=== PATIENT | female | born 1980 | race American Indian/Alaskan Native ===

== ENCOUNTER 2016-11-16 09:20 | Inpatient (IN) | payer MEDICARE ==
[2016-11-16] MEDS ORDERED: SUBLIMAZE IV ONE ×2 (11:10→12:25)
[2016-11-16] MEDS ORDERED: BENADRYL IV ONE (11:10)
[2016-11-16] MEDS ORDERED: REGLAN IV ONE (11:10)
--- NOTE | 2016-11-16 11:16 | Emergency Department Report ---
HPI - General Chief Complaint: Nausea/Vomiting/Diarrhea Time Seen by Provider: 11/16/16 11:02 - HPI HPI: Room 9 The patient is a 36-year-old female presenting with a chief complaint of abdominal pain. The patient states she has a history of gastroparesis since 05: 00 this morning she has had a "flare up." The patient states the pain feels like her gastroparesis with discomfort in the epigastric region associated with nausea and vomiting. Patient denies fever but does admit to diarrhea. The patient gives her pain a score of 10/10. The patient's mother reports the patient was recently at [facility] for a GI bleed secondary to 3 bleeding ulcers Location: Epigastric region Duration: Consistent since 05:00 Quality: Feels "like gastroparesis" Severity: 10/10 Modifying factors: [see above] Context: [see above] Mode of transportation: [not driving] ED Past Medical Hx - Past Medical History Previous Medical History?: Yes Hx Hypertension: Yes Hx Congestive Heart Failure: Yes Hx Diabetes: Yes Hx Renal Disease: Yes ( Tuesday) Hx Asthma: Yes Hx COPD: Yes Hx HIV: No Additional medical history: gastroporesis - Surgical History Past Surgical History?: Yes Hx Cholecystectomy: Yes Additional Surgical History: c section, tubal ligation. fistula right arm - Family History Family history: no significant - Social History Smoking Status: Never Smoker Substance Use Type: None - Medications Home Medications: Home Medications Medication Instructions Recorded Confirmed Last Taken Type Labetalol [Normodyne TAB] 100 mg PO Q8HR #90 tablet 08/20/16 10/14/16 10/13/16 Rx Losartan [Cozaar] 100 mg PO QDAY #30 tablet 08/20/16 10/14/16 10/13/16 Rx Metoclopramide [Reglan ORAL LIQ] 10 mg PO TID 30 Days 08/21/16 10/14/16 Rx NIFEdipine XL [Procardia Xl] 90 mg PO BID #60 tablet 08/21/16 10/14/16 10/13/16 Rx HYDROcodone/APAP 5-325 [[place] 1 each PO Q8H PRN #10 tablet 09/11/16 10/14/16 Rx 5/325] cloNIDine [Catapres] 0.2 mg PO TID #90 tablet 09/11/16 10/14/16 10/13/16 Rx ED Review of Systems ROS: Stated complaint: NAUSEA/VOMITING Other details as noted in HPI Comment: All other systems reviewed and negative Constitutional: denies: chills, fever Eyes: denies: eye pain, eye discharge, vision change ENT: denies: ear pain, throat pain Respiratory: denies: cough, shortness of breath, wheezing Cardiovascular: denies: chest pain, palpitations Endocrine: no symptoms reported Gastrointestinal: abdominal pain, nausea, vomiting, diarrhea Genitourinary: denies: urgency, dysuria, discharge Musculoskeletal: back pain. denies: joint swelling, arthralgia Skin: denies: rash, lesions Neurological: denies: headache, weakness, paresthesias Psychiatric: denies: anxiety, depression Hematological/Lymphatic: denies: easy bleeding, easy bruising Physical Exam - Physical Exam Vital Signs: Vital Signs 11/16/16 09:57 Temperature 98.6 F Pulse Rate 116 H Respiratory 22 Rate Blood Pressure 194/99 O2 Sat by Pulse 99 Oximetry Physical Exam: GENERAL: The patient is well-developed well-nourished female rocking on stretcher appearing to be in moderate discomfort. [] HEENT: Normocephalic. Atraumatic. NECK: Supple. Trachea midline CHEST/LUNGS: Clear to auscultation. There is no respiratory distress noted. HEART/CARDIOVASCULAR: Regular. There is no tachycardia. There is no gallop rub or murmur. ABDOMEN: Abdomen is soft with epigastric discomfort to palpation. Patient has normal bowel sounds. There is no abdominal distention. SKIN: There is no rash. There is no edema. There is no diaphoresis. NEURO: The patient is awake, alert, and oriented. The patient is cooperative. The patient has normal speech MUSCULOSKELETAL: There is no evidence of acute injury. ED Course Vital Signs 11/16/16 09:57 Temperature 98.6 F Pulse Rate 116 H Respiratory 22 Rate Blood Pressure 194/99 O2 Sat by Pulse 99 Oximetry - Consultations Consultation #1: 11/16/16 11:[address] Pearl drake with transfusion of 2 units of red blood cells. Will follow Consultation #2: 11/16/16 11:59 GI paged 12:11-case discussed with Dr. Hudson 11/16/16 12:11 ED Medical Decision Making - Lab Data Result diagrams: 11/16/16 10:01 11/16/16 10:01 Laboratory Tests 11/16/16 11/16/16 10:01 10:01 WBC 9.4 RBC 1.92 L Hgb 5.3 L* Hct 16.0 L* MCV 83 MCH 28 MCHC 33 RDW 16.0 H Plt Count 363 Seg Neutrophils % Oracle Database Consultant Sodium 135 L Potassium 4.7 Chloride 94.1 L Carbon Dioxide 26 Anion Gap 20 BUN 88 H Creatinine 9.2 H Estimated GFR 6 BUN/Creatinine Ratio 9.56 Glucose 186 H Calcium 8.2 L Total Bilirubin 0.3 AST 8 ALT < 5 L Alkaline Phosphatase 84 Total Protein 6.7 Albumin 3.3 L Albumin/Globulin Ratio 1.0 Lipase 57 - Differential Diagnosis gastroparesis, GERD, malingering, hypertension Critical care attestation.: If time is entered above; I have spent that time in minutes in the direct care of this critically ill patient, excluding procedure time. ED Disposition Clinical Impression: Gastroparesis, ESRD on hemodialysis, Abdominal pain, GI bleed Disposition: OP ADMITTED IP TO THIS HOSP Is pt being admited?: Yes Does the pt Need Aspirin: No Condition: Serious Referrals: PRIMARY CARE, [Primary Care Provider] - 3-5 Days Time of Disposition: 11:45 (hospitalist paged)
[2016-11-16 11:21] LABS: Mean Corpuscular HGB Conc 33 % (30-34); Mean Corpuscular Hemoglobin 28 pg (28-32); Mean Corpuscular Volume 83 fl (79-97); Platelet Count 363 K/mm3 (140-440); Red Blood Count 1.92 M/mm3 (3.65-5.03); White Blood Count 9.4 K/mm3 (4.5-11.0)
[2016-11-16 11:24] LABS: Hemoglobin 5.3 gm/dl (10.1-14.3)
[2016-11-16] MEDS ORDERED: NACL 0.9% 500 ML 500 ML IV ONE (11:25)
[2016-11-16 11:37] LABS: Albumin 3.3 g/dL (3.9-5); Alkaline Phosphatase 84 units/L (35-129); Anion Gap 20 mmol/L; BUN/Creatinine Ratio 9.56; Bilirubin,Total 0.3 mg/dL (0.1-1.2); Blood Urea Nitrogen 88 mg/dL (7-17); Calcium 8.2 mg/dL (8.4-10.2); Carbon Dioxide 26 mmol/L (22-30); Chloride 94.1 mmol/L (98-107); Glucose 186 mg/dL (65-100); Lipase 57 units/L (13-60); Potassium 4.7 mmol/L (3.6-5.0); Sodium 135 mmol/L (137-145); Total Protein 6.7 g/dL (6.3-8.2)
[2016-11-16 11:38] LABS: Alanine Aminotransferase < 5 units/L (7-56)
[2016-11-16] MEDS ORDERED: PROTONIX IV ONE (11:58)
[2016-11-16 12:07] LABS: Anisocytosis 1+; Basophils % (Manual) 0 % (0.0-1.8); Blastocytes % (Manual) 0 %; Eosinophils % (Manual) 0 % (0.0-4.3); Hypochromasia 1+
[2016-11-16 12:08] LABS: Diff Status Complete; Microcytosis 1+; Ovalocytes Few
--- NOTE | 2016-11-16 12:11 | Admit Criteria Form ---
Admission Criteria Documentation: ANEMIA, IRON DEFICIENCY OR UNSPECIFIED Clinical Indications for Inpatient Care (Place 'X' for any and all applicable criteria): Admission is indicated for ANY ONE of the following(1)(2)(3)(4)(5)(6)(7): [X] I. Inpatient admission required rather than observation care (Also use Anemia, Iron Deficiency or Unspecified: Observation Care guideline as appropriate) because of ANY ONE of the following: [] a) Hemodynamic instability that is severe or persistent [] b) Active bleeding that cannot be rapidly controlled [] c) CVS symptoms (i.e., dyspnea, chest pain, heart failure) that are severe or persistent [] d) Neurologic symptoms (i.e., cognitive impairment, recurrent syncope or near syncope) that are severe or persistent [] e) Cardiac arrhythmias of immediate concern [] f) Acute peripheral ischemia (e.g., pulseless, cool, mottled, or cyanotic extremity) [] g) High-risk low platelet count [X] h) Acute renal failure [X] i) Ongoing transfusion for blood loss (greater than 2 units) [] j) IV fluid to replace significant ongoing (eg, >24 hours) losses (> 3 L/m2 per day) [] k) Pulmonary artery catheter monitoring [] l) Supplemental oxygen or respiratory treatments for over 24 hours that are performable only in acute inpatient setting [] m) Immediate inpatient surgery [X] n) Other condition, treatment or monitoring requiring inpatient admission [] II Active massive hemorrhage [] III. Active hemolysis with rapidly progressive anemia [A](6) Extended stay beyond goal length of stay may be needed for (17)(18) []a) Diagnosed cause of anemia requiring longer hospitalization (eg, active GI bleeding, immune hemolysis requiring electrophoresis, complications of malignancy requiring acute care []b) Continued emergent anemia indicators (23) []c) Transfusion reactions []d) Associated leukopenia or thrombocytopenia needing inpatient care []e) Active comorbidities (eg, renal failure, heart failure) The original [facility] content created by [facility] has been revised. The portions of the content which have been revised are identified through the use of italic text or in bold. [facility] Guidelines has neither reviewed nor approved the modified material. All other unmodified content is copyright [facility]. Please see references footnoted in the original [facility] edition 2016 Admission Criteria Met: Yes
[2016-11-16] MEDS ORDERED: ATIVAN IV ONE (12:25)
[2016-11-16] MEDS ORDERED: DILAUDID ONE (12:35)
[2016-11-16] MEDS: DILAUDID IV PRN ×3 (12:45→23:54)
--- NOTE | 2016-11-16 14:02 | Gastroenterology Consultation ---
History of Present Illness - Reason for Consult Consult date: 11/16/16 CGE, anemia - History of Present Illness Ms. Brownlee is a 36 y/o female admitted with reported abdominal pain and CGE. She is currently very lethargic and a poor historian, therefore, information is initially obtained per chart review and nursing. The patient reports "red" in her emesis, however nursing report since she has been in the ED her emesis appears dark. She is noted to have an H/H of 5.3/. She denies NSAID use but reports a hx of gastroparesis. Of note, she was recently seen twice during October at [facility] once for respiratory failure and once for GI bleeding. on she underwent EGD with [facility] for hematemesis and was found to have 3 gastric ulcers, one with visible vessel requiring APC, injection and clip. It was thought to be NSAID induced as, per note, she has underwent several EGDS in the past that were negative with a negative H pylori. She was last discharged from [facility] on 11/12/16 post respiratory failure 2/2 pulmonary edema requiring BIPAP. Past History Past Medical History: anemia, COPD, diabetes, dialysis, ESRD, heart failure, hypertension, renal failure Past Surgical History: Other (graft) Social history: lives with family Family history: no significant family history Medications and Allergies Allergies Allergy/AdvReac Type Severity Reaction Status Date / Time lisinopril Allergy Shortness Verified 09/07/16 11:27 of Breath morphine Allergy Hives Verified 09/17/16 21:15 Penicillins Allergy Hives Verified 09/07/16 11:27 Home Medications Medication Instructions Recorded Confirmed Last Taken Type Labetalol [Normodyne TAB] 100 mg PO Q8HR #90 tablet 08/20/16 10/14/16 10/13/16 Rx Losartan [Cozaar] 100 mg PO QDAY #30 tablet 08/20/16 10/14/16 10/13/16 Rx Metoclopramide [Reglan ORAL LIQ] 10 mg PO TID 30 Days 08/21/16 10/14/16 Rx NIFEdipine XL [Procardia Xl] 90 mg PO BID #60 tablet 08/21/16 10/14/16 10/13/16 Rx HYDROcodone/APAP 5-325 [[place] 1 each PO Q8H PRN #10 tablet 09/11/16 10/14/16 Rx 5/325] cloNIDine [Catapres] 0.2 mg PO TID #90 tablet 09/11/16 10/14/16 10/13/16 Rx Active Meds: Active Medications Hydromorphone HCl (Dilaudid) 1 mg IV Q4H PRN PRN Reason: Pain Last Admin: 11/16/16 12:45 Dose: 1 mg Review of Systems - Review of Systems ROS unobtainable: due to mental status All systems: negative Exam - Constitutional Vital Signs: Temp Pulse Resp BP Pulse Ox 98.6 F 116 H 22 194/99 99 11/16/16 09:57 11/16/16 09:57 11/16/16 12:45 11/16/16 09:57 11/16/16 09:57 General appearance: no acute distress, other (drowsy) - EENT Eyes: EOM intact ENT: hearing intact - Neck Neck: supple - Respiratory Respiratory: bilateral: CTA - Cardiovascular Rhythm: regular Heart Sounds: Present: S1 & S2 - Gastrointestinal General gastrointestinal: Present: soft, tender (TTP throughout), non-distended , normal bowel sounds - Integumentary Integumentary: Present: warm, dry - Neurologic Neurological: other (drowsy) - Psychiatric Psychiatric: cooperative - Labs CBC & Chem 7: 11/16/16 10:01 11/16/16 10:01 Lab Results: Laboratory Results - last 24 hr 11/16/16 11/16/16 10:01 10:01 WBC 9.4 RBC 1.92 L Hgb 5.3 L* Hct 16.0 L* MCV 83 MCH 28 MCHC 33 RDW 16.0 H Plt Count 363 Add Manual Diff Complete Total Counted 100 Seg Neutrophils % Aquatic Instructor Seg Neuts % (Manual) 97.0 H Band Neutrophils % 0 Lymphocytes % (Manual) 2.0 L Reactive Lymphs % (Man) 0 Monocytes % (Manual) 1.0 Eosinophils % (Manual) 0 Basophils % (Manual) 0 Metamyelocytes % 0 Myelocytes % 0 Promyelocytes % 0 Blast Cells % 0 Nucleated RBC % Not Reportable Seg Neutrophils # Man 9.1 H Band Neutrophils # 0.0 Lymphocytes # (Manual) 0.2 L Abs React Lymphs (Man) 0.0 Monocytes # (Manual) 0.1 Eosinophils # (Manual) 0.0 Basophils # (Manual) 0.0 Metamyelocytes # 0.0 Myelocytes # 0.0 Promyelocytes # 0.0 Blast Cells # 0.0 WBC Morphology Not Reportable Hypersegmented Neuts Not Reportable Hyposegmented Neuts Not Reportable Hypogranular Neuts Not Reportable Smudge Cells Not Reportable Toxic Granulation Not Reportable Toxic Vacuolation Not Reportable Dohle Bodies Not Reportable Pelger-Huet Anomaly Not Reportable Sarah Rods Not Reportable Platelet Estimate Appears normal Clumped Platelets Not Reportable Plt Clumps, EDTA Not Reportable Large Platelets Not Reportable Giant Platelets Not Reportable Platelet Satelliting Not Reportable Plt Morphology Comment Not Reportable RBC Morphology Not Reportable Dimorphic RBCs Not Reportable Polychromasia Not Reportable Hypochromasia 1+ Poikilocytosis Not Reportable Anisocytosis 1+ Microcytosis 1+ Macrocytosis Not Reportable Spherocytes Not Reportable Pappenheimer Bodies Not Reportable Sickle Cells Not Reportable Target Cells Not Reportable Tear Drop Cells Not Reportable Ovalocytes Few Helmet Cells Not Reportable [place] Bodies Not Reportable [place] Rings Not Reportable [place] Cells Not Reportable Bite Cells Not Reportable Crenated Cell Not Reportable Elliptocytes Not Reportable Acanthocytes (Spur) Not Reportable Rouleaux Not Reportable Hemoglobin C Crystals Not Reportable Schistocytes Not Reportable Malaria parasites Not Reportable Jerald Bodies Not Reportable Hem Pathologist Commnt No Sodium 135 L Potassium 4.7 Chloride 94.1 L Carbon Dioxide 26 Anion Gap 20 BUN 88 H Creatinine 9.2 H Estimated GFR 6 BUN/Creatinine Ratio 9.56 Glucose 186 H Calcium 8.2 L Total Bilirubin 0.3 AST 8 ALT < 5 L Alkaline Phosphatase 84 Total Protein 6.7 Albumin 3.3 L Albumin/Globulin Ratio 1.0 Lipase 57 Assessment and Plan 1. CGE 2. Severe Anemia -Agree with transfusion -Continue to monitor H/H -Hold all blood thinning meds -PPI gtt -Keep NPO -EGD tomorrow after transfusion 2. ESRD -HD Per Renal.
--- NOTE | 2016-11-16 15:39 | History and Physical Report ---
History of Present Illness Date of examination: 11/16/16 Date of admission: 11/16/16 12:49 Chief complaint: Abdominal pain History of present illness: Patient is a 35-year-old woman with a history of hypertension, end-stage renal disease on hemodialysis, asthma, type 2 diabetes mellitus on insulin and gastroparesis who presented for severe worsening constant diffuse radiating all over abdominal pains started that today without any aggravating or relieving factors associated with nausea vomiting and coffee-ground emesis. She had a whole workup full of coffee ground emesis. Patient is writhing in pain as a IV Dilaudid. She presented initially here 10/14/2016 and left AMA. Then She went to [facility] and was admitted and found to have bleeding ulcers. I have already spoken to the gastroenterology, Dr. José Hudson at [facility] station. Past History Past Medical History: anemia, COPD, diabetes, dialysis, ESRD, heart failure, hypertension, renal failure Past Surgical History: Other (graft) Social history: lives with family Family history: no significant family history Medications and Allergies Allergies Allergy/AdvReac Type Severity Reaction Status Date / Time lisinopril Allergy Shortness Verified 09/07/16 11:27 of Breath morphine Allergy Hives Verified 09/17/16 21:15 Penicillins Allergy Hives Verified 09/07/16 11:27 Home Medications Medication Instructions Recorded Confirmed Last Taken Type Labetalol [Normodyne TAB] 100 mg PO Q8HR #90 tablet 08/20/16 10/14/16 10/13/16 Rx Losartan [Cozaar] 100 mg PO QDAY #30 tablet 08/20/16 10/14/16 10/13/16 Rx Metoclopramide [Reglan ORAL LIQ] 10 mg PO TID 30 Days 08/21/16 10/14/16 Rx NIFEdipine XL [Procardia Xl] 90 mg PO BID #60 tablet 08/21/16 10/14/16 10/13/16 Rx HYDROcodone/APAP 5-325 [[place] 1 each PO Q8H PRN #10 tablet 09/11/16 10/14/16 Rx 5/325] cloNIDine [Catapres] 0.2 mg PO TID #90 tablet 09/11/16 10/14/16 10/13/16 Rx Active Meds: Active Medications Hydromorphone HCl (Dilaudid) 1 mg IV Q4H PRN PRN Reason: Pain Last Admin: 11/16/16 12:45 Dose: 1 mg Pantoprazole Sodium 80 mg/ (Sodium Chloride) 100 mls @ 10 mls/hr IV Q10H GABRIELLA PRN Reason: 8 MG/HR Sodium Chloride (Nacl 0.9% 1000 Ml) 1,000 mls @ 50 mls/hr IV DIRECT GABRIELLA Review of Systems All systems: negative (as HPI and all other ROS reviewed and negative.) Exam - Physical Exam Narrative exam: GEN: Ill-appearing NAD, AWAKE, ALERT, ORIENTATED 3 HEENT: NCAT, PERRL, EOMI, OP DRY NECK: SUPPLE, NO THYROMEGALY, NO JVD, NO LAD CVS: Regular tachycardic NORMAL S1S2 LUNGS/CHEST: CTA B, NORMAL CHEST EXPANSION B, GOOD AIR ENTRY B ABD: SOFT, DIFFUSE TENDERNESS IS EPIGASTRIC REGION GBS, NO REBOUND, SOME GUARDING EXT/SKIN: NO SIGNIFICANT EDEMA OR RASH MSK: FROM X 4 EXTREMITIES NEURO: CN 2-12 GROSSLY INTACT, NO NEW FOCAL DEFICITS PSY: Anxious - Constitutional Vitals: Temp Pulse Resp BP Pulse Ox 98.1 F 116 H 20 184/89 96 11/16/16 15:31 11/16/16 15:31 11/16/16 15:31 11/16/16 15:31 11/16/16 15:15 Results - Labs CBC & Chem 7: 11/16/16 10:01 11/16/16 10:01 Labs: Abnormal lab results 11/16/16 Range/Units 13:45 Crossmatch See Detail Assessment and Plan Patient is a 36-year-old woman with a history of hypertension, end-stage renal disease on hemodialysis, asthma, diabetes mellitus on insulin and gastroparesis who presented for severe worsening constant diffuse radiating all over abdominal pains started that today without any aggravating or relieving factors associated with nausea vomiting and coffee-ground emesis. She had a whole workup full of coffee ground emesis. Patient is writhing in pain as a IV Dilaudid. She presented initially here 10/14/2016 and left AMA. Then She went to [facility] and was admitted and found to have bleeding ulcers. I have already spoken to the gastroenterology, Dr. José Hudson at nurses station. She was found have hemoglobin was 5.3 and tachycardic. I have requested she be admitted to ICU. 1. Acute GI hemorrhage most likely upper GI from peptic ulcer disease: Consulted GI, endoscopy pending, treat with Protonix drip, npo until cleared by GI 2. Anemia requiring blood transfusion: Patient has poor peripheral IV access; therefore, will transfuse blood during hemodialysis 3. Insulin-dependent diabetes mellitus: Add sliding scale 4. DVT prophylaxis: SCDs only due to GI bleed 5. GI prophylaxis: On Protonix drip for now full code dispo: icu
[2016-11-16] MEDS ORDERED: NACL 0.9% 1000 ML 1,000 ML IV SCH (16:00)
[2016-11-16] MEDS: PROTONIX 80 MG in NACL 0.9% 100 ML IV SCH (16:27)
[2016-11-16] MEDS: BENADRYL IV PRN (20:09)
[2016-11-17] MEDS: PROTONIX 80 MG in NACL 0.9% 100 ML IV SCH ×2 (01:25→20:31)
[2016-11-17] MEDS: BENADRYL IV PRN ×3 (02:53→21:07)
[2016-11-17] MEDS: ZOFRAN IV PRN ×3 (02:57→21:08)
[2016-11-17] MEDS: DILAUDID IV PRN ×3 (04:01→20:50)
[2016-11-17] MEDS ORDERED: NACL 0.9% 1000 ML 1,000 ML ONE (07:50)
[2016-11-17] MEDS ORDERED: WATER FOR IRRIG STERILE IR ONE ×2 (07:51→14:09)
[2016-11-17] MEDS ORDERED: HALDOL ONE (09:12)
[2016-11-17] MEDS ORDERED: ATIVAN ONE (12:14)
[2016-11-17] MEDS ORDERED: HALDOL IM ONE (14:00)
[2016-11-17] MEDS ORDERED: ATIVAN IV ONE (14:00)
[2016-11-17] MEDS ORDERED: DIPRIVAN 10 MG/ML IV ONE ×5 (14:18→16:20)
[2016-11-17 14:50] LABS: Mean Corpuscular HGB Conc 34 % (30-34); Mean Corpuscular Hemoglobin 28 pg (28-32); Mean Corpuscular Volume 84 fl (79-97); Platelet Count 302 K/mm3 (140-440); Red Blood Count 1.91 M/mm3 (3.65-5.03); Red Cell Distribution Width 15.3 % (13.2-15.2); White Blood Count 10.2 K/mm3 (4.5-11.0)
[2016-11-17 14:51] LABS: BUN/Creatinine Ratio 10.35; Calcium 7.5 mg/dL (8.4-10.2); Chloride 96.9 mmol/L (98-107); Potassium 4.2 mmol/L (3.6-5.0)
--- NOTE | 2016-11-17 15:01 | Anesthesia Consultation ---
Anesthesia Consult and Med Hx Date of service: 11/17/16 - Airway ROM Head & Neck: Adequate Mental/Hyoid Distance: Adequate Mallampati Class: Class II Intubation Access Assessment: Probably Good - Pulmonary Exam CTA: Yes - Cardiac Exam Cardiac Exam: RRR - Pre-Operative Health Status ASA Pre-Surgery Classification: ASA4 Proposed Anesthetic Plan: MAC - Pre-Anesthesia Comment Pre-Anesthesia Comments: Patient sedated; history obtained from chart; phone consent from mother - Pulmonary Hx Smoking: Yes Hx Asthma: Yes COPD: Yes Hx Pneumonia: No - Cardiovascular System Hx Hypertension: Yes (CHF) Hx Coronary Artery Disease: Yes - Central Nervous System CVA: Yes Hx Psychiatric Problems: No - Gastrointestinal Hx Ulcer: Yes - Endocrine Hx Renal Disease: Yes (HD Tuesday) Hx End Stage Renal Disease: Yes (last dialysis today 11/17/16) - Hematic Hx Anemia: Yes (severe anemia last H/H: 5.4/ received 4 units PRBCs today with dialysis) - Other Systems Hx Alcohol Use: Yes Hx Cancer: No (has 4 lumps in her breast, and ? intestinal cancer)
--- NOTE | 2016-11-17 15:04 | Consultation ---
History of Present Illness - Reason for Consult Consult date: 11/17/16 bleeding AVF and GI bleeding - History of Present Illness 36 year-old female woman with a history of hypertension, end-stage renal disease on hemodialysis M/W/F, asthma, type 2 diabetes mellitus on insulin with neuropathy, retinopathy and nephropathy, and gastroparesis who presented for severe abdominal pain and coffee ground emesis. She was recently seen twice during October at [facility] for respiratory failure and for GI bleeding and on 11/04/16 she underwent EGD with [facility] for hematemesis and was found to have 3 gastric ulcers, one with visible vessel requiring APC, injection and clip suspected to be NSAID related. She presented to [facility] on 10/14 and left AMA. She went to [facility] and has now represented to [facility]. Patient is pending EGD and may subsequently need embolization. In addition, patient is having prolonged bleeding after decannulation from AV access. Past History Past Medical History: anemia, COPD, diabetes, dialysis, ESRD, heart failure, hypertension, renal failure Past Surgical History: Other (graft) Social history: lives with family Family history: no significant family history Medications and Allergies Allergies Allergy/AdvReac Type Severity Reaction Status Date / Time lisinopril Allergy Shortness Verified 09/07/16 11:27 of Breath morphine Allergy Hives Verified 09/17/16 21:15 Penicillins Allergy Hives Verified 09/07/16 11:27 Home Medications Medication Instructions Recorded Confirmed Last Taken Type Labetalol [Normodyne TAB] 100 mg PO Q8HR #90 tablet 08/20/16 10/14/16 11/16/16 07:00 Rx Losartan [Cozaar] 100 mg PO QDAY #30 tablet 08/20/16 10/14/16 11/16/16 07:00 Rx Metoclopramide [Reglan ORAL LIQ] 10 mg PO TID 30 Days 08/21/16 10/14/16 07:00 Rx NIFEdipine XL [Procardia Xl] 90 mg PO BID #60 tablet 08/21/16 10/14/16 11/16/16 07:00 Rx 90mg HYDROcodone/APAP 5-325 [[place] 1 each PO Q8H PRN #10 tablet 09/11/16 10/14/16 07:00 Rx 5/325] cloNIDine [Catapres] 0.2 mg PO TID #90 tablet 09/11/16 11/16/16 11/16/16 07:00 Rx Active Meds: Active Medications Diphenhydramine HCl (Benadryl) 25 mg IV Q6H PRN PRN Reason: Itching Last Admin: 11/17/16 02:53 Dose: 25 mg Hydralazine HCl (Apresoline) 10 mg IV Q4HR PRN PRN Reason: HTN SBP>=180 OR CELENA>=110 Hydromorphone HCl (Dilaudid) 1 mg IV Q4H PRN PRN Reason: Pain Last Admin: 11/17/16 04:01 Dose: 1 mg Sodium Chloride (Nacl 0.9% 1000 Ml) 1,000 mls @ 50 mls/hr IV DIRECT GABRIELLA Pantoprazole Sodium 80 mg/ (Sodium Chloride) 100 mls @ 10 mls/hr IV DIRECT GABRIELLA PRN Reason: 8 MG/HR Last Admin: 11/17/16 01:25 Dose: 10 mls/hr Desmopressin Acetate 20 mcg/ (Sodium Chloride) 55 mls @ 100 mls/hr IV ONCE ONE Stop: 11/17/16 16:00 Labetalol HCl (Normodyne) 10 mg IV Q4H PRN PRN Reason: HTN SBP>=180 Ondansetron HCl (Zofran) 4 mg IV Q4H PRN PRN Reason: Nausea And Vomiting Last Admin: 11/17/16 02:57 Dose: 4 mg Review of Systems All systems: negative (see HPI) Exam - Constitutional Vitals: Temp Pulse Resp BP Pulse Ox 98.8 F 114 H 22 176/94 100 11/17/16 00:00 11/16/16 20:00 11/17/16 02:00 11/16/16 20:00 11/17/16 02:00 General appearance: Present: no acute distress - EENT Eyes: Present: EOM intact ENT: hearing intact - Respiratory Respiratory effort: normal - Cardiovascular Rhythm: other (tachycardic) - Extremities Extremities: normal temperature, normal color, abnormal (RUE AVF with bleeding from one of dialysis access sites ; technologist holding pressure) Peripheral Pulses: within normal limits (palpable DP bilateral, bilateral radial and ulnar) Results - Labs CBC & Chem 7: 11/17/16 06:29 11/17/16 04:00 Labs: Abnormal lab results 11/16/16 11/16/16 11/16/16 Range/Units 13:45 16:30 22:06 POC Glucose 144 H 115 H (70-105) Crossmatch See Detail Assessment and Plan 36-year-old female with end-stage renal disease and multiple episodes of upper GI bleed. Patient is experiencing prolonged bleeding from her 2 year old right upper extremity AV access site. 20 g of DDAVP was administered intravenously and this decreased the bleeding somewhat. Subsequently, Surgicel with 2 x 2's and tape was applied to the fistula site. There is a thrill proximal and distal to the access site. The patient has a right upper extremity port placed 1 year old which is probably resulting in outflow narrowing and subsequent prolonged bleeding. The patient will require a fistulogram with angioplasty. The patient has multiple episodes of upper GI bleeding. Gastroenterology is planning to perform endoscopy. Patient may require embolization to a targeted region based on the endoscopy findings or prior endoscopy findings at [facility]. Her prior endoscopy demonstrated multiple ulcers in the antrum with a 4 cm ulcer with a visible vessel noted. Patient will probably require both empiric gastroduodenal artery and fistulogram and angioplasty. The time course will be determined by GI and upper GI bleeding. NPO after midnight.
--- NOTE | 2016-11-17 15:06 | Anesthesia Day of Surgery ---
Anesthesia Day of Surgery - Day of Surgery Patient Examined: Yes Patient H&P Reviewed: Yes Patient is NPO: Yes Beta Blockers: Yes Cardiac Clearance: No Pulmonary Clearance: No
--- NOTE | 2016-11-17 15:13 | Gastroenterology Progress Note ---
Assessment and Plan 1. UGI bleeding. EGD is planned however, patient just got off dialysis and has had arterial bleeding from her access for the past 45 minutes despite compression after the catheter was removed. Dr. Kamari Rosales, interventional radiologist was consulted stat and DDAVP was ordered by him. Coags have been drawn. Her mother has given consent for the procedure due to a mental health disoder 2. ESRD on HD 3. Hypertension 4. AV shunt bleeding - now addressed as above. Subjective Date of service: 11/17/16 Principal diagnosis: UGI bleeding Interval history: The patient reports vomiting blood last around 5AM Objective - Constitutional Vitals: Temp Pulse Resp BP Pulse Ox 98.8 F 114 H 22 176/94 100 11/17/16 00:00 11/16/16 20:00 11/17/16 02:00 11/16/16 20:00 11/17/16 02:00 General appearance: no acute distress - EENT Eyes: PERRL, EOM intact ENT: hearing intact - Respiratory Respiratory effort: normal Respiratory: bilateral: CTA - Cardiovascular Rhythm: regular - Gastrointestinal General gastrointestinal: Present: soft, non-tender, non-distended, normal bowel sounds Rectal Exam: deferred - Genitourinary Female Genitourinary: deferred - Neurologic Neurological: alert and oriented x3 - Psychiatric Psychiatric: no appropriate mood/affect, no intact judgment & insight - Labs CBC & Chem 7: 11/16/16 10:01 11/16/16 10:01 Labs: Laboratory Results - last 24 hr 11/16/16 11/16/16 11/16/16 13:45 16:30 22:06 Estimated GFR BUN/Creatinine Ratio POC Glucose 144 H 115 H Blood Type B POSITIVE Antibody Screen Positive Antibody Identification Anti-E Crossmatch See Detail 11/17/16 04:00 Estimated GFR 10 BUN/Creatinine Ratio 10.35 POC Glucose Blood Type Antibody Screen Antibody Identification Crossmatch
--- NOTE | 2016-11-17 15:40 | Consultation ---
History of Present Illness - Reason for Consult Consult date: 11/17/16 end stage renal disease, accelerated hypertension Requesting physician: INA WILLOUGHBY - History of Present Illness 36-year-old lady with a history of end-stage renal disease secondary to diabetic /hypertensive nephropathy. Patient dialyzes on a Tuesday schedule at [facility] dialysis. Patient has a history of diabetic gastroparesis and has had numerous hospitalizations on account of exacerbations which are usually associated with accelerated hypertension and volume overload. She now presented with abdominal pain 10/10 in severity in association with N /V. No aggravating or relieving factors. She states that the vomitus is coffee ground in color. She states that her symptoms are similar to her previous presentations. Her Hgb in ED was 5.3. We made arrangements for emergency dialysis and recived 2 units of PRBCs on dialysis last night. Past History Past Medical History: diabetes (2 diabetes mellitus, occasional by retinopathy, neuropathy, gastroparesis), ESRD, GERD, hypertension, hyperlipidemia, renal failure, other (end-stage renal disease, hypertension, hyperlipidemia, diabetes with neuropathy, diabetic retinopathy, anxiety disorder, gastroparesis) Past Surgical History: , Other (cholecystectomy, section, surgery right leg following an accident, bilateral tubal ligation, laser therapy in both retina, right AV fistula, permacath placement) Social history: no significant social history, lives with family (lives with her children ages 16, 14 and 5. Her youngest child is disabled. Patient cares for the child with assistance of her mother who lives close by), other (he used to work as a waiter/waitress). denies: smoking, alcohol abuse, prescription drug abuse , IV drug use Family history: CAD (father of acute myocardial infraction about age 56), cancer (mother had lung cancer.), diabetes (both parents), hypertension (both parents) Medications and Allergies Allergies Allergy/AdvReac Type Severity Reaction Status Date / Time lisinopril Allergy Shortness Verified 09/07/16 11:27 of Breath morphine Allergy Hives Verified 09/17/16 21:15 Penicillins Allergy Hives Verified 09/07/16 11:27 Home Medications Medication Instructions Recorded Confirmed Last Taken Type Labetalol [Normodyne TAB] 100 mg PO Q8HR #90 tablet 08/20/16 10/14/16 11/16/16 07:00 Rx Losartan [Cozaar] 100 mg PO QDAY #30 tablet 08/20/16 10/14/16 11/16/16 07:00 Rx Metoclopramide [Reglan ORAL LIQ] 10 mg PO TID 30 Days 08/21/16 10/14/16 07:00 Rx NIFEdipine XL [Procardia Xl] 90 mg PO BID #60 tablet 08/21/16 10/14/16 11/16/16 07:00 Rx 90mg HYDROcodone/APAP 5-325 [[place] 1 each PO Q8H PRN #10 tablet 09/11/16 10/14/16 07:00 Rx 5/325] cloNIDine [Catapres] 0.2 mg PO TID #90 tablet 09/11/16 11/16/16 11/16/16 07:00 Rx Active Meds: Active Medications Diphenhydramine HCl (Benadryl) 25 mg IV Q6H PRN PRN Reason: Itching Last Admin: 11/17/16 02:53 Dose: 25 mg Hydralazine HCl (Apresoline) 10 mg IV Q4HR PRN PRN Reason: HTN SBP>=180 OR CELENA>=110 Hydromorphone HCl (Dilaudid) 1 mg IV Q4H PRN PRN Reason: Pain Last Admin: 11/17/16 04:01 Dose: 1 mg Sodium Chloride (Nacl 0.9% 1000 Ml) 1,000 mls @ 50 mls/hr IV DIRECT GABRIELLA Pantoprazole Sodium 80 mg/ (Sodium Chloride) 100 mls @ 10 mls/hr IV DIRECT GABRIELLA PRN Reason: 8 MG/HR Last Admin: 11/17/16 01:25 Dose: 10 mls/hr Desmopressin Acetate 20 mcg/ (Sodium Chloride) 55 mls @ 100 mls/hr IV ONCE ONE Stop: 11/17/16 16:00 Labetalol HCl (Normodyne) 10 mg IV Q4H PRN PRN Reason: HTN SBP>=180 Ondansetron HCl (Zofran) 4 mg IV Q4H PRN PRN Reason: Nausea And Vomiting Last Admin: 11/17/16 02:57 Dose: 4 mg Review of Systems All systems: negative Constitutional: fatigue, malaise, poor appetite, no weight loss, no weight gain , no chills Ears, nose, mouth and throat: no tinnitis, no decreased hearing, no nasal congestion Breasts: deferred Cardiovascular: shortness of breath, no chest pain, no orthopnea, no palpitations Respiratory: no cough, no excessive sputum Gastrointestinal: abdominal pain, nausea, vomiting, hematemesis Genitourinary Female: no dyspareunia, no dysmenorrhea, no pelvic pain Rectal: no pain, no incontinence Musculoskeletal: no neck stiffness, no neck pain Integumentary: no rash, no pruritis Neurological: no paralysis, no weakness, no parathesias, no lack of coordination Psychiatric: no anxiety, no memory loss Endocrine: no cold intolerance, no heat intolerance Hematologic/Lymphatic: no easy bruising, no easy bleeding Allergic/Immunologic: no urticaria Exam - Vital Signs Vital signs: Vital Signs Pulse Ox 98 11/16/16 09:48 - Physical Exam Narrative exam: General appearance: well-developed, well-nourished, appears stated age, moderate distress EENT: PERRL, mucous membranes moist, pale conjectiva Neck: Present: neck supple, trachea midline. Absent: JVD/HJR, Masses Respiratory: Decreased Breath Sounds, no wheezing Heart: regular, normal heart rate, S1S2, no murmurs Gastrointestinal: Present: normal. Absent: tenderness, distended, masses, guarding Integumentary: no rash, warm and dry Neurologic: no focal deficit, alert and oriented x3, gait normal, strength 5/5 Musculoskeletal: Absent: deformities, joint swelling Psychiatric: mood/affect appropriate, cooperative Results - Lab Results 11/16/16 10:01 11/17/16 04:00 Most recent lab results Calcium 7.5 mg/dL (8.4-10.2) L 11/17/16 04:00 Assessment and Plan 1. ESRD on HD 2. Malignant Hypertension 3. Pulmonary edema 4. Gastroparesis exacerbation 5. Nausea/vomiting 2/2 #4 6. Abdominal pain 2/2 #4 7. Severe pulmonary HTN on Sildinafile therapy 8. Anemia of ESRD and acute GI blood loss 9. GI bleeding 10. DM II with ESRD 11. Excessive bleeding from AVF ? stenosis Plan: -Start Cardene drip, current BP over 200 and she is unable to take oral antihypertensives 2/2 GI bleeding -She has dialysis last night and today with total net UF of 8 L -Will reevaluate for dialysis in am -Pain control -EGD per GI -Recheck H/H (so far she has received 4 units of PRBCs) -No ESAs with her present BP -Vascular consult R: excessive bleeding from AVF -Check coags -DDAVP to help with bleeding Thank you
--- NOTE | 2016-11-17 15:44 | Consultation ---
History of Present Illness - Reason for Consult Consult date: 11/17/16 GI Bleed Requesting physician: ZITA RDZ - History of Present Illness 36 y/o female with ESRD on HD admitted with GI bleed. apparently was seen at [facility] just a few days to weeks ago with ulcers that were bleeding. Scoped at that time. Not sure what was done. Presents today with low hemoglobin. Also in need of HD. Past History Past Medical History: anemia, COPD, diabetes, dialysis, ESRD, heart failure, hypertension, renal failure Past Surgical History: Other (graft) Social history: lives with family Family history: no significant family history Medications and Allergies Allergies Allergy/AdvReac Type Severity Reaction Status Date / Time lisinopril Allergy Shortness Verified 09/07/16 11:27 of Breath morphine Allergy Hives Verified 09/17/16 21:15 Penicillins Allergy Hives Verified 09/07/16 11:27 Home Medications Medication Instructions Recorded Confirmed Last Taken Type Labetalol [Normodyne TAB] 100 mg PO Q8HR #90 tablet 08/20/16 10/14/16 11/16/16 07:00 Rx Losartan [Cozaar] 100 mg PO QDAY #30 tablet 08/20/16 10/14/16 11/16/16 07:00 Rx Metoclopramide [Reglan ORAL LIQ] 10 mg PO TID 30 Days 08/21/16 10/14/16 07:00 Rx NIFEdipine XL [Procardia Xl] 90 mg PO BID #60 tablet 08/21/16 10/14/16 11/16/16 07:00 Rx 90mg HYDROcodone/APAP 5-325 [[place] 1 each PO Q8H PRN #10 tablet 09/11/16 10/14/16 07:00 Rx 5/325] cloNIDine [Catapres] 0.2 mg PO TID #90 tablet 09/11/16 11/16/16 11/16/16 07:00 Rx Active Meds: Active Medications Diphenhydramine HCl (Benadryl) 25 mg IV Q6H PRN PRN Reason: Itching Last Admin: 11/17/16 02:53 Dose: 25 mg Hydralazine HCl (Apresoline) 10 mg IV Q4HR PRN PRN Reason: HTN SBP>=180 OR CELENA>=110 Hydromorphone HCl (Dilaudid) 1 mg IV Q4H PRN PRN Reason: Pain Last Admin: 11/17/16 04:01 Dose: 1 mg Sodium Chloride (Nacl 0.9% 1000 Ml) 1,000 mls @ 50 mls/hr IV DIRECT GABRIELLA Pantoprazole Sodium 80 mg/ (Sodium Chloride) 100 mls @ 10 mls/hr IV DIRECT GABRIELLA PRN Reason: 8 MG/HR Last Admin: 11/17/16 01:25 Dose: 10 mls/hr Desmopressin Acetate 20 mcg/ (Sodium Chloride) 55 mls @ 100 mls/hr IV ONCE ONE Stop: 11/17/16 16:00 Labetalol HCl (Normodyne) 10 mg IV Q4H PRN PRN Reason: HTN SBP>=180 Ondansetron HCl (Zofran) 4 mg IV Q4H PRN PRN Reason: Nausea And Vomiting Last Admin: 11/17/16 02:57 Dose: 4 mg Exam - Constitutional Vitals: Temp Pulse Resp BP Pulse Ox 98.8 F 114 H 22 176/94 100 11/17/16 00:00 11/16/16 20:00 11/17/16 02:00 11/16/16 20:00 11/17/16 02:00 Results - Labs CBC & Chem 7: 11/16/16 10:01 11/17/16 04:00 Labs: Abnormal lab results 11/16/16 11/16/16 11/16/16 Range/Units 13:45 16:30 22:06 Chloride (98-107) mmol/L BUN (7-17) mg/dL Creatinine (0.7-1.2) mg/dL Glucose (65-100) mg/dL POC Glucose 144 H 115 H (70-105) Calcium (8.4-10.2) mg/dL Crossmatch See Detail 11/17/16 Range/Units 04:00 Chloride 96.9 L (98-107) mmol/L BUN 58 H (7-17) mg/dL Creatinine 5.6 H (0.7-1.2) mg/dL Glucose 191 H (65-100) mg/dL POC Glucose (70-105) Calcium 7.5 L (8.4-10.2) mg/dL Crossmatch Assessment and Plan 36 y/o with ESRD on HD, admitted with acute blood loss anemia, thought secondary to GI bleed, now with bleeding right arm fistula. 1. DDAVP given by vascular 2. Patient may need ballooning for tamponade therapy 3. Still needs to be scoped by GI 4. Control BP 5. Volume removal per HD 6. Transfuse for HgB less than 7. has had 4 units total since admit 7. Overall prognosis is guarded, will need more blood products most likely. CCT 31 minutes
[2016-11-17] MEDS: APRESOLINE IV PRN ×2 (15:45→23:42)
[2016-11-17] MEDS ORDERED: DDAVP 20 MCG in NACL 0.9% 50 ML IV ONE (15:59)
--- NOTE | 2016-11-17 16:06 | Progress Note ---
Assessment and Plan Assessment and plan: 1. Acute GI hemorrhage most likely upper GI from peptic ulcer disease with anemia requiring transfusion- for transfusion; f/u GI for further recommendations- for EGD; refused passage of NGT; cont Protonix drip, npo; monitor H/H 2. Insulin-dependent diabetes mellitus-cotn sliding scale 3. DVT prophylaxis: SCDs only due to GI bleed 5. ESRD on HD- f/u renal for HD; monitor lytes 6. Mental disorder-? MR- psyche consult CCT exclusive of all other billable procedures 34 minutes History Interval history: f/u GIB; severe anemia Recently seen at the bedside, refusing passage of NG tube Hospitalist Physical - Constitutional Vitals: Temp Pulse Resp BP Pulse Ox 98.8 F 114 H 22 176/94 100 11/17/16 00:00 11/16/16 20:00 11/17/16 02:00 11/16/16 20:00 11/17/16 02:00 General appearance: Present: no acute distress, well-nourished - EENT Eyes: Present: PERRL, EOM intact. Absent: scleral icterus, conjunctival injection ENT: hearing intact, no clear oral mucosa (membranes pale), no oropharyngeal erythema, no poor dentition - Neck Neck: Present: supple, normal ROM. Absent: enlarged thyroid, masses or JVD - Respiratory Respiratory effort: normal Respiratory: negative: diminished, rales, rhonchi, wheezing - Cardiovascular Rhythm: regular Heart Sounds: Present: S1 & S2. Absent: gallop - Extremities Extremities: no ischemia, pulses intact, pulses symmetrical, No edema Peripheral Pulses: within normal limits - Abdominal General gastrointestinal: soft, non-tender, non-distended, normal bowel sounds - Integumentary Integumentary: Present: clear - Psychiatric Psychiatric: appropriate mood/affect, intact judgment & insight, cooperative - Neurologic Neurologic: CNII-XII intact, moves all extremities Results - Labs CBC & Chem 7: 11/16/16 10:01 11/17/16 04:00 Labs: Laboratory Last Values WBC 9.4 K/mm3 (4.5-11.0) 11/16/16 10:01 RBC 1.92 M/mm3 (3.65-5.03) L 11/16/16 10:01 Hgb 5.3 gm/dl (10.1-14.3) L* 11/16/16 10:01 Hct 16.0 % (30.3-42.9) L* 11/16/16 10:01 MCV 83 fl (79-97) 11/16/16 10:01 MCH 28 pg (28-32) 11/16/16 10:01 MCHC 33 % (30-34) 11/16/16 10:01 RDW 16.0 % (13.2-15.2) H 11/16/16 10:01 Plt Count 363 K/mm3 (140-440) 11/16/16 10:01 Add Manual Diff Complete 11/16/16 10:01 Total Counted 100 11/16/16 10:01 Seg Neutrophils % Securities Attorney 11/16/16 10:01 Seg Neuts % (Manual) 97.0 % (40.0-70.0) H 11/16/16 10:01 Band Neutrophils % 0 % 11/16/16 10:01 Lymphocytes % (Manual) 2.0 % (13.4-35.0) L 11/16/16 10:01 Reactive Lymphs % (Man) 0 % 11/16/16 10:01 Monocytes % (Manual) 1.0 % (0.0-7.3) 11/16/16 10:01 Eosinophils % (Manual) 0 % (0.0-4.3) 11/16/16 10:01 Basophils % (Manual) 0 % (0.0-1.8) 11/16/16 10:01 Metamyelocytes % 0 % 11/16/16 10:01 Myelocytes % 0 % 11/16/16 10:01 Promyelocytes % 0 % 11/16/16 10:01 Blast Cells % 0 % 11/16/16 10:01 Nucleated RBC % Not Reportable 11/16/16 10:01 Seg Neutrophils # Man 9.1 K/mm3 (1.8-7.7) H 11/16/16 10:01 Band Neutrophils # 0.0 K/mm3 11/16/16 10:01 Lymphocytes # (Manual) 0.2 K/mm3 (1.2-5.4) L 11/16/16 10:01 Abs React Lymphs (Man) 0.0 K/mm3 11/16/16 10:01 Monocytes # (Manual) 0.1 K/mm3 (0.0-0.8) 11/16/16 10:01 Eosinophils # (Manual) 0.0 K/mm3 (0.0-0.4) 11/16/16 10:01 Basophils # (Manual) 0.0 K/mm3 (0.0-0.1) 11/16/16 10:01 Metamyelocytes # 0.0 K/mm3 11/16/16 10:01 Myelocytes # 0.0 K/mm3 11/16/16 10:01 Promyelocytes # 0.0 K/mm3 11/16/16 10:01 Blast Cells # 0.0 K/mm3 11/16/16 10:01 WBC Morphology Not Reportable 11/16/16 10:01 Hypersegmented Neuts Not Reportable 11/16/16 10:01 Hyposegmented Neuts Not Reportable 11/16/16 10:01 Hypogranular Neuts Not Reportable 11/16/16 10:01 Smudge Cells Not Reportable 11/16/16 10:01 Toxic Granulation Not Reportable 11/16/16 10:01 Toxic Vacuolation Not Reportable 11/16/16 10:01 Dohle Bodies Not Reportable 11/16/16 10:01 Pelger-Huet Anomaly Not Reportable 11/16/16 10:01 Sarah Rods Not Reportable 11/16/16 10:01 Platelet Estimate Appears normal 11/16/16 10:01 Clumped Platelets Not Reportable 11/16/16 10:01 Plt Clumps, EDTA Not Reportable 11/16/16 10:01 Large Platelets Not Reportable 11/16/16 10:01 Giant Platelets Not Reportable 11/16/16 10:01 Platelet Satelliting Not Reportable 11/16/16 10:01 Plt Morphology Comment Not Reportable 11/16/16 10:01 RBC Morphology Not Reportable 11/16/16 10:01 Dimorphic RBCs Not Reportable 11/16/16 10:01 Polychromasia Not Reportable 11/16/16 10:01 Hypochromasia 1+ 11/16/16 10:01 Poikilocytosis Not Reportable 11/16/16 10:01 Anisocytosis 1+ 11/16/16 10:01 Microcytosis 1+ 11/16/16 10:01 Macrocytosis Not Reportable 11/16/16 10:01 Spherocytes Not Reportable 11/16/16 10:01 Pappenheimer Bodies Not Reportable 11/16/16 10:01 Sickle Cells Not Reportable 11/16/16 10:01 Target Cells Not Reportable 11/16/16 10:01 Tear Drop Cells Not Reportable 11/16/16 10:01 Ovalocytes Few 11/16/16 10:01 Helmet Cells Not Reportable 11/16/16 10:01 [place] Bodies Not Reportable 11/16/16 10:01 Martha Rings Not Reportable 11/16/16 10:01 [place] Cells Not Reportable 11/16/16 10:01 Bite Cells Not Reportable 11/16/16 10:01 Crenated Cell Not Reportable 11/16/16 10:01 Elliptocytes Not Reportable 11/16/16 10:01 Acanthocytes (Spur) Not Reportable 11/16/16 10:01 Rouleaux Not Reportable 11/16/16 10:01 Hemoglobin C Crystals Not Reportable 11/16/16 10:01 Schistocytes Not Reportable 11/16/16 10:01 Malaria parasites Not Reportable 11/16/16 10:01 Jerald Bodies Not Reportable 11/16/16 10:01 Hem Pathologist Commnt No 11/16/16 10:01 Sodium 139 mmol/L (137-145) 11/17/16 04:00 Potassium 4.2 mmol/L (3.6-5.0) 11/17/16 04:00 Chloride 96.9 mmol/L (98-107) L 11/17/16 04:00 Carbon Dioxide 30 mmol/L (22-30) 11/17/16 04:00 Anion Gap 16 mmol/L 11/17/16 04:00 BUN 58 mg/dL (7-17) H 11/17/16 04:00 Creatinine 5.6 mg/dL (0.7-1.2) H 11/17/16 04:00 Estimated GFR 10 ml/min 11/17/16 04:00 BUN/Creatinine Ratio 10.35 % 11/17/16 04:00 Glucose 191 mg/dL (65-100) H 11/17/16 04:00 POC Glucose 115 (70-105) H 11/16/16 22:06 Calcium 7.5 mg/dL (8.4-10.2) L 11/17/16 04:00 Total Bilirubin 0.3 mg/dL (0.1-1.2) 11/16/16 10:01 AST 8 units/L (5-40) 11/16/16 10:01 ALT < 5 units/L (7-56) L 11/16/16 10:01 Alkaline Phosphatase 84 units/L (35-129) 11/16/16 10:01 Total Protein 6.7 g/dL (6.3-8.2) 11/16/16 10:01 Albumin 3.3 g/dL (3.9-5) L 11/16/16 10:01 Albumin/Globulin Ratio 1.0 % 11/16/16 10:01 Lipase 57 units/L (13-60) 11/16/16 10:01 Blood Type B POSITIVE 11/16/16 13:45 Antibody Screen Positive 11/16/16 13:45 Antibody Identification Anti-E 11/16/16 13:45 Crossmatch See Detail 11/16/16 13:45
[2016-11-17] MEDS: CARDENE DRIP 40 MG/200 ML 40 MG/200 ML BAG IV SCH (16:30)
[2016-11-17 16:36] LABS: Hemoglobin 5.4 gm/dl (10.1-14.3)
[2016-11-17 17:37] LABS: Basophils % (Auto) 0.9 % (0.0-1.8); Eosinophils % (Auto) 0.5 % (0.0-4.3); Hemoglobin 6.9 gm/dl (10.1-14.3); Mean Corpuscular HGB Conc 35 % (30-34); Mean Corpuscular Hemoglobin 30 pg (28-32); Platelet Count 269 K/mm3 (140-440); Red Blood Count 2.27 M/mm3 (3.65-5.03); Red Cell Distribution Width 16.3 % (13.2-15.2); White Blood Count 8.7 K/mm3 (4.5-11.0)
[2016-11-17 17:43] LABS: Hematocrit 19.9 % (30.3-42.9)
[2016-11-17 17:44] LABS: Mean Corpuscular Volume 88 fl (79-97)
[2016-11-17 17:46] LABS: INR 1.12 (0.87-1.13)
[2016-11-17 17:47] LABS: Partial Thromboplastin Time 20.4 Sec. (24.2-36.6)
[2016-11-17] MEDS ORDERED: NACL 0.9% 1000 ML 100 ML IV PRN (18:26)
[2016-11-17] MEDS ORDERED: NACL 0.9% 500 ML 500 ML IV SCH (18:38)
[2016-11-17] MEDS: ATIVAN IV PRN (23:16)
[2016-11-18] MEDS: PROTONIX 80 MG in NACL 0.9% 100 ML IV SCH ×2 (00:27→13:55)
[2016-11-18] MEDS: NORMODYNE IV PRN ×3 (01:37→20:28)
[2016-11-18] MEDS: DILAUDID IV PRN ×5 (02:50→23:25)
[2016-11-18] MEDS: ZOFRAN IV PRN ×4 (02:50→18:15)
[2016-11-18] MEDS: BENADRYL IV PRN ×3 (02:51→20:23)
[2016-11-18] MEDS: APRESOLINE IV PRN ×2 (04:18→18:16)
[2016-11-18] MEDS: CARDENE DRIP 40 MG/200 ML 40 MG/200 ML BAG IV SCH (04:23)
[2016-11-18] MEDS: ATIVAN IV PRN ×4 (04:25→20:23)
[2016-11-18 05:25] LABS: Basophils % (Auto) 0.8 % (0.0-1.8); Eosinophils % (Auto) 0.9 % (0.0-4.3); Hematocrit 21.5 % (30.3-42.9); Hemoglobin 7.4 gm/dl (10.1-14.3); Mean Corpuscular HGB Conc 35 % (30-34); Mean Corpuscular Hemoglobin 30 pg (28-32); Mean Corpuscular Volume 87 fl (79-97); Platelet Count 239 K/mm3 (140-440); Red Blood Count 2.48 M/mm3 (3.65-5.03); Red Cell Distribution Width 15.5 % (13.2-15.2); White Blood Count 7.3 K/mm3 (4.5-11.0)
[2016-11-18 05:52] LABS: BUN/Creatinine Ratio 9.74; Calcium 8.1 mg/dL (8.4-10.2); Chloride 96.1 mmol/L (98-107); Potassium 3.9 mmol/L (3.6-5.0)
[2016-11-18] MEDS ORDERED: XYLOCAINE 1%/ EPI 1:100,000 INFILTRATI ONE (10:32)
[2016-11-18] MEDS ORDERED: HEPARIN/NS 5000 UNIT/500ML(CATH LAB) 1,000 ML IR ONE (10:32)
[2016-11-18] MEDS ORDERED: VERSED ONE (10:32)
[2016-11-18] MEDS ORDERED: VANCOMYCIN/NS 1 GM/250 ML 1 GM/250 ML BAG IV ONE (10:33)
--- NOTE | 2016-11-18 11:03 | Progress Note ---
Assessment and Plan Assessment and plan: 1. Acute GI hemorrhage most likely upper GI from peptic ulcer disease with anemia requiring transfusion-H/H improved after blood transfusion; f/u GI for further recommendations- for EGD today; cont Protonix drip, npo;monitor H/H 2. Insulin-dependent diabetes mellitus-cotn sliding scale 3. DVT prophylaxis: SCDs only due to GI bleed 5. ESRD on HD- f/u renal for HD; monitor lytes 6. AVF bleeding- f/u vascular for further manx 7. Mental disorder-? MR- psyche consult CCT exclusive of all other billable procedures 31 minutes For possible transfer to floor psot EGD depending on the finding History Interval history: f/u GIB; severe anemia Recently seen at the bedside, EGD for today; had HD yesterday with bleeding from the AVF; was transfused additional 1 unit PRBC last night; also started on nicardipine gtt yesterday for hypertensive urgency NO complaints today; no vomitting Hospitalist Physical - Constitutional Vitals: Temp Pulse Resp BP Pulse Ox 97.6 F 100 H 11 L 163/97 100 11/18/16 08:00 11/18/16 06:00 11/18/16 06:00 11/18/16 06:00 11/18/16 06:00 General appearance: Present: no acute distress - EENT Eyes: Present: PERRL, EOM intact. Absent: scleral icterus, conjunctival injection ENT: hearing intact, clear oral mucosa, no oropharyngeal erythema, no poor dentition - Neck Neck: Present: supple, normal ROM. Absent: enlarged thyroid, masses or JVD - Respiratory Respiratory effort: normal Respiratory: bilateral: diminished, negative: rales, rhonchi, wheezing - Cardiovascular Rhythm: regular Heart Sounds: Present: S1 & S2. Absent: gallop - Extremities Extremities: no ischemia, pulses intact, pulses symmetrical Peripheral Pulses: within normal limits - Abdominal General gastrointestinal: soft, non-tender, non-distended, normal bowel sounds - Integumentary Integumentary: Present: clear - Psychiatric Psychiatric: appropriate mood/affect, intact judgment & insight, cooperative - Neurologic Neurologic: CNII-XII intact, moves all extremities Results - Labs CBC & Chem 7: 11/18/16 04:30 11/18/16 04:30 Labs: Laboratory Last Values WBC 7.3 K/mm3 (4.5-11.0) 11/18/16 04:30 RBC 2.48 M/mm3 (3.65-5.03) L 11/18/16 04:30 Hgb 7.4 gm/dl (10.1-14.3) L 11/18/16 04:30 Hct 21.5 % (30.3-42.9) L 11/18/16 04:30 MCV 87 fl (79-97) 11/18/16 04:30 MCH 30 pg (28-32) 11/18/16 04:30 MCHC 35 % (30-34) H 11/18/16 04:30 RDW 15.5 % (13.2-15.2) H 11/18/16 04:30 Plt Count 239 K/mm3 (140-440) 11/18/16 04:30 Lymph % (Auto) 11.2 % (13.4-35.0) L 11/18/16 04:30 [place] % (Auto) 5.8 % (0.0-7.3) 11/18/16 04:30 Eos % (Auto) 0.9 % (0.0-4.3) 11/18/16 04:30 Baso % (Auto) 0.8 % (0.0-1.8) 11/18/16 04:30 Lymph # 0.8 K/mm3 (1.2-5.4) L 11/18/16 04:30 [place] # 0.4 K/mm3 (0.0-0.8) 11/18/16 04:30 Eos # 0.1 K/mm3 (0.0-0.4) 11/18/16 04:30 Baso # 0.1 K/mm3 (0.0-0.1) 11/18/16 04:30 Add Manual Diff Complete 11/16/16 10:01 Total Counted 100 11/16/16 10:01 Seg Neutrophils % 81.3 % (40.0-70.0) H 11/18/16 04:30 Seg Neuts % (Manual) 97.0 % (40.0-70.0) H 11/16/16 10:01 Band Neutrophils % 0 % 11/16/16 10:01 Lymphocytes % (Manual) 2.0 % (13.4-35.0) L 11/16/16 10:01 Reactive Lymphs % (Man) 0 % 11/16/16 10:01 Monocytes % (Manual) 1.0 % (0.0-7.3) 11/16/16 10:01 Eosinophils % (Manual) 0 % (0.0-4.3) 11/16/16 10:01 Basophils % (Manual) 0 % (0.0-1.8) 11/16/16 10:01 Metamyelocytes % 0 % 11/16/16 10:01 Myelocytes % 0 % 11/16/16 10:01 Promyelocytes % 0 % 11/16/16 10:01 Blast Cells % 0 % 11/16/16 10:01 Nucleated RBC % Not Reportable 11/16/16 10:01 Seg Neutrophils # 5.9 K/mm3 (1.8-7.7) 11/18/16 04:30 Seg Neutrophils # Man 9.1 K/mm3 (1.8-7.7) H 11/16/16 10:01 Band Neutrophils # 0.0 K/mm3 11/16/16 10:01 Lymphocytes # (Manual) 0.2 K/mm3 (1.2-5.4) L 11/16/16 10:01 Abs React Lymphs (Man) 0.0 K/mm3 11/16/16 10:01 Monocytes # (Manual) 0.1 K/mm3 (0.0-0.8) 11/16/16 10:01 Eosinophils # (Manual) 0.0 K/mm3 (0.0-0.4) 11/16/16 10:01 Basophils # (Manual) 0.0 K/mm3 (0.0-0.1) 11/16/16 10:01 Metamyelocytes # 0.0 K/mm3 11/16/16 10:01 Myelocytes # 0.0 K/mm3 11/16/16 10:01 Promyelocytes # 0.0 K/mm3 11/16/16 10:01 Blast Cells # 0.0 K/mm3 11/16/16 10:01 WBC Morphology Not Reportable 11/16/16 10:01 Hypersegmented Neuts Not Reportable 11/16/16 10:01 Hyposegmented Neuts Not Reportable 11/16/16 10:01 Hypogranular Neuts Not Reportable 11/16/16 10:01 Smudge Cells Not Reportable 11/16/16 10:01 Toxic Granulation Not Reportable 11/16/16 10:01 Toxic Vacuolation Not Reportable 11/16/16 10:01 Dohle Bodies Not Reportable 11/16/16 10:01 Pelger-Huet Anomaly Not Reportable 11/16/16 10:01 Sarah Rods Not Reportable 11/16/16 10:01 Platelet Estimate Appears normal 11/16/16 10:01 Clumped Platelets Not Reportable 11/16/16 10:01 Plt Clumps, EDTA Not Reportable 11/16/16 10:01 Large Platelets Not Reportable 11/16/16 10:01 Giant Platelets Not Reportable 11/16/16 10:01 Platelet Satelliting Not Reportable 11/16/16 10:01 Plt Morphology Comment Not Reportable 11/16/16 10:01 RBC Morphology Not Reportable 11/16/16 10:01 Dimorphic RBCs Not Reportable 11/16/16 10:01 Polychromasia Not Reportable 11/16/16 10:01 Hypochromasia 1+ 11/16/16 10:01 Poikilocytosis Not Reportable 11/16/16 10:01 Anisocytosis 1+ 11/16/16 10:01 Microcytosis 1+ 11/16/16 10:01 Macrocytosis Not Reportable 11/16/16 10:01 Spherocytes Not Reportable 11/16/16 10:01 Pappenheimer Bodies Not Reportable 11/16/16 10:01 Sickle Cells Not Reportable 11/16/16 10:01 Target Cells Not Reportable 11/16/16 10:01 Tear Drop Cells Not Reportable 11/16/16 10:01 Ovalocytes Few 11/16/16 10:01 Helmet Cells Not Reportable 11/16/16 10:01 Mariscal-Pilger Bodies Not Reportable 11/16/16 10:01 [place] Rings Not Reportable 11/16/16 10:01 [place] Cells Not Reportable 11/16/16 10:01 Bite Cells Not Reportable 11/16/16 10:01 Crenated Cell Not Reportable 11/16/16 10:01 Elliptocytes Not Reportable 11/16/16 10:01 Acanthocytes (Spur) Not Reportable 11/16/16 10:01 Rouleaux Not Reportable 11/16/16 10:01 Hemoglobin C Crystals Not Reportable 11/16/16 10:01 Schistocytes Not Reportable 11/16/16 10:01 Malaria parasites Not Reportable 11/16/16 10:01 Jerald Bodies Not Reportable 11/16/16 10:01 Hem Pathologist Commnt No 11/16/16 10:01 PT 14.3 Sec. (12.2-14.9) 11/17/16 17:30 INR 1.12 (0.87-1.13) 11/17/16 17:30 APTT 20.4 Sec. (24.2-36.6) L 11/17/16 17:30 Sodium 138 mmol/L (137-145) 11/18/16 04:30 Potassium 3.9 mmol/L (3.6-5.0) 11/18/16 04:30 Chloride 96.1 mmol/L (98-107) L 11/18/16 04:30 Carbon Dioxide 29 mmol/L (22-30) 11/18/16 04:30 Anion Gap 17 mmol/L 11/18/16 04:30 BUN 38 mg/dL (7-17) H 11/18/16 04:30 Creatinine 3.9 mg/dL (0.7-1.2) H 11/18/16 04:30 Estimated GFR 16 ml/min 11/18/16 04:30 BUN/Creatinine Ratio 9.74 % 11/18/16 04:30 Glucose 163 mg/dL (65-100) H 11/18/16 04:30 POC Glucose 146 (70-105) H 11/18/16 07:50 Calcium 8.1 mg/dL (8.4-10.2) L 11/18/16 04:30 Total Bilirubin 0.3 mg/dL (0.1-1.2) 11/16/16 10:01 AST 8 units/L (5-40) 11/16/16 10:01 ALT < 5 units/L (7-56) L 11/16/16 10:01 Alkaline Phosphatase 84 units/L (35-129) 11/16/16 10:01 Total Protein 6.7 g/dL (6.3-8.2) 11/16/16 10:01 Albumin 3.3 g/dL (3.9-5) L 11/16/16 10:01 Albumin/Globulin Ratio 1.0 % 11/16/16 10:01 Lipase 57 units/L (13-60) 11/16/16 10:01 Blood Type B POSITIVE 11/16/16 13:45 Antibody Screen Positive 11/16/16 13:45 Antibody Identification Anti-E 11/16/16 13:45 Crossmatch See Detail 11/16/16 13:45
[2016-11-18] MEDS: SUBLIMAZE ONE ×2 (11:10→11:29)
[2016-11-18] MEDS: NORMODYNE IV ONE ×4 (11:21→11:58)
[2016-11-18] MEDS: APRESOLINE ONE ×2 (12:01→12:08)
[2016-11-18] MEDS: DDAVP 20 MCG in NACL 0.9% 50 ML IV ONE ×2 (12:40→13:19)
--- NOTE | 2016-11-18 12:48 | Operative Report ---
Operative Report Operative Report: EXAM: 1. Ultrasound-guided cannulation of the right common femoral artery 2. SMA artery selection and angiogram 3. Celiac artery selection 4. Common hepatic artery selection and angiogram 5. Gastroduodenal artery selection and angiogram 6. Right gastroepiploic artery selection and angiogram 7. Coil embolization of the gastroduodenal artery with a 6 mm x 20 mm coil, 6 mm x 10 mm coil, 6 mm x 10 mm coil, and 5 mm x 15 mm coil 8. Postembolization angiogram from the common hepatic artery 9. Right common femoral artery angiogram 10. Closure of the right common femoral artery arteriotomy with a 6 Fr Angio- Seal device DATE: 11/18/16 TAKE OFF MAN: ALIX RIDER MD INDICATION: Large distal antral gastric ulcer with bleeding vessels seen at outside hospital 2 weeks ago with recurrent hematemesis with request for upper GI bleeding coil embolization given the refractory nature of the bleeding gastric ulcer. MEDICATIONS: Please see nursing report for full details. The patient was monitored with continuous cardiopulmonary monitoring during the procedure and moderate sedation was administered. DEVICES: 5 mm x 15 cm interlock x 1 6 mm x 10 cm interlock x 2 6 mm x 20 cm interlock x 1 PROCEDURE: The risks, benefits, and alternatives were discussed with the patient and her mother. The patient's mother provided consent for the patient and written informed consent was obtained. The patient was transported from the intensive care unit to the angiography suite in stable condition. The patient's groins were prepped and draped in a sterile fashion. Under direct ultrasound guidance, the right common femoral artery was evaluated which was determined to be patent. The area was anesthetized, and a 21-gauge micropuncture needle was inserted into the artery. 0.018 inch wire was advanced through the needle into the aorta and the needle was exchanged for transitional dilator. A Mars wire was advanced through the transitional dilator after the wire and inner dilator were removed. 5 Turkmen sheath was advanced over the Bentson wire. I originally tried to select the left superficial femoral artery with a Bentsen wire and an Omni flush catheter, but could only select the left internal iliac artery. Then the Glidewire advantage wire was used to select the left superficial femoral artery. The catheter was exchanged for a Gray 1 catheter which was formed over the iliac bifurcation. The Gray 1 glide catheter was used to select the superior mesenteric artery and digital subtraction angiography was performed. The superior mesenteric artery demonstrated no evidence of extravasation or pseudoaneurysm with attention specifically directed towards the area overlying the duodenum. Gray 1 catheter was used to select the celiac artery. The catheter was then used to select the common hepatic artery. Digital subtraction angiography was performed demonstrating no evidence of pseudoaneurysm or extravasation visualized. There is relatively normal celiac artery anatomy. The gastroduodenal artery is visualized and the superior pancraticoduodenal and right gastroepiploic artery are noted. No extravasation or pseudoaneurysm. The renegade STC and choice PT floppy wire were used to select the right gastroduodenal artery and digital subtraction angiography was performed which demonstrated no evidence of extravasation or pseudoaneurysm. Then, the right gastroepiploic artery was selected and digital subtraction angiography was performed which demonstrated no evidence of extravasation or pseudoaneurysm. The microcatheter was then retracted into the gastroduodenal artery. Multiple coils listed above were used to occlude the gastroduodenal artery. The microcatheter was then removed. Digital subtraction angiography was performed through the base catheter multiple times confirming position of the coil pack in the gastroduodenal artery. Final angiogram demonstrates preocclusive flow in the gastroduodenal artery. Right common femoral artery angiography was performed demonstrating the puncture was above the bifurcation, and below the inferior epigastric artery. The right external iliac artery, right common femoral artery, and the proximal profunda femoral artery and superficial femoral artery are patent. 6Fr angio- seal device was then deployed over the wire and used to successfully close the right common femoral artery arteriotomy. Mild manual compression was then applied ensuring hemostasis. The patient tolerated the procedure without incident. Patient was transported back to the intensive care unit without issue. FINDINGS: Please see the procedure report above IMPRESSION: 1. No evidence of extravasation or pseudoaneurysm on the multiple angiograms performed. 2. Empiric gastroduodenal artery coil embolization was performed without complication. 2. Successful closure of the right common femoral artery arteriotomy with a 6 Fr Angio-Seal device.
--- NOTE | 2016-11-18 14:03 | Gastroenterology Progress Note ---
Assessment and Plan 1. CGE 2. Severe Anemia 3. Gastric Ulcers -S/P IR with coil embolization of gastroduodenal artery. (Pt failed endoscopic therapy) -H/H stable. -NPO for now. -Continue to monitor H/H, currently stable (post transfusion) -Consider EGD during this hospitalization -Continue PPI through today, then transition to PPI BID IV in AM. Subjective Date of service: 11/18/16 Principal diagnosis: UGI bleeding Interval history: Patient just returned from IR, drowsy. Objective - Constitutional Vitals: Temp Pulse Resp BP Pulse Ox 98.2 F 97 H 16 178/85 100 11/18/16 13:17 11/18/16 10:15 11/18/16 10:15 11/18/16 10:15 11/18/16 10:00 General appearance: no acute distress, other (drowsy) - EENT ENT: hearing intact - Cardiovascular Rhythm: regular Heart Sounds: Present: S1 & S2 - Gastrointestinal General gastrointestinal: Present: soft, non-distended, hypoactive bowel sounds - Integumentary Integumentary: Present: warm, dry - Neurologic Neurological: other (drowsy) - Labs CBC & Chem 7: 11/18/16 04:30 11/18/16 04:30 Labs: Laboratory Results - last 24 hr 11/16/16 11/17/16 11/17/16 13:45 04:00 06:29 WBC 10.2 RBC 1.91 L Hgb 5.4 L* Hct 16.0 L* MCV 84 MCH 28 MCHC 34 RDW 15.3 H Plt Count 302 Lymph % (Auto) [place] % (Auto) Eos % (Auto) Baso % (Auto) Lymph # [place] # Eos # Baso # Seg Neutrophils % Seg Neutrophils # PT INR APTT Sodium 139 Potassium 4.2 Chloride 96.9 L Carbon Dioxide 30 Anion Gap 16 BUN 58 H Creatinine 5.6 H Estimated GFR 10 BUN/Creatinine Ratio 10.35 Glucose 191 H POC Glucose Calcium 7.5 L Blood Type B POSITIVE Antibody Screen Positive Antibody Identification Anti-E Crossmatch See Detail 11/17/16 11/17/16 11/17/16 08:30 11:37 16:42 WBC RBC Hgb Hct MCV MCH MCHC RDW Plt Count Lymph % (Auto) [place] % (Auto) Eos % (Auto) Baso % (Auto) Lymph # [place] # Eos # Baso # Seg Neutrophils % Seg Neutrophils # PT INR APTT Sodium Potassium Chloride Carbon Dioxide Anion Gap BUN Creatinine Estimated GFR BUN/Creatinine Ratio Glucose POC Glucose 151 H 141 H 95 Calcium Blood Type Antibody Screen Antibody Identification Crossmatch 11/17/16 11/17/16 11/17/16 17:30 17:30 23:20 WBC 8.7 RBC 2.27 L Hgb 6.9 L Hct 19.9 L* MCV 88 D MCH 30 MCHC 35 H RDW 16.3 H Plt Count 269 Lymph % (Auto) 14.4 [place] % (Auto) 8.1 H Eos % (Auto) 0.5 Baso % (Auto) 0.9 Lymph # 1.2 [place] # 0.7 Eos # 0.0 Baso # 0.1 Seg Neutrophils % 76.1 H Seg Neutrophils # 6.6 PT 14.3 INR 1.12 APTT 20.4 L Sodium Potassium Chloride Carbon Dioxide Anion Gap BUN Creatinine Estimated GFR BUN/Creatinine Ratio Glucose POC Glucose 156 H Calcium Blood Type Antibody Screen Antibody Identification Crossmatch 11/18/16 11/18/16 11/18/16 04:30 04:30 07:50 WBC 7.3 RBC 2.48 L Hgb 7.4 L Hct 21.5 L MCV 87 MCH 30 MCHC 35 H RDW 15.5 H Plt Count 239 Lymph % (Auto) 11.2 L [place] % (Auto) 5.8 Eos % (Auto) 0.9 Baso % (Auto) 0.8 Lymph # 0.8 L [place] # 0.4 Eos # 0.1 Baso # 0.1 Seg Neutrophils % 81.3 H Seg Neutrophils # 5.9 PT INR APTT Sodium 138 Potassium 3.9 Chloride 96.1 L Carbon Dioxide 29 Anion Gap 17 BUN 38 H Creatinine 3.9 H Estimated GFR 16 BUN/Creatinine Ratio 9.74 Glucose 163 H POC Glucose 146 H Calcium 8.1 L Blood Type Antibody Screen Antibody Identification Crossmatch 11/18/16 13:07 WBC RBC Hgb Hct MCV MCH MCHC RDW Plt Count Lymph % (Auto) [place] % (Auto) Eos % (Auto) Baso % (Auto) Lymph # [place] # Eos # Baso # Seg Neutrophils % Seg Neutrophils # PT INR APTT Sodium Potassium Chloride Carbon Dioxide Anion Gap BUN Creatinine Estimated GFR BUN/Creatinine Ratio Glucose POC Glucose 127 H Calcium Blood Type Antibody Screen Antibody Identification Crossmatch
--- NOTE | 2016-11-18 14:05 | Progress Note ---
Assessment and Plan 1. ESRD on HD 2. Malignant Hypertension 3. Pulmonary edema 4. Gastroparesis exacerbation 5. Nausea/vomiting 2/2 #4 6. Abdominal pain 2/2 #4 7. Severe pulmonary HTN on Sildinafile therapy 8. Anemia of ESRD and acute GI blood loss 9. GI bleeding 2/2 Large distal antral gastric ulcer with bleeding vessels s/ p emolization of bleeding A. 10. DM II with ESRD 11. Prolonged bleeding from AVF likely out flow stenosis Plan: -Next HD on Tuesday Start Cardene drip, current BP over 200 and she is unable to take oral antihypertensives 2/2 GI bleeding -Discussed with Dr Rosales on 11/17 regarding prolonged bleeding from AVF. Pt scheduled for fistulogram -Epogen on dialysis -Will transfuse PRBCs if Hgb <7 -Continue Cardene drip till oral meds can be resumed. Pt remained NPO 2/2 GI bleeding -Pain control Subjective Date of service: 11/18/16 Principal diagnosis: UGI bleeding Interval history: S/p Coil embolization of the gastroduodenal artery Objective - Exam Narrative Exam: General appearance: well-developed, well-nourished, appears stated age, in no distress EENT: PERRL, mucous membranes moist, pale conjectiva Neck: Present: neck supple, trachea midline. Absent: JVD/HJR, Masses Respiratory: Decreased Breath Sounds, no wheezing Heart: regular, normal heart rate, S1S2, no murmurs Gastrointestinal: Present: normal. Absent: tenderness, distended, masses, guarding Integumentary: no rash, warm and dry Neurologic: no focal deficit, alert and oriented x3, gait normal, strength 5/5 Musculoskeletal: Absent: deformities, joint swelling Psychiatric: mood/affect appropriate, cooperative - Vital Signs Vital signs: Vital Signs - 12hr 11/18/16 11/18/16 11/18/16 02:15 02:30 02:45 Temperature Pulse Rate 87 93 H 102 H Pulse Rate [ From Monitor] Respiratory 15 18 14 Rate Respiratory Rate [Upper Anterior Abdomen] Blood Pressure 171/89 171/89 173/92 O2 Sat by Pulse 100 100 99 Oximetry 11/18/16 11/18/16 11/18/16 03:00 03:15 03:31 Temperature Pulse Rate 104 H 106 H 107 H Pulse Rate [ From Monitor] Respiratory 15 23 18 Rate Respiratory Rate [Upper Anterior Abdomen] Blood Pressure 208/104 181/91 192/99 O2 Sat by Pulse 100 100 100 Oximetry 11/18/16 11/18/16 11/18/16 03:45 04:00 04:15 Temperature Pulse Rate 110 H 109 H 118 H Pulse Rate [ From Monitor] Respiratory 18 24 14 Rate Respiratory Rate [Upper Anterior Abdomen] Blood Pressure 192/99 180/98 180/98 O2 Sat by Pulse 99 100 99 Oximetry 11/18/16 11/18/16 11/18/16 04:30 04:45 05:01 Temperature Pulse Rate 113 H 115 H 118 H Pulse Rate [ 113 H From Monitor] Respiratory 20 15 20 Rate Respiratory Rate [Upper Anterior Abdomen] Blood Pressure 183/93 164/91 164/91 O2 Sat by Pulse 100 100 100 Oximetry 11/18/16 11/18/16 11/18/16 05:15 05:31 05:45 Temperature Pulse Rate 119 H 107 H 97 H Pulse Rate [ From Monitor] Respiratory 16 23 20 Rate Respiratory Rate [Upper Anterior Abdomen] Blood Pressure 161/88 149/77 153/87 O2 Sat by Pulse 100 100 100 Oximetry 11/18/16 11/18/16 11/18/16 06:00 06:15 06:30 Temperature 97.6 F Pulse Rate 100 H 103 H 102 H Pulse Rate [ From Monitor] Respiratory 11 L 11 L 18 Rate Respiratory Rate [Upper Anterior Abdomen] Blood Pressure 163/97 163/97 180/92 O2 Sat by Pulse 100 100 100 Oximetry 11/18/16 11/18/16 11/18/16 06:45 07:00 07:15 Temperature Pulse Rate 99 H 100 H 101 H Pulse Rate [ From Monitor] Respiratory 15 17 13 Rate Respiratory Rate [Upper Anterior Abdomen] Blood Pressure 171/84 169/85 180/95 O2 Sat by Pulse 100 100 100 Oximetry 11/18/16 11/18/16 11/18/16 07:30 07:45 08:00 Temperature 97.6 F Pulse Rate 103 H 107 H 104 H Pulse Rate [ From Monitor] Respiratory 16 12 19 Rate Respiratory Rate [Upper Anterior Abdomen] Blood Pressure 180/94 202/107 187/96 O2 Sat by Pulse 100 100 100 Oximetry 11/18/16 11/18/16 11/18/16 08:15 08:30 08:45 Temperature Pulse Rate 99 H 95 H 100 H Pulse Rate [ From Monitor] Respiratory 15 12 16 Rate Respiratory Rate [Upper Anterior Abdomen] Blood Pressure 174/86 178/83 178/83 O2 Sat by Pulse Oximetry 11/18/16 11/18/16 11/18/16 09:00 09:15 09:30 Temperature Pulse Rate 93 H 99 H 95 H Pulse Rate [ From Monitor] Respiratory 15 17 16 Rate Respiratory Rate [Upper Anterior Abdomen] Blood Pressure 168/83 168/83 173/88 O2 Sat by Pulse Oximetry 11/18/16 11/18/16 11/18/16 09:45 10:00 10:15 Temperature Pulse Rate 100 H 96 H 97 H Pulse Rate [ From Monitor] Respiratory 22 19 16 Rate Respiratory 18 Rate [Upper Anterior Abdomen] Blood Pressure 173/88 178/85 178/85 O2 Sat by Pulse 100 Oximetry 11/18/16 13:17 Temperature 98.2 F Pulse Rate Pulse Rate [ From Monitor] Respiratory Rate Respiratory Rate [Upper Anterior Abdomen] Blood Pressure O2 Sat by Pulse Oximetry - Lab 11/18/16 04:30 11/18/16 04:30 Most recent lab results Calcium 8.1 mg/dL (8.4-10.2) L 11/18/16 04:30
--- NOTE | 2016-11-18 15:55 | Event Note ---
Date: 11/18/16 Patient will need fistulogram and fistuloplasty. Will perform tomorrow AM. Will work around GI schedule in case they wish to perform endoscopy.
[2016-11-18] MEDS ORDERED: CATAPRES-TTS PATCH TD SCH (19:00)
[2016-11-19] MEDS: ATIVAN IV PRN ×3 (01:59→20:13)
[2016-11-19] MEDS: DILAUDID IV PRN ×6 (02:04→20:13)
[2016-11-19] MEDS: BENADRYL IV PRN ×3 (02:05→16:16)
[2016-11-19] MEDS: APRESOLINE IV PRN ×3 (02:05→12:51)
[2016-11-19] MEDS: PROTONIX 80 MG in NACL 0.9% 100 ML IV SCH (05:01)
--- NOTE | 2016-11-19 07:41 | Vascular Lab Report ---
MISCELLANEOUS VESSEL IDENTIFICATION: COMMENTS ON THE SCAN: The right common femoral artery was identified and under real-time ultrasound guidance was cannulated. IMPRESSION: Successful ultrasound guided arterial cannulation.
[2016-11-19] MEDS: ZOFRAN IV PRN ×3 (08:35→20:18)
[2016-11-19 08:52] LABS: Hemoglobin 6.8 gm/dl (10.1-14.3); Mean Corpuscular HGB Conc 34 % (30-34); Mean Corpuscular Hemoglobin 30 pg (28-32); Mean Corpuscular Volume 87 fl (79-97); Platelet Count 226 K/mm3 (140-440); Red Blood Count 2.25 M/mm3 (3.65-5.03); White Blood Count 7.7 K/mm3 (4.5-11.0)
[2016-11-19 09:09] LABS: BUN/Creatinine Ratio 8.03; Potassium 4.3 mmol/L (3.6-5.0)
[2016-11-19 09:12] LABS: Hematocrit 19.6 % (30.3-42.9)
[2016-11-19] MEDS ORDERED: HEPARIN 10,000 UNITS/10 ML ONE (10:18)
[2016-11-19] MEDS ORDERED: HEPARIN/NS 5000 UNIT/500ML(CATH LAB) 1,000 ML IR ONE (10:18)
[2016-11-19] MEDS ORDERED: ANCEF/STERILE WATER 2 GM/20 ML 2 GM/20 ML SYRINGE IV ONE (10:19)
[2016-11-19] MEDS ORDERED: NACL 0.9% 500 ML 500 ML IV ONE ×3 (10:22→18:01)
[2016-11-19] MEDS ORDERED: XYLOCAINE 1%/ EPI 1:100,000 INFILTRATI ONE (10:26)
[2016-11-19] MEDS ORDERED: BENADRYL ONE (10:34)
--- NOTE | 2016-11-19 10:35 | Event Note ---
Date: 11/19/16 Patient was off the floor for vascular intervention on graft. No bleeding according to the nursing staff. H&H only slightly down from yesterday without transfusion. May need more blood with dialysis today. Plan for endoscopy next week.
[2016-11-19] MEDS: SUBLIMAZE ONE ×2 (10:39→11:26)
[2016-11-19] MEDS: VERSED ONE ×3 (10:53→11:37)
[2016-11-19] MEDS ORDERED: SUBLIMAZE ONE (11:46)
--- NOTE | 2016-11-19 12:29 | Operative Report ---
Operative Report Operative Report: EXAM: 1. Ultrasound guided access of the left arm AV brachial basilic fistula towards the venous outflow 2. Fistulogram and placement of a 7 Namibian sheath 3. Angioplasty of the peripheral portion of the subclavian vein with a 12 mm angioplasty balloon 4. Angioplasty of the distal and mid basilic vein with a 10 mm angioplasty balloon and a 12 mm angioplasty balloon at focal regions 5. Angioplasty of the proximal portion of the basilic vein with a 10 mm and 12 mm angioplasty balloon DATE: 11/19/16 SHOES HAND SEWER: ALIX RIDER MD INDICATION: End-stage renal disease with prolonged bleeding from right arm AV access MEDICATIONS: Please see nursing report for full details. DEVICES: 10 mm angioplasty balloon 12 mm angioplasty balloon PROCEDURE: The risks, benefits, and alternatives of the procedure were discussed and written informed consent was obtained. The patient was transported in stable condition to the angiography suite. The patient's right arm AV brachial basilic fistula was assessed by ultrasound and was patent. The patient was prepped and draped in a sterile fashion. Under ultrasound guidance, the right arm AV brachio-basilic fistula was accessed with a 21-gauge micropuncture needle. The area was anesthetized prior to access. 0.018 inch wire was advanced through the micropuncture needle into the fistula and then the needle was exchanged for a 5 Namibian transitional dilator. The inner dilator and wire were removed and a 0.035 inch wire was advanced through the venous outflow. The transitional dilator was exchanged for a 7 Namibian short sheath but this would not easily advance requiring predilatation with a 7 Namibian and 9 Namibian dilator before 7 Namibian sheath could be advanced over the wire. Fistulogram was performed of the venous outflow and central veins. Reflux into the arterial anastomosis was performed later with balloon insufflation. Digital subtraction angiography demonstrates that the mid and distal portion of the right brachio-basilic AV fistula had moderate to severe diffuse narrowing. There was a ringlike/weblike narrowing in the peripheral portion of the subclavian vein. The rest of the central veins were patent despite the right chest port. The perianastomotic portion of the AV fistula and the anastomosis were patent. The brachial artery proximal and distal to the anastomosis was patent. There was a moderate relative narrowing in the aneurysmal portion of the right arm AV fistula. Vertebral catheter was negotiated beyond the weblike narrowing at the peripheral portion of the subclavian vein. 0.035 inch Mars wire was passed into the IVC. 12 mm angioplasty balloon was used to perform angioplasty in the subclavian vein. 10 mm angioplasty balloon was used to perform angioplasty throughout the distal and mid basilic vein. Digital subtraction angiography was used to perform reflux angiography demonstrating a relative moderate narrowing in the midportion of the aneurysmal proximal basilic vein. 10 mm angioplasty balloon was used to angioplasty the area of relative narrowing. Digital subtraction angiography was performed demonstrating refractory moderate residual narrowing in the distal basilic vein requiring treatment with a 12 mm angioplasty balloon. Digital subtraction angiography afterwards demonstrated only mild residual narrowing of the distal basilic vein and resolution of the narrowing in the mid basilic vein and the subclavian vein. Reflux angiography was performed demonstrating the relative moderate narrowing in the midportion of the aneurysmal portion of the AV fistula. 12 mm angioplasty balloon was used to perform angioplasty in the midportion of the AV fistula. Reflux angiography demonstrates mild residual relative narrowing in the midportion of the aneurysmal proximal section of the AV fistula. I considered obtaining another access in order to better treat this region, but the patient was complaining of pain related to angioplasty and did not want to proceed further. The wire was removed and the site was closed with a 4-0 Vicryl suture. The sheath was then removed. Hemostasis was achieved with slight manual compression. The patient was transported from the angiography suite to the floor in stable condition. IMPRESSION: Successful fistulogram and venoplasty as descibed above with a 10 and 12 mm angioplasty balloon of the subclavian vein and the basilic vein of the AV fistula. Excellent thrill obtained after treatment.
--- NOTE | 2016-11-19 12:38 | Progress Note ---
Assessment and Plan 36 y/o with ESRD on HD, admitted with acute blood loss anemia, thought secondary to GI bleed, now with bleeding right arm fistula. 1. Transfuse again 2. Keep in ICU 3. Will speak to GI, may need to consider scope anyway given decline in hgb post embolization, unless this is common. 4. HD per renal, can give blood during then 5. Guarded prognosis CCT 31 minutes Subjective Date of service: 11/19/16 Principal diagnosis: UGI bleeding Interval history: Had embolization of gastric artery yesterday. Fistulogram today. Unfortunately HgB did drop to below seven with no overt evidence of bleed. Remainder is negative. Objective - Constitutional Vitals: Vital Signs - 12hr 11/19/16 11/19/16 11/19/16 00:46 01:00 01:16 Temperature Pulse Rate 107 H 107 H 107 H Pulse Rate [ Right Dorsalis Pedis] Respiratory 27 H 29 H 28 H Rate Respiratory Rate [Upper Anterior Abdomen] Blood Pressure 163/83 161/83 161/83 O2 Sat by Pulse 100 98 100 Oximetry 11/19/16 11/19/16 11/19/16 01:30 01:46 02:00 Temperature Pulse Rate 107 H 107 H 110 H Pulse Rate [ Right Dorsalis Pedis] Respiratory 27 H 29 H 11 L Rate Respiratory Rate [Upper Anterior Abdomen] Blood Pressure 165/80 165/80 170/84 O2 Sat by Pulse 98 100 99 Oximetry 11/19/16 11/19/16 11/19/16 02:16 02:30 02:46 Temperature Pulse Rate 107 H 106 H 101 H Pulse Rate [ Right Dorsalis Pedis] Respiratory 18 17 19 Rate Respiratory Rate [Upper Anterior Abdomen] Blood Pressure 172/88 167/86 167/86 O2 Sat by Pulse 100 99 100 Oximetry 11/19/16 11/19/16 11/19/16 03:00 03:15 03:30 Temperature Pulse Rate 102 H 103 H 104 H Pulse Rate [ Right Dorsalis Pedis] Respiratory 21 21 20 Rate Respiratory Rate [Upper Anterior Abdomen] Blood Pressure 167/86 161/88 167/86 O2 Sat by Pulse 100 100 98 Oximetry 11/19/16 11/19/16 11/19/16 03:45 04:00 04:15 Temperature 97.2 F L Pulse Rate 100 H 99 H 106 H Pulse Rate [ Right Dorsalis Pedis] Respiratory 20 19 15 Rate Respiratory Rate [Upper Anterior Abdomen] Blood Pressure 167/86 160/87 160/87 O2 Sat by Pulse 100 99 100 Oximetry 11/19/16 11/19/16 11/19/16 04:30 04:45 05:00 Temperature Pulse Rate 108 H 105 H 107 H Pulse Rate [ Right Dorsalis Pedis] Respiratory 18 16 17 Rate Respiratory Rate [Upper Anterior Abdomen] Blood Pressure 166/85 166/85 143/79 O2 Sat by Pulse 96 98 96 Oximetry 11/19/16 11/19/16 11/19/16 05:15 05:30 05:45 Temperature Pulse Rate 103 H 102 H 102 H Pulse Rate [ Right Dorsalis Pedis] Respiratory 18 17 17 Rate Respiratory Rate [Upper Anterior Abdomen] Blood Pressure 143/79 142/75 142/75 O2 Sat by Pulse 97 96 Oximetry 11/19/16 11/19/16 11/19/16 06:00 06:15 06:30 Temperature Pulse Rate 103 H 104 H 106 H Pulse Rate [ Right Dorsalis Pedis] Respiratory 17 18 17 Rate Respiratory Rate [Upper Anterior Abdomen] Blood Pressure 145/74 145/74 163/78 O2 Sat by Pulse 100 97 96 Oximetry 11/19/16 11/19/16 11/19/16 06:45 07:00 07:15 Temperature Pulse Rate 114 H 111 H 111 H Pulse Rate [ Right Dorsalis Pedis] Respiratory 16 14 30 H Rate Respiratory Rate [Upper Anterior Abdomen] Blood Pressure 163/78 149/79 149/79 O2 Sat by Pulse 100 96 100 Oximetry 11/19/16 11/19/16 11/19/16 07:30 07:45 08:00 Temperature 97.4 F L Pulse Rate 113 H 113 H 114 H Pulse Rate [ 114 H Right Dorsalis Pedis] Respiratory 23 22 21 Rate Respiratory Rate [Upper Anterior Abdomen] Blood Pressure 140/67 140/67 156/80 O2 Sat by Pulse 98 100 100 Oximetry 11/19/16 11/19/16 11/19/16 08:10 08:15 08:30 Temperature Pulse Rate 112 H 113 H Pulse Rate [ Right Dorsalis Pedis] Respiratory 20 28 H Rate Respiratory Rate [Upper Anterior Abdomen] Blood Pressure 156/80 156/78 O2 Sat by Pulse 100 100 98 Oximetry 11/19/16 11/19/16 11/19/16 08:45 09:00 09:15 Temperature Pulse Rate 112 H 110 H 107 H Pulse Rate [ Right Dorsalis Pedis] Respiratory 18 23 8 L Rate Respiratory Rate [Upper Anterior Abdomen] Blood Pressure 156/78 157/82 157/82 O2 Sat by Pulse 99 96 95 Oximetry 11/19/16 11/19/16 09:30 10:00 Temperature Pulse Rate 104 H 114 H Pulse Rate [ Right Dorsalis Pedis] Respiratory 20 Rate Respiratory 15 Rate [Upper Anterior Abdomen] Blood Pressure 144/77 O2 Sat by Pulse 94 Oximetry - Labs CBC & Chem 7: 11/19/16 08:28 11/19/16 08:30 Labs: Abnormal lab results 11/16/16 11/18/16 11/18/16 Range/Units 13:45 13:07 15:49 RBC (3.65-5.03) M/mm3 Hgb (10.1-14.3) gm/dl Hct (30.3-42.9) % RDW (13.2-15.2) % BUN (7-17) mg/dL Creatinine (0.7-1.2) mg/dL Glucose (65-100) mg/dL POC Glucose 127 H 135 H (70-105) Calcium (8.4-10.2) mg/dL Crossmatch See Detail 11/19/16 11/19/16 Range/Units 08:28 08:30 RBC 2.25 L (3.65-5.03) M/mm3 Hgb 6.8 L (10.1-14.3) gm/dl Hct 19.6 L* (30.3-42.9) % RDW 16.0 H (13.2-15.2) % BUN 53 H (7-17) mg/dL Creatinine 6.6 H D (0.7-1.2) mg/dL Glucose 134 H (65-100) mg/dL POC Glucose (70-105) Calcium 8.0 L (8.4-10.2) mg/dL Crossmatch
--- NOTE | 2016-11-19 13:16 | Progress Note ---
Assessment and Plan 1. ESRD on HD 2. Malignant Hypertension 3. Pulmonary edema 4. Gastroparesis exacerbation 5. Nausea/vomiting 2/2 #4 6. Abdominal pain 2/2 #4 7. Severe pulmonary HTN on Sildinafile therapy 8. Anemia of ESRD and acute GI blood loss 9. GI bleeding 2/2 Large distal antral gastric ulcer with bleeding vessels s/ p emolization of bleeding A. 10. DM II with ESRD 11. Prolonged bleeding from AVF 2/2 out flow stenosis Plan: -HD today, will give 2 more units of PRBCs on dialysis -Continue Cardene drip till oral meds can be resumed. -Discussed with Dr Rosales on 11/17 regarding prolonged bleeding from AVF. Fistulogram done today > s/p ballon angioplasty of the subclavian vein and the basilic vein of the AV fistula. -Epogen on dialysis -Continue to monitor H/H -Pain control Subjective Date of service: 11/19/16 Principal diagnosis: UGI bleeding Interval history: S/p fistulogram today Objective - Exam Narrative Exam: General appearance: well-developed, well-nourished, appears stated age, in no distress EENT: PERRL, mucous membranes moist, pale conjectiva Neck: Present: neck supple, trachea midline. Absent: JVD/HJR, Masses Respiratory: Decreased Breath Sounds, no wheezing Heart: regular, normal heart rate, S1S2, no murmurs Gastrointestinal: Present: normal. Absent: tenderness, distended, masses, guarding Integumentary: no rash, warm and dry Neurologic: no focal deficit, alert and oriented x3, gait normal, strength 5/5 Musculoskeletal: Absent: deformities, joint swelling Psychiatric: mood/affect appropriate, cooperative - Vital Signs Vital signs: Vital Signs - 12hr 11/19/16 11/19/16 11/19/16 01:30 01:46 02:00 Temperature Pulse Rate 107 H 107 H 110 H Pulse Rate [ Right Dorsalis Pedis] Respiratory 27 H 29 H 11 L Rate Respiratory Rate [Upper Anterior Abdomen] Blood Pressure 165/80 165/80 170/84 O2 Sat by Pulse 98 100 99 Oximetry 11/19/16 11/19/16 11/19/16 02:16 02:30 02:46 Temperature Pulse Rate 107 H 106 H 101 H Pulse Rate [ Right Dorsalis Pedis] Respiratory 18 17 19 Rate Respiratory Rate [Upper Anterior Abdomen] Blood Pressure 172/88 167/86 167/86 O2 Sat by Pulse 100 99 100 Oximetry 11/19/16 11/19/16 11/19/16 03:00 03:15 03:30 Temperature Pulse Rate 102 H 103 H 104 H Pulse Rate [ Right Dorsalis Pedis] Respiratory 21 21 20 Rate Respiratory Rate [Upper Anterior Abdomen] Blood Pressure 167/86 161/88 167/86 O2 Sat by Pulse 100 100 98 Oximetry 11/19/16 11/19/16 11/19/16 03:45 04:00 04:15 Temperature 97.2 F L Pulse Rate 100 H 99 H 106 H Pulse Rate [ Right Dorsalis Pedis] Respiratory 20 19 15 Rate Respiratory Rate [Upper Anterior Abdomen] Blood Pressure 167/86 160/87 160/87 O2 Sat by Pulse 100 99 100 Oximetry 11/19/16 11/19/16 11/19/16 04:30 04:45 05:00 Temperature Pulse Rate 108 H 105 H 107 H Pulse Rate [ Right Dorsalis Pedis] Respiratory 18 16 17 Rate Respiratory Rate [Upper Anterior Abdomen] Blood Pressure 166/85 166/85 143/79 O2 Sat by Pulse 96 98 96 Oximetry 11/19/16 11/19/16 11/19/16 05:15 05:30 05:45 Temperature Pulse Rate 103 H 102 H 102 H Pulse Rate [ Right Dorsalis Pedis] Respiratory 18 17 17 Rate Respiratory Rate [Upper Anterior Abdomen] Blood Pressure 143/79 142/75 142/75 O2 Sat by Pulse 97 96 Oximetry 11/19/16 11/19/16 11/19/16 06:00 06:15 06:30 Temperature Pulse Rate 103 H 104 H 106 H Pulse Rate [ Right Dorsalis Pedis] Respiratory 17 18 17 Rate Respiratory Rate [Upper Anterior Abdomen] Blood Pressure 145/74 145/74 163/78 O2 Sat by Pulse 100 97 96 Oximetry 11/19/16 11/19/16 11/19/16 06:45 07:00 07:15 Temperature Pulse Rate 114 H 111 H 111 H Pulse Rate [ Right Dorsalis Pedis] Respiratory 16 14 30 H Rate Respiratory Rate [Upper Anterior Abdomen] Blood Pressure 163/78 149/79 149/79 O2 Sat by Pulse 100 96 100 Oximetry 11/19/16 11/19/16 11/19/16 07:30 07:45 08:00 Temperature 97.4 F L Pulse Rate 113 H 113 H 114 H Pulse Rate [ 114 H Right Dorsalis Pedis] Respiratory 23 22 21 Rate Respiratory Rate [Upper Anterior Abdomen] Blood Pressure 140/67 140/67 156/80 O2 Sat by Pulse 98 100 100 Oximetry 11/19/16 11/19/16 11/19/16 08:10 08:15 08:30 Temperature Pulse Rate 112 H 113 H Pulse Rate [ Right Dorsalis Pedis] Respiratory 20 28 H Rate Respiratory Rate [Upper Anterior Abdomen] Blood Pressure 156/80 156/78 O2 Sat by Pulse 100 100 98 Oximetry 11/19/16 11/19/16 11/19/16 08:45 09:00 09:15 Temperature Pulse Rate 112 H 110 H 107 H Pulse Rate [ Right Dorsalis Pedis] Respiratory 18 23 8 L Rate Respiratory Rate [Upper Anterior Abdomen] Blood Pressure 156/78 157/82 157/82 O2 Sat by Pulse 99 96 95 Oximetry 11/19/16 11/19/16 11/19/16 09:30 10:00 12:49 Temperature Pulse Rate 104 H 114 H Pulse Rate [ Right Dorsalis Pedis] Respiratory 20 12 Rate Respiratory 15 Rate [Upper Anterior Abdomen] Blood Pressure 144/77 O2 Sat by Pulse 94 Oximetry - Lab 11/19/16 08:28 11/19/16 08:30 Most recent lab results Calcium 8.0 mg/dL (8.4-10.2) L 11/19/16 08:30
--- NOTE | 2016-11-19 15:31 | Progress Note ---
Assessment and Plan Assessment and plan: 1. Acute GI hemorrhage most likely upper GI from peptic ulcer disease with anemia requiring transfusion-H/H falling again; for transfusion of PRBC; f/u GI for further recommendations; cont Protonix drip, npo;monitor H/H 2. Insulin-dependent diabetes mellitus-cotn sliding scale 3. DVT prophylaxis: SCDs only due to GI bleed 5. ESRD on HD- f/u renal for HD; monitor lytes 6. AVF bleeding- f/u vascular for further manx 7. Mental disorder-? MR- psyche consult; haldol prn with benadryl CCT exclusive of all other billable procedures 32 minutes History Interval history: f/u GIB; severe anemia Recently seen at the bedside, no more vomiting; vascular procedure for AVF Hospitalist Physical - Constitutional Vitals: Temp Pulse Resp BP Pulse Ox 98.4 F 111 H 29 H 188/91 96 11/19/16 15:09 11/19/16 15:09 11/19/16 15:09 11/19/16 15:09 11/19/16 15:09 General appearance: Present: no acute distress - EENT Eyes: Present: PERRL, irregular pupil. Absent: scleral icterus, conjunctival injection ENT: hearing intact, clear oral mucosa, no oropharyngeal erythema, no poor dentition - Neck Neck: Present: supple, normal ROM. Absent: enlarged thyroid, masses or JVD - Respiratory Respiratory effort: normal Respiratory: negative: diminished, rales, rhonchi, wheezing - Cardiovascular Rhythm: regular Heart Sounds: Present: S1 & S2. Absent: gallop - Extremities Extremities: no ischemia, pulses intact, pulses symmetrical, No edema Peripheral Pulses: within normal limits - Abdominal General gastrointestinal: soft, non-tender, non-distended - Integumentary Integumentary: Present: clear - Psychiatric Psychiatric: appropriate mood/affect, intact judgment & insight - Neurologic Neurologic: CNII-XII intact, moves all extremities Results - Labs CBC & Chem 7: 11/19/16 08:28 11/19/16 08:30 Labs: Laboratory Last Values WBC 7.7 K/mm3 (4.5-11.0) 11/19/16 08:28 RBC 2.25 M/mm3 (3.65-5.03) L 11/19/16 08:28 Hgb 6.8 gm/dl (10.1-14.3) L 11/19/16 08:28 Hct 19.6 % (30.3-42.9) L* 11/19/16 08:28 MCV 87 fl (79-97) 11/19/16 08:28 MCH 30 pg (28-32) 11/19/16 08:28 MCHC 34 % (30-34) 11/19/16 08:28 RDW 16.0 % (13.2-15.2) H 11/19/16 08:28 Plt Count 226 K/mm3 (140-440) 11/19/16 08:28 Lymph % (Auto) 11.2 % (13.4-35.0) L 11/18/16 04:30 [place] % (Auto) 5.8 % (0.0-7.3) 11/18/16 04:30 Eos % (Auto) 0.9 % (0.0-4.3) 11/18/16 04:30 Baso % (Auto) 0.8 % (0.0-1.8) 11/18/16 04:30 Lymph # 0.8 K/mm3 (1.2-5.4) L 11/18/16 04:30 [place] # 0.4 K/mm3 (0.0-0.8) 11/18/16 04:30 Eos # 0.1 K/mm3 (0.0-0.4) 11/18/16 04:30 Baso # 0.1 K/mm3 (0.0-0.1) 11/18/16 04:30 Add Manual Diff Complete 11/16/16 10:01 Total Counted 100 11/16/16 10:01 Seg Neutrophils % 81.3 % (40.0-70.0) H 11/18/16 04:30 Seg Neuts % (Manual) 97.0 % (40.0-70.0) H 11/16/16 10:01 Band Neutrophils % 0 % 11/16/16 10:01 Lymphocytes % (Manual) 2.0 % (13.4-35.0) L 11/16/16 10:01 Reactive Lymphs % (Man) 0 % 11/16/16 10:01 Monocytes % (Manual) 1.0 % (0.0-7.3) 11/16/16 10:01 Eosinophils % (Manual) 0 % (0.0-4.3) 11/16/16 10:01 Basophils % (Manual) 0 % (0.0-1.8) 11/16/16 10:01 Metamyelocytes % 0 % 11/16/16 10:01 Myelocytes % 0 % 11/16/16 10:01 Promyelocytes % 0 % 11/16/16 10:01 Blast Cells % 0 % 11/16/16 10:01 Nucleated RBC % Not Reportable 11/16/16 10:01 Seg Neutrophils # 5.9 K/mm3 (1.8-7.7) 11/18/16 04:30 Seg Neutrophils # Man 9.1 K/mm3 (1.8-7.7) H 11/16/16 10:01 Band Neutrophils # 0.0 K/mm3 11/16/16 10:01 Lymphocytes # (Manual) 0.2 K/mm3 (1.2-5.4) L 11/16/16 10:01 Abs React Lymphs (Man) 0.0 K/mm3 11/16/16 10:01 Monocytes # (Manual) 0.1 K/mm3 (0.0-0.8) 11/16/16 10:01 Eosinophils # (Manual) 0.0 K/mm3 (0.0-0.4) 11/16/16 10:01 Basophils # (Manual) 0.0 K/mm3 (0.0-0.1) 11/16/16 10:01 Metamyelocytes # 0.0 K/mm3 11/16/16 10:01 Myelocytes # 0.0 K/mm3 11/16/16 10:01 Promyelocytes # 0.0 K/mm3 11/16/16 10:01 Blast Cells # 0.0 K/mm3 11/16/16 10:01 WBC Morphology Not Reportable 11/16/16 10:01 Hypersegmented Neuts Not Reportable 11/16/16 10:01 Hyposegmented Neuts Not Reportable 11/16/16 10:01 Hypogranular Neuts Not Reportable 11/16/16 10:01 Smudge Cells Not Reportable 11/16/16 10:01 Toxic Granulation Not Reportable 11/16/16 10:01 Toxic Vacuolation Not Reportable 11/16/16 10:01 Dohle Bodies Not Reportable 11/16/16 10:01 Pelger-Huet Anomaly Not Reportable 11/16/16 10:01 Sarah Rods Not Reportable 11/16/16 10:01 Platelet Estimate Appears normal 11/16/16 10:01 Clumped Platelets Not Reportable 11/16/16 10:01 Plt Clumps, EDTA Not Reportable 11/16/16 10:01 Large Platelets Not Reportable 11/16/16 10:01 Giant Platelets Not Reportable 11/16/16 10:01 Platelet Satelliting Not Reportable 11/16/16 10:01 Plt Morphology Comment Not Reportable 11/16/16 10:01 RBC Morphology Not Reportable 11/16/16 10:01 Dimorphic RBCs Not Reportable 11/16/16 10:01 Polychromasia Not Reportable 11/16/16 10:01 Hypochromasia 1+ 11/16/16 10:01 Poikilocytosis Not Reportable 11/16/16 10:01 Anisocytosis 1+ 11/16/16 10:01 Microcytosis 1+ 11/16/16 10:01 Macrocytosis Not Reportable 11/16/16 10:01 Spherocytes Not Reportable 11/16/16 10:01 Pappenheimer Bodies Not Reportable 11/16/16 10:01 Sickle Cells Not Reportable 11/16/16 10:01 Target Cells Not Reportable 11/16/16 10:01 Tear Drop Cells Not Reportable 11/16/16 10:01 Ovalocytes Few 11/16/16 10:01 Helmet Cells Not Reportable 11/16/16 10:01 [place] Bodies Not Reportable 11/16/16 10:01 [place] Rings Not Reportable 11/16/16 10:01 [place] Cells Not Reportable 11/16/16 10:01 Bite Cells Not Reportable 11/16/16 10:01 Crenated Cell Not Reportable 11/16/16 10:01 Elliptocytes Not Reportable 11/16/16 10:01 Acanthocytes (Spur) Not Reportable 11/16/16 10:01 Rouleaux Not Reportable 11/16/16 10:01 Hemoglobin C Crystals Not Reportable 11/16/16 10:01 Schistocytes Not Reportable 11/16/16 10:01 Malaria parasites Not Reportable 11/16/16 10:01 Jerald Bodies Not Reportable 11/16/16 10:01 Hem Pathologist Commnt No 11/16/16 10:01 PT 14.3 Sec. (12.2-14.9) 11/17/16 17:30 INR 1.12 (0.87-1.13) 11/17/16 17:30 APTT 20.4 Sec. (24.2-36.6) L 11/17/16 17:30 Sodium 142 mmol/L (137-145) 11/19/16 08:30 Potassium 4.3 mmol/L (3.6-5.0) 11/19/16 08:30 Chloride 98.0 mmol/L (98-107) 11/19/16 08:30 Carbon Dioxide 25 mmol/L (22-30) 11/19/16 08:30 Anion Gap 23 mmol/L 11/19/16 08:30 BUN 53 mg/dL (7-17) H 11/19/16 08:30 Creatinine 6.6 mg/dL (0.7-1.2) H D 11/19/16 08:30 Estimated GFR 9 ml/min 11/19/16 08:30 BUN/Creatinine Ratio 8.03 % 11/19/16 08:30 Glucose 134 mg/dL (65-100) H 11/19/16 08:30 POC Glucose 135 (70-105) H 11/18/16 15:49 Calcium 8.0 mg/dL (8.4-10.2) L 11/19/16 08:30 Total Bilirubin 0.3 mg/dL (0.1-1.2) 11/16/16 10:01 AST 8 units/L (5-40) 11/16/16 10:01 ALT < 5 units/L (7-56) L 11/16/16 10:01 Alkaline Phosphatase 84 units/L (35-129) 11/16/16 10:01 Total Protein 6.7 g/dL (6.3-8.2) 11/16/16 10:01 Albumin 3.3 g/dL (3.9-5) L 11/16/16 10:01 Albumin/Globulin Ratio 1.0 % 11/16/16 10:01 Lipase 57 units/L (13-60) 11/16/16 10:01 Blood Type B POSITIVE 11/16/16 13:45 Antibody Screen Positive 11/16/16 13:45 Antibody Identification Anti-E 11/16/16 13:45 Crossmatch See Detail 11/16/16 13:45
[2016-11-19] MEDS: PROTONIX IV SCH (22:30)
[2016-11-20] MEDS: BENADRYL IV PRN ×4 (00:12→20:26)
[2016-11-20] MEDS: ATIVAN IV PRN ×4 (00:12→20:26)
[2016-11-20] MEDS: DILAUDID IV PRN ×5 (00:12→20:25)
[2016-11-20] MEDS: ZOFRAN IV PRN ×3 (00:19→08:20)
[2016-11-20 04:09] LABS: Basophils % (Auto) 0.4 % (0.0-1.8); Eosinophils % (Auto) 1.7 % (0.0-4.3); Hematocrit 23.3 % (30.3-42.9); Mean Corpuscular HGB Conc 35 % (30-34); Mean Corpuscular Hemoglobin 30 pg (28-32); Mean Corpuscular Volume 88 fl (79-97); Platelet Count 181 K/mm3 (140-440); Red Blood Count 2.65 M/mm3 (3.65-5.03); White Blood Count 7.4 K/mm3 (4.5-11.0)
[2016-11-20 04:35] LABS: Albumin 3.3 g/dL (3.9-5); Albumin/Globulin Ratio 1.3 %; Alkaline Phosphatase 90 units/L (35-129); BUN/Creatinine Ratio 5.58; Bilirubin,Total 0.3 mg/dL (0.1-1.2); Blood Urea Nitrogen 24 mg/dL (7-17); Calcium 7.8 mg/dL (8.4-10.2); Carbon Dioxide 29 mmol/L (22-30); Chloride 96.1 mmol/L (98-107); Glucose 93 mg/dL (65-100); Potassium 3.8 mmol/L (3.6-5.0); Sodium 139 mmol/L (137-145); Total Protein 5.8 g/dL (6.3-8.2)
[2016-11-20 04:50] LABS: Alanine Aminotransferase < 5 units/L (7-56)
[2016-11-20 04:51] LABS: Anion Gap 18 mmol/L
--- NOTE | 2016-11-20 09:16 | Progress Note ---
Assessment and Plan 36 y/o with ESRD on HD, admitted with acute blood loss anemia, thought secondary to GI bleed, now with bleeding right arm fistula. 1. Follow up HGB, will repeat again in am 2. Attempt to wean off cardene. If patient able to tolerate PO now, should make an attempt to place back on PO meds 3. In the past, had been on reglan for gastroparesis, suggest restarting this to help tolerate PO 4. If able to be weaned off cardene and no drops in HgB, should be stable for transfer out of unit. CCT 31 minutes Subjective Date of service: 11/20/16 Principal diagnosis: UGI bleeding Interval history: Remains on cardene drip at 2.6. BP elevated. Currently on clonidine patch and IV hydralazine and labetalol PRN. Does not appear that she has had any other bleeding episodes. Was transfused 2 units on yesterday and hemoglobin adequately responded. Asleep now, no complaints. Objective - Constitutional Vitals: Vital Signs - 12hr 11/19/16 11/19/16 11/19/16 21:15 21:30 21:45 Temperature Pulse Rate 108 H 103 H 101 H Pulse Rate [ From Monitor] Respiratory 18 18 17 Rate Blood Pressure 166/85 151/79 149/77 O2 Sat by Pulse 96 95 95 Oximetry 11/19/16 11/19/16 11/19/16 21:50 22:00 22:08 Temperature 97.4 F L Pulse Rate 101 H 105 H 102 H Pulse Rate [ From Monitor] Respiratory 16 16 Rate Blood Pressure 149/77 169/81 169/81 O2 Sat by Pulse 95 Oximetry 11/19/16 11/19/16 11/19/16 22:15 22:30 22:45 Temperature Pulse Rate 98 H 97 H 95 H Pulse Rate [ From Monitor] Respiratory 18 18 18 Rate Blood Pressure 146/76 142/74 145/72 O2 Sat by Pulse 97 94 94 Oximetry 11/19/16 11/19/16 11/19/16 23:00 23:07 23:15 Temperature Pulse Rate 95 H 95 H 94 H Pulse Rate [ From Monitor] Respiratory 18 18 17 Rate Blood Pressure 144/74 144/74 145/73 O2 Sat by Pulse 94 98 95 Oximetry 11/19/16 11/19/16 11/20/16 23:30 23:45 00:00 Temperature 98.7 F Pulse Rate 95 H 96 H Pulse Rate [ 102 H From Monitor] Respiratory 18 20 20 Rate Blood Pressure 147/74 151/78 O2 Sat by Pulse 95 95 99 Oximetry 11/20/16 11/20/16 11/20/16 00:01 00:15 00:30 Temperature Pulse Rate 113 H 110 H 109 H Pulse Rate [ From Monitor] Respiratory 20 17 8 L Rate Blood Pressure 175/85 155/84 166/93 O2 Sat by Pulse 94 94 94 Oximetry 11/20/16 11/20/16 11/20/16 00:45 01:00 01:15 Temperature Pulse Rate 107 H 103 H 103 H Pulse Rate [ From Monitor] Respiratory 26 H 22 20 Rate Blood Pressure 165/85 168/83 161/87 O2 Sat by Pulse 90 95 96 Oximetry 11/20/16 11/20/16 11/20/16 01:30 01:45 02:00 Temperature Pulse Rate 100 H 97 H 94 H Pulse Rate [ From Monitor] Respiratory 18 19 22 Rate Blood Pressure 158/80 152/82 150/77 O2 Sat by Pulse 96 95 95 Oximetry 11/20/16 11/20/16 11/20/16 02:15 02:30 02:45 Temperature Pulse Rate 93 H 93 H 91 H Pulse Rate [ From Monitor] Respiratory 20 20 16 Rate Blood Pressure 149/77 148/75 147/75 O2 Sat by Pulse 95 95 96 Oximetry 11/20/16 11/20/16 11/20/16 03:00 03:15 03:30 Temperature Pulse Rate 94 H 93 H 93 H Pulse Rate [ From Monitor] Respiratory 21 19 20 Rate Blood Pressure 152/79 151/78 154/78 O2 Sat by Pulse 96 95 96 Oximetry 11/20/16 11/20/16 11/20/16 03:45 04:00 04:01 Temperature 98.5 F Pulse Rate 96 H 103 H Pulse Rate [ 99 H From Monitor] Respiratory 19 21 13 Rate Blood Pressure 164/81 164/81 O2 Sat by Pulse 96 98 96 Oximetry 11/20/16 11/20/16 11/20/16 04:15 04:30 04:45 Temperature Pulse Rate 102 H 102 H 99 H Pulse Rate [ From Monitor] Respiratory 10 L 21 20 Rate Blood Pressure 164/86 176/87 165/84 O2 Sat by Pulse 94 92 96 Oximetry 02/0411/20/16 11/20/16 05:00 05:15 05:30 Temperature Pulse Rate 99 H 105 H 97 H Pulse Rate [ From Monitor] Respiratory 19 18 20 Rate Blood Pressure 163/86 174/88 154/80 O2 Sat by Pulse 97 95 99 Oximetry 11/20/16 11/20/16 11/20/16 05:45 06:00 06:15 Temperature Pulse Rate 96 H 94 H 93 H Pulse Rate [ From Monitor] Respiratory 17 19 19 Rate Blood Pressure 156/76 147/75 150/72 O2 Sat by Pulse 98 97 97 Oximetry 11/20/16 11/20/16 11/20/16 06:30 06:45 07:00 Temperature Pulse Rate 103 H 101 H 93 H Pulse Rate [ From Monitor] Respiratory 18 13 24 Rate Blood Pressure 166/84 165/84 148/77 O2 Sat by Pulse 98 96 95 Oximetry 11/20/16 11/20/16 11/20/16 07:15 07:30 07:45 Temperature Pulse Rate 94 H 96 H 95 H Pulse Rate [ From Monitor] Respiratory 24 23 23 Rate Blood Pressure 149/76 158/79 155/80 O2 Sat by Pulse 95 95 96 Oximetry 11/20/16 11/20/16 08:00 08:20 Temperature 98.8 F Pulse Rate 99 H Pulse Rate [ From Monitor] Respiratory 23 20 Rate Blood Pressure 169/87 O2 Sat by Pulse 96 Oximetry General appearance: Present: no acute distress, well-nourished, obese - Neck Neck: supple, normal ROM - Respiratory Respiratory effort: normal Respiratory: bilateral: CTA - Cardiovascular Rhythm: regular Heart Sounds: Present: S1 & S2 - Gastrointestinal General gastrointestinal: Present: soft - Labs CBC & Chem 7: 11/20/16 04:00 11/20/16 04:00 Labs: Abnormal lab results 11/16/16 11/19/16 11/19/16 Range/Units 13:45 08:28 08:30 RBC (3.65-5.03) M/mm3 Hgb (10.1-14.3) gm/dl Hct 19.6 L* (30.3-42.9) % MCHC (30-34) % Lymph % (Auto) (13.4-35.0) % [place] % (Auto) (0.0-7.3) % Lymph # (1.2-5.4) K/mm3 Seg Neutrophils % (40.0-70.0) % Chloride (98-107) mmol/L BUN (7-17) mg/dL Creatinine 6.6 H D (0.7-1.2) mg/dL POC Glucose (70-105) Calcium (8.4-10.2) mg/dL ALT (7-56) units/L Total Protein (6.3-8.2) g/dL Albumin (3.9-5) g/dL Crossmatch See Detail 11/19/16 11/19/16 11/20/16 Range/Units 12:49 17:50 04:00 RBC 2.65 L (3.65-5.03) M/mm3 Hgb 8.0 L (10.1-14.3) gm/dl Hct 23.3 L (30.3-42.9) % MCHC 35 H (30-34) % Lymph % (Auto) 12.3 L (13.4-35.0) % [place] % (Auto) 7.8 H (0.0-7.3) % Lymph # 0.9 L (1.2-5.4) K/mm3 Seg Neutrophils % 77.8 H (40.0-70.0) % Chloride (98-107) mmol/L BUN (7-17) mg/dL Creatinine (0.7-1.2) mg/dL POC Glucose 138 H (70-105) Calcium (8.4-10.2) mg/dL ALT (7-56) units/L Total Protein (6.3-8.2) g/dL Albumin (3.9-5) g/dL Crossmatch See Detail 11/20/16 Range/Units 04:00 RBC (3.65-5.03) M/mm3 Hgb (10.1-14.3) gm/dl Hct (30.3-42.9) % MCHC (30-34) % Lymph % (Auto) (13.4-35.0) % [place] % (Auto) (0.0-7.3) % Lymph # (1.2-5.4) K/mm3 Seg Neutrophils % (40.0-70.0) % Chloride 96.1 L (98-107) mmol/L BUN 24 H (7-17) mg/dL Creatinine 4.3 H (0.7-1.2) mg/dL POC Glucose (70-105) Calcium 7.8 L (8.4-10.2) mg/dL ALT < 5 L (7-56) units/L Total Protein 5.8 L (6.3-8.2) g/dL Albumin 3.3 L (3.9-5) g/dL Crossmatch
--- NOTE | 2016-11-20 10:37 | Gastroenterology Progress Note ---
Assessment and Plan GI: no signs bleeding overnight - continue PPI drip and other treatment - clear liquid diet - follow h/h, transfuse as needed - consider EGD based on progress, may do on Tuesday - will follow Subjective Date of service: 11/20/16 Principal diagnosis: UGI bleeding Interval history: - no signs bleeding overnight Objective - Constitutional Vitals: Temp Pulse Resp BP Pulse Ox 98.8 F 99 H 20 169/87 99 11/20/16 08:00 11/20/16 08:00 11/20/16 08:20 11/20/16 08:00 11/20/16 09:47 General appearance: no acute distress - Respiratory Respiratory: bilateral: CTA - Cardiovascular Rhythm: regular Heart Sounds: Present: S1 & S2 - Gastrointestinal General gastrointestinal: Present: soft, non-tender - Labs CBC & Chem 7: 11/20/16 04:00 11/20/16 04:00 Labs: Laboratory Results - last 24 hr 11/16/16 11/19/16 11/19/16 13:45 12:49 17:50 WBC RBC Hgb Hct MCV MCH MCHC RDW Plt Count Lymph % (Auto) [place] % (Auto) Eos % (Auto) Baso % (Auto) Lymph # [place] # Eos # Baso # Seg Neutrophils % Seg Neutrophils # Sodium Potassium Chloride Carbon Dioxide Anion Gap BUN Creatinine Estimated GFR BUN/Creatinine Ratio Glucose POC Glucose 138 H Calcium Total Bilirubin AST ALT Alkaline Phosphatase Total Protein Albumin Albumin/Globulin Ratio Blood Type B POSITIVE B POSITIVE Antibody Screen Positive Positive Antibody Identification Anti-E Anti-E Crossmatch See Detail See Detail 11/20/16 11/20/16 11/20/16 00:20 04:00 04:00 WBC 7.4 RBC 2.65 L Hgb 8.0 L Hct 23.3 L MCV 88 MCH 30 MCHC 35 H RDW 15.0 Plt Count 181 Lymph % (Auto) 12.3 L [place] % (Auto) 7.8 H Eos % (Auto) 1.7 Baso % (Auto) 0.4 Lymph # 0.9 L [place] # 0.6 Eos # 0.1 Baso # 0.0 Seg Neutrophils % 77.8 H Seg Neutrophils # 5.7 Sodium 139 Potassium 3.8 Chloride 96.1 L Carbon Dioxide 29 Anion Gap 18 BUN 24 H Creatinine 4.3 H Estimated GFR 14 BUN/Creatinine Ratio 5.58 Glucose 93 POC Glucose 105 Calcium 7.8 L Total Bilirubin 0.3 AST 11 ALT < 5 L Alkaline Phosphatase 90 Total Protein 5.8 L Albumin 3.3 L Albumin/Globulin Ratio 1.3 Blood Type Antibody Screen Antibody Identification Crossmatch
[2016-11-20] MEDS: PROTONIX IV SCH ×2 (10:39→23:05)
[2016-11-20] MEDS ORDERED: PROCARDIA XL PO ONE (11:01)
--- NOTE | 2016-11-20 11:05 | Progress Note ---
Assessment and Plan Assessment and plan: 1. Acute GI hemorrhage most likely upper GI from peptic ulcer disease with anemia requiring transfusion-H/H better after repeated transfusion; monitor; started on clear fluid by GI; f/u GI for further recommendations regarding EGD; cont Protonix drip, monitor H/H 2. Insulin-dependent diabetes mellitus-cotn sliding scale 3. DVT prophylaxis: SCDs only due to GI bleed 5. ESRD on HD- f/u renal for HD; monitor lytes 6. AVF bleeding- f/u vascular for further manx 7. Mental disorder-? MR- still awaiting psyche consult; haldol prn with benadryl 8. Hypertive urgency- start po BP meds and taper off cardine CCT exclusive of all other billable procedures 31 minutes transfer to floor if BP stable off cardine History Interval history: f/u GIB; severe anemia Recently seen at the bedside, no more vomiting; had vascular procedure for AVF; patient complained of pain at the site Hospitalist Physical - Constitutional Vitals: Temp Pulse Resp BP Pulse Ox 98.8 F 99 H 20 169/87 99 11/20/16 08:00 11/20/16 08:00 11/20/16 08:20 11/20/16 08:00 11/20/16 09:47 General appearance: Present: no acute distress, well-nourished, obese - EENT Eyes: Present: PERRL, EOM intact. Absent: scleral icterus, conjunctival injection ENT: hearing intact, clear oral mucosa, no oropharyngeal erythema, no poor dentition - Neck Neck: Present: supple, normal ROM. Absent: enlarged thyroid, masses or JVD - Respiratory Respiratory effort: normal Respiratory: bilateral: diminished, negative: rales, rhonchi, wheezing - Cardiovascular Rhythm: regular Heart Sounds: Present: S1 & S2. Absent: gallop - Extremities Extremities: no ischemia, pulses intact, pulses symmetrical, No edema Peripheral Pulses: within normal limits - Abdominal General gastrointestinal: soft, non-tender, non-distended - Integumentary Integumentary: Present: clear - Psychiatric Psychiatric: cooperative - Neurologic Neurologic: CNII-XII intact, moves all extremities Results - Labs CBC & Chem 7: 11/20/16 04:00 11/20/16 04:00 Labs: Laboratory Last Values WBC 7.4 K/mm3 (4.5-11.0) 11/20/16 04:00 RBC 2.65 M/mm3 (3.65-5.03) L 11/20/16 04:00 Hgb 8.0 gm/dl (10.1-14.3) L 11/20/16 04:00 Hct 23.3 % (30.3-42.9) L 11/20/16 04:00 MCV 88 fl (79-97) 11/20/16 04:00 MCH 30 pg (28-32) 11/20/16 04:00 MCHC 35 % (30-34) H 11/20/16 04:00 RDW 15.0 % (13.2-15.2) 11/20/16 04:00 Plt Count 181 K/mm3 (140-440) 11/20/16 04:00 Lymph % (Auto) 12.3 % (13.4-35.0) L 11/20/16 04:00 [place] % (Auto) 7.8 % (0.0-7.3) H 11/20/16 04:00 Eos % (Auto) 1.7 % (0.0-4.3) 11/20/16 04:00 Baso % (Auto) 0.4 % (0.0-1.8) 11/20/16 04:00 Lymph # 0.9 K/mm3 (1.2-5.4) L 11/20/16 04:00 [place] # 0.6 K/mm3 (0.0-0.8) 11/20/16 04:00 Eos # 0.1 K/mm3 (0.0-0.4) 11/20/16 04:00 Baso # 0.0 K/mm3 (0.0-0.1) 11/20/16 04:00 Add Manual Diff Complete 11/16/16 10:01 Total Counted 100 11/16/16 10:01 Seg Neutrophils % 77.8 % (40.0-70.0) H 11/20/16 04:00 Seg Neuts % (Manual) 97.0 % (40.0-70.0) H 11/16/16 10:01 Band Neutrophils % 0 % 11/16/16 10:01 Lymphocytes % (Manual) 2.0 % (13.4-35.0) L 11/16/16 10:01 Reactive Lymphs % (Man) 0 % 11/16/16 10:01 Monocytes % (Manual) 1.0 % (0.0-7.3) 11/16/16 10:01 Eosinophils % (Manual) 0 % (0.0-4.3) 11/16/16 10:01 Basophils % (Manual) 0 % (0.0-1.8) 11/16/16 10:01 Metamyelocytes % 0 % 11/16/16 10:01 Myelocytes % 0 % 11/16/16 10:01 Promyelocytes % 0 % 11/16/16 10:01 Blast Cells % 0 % 11/16/16 10:01 Nucleated RBC % Not Reportable 11/16/16 10:01 Seg Neutrophils # 5.7 K/mm3 (1.8-7.7) 11/20/16 04:00 Seg Neutrophils # Man 9.1 K/mm3 (1.8-7.7) H 11/16/16 10:01 Band Neutrophils # 0.0 K/mm3 11/16/16 10:01 Lymphocytes # (Manual) 0.2 K/mm3 (1.2-5.4) L 11/16/16 10:01 Abs React Lymphs (Man) 0.0 K/mm3 11/16/16 10:01 Monocytes # (Manual) 0.1 K/mm3 (0.0-0.8) 11/16/16 10:01 Eosinophils # (Manual) 0.0 K/mm3 (0.0-0.4) 11/16/16 10:01 Basophils # (Manual) 0.0 K/mm3 (0.0-0.1) 11/16/16 10:01 Metamyelocytes # 0.0 K/mm3 11/16/16 10:01 Myelocytes # 0.0 K/mm3 11/16/16 10:01 Promyelocytes # 0.0 K/mm3 11/16/16 10:01 Blast Cells # 0.0 K/mm3 11/16/16 10:01 WBC Morphology Not Reportable 11/16/16 10:01 Hypersegmented Neuts Not Reportable 11/16/16 10:01 Hyposegmented Neuts Not Reportable 11/16/16 10:01 Hypogranular Neuts Not Reportable 11/16/16 10:01 Smudge Cells Not Reportable 11/16/16 10:01 Toxic Granulation Not Reportable 11/16/16 10:01 Toxic Vacuolation Not Reportable 11/16/16 10:01 Dohle Bodies Not Reportable 11/16/16 10:01 Pelger-Huet Anomaly Not Reportable 11/16/16 10:01 Sarah Rods Not Reportable 11/16/16 10:01 Platelet Estimate Appears normal 11/16/16 10:01 Clumped Platelets Not Reportable 11/16/16 10:01 Plt Clumps, EDTA Not Reportable 11/16/16 10:01 Large Platelets Not Reportable 11/16/16 10:01 Giant Platelets Not Reportable 11/16/16 10:01 Platelet Satelliting Not Reportable 11/16/16 10:01 Plt Morphology Comment Not Reportable 11/16/16 10:01 RBC Morphology Not Reportable 11/16/16 10:01 Dimorphic RBCs Not Reportable 11/16/16 10:01 Polychromasia Not Reportable 11/16/16 10:01 Hypochromasia 1+ 11/16/16 10:01 Poikilocytosis Not Reportable 11/16/16 10:01 Anisocytosis 1+ 11/16/16 10:01 Microcytosis 1+ 11/16/16 10:01 Macrocytosis Not Reportable 11/16/16 10:01 Spherocytes Not Reportable 11/16/16 10:01 Pappenheimer Bodies Not Reportable 11/16/16 10:01 Sickle Cells Not Reportable 11/16/16 10:01 Target Cells Not Reportable 11/16/16 10:01 Tear Drop Cells Not Reportable 11/16/16 10:01 Ovalocytes Few 11/16/16 10:01 Helmet Cells Not Reportable 11/16/16 10:01 Mariscal-Winthrop Bodies Not Reportable 11/16/16 10:01 [place] Rings Not Reportable 11/16/16 10:01 [place] Cells Not Reportable 11/16/16 10:01 Bite Cells Not Reportable 11/16/16 10:01 Crenated Cell Not Reportable 11/16/16 10:01 Elliptocytes Not Reportable 11/16/16 10:01 Acanthocytes (Spur) Not Reportable 11/16/16 10:01 Rouleaux Not Reportable 11/16/16 10:01 Hemoglobin C Crystals Not Reportable 11/16/16 10:01 Schistocytes Not Reportable 11/16/16 10:01 Malaria parasites Not Reportable 11/16/16 10:01 Jerald Bodies Not Reportable 11/16/16 10:01 Hem Pathologist Commnt No 11/16/16 10:01 PT 14.3 Sec. (12.2-14.9) 11/17/16 17:30 INR 1.12 (0.87-1.13) 11/17/16 17:30 APTT 20.4 Sec. (24.2-36.6) L 11/17/16 17:30 Sodium 139 mmol/L (137-145) 11/20/16 04:00 Potassium 3.8 mmol/L (3.6-5.0) 11/20/16 04:00 Chloride 96.1 mmol/L (98-107) L 11/20/16 04:00 Carbon Dioxide 29 mmol/L (22-30) 11/20/16 04:00 Anion Gap 18 mmol/L 11/20/16 04:00 BUN 24 mg/dL (7-17) H 11/20/16 04:00 Creatinine 4.3 mg/dL (0.7-1.2) H 11/20/16 04:00 Estimated GFR 14 ml/min 11/20/16 04:00 BUN/Creatinine Ratio 5.58 % 11/20/16 04:00 Glucose 93 mg/dL (65-100) 11/20/16 04:00 POC Glucose 105 (70-105) 11/20/16 00:20 Calcium 7.8 mg/dL (8.4-10.2) L 11/20/16 04:00 Total Bilirubin 0.3 mg/dL (0.1-1.2) 11/20/16 04:00 AST 11 units/L (5-40) 11/20/16 04:00 ALT < 5 units/L (7-56) L 11/20/16 04:00 Alkaline Phosphatase 90 units/L (35-129) 11/20/16 04:00 Total Protein 5.8 g/dL (6.3-8.2) L 11/20/16 04:00 Albumin 3.3 g/dL (3.9-5) L 11/20/16 04:00 Albumin/Globulin Ratio 1.3 % 11/20/16 04:00 Lipase 57 units/L (13-60) 11/16/16 10:01 Blood Type B POSITIVE 11/19/16 17:50 Antibody Screen Positive 11/19/16 17:50 Antibody Identification Anti-E 11/19/16 17:50 Crossmatch See Detail 11/19/16 17:50
[2016-11-20] MEDS: COZAAR PO SCH (12:20)
--- NOTE | 2016-11-20 13:33 | Progress Note ---
Assessment and Plan - Patient Problems (1) Abdominal pain Current Visit: Yes Status: Acute Qualifiers: Abdominal location: A Plan to address problem: History of gastroparesis/GERD. Improving (2) ESRD on hemodialysis Current Visit: Yes Status: Acute Plan to address problem: Volume status and electrolytes are stable. Hemodialysis on Tuesday (3) GI bleed Current Visit: Yes Status: Acute Qualifiers: GI bleed type/associated pathology: G Gastritis type: G Plan to address problem: Acute blood loss anemia. Hemoglobin improving. Follow-up hemoglobin. Gastroenterology input appreciated (4) Anemia in chronic kidney disease Current Visit: No Status: Acute Plan to address problem: Follow-up hemoglobin. Continue erythropoietin on dialysis (5) Diabetes mellitus Current Visit: No Status: Acute Qualifiers: Diabetes mellitus type: D Diabetes mellitus complication status: D Diabetes mellitus complication detail: D Diabetic retinopathy severity: D Proliferative retinopathy type: P Diabetes mellitus macular edema: D Diabetes mellitus care home insulin use: D Laterality: L Chronic kidney disease stage: C Plan to address problem: Blood sugar management by primary attending (6) Hypertension Current Visit: No Status: Acute Qualifiers: Hypertension type: H Plan to address problem: Follow-up blood pressure on current medications Subjective Date of service: 11/20/16 Principal diagnosis: UGI bleeding Interval history: Patient seen lying in bed in intensive care unit. She has no complaints today. She no vomiting or hematemesis. She is feeling better and would like to advance her diet. Objective - Exam Narrative Exam: Young -[place] female lying in bed in no acute distress CVS S1-S2 regular rate rhythm without murmur, rub or gallop Chest clear to auscultation Abdomen soft nondistended mild epigastric tenderness, no organomegaly no bruit bowel sounds present Extremities no edema no cyanosis or clubbing Neuro awake, alert oriented x3 no gross deficit - Vital Signs Vital signs: Vital Signs - 12hr 11/20/16 11/20/16 11/20/16 01:30 01:45 02:00 Temperature Pulse Rate 100 H 97 H 94 H Pulse Rate [ From Monitor] Respiratory 18 19 22 Rate Blood Pressure 158/80 152/82 150/77 O2 Sat by Pulse 96 95 95 Oximetry 11/20/16 11/20/16 11/20/16 02:15 02:30 02:45 Temperature Pulse Rate 93 H 93 H 91 H Pulse Rate [ From Monitor] Respiratory 20 20 16 Rate Blood Pressure 149/77 148/75 147/75 O2 Sat by Pulse 95 95 96 Oximetry 11/20/16 11/20/16 11/20/16 03:00 03:15 03:30 Temperature Pulse Rate 94 H 93 H 93 H Pulse Rate [ From Monitor] Respiratory 21 19 20 Rate Blood Pressure 152/79 151/78 154/78 O2 Sat by Pulse 96 95 96 Oximetry 11/20/16 11/20/16 11/20/16 03:45 04:00 04:01 Temperature 98.5 F Pulse Rate 96 H 103 H Pulse Rate [ 99 H From Monitor] Respiratory 19 21 13 Rate Blood Pressure 164/81 164/81 O2 Sat by Pulse 96 98 96 Oximetry 11/20/16 11/20/16 11/20/16 04:15 04:30 04:45 Temperature Pulse Rate 102 H 102 H 99 H Pulse Rate [ From Monitor] Respiratory 10 L 21 20 Rate Blood Pressure 164/86 176/87 165/84 O2 Sat by Pulse 94 92 96 Oximetry 11/20/16 11/20/16 11/20/16 05:00 05:15 05:30 Temperature Pulse Rate 99 H 105 H 97 H Pulse Rate [ From Monitor] Respiratory 19 18 20 Rate Blood Pressure 163/86 174/88 154/80 O2 Sat by Pulse 97 95 99 Oximetry 11/20/16 11/20/16 11/20/16 05:45 06:00 06:15 Temperature Pulse Rate 96 H 94 H 93 H Pulse Rate [ From Monitor] Respiratory 17 19 19 Rate Blood Pressure 156/76 147/75 150/72 O2 Sat by Pulse 98 97 97 Oximetry 11/20/16 11/20/16 11/20/16 06:30 06:45 07:00 Temperature Pulse Rate 103 H 101 H 93 H Pulse Rate [ From Monitor] Respiratory 18 13 24 Rate Blood Pressure 166/84 165/84 148/77 O2 Sat by Pulse 98 96 95 Oximetry 11/20/16 11/20/16 11/20/16 07:15 07:30 07:45 Temperature Pulse Rate 94 H 96 H 95 H Pulse Rate [ From Monitor] Respiratory 24 23 23 Rate Blood Pressure 149/76 158/79 155/80 O2 Sat by Pulse 95 95 96 Oximetry 11/20/16 11/20/16 11/20/16 08:00 08:20 09:47 Temperature 98.8 F Pulse Rate 99 H Pulse Rate [ From Monitor] Respiratory 23 20 Rate Blood Pressure 169/87 O2 Sat by Pulse 96 99 Oximetry 11/20/16 11/20/16 12:20 13:06 Temperature Pulse Rate 98 H Pulse Rate [ From Monitor] Respiratory 11 L Rate Blood Pressure 169/84 O2 Sat by Pulse Oximetry - Lab 11/20/16 04:00 11/20/16 04:00 Most recent lab results Calcium 7.8 mg/dL (8.4-10.2) L 11/20/16 04:00
[2016-11-20] MEDS: NORMODYNE PO SCH ×2 (14:58→23:05)
[2016-11-20] MEDS: CATAPRES PO SCH ×2 (14:58→20:26)
[2016-11-20 16:41] LABS: Hematocrit 21.7 % (30.3-42.9); Hemoglobin 7.3 gm/dl (10.1-14.3)
[2016-11-20] MEDS: PROCARDIA XL PO SCH (23:05)
[2016-11-21] MEDS: DILAUDID IV PRN ×5 (04:21→22:02)
[2016-11-21] MEDS: ATIVAN IV PRN ×4 (04:21→22:01)
[2016-11-21] MEDS: BENADRYL IV PRN ×3 (04:21→17:40)
[2016-11-21 04:46] LABS: Basophils % (Auto) 0.5 % (0.0-1.8); Eosinophils % (Auto) 3.2 % (0.0-4.3); Hematocrit 21.6 % (30.3-42.9); Hemoglobin 7.5 gm/dl (10.1-14.3); Mean Corpuscular HGB Conc 35 % (30-34); Mean Corpuscular Hemoglobin 31 pg (28-32); Mean Corpuscular Volume 89 fl (79-97); Platelet Count 180 K/mm3 (140-440); Red Blood Count 2.44 M/mm3 (3.65-5.03); Red Cell Distribution Width 15.5 % (13.2-15.2); White Blood Count 6.3 K/mm3 (4.5-11.0)
[2016-11-21 04:58] LABS: BUN/Creatinine Ratio 5.62; Calcium 7.3 mg/dL (8.4-10.2); Chloride 94.6 mmol/L (98-107); Potassium 4.2 mmol/L (3.6-5.0)
[2016-11-21] MEDS: NORMODYNE PO SCH ×3 (05:57→22:00)
[2016-11-21] MEDS: CATAPRES PO SCH ×3 (08:31→21:02)
[2016-11-21] MEDS: COZAAR PO SCH (10:00)
[2016-11-21] MEDS: PROCARDIA XL PO SCH ×2 (11:00→22:00)
[2016-11-21] MEDS: PROTONIX IV SCH ×2 (11:00→22:01)
--- NOTE | 2016-11-21 11:10 | Progress Note ---
Assessment and Plan 36 y/o with ESRD on HD, admitted with acute blood loss anemia, thought secondary to GI bleed, now with bleeding right arm fistula. 1.No acute pulmonary issues at present. Will sign off for now. Has baseline chronic respiratory failure. Subjective Date of service: 11/21/16 Principal diagnosis: UGI bleeding Interval history: No acute events. Successful transition out of the ICU. NO family at bedside. Objective - Constitutional Vitals: Vital Signs - 12hr 11/20/16 11/21/16 11/21/16 23:50 04:21 04:51 Temperature Pulse Rate Pulse Rate [ Apical] Pulse Rate [ Left Radial] Respiratory 20 20 Rate Respiratory 20 Rate [Upper Anterior Abdomen] Blood Pressure Blood Pressure [Left Arm] O2 Sat by Pulse Oximetry 11/21/16 11/21/16 11/21/16 05:54 05:57 08:31 Temperature 98.2 F Pulse Rate 85 80 Pulse Rate [ 85 Apical] Pulse Rate [ Left Radial] Respiratory 20 Rate Respiratory Rate [Upper Anterior Abdomen] Blood Pressure 130/69 130/69 Blood Pressure 130/69 [Left Arm] O2 Sat by Pulse 92 Oximetry 11/21/16 11/21/16 08:37 10:49 Temperature 98.3 F Pulse Rate Pulse Rate [ Apical] Pulse Rate [ 86 Left Radial] Respiratory 16 Rate Respiratory Rate [Upper Anterior Abdomen] Blood Pressure Blood Pressure 133/67 [Left Arm] O2 Sat by Pulse 97 95 Oximetry - Labs CBC & Chem 7: 11/21/16 04:10 11/21/16 04:10 Labs: Abnormal lab results 11/20/16 11/20/16 11/21/16 Range/Units 15:00 22:42 04:10 RBC 2.44 L (3.65-5.03) M/mm3 Hgb 7.3 L 7.5 L (10.1-14.3) gm/dl Hct 21.7 L 21.6 L (30.3-42.9) % MCHC 35 H (30-34) % RDW 15.5 H (13.2-15.2) % Lymph % (Auto) 10.0 L (13.4-35.0) % [place] % (Auto) 9.8 H (0.0-7.3) % Lymph # 0.6 L (1.2-5.4) K/mm3 Seg Neutrophils % 76.5 H (40.0-70.0) % Sodium (137-145) mmol/L Chloride (98-107) mmol/L BUN (7-17) mg/dL Creatinine (0.7-1.2) mg/dL Glucose (65-100) mg/dL POC Glucose 114 H (70-105) Calcium (8.4-10.2) mg/dL 11/21/16 Range/Units 04:10 RBC (3.65-5.03) M/mm3 Hgb (10.1-14.3) gm/dl Hct (30.3-42.9) % MCHC (30-34) % RDW (13.2-15.2) % Lymph % (Auto) (13.4-35.0) % [place] % (Auto) (0.0-7.3) % Lymph # (1.2-5.4) K/mm3 Seg Neutrophils % (40.0-70.0) % Sodium 136 L (137-145) mmol/L Chloride 94.6 L (98-107) mmol/L BUN 36 H (7-17) mg/dL Creatinine 6.4 H (0.7-1.2) mg/dL Glucose 121 H (65-100) mg/dL POC Glucose (70-105) Calcium 7.3 L (8.4-10.2) mg/dL
--- NOTE | 2016-11-21 12:29 | Progress Note ---
Assessment and Plan Assessment and plan: 1. Acute GI hemorrhage most likely upper GI from peptic ulcer disease with anemia requiring transfusion-H/H better after repeated transfusion; monitor; cont GI soft diet; f/u GI for further recommendations regarding EGD; cont Protonix drip, monitor H/H 2. Insulin-dependent diabetes mellitus-cotn sliding scale 3. DVT prophylaxis: SCDs only due to GI bleed 5. ESRD on HD- f/u renal for HD; monitor lytes 6. AVF bleeding- post vascular procedure; no further bleeding 7. Mental disorder-? MR- still awaiting psyche consult; haldol prn with benadryl 8. Hypertive urgency- now BP better controlled; cont po meds History Interval history: f/u GIB; severe anemia Recently seen at the bedside, vomited last night; had vascular procedure for AVF ; Hospitalist Physical - Constitutional Vitals: Temp Pulse Resp BP Pulse Ox 98.3 F 86 16 133/67 95 11/21/16 10:49 11/21/16 10:49 11/21/16 10:49 11/21/16 10:49 11/21/16 10:49 General appearance: Present: no acute distress, well-nourished, obese - EENT Eyes: Present: PERRL, EOM intact. Absent: scleral icterus, conjunctival injection ENT: hearing intact, clear oral mucosa, no oropharyngeal erythema, no poor dentition - Neck Neck: Present: supple, normal ROM. Absent: enlarged thyroid, masses or JVD - Respiratory Respiratory effort: normal Respiratory: negative: diminished, rales, rhonchi, wheezing - Cardiovascular Rhythm: regular Heart Sounds: Present: S1 & S2. Absent: gallop - Extremities Extremities: no ischemia, pulses intact, pulses symmetrical, No edema Peripheral Pulses: within normal limits - Abdominal General gastrointestinal: soft, non-tender, non-distended, normal bowel sounds - Integumentary Integumentary: Present: clear - Psychiatric Psychiatric: appropriate mood/affect, intact judgment & insight, cooperative - Neurologic Neurologic: CNII-XII intact, moves all extremities Results - Labs CBC & Chem 7: 11/21/16 04:10 11/21/16 04:10 Labs: Laboratory Last Values WBC 6.3 K/mm3 (4.5-11.0) 11/21/16 04:10 RBC 2.44 M/mm3 (3.65-5.03) L 11/21/16 04:10 Hgb 7.5 gm/dl (10.1-14.3) L 11/21/16 04:10 Hct 21.6 % (30.3-42.9) L 11/21/16 04:10 MCV 89 fl (79-97) 11/21/16 04:10 MCH 31 pg (28-32) 11/21/16 04:10 MCHC 35 % (30-34) H 11/21/16 04:10 RDW 15.5 % (13.2-15.2) H 11/21/16 04:10 Plt Count 180 K/mm3 (140-440) 11/21/16 04:10 Lymph % (Auto) 10.0 % (13.4-35.0) L 11/21/16 04:10 [place] % (Auto) 9.8 % (0.0-7.3) H 11/21/16 04:10 Eos % (Auto) 3.2 % (0.0-4.3) 11/21/16 04:10 Baso % (Auto) 0.5 % (0.0-1.8) 11/21/16 04:10 Lymph # 0.6 K/mm3 (1.2-5.4) L 11/21/16 04:10 [place] # 0.6 K/mm3 (0.0-0.8) 11/21/16 04:10 Eos # 0.2 K/mm3 (0.0-0.4) 11/21/16 04:10 Baso # 0.0 K/mm3 (0.0-0.1) 11/21/16 04:10 Add Manual Diff Complete 11/16/16 10:01 Total Counted 100 11/16/16 10:01 Seg Neutrophils % 76.5 % (40.0-70.0) H 11/21/16 04:10 Seg Neuts % (Manual) 97.0 % (40.0-70.0) H 11/16/16 10:01 Band Neutrophils % 0 % 11/16/16 10:01 Lymphocytes % (Manual) 2.0 % (13.4-35.0) L 11/16/16 10:01 Reactive Lymphs % (Man) 0 % 11/16/16 10:01 Monocytes % (Manual) 1.0 % (0.0-7.3) 11/16/16 10:01 Eosinophils % (Manual) 0 % (0.0-4.3) 11/16/16 10:01 Basophils % (Manual) 0 % (0.0-1.8) 11/16/16 10:01 Metamyelocytes % 0 % 11/16/16 10:01 Myelocytes % 0 % 11/16/16 10:01 Promyelocytes % 0 % 11/16/16 10:01 Blast Cells % 0 % 11/16/16 10:01 Nucleated RBC % Not Reportable 11/16/16 10:01 Seg Neutrophils # 4.8 K/mm3 (1.8-7.7) 11/21/16 04:10 Seg Neutrophils # Man 9.1 K/mm3 (1.8-7.7) H 11/16/16 10:01 Band Neutrophils # 0.0 K/mm3 11/16/16 10:01 Lymphocytes # (Manual) 0.2 K/mm3 (1.2-5.4) L 11/16/16 10:01 Abs React Lymphs (Man) 0.0 K/mm3 11/16/16 10:01 Monocytes # (Manual) 0.1 K/mm3 (0.0-0.8) 11/16/16 10:01 Eosinophils # (Manual) 0.0 K/mm3 (0.0-0.4) 11/16/16 10:01 Basophils # (Manual) 0.0 K/mm3 (0.0-0.1) 11/16/16 10:01 Metamyelocytes # 0.0 K/mm3 11/16/16 10:01 Myelocytes # 0.0 K/mm3 11/16/16 10:01 Promyelocytes # 0.0 K/mm3 11/16/16 10:01 Blast Cells # 0.0 K/mm3 11/16/16 10:01 WBC Morphology Not Reportable 11/16/16 10:01 Hypersegmented Neuts Not Reportable 11/16/16 10:01 Hyposegmented Neuts Not Reportable 11/16/16 10:01 Hypogranular Neuts Not Reportable 11/16/16 10:01 Smudge Cells Not Reportable 11/16/16 10:01 Toxic Granulation Not Reportable 11/16/16 10:01 Toxic Vacuolation Not Reportable 11/16/16 10:01 Dohle Bodies Not Reportable 11/16/16 10:01 Pelger-Huet Anomaly Not Reportable 11/16/16 10:01 Sarah Rods Not Reportable 11/16/16 10:01 Platelet Estimate Appears normal 11/16/16 10:01 Clumped Platelets Not Reportable 11/16/16 10:01 Plt Clumps, EDTA Not Reportable 11/16/16 10:01 Large Platelets Not Reportable 11/16/16 10:01 Giant Platelets Not Reportable 11/16/16 10:01 Platelet Satelliting Not Reportable 11/16/16 10:01 Plt Morphology Comment Not Reportable 11/16/16 10:01 RBC Morphology Not Reportable 11/16/16 10:01 Dimorphic RBCs Not Reportable 11/16/16 10:01 Polychromasia Not Reportable 11/16/16 10:01 Hypochromasia 1+ 11/16/16 10:01 Poikilocytosis Not Reportable 11/16/16 10:01 Anisocytosis 1+ 11/16/16 10:01 Microcytosis 1+ 11/16/16 10:01 Macrocytosis Not Reportable 11/16/16 10:01 Spherocytes Not Reportable 11/16/16 10:01 Pappenheimer Bodies Not Reportable 11/16/16 10:01 Sickle Cells Not Reportable 11/16/16 10:01 Target Cells Not Reportable 11/16/16 10:01 Tear Drop Cells Not Reportable 11/16/16 10:01 Ovalocytes Few 11/16/16 10:01 Helmet Cells Not Reportable 11/16/16 10:01 [place] Bodies Not Reportable 11/16/16 10:01 [place] Rings Not Reportable 11/16/16 10:01 [place] Cells Not Reportable 11/16/16 10:01 Bite Cells Not Reportable 11/16/16 10:01 Crenated Cell Not Reportable 11/16/16 10:01 Elliptocytes Not Reportable 11/16/16 10:01 Acanthocytes (Spur) Not Reportable 11/16/16 10:01 Rouleaux Not Reportable 11/16/16 10:01 Hemoglobin C Crystals Not Reportable 11/16/16 10:01 Schistocytes Not Reportable 11/16/16 10:01 Malaria parasites Not Reportable 11/16/16 10:01 Jerald Bodies Not Reportable 11/16/16 10:01 Hem Pathologist Commnt No 11/16/16 10:01 PT 14.3 Sec. (12.2-14.9) 11/17/16 17:30 INR 1.12 (0.87-1.13) 11/17/16 17:30 APTT 20.4 Sec. (24.2-36.6) L 11/17/16 17:30 Sodium 136 mmol/L (137-145) L 11/21/16 04:10 Potassium 4.2 mmol/L (3.6-5.0) 11/21/16 04:10 Chloride 94.6 mmol/L (98-107) L 11/21/16 04:10 Carbon Dioxide 27 mmol/L (22-30) 11/21/16 04:10 Anion Gap 19 mmol/L 11/21/16 04:10 BUN 36 mg/dL (7-17) H 11/21/16 04:10 Creatinine 6.4 mg/dL (0.7-1.2) H 11/21/16 04:10 Estimated GFR 9 ml/min 11/21/16 04:10 BUN/Creatinine Ratio 5.62 % 11/21/16 04:10 Glucose 121 mg/dL (65-100) H 11/21/16 04:10 POC Glucose 114 (70-105) H 11/20/16 22:42 Calcium 7.3 mg/dL (8.4-10.2) L 11/21/16 04:10 Total Bilirubin 0.3 mg/dL (0.1-1.2) 11/20/16 04:00 AST 11 units/L (5-40) 11/20/16 04:00 ALT < 5 units/L (7-56) L 11/20/16 04:00 Alkaline Phosphatase 90 units/L (35-129) 11/20/16 04:00 Total Protein 5.8 g/dL (6.3-8.2) L 11/20/16 04:00 Albumin 3.3 g/dL (3.9-5) L 11/20/16 04:00 Albumin/Globulin Ratio 1.3 % 11/20/16 04:00 Lipase 57 units/L (13-60) 11/16/16 10:01 Blood Type B POSITIVE 11/19/16 17:50 Antibody Screen Positive 11/19/16 17:50 Antibody Identification Anti-E 11/19/16 17:50 Crossmatch See Detail 11/19/16 17:50
--- NOTE | 2016-11-21 13:17 | Progress Note ---
Assessment and Plan - Patient Problems (1) Abdominal pain Current Visit: Yes Status: Acute Qualifiers: Abdominal location: A Plan to address problem: History of gastroparesis/GERD. Improving. Question discharge planning (2) ESRD on hemodialysis Current Visit: Yes Status: Acute Plan to address problem: Volume status and electrolytes are stable. Hemodialysis on Tuesday (3) GI bleed Current Visit: Yes Status: Acute Qualifiers: GI bleed type/associated pathology: G Gastritis type: G Plan to address problem: Acute blood loss anemia. Hemoglobin improving. Follow-up hemoglobin. Gastroenterology input appreciated (4) Anemia in chronic kidney disease Current Visit: No Status: Acute Plan to address problem: Follow-up hemoglobin. Continue erythropoietin on dialysis (5) Diabetes mellitus Current Visit: No Status: Acute Qualifiers: Diabetes mellitus type: D Diabetes mellitus complication status: D Diabetes mellitus complication detail: D Diabetic retinopathy severity: D Proliferative retinopathy type: P Diabetes mellitus macular edema: D Diabetes mellitus ferry terminal agent insulin use: D Laterality: L Chronic kidney disease stage: C Plan to address problem: Blood sugar management by primary attending (6) Hypertension Current Visit: No Status: Resolved Qualifiers: Hypertension type: H Plan to address problem: Follow-up blood pressure on current medications Subjective Date of service: 11/21/16 Principal diagnosis: UGI bleeding Interval history: Patient seen lying in bed. She has no complaints today. She has no vomiting or hematemesis. She is feeling better Objective - Exam Narrative Exam: Young -[place] female lying in bed in no acute distress CVS S1-S2 regular rate rhythm without murmur, rub or gallop Chest clear to auscultation Abdomen soft nondistended mild epigastric tenderness, no organomegaly no bruit bowel sounds present Extremities no edema no cyanosis or clubbing Neuro awake, alert oriented x3 no gross deficit - Vital Signs Vital signs: Vital Signs - 12hr 11/21/16 11/21/16 11/21/16 04:21 04:51 05:54 Temperature 98.2 F Pulse Rate Pulse Rate [ 85 Apical] Pulse Rate [ Left Radial] Respiratory 20 20 20 Rate Blood Pressure Blood Pressure 130/69 [Left Arm] O2 Sat by Pulse 92 Oximetry 11/21/16 11/21/16 11/21/16 05:57 08:31 08:37 Temperature Pulse Rate 85 80 Pulse Rate [ Apical] Pulse Rate [ Left Radial] Respiratory Rate Blood Pressure 130/69 130/69 Blood Pressure [Left Arm] O2 Sat by Pulse 97 Oximetry 11/21/16 11/21/16 10:00 10:49 Temperature 98.3 F Pulse Rate 80 Pulse Rate [ Apical] Pulse Rate [ 86 Left Radial] Respiratory 16 Rate Blood Pressure 133/67 Blood Pressure 133/67 [Left Arm] O2 Sat by Pulse 100 95 Oximetry - Lab 11/21/16 04:10 11/21/16 04:10 Most recent lab results Calcium 7.3 mg/dL (8.4-10.2) L 11/21/16 04:10
--- NOTE | 2016-11-21 13:50 | Gastroenterology Progress Note ---
Assessment and Plan GI: continue current meds and diet - plan egd tomorrow - will follow Subjective Date of service: 11/21/16 Principal diagnosis: UGI bleeding Interval history: - no signs bleeding overnight Objective - Constitutional Vitals: Temp Pulse Resp BP Pulse Ox 98.1 F 78 14 128/67 97 11/21/16 13:36 11/21/16 13:36 11/21/16 13:36 11/21/16 13:36 11/21/16 13:36 General appearance: no acute distress - Respiratory Respiratory: bilateral: CTA - Cardiovascular Rhythm: regular Heart Sounds: Present: S1 & S2 - Gastrointestinal General gastrointestinal: Present: soft, non-tender - Labs CBC & Chem 7: 11/21/16 04:10 11/21/16 04:10 Labs: Laboratory Results - last 24 hr 11/20/16 11/20/16 11/21/16 15:00 22:42 04:10 WBC 6.3 RBC 2.44 L Hgb 7.3 L 7.5 L Hct 21.7 L 21.6 L MCV 89 MCH 31 MCHC 35 H RDW 15.5 H Plt Count 180 Lymph % (Auto) 10.0 L [place] % (Auto) 9.8 H Eos % (Auto) 3.2 Baso % (Auto) 0.5 Lymph # 0.6 L [place] # 0.6 Eos # 0.2 Baso # 0.0 Seg Neutrophils % 76.5 H Seg Neutrophils # 4.8 Sodium Potassium Chloride Carbon Dioxide Anion Gap BUN Creatinine Estimated GFR BUN/Creatinine Ratio Glucose POC Glucose 114 H Calcium 11/21/16 04:10 WBC RBC Hgb Hct MCV MCH MCHC RDW Plt Count Lymph % (Auto) [place] % (Auto) Eos % (Auto) Baso % (Auto) Lymph # Sw[place] # Eos # Baso # Seg Neutrophils % Seg Neutrophils # Sodium 136 L Potassium 4.2 Chloride 94.6 L Carbon Dioxide 27 Anion Gap 19 BUN 36 H Creatinine 6.4 H Estimated GFR 9 BUN/Creatinine Ratio 5.62 Glucose 121 H POC Glucose Calcium 7.3 L
[2016-11-22] MEDS: ATIVAN IV PRN ×2 (02:00→05:49)
[2016-11-22] MEDS: DILAUDID IV PRN ×3 (02:00→10:53)
[2016-11-22] MEDS: NORMODYNE PO SCH (05:41)
[2016-11-22] MEDS: BENADRYL IV PRN ×2 (05:49)
[2016-11-22 06:11] LABS: Basophils % (Auto) 0.5 % (0.0-1.8); Eosinophils % (Auto) 4.6 % (0.0-4.3); Hematocrit 22.5 % (30.3-42.9); Hemoglobin 7.7 gm/dl (10.1-14.3); Mean Corpuscular HGB Conc 34 % (30-34); Mean Corpuscular Hemoglobin 30 pg (28-32); Mean Corpuscular Volume 88 fl (79-97); Platelet Count 206 K/mm3 (140-440); Red Blood Count 2.55 M/mm3 (3.65-5.03); White Blood Count 6.6 K/mm3 (4.5-11.0)
[2016-11-22 06:31] LABS: BUN/Creatinine Ratio 5.8; Calcium 7.2 mg/dL (8.4-10.2); Chloride 91.5 mmol/L (98-107); Potassium 4.7 mmol/L (3.6-5.0)
[2016-11-22] MEDS ORDERED: WATER FOR IRRIG STERILE IR ONE (07:46)
[2016-11-22] MEDS ORDERED: NACL 0.9% 1000 ML 1,000 ML IV SCH (08:00)
--- NOTE | 2016-11-22 08:15 | Anesthesia Day of Surgery ---
Anesthesia Day of Surgery - Day of Surgery Patient Examined: Yes Patient H&P Reviewed: Yes Patient is NPO: Yes Beta Blockers: Yes
[2016-11-22] MEDS ORDERED: DIPRIVAN 10 MG/ML IV ONE (08:43)
[2016-11-22] MEDS ORDERED: XYLOCAINE MPF 2% ONE (09:05)
--- NOTE | 2016-11-22 09:17 | Post Operative Note ---
Pre-op diagnosis: gi bleed Post-op diagnosis: same Findings: EGD: medium hiatal hernia - food stomach - cratered white based ulcers w/o bleeding stigmata x 2 - negative other Procedure: EGD Anesthesia: MAC Surgeon: CRISTINA ANDERSON Estimated blood loss: none Pathology: none Condition: stable Disposition: floor
[2016-11-22] MEDS ORDERED: FLUSH HEPARIN IV ONE ×2 (09:50→16:00)
--- NOTE | 2016-11-22 09:57 | Vascular Lab Report ---
MISCELLANEOUS VESSEL IDENTIFICATION: The arteriovenous access was identified in the right arm and under real-time ultrasound guidance was cannulated. IMPRESSION: Successful ultrasound guided cannulation of the arteriovenous access site.
--- NOTE | 2016-11-22 10:41 | Post Anesthesia Evaluation ---
- Post Anesthesia Evaluation Patient Participated: Yes Airway Patent: Yes Stable Respiratory Function: Yes Nausea/Vomiting: No Temp > 96.8F: Yes Pain Manageable: Yes Adequeate Hydration: Yes Anesthesia Complications: No
[2016-11-22] MEDS ORDERED: PROTONIX PO SCH (11:00)
--- NOTE | 2016-11-22 11:47 | Discharge Summary ---
Providers - Providers Date of Admission: 11/16/16 12:49 Date of discharge: 11/22/16 Attending physician: REKHA LANTIGUA 11/16/16 13:10 Consult to Physician [CONS] Routine Consulting Provider: INA PICKETT Reason For Exam: acute active ugib Place consult to:: Piyush SOLO Notified:: yes Phone number called:: overhead page Was contact made?: Yes If yes, spoke with:: Dr. Pickett Time called:: 13:20 11/21/16 12:02 Consult to Wound/ET Nurse [CONS] Routine Reason For Exam: wound eval BLL great toe eschar Primary care physician: FUDGE CANDY MAKER Hospitalization Reason for admission: vomiting blood Condition: Serious Pertinent studies: EGD: medium hiatal hernia - food stomach - cratered white based ulcers w/o bleeding stigmata x 2 - negative other Hospital course: Miss Brownlee presented to the ER with hematemeseis with severe anemia due to ulcers; she was transfused several units of PRBC and seen by the blanket cutting machine operator; she had EGD done; she was also seen by the green meat grader and had routine HD done; she was cleared by blanket cutting machine operator for discharge condition at discharge-stable 31 minutes spent on discharge Disposition: DISCHARGED TO HOME OR SELFCARE - Discharge Diagnoses (1) Anemia requiring transfusions Status: Acute (2) ESRD on hemodialysis Status: Acute (3) GI bleed Status: Acute Qualifiers: GI bleed type/associated pathology: G Gastritis type: G (4) Accelerated hypertension Status: Acute (5) Anemia in chronic kidney disease Status: Acute Core Measure Documentation - Palliative Care Palliative Care/ Comfort Measures: Not Applicable - Core Measures Any of the following diagnoses?: none Exam - Constitutional Vitals: Temp Pulse Resp BP Pulse Ox 98.4 F 82 22 178/98 97 11/22/16 09:16 11/22/16 09:46 11/22/16 09:46 11/22/16 09:46 11/22/16 09:46 General appearance: Present: no acute distress, well-nourished - EENT Eyes: Present: PERRL, EOM intact. Absent: scleral icterus, conjunctival injection ENT: hearing intact, clear oral mucosa, no oropharyngeal erythema, no poor dentition - Neck Neck: Present: supple, normal ROM. Absent: enlarged thyroid, masses or JVD - Respiratory Respiratory effort: normal Respiratory: negative: diminished, rales, rhonchi, wheezing - Cardiovascular Rhythm: regular Heart Sounds: Present: S1 & S2. Absent: gallop - Extremities Extremities: no ischemia, pulses intact, pulses symmetrical Peripheral Pulses: within normal limits - Abdominal General gastrointestinal: Present: soft, non-tender, non-distended, normal bowel sounds Female genitourinary: Present: deferred - Rectal Rectal Exam: deferred - Integumentary Integumentary: Present: clear - Musculoskeletal Musculoskeletal: strength equal bilaterally - Psychiatric Psychiatric: appropriate mood/affect, intact judgment & insight, cooperative - Neurologic Neurologic: CNII-XII intact, moves all extremities Plan Activity: advance as tolerated Diet: renal Follow up with: PRIMARY CAREMD [Primary Care Provider] - 3-5 Days JOSE GARCIA MD [Staff Physician] - 7 Days Prescriptions: Pantoprazole [Protonix TAB] 40 mg PO BID #28 tablet
--- NOTE | 2016-11-22 13:39 | Progress Note ---
Assessment and Plan - Patient Problems (1) Abdominal pain Current Visit: Yes Status: Chronic Qualifiers: Abdominal location: epigastric Qualified Code(s): R10.13 - Epigastric pain Plan to address problem: pt with h/o gastroparesis, currently without acute pain. (2) ESRD on hemodialysis Current Visit: Yes Status: Acute Plan to address problem: continue HD on M/W/F schedule. stable for D/C after HD today. (3) GI bleed Current Visit: Yes Status: Acute Qualifiers: GI bleed type/associated pathology: G Gastritis type: G Plan to address problem: monitor Hb, transfuse if Hb < 7. continue EPO w/ HD for anemia of ESRD (4) Gastroparesis Current Visit: Yes Status: Acute Plan to address problem: continue reglan prn (5) Accelerated hypertension Current Visit: No Status: Acute Plan to address problem: BP improved, will monitor on current meds and adjust UF as indicated (6) Diabetes mellitus Current Visit: No Status: Acute Qualifiers: Diabetes mellitus type: D Diabetes mellitus complication status: D Diabetes mellitus complication detail: D Diabetic retinopathy severity: D Proliferative retinopathy type: P Diabetes mellitus macular edema: D Diabetes mellitus terminal worker insulin use: D Laterality: L Chronic kidney disease stage: C Plan to address problem: glucose control as per primary attending Subjective Date of service: 11/22/16 Principal diagnosis: UGI bleeding Interval history: Patient seen and examined during HD, in no acute distress. Objective - Vital Signs Vital signs: Vital Signs - 12hr 11/22/16 11/22/16 11/22/16 01:39 02:00 02:30 Temperature 98.8 F Pulse Rate Pulse Rate [ 82 Right Radial] Respiratory 20 18 20 Rate Blood Pressure Blood Pressure 117/61 [Left Arm] O2 Sat by Pulse 90 Oximetry 11/22/16 11/22/16 11/22/16 05:41 05:47 08:13 Temperature 98.6 F 98.6 F Pulse Rate 82 82 Pulse Rate [ 82 Right Radial] Respiratory 18 26 H Rate Blood Pressure 147/79 171/90 Blood Pressure 147/79 [Left Arm] O2 Sat by Pulse 97 92 Oximetry 11/22/16 11/22/16 11/22/16 08:24 09:16 09:31 Temperature 98.6 F 98.4 F Pulse Rate 82 81 81 Pulse Rate [ Right Radial] Respiratory 26 H 16 20 Rate Blood Pressure 171/90 171/98 177/97 Blood Pressure [Left Arm] O2 Sat by Pulse 92 96 96 Oximetry 11/22/16 11/22/16 09:46 12:45 Temperature Pulse Rate 82 81 Pulse Rate [ Right Radial] Respiratory 22 Rate Blood Pressure 178/98 Blood Pressure [Left Arm] O2 Sat by Pulse 97 Oximetry - General Appearance General appearance: well-developed, well-nourished, appears stated age EENT: ATNC, PERRL, mucous membranes moist Neck: no JVD Respiratory: Present: Clear to Ascultation Cardiology: regular, S1S2 Gastrointestinal: normal Integumentary: no rash, other (no edema ) Neurologic: no focal deficit, alert and oriented x3, strength 5/5, CN 3-12 intact Psychiatric: mood/affect appropriate, cooperative - Lab 11/22/16 05:54 11/22/16 05:54 Most recent lab results Calcium 7.2 mg/dL (8.4-10.2) L 11/22/16 05:54
--- NOTE | 2016-11-22 15:09 | Progress Note ---
Assessment and Plan Imp: 1. PUD/UGIB 2. Acute blood loss anemia 3. Gastroparesis 2/2 DM 4. Chronic respiratory failure, hypoxia on home O2 5. Pulm HTN 6. ESRD Rec: 1. Has home O2 2. Needs to f/u with her loading machine adjuster Dr. Sotelo re: pulm HTN 3. Can be discharged from our standpoint; will sign off but please call with questions, or if new issues arise Plan of care reviewed w/ patient, she understands/agrees Subjective Date of service: 11/22/16 Principal diagnosis: UGI bleeding Interval history: No events. C/o abdominal pain. No vomiting, bleeding. SOB at baseline. Has home O2. Active Medications Clonidine HCl (Catapres) 0.2 mg PO TID ON LICENSE OF [facility] Last Admin: 11/21/16 21:02 Dose: 0.2 mg Diphenhydramine HCl (Benadryl) 25 mg IV Q6H PRN PRN Reason: Itching Last Admin: 11/22/16 05:49 Dose: 25 mg Hydralazine HCl (Apresoline) 10 mg IV Q4HR PRN PRN Reason: HTN SBP>=180 OR CELENA>=110 Last Admin: 11/19/16 12:51 Dose: 10 mg Hydromorphone HCl (Dilaudid) 1 mg IV Q4H PRN PRN Reason: Pain Last Admin: 11/22/16 10:53 Dose: 1 mg Sodium Chloride (Nacl 0.9% 1000 Ml) 100 mls @ 999 mls/hr IV CELENA PRN PRN Reason: Hypotension Sodium Chloride (Nacl 0.9% 1000 Ml) 1,000 mls @ 50 mls/hr IV DIRECT GABRIELLA Stop: 11/22/16 16:00 Last Admin: 11/22/16 08:42 Dose: 50 mls/hr Labetalol HCl (Normodyne) 10 mg IV Q4H PRN PRN Reason: HTN SBP>=180 Last Admin: 11/18/16 20:28 Dose: 10 mg Labetalol HCl (Normodyne) 100 mg PO Q8HR GABRIELLA Last Admin: 11/22/16 05:41 Dose: 100 mg Lorazepam (Ativan) 1 mg IV Q3H PRN PRN Reason: Agitation Last Admin: 11/22/16 05:49 Dose: 1 mg Losartan Potassium (Cozaar) 100 mg PO QDAY ON LICENSE OF [facility] Last Admin: 11/21/16 10:00 Dose: 100 mg Nifedipine (Procardia Xl) 90 mg PO BID ON LICENSE OF [facility] Last Admin: 11/21/16 22:00 Dose: 90 mg Ondansetron HCl (Zofran) 4 mg IV Q4H PRN PRN Reason: Nausea And Vomiting Last Admin: 11/20/16 08:20 Dose: 4 mg Pantoprazole Sodium (Protonix) 40 mg PO BID ON LICENSE OF [facility] Objective Vital Signs - 12hr 11/22/16 11/22/16 11/22/16 05:41 05:47 08:13 Temperature 98.6 F 98.6 F Pulse Rate 82 82 Pulse Rate [ 82 Right Radial] Respiratory 18 26 H Rate Blood Pressure 147/79 171/90 Blood Pressure 147/79 [Left Arm] O2 Sat by Pulse 97 92 Oximetry 11/22/16 11/22/16 11/22/16 08:24 09:16 09:31 Temperature 98.6 F 98.4 F Pulse Rate 82 81 81 Pulse Rate [ Right Radial] Respiratory 26 H 16 20 Rate Blood Pressure 171/90 171/98 177/97 Blood Pressure [Left Arm] O2 Sat by Pulse 92 96 96 Oximetry 11/22/16 11/22/16 11/22/16 09:46 10:20 10:30 Temperature 98.4 F Pulse Rate 82 81 81 Pulse Rate [ Right Radial] Respiratory 22 20 Rate Blood Pressure 178/98 183/99 183/99 Blood Pressure [Left Arm] O2 Sat by Pulse 97 Oximetry 11/22/16 11/22/16 11/22/16 10:45 11:00 11:15 Temperature Pulse Rate 83 83 82 Pulse Rate [ Right Radial] Respiratory Rate Blood Pressure 178/95 185/93 193/98 Blood Pressure [Left Arm] O2 Sat by Pulse Oximetry 11/22/16 11/22/16 11/22/16 11:30 11:45 12:00 Temperature Pulse Rate 81 81 80 Pulse Rate [ Right Radial] Respiratory Rate Blood Pressure 179/91 174/88 160/82 Blood Pressure [Left Arm] O2 Sat by Pulse Oximetry 11/22/16 11/22/16 11/22/16 12:15 12:30 12:45 Temperature Pulse Rate 80 80 79 Pulse Rate [ Right Radial] Respiratory Rate Blood Pressure 150/78 144/77 153/79 Blood Pressure [Left Arm] O2 Sat by Pulse Oximetry 11/22/16 11/22/16 11/22/16 13:00 13:15 13:30 Temperature Pulse Rate 81 80 81 Pulse Rate [ Right Radial] Respiratory Rate Blood Pressure 136/69 120/68 111/56 Blood Pressure [Left Arm] O2 Sat by Pulse Oximetry Constitutional: no acute distress Eyes: non-icteric ENT: oropharynx moist Neck: supple Effort: normal Ascultation: Bilateral: clear Cardiovascular: regular rate and rhythm (no mrg) Gastrointestinal: normoactive bowel sounds, soft, non-tender, non-distended Integumentary: normal Extremities: no cyanosis, no edema, pink and warm Neurologic: normal mental status, non-focal exam, pupils equal and round Psychiatric: mood appropriate, affect normal CBC and BMP: 11/22/16 05:54 11/22/16 05:54 ABG, PT/INR, D-dimer: PT/INR, D-dimer PT 14.3 Sec. (12.2-14.9) 11/17/16 17:30 INR 1.12 (0.87-1.13) 11/17/16 17:30 Abnormal lab findings: Abnormal Labs 11/16/16 11/16/16 11/16/16 13:45 16:30 22:06 RBC Hgb Hct MCHC RDW Lymph % (Auto) Dillon % (Auto) Eos % (Auto) Lymph # Seg Neutrophils % APTT Sodium Chloride BUN Creatinine Glucose POC Glucose 144 H 115 H Calcium ALT Total Protein Albumin Crossmatch See Detail 11/17/16 11/17/16 11/17/16 04:00 06:29 08:30 RBC 1.91 L Hgb 5.4 L* Hct 16.0 L* MCHC RDW 15.3 H Lymph % (Auto) Dillon % (Auto) Eos % (Auto) Lymph # Seg Neutrophils % APTT Sodium Chloride 96.9 L BUN 58 H Creatinine 5.6 H Glucose 191 H POC Glucose 151 H Calcium 7.5 L ALT Total Protein Albumin Crossmatch 11/17/16 11/17/16 11/17/16 11:37 17:30 17:30 RBC 2.27 L Hgb 6.9 L Hct 19.9 L* MCHC 35 H RDW 16.3 H Lymph % (Auto) Dillon % (Auto) 8.1 H Eos % (Auto) Lymph # Seg Neutrophils % 76.1 H APTT 20.4 L Sodium Chloride BUN Creatinine Glucose POC Glucose 141 H Calcium ALT Total Protein Albumin Crossmatch 11/17/16 11/18/16 11/18/16 23:20 04:30 04:30 RBC 2.48 L Hgb 7.4 L Hct 21.5 L MCHC 35 H RDW 15.5 H Lymph % (Auto) 11.2 L Dillon % (Auto) Eos % (Auto) Lymph # 0.8 L Seg Neutrophils % 81.3 H APTT Sodium Chloride 96.1 L BUN 38 H Creatinine 3.9 H Glucose 163 H POC Glucose 156 H Calcium 8.1 L ALT Total Protein Albumin Crossmatch 11/18/16 11/18/16 11/18/16 07:50 13:07 15:49 RBC Hgb Hct MCHC RDW Lymph % (Auto) Dillon % (Auto) Eos % (Auto) Lymph # Seg Neutrophils % APTT Sodium Chloride BUN Creatinine Glucose POC Glucose 146 H 127 H 135 H Calcium ALT Total Protein Albumin Crossmatch 11/19/16 11/19/16 11/19/16 08:28 08:30 12:49 RBC 2.25 L Hgb 6.8 L Hct 19.6 L* MCHC RDW 16.0 H Lymph % (Auto) Dillon % (Auto) Eos % (Auto) Lymph # Seg Neutrophils % APTT Sodium Chloride BUN 53 H Creatinine 6.6 H D Glucose 134 H POC Glucose 138 H Calcium 8.0 L ALT Total Protein Albumin Crossmatch 11/19/16 11/20/16 11/20/16 17:50 04:00 04:00 RBC 2.65 L Hgb 8.0 L Hct 23.3 L MCHC 35 H RDW Lymph % (Auto) 12.3 L Dillon % (Auto) 7.8 H Eos % (Auto) Lymph # 0.9 L Seg Neutrophils % 77.8 H APTT Sodium Chloride 96.1 L BUN 24 H Creatinine 4.3 H Glucose POC Glucose Calcium 7.8 L ALT < 5 L Total Protein 5.8 L Albumin 3.3 L Crossmatch See Detail 11/20/16 11/20/16 11/21/16 15:00 22:42 04:10 RBC 2.44 L Hgb 7.3 L 7.5 L Hct 21.7 L 21.6 L MCHC 35 H RDW 15.5 H Lymph % (Auto) 10.0 L Dillon % (Auto) 9.8 H Eos % (Auto) Lymph # 0.6 L Seg Neutrophils % 76.5 H APTT Sodium Chloride BUN Creatinine Glucose POC Glucose 114 H Calcium ALT Total Protein Albumin Crossmatch 11/21/16 11/21/16 11/22/16 04:10 22:16 05:54 RBC 2.55 L Hgb 7.7 L Hct 22.5 L MCHC RDW Lymph % (Auto) 11.6 L Dillon % (Auto) 9.1 H Eos % (Auto) 4.6 H Lymph # 0.8 L Seg Neutrophils % 74.2 H APTT Sodium 136 L Chloride 94.6 L BUN 36 H Creatinine 6.4 H Glucose 121 H POC Glucose 127 H Calcium 7.3 L ALT Total Protein Albumin Crossmatch 11/22/16 05:54 RBC Hgb Hct MCHC RDW Lymph % (Auto) Dillon % (Auto) Eos % (Auto) Lymph # Seg Neutrophils % APTT Sodium 134 L Chloride 91.5 L BUN 47 H Creatinine 8.1 H Glucose 131 H POC Glucose Calcium 7.2 L ALT Total Protein Albumin Crossmatch
[2016-11-22 15:36] VITALS: BP 129/58
--- NOTE | 2016-11-22 21:44 | Operative Report ---
PROCEDURE: Esophagogastroduodenoscopy. INDICATION: Upper GI bleed. MEDICATIONS: Propofol per SPECIAL DELIVERY CLERK. COMPLICATIONS: None. DESCRIPTION OF PROCEDURE: The patient brought to procedure suite. The patient had the procedure discussed with her at length. All risks, complications, and benefits discussed after which the patient signed for the procedure to perform. The patient was placed in left lateral decubitus position. Mouth block was placed in the patient's oral cavity. After adequate sedation medication as above, endoscope was introduced into the mouth and brought to the level of the second portion of duodenum. Retroflexion view performed. The patient's vital signs remained stable throughout the procedure. FINDINGS: There was noted to be medium hiatal hernia at GE junction. The esophagus otherwise appeared to be normal. There were two large ulcers about 2 cm to 2.5 cm in size noted in the gastric antrum. Both were wide based and created by Dr. Hernandez. No bleeding stigmata. No clips were noted. There was food material noted throughout the stomach. The duodenum appeared normal. Retroflexion showed no other pathology. The patient tolerated the procedure well. No complications during the procedure. IMPRESSION: 1. Hiatal hernia. 2. Otherwise, normal esophagus. 3. Benign stomach. 4. Large ulcers without bleeding stigmata noted in the gastric antrum, but no intervention necessary. 5. Otherwise benign esophagogastroduodenoscopy. RECOMMENDATIONS: 1. Continue current medication and diet. 2. Okay to discharge from GI standpoint. 3. Follow up as an outpatient. JOB# [id number] [facility]
== END 2016-11-22 15:50 | disposition home or self-care (01) | DRG 252 ==
LOC: ED 09:20 → CC1 12:49 → 4A 11-20 22:37
PROVIDERS: ADMIT Internal Medicine; ATTEND Hospitalist
PROC: 5A1D60Z (ICD-10-PCS; 2016-11-16)
PROC: 30233N1 Transfusion of Nonautologous Red Blood Cells into Peripheral Vein, Percutaneous Approach (ICD-10-PCS; 2016-11-16)
PROC: 04L23DZ Occlusion of Gastric Artery with Intraluminal Device, Percutaneous Approach (ICD-10-PCS; 2016-11-18)
PROC: B4121ZZ Fluoroscopy of Hepatic Artery using Low Osmolar Contrast (ICD-10-PCS; 2016-11-18)
PROC: B41F1ZZ Fluoroscopy of Right Lower Extremity Arteries using Low Osmolar Contrast (ICD-10-PCS; 2016-11-18)
PROC: B41B1ZZ Fluoroscopy of Other Intra-Abdominal Arteries using Low Osmolar Contrast (ICD-10-PCS; 2016-11-18)
PROC: 05753ZZ Dilation of Right Subclavian Vein, Percutaneous Approach (ICD-10-PCS; principal; 2016-11-19)
PROC: 057B3ZZ Dilation of Right Basilic Vein, Percutaneous Approach (ICD-10-PCS; 2016-11-19)
PROC: B5161ZZ Fluoroscopy of Right Subclavian Vein using Low Osmolar Contrast (ICD-10-PCS; 2016-11-19)
PROC: B51M1ZZ Fluoroscopy of Right Upper Extremity Veins using Low Osmolar Contrast (ICD-10-PCS; 2016-11-19)
PROC: B4141ZZ Fluoroscopy of Superior Mesenteric Artery using Low Osmolar Contrast (ICD-10-PCS; 2016-11-19)
PROC: 0DJ08ZZ Inspection of Upper Intestinal Tract, Via Natural or Artificial Opening Endoscopic (ICD-10-PCS; 2016-11-22)
DX: T82.838A Hemorrhage due to vascular prosthetic devices, implants and grafts, initial encounter (principal); N18.6 End stage renal disease; I13.2 Hypertensive heart and chronic kidney disease with heart failure and with stage 5 chronic kidney disease, or end stage renal disease; D62 Acute posthemorrhagic anemia; J81.1 Chronic pulmonary edema; J96.11 Chronic respiratory failure with hypoxia; K31.84 Gastroparesis; E11.22 Type 2 diabetes mellitus with diabetic chronic kidney disease; I50.9 Heart failure, unspecified; J44.9 Chronic obstructive pulmonary disease, unspecified; J45.909 Unspecified asthma, uncomplicated; E11.43 Type 2 diabetes mellitus with diabetic autonomic (poly)neuropathy; F17.200 Nicotine dependence, unspecified, uncomplicated; I25.10 Atherosclerotic heart disease of native coronary artery without angina pectoris; E11.319 Type 2 diabetes mellitus with unspecified diabetic retinopathy without macular edema; F41.9 Anxiety disorder, unspecified; F99 Mental disorder, not otherwise specified; I16.0 Hypertensive urgency; D63.1 Anemia in chronic kidney disease; I27.2 Other secondary pulmonary hypertension; K44.9 Diaphragmatic hernia without obstruction or gangrene; K25.9 Gastric ulcer, unspecified as acute or chronic, without hemorrhage or perforation; Z88.0 Allergy status to penicillin; Z88.6 Allergy status to analgesic agent; Z88.8 Allergy status to other drugs, medicaments and biological substances; Z99.2 Dependence on renal dialysis; Z98.51 Tubal ligation status; Z98.891 History of uterine scar from previous surgery; Z90.49 Acquired absence of other specified parts of digestive tract; Z82.49 Family history of ischemic heart disease and other diseases of the circulatory system; Z85.118 Personal history of other malignant neoplasm of bronchus and lung; Z83.3 Family history of diabetes mellitus; Z79.4 Long term (current) use of insulin
CPT/HCPCS: 36245; 36415; 36902; 37242; 75726; 76937; 80048; 80053; 82962; 83690; 84703; 85007; 85014; 85018; 85025; 85027; 85610; 85730; 86850; 86870; 86900; 86901; 86902; 86922; 94760; 96374; 96375; C1725; C1751; C1760; C1769; C1887; C1894; C9113; J0360; J0690; J1170; J1200; J1630; J1642; J1644; J2060; J2250; J2405; J2597; J2704; J2765; J3010; J3370; J7030; J7040; P9016; Q9967

== ENCOUNTER 2016-11-29 06:34 | Emergency (ER) | payer MEDICARE ==
[2016-11-29] MEDS ORDERED: DILAUDID IV ONE ×3 (11:21→14:46)
[2016-11-29] MEDS ORDERED: ZOFRAN IV ONE (11:21)
[2016-11-29] MEDS ORDERED: BENADRYL IV ONE ×2 (11:43→14:46)
[2016-11-29 11:49] LABS: Basophils % (Auto) 0.7 % (0.0-1.8); Eosinophils % (Auto) 0.5 % (0.0-4.3); Hematocrit 25.5 % (30.3-42.9); Hemoglobin 8.6 gm/dl (10.1-14.3); Mean Corpuscular HGB Conc 34 % (30-34); Mean Corpuscular Hemoglobin 30 pg (28-32); Mean Corpuscular Volume 90 fl (79-97); Platelet Count 302 K/mm3 (140-440); Red Blood Count 2.85 M/mm3 (3.65-5.03); Red Cell Distribution Width 15.3 % (13.2-15.2); White Blood Count 8.9 K/mm3 (4.5-11.0)
--- NOTE | 2016-11-29 12:13 | Emergency Department Report ---
HPI - General Chief Complaint: Abdominal Pain Time Seen by Provider: 11/29/16 10:14 - HPI HPI: This is a 36-year-old -[place]onegas[place] female presents emergency Department with complaint of a 12 hour history of generalized abdominal pain, nausea and vomiting that she believes is an exacerbation of her gastroparesis. The patient was recently here for similar symptoms but got some resolution of her pain. She says she went to [place] to watch a family members am[place] and the pain started again out of nowhere. She has been taking her home pain medication without any relief. She was on her way to dialysis but could not make it there. Her primary care doctor is Eladio ferreira, her sales agent casualty insurance is Dr. Trevino and she has a rf technician but cannot name. She also has a past medical history of asthma, CHF, COPD, diabetes, CHF and she goes to dialysis on Tuesday, Tuesday and Tuesday. She denies any fever, chest pain, shortness of breath. No recent travel or sick contacts at home. ED Past Medical Hx - Past Medical History Hx Hypertension: Yes (CHF) Hx Congestive Heart Failure: Yes Hx Diabetes: Yes Hx Renal Disease: Yes (HD Tuesday) Hx Arthritis: Yes Hx Asthma: Yes Hx COPD: Yes Hx HIV: No Additional medical history: gastroporesis - Surgical History Hx Cholecystectomy: Yes Additional Surgical History: c section, tubal ligation. fistula right arm - Social History Smoking Status: Never Smoker Substance Use Type: None - Medications Home Medications: Home Medications Medication Instructions Recorded Confirmed Last Taken Type Labetalol [Normodyne TAB] 100 mg PO Q8HR #90 tablet 08/20/16 11/21/16 10/13/16 Rx Losartan [Cozaar] 100 mg PO QDAY #30 tablet 08/20/16 11/21/16 10/13/16 Rx Metoclopramide [Reglan ORAL LIQ] 10 mg PO TID 30 Days 08/21/16 11/21/16 Rx NIFEdipine XL [Procardia Xl] 90 mg PO BID #60 tablet 08/21/16 11/21/16 10/13/16 Rx HYDROcodone/APAP 5-325 [Julian 1 each PO Q8H PRN #10 tablet 09/11/16 11/21/16 Rx 5-325 mg TAB] cloNIDine [Catapres] 0.2 mg PO TID #90 tablet 09/11/16 11/16/16 11/16/16 07:00 Rx Pantoprazole [Protonix TAB] 40 mg PO BID #28 tablet 11/22/16 Unknown Rx ED Review of Systems ROS: Stated complaint: ABD PAIN Other details as noted in HPI Comment: All other systems reviewed and negative Constitutional: denies: chills, fever Eyes: denies: eye pain, eye discharge, vision change ENT: denies: ear pain, throat pain Respiratory: denies: cough, shortness of breath, wheezing Cardiovascular: denies: chest pain, palpitations Gastrointestinal: abdominal pain, nausea, vomiting Genitourinary: denies: urgency, dysuria, discharge Musculoskeletal: denies: back pain, joint swelling, arthralgia Skin: denies: rash, lesions Neurological: denies: headache, weakness, paresthesias Physical Exam - Physical Exam Vital Signs: Vital Signs 11/29/16 11/29/16 11/29/16 06:57 10:16 10:20 Temperature 98.7 F Pulse Rate 95 H Respiratory Rate Blood Pressure 204/120 198/101 O2 Sat by Pulse 97 100 100 Oximetry 11/29/16 11/29/16 11/29/16 10:22 10:30 11:42 Temperature Pulse Rate Respiratory 16 16 Rate Blood Pressure 197/102 O2 Sat by Pulse 97 100 Oximetry Physical Exam: GENERAL: The patient is well-developed well-nourished. HEENT: Normocephalic. Atraumatic. Extraocular motions are intact. Patient has moist mucous membranes. Pupils equal reactive to light bilaterally. NECK: Supple. Trachea is midline. CHEST/LUNGS: Clear to auscultation. There is no respiratory distress noted. HEART/CARDIOVASCULAR: Regular. There is no tachycardia. There is no gallop rub or murmur. ABDOMEN: Abdomen is soft. Mild generalized tenderness to palpation of the abdomen. No guarding or rebound tenderness. Obese habitus. Patient has normal bowel sounds. There is no abdominal distention. SKIN: There is no rash. There is no edema. There is no diaphoresis. NEURO: The patient is awake, alert, and oriented. The patient is cooperative. The patient has no focal neurologic deficits. The patient has normal speech. MUSCULOSKELETAL: There is no tenderness or deformity. There is no limitation range of motion. There is no evidence of acute injury. ED Course Vital Signs 11/29/16 11/29/16 11/29/16 06:57 10:16 10:20 Temperature 98.7 F Pulse Rate 95 H Respiratory Rate Blood Pressure 204/120 198/101 O2 Sat by Pulse 97 100 100 Oximetry 11/29/16 11/29/16 11/29/16 10:22 10:30 11:42 Temperature Pulse Rate Respiratory 16 16 Rate Blood Pressure 197/102 O2 Sat by Pulse 97 100 Oximetry - Consultations Consultation #1: Poke with the patient's sales agent casualty insurance, Dr. Trevino, who agrees that the patient appears safe for discharge home at this time but he is going to set her up for dialysis tomorrow, first thing in the morning. He says that the patient needs to call the dialysis center first thing but he will go ahead and set her up for an appointment. 11/29/16 16:08 ED Medical Decision Making - Lab Data Result diagrams: 11/29/16 11:34 11/29/16 11:34 - Radiology Data Radiology results: report reviewed Andrew x-ray does not show any acute process including no signs of bowel obstruction or dilation. - Medical Decision Making 36-year-old female with a history of gastroparesis presents with abdominal pain , nausea and vomiting that she believes is an exacerbation of her gastroparesis. Patient also is end-stage renal disease on dialysis and missed her dialysis today to come in to be seen. Patient's labs are mostly unremarkable except for her chronic kidney disease but there is no hyperkalemia. Belly labs are normal including lipase, LFTs and bilirubin. Abdominal x-ray does not show any signs of obstruction or dilation or any acute process. She was given a few doses of pain medication and nausea medication and upon reevaluation she is greatly improved. I spoke with the sales agent casualty insurance who agrees that the patient appears safe for discharge home. She does have elevated blood pressure but has blood pressure medications to take and will improve with dialysis. The sales agent casualty insurance as getting her set up for dialysis first thing on Tuesday and the patient has been notified that she needs to call first thing in the morning. She will return to the ER with any worsening of her symptoms or any acute distress. - Differential Diagnosis gastroparesis, colitis, diverticulitis, food poisoning, Critical Care Time: No Critical care attestation.: If time is entered above; I have spent that time in minutes in the direct care of this critically ill patient, excluding procedure time. ED Disposition Clinical Impression: Gastroparesis due to DM, Anemia in chronic kidney disease, End-stage renal disease, Hypertensive urgency Abdominal pain Qualifiers: Abdominal location: generalized Qualified Code(s): R10.84 - Generalized abdominal pain Disposition: DISCHARGED TO HOME OR SELFCARE Is pt being admited?: No Condition: Stable Instructions: Chronic Kidney Disease (ED), Abdominal Pain (ED) Additional Instructions: Please follow-up with your rf technician in the next few days. I have spoken with your sales agent casualty insurance, Dr. Trevino, who is sitting you up for a dialysis appointment first thing in the morning, Tuesday. He would like you to call the dialysis center first thing tomorrow morning and make sure that you go to your appointment. Return to the emergency department with any acute distress. Referrals: PRIMARY MD YARITZA [Primary Care Provider] - 3-5 Days GAURAV TREVINO MD [Staff Physician] - 3-5 Days Time of Disposition: 16:10
[2016-11-29 12:40] LABS: Albumin 3.5 g/dL (3.9-5); Albumin/Globulin Ratio 1.1 %; BUN/Creatinine Ratio 5.29; Bilirubin,Total 0.3 mg/dL (0.1-1.2); Calcium 8.4 mg/dL (8.4-10.2); Chloride 95.2 mmol/L (98-107); Total Protein 6.8 g/dL (6.3-8.2)
--- NOTE | 2016-11-29 13:21 | XRay Report ---
Abdomen 2 views: History: Abdominal pain. Findings: No free intraperitoneal air. Stool in colon. No bowel distention or wall thickening. No radiopaque calculus or abnormal calcification. Impression: No bowel distention or obstruction
--- NOTE | 2016-11-29 14:05 | Admit Criteria Form ---
Admission Criteria Documentation: ABDOMINAL PAIN Clinical Indications for Admission to Inpatient Care (Place 'X' for any and all applicable criteria): Admission is indicated for ANY ONE of the following(1)(2)(3)(4)(5): [X ]I. Inpatient admission required rather than observation care (Also use Abdominal Pain: Observation Care, as appropriate) because of ANY ONE of the following: [ ]a) Severe pain requiring acute inpatient management [X ]b) Identification of etiology/finding that requires inpatient care (eg, aortic dissection, free air) [ ]c) Absent bowel sounds with complete ileus(6) [ ]d) Suspected toxic megacolon [ ]e) Severe electrolyte abnormalities requiring inpatient care [ ]f) High fever or infection requiring inpatient admission as indicated by ANY ONE of following(7)(8): [ ] i) Appropriate outpatient or observational care antimicrobial treatment unavailable, not effective, or not feasible [ ] ii) Documented bacteremia [ ] iii) Temperature > 104.9 degrees F (oral) [ ] iv) T >103.1 F (oral) or < 96.8 F(rectal) that does not respond to all emergency treatment measures [ ]g) Signs of intestinal obstruction [B] [ ]h) Hemodynamic instability [ ]i) IV fluid to replace significant ongoing losses (greater than 3 L/m2 per day) (12)(13) [ ]j) Percutaneous or open drainage (eg, abscess, biliary tract ) procedures [ ]k) Parenteral nutrition regimen that must be implemented on inpatient basis [ ]l) Other condition,treatment or monitoring requiring inpatient admission. [ ]II. Peritoneal signs present [ ]III. Surgery needed that cannot be performed on an ambulatory basis. [ ]IV. Evaluation requires patient to not eat or drink for extended period ( eg, more than 24 hours). [ ]V. Contraindications and/or Inappropriate clinical situations for Observational Care in patients with abdominal pain, when ANY ONE of the following is required: [ ]a) Thorough evaluation is required to prevent catastrophic events due to delays in diagnosing (e.g.Mesenteric ischemia) 1,3 [ ]b) Patient with severe pathology or with chronic symptoms unlikely to improve in the ED stay (3) [ ]. General contraindications and/or Inappropriate clinical situations for Observational Care in patients with abdominal pain, when ANY ONE of the following is required: [ ]a) Prediction of prolongation of LOS based on ANY ONE of the following may be considered as a contraindication for observational care 2, 3, 4, 5, 6, 7, 8, 9, 10, 11 [ ]i) Age > 65 yrs. [ ]ii) Patient arriving by ambulance [ ]iii) Patient with high acuity [ ]iv) Patient requiring vital sign monitoring [ ]v) Patient on IV medication [ ]b) Systolic blood pressures 180mmHg 3,12 [ ]c) Patient with altered mental status including delirium and other alteration of consciousness, (3) [ ]d) Patient whose discharge disposition will be to a [facility] home or rehabilitation home should not be managed in Emergency Department Observation Unit. CMS rule requires 3 days hospital stay before such placement.3,13 [ ]e) Patient with failure to thrive due to broad array of etiologies 3,16,17 [ ]f) Inability to ambulate 3,14 Extended stay beyond goal length of stay may be needed for(2)(3): [ ]a) Persistent abdominal pain with suspected intra-abdominal process [ ]b) Diagnosed condition requiring continued stay (e.g., pancreatitis, complicated diverticulitis) [ ]c) Surgery (e.g., colectomy) The original [employer] content created by [employer] has been revised. The portions of the content which have been revised are identified through the use of italic text or in bold, and [email or web address] has neither reviewed nor approved the modified material.All other unmodified content is copyright [employer] Please see references footnoted in the original [employer] edition 2016
[2016-11-29] MEDS ORDERED: APRESOLINE IV ONE (14:46)
[2016-11-29 15:48] VITALS: BP 177/87
[2016-11-29] MEDS ORDERED: FLUSH HEPARIN IV ONE (16:07)
== END 2016-11-29 16:10 | disposition home or self-care (01) ==
LOC: ED 06:34
DX: E11.43 Type 2 diabetes mellitus with diabetic autonomic (poly)neuropathy (principal); K31.84 Gastroparesis; E11.22 Type 2 diabetes mellitus with diabetic chronic kidney disease; I12.0 Hypertensive chronic kidney disease with stage 5 chronic kidney disease or end stage renal disease; N18.6 End stage renal disease; D63.1 Anemia in chronic kidney disease; I50.9 Heart failure, unspecified; M19.90 Unspecified osteoarthritis, unspecified site; J44.9 Chronic obstructive pulmonary disease, unspecified; J45.909 Unspecified asthma, uncomplicated
CPT/HCPCS: 36415; 74020; 80053; 83690; 84703; 85025; 96374; 96375; 96376; 99284; J0360; J1170; J1200; J1642; J2405

== ENCOUNTER 2016-11-29 21:48 | Inpatient (IN) | payer MEDICARE ==
[2016-11-29] MEDS ORDERED: ZOFRAN ODT ONE (22:09)
[2016-11-29] MEDS ORDERED: ZOFRAN PO ONE (22:16)
[2016-11-29] MEDS ORDERED: ZOFRAN ODT PO ONE (23:00)
[2016-11-30] MEDS ORDERED: ZOFRAN IV ONE (08:39)
[2016-11-30 09:15] LABS: Hematocrit 28.7 % (30.3-42.9); Hemoglobin 9.4 gm/dl (10.1-14.3); Mean Corpuscular HGB Conc 33 % (30-34); Mean Corpuscular Hemoglobin 29 pg (28-32); Mean Corpuscular Volume 90 fl (79-97); Platelet Count 327 K/mm3 (140-440); Red Cell Distribution Width 15.1 % (13.2-15.2)
[2016-11-30 09:26] LABS: Albumin 4.2 g/dL (3.9-5); Albumin/Globulin Ratio 1.4 %; BUN/Creatinine Ratio 5.7; Bilirubin,Total 0.4 mg/dL (0.1-1.2); Calcium 9.1 mg/dL (8.4-10.2); Chloride 91.1 mmol/L (98-107); Potassium 5.6 mmol/L (3.6-5.0); Total Protein 7.3 g/dL (6.3-8.2)
--- NOTE | 2016-11-30 09:34 | Admit Criteria Form ---
Admission Criteria Documentation: HYPERTENSION Clinical Indications for Admission to Inpatient Care ( Place "X" for any and all applicable criteria): Admission is indicated for ANY ONE of the following(1)(2)(3)(4): [ ]I. Hypertensive emergency, with evidence of acute and progressing target organ disease as indicated by ANY ONE of the following: [ ]a) Hypertensive encephalopathy (eg, confusion, altered mental status) [ ]b) Cerebral infarction [ ]c) Intracranial hemorrhage [ ]d) Myocardial ischemia or infarction [ ]e) Pulmonary edema [ ]f) Aortic dissection [ ]g) Seizure [ ]h) Acute renal insufficiency [ ]i) Papilledema [ ]j) Microangiopathic hemolytic anemia [ ]II. Adrenergic crisis (eg, severe hypertension due to pheochromocytoma crisis, cocaine or amphetamine intoxication, or clonidine withdrawal) [ X]III. Severe hypertension (SBP greater than 180 mmHg or DBP greater than 110 mmHg or greater than the 95th percentile for age, gender, and height in pediatric patients) that cannot be controlled (eg, to SBP less than 160 mmHg and DBP less than 100 mmHg in adults) by treatment with oral medication in emergency department or observation care Extended stay beyond goal length of stay may be needed for(11)(12)(13): [ ]a) Persistent hypertensive encephalopathy [ ]b) Continuation of pulmonary edema [ ]c) Recurring or persistent severe hypertension [ ]d) Target organ damage (eg, angina, stroke, aortic dissection) [ ]e) Associated renal insufficiency The original [employer] content created by [employer] has been revised. The portions of the content which have been revised are identified through the use of italic text or in bold, and [facility] has neither reviewed nor approved the modified material. All other unmodified content is copyright [facility]. Please see references footnoted in the original [facility] edition 2016 Admission Criteria Met: Yes
[2016-11-30] MEDS ORDERED: BENADRYL IV ONE (09:35)
[2016-11-30] MEDS ORDERED: DILAUDID IV ONE (09:35)
[2016-11-30 09:46] LABS: Anisocytosis 1+; Basophils % (Manual) 0 % (0.0-1.8); Blastocytes % (Manual) 0 %; Eosinophils % (Manual) 0 % (0.0-4.3); Helmet Cells Rare; Microcytosis Few; Ovalocytes 1+; Polychromasia 1+
[2016-11-30 09:47] LABS: Diff Status Complete; Large Platelets Rare
[2016-11-30] MEDS ORDERED: PROVENTIL IH ONE (09:52)
[2016-11-30] MEDS ORDERED: CALCIUM CHLORIDE IV ONE (09:53)
[2016-11-30] MEDS ORDERED: D50W (25GM) IV ONE (09:53)
[2016-11-30] MEDS ORDERED: NACL 0.9% 50 ML ONE (10:14)
--- NOTE | 2016-11-30 10:32 | Emergency Department Report ---
HPI - General Chief Complaint: Abdominal Pain Time Seen by Provider: 11/30/16 08:39 - HPI HPI: This is a 36-year-old Afro-Romanian female who presents to the emergency department for the second day in a row with complaint of nausea, vomiting, abdominal pain. Patient has a history of diabetic gastroparesis and says that she got some improvement prior to discharge yesterday but returned starting this morning. The patient was supposed to go to dialysis first thing this morning as she was set up for this since she missed her dialysis appointment yesterday. She normally is Tuesday, Tuesday, Tuesday and follows with Dr. Trevino. She has a history of asthma, CHF, COPD, diabetes, CHF, gastroparesis, and end-stage renal disease. She denies any chest pain, shortness of breath, fever, and diaphoresis. ED Past Medical Hx - Past Medical History Hx Hypertension: Yes (CHF) Hx Congestive Heart Failure: Yes Hx Diabetes: Yes Hx Renal Disease: Yes (HD Tuesday) Hx Arthritis: Yes Hx Asthma: Yes Hx COPD: Yes Hx HIV: No Additional medical history: gastroporesis - Surgical History Hx Cholecystectomy: Yes Additional Surgical History: c section, tubal ligation. fistula right arm - Social History Smoking Status: Never Smoker Substance Use Type: None - Medications Home Medications: Home Medications Medication Instructions Recorded Confirmed Last Taken Type Labetalol [Normodyne TAB] 100 mg PO Q8HR #90 tablet 08/20/16 11/21/16 10/13/16 Rx Losartan [Cozaar] 100 mg PO QDAY #30 tablet 08/20/16 11/21/16 10/13/16 Rx Metoclopramide [Reglan ORAL LIQ] 10 mg PO TID 30 Days 08/21/16 11/21/16 Rx NIFEdipine XL [Procardia Xl] 90 mg PO BID #60 tablet 08/21/16 11/21/16 10/13/16 Rx HYDROcodone/APAP 5-325 [[place] 1 each PO Q8H PRN #10 tablet 09/11/16 11/21/16 Rx 5-325 mg TAB] cloNIDine [Catapres] 0.2 mg PO TID #90 tablet 09/11/16 11/16/16 11/16/16 07:00 Rx Pantoprazole [Protonix TAB] 40 mg PO BID #28 tablet 11/22/16 Unknown Rx ED Review of Systems ROS: Stated complaint: NAUSEA, VOMITING Other details as noted in HPI Comment: All other systems reviewed and negative Constitutional: denies: chills, fever Eyes: denies: eye pain, eye discharge, vision change ENT: denies: ear pain, throat pain Respiratory: denies: cough, shortness of breath, wheezing Cardiovascular: denies: chest pain, palpitations Gastrointestinal: abdominal pain, nausea, vomiting Genitourinary: denies: urgency, dysuria, discharge Musculoskeletal: denies: back pain, joint swelling, arthralgia Skin: denies: rash, lesions Neurological: denies: headache, weakness, paresthesias Physical Exam - Physical Exam Vital Signs: Vital Signs 11/29/16 11/30/16 22:02 08:51 Temperature 98.9 F 98.7 F Pulse Rate 120 H 121 H Respiratory 20 25 H Rate Blood Pressure 197/114 Blood Pressure 208/125 [Left] O2 Sat by Pulse 100 95 Oximetry Physical Exam: GENERAL: The patient is well-developed well-nourished. HEENT: Normocephalic. Atraumatic. Extraocular motions are intact. Patient has moist mucous membranes. Pupils equal reactive to light bilaterally. NECK: Supple. Trachea is midline. CHEST/LUNGS: Clear to auscultation. There is no respiratory distress noted. HEART/CARDIOVASCULAR: Regular. There is mild to moderate tachycardia. There is no gallop rub or murmur. ABDOMEN: Abdomen is soft. Generalized tenderness to palpation of the abdomen. No guarding or rebound tenderness. Patient has normal bowel sounds. There is no abdominal distention. SKIN: There is no rash. There is no edema. There is no diaphoresis. NEURO: The patient is awake, alert, and oriented. The patient is cooperative. The patient has no focal neurologic deficits. The patient has normal speech. MUSCULOSKELETAL: There is no tenderness or deformity. There is no limitation range of motion. There is no evidence of acute injury. ED Course Vital Signs 11/29/16 11/30/16 22:02 08:51 Temperature 98.9 F 98.7 F Pulse Rate 120 H 121 H Respiratory 20 25 H Rate Blood Pressure 197/114 Blood Pressure 208/125 [Left] O2 Sat by Pulse 100 95 Oximetry ED Medical Decision Making - Lab Data Result diagrams: 11/30/16 08:56 11/30/16 08:56 - Medical Decision Making 36-year-old female presents to the emergency department secondary to go for nausea, vomiting, abdominal pain consistent with her gastroparesis. However by coming in today she has once again missed her dialysis that was set up for her by her staff electronic warfare officer and has not had dialysis at least since last Tuesday. She had a abdominal x-ray yesterday that did not show any signs of obstruction or any acute process so this was not repeated again today. She had a normal potassium level yesterday but today it has increased to 5.6. She was given the hyperkalemia cocktail. I spoke with the staff electronic warfare officer, Dr. Trevino, who will arrange for the patient to get dialysis today. Patient has had hypertensive urgency with a systolic greater than 200. She was given some labetalol by myself and just received some hydralazine from the hospitalist. Patient will be admitted to hospital for her abdominal pain, dialysis and blood pressure control and has been accepted by Dr. Cisneros. - Differential Diagnosis gastroparesis, viral syndrome, food poisoning, volume overload Critical Care Time: No Critical care attestation.: If time is entered above; I have spent that time in minutes in the direct care of this critically ill patient, excluding procedure time. ED Disposition Clinical Impression: Gastroparesis, ESRD on hemodialysis, Hypertensive urgency, Anemia in chronic kidney disease Disposition: OP ADMITTED IP TO THIS HOSP Is pt being admited?: Yes Condition: Fair Time of Disposition: 12:18
[2016-11-30] MEDS ORDERED: NORMODYNE IV ONE (10:40)
[2016-11-30] MEDS ORDERED: ZOFRAN IV PRN (10:50)
[2016-11-30] MEDS ORDERED: DULCOLAX PR PRN (10:50)
[2016-11-30] MEDS ORDERED: TYLENOL PO PRN (10:50)
[2016-11-30] MEDS ORDERED: D50W (25GM) IV PRN (10:50)
[2016-11-30] MEDS ORDERED: APRESOLINE IV PRN (10:54)
[2016-11-30] MEDS ORDERED: MILK OF MAGNESIA PO PRN (12:27)
[2016-11-30] MEDS ORDERED: NACL 0.9% 1000 ML 100 ML IV PRN ×2 (13:39→20:00)
[2016-11-30] MEDS ORDERED: PROCRIT IV PRN (13:44)
[2016-11-30] MEDS: CATAPRES PO SCH ×2 (14:23→22:33)
[2016-11-30] MEDS: NORMODYNE PO SCH ×2 (14:24→23:37)
[2016-11-30] MEDS: NORCO 5/325 PO PRN ×2 (14:24→21:20)
[2016-11-30] MEDS: DUONEB 0.5 MG-3 MG/3 ML SOLN IH SCH ×2 (16:14→22:35)
[2016-11-30] MEDS: REGLAN PO SCH ×2 (16:14→22:37)
--- NOTE | 2016-11-30 16:18 | Gastroenterology Consultation ---
History of Present Illness - Reason for Consult Consult date: 11/30/16 Nausea/vomiting Requesting physician: HARDY NAJERA - History of Present Illness Asked to see this 36yo woman with hx of DM with resultant ESRD on HD, htn, gastroparesis, CHF, for evaluation of abd discomfort, nausea/vomiting. Pt missed HD yesterday, so came to ED with above complaints. Pt was just admitted last week and underwent an EGD by Dr. Hudson on 11/22, which revealed superficial gastric ulcers w/o evidence of bleeding. She was to be maintained on BID PPI. She is somewhat somnolent and does not provide much history at this time. No CP /SOB. Past History Past Medical History: diabetes, dialysis, ESRD, heart failure, hypertension Past Surgical History: , Other (right arm AV fistula) Social history: no significant social history Family history: no significant family history Medications and Allergies Allergies Allergy/AdvReac Type Severity Reaction Status Date / Time lisinopril Allergy Shortness Verified 09/07/16 11:27 of Breath morphine Allergy Hives Verified 09/17/16 21:15 Penicillins Allergy Hives Verified 09/07/16 11:27 Home Medications Medication Instructions Recorded Confirmed Last Taken Type Labetalol [Normodyne TAB] 100 mg PO Q8HR #90 tablet 08/20/16 11/21/16 10/13/16 Rx Losartan [Cozaar] 100 mg PO QDAY #30 tablet 08/20/16 11/21/16 10/13/16 Rx Metoclopramide [Reglan ORAL LIQ] 10 mg PO TID 30 Days 08/21/16 11/21/16 Rx NIFEdipine XL [Procardia Xl] 90 mg PO BID #60 tablet 08/21/16 11/21/16 10/13/16 Rx HYDROcodone/APAP 5-325 [[place] 1 each PO Q8H PRN #10 tablet 09/11/16 11/21/16 Rx 5-325 mg TAB] cloNIDine [Catapres] 0.2 mg PO TID #90 tablet 09/11/16 11/16/16 11/16/16 07:00 Rx Pantoprazole [Protonix TAB] 40 mg PO BID #28 tablet 11/22/16 Unknown Rx Active Meds: Active Medications Acetaminophen (Tylenol) 650 mg PO Q4H PRN PRN Reason: Pain MILD(1-3)/Fever >100.5/CRUZ Acetaminophen/Hydrocodone Bitart ([place] 5/325) 1 each PO Q8H PRN PRN Reason: Pain Last Admin: 11/30/16 14:24 Dose: 1 each Albuterol/Ipratropium (Duoneb 0.5 Mg-3 Mg/3 Ml Soln) 1 ampul IH Q6HRT [facility] Last Admin: 11/30/16 16:14 Dose: Not Given Bisacodyl (Dulcolax) 10 mg CA QDAY PRN PRN Reason: Constipation unrelieved by MOM Clonidine HCl (Catapres) 0.2 mg PO TID [facility] Last Admin: 11/30/16 14:23 Dose: 0.2 mg Dextrose (D50w (25gm)) 50 ml IV PRN PRN PRN Reason: Hypoglycemia Epoetin Armando (Procrit) 10,000 unit IV CELENA PRN PRN Reason: dialysis Hydralazine HCl (Apresoline) 20 mg IV Q6HR PRN PRN Reason: hypertension Last Admin: 11/30/16 12:20 Dose: 20 mg Sodium Chloride (Nacl 0.9% 1000 Ml) 100 mls @ 999 mls/hr IV CELENA PRN PRN Reason: Hypotension Insulin Human Regular (Novolin R) 0 units SUB-Q Q6HR GABRIELLA PRN Reason: Protocol Last Admin: 11/30/16 12:12 Dose: Not Given Labetalol HCl (Normodyne) 100 mg PO Q8HR [facility] Last Admin: 11/30/16 14:24 Dose: 100 mg Losartan Potassium (Cozaar) 100 mg PO QDAY [facility] Magnesium Hydroxide (Milk Of Magnesia) 30 ml PO Q4H PRN PRN Reason: Constipation Metoclopramide HCl (Reglan) 10 mg PO TID [facility] Last Admin: 11/30/16 16:14 Dose: Not Given Nifedipine (Procardia Xl) 90 mg PO BID [facility] Ondansetron HCl (Zofran) 4 mg IV Q8H PRN PRN Reason: N/V unrelieved by Reglan Pantoprazole Sodium (Protonix) 40 mg PO BID [facility] Review of Systems - Review of Systems All systems: negative (abd pain, nausea/vomiting) Exam - Constitutional Vital Signs: Temp Pulse Resp BP Pulse Ox 98.7 F 113 H 22 227/116 99 11/30/16 08:51 11/30/16 14:24 11/30/16 14:24 11/30/16 14:24 11/30/16 13:00 General appearance: no acute distress, other (wants to sleep) - EENT Eyes: PERRL - Neck Neck: supple - Respiratory Respiratory: bilateral: CTA - Cardiovascular Rhythm: regular Heart Sounds: Present: S1 & S2 Extremities: No edema - Gastrointestinal General gastrointestinal: Present: soft, tender (slight tenderness in epigastrium) - Integumentary Integumentary: Present: dry - Labs CBC & Chem 7: 11/30/16 08:56 11/30/16 08:56 Lab Results: Laboratory Results - last 24 hr 11/30/16 11/30/16 12:11 16:06 POC Glucose 114 H 135 H Assessment and Plan 1) Abd pain, nausea/vomiting: Probably related to uremia 2) Has hx of PUD based on EGD on 11/22/16 -HD as per nephrology -Maintain PPI but OK for once daily at this time No further GI w/u planned. Please re-call with questions. Thank you!
[2016-11-30] MEDS ORDERED: CATAPRES PO ONE (16:51)
--- NOTE | 2016-11-30 17:33 | Cat Scan Report ---
FINAL REPORT EXAM: CT HEAD/BRAIN WO CON HISTORY: A.M.S TECHNIQUE: CT examination of the head without IV contrast PRIORS: 09/17/2016 FINDINGS: No acute air-fluid level visualized in the included air-filled sinuses. Bone windows demonstrate no fracture. The brain is without mass, mass effect, hemorrhage, or acute infarct. There is no extra-axial intracranial bleed, brain bleed, or midline shift. The ventricles and sulci are age-appropriate. IMPRESSION: No acute CVA, intracranial bleed, or brain mass
--- NOTE | 2016-11-30 17:51 | History and Physical Report ---
History of Present Illness Date of examination: 11/30/16 Date of admission: 11/30/16 10:50 Chief complaint: Abdominal pain, hyperkalemia, missed dialysis History of present illness: Patient is a 36-year-old female with history of diabetic nephropathy, end-stage renal disease, dialysis days Wednesdays and Fridays. Also with diabetic gastroparesis, GI bleed. We'll presents to the ER with complaint of abdominal pain, nausea, vomiting. Patient had missed dialysis. If not she's had multiple admissions for diabetic gastroparesis. She was essentially in the ER for the same thing. She unfortunately is not answering my questions. She continues thrush around on the bed. I'll also ask the nurse taking care of her and they reported the same thing. Except when she asks for her pain medications. Review of records she reports her pain is 10 over 10 in intensity severe nonradiating. She denies any constipation or diarrhea and denies any hematemesis or melena. She states that the pain is generalized. ROS Obtained from record review Constitutional: No fever, fatigue or weight loss. Skin: No rash. Eyes: No recent vision problems or eye pain. ENT: No congestion, ear pain, or sore throat. Endocrine: No thyroid problems. Cardiovascular: No chest pain. Respiratory: No cough, shortness of breath, congestion, or wheezing. Gastrointestinal: Reports no abdominal pain but nausea, vomited and diarrhea Genitourinary: No dysuria. Musculoskeletal: No joint swelling. Neurologic: No seizures. Hematologic: No unusual bruising or bleeding. Psychiatric: No psychiatric problems, hallucinations or depression. All other systems reviewed and otherwise negative. Past History Past Medical History: diabetes, dialysis, ESRD, heart failure, hypertension Past Surgical History: , Other (right arm AV fistula) Social history: no significant social history Family history: no significant family history Medications and Allergies Allergies Allergy/AdvReac Type Severity Reaction Status Date / Time lisinopril Allergy Shortness Verified 09/07/16 11:27 of Breath morphine Allergy Hives Verified 09/17/16 21:15 Penicillins Allergy Hives Verified 09/07/16 11:27 Home Medications Medication Instructions Recorded Confirmed Last Taken Type Labetalol [Normodyne TAB] 100 mg PO Q8HR #90 tablet 11/04/16 02/05/17 12/28/16 Rx Losartan [Cozaar] 100 mg PO QDAY #30 tablet 08/20/16 11/21/16 10/13/16 Rx Metoclopramide [Reglan ORAL LIQ] 10 mg PO TID 30 Days 08/21/16 11/21/16 Rx NIFEdipine XL [Procardia Xl] 90 mg PO BID #60 tablet 08/21/16 11/21/16 10/13/16 Rx HYDROcodone/APAP 5-325 [[place] 1 each PO Q8H PRN #10 tablet 09/11/16 11/21/16 Rx 5-325 mg TAB] cloNIDine [Catapres] 0.2 mg PO TID #90 tablet 09/11/16 11/16/16 11/16/16 07:00 Rx Pantoprazole [Protonix TAB] 40 mg PO BID #28 tablet 11/22/16 Unknown Rx Active Meds: Active Medications Acetaminophen (Tylenol) 650 mg PO Q4H PRN PRN Reason: Pain MILD(1-3)/Fever >100.5/CRUZ Acetaminophen/Hydrocodone Bitart ([place] 5/325) 1 each PO Q8H PRN PRN Reason: Pain Last Admin: 11/30/16 14:24 Dose: 1 each Albuterol/Ipratropium (Duoneb 0.5 Mg-3 Mg/3 Ml Soln) 1 ampul IH Q6HRT [facility] Last Admin: 11/30/16 16:14 Dose: Not Given Bisacodyl (Dulcolax) 10 mg [place] QDAY PRN PRN Reason: Constipation unrelieved by MOM Clonidine HCl (Catapres) 0.2 mg PO TID [facility] Last Admin: 11/30/16 14:23 Dose: 0.2 mg Dextrose (D50w (25gm)) 50 ml IV PRN PRN PRN Reason: Hypoglycemia Epoetin Armando (Procrit) 10,000 unit IV CELENA PRN PRN Reason: dialysis Hydralazine HCl (Apresoline) 20 mg IV Q6HR PRN PRN Reason: hypertension Last Admin: 11/30/16 12:20 Dose: 20 mg Sodium Chloride (Nacl 0.9% 1000 Ml) 100 mls @ 999 mls/hr IV CELENA PRN PRN Reason: Hypotension Insulin Human Regular (Novolin R) 0 units SUB-Q Q6HR GABRIELLA PRN Reason: Protocol Last Admin: 11/30/16 12:12 Dose: Not Given Labetalol HCl (Normodyne) 100 mg PO Q8HR [facility] Last Admin: 11/30/16 14:24 Dose: 100 mg Losartan Potassium (Cozaar) 100 mg PO QDAY [facility] Magnesium Hydroxide (Milk Of Magnesia) 30 ml PO Q4H PRN PRN Reason: Constipation Metoclopramide HCl (Reglan) 10 mg PO TID [facility] Last Admin: 11/30/16 16:14 Dose: Not Given Nifedipine (Procardia Xl) 90 mg PO BID [facility] Ondansetron HCl (Zofran) 4 mg IV Q8H PRN PRN Reason: N/V unrelieved by Reglan Pantoprazole Sodium (Protonix) 40 mg PO BID [facility] Review of Systems ROS unobtainable: due to mental status (patient refusing to sign a question, - See obtained from record review) Exam - Physical Exam Narrative exam: VITAL SIGNS: Reviewed. GENERAL: The patient appeared well nourished and normally developed. Vital signs as documented. HEAD: No signs of head trauma. EYES: Pupils are equal. Extraocular motions intact. EARS: Hearing grossly intact. MOUTH: Oropharynx is normal. NECK: No adenopathy, no JVD. CHEST: Chest with clear breath sounds bilaterally. No wheezes, rales, or rhonchi. CARDIAC: Regular rate and rhythm. S1 and S2, without murmurs, gallops, or rubs. VASCULAR: No Edema. Peripheral pulses normal and equal in all extremities. ABDOMEN: Soft, without detectable tenderness. No sign of distention. No rebound or guarding, and no masses palpated. Bowel Sounds normal. MUSCULOSKELETAL: Good range of motion of all major joints. Extremities without clubbing, cyanosis or edema. NEUROLOGIC EXAM: Alert and oriented x 3. No focal sensory or strength deficits. Speech normal. Follows commands. PSYCHIATRIC: Mood normal. SKIN: No rash or lesions. - Constitutional Vitals: Temp Pulse Resp BP Pulse Ox 98.7 F 96 H 20 202/115 99 11/30/16 08:51 11/30/16 17:03 11/30/16 15:00 11/30/16 17:03 11/30/16 15:00 Results - Labs CBC & Chem 7: 11/30/16 08:56 11/30/16 08:56 Labs: Laboratory Last Values WBC 12.0 K/mm3 (4.5-11.0) H 11/30/16 08:56 RBC 3.20 M/mm3 (3.65-5.03) L 11/30/16 08:56 Hgb 9.4 gm/dl (10.1-14.3) L 11/30/16 08:56 Hct 28.7 % (30.3-42.9) L 11/30/16 08:56 MCV 90 fl (79-97) 11/30/16 08:56 MCH 29 pg (28-32) 11/30/16 08:56 MCHC 33 % (30-34) 11/30/16 08:56 RDW 15.1 % (13.2-15.2) 11/30/16 08:56 Plt Count 327 K/mm3 (140-440) 11/30/16 08:56 Add Manual Diff Complete 11/30/16 08:56 Total Counted 100 11/30/16 08:56 Seg Neutrophils % Rn Procedure 11/30/16 08:56 Seg Neuts % (Manual) 95.0 % (40.0-70.0) H 11/30/16 08:56 Band Neutrophils % 0 % 11/30/16 08:56 Lymphocytes % (Manual) 4.0 % (13.4-35.0) L 11/30/16 08:56 Reactive Lymphs % (Man) 0 % 11/30/16 08:56 Monocytes % (Manual) 0 % (0.0-7.3) 11/30/16 08:56 Eosinophils % (Manual) 0 % (0.0-4.3) 11/30/16 08:56 Basophils % (Manual) 0 % (0.0-1.8) 11/30/16 08:56 Metamyelocytes % 1.0 % 11/30/16 08:56 Myelocytes % 0 % 11/30/16 08:56 Promyelocytes % 0 % 11/30/16 08:56 Blast Cells % 0 % 11/30/16 08:56 Nucleated RBC % 1.0 % (0.0-0.9) H 11/30/16 08:56 Seg Neutrophils # Man 11.4 K/mm3 (1.8-7.7) H 11/30/16 08:56 Band Neutrophils # 0.0 K/mm3 11/30/16 08:56 Lymphocytes # (Manual) 0.5 K/mm3 (1.2-5.4) L 11/30/16 08:56 Abs React Lymphs (Man) 0.0 K/mm3 11/30/16 08:56 Monocytes # (Manual) 0.0 K/mm3 (0.0-0.8) 11/30/16 08:56 Eosinophils # (Manual) 0.0 K/mm3 (0.0-0.4) 11/30/16 08:56 Basophils # (Manual) 0.0 K/mm3 (0.0-0.1) 11/30/16 08:56 Metamyelocytes # 0.1 K/mm3 11/30/16 08:56 Myelocytes # 0.0 K/mm3 11/30/16 08:56 Promyelocytes # 0.0 K/mm3 11/30/16 08:56 Blast Cells # 0.0 K/mm3 11/30/16 08:56 WBC Morphology Not Reportable 11/30/16 08:56 Hypersegmented Neuts Not Reportable 11/30/16 08:56 Hyposegmented Neuts Not Reportable 11/30/16 08:56 Hypogranular Neuts Not Reportable 11/30/16 08:56 Smudge Cells Not Reportable 11/30/16 08:56 Toxic Granulation Not Reportable 11/30/16 08:56 Toxic Vacuolation Not Reportable 11/30/16 08:56 Dohle Bodies Not Reportable 11/30/16 08:56 Pelger-Huet Anomaly Not Reportable 11/30/16 08:56 Sarah Rods Not Reportable 11/30/16 08:56 Platelet Estimate Appears normal 11/30/16 08:56 Clumped Platelets Not Reportable 11/30/16 08:56 Plt Clumps, EDTA Not Reportable 11/30/16 08:56 Large Platelets Rare 11/30/16 08:56 Giant Platelets Not Reportable 11/30/16 08:56 Platelet Satelliting Not Reportable 11/30/16 08:56 Plt Morphology Comment Not Reportable 11/30/16 08:56 RBC Morphology Not Reportable 11/30/16 08:56 Dimorphic RBCs Not Reportable 11/30/16 08:56 Polychromasia 1+ 11/30/16 08:56 Hypochromasia Not Reportable 11/30/16 08:56 Poikilocytosis Not Reportable 11/30/16 08:56 Anisocytosis 1+ 11/30/16 08:56 Microcytosis Few 11/30/16 08:56 Macrocytosis Not Reportable 11/30/16 08:56 Spherocytes Not Reportable 11/30/16 08:56 Pappenheimer Bodies Not Reportable 11/30/16 08:56 Sickle Cells Not Reportable 11/30/16 08:56 Target Cells Not Reportable 11/30/16 08:56 Tear Drop Cells Not Reportable 11/30/16 08:56 Ovalocytes 1+ 11/30/16 08:56 Helmet Cells Rare 11/30/16 08:56 Mariscal-Emden Bodies Not Reportable 11/30/16 08:56 [place] Rings Not Reportable 11/30/16 08:56 [place] Cells Not Reportable 11/30/16 08:56 Bite Cells Not Reportable 11/30/16 08:56 Crenated Cell Not Reportable 11/30/16 08:56 Elliptocytes Not Reportable 11/30/16 08:56 Acanthocytes (Spur) Not Reportable 11/30/16 08:56 Rouleaux Not Reportable 11/30/16 08:56 Hemoglobin C Crystals Not Reportable 11/30/16 08:56 Schistocytes Not Reportable 11/30/16 08:56 Malaria parasites Not Reportable 11/30/16 08:56 Jerald Bodies Not Reportable 11/30/16 08:56 Hem Pathologist Commnt No 11/30/16 08:56 Sodium 135 mmol/L (137-145) L 11/30/16 08:56 Potassium 5.6 mmol/L (3.6-5.0) H 11/30/16 08:56 Chloride 91.1 mmol/L (98-107) L 11/30/16 08:56 Carbon Dioxide 22 mmol/L (22-30) 11/30/16 08:56 Anion Gap 28 mmol/L 11/30/16 08:56 BUN 65 mg/dL (7-17) H 11/30/16 08:56 Creatinine 11.4 mg/dL (0.7-1.2) H 11/30/16 08:56 Estimated GFR 5 ml/min 11/30/16 08:56 BUN/Creatinine Ratio 5.70 % 11/30/16 08:56 Glucose 176 mg/dL (65-100) H 11/30/16 08:56 POC Glucose 135 (70-105) H 11/30/16 16:06 Calcium 9.1 mg/dL (8.4-10.2) 11/30/16 08:56 Total Bilirubin 0.4 mg/dL (0.1-1.2) 11/30/16 08:56 AST 22 units/L (5-40) 11/30/16 08:56 ALT 8 units/L (7-56) 11/30/16 08:56 Alkaline Phosphatase 163 units/L (35-129) H 11/30/16 08:56 Total Protein 7.3 g/dL (6.3-8.2) 11/30/16 08:56 Albumin 4.2 g/dL (3.9-5) 11/30/16 08:56 Albumin/Globulin Ratio 1.4 % 11/30/16 08:56 Triglycerides 106 mg/dL (2-149) 11/30/16 08:56 Cholesterol 226 mg/dL (50-199) H 11/30/16 08:56 LDL Cholesterol Direct 117 mg/dL (50-130) 11/30/16 08:56 HDL Cholesterol 88 mg/dL (40-59) H 11/30/16 08:56 Cholesterol/HDL Ratio 2.56 % 11/30/16 08:56 - Imaging and Cardiology Abdominal x-ray: image reviewed (no acute pathology noted distention.) Assessment and Plan Assessment and plan: Patient is a 36-year-old female with history of diabetic nephropathy, end-stage renal disease, dialysis days Wednesdays and Fridays. Also with diabetic gastroparesis, GI bleed. We'll presents to the ER with complaint of abdominal pain, nausea, vomiting. Patient had missed dialysis. If not she's had multiple admissions for diabetic gastroparesis. She was essentially in the ER for the same thing. She unfortunately is not answering my questions. She continues thrush around on the bed. I'll also ask the nurse taking care of her and they reported the same thing. Except when she asks for her pain medications. Review of records she reports her pain is 10 over 10 in intensity severe nonradiating. She denies any constipation or diarrhea and denies any hematemesis or melena. She states that the pain is generalized * Abdominal pain likely secondary to gastroparesis * Uncontrolled diabetes mellitus * Hypertensive urgency * Hyperkalemia * End-stage renal disease on hemodialysis * Anemia of chronic disease Plan * Will admit medical floor, urgent dialysis has been arranged for hyperkalemia * We'll resume home medications. We'll add hydralazine 20 mg every 6 hours when necessary * Goal is to gently correct pressure. She may require clonidine to be changed to a patch due to possibly non-absorption. * Review of the KUB done did not show any dietitian. I cannot appreciate any area of tenderness. If pain continues unabated despite dialysis will recommend obtaining further imaging. * We'll obtain GI evaluation * Monitor correct electrolytes * Accu-Cheks before meals and daily at bedtime * DVT and GI prophylaxis * The high probability of a clinically significant, sudden or life threatening deterioration of the [vascular, renal] system(s) required my full and direct attention, intervention and personal management. The aggregate critical care time was [35] minutes. This time is in addition to time spent performing reported procedures but includes the following: [x] Data Review and interpretation [x] Patient assessment and monitoring of vital signs [x] Documentation [x] Medication orders and management Advance Directives: Yes Plan of care discussed with patient/family: Yes
--- NOTE | 2016-11-30 19:56 | Consultation ---
History of Present Illness - Reason for Consult Consult date: 11/30/16 end stage renal disease Requesting physician: MOODY HUI - History of Present Illness 36-year-old lady with a history of end-stage renal disease secondary to diabetic nephropathy. Patient dialyzes on a Tuesday, Tuesday and Tuesday schedule at [facility] dialysis. She has a history of diabetic gastroparesis and has had numerous hospitalizations on account of exacerbations which are usually associated associated with accelerated hypertension and volume overload. Recently patient was admitted twice with gastrointestinal bleeding with hemoglobin dropping as low as 4 g/dL. It was secondary to bleeding peptic ulcers. Patient was recently admitted just last week with similar symptoms. She underwent esophagogastroduodenoscopy which showed a superficial gastric ulcer with no bleeding. Patient presented to the emergency room yesterday with abdominal pain, nausea and vomiting of a couple of days duration. She describes it as an achy pain which is nonradiating but is severe rating it as a 10 over 10. There is no associated constipation or diarrhea. No hematemesis or melena. Patient was seen in the ER and improved with medications and was discharged home. She was meant to go to the outpatient dialysis clinic this morning for her routine dialysis which she missed yesterday. Patient however came back to the emergency room with worsening symptoms. Potassium is also a bit high at 5.6 mmol per liter. She is being admitted for further management. Past History Past Medical History: diabetes (complicated by retinopathy, neuropathy, gastroparesis and nephropathy), dialysis, ESRD, heart failure, hypertension, hyperlipidemia, other (gastroparesis) Past Surgical History: cholecystectomy, , Other (right arm AV fistula, bilateral tubal ligation, Retinal laser photocoagulation therapy, permacath placement) Social history: no significant social history, lives with family (her children. 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 denies: smoking, alcohol abuse, prescription drug abuse, IV drug use Family history: no significant family history, CAD (father of myocardial infarction age 56), cancer (mother had lung cancer), diabetes (both parents), hypertension (both parents) Medications and Allergies Allergies Allergy/AdvReac Type Severity Reaction Status Date / Time lisinopril Allergy Shortness Verified 09/07/16 11:27 of Breath morphine Allergy Hives Verified 09/17/16 21:15 Penicillins Allergy Hives Verified 09/07/16 11:27 Home Medications Medication Instructions Recorded Confirmed Last Taken Type Labetalol [Normodyne TAB] 100 mg PO Q8HR #90 tablet 08/20/16 11/21/16 10/13/16 Rx Losartan [Cozaar] 100 mg PO QDAY #30 tablet 08/20/16 11/21/16 10/13/16 Rx Metoclopramide [Reglan ORAL LIQ] 10 mg PO TID 30 Days 08/21/16 11/21/16 Rx NIFEdipine XL [Procardia Xl] 90 mg PO BID #60 tablet 08/21/16 11/21/16 10/13/16 Rx HYDROcodone/APAP 5-325 [[place] 1 each PO Q8H PRN #10 tablet 09/11/16 11/21/16 Rx 5-325 mg TAB] cloNIDine [Catapres] 0.2 mg PO TID #90 tablet 09/11/16 11/16/16 11/16/16 07:00 Rx Pantoprazole [Protonix TAB] 40 mg PO BID #28 tablet 11/22/16 Unknown Rx Active Meds: Active Medications Acetaminophen (Tylenol) 650 mg PO Q4H PRN PRN Reason: Pain MILD(1-3)/Fever >100.5/CRUZ Acetaminophen/Hydrocodone Bitart ([place] 5/325) 1 each PO Q8H PRN PRN Reason: Pain Last Admin: 11/30/16 14:24 Dose: 1 each Albuterol/Ipratropium (Duoneb 0.5 Mg-3 Mg/3 Ml Soln) 1 ampul IH Q6HRT [facility] Last Admin: 11/30/16 16:14 Dose: Not Given Bisacodyl (Dulcolax) 10 mg SC QDAY PRN PRN Reason: Constipation unrelieved by MOM Clonidine HCl (Catapres) 0.2 mg PO TID [facility] Last Admin: 11/30/16 14:23 Dose: 0.2 mg Dextrose (D50w (25gm)) 50 ml IV PRN PRN PRN Reason: Hypoglycemia Epoetin Armando (Procrit) 10,000 unit IV CELENA PRN PRN Reason: dialysis Hydralazine HCl (Apresoline) 20 mg IV Q6HR PRN PRN Reason: hypertension Last Admin: 11/30/16 12:20 Dose: 20 mg Sodium Chloride (Nacl 0.9% 1000 Ml) 100 mls @ 999 mls/hr IV CELENA PRN PRN Reason: Hypotension Insulin Human Regular (Novolin R) 0 units SUB-Q Q6HR GABRIELLA PRN Reason: Protocol Last Admin: 11/30/16 12:12 Dose: Not Given Labetalol HCl (Normodyne) 100 mg PO Q8HR GABRIELLA Last Admin: 11/30/16 14:24 Dose: 100 mg Losartan Potassium (Cozaar) 100 mg PO QDAY GABRIELLA Magnesium Hydroxide (Milk Of Magnesia) 30 ml PO Q4H PRN PRN Reason: Constipation Metoclopramide HCl (Reglan) 10 mg PO TID GABRIELLA Last Admin: 11/30/16 16:14 Dose: Not Given Nifedipine (Procardia Xl) 90 mg PO BID GABRIELLA Ondansetron HCl (Zofran) 4 mg IV Q8H PRN PRN Reason: N/V unrelieved by Reglan Pantoprazole Sodium (Protonix) 40 mg PO BID [facility] Review of Systems All systems: negative (as noted any history of present illness. Patient not willing or able to answer the questions. She is somewhat somnolent) Exam - Vital Signs Vital signs: Vital Signs Temp Pulse Resp BP Pulse Ox 98.9 F 120 H 20 197/114 100 11/29/16 22:02 11/29/16 22:02 11/29/16 22:02 11/29/16 22:02 11/29/16 22:02 - Physical Exam Narrative exam: [Young -Ivorian female lying in bed on dialysis] in no acute distress HEENT [normocephalic atraumatic, pupils equal reactive to light, pink, clear oropharynx] Neck [supple, no thyromegaly no jugular venous distention] CVS [S1-S2 regular rate rhythm without murmur, rub or gallop] Chest [clear to auscultation but diminished in the lower zones] Abdomen [soft nondistended epigastric tenderness, no organomegaly no bruit bowel sounds present] Extremities [no edema no cyanosis or clubbing, right upper extremity AV fistula] Genitourinary [deferred] Neuro [drowsy, awakens briefly and answers questions but goes back to sleep] Results - Lab Results 11/30/16 08:56 11/30/16 08:56 Most recent lab results Calcium 9.1 mg/dL (8.4-10.2) 11/30/16 08:56 Assessment and Plan - Patient Problems (1) Hyperkalemia Current Visit: No Status: Acute Plan to address problem: Urgent dialysis arranged for hyperkalemia. Would dialyze again in the morning (2) Accelerated hypertension Current Visit: No Status: Acute Plan to address problem: Follow-up blood pressure after fluid removal on dialysis. Resume oral antihypertensives medications (3) Anemia in chronic kidney disease Current Visit: Yes Status: Acute Plan to address problem: Give erythropoietin on dialysis (4) ESRD on hemodialysis Current Visit: Yes Status: Acute Plan to address problem: Hemodialysis today and again in the morning (5) Gastroparesis due to DM Current Visit: Yes Status: Acute Plan to address problem: IV antiemetics. GI consultation (6) Diabetes mellitus Current Visit: No Status: Acute Qualifiers: Diabetes mellitus type: D Diabetes mellitus complication status: D Diabetes mellitus complication detail: D Diabetic retinopathy severity: D Proliferative retinopathy type: P Diabetes mellitus macular edema: D Diabetes mellitus fci insulin use: D Laterality: L Chronic kidney disease stage: C Plan to address problem: Blood sugar management by primary attending
[2016-11-30] MEDS ORDERED: PROVENTIL IH PRN (23:30)
[2016-11-30] MEDS: PROCARDIA XL PO SCH (23:39)
[2016-11-30] MEDS: PROTONIX PO SCH (23:40)
[2016-12-01] MEDS ORDERED: DILAUDID PO ONE ×2 (03:44→05:00)
[2016-12-01] MEDS ORDERED: APRESOLINE IV PRN (06:22)
[2016-12-01] MEDS: CATAPRES PO SCH ×4 (08:06→14:25)
[2016-12-01] MEDS: REGLAN PO SCH ×2 (08:07→14:24)
[2016-12-01] MEDS: NORMODYNE PO SCH ×2 (08:07→14:25)
[2016-12-01 08:50] LABS: Hemoglobin 8.6 gm/dl (10.1-14.3); Mean Corpuscular HGB Conc 33 % (30-34); Mean Corpuscular Hemoglobin 30 pg (28-32); Mean Corpuscular Volume 90 fl (79-97); Platelet Count 271 K/mm3 (140-440); Red Blood Count 2.87 M/mm3 (3.65-5.03); Red Cell Distribution Width 15.7 % (13.2-15.2); White Blood Count 11.4 K/mm3 (4.5-11.0)
[2016-12-01 09:04] LABS: Albumin 3.9 g/dL (3.9-5); Albumin/Globulin Ratio 1.1 %; BUN/Creatinine Ratio 4.55; Bilirubin,Total 0.4 mg/dL (0.1-1.2); Calcium 8.4 mg/dL (8.4-10.2); Chloride 93.9 mmol/L (98-107); Potassium 4.4 mmol/L (3.6-5.0); Total Protein 7.4 g/dL (6.3-8.2)
[2016-12-01 09:52] LABS: Blastocytes % (Manual) 0 %
[2016-12-01 09:53] LABS: Anisocytosis 1+; Diff Status Complete; Poikilocytosis Few; Polychromasia Few
[2016-12-01] MEDS ORDERED: COZAAR PO SCH (10:00)
[2016-12-01] MEDS: PROCARDIA XL PO SCH (10:00)
[2016-12-01] MEDS: PROTONIX PO SCH (10:00)
--- NOTE | 2016-12-01 10:00 | Discharge Summary ---
Providers - Providers Date of Admission: 11/30/16 10:50 Date of discharge: 12/01/16 Attending physician: HEYDI SAVAGE MD 11/30/16 12:58 Consult to Physician [CONS] Routine Consulting Provider: GAURAV TREVINO Reason For Exam: Dialysis Place consult to:: Dr. Trevino Notified:: yes Phone number called:: [phone] Was contact made?: Yes If yes, spoke with:: Dr. Trevino Time called:: 09:51 Primary care physician: RETINA SUBSPECIALIST Hospitalization Reason for admission: abdominal pain Condition: Stable Hospital course: Patient is a 36-year-old female with history of diabetic nephropathy, end-stage renal disease, dialysis days Wednesdays and Fridays. Also with diabetic gastroparesis, GI bleed. We'll presents to the ER with complaint of abdominal pain, nausea, vomiting. Patient had missed dialysis. If not she's had multiple admissions for diabetic gastroparesis. She was essentially in the ER for the same thing. She unfortunately is not answering my questions. She continues thrush around on the bed. I'll also ask the nurse taking care of her and they reported the same thing. Except when she asks for her pain medications. Review of records she reports her pain is 10 over 10 in intensity severe nonradiating. She denies any constipation or diarrhea and denies any hematemesis or melena. She states that the pain is generalized. The patient during hospitalization began speaking to me after we decided no IV pain Medication until we can properly evaluatE this patient. 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 She reports that she has a pain physician, when questioned further she states primary care doctor. She reports she had had other doctor because they give her on medication. She saw sure what the name of the medication is or how the medication was wrong. Her blood pressure is better improved following dialysis despite stating that she's been vomiting multiple days which she again did not tell them on dialysis center which she claims she goes to and she could not tell me the last day she actually went. She is clinically stable on my examination I could not appreciate any demonstrable abdominal pain. I recommended and discussed the compliance with her she verbalized understanding. Discharge diagnosis * Chronic abdominal pain Abdominal pain likely secondary to gastroparesis * Noncompliance * Uncontrolled diabetes mellitus * Hypertensive urgency * Hyperkalemia * End-stage renal disease on hemodialysis * Anemia of chronic disease Disposition: DISCHARGED TO HOME OR SELFCARE Time spent for discharge: 35 MINS Core Measure Documentation - Palliative Care Palliative Care/ Comfort Measures: Not Applicable - Core Measures Any of the following diagnoses?: none - VTE Discharge Requirements Deep Vein Thrombosis/Pulmonary Embolism Present on Admission: No Exam - Physical Exam Narrative exam: VITAL SIGNS: Reviewed. GENERAL: The patient appeared well nourished and normally developed. Vital signs as documented. HEAD: No signs of head trauma. EYES: Pupils are equal. Extraocular motions intact. EARS: Hearing grossly intact. MOUTH: Oropharynx is normal. NECK: No adenopathy, no JVD. CHEST: Chest with clear breath sounds bilaterally. No wheezes, rales, or rhonchi. CARDIAC: Regular rate and rhythm. S1 and S2, without murmurs, gallops, or rubs. VASCULAR: No Edema. Peripheral pulses normal and equal in all extremities. ABDOMEN: Soft, without detectable tenderness. No sign of distention. No rebound or guarding, and no masses palpated. Bowel Sounds normal. MUSCULOSKELETAL: Good range of motion of all major joints. Extremities without clubbing, cyanosis or edema. NEUROLOGIC EXAM: Alert and oriented x 3. No focal sensory or strength deficits. Speech normal. Follows commands. PSYCHIATRIC: Mood normal. SKIN: No rash or lesions. - Constitutional Vitals: Temp Pulse Resp BP Pulse Ox 98.2 F 112 H 20 192/99 96 12/01/16 08:19 12/01/16 08:19 12/01/16 08:19 12/01/16 08:19 12/01/16 09:16 Plan Activity: advance as tolerated, fall precautions Diet: renal Special Instructions: record daily BP diary, record blood sugar diary Follow up with: PRIMARY CAREMD [Primary Care Provider] - 3-5 Days
--- NOTE | 2016-12-01 10:17 | Progress Note ---
Assessment and Plan - Patient Problems (1) Hyperkalemia Current Visit: No Status: Acute Plan to address problem: Resolved with dialysis (2) Accelerated hypertension Current Visit: No Status: Acute Plan to address problem: Blood pressure improved with dialysis. Continue oral antihypertensives medications (3) Anemia in chronic kidney disease Current Visit: Yes Status: Acute Plan to address problem: Give erythropoietin on dialysis (4) ESRD on hemodialysis Current Visit: Yes Status: Acute Plan to address problem: Hemodialysis again this morning. I spoke to Dr. okeh. Mills to discharge from my standpoint after dialysis. Patient to follow-up at the outpatient clinic on Tuesday (5) Gastroparesis due to DM Current Visit: Yes Status: Acute Plan to address problem: IV antiemetics. GI consultation (6) Diabetes mellitus Current Visit: No Status: Acute Qualifiers: Diabetes mellitus type: D Diabetes mellitus complication status: D Diabetes mellitus complication detail: D Diabetic retinopathy severity: D Proliferative retinopathy type: P Diabetes mellitus macular edema: D Diabetes mellitus manager intermediate insulin use: D Laterality: L Chronic kidney disease stage: C Plan to address problem: Blood sugar management by primary attending Subjective Date of service: 12/01/16 Principal diagnosis: end-stage renal disease Interval history: Patient seen lying in bed. She is on dialysis. She has no complaints Q 300/800 UFR 2 L BP now 138/84 Objective - Exam Narrative Exam: [Young -Sudanese female lying in bed on dialysis] in no acute distress CVS [S1-S2 regular rate rhythm without murmur, rub or gallop] Chest [clear to auscultation but diminished in the lower zones] Abdomen [soft nondistended epigastric tenderness, no organomegaly no bruit bowel sounds present] Extremities [no edema no cyanosis or clubbing, right upper extremity AV fistula] Neuro [drowsy, awakens briefly and answers questions but goes back to sleep] - Vital Signs Vital signs: Vital Signs - 12hr 11/30/16 11/30/16 11/30/16 22:33 22:35 22:45 Temperature 98.7 F Pulse Rate 90 Pulse Rate [ 98 H Anterior Bilateral Throughout] Pulse Rate [ 102 H Radial] Pulse Rate [ 98 H Throughout] Respiratory 20 Rate Respiratory 18 Rate [Anterior Bilateral Throughout] Respiratory 18 Rate [ Throughout] Blood Pressure 189/102 Blood Pressure 198/101 [Left Arm] O2 Sat by Pulse 97 96 Oximetry 11/30/16 11/30/16 11/30/16 22:47 23:29 23:37 Temperature Pulse Rate 90 Pulse Rate [ 97 H Anterior Bilateral Throughout] Pulse Rate [ Radial] Pulse Rate [ Throughout] Respiratory Rate Respiratory 18 Rate [Anterior Bilateral Throughout] Respiratory Rate [ Throughout] Blood Pressure 189/102 Blood Pressure [Left Arm] O2 Sat by Pulse 98 Oximetry 12/01/16 12/01/16 12/01/16 08:06 08:19 09:16 Temperature 98.2 F Pulse Rate 112 H Pulse Rate [ Anterior Bilateral Throughout] Pulse Rate [ 112 H Radial] Pulse Rate [ Throughout] Respiratory 20 Rate Respiratory Rate [Anterior Bilateral Throughout] Respiratory Rate [ Throughout] Blood Pressure 192/99 Blood Pressure 192/99 [Left Arm] O2 Sat by Pulse 96 96 Oximetry - Lab 12/01/16 08:30 12/01/16 08:30 Most recent lab results Calcium 8.4 mg/dL (8.4-10.2) 12/01/16 08:30
[2016-12-01 13:30] VITALS: BP 173/93
[2016-12-01] MEDS ORDERED: TRIPLE ANTIBIOTIC TP ONE (13:56)
[2016-12-01] MEDS ORDERED: FLUSH HEPARIN IV ONE (14:15)
[2016-12-01] MEDS: NORCO 5/325 PO PRN (14:23)
== END 2016-12-01 14:50 | disposition home or self-care (01) | DRG 682 ==
LOC: ED 21:48 → 3A 11-30 10:50
PROVIDERS: ADMIT Internal Medicine; ATTEND Internal Medicine
PROC: 5A1D00Z (ICD-10-PCS; principal; 2016-12-01)
DX: I13.11 Hypertensive heart and chronic kidney disease without heart failure, with stage 5 chronic kidney disease, or end stage renal disease (principal); N18.6 End stage renal disease; K31.84 Gastroparesis; E11.43 Type 2 diabetes mellitus with diabetic autonomic (poly)neuropathy; E11.65 Type 2 diabetes mellitus with hyperglycemia; E11.22 Type 2 diabetes mellitus with diabetic chronic kidney disease; D63.1 Anemia in chronic kidney disease; I16.0 Hypertensive urgency; I50.9 Heart failure, unspecified; E87.5 Hyperkalemia; Z88.0 Allergy status to penicillin; Z88.5 Allergy status to narcotic agent; Z99.2 Dependence on renal dialysis; Z79.4 Long term (current) use of insulin; Z79.01 Long term (current) use of anticoagulants; Z90.49 Acquired absence of other specified parts of digestive tract; Z98.51 Tubal ligation status; Z82.49 Family history of ischemic heart disease and other diseases of the circulatory system; Z80.1 Family history of malignant neoplasm of trachea, bronchus and lung; Z83.3 Family history of diabetes mellitus; Z91.15 Patient's noncompliance with renal dialysis
CPT/HCPCS: 36415; 70450; 80053; 80061; 82962; 85007; 85025; 94640; 94760; 96374; 96375; A6250; J0360; J0885; J1170; J1200; J1642; J1815; J2405; J7030; Q0162

== ENCOUNTER 2016-12-26 06:48 | Inpatient (IN) | payer MEDICARE ==
[2016-12-26] MEDS ORDERED: REGLAN IV ONE (09:41)
[2016-12-26] MEDS ORDERED: DILAUDID IV ONE ×4 (09:41→19:20)
[2016-12-26] MEDS ORDERED: BENADRYL IV ONE ×2 (09:41→20:03)
[2016-12-26] MEDS ORDERED: ATIVAN IV ONE ×5 (09:41→19:21)
[2016-12-26] MEDS ORDERED: ZOFRAN IV ONE ×2 (09:41→15:25)
[2016-12-26 09:56] LABS: Basophils % (Auto) 0.7 % (0.0-1.8); Eosinophils % (Auto) 0.7 % (0.0-4.3); Hematocrit 30.1 % (30.3-42.9); Hemoglobin 9.8 gm/dl (10.1-14.3); Mean Corpuscular HGB Conc 33 % (30-34); Mean Corpuscular Hemoglobin 30 pg (28-32); Mean Corpuscular Volume 90 fl (79-97); Platelet Count 292 K/mm3 (140-440); Red Blood Count 3.34 M/mm3 (3.65-5.03); Red Cell Distribution Width 17.4 % (13.2-15.2); White Blood Count 5.8 K/mm3 (4.5-11.0)
[2016-12-26] MEDS ORDERED: CARDENE DRIP 40 MG/200 ML 40 MG/200 ML BAG IV SCH (10:00)
[2016-12-26 10:13] LABS: INR 0.97 (0.87-1.13)
[2016-12-26 10:28] LABS: Creatine Kinase MB 2.5 ng/mL (0.0-4.0)
--- NOTE | 2016-12-26 10:32 | Emergency Department Report ---
ED Abdominal Pain HPI - General Chief Complaint: Chest Pain Stated Complaint: CHEST PAIN, ABDOMINAL PAIN Time Seen by Provider: 12/26/16 09:20 Source: patient, old records reviewed Mode of arrival: Wheelchair Limitations: No Limitations - History of Present Illness Initial Comments: 36-year-old female with a past medical history of narcotic dependence, end- stage renal disease on hemodialysis, gastroparesis, diabetes, hypertension, and CHF presents to the hospital complains of abdominal pain, vomiting, shortness of breath. Patient suffers from frequent bouts of gastroparesis and was admitted earlier this month for the same. She complains of 10/10 epigastric abdominal pain. Unable to characterize pain. Pain is constant. Worse with palpation. No alleviating factors. Patient takes oxycodone 30 mg and Reglan at home for gastroparesis. Upon arrival patient was dry heaving and complaining of shortness of breath with documented tachypnea/hyperventilating. Patient presents hypertensive and has been tolerating her blood pressure medication. She has been compliant with her dialysis Tuesday, Tuesday, and Tuesday. Severity scale (0 -10): 10 - Related Data Previous Rx's Medication Instructions Recorded Last Taken Type HYDROcodone/APAP 5-325 [[place] 1 each PO Q4H PRN #10 tablet 12/21/16 Unknown Rx 5-325 mg TAB] Pantoprazole [Protonix TAB] 40 mg PO DAILY #30 tablet 12/21/16 Unknown Rx amLODIPine [Norvasc] 10 mg PO QDAY #30 tablet 12/21/16 Unknown Rx cloNIDine [Catapres] 0.2 mg PO Q8HR #90 tablet 12/21/16 Unknown Rx hydrALAZINE [Apresoline TAB] 100 mg PO TID #90 tab 12/21/16 Unknown Rx Allergies Allergy/AdvReac Type Severity Reaction Status Date / Time lisinopril Allergy Shortness Verified 09/07/16 11:27 of Breath morphine Allergy Hives Verified 09/17/16 21:15 Penicillins Allergy Hives Verified 09/07/16 11:27 ED Review of Systems ROS: Stated complaint: CHEST PAIN, ABDOMINAL PAIN Other details as noted in HPI Comment: All other systems reviewed and negative Other: Constitutional: No fevers chills Eyes: No eye pain visual changes ENT: No ear pain or throat pain Neck: Denies pain Respiratory: Denies cough wheezing Cardiovascular: Denies chest pain, palpitations, syncope GI: as per hpi : Denies dysuria Musculoskeletal: Denies back pain Skin: Denies rash, lesions, erythema Neurologic: Denies headache, numbness, weakness Psychiatric: Denies suicidal ideation, hallucinations ED Past Medical Hx - Past Medical History Hx Hypertension: Yes Hx Congestive Heart Failure: Yes Hx Diabetes: Yes Hx Renal Disease: Yes (HD Tuesday) Hx Arthritis: Yes Hx Asthma: Yes Hx COPD: Yes Hx HIV: No Additional medical history: gastroporesis - Surgical History Hx Cholecystectomy: Yes Additional Surgical History: c section, tubal ligation. fistula right arm - Social History Smoking Status: Never Smoker Substance Use Type: None - Medications Home Medications: Home Medications Medication Instructions Recorded Confirmed Last Taken Type HYDROcodone/APAP 5-325 [[place] 1 each PO Q4H PRN #10 tablet 12/21/16 Unknown Rx 5-325 mg TAB] Pantoprazole [Protonix TAB] 40 mg PO DAILY #30 tablet 12/21/16 Unknown Rx amLODIPine [Norvasc] 10 mg PO QDAY #30 tablet 12/21/16 Unknown Rx cloNIDine [Catapres] 0.2 mg PO Q8HR #90 tablet 12/21/16 Unknown Rx hydrALAZINE [Apresoline TAB] 100 mg PO TID #90 tab 12/21/16 Unknown Rx ED Physical Exam - General Limitations: No Limitations - Other Other exam information: General: Distress secondary to pain Head exam: Atraumatic, normocephalic Eyes exam: Normal appearance, pupils equal reactive to light, extraocular movements intact ENT: Moist mucous membrane, normal oropharynx Neck exam: Normal inspection, full range of motion Respiratory exam: Clear to auscultation bilateral, no wheezes, rales, crackles Cardiovascular: Tachycardic regular rhythm Abdomen: Soft, nondistended, generalized abdominal tenderness, with normal bowel sounds, no rebound, or guarding Extremity: Full range of motion normal inspection no deformity Back: Normal Inspection, full range of motion, no tenderness Neurologic: Alert, oriented x3, cranial nerves intact, no motor or sensory deficit Psychiatric: Tearful Skin: Warm, dry, intact ED Course Vital Signs 12/26/16 12/26/16 12/26/16 07:38 09:15 09:45 Temperature 98.0 F Pulse Rate 115 H 113 H 109 H Respiratory 32 H 20 20 Rate Blood Pressure 194/143 Blood Pressure 222/111 194/88 [Left] O2 Sat by Pulse 100 100 100 Oximetry 12/26/16 12/26/16 12/26/16 10:45 11:00 11:20 Temperature Pulse Rate 119 H 109 H 103 H Respiratory 20 18 17 Rate Blood Pressure Blood Pressure 207/109 188/99 168/87 [Left] O2 Sat by Pulse 100 99 100 Oximetry 12/26/16 12/26/16 11:35 11:40 Temperature Pulse Rate 101 H 100 H Respiratory 18 18 Rate Blood Pressure Blood Pressure 161/90 159/87 [Left] O2 Sat by Pulse 100 100 Oximetry - Reevaluation(s) Reevaluation #1: 12/26/16 12:27 pt improved with meds in the ED. Currently resting 12/26/16 12:28 - Consultations Consultation #1: 12/26/16 12:26 Dr moncada nephrology consulted. will eval pt during admission and arrange for dialysis tomorrow ED Medical Decision Making - Lab Data Result diagrams: 12/26/16 09:33 12/26/16 09:33 Lab Results 12/26/16 12/26/16 12/26/16 Range/Units 09:33 09:33 09:33 WBC 5.8 (4.5-11.0) K/mm3 RBC 3.34 L (3.65-5.03) M/mm3 Hgb 9.8 L (10.1-14.3) gm/dl Hct 30.1 L (30.3-42.9) % MCV 90 (79-97) fl MCH 30 (28-32) pg MCHC 33 (30-34) % RDW 17.4 H (13.2-15.2) % Plt Count 292 (140-440) K/mm3 Lymph % (Auto) 10.7 L (13.4-35.0) % [place] % (Auto) 10.0 H (0.0-7.3) % Eos % (Auto) 0.7 (0.0-4.3) % Baso % (Auto) 0.7 (0.0-1.8) % Lymph # 0.6 L (1.2-5.4) K/mm3 [place] # 0.6 (0.0-0.8) K/mm3 Eos # 0.0 (0.0-0.4) K/mm3 Baso # 0.0 (0.0-0.1) K/mm3 Seg Neutrophils % 77.9 H (40.0-70.0) % Seg Neutrophils # 4.6 (1.8-7.7) K/mm3 PT 12.8 (12.2-14.9) Sec. INR 0.97 (0.87-1.13) Sodium 137 (137-145) mmol/L Potassium 4.9 (3.6-5.0) mmol/L Chloride 90.9 L (98-107) mmol/L Carbon Dioxide 23 (22-30) mmol/L Anion Gap 28 mmol/L BUN 45 H (7-17) mg/dL Creatinine 7.9 H (0.7-1.2) mg/dL Estimated GFR 7 ml/min BUN/Creatinine Ratio 5.69 % Glucose 188 H (65-100) mg/dL Calcium 8.9 (8.4-10.2) mg/dL Total Bilirubin 0.4 (0.1-1.2) mg/dL AST 69 H (5-40) units/L ALT 463 H (7-56) units/L Alkaline Phosphatase 158 H (35-129) units/L Total Creatine Kinase 144 H (30-135) units/L CK-MB (CK-2) 2.5 (0.0-4.0) ng/mL CK-MB (CK-2) Rel Index 1.7 (0-4) Troponin T 0.581 H* (0.00-0.029) ng/mL Total Protein 7.7 (6.3-8.2) g/dL Albumin 3.9 (3.9-5) g/dL Albumin/Globulin Ratio 1.0 % Triglycerides 89 (2-149) mg/dL Cholesterol 150 (50-199) mg/dL LDL Cholesterol Direct 74 (50-130) mg/dL HDL Cholesterol 59 (40-59) mg/dL Cholesterol/HDL Ratio 2.54 % Lipase 42 (13-60) units/L - Radiology Data Radiology results: report reviewed Abdominal series x-ray, no acute findings. No air-fluid levels Chest x-ray: Mild volume overload - Medical Decision Making Patient admitted to the hospital due to gastroparesis and uncontrolled hypertension. Patient on cardiac drip and received Dilaudid, Zofran, Ativan, and Benadryl in the ED. Patient has elevation in LFTs compared to previous visit. She has had previous cholecystectomy and with a normal lipase. Patient also has elevated troponin but she has chronic troponin elevation likely secondary to underlying renal disease. Chest x-ray reveals mild volume overloaded patient is scheduled for dialysis tomorrow. - Differential Diagnosis gastroparesis, chronic pain, narcotic dependence, pancreatitis, hepatitis Critical Care Time: No Critical care attestation.: If time is entered above; I have spent that time in minutes in the direct care of this critically ill patient, excluding procedure time. ED Disposition Clinical Impression: End stage renal disease on dialysis, Gastroparesis due to DM, Chronic narcotic dependence, Accelerated hypertension, Abdominal pain, Elevated LFTs, Elevated troponin Congestive heart failure Qualifiers: Congestive heart failure chronicity: acute Disposition: OP ADMITTED IP TO THIS HOSP Is pt being admited?: Yes Condition: Stable Time of Disposition: 11:48 (DR Coto/hosp)
--- NOTE | 2016-12-26 10:42 | XRay Report ---
AP CHEST History: Shortness of breath. Findings: Mild increase in cardiomegaly and pulmonary venous congestion is demonstrated since 12/18/16. The lungs are generally clear. No large pleural effusion or infiltrate. Right [id number] is unchanged in position. Impression: Mild volume overload.
[2016-12-26 11:13] LABS: Albumin 3.9 g/dL (3.9-5); BUN/Creatinine Ratio 5.69; Bilirubin,Total 0.4 mg/dL (0.1-1.2); Calcium 8.9 mg/dL (8.4-10.2); Chloride 90.9 mmol/L (98-107); Potassium 4.9 mmol/L (3.6-5.0); Total Protein 7.7 g/dL (6.3-8.2)
--- NOTE | 2016-12-26 11:16 | XRay Report ---
ABDOMEN TWO VIEWS: History: Abdominal pain, vomiting. There is no evidence of free air beneath the diaphragms. The gas pattern within the abdomen is unremarkable. There is no evidence of bowel dilatation, significant air-fluid levels, or masses. Cholecystectomy changes and coiling material in the stef hepatis is noted. Bilateral essure devices in the pelvis. IMPRESSION: No acute abdominal process identified.
[2016-12-26] MEDS ORDERED: ZOFRAN ONE (14:53)
[2016-12-26] MEDS ORDERED: DILAUDID ONE (14:53)
[2016-12-26] MEDS ORDERED: ATIVAN ONE (14:53)
[2016-12-26] MEDS ORDERED: NACL 0.9% 100 ML IV PRN (15:31)
--- NOTE | 2016-12-26 15:37 | Consultation ---
History of Present Illness - Reason for Consult Consult date: 12/26/16 end stage renal disease Requesting physician: WILBER PALACIOS - History of Present Illness 36-year-old lady with a history of diabetes mellitus, hypertension, complicated by end-stage renal disease on hemodialysis. Patient also has diabetic gastroparesis/GERD and has had numerous hospitalizations with exacerbations. More recently over the last couple of months, she had gastro-intenstinal bleeding which was quite severe with hemoglobin dropping as low as 4 g/dL. She actually had bleeding ulcers which were treated. Some exacerbations of her gastroparesis are associated with malignant hypertension due to intolerance of oral medications and sometimes with pulmonary edema. Patient went to her usual dialysis on Tuesday and tolerated her treatment with no problems she states. Tuesday morning she woke up with epigastric pain which was constant and severe radiating to her back improves with lying down worsened on getting up. She was dry heaving with nausea and the pain just kept worsening. Patient was unable to keep her oral antibiotics as medications down and so finally she came to the emergency room for evaluation. She admits to shortness of breath but no chest pain but she has some swelling of her legs. She denies any diarrhea. No hematemesis, melena or hematochezia. Past History Past Medical History: diabetes (complications of by retinopathy, neuropathy, gastroparesis and nephropathy), dialysis, ESRD, heart failure, hypertension, hyperlipidemia, other (gastroparesis) Past Surgical History: cholecystectomy, , Other (bilateral tubal ligation, right upper arm AV fistula, Retinal laser photocoagulation therapy, Permacath Placement) Social history: single, lives with family (lives with her 3 children. Her mother who lives close by helps her out with the children when she is hospitalized. 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 denies: smoking, alcohol abuse, prescription drug abuse, IV drug use Family history: CAD (father of myocardial infarction age 56), cancer ( mother had lung cancer. She is alive), diabetes (both parents had diabetes), hypertension (both parents) Medications and Allergies Allergies Allergy/AdvReac Type Severity Reaction Status Date / Time lisinopril Allergy Shortness Verified 09/07/16 11:27 of Breath morphine Allergy Hives Verified 09/17/16 21:15 Penicillins Allergy Hives Verified 09/07/16 11:27 Home Medications Medication Instructions Recorded Confirmed Last Taken Type HYDROcodone/APAP 5-325 [[place] 1 each PO Q4H PRN #10 tablet 12/21/16 Unknown Rx 5-325 mg TAB] Pantoprazole [Protonix TAB] 40 mg PO DAILY #30 tablet 12/21/16 Unknown Rx amLODIPine [Norvasc] 10 mg PO QDAY #30 tablet 12/21/16 Unknown Rx cloNIDine [Catapres] 0.2 mg PO Q8HR #90 tablet 12/21/16 Unknown Rx hydrALAZINE [Apresoline TAB] 100 mg PO TID #90 tab 12/21/16 Unknown Rx Active Meds: Active Medications Nicardipine/Sodium Chloride (Cardene Drip 40 Mg/200 Ml) 40 mg in 200 mls @ 25 mls/hr IV TITR GABRIELLA; 5 MG/HR PRN Reason: Protocol Last Admin: 12/26/16 10:50 Dose: 5 mg/hr, 25 mls/hr Review of Systems All systems: negative (Constitutional: no fever but admits to chills. No anorexia or weight loss. HEENT: No sore throat or sinus drainage no hearing or vision impairment . Cardiovascular: No chest pain, see history of present illness Respiratory: No cough, sputum, shortness of breath, hemoptysis or wheezing. Gastrointestinal: See history of present illness Genitourinary: No frequency urgency dysuria or hematuria. hematologic: No abnormal bleeding or bruising. Integumentary: Admits to itching but no rash. Neurological: Admits to dizziness. No headache no focal weakness or numbness, no syncope or seizures. Musculoskeletal: Admits to joint pains no stiffness. Psychiatry: Admits to anxiety and depression) Exam - Vital Signs Vital signs: Vital Signs Temp Pulse Resp BP Pulse Ox 98.0 F 115 H 32 H 194/143 100 12/26/16 07:38 12/26/16 07:38 12/26/16 07:38 12/26/16 07:38 12/26/16 07:38 - Physical Exam Narrative exam: Young -Kittitian female lying in bed in mild to moderate distress from pain HEENT normocephalic atraumatic, pupils equal reactive to light, pink, clear oropharynx Neck supple, no thyromegaly no jugular venous distention CVS S1-S2 regular rate rhythm without murmur, rub or gallop Chest clear to auscultation Abdomen soft , obese, tenderness was in the epigastrium no organomegaly no bruit bowel sounds present Extremities mild edema no cyanosis or clubbing Genitourinary deferred Neuro awake, alert oriented x3 no gross deficit Results - Lab Results 12/26/16 09:33 03 09:33 Most recent lab results Calcium 8.9 mg/dL (8.4-10.2) 12/26/16 09:33 Assessment and Plan - Patient Problems (1) Accelerated hypertension Current Visit: Yes Status: Acute Plan to address problem: Due to intolerance of oral anti-hypertensive medications. Blood pressure has improved on Cardene drip and is now 142/60 mmHg. Resume oral antihypertensive medications once patient is able to tolerate orally (2) End stage renal disease on dialysis Current Visit: Yes Status: Acute Plan to address problem: Hemodialysis on Tuesday, Tuesday and Tuesday schedule. Dialysis not absolutely indicated today. Volume status fairly stable and electrolytes acceptable. (3) Gastroparesis due to DM Current Visit: Yes Status: Acute Plan to address problem: Anti-emetic medications. (4) Anemia in chronic kidney disease Current Visit: No Status: Acute Plan to address problem: Erythropoietin on dialysis. (5) Diabetes mellitus Current Visit: No Status: Acute Qualifiers: Diabetes mellitus type: D Diabetes mellitus complication status: D Diabetes mellitus complication detail: D Diabetic retinopathy severity: D Proliferative retinopathy type: P Diabetes mellitus macular edema: D Diabetes mellitus prison insulin use: D Laterality: L Chronic kidney disease stage: C Plan to address problem: Blood sugar control by primary attending (6) Elevated LFTs Current Visit: Yes Status: Acute Plan to address problem: Follow-up LFTs in the morning. GI consult
--- NOTE | 2016-12-26 16:02 | Admit Criteria Form ---
Admission Criteria Documentation: HYPERTENSION Clinical Indications for Admission to Inpatient Care ( Place "X" for any and all applicable criteria): Admission is indicated for ANY ONE of the following(1)(2)(3)(4): [ ]I. Hypertensive emergency, with evidence of acute and progressing target organ disease as indicated by ANY ONE of the following: [ ]a) Hypertensive encephalopathy (eg, confusion, altered mental status) [ ]b) Cerebral infarction [ ]c) Intracranial hemorrhage [ ]d) Myocardial ischemia or infarction [ ]e) Pulmonary edema [ ]f) Aortic dissection [ ]g) Seizure [ ]h) Acute renal insufficiency [ ]i) Papilledema [ ]j) Microangiopathic hemolytic anemia [ ]II. Adrenergic crisis (eg, severe hypertension due to pheochromocytoma crisis, cocaine or amphetamine intoxication, or clonidine withdrawal) [X ]III. Severe hypertension (SBP greater than 180 mmHg or DBP greater than 110 mmHg or greater than the 95th percentile for age, gender, and height in pediatric patients) that cannot be controlled (eg, to SBP less than 160 mmHg and DBP less than 100 mmHg in adults) by treatment with oral medication in emergency department or observation care Extended stay beyond goal length of stay may be needed for(11)(12)(13): [ ]a) Persistent hypertensive encephalopathy [ ]b) Continuation of pulmonary edema [ ]c) Recurring or persistent severe hypertension [ ]d) Target organ damage (eg, angina, stroke, aortic dissection) [ ]e) Associated renal insufficiency The original [employer] content created by [employer] has been revised. The portions of the content which have been revised are identified through the use of italic text or in bold, and [facility] has neither reviewed nor approved the modified material. All other unmodified content is copyright [facility]. Please see references footnoted in the original [facility] edition 2016 Admission Criteria Met: Yes
[2016-12-26] MEDS ORDERED: ZOFRAN IM ONE (19:20)
--- NOTE | 2016-12-26 23:54 | Event Note ---
Date: 12/26/16 See H/p in reports HTN emergency Gastroparesis IDDM PUD Noncompliance Opiate dependence
[2016-12-27] MEDS: CATAPRES PO SCH ×4 (00:12→22:00)
[2016-12-27] MEDS: ZOFRAN IV PRN (01:02)
[2016-12-27] MEDS: NORCO 5/325 PO PRN ×3 (01:02→15:25)
[2016-12-27] MEDS: BENADRYL IV PRN ×3 (06:54→21:38)
[2016-12-27 07:58] LABS: Hematocrit 26.6 % (30.3-42.9); Hemoglobin 8.7 gm/dl (10.1-14.3); Mean Corpuscular HGB Conc 33 % (30-34); Mean Corpuscular Hemoglobin 29 pg (28-32); Mean Corpuscular Volume 90 fl (79-97); Platelet Count 292 K/mm3 (140-440); Red Blood Count 2.95 M/mm3 (3.65-5.03); Red Cell Distribution Width 17.2 % (13.2-15.2); White Blood Count 5.9 K/mm3 (4.5-11.0)
[2016-12-27] MEDS: APRESOLINE PO SCH ×3 (08:16→21:42)
[2016-12-27] MEDS ORDERED: REGLAN IV PRN (09:21)
[2016-12-27] MEDS ORDERED: PROTONIX PO SCH (10:00)
[2016-12-27] MEDS ORDERED: PROTONIX IV SCH (10:00)
--- NOTE | 2016-12-27 10:17 | History and Physical Report ---
CHIEF COMPLAINT: Vomiting for 2 days. HISTORY OF PRESENT ILLNESS: A 36-year-old female with multiple medical problems including gastroparesis, peptic ulcer disease, hypertensive emergencies, gastroparesis, diabetes, CHF, comes in for abdominal pain, vomiting, and shortness of breath. Vomiting about 3 or 4-6 times a day for the last 2 days. The abdominal pain of 10/10. Noncompliant with medications because of vomiting. The patient also dependent on narcotics, especially oxycodone 30 mg p.o. q.i.d. p.r.n. The patient has been dry heaving and complaining of shortness of breath Hyperventilating. No fever, no chills. End-stage renal disease, on hemodialysis. PAST MEDICAL HISTORY: Significant for hypertension, uncontrolled; congestive heart failure; diabetes; end-stage renal disease on hemodialysis Tuesday, Tuesday, Tuesday; asthma, arthritis; COPD; and gastroparesis. PAST SURGICAL HISTORY: , tubal ligation, fistula right arm, and cholecystectomy. SOCIAL HISTORY: Does not smoke. No alcohol, no recreational drugs. CURRENT MEDICATIONS: [place] 5/325 q. 4 hours p.r.n., Protonix 40 mg daily, amlodipine 10 mg daily, clonidine 0.2 q. 8 hours, and hydralazine 100 mg p.o. t.i.d. REVIEW OF SYSTEMS: Significant for persistent vomiting and abdominal pain, 10/10. Some shortness of breath present. No fever, no chills. Otherwise, a 14-point review of systems is negative. PHYSICAL EXAMINATION: GENERAL: Young female, cooperative during examination, dry heaving in front of me. VITAL SIGNS: Blood pressure is 207/109, temperature is 98.0, pulse is 115, and respiratory rate 32. HEENT: Unremarkable. Tongue dry. NECK: Supple, no lymphadenopathy, no thyromegaly. LUNGS: Clear to auscultation and percussion. Good air entry. CARDIOVASCULAR: S1, S2 heard. No gallop, no murmur, no rub. Apical impulse in left fifth intercostal space and midclavicular line. ABDOMEN: Tender in the epigastric region. Bowel sounds are normal. EXTREMITIES: No guarding, no rigidity. CENTRAL NERVOUS SYSTEM: Alert and oriented x 4. Nonfocal exam. SKIN: Normal. LABORATORY DATA: Labs were significant for white count of 5800, H and H is 9.8 and 30.1, platelet count is 292,000. Sodium is 137, potassium is 4.9, BUN and creatinine is 45 and 7.9. Troponin is 0.581. AST 69, ALT is 463, alkaline phosphatase of 158. ASSESSMENT AND PLAN: 1. Hypertensive emergency. The patient on Cardene drip, downgraded to telemetry because of the blood pressures came under control while in the ER. The patient continued on her oral antihypertensives and Catapres patch because the patient is not able to tolerate clonidine. 2. Gastroparesis, IV Reglan 10 mg q.6 hours and Zofran. 3. End-stage renal disease, on hemodialysis. Continue hemodialysis. consulted. 4. Type 2 diabetes, coverage for now. 5. Opiate dependence. The patient to be counseled when she is more stable. 6. Peptic ulcer disease. Continue IV Protonix 40 mg q.12 hours. 7. Deep venous thrombosis prophylaxis, heparin 5000 q.12 hours. EMERGENCY DEPARTMENT COURSE: The patient was downgraded from ICU admission to telemetry because the Cardizem drip was discontinued in the ER after the blood pressures were normal and oral antihypertensive were initiated. JOB# [id number] NEGAR/NTS
--- NOTE | 2016-12-27 11:16 | Progress Note ---
Assessment and Plan - Patient Problems (1) Accelerated hypertension Current Visit: Yes Status: Acute Plan to address problem: Due to intolerance of oral anti-hypertensive medications. Blood pressure has improved now on oral antihypertensive medications (2) End stage renal disease on dialysis Current Visit: Yes Status: Acute Plan to address problem: Hemodialysis on Tuesday, Tuesday and Tuesday schedule. (3) Gastroparesis due to DM Current Visit: Yes Status: Acute Plan to address problem: Anti-emetic medications. (4) Anemia in chronic kidney disease Current Visit: No Status: Acute Plan to address problem: Erythropoietin on dialysis. (5) Diabetes mellitus Current Visit: No Status: Acute Qualifiers: Diabetes mellitus type: D Diabetes mellitus complication status: D Diabetes mellitus complication detail: D Diabetic retinopathy severity: D Proliferative retinopathy type: P Diabetes mellitus macular edema: D Diabetes mellitus terminal carman insulin use: D Laterality: L Chronic kidney disease stage: C Plan to address problem: Blood sugar control by primary attending (6) Elevated LFTs Current Visit: Yes Status: Acute Plan to address problem: Follow-up LFTs in the morning. Subjective Date of service: 12/27/16 Principal diagnosis: ESRD Objective - Exam Narrative Exam: Young -Marshallese female lying in bed in mild to moderate distress from pain HEENT normocephalic atraumatic, pupils equal reactive to light, pink, clear oropharynx Neck supple, no thyromegaly no jugular venous distention CVS S1-S2 regular rate rhythm without murmur, rub or gallop Chest clear to auscultation Abdomen soft , obese, tenderness was in the epigastrium no organomegaly no bruit bowel sounds present Extremities mild edema no cyanosis or clubbing Neuro awake, alert oriented x3 no gross deficit - Vital Signs Vital signs: Vital Signs - 12hr 12/26/16 12/26/16 12/27/16 23:20 23:30 00:00 Temperature 98.3 F Pulse Rate 91 H 94 H Pulse Rate [ 104 H Right] Respiratory 18 16 20 Rate Respiratory Rate [Upper Anterior Abdomen] Blood Pressure 155/86 159/88 Blood Pressure 202/102 [Right Arm] O2 Sat by Pulse 92 96 Oximetry 12/27/16 12/27/16 12/27/16 05:34 06:26 07:00 Temperature 98.3 F 98.5 F Pulse Rate 95 H Pulse Rate [ 95 H 86 Right] Respiratory 20 20 Rate Respiratory Rate [Upper Anterior Abdomen] Blood Pressure 159/79 Blood Pressure 159/79 159/78 [Right Arm] O2 Sat by Pulse 100 93 Oximetry 12/27/16 10:00 Temperature Pulse Rate 84 Pulse Rate [ Right] Respiratory Rate Respiratory 20 Rate [Upper Anterior Abdomen] Blood Pressure Blood Pressure [Right Arm] O2 Sat by Pulse Oximetry - Lab 12/27/16 06:45 12/26/16 09:33 Most recent lab results Calcium 8.9 mg/dL (8.4-10.2) 12/26/16 09:33
[2016-12-27] MEDS: NOVOLOG SUB-Q SCH ×3 (11:19→22:00)
[2016-12-27] MEDS ORDERED: NOVOLOG SUB-Q SCH ×2 (11:30)
[2016-12-27] MEDS ORDERED: NACL 0.9 (PRIMING MACHINE ONLY DIALYSIS) MC ONE (12:08)
[2016-12-27] MEDS: NORVASC PO SCH (15:22)
[2016-12-27] MEDS: HEPARIN SUB-Q SCH ×2 (15:22→22:00)
[2016-12-27] MEDS: PROTONIX IV SCH ×2 (15:23→21:41)
--- NOTE | 2016-12-27 16:33 | Progress Note ---
Assessment and Plan Assessment and plan: HTN emergency severe Gastroparesis N/V due to gastroparesis Insulin dependent DM ESRD on HD h/o PUD Noncompliance Opiate dependence Plan: Resume home meds for BP control prn iv hydralazine cont on reglan, carafate, PPI advance diet as tolerates, insulin coverage cont medication as needed for nausea and pain management HD per nephrology recommendation heparin for DVT Px History Interval history: Patient seen and examined. Medical records and medication list reviewed. c/o abdominal pain and nausea got HD today Hospitalist Physical - Physical exam Narrative exam: GENERAL: well-developed and well-nourished AAF lying on bed appeared to be in no discomfort. HEENT: Normocephalic. Atraumatic. No conjunctival congestion or icterus. Patient has moist mucous membranes. NECK: Supple. Trachea midline. CHEST/LUNGS: Clear to auscultated bilaterally, breathing nonlabored. No wheezes crackles or rhonchi. HEART/CARDIOVASCULAR: Regular in rate and rhythm. S1 and S2 positive. ABDOMEN: Abdomen is soft, epigastric tenderness. Patient has normal bowel sounds. SKIN: There is no rash. Warm and dry. NEURO: No focal motor deficit. Follows command. MUSCULOSKELETAL: No joint effusion or tenderness. EXTRIMITY: No edema, no cyanosis or clubbing. PSYCH: Cooperative. - Constitutional Vitals: Temp Pulse Resp BP Pulse Ox 98.5 F 93 H 18 201/95 93 12/27/16 15:10 12/27/16 15:10 12/27/16 15:25 12/27/16 15:10 12/27/16 07:00 Results - Labs CBC & Chem 7: 12/27/16 06:45 12/26/16 09:33 Labs: Laboratory Last Values WBC 5.9 K/mm3 (4.5-11.0) 12/27/16 06:45 RBC 2.95 M/mm3 (3.65-5.03) L 12/27/16 06:45 Hgb 8.7 gm/dl (10.1-14.3) L 12/27/16 06:45 Hct 26.6 % (30.3-42.9) L 12/27/16 06:45 MCV 90 fl (79-97) 12/27/16 06:45 MCH 29 pg (28-32) 12/27/16 06:45 MCHC 33 % (30-34) 12/27/16 06:45 RDW 17.2 % (13.2-15.2) H 12/27/16 06:45 Plt Count 292 K/mm3 (140-440) 12/27/16 06:45 Lymph % (Auto) 10.7 % (13.4-35.0) L 12/26/16 09:33 [place] % (Auto) 10.0 % (0.0-7.3) H 12/26/16 09:33 Eos % (Auto) 0.7 % (0.0-4.3) 12/26/16 09:33 Baso % (Auto) 0.7 % (0.0-1.8) 12/26/16 09:33 Lymph # 0.6 K/mm3 (1.2-5.4) L 12/26/16 09:33 [place] # 0.6 K/mm3 (0.0-0.8) 12/26/16 09:33 Eos # 0.0 K/mm3 (0.0-0.4) 12/26/16 09:33 Baso # 0.0 K/mm3 (0.0-0.1) 12/26/16 09:33 Seg Neutrophils % 77.9 % (40.0-70.0) H 12/26/16 09:33 Seg Neutrophils # 4.6 K/mm3 (1.8-7.7) 12/26/16 09:33 PT 12.8 Sec. (12.2-14.9) 12/26/16 09:33 INR 0.97 (0.87-1.13) 12/26/16 09:33 Sodium 137 mmol/L (137-145) 12/26/16 09:33 Potassium 4.9 mmol/L (3.6-5.0) 12/26/16 09:33 Chloride 90.9 mmol/L (98-107) L 12/26/16 09:33 Carbon Dioxide 23 mmol/L (22-30) 12/26/16 09:33 Anion Gap 28 mmol/L 12/26/16 09:33 BUN 45 mg/dL (7-17) H 12/26/16 09:33 Creatinine 7.9 mg/dL (0.7-1.2) H 12/26/16 09:33 Estimated GFR 7 ml/min 12/26/16 09:33 BUN/Creatinine Ratio 5.69 % 12/26/16 09:33 Glucose 188 mg/dL (65-100) H 12/26/16 09:33 Calcium 8.9 mg/dL (8.4-10.2) 12/26/16 09:33 Total Bilirubin 0.4 mg/dL (0.1-1.2) 12/26/16 09:33 AST 69 units/L (5-40) H 12/26/16 09:33 ALT 463 units/L (7-56) H 12/26/16 09:33 Alkaline Phosphatase 158 units/L (35-129) H 12/26/16 09:33 Total Creatine Kinase 144 units/L (30-135) H 12/26/16 09:33 CK-MB (CK-2) 2.5 ng/mL (0.0-4.0) 12/26/16 09:33 CK-MB (CK-2) Rel Index 1.7 (0-4) 12/26/16 09:33 Troponin T 0.581 ng/mL (0.00-0.029) H* 12/26/16 09:33 Total Protein 7.7 g/dL (6.3-8.2) 12/26/16 09:33 Albumin 3.9 g/dL (3.9-5) 12/26/16 09:33 Albumin/Globulin Ratio 1.0 % 12/26/16 09:33 Triglycerides 89 mg/dL (2-149) 12/26/16 09:33 Cholesterol 150 mg/dL (50-199) 12/26/16 09:33 LDL Cholesterol Direct 74 mg/dL (50-130) 12/26/16 09:33 HDL Cholesterol 59 mg/dL (40-59) 12/26/16 09:33 Cholesterol/HDL Ratio 2.54 % 12/26/16 09:33 Lipase 42 units/L (13-60) 12/26/16 09:33 HCG, Qual Negative (Negative) 12/26/16 11:35
[2016-12-27] MEDS: DILAUDID IV PRN ×2 (17:36→21:34)
--- NOTE | 2016-12-27 18:44 | Consultation ---
History of Present Illness Consult date: 12/27/16 Requesting physician: BART MCLAUGHLIN History of present illness: PULMONARY CONSULT NOTE (Full dictation # ) Please see dictated notes for full details Past History Past Medical History: diabetes (complications of by retinopathy, neuropathy, gastroparesis and nephropathy), dialysis, ESRD, heart failure, hypertension, hyperlipidemia, other (gastroparesis) Past Surgical History: cholecystectomy, , Other (bilateral tubal ligation, right upper arm AV fistula, Retinal laser photocoagulation therapy, Permacath Placement) Social history: single, lives with family (lives with her 3 children. Her mother who lives close by helps her out with the children when she is hospitalized. 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 denies: smoking, alcohol abuse, prescription drug abuse, IV drug use Family history: CAD (father of myocardial infarction age 56), cancer ( mother had lung cancer. She is alive), diabetes (both parents had diabetes), hypertension (both parents) Medications and Allergies Allergies Allergy/AdvReac Type Severity Reaction Status Date / Time lisinopril Allergy Shortness Verified 09/07/16 11:27 of Breath morphine Allergy Hives Verified 09/17/16 21:15 Penicillins Allergy Hives Verified 09/07/16 11:27 Home Medications Medication Instructions Recorded Confirmed Last Taken Type HYDROcodone/APAP 5-325 [[place] 1 each PO Q4H PRN #10 tablet 12/21/16 Unknown Rx 5-325 mg TAB] Pantoprazole [Protonix TAB] 40 mg PO DAILY #30 tablet 12/21/16 Unknown Rx amLODIPine [Norvasc] 10 mg PO QDAY #30 tablet 12/21/16 Unknown Rx cloNIDine [Catapres] 0.2 mg PO Q8HR #90 tablet 12/21/16 Unknown Rx hydrALAZINE [Apresoline TAB] 100 mg PO TID #90 tab 12/21/16 Unknown Rx Active Meds: Active Medications Acetaminophen/Hydrocodone Bitart ([place] 5/325) 1 each PO Q4H PRN PRN Reason: Pain, Moderate (4-6) Last Admin: 12/27/16 15:25 Dose: 1 each Amlodipine Besylate (Norvasc) 10 mg PO QDAY GABRIELLA Last Admin: 03/13/17 15:22 Dose: 10 mg Clonidine HCl (Catapres) 0.2 mg PO Q8HR [facility] Last Admin: 12/27/16 15:24 Dose: 0.2 mg Diphenhydramine HCl (Benadryl) 25 mg IV Q6H PRN PRN Reason: Itching Last Admin: 12/27/16 15:26 Dose: 25 mg Epoetin Armando (Epogen) 20,000 unit IV CELENA PRN PRN Reason: hemodialysis Heparin Sodium (Porcine) (Heparin) 5,000 unit SUB-Q Q12HR [facility] Last Admin: 12/27/16 15:22 Dose: 5,000 unit Hydralazine HCl (Apresoline) 100 mg PO TID [facility] Last Admin: 12/27/16 15:24 Dose: 100 mg Hydromorphone HCl (Dilaudid) 1 mg IV Q4H PRN PRN Reason: Pain , Severe (7-10) Last Admin: 12/27/16 17:36 Dose: 1 mg Sodium Chloride (Nacl 0.9%) 100 mls @ 999 mls/hr IV CELENA PRN PRN Reason: Hypotension Influenza Virus Vaccine Quadrival (Fluarix Quad [id number](36 Mos+)) 60 mcg IM .ONCE ONE Stop: 12/28/16 12:01 Insulin Aspart (Novolog) 0 units SUB-Q ACHS [facility] PRN Reason: Protocol Last Admin: 12/27/16 17:05 Dose: Not Given Metoclopramide HCl (Reglan) 5 mg IV Q6H PRN PRN Reason: Nausea And Vomiting Ondansetron HCl (Zofran) 4 mg IV Q4H PRN PRN Reason: Nausea And Vomiting Last Admin: 12/27/16 01:02 Dose: 4 mg Pantoprazole Sodium (Protonix) 40 mg IV BID [facility] Last Admin: 12/27/16 15:23 Dose: 40 mg Physical Examination Vital signs: Vital Signs Temp Pulse Resp BP Pulse Ox 98.0 F 115 H 32 H 194/143 100 12/26/16 07:38 12/26/16 07:38 12/26/16 07:38 12/26/16 07:38 12/26/16 07:38 Results - Laboratory Findings CBC and BMP: 12/27/16 06:45 12/26/16 09:33 PT/INR, D-dimer PT 12.8 Sec. (12.2-14.9) 12/26/16 09:33 INR 0.97 (0.87-1.13) 12/26/16 09:33 Abnormal lab findings: Abnormal Labs 12/27/16 06:45 RBC 2.95 L Hgb 8.7 L Hct 26.6 L RDW 17.2 H
[2016-12-27] MEDS ORDERED: APRESOLINE IV PRN (23:47)
[2016-12-28] MEDS: ZOFRAN IV PRN ×5 (00:05→17:43)
[2016-12-28] MEDS: DILAUDID IV PRN ×6 (01:43→22:03)
[2016-12-28 02:19] LABS: BUN/Creatinine Ratio 4.13; Calcium 8.1 mg/dL (8.4-10.2); Chloride 90.6 mmol/L (98-107); Potassium 5.4 mmol/L (3.6-5.0)
[2016-12-28] MEDS: BENADRYL IV PRN ×5 (03:25→23:34)
[2016-12-28] MEDS: CATAPRES PO SCH ×3 (06:13→22:05)
[2016-12-28] MEDS: NOVOLOG SUB-Q SCH ×4 (08:30→22:24)
[2016-12-28] MEDS ORDERED: D50W (25GM) IV ONE (10:00)
[2016-12-28] MEDS: CARAFATE PO SCH ×4 (10:49→22:06)
[2016-12-28] MEDS: NORVASC PO SCH (10:49)
[2016-12-28] MEDS: APRESOLINE PO SCH ×3 (10:50→22:04)
[2016-12-28] MEDS: HEPARIN SUB-Q SCH ×2 (10:50→22:06)
[2016-12-28] MEDS: PROTONIX PO SCH (10:51)
[2016-12-28] MEDS ORDERED: FLUARIX QUAD 2016-2017(36 MOS+) IM ONE (12:00)
--- NOTE | 2016-12-28 17:08 | Progress Note ---
Assessment and Plan (1) Accelerated hypertension Current Visit: Yes Status: Acute Plan to address problem: Due to intolerance of oral anti-hypertensive medications. Blood pressure increasing again, likely due to pain. Pt tolerating oral BP meds (2) End stage renal disease on dialysis Current Visit: Yes Status: Acute Plan to address problem: Hemodialysis on Tuesday, Tuesday and Tuesday schedule. (3) Gastroparesis due to DM Current Visit: Yes Status: Acute Plan to address problem: Anti-emetic medications. Pain management (4) Anemia in chronic kidney disease Current Visit: No Status: Acute Plan to address problem: Erythropoietin on dialysis. (5) Diabetes mellitus Current Visit: No Status: Acute Qualifiers: Diabetes mellitus type: D Diabetes mellitus complication status: D Diabetes mellitus complication detail: D Diabetic retinopathy severity: D Proliferative retinopathy type: P Diabetes mellitus macular edema: D Diabetes mellitus watermaster insulin use: D Laterality: L Chronic kidney disease stage: C Plan to address problem: Blood sugar control by primary attending (6) Elevated LFTs Current Visit: Yes Status: Acute Plan to address problem: Follow-up LFTs in the morning. Subjective Date of service: 12/28/16 Principal diagnosis: ESRD Interval history: Pt seen lying in bed, NAD. reports nausea, states it is worse today than it was yesterday abdominal pain Objective - Exam Narrative Exam: Young -Cypriot female lying in bed in mild distress from pain HEENT normocephalic atraumatic, pupils equal reactive to light, pink, clear oropharynx Neck supple, no thyromegaly no jugular venous distention CVS S1-S2 regular rate rhythm without murmur, rub or gallop Chest clear to auscultation Abdomen soft , obese, tenderness was in the epigastrium no organomegaly no bruit bowel sounds present Extremities mild edema no cyanosis or clubbing Neuro awake, alert oriented x3 no gross deficit - Vital Signs Vital signs: Vital Signs - 12hr 12/28/16 12/28/16 12/28/16 08:50 10:49 12:55 Temperature 98.7 F 98.7 F Pulse Rate 84 Pulse Rate [ 88 88 Left Radial] Respiratory 20 20 Rate Blood Pressure 208/95 208/98 [Left Arm] O2 Sat by Pulse 98 98 Oximetry - Lab 12/27/16 06:45 12/28/16 01:40 Most recent lab results Calcium 8.1 mg/dL (8.4-10.2) L 12/28/16 01:40
--- NOTE | 2016-12-28 18:27 | Event Note ---
Date: 12/28/16 Patient seen and examined. I reviewed above [employer] notes which I agree with. Assessment and Plan discussed earlier. We will resume other oral antihypertensives medications. Add IV labetalol as needed if unable to tolerate orally. Hemodialysis in the morning.
[2016-12-28] MEDS ORDERED: NORMODYNE IV PRN (18:28)
[2016-12-28] MEDS ORDERED: KIONEX PO ONE (19:00)
--- NOTE | 2016-12-28 19:54 | Progress Note ---
Assessment and Plan Patient complaining cough. Coughing up yellow sputum. No complaint of chest pain or shortness of breath.O2 satuaration 95% on room air. - Patient Problems (1) Acute bronchitis Current Visit: Yes Status: Acute Qualifiers: Bronchitis organism: B Plan to address problem: Sputum for gram stain and C&S. Levaquine 250 mg po qd x 5 days. (2) Accelerated hypertension Current Visit: Yes Status: Acute Plan to address problem: Management as per nephrology and primary care. (3) ESRD on hemodialysis Current Visit: No Status: Acute Plan to address problem: Management as per nephrology. 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 (5) Chronic narcotic dependence Current Visit: Yes Status: Acute Plan to address problem: Management as per primary care. Subjective Date of service: 12/28/16 Principal diagnosis: ESRD Interval history: Patient complaining cough. Coughing up yellow sputum. No complaint of chest pain or shortness of breath.O2 satuaration 95% on room air. Objective Vital Signs - 12hr 12/28/16 12/28/16 12/28/16 08:50 10:49 12:55 Temperature 98.7 F 98.7 F Pulse Rate 84 Pulse Rate [ 88 88 Left Radial] Respiratory 20 20 Rate Blood Pressure 208/95 208/98 [Left Arm] O2 Sat by Pulse 98 98 Oximetry 12/28/16 15:45 Temperature 98.8 F Pulse Rate Pulse Rate [ 88 Left Radial] Respiratory 20 Rate Blood Pressure 116/87 [Left Arm] O2 Sat by Pulse 95 Oximetry Constitutional: no acute distress, alert Eyes: non-icteric ENT: oropharynx moist Neck: supple, no lymphadenopathy Ascultation: Bilateral: rhonchi (few ronchi) Cardiovascular: regular rate and rhythm Gastrointestinal: normoactive bowel sounds, soft, non-tender Integumentary: normal Extremities: no cyanosis, no edema Neurologic: normal mental status, non-focal exam, pupils equal and round, CN II- XII normal Psychiatric: mood appropriate CBC and BMP: 12/27/16 06:45 03/14/17 01:40 ABG, PT/INR, D-dimer: PT/INR, D-dimer PT 12.8 Sec. (12.2-14.9) 12/26/16 09:33 INR 0.97 (0.87-1.13) 12/26/16 09:33 Abnormal lab findings: Abnormal Labs 12/27/16 12/27/16 12/28/16 06:45 21:34 01:40 RBC 2.95 L Hgb 8.7 L Hct 26.6 L RDW 17.2 H Sodium 130 L D Potassium 5.4 H Chloride 90.6 L BUN 24 H Creatinine 5.8 H POC Glucose 140 H Calcium 8.1 L Troponin T 12/28/16 12/28/16 12/28/16 01:40 06:32 08:42 RBC Hgb Hct RDW Sodium Potassium Chloride BUN Creatinine POC Glucose 146 H Calcium Troponin T 0.537 H* 0.513 H* 12/28/16 12/28/16 12/28/16 13:04 13:08 15:47 RBC Hgb Hct RDW Sodium Potassium Chloride BUN Creatinine POC Glucose 128 H 126 H Calcium Troponin T 0.513 H* Chest x-ray: report reviewed (Mild cardiomegaly, pulmonary vascular congestion. mild volume Overload.), image reviewed
[2016-12-28] MEDS ORDERED: PROCARDIA XL PO SCH (22:00)
[2016-12-28] MEDS ORDERED: LEVAQUIN PO SCH (22:00)
[2016-12-28] MEDS: NORMODYNE PO SCH (22:04)
[2016-12-28] MEDS: PROCARDIA XL PO SCH (22:05)
[2016-12-28] MEDS: REGLAN IV PRN (22:12)
--- NOTE | 2016-12-29 01:08 | Progress Note ---
Assessment and Plan Assessment and plan: Nausea and vomiting due to gastroparesis ESRD on dialysis HTN urgency History Interval history: still nausea, vomiting Hospitalist Physical - Constitutional Vitals: Temp Pulse Resp BP Pulse Ox 98.2 F 88 18 181/89 92 12/28/16 20:53 12/28/16 20:53 12/28/16 20:53 12/28/16 20:53 12/28/16 20:53 Results - Labs CBC & Chem 7: 12/27/16 06:45 12/29/16 09:00 Labs: Laboratory Last Values WBC 5.9 K/mm3 (4.5-11.0) 12/27/16 06:45 RBC 2.95 M/mm3 (3.65-5.03) L 12/27/16 06:45 Hgb 8.7 gm/dl (10.1-14.3) L 12/27/16 06:45 Hct 26.6 % (30.3-42.9) L 12/27/16 06:45 MCV 90 fl (79-97) 12/27/16 06:45 MCH 29 pg (28-32) 12/27/16 06:45 MCHC 33 % (30-34) 12/27/16 06:45 RDW 17.2 % (13.2-15.2) H 12/27/16 06:45 Plt Count 292 K/mm3 (140-440) 12/27/16 06:45 Lymph % (Auto) 10.7 % (13.4-35.0) L 12/26/16 09:33 Collin % (Auto) 10.0 % (0.0-7.3) H 12/26/16 09:33 Eos % (Auto) 0.7 % (0.0-4.3) 12/26/16 09:33 Baso % (Auto) 0.7 % (0.0-1.8) 12/26/16 09:33 Lymph # 0.6 K/mm3 (1.2-5.4) L 12/26/16 09:33 Collin # 0.6 K/mm3 (0.0-0.8) 12/26/16 09:33 Eos # 0.0 K/mm3 (0.0-0.4) 12/26/16 09:33 Baso # 0.0 K/mm3 (0.0-0.1) 12/26/16 09:33 Seg Neutrophils % 77.9 % (40.0-70.0) H 12/26/16 09:33 Seg Neutrophils # 4.6 K/mm3 (1.8-7.7) 12/26/16 09:33 PT 12.8 Sec. (12.2-14.9) 12/26/16 09:33 INR 0.97 (0.87-1.13) 12/26/16 09:33 Sodium 130 mmol/L (137-145) L D 12/28/16 01:40 Potassium 5.4 mmol/L (3.6-5.0) H 12/28/16 01:40 Chloride 90.6 mmol/L (98-107) L 12/28/16 01:40 Carbon Dioxide 28 mmol/L (22-30) 12/28/16 01:40 Anion Gap 17 mmol/L 12/28/16 01:40 BUN 24 mg/dL (7-17) H 12/28/16 01:40 Creatinine 5.8 mg/dL (0.7-1.2) H 12/28/16 01:40 Estimated GFR 10 ml/min 12/28/16 01:40 BUN/Creatinine Ratio 4.13 % 12/28/16 01:40 Glucose 100 mg/dL (65-100) 12/28/16 01:40 POC Glucose 115 (70-105) H 12/28/16 21:14 Calcium 8.1 mg/dL (8.4-10.2) L 12/28/16 01:40 Total Bilirubin 0.4 mg/dL (0.1-1.2) 12/26/16 09:33 AST 69 units/L (5-40) H 12/26/16 09:33 ALT 463 units/L (7-56) H 12/26/16 09:33 Alkaline Phosphatase 158 units/L (35-129) H 12/26/16 09:33 Total Creatine Kinase 144 units/L (30-135) H 12/26/16 09:33 CK-MB (CK-2) 2.5 ng/mL (0.0-4.0) 12/26/16 09:33 CK-MB (CK-2) Rel Index 1.7 (0-4) 12/26/16 09:33 Troponin T 0.513 ng/mL (0.00-0.029) H* 12/28/16 13:08 Total Protein 7.7 g/dL (6.3-8.2) 12/26/16 09:33 Albumin 3.9 g/dL (3.9-5) 12/26/16 09:33 Albumin/Globulin Ratio 1.0 % 12/26/16 09:33 Triglycerides 89 mg/dL (2-149) 12/26/16 09:33 Cholesterol 150 mg/dL (50-199) 12/26/16 09:33 LDL Cholesterol Direct 74 mg/dL (50-130) 12/26/16 09:33 HDL Cholesterol 59 mg/dL (40-59) 12/26/16 09:33 Cholesterol/HDL Ratio 2.54 % 12/26/16 09:33 Lipase 42 units/L (13-60) 12/26/16 09:33 HCG, Qual Negative (Negative) 12/26/16 11:35
[2016-12-29] MEDS: DILAUDID IV PRN ×2 (01:50→05:42)
[2016-12-29] MEDS: REGLAN IV PRN (05:41)
[2016-12-29] MEDS: BENADRYL IV PRN ×2 (05:41→16:06)
[2016-12-29] MEDS: CATAPRES PO SCH ×3 (05:49→13:43)
[2016-12-29 09:35] LABS: BUN/Creatinine Ratio 3.56; Calcium 8.6 mg/dL (8.4-10.2); Potassium 5.5 mmol/L (3.6-5.0)
[2016-12-29] MEDS ORDERED: LEVAQUIN PO SCH (10:00)
[2016-12-29] MEDS ORDERED: COZAAR PO SCH (10:00)
[2016-12-29] MEDS: CARAFATE PO SCH (10:09)
[2016-12-29] MEDS: APRESOLINE PO SCH ×3 (10:09→15:57)
[2016-12-29] MEDS: NORMODYNE PO SCH ×2 (10:11→12:50)
[2016-12-29] MEDS: HEPARIN SUB-Q SCH (10:11)
[2016-12-29] MEDS: PROCARDIA XL PO SCH (10:12)
[2016-12-29] MEDS: PROTONIX PO SCH (10:12)
[2016-12-29] MEDS: NOVOLOG SUB-Q SCH ×3 (10:16→17:03)
--- NOTE | 2016-12-29 10:48 | Discharge Summary ---
Providers - Providers Date of Admission: 12/26/16 11:49 Date of discharge: 12/29/16 Attending physician: CM HOUSE 12/26/16 12:24 Consult to Physician [CONS] Urgent Consulting Provider: GAURAV DURBIN Reason For Exam: esrd dialysis m,w,f Notified:: y 12/26/16 12:57 Consult to Physician [CONS] Urgent Consulting Provider: EMILY BOOKER Reason For Exam: icu admission Place consult to:: dr guadarrama Notified:: no Primary care physician: FOOD SAFETY FIELD SPECIALIST Hospitalization Condition: Fair Disposition: DISCHARGED TO HOME OR SELFCARE - Discharge Diagnoses (1) Diabetes mellitus type 2 in obese Status: Acute (2) Accelerated hypertension Status: Acute (3) End stage renal disease on dialysis Status: Acute (4) Gastroparesis due to DM Status: Acute Exam - Constitutional Vitals: Temp Pulse Resp BP Pulse Ox 98.4 F 84 20 179/84 91 12/29/16 08:45 12/29/16 08:45 12/29/16 08:45 12/29/16 10:11 12/29/16 08:45 Plan Activity: no restrictions Diet: low fat, low cholesterol, low salt, diabetic, renal Additional Instructions: 1.Follow up with PCP in 1 week. 2.Continue routine hemodialysis as scheduled Follow up with: PRIMARY CARE, [Primary Care Provider] - 7 Days Prescriptions: Levofloxacin [Levaquin TAB] 500 mg PO Q48H #2 tablet Losartan [Cozaar] 100 mg PO QDAY #30 tablet Metoclopramide [Reglan TAB] 10 mg PO ACHS PRN #30 tablet PRN Reason: nausea or vomiting NIFEdipine XL [Procardia Xl] 60 mg PO Q12HR #60 tablet Pantoprazole [Protonix TAB] 40 mg PO DAILY #30 tablet
[2016-12-29] MEDS ORDERED: NACL 0.9% 100 ML IV PRN (11:01)
[2016-12-29] MEDS ORDERED: APRESOLINE ONE (12:24)
[2016-12-29] MEDS ORDERED: NORMODYNE ONE (12:25)
--- NOTE | 2016-12-29 12:44 | Progress Note ---
Assessment and Plan (1) Accelerated hypertension Current Visit: Yes Status: Acute Plan to address problem: Due to intolerance of oral anti-hypertensive medications. Blood pressure increasing again, likely due to pain. Pt tolerating oral BP meds D/c planning (2) End stage renal disease on dialysis Current Visit: Yes Status: Acute Plan to address problem: Hemodialysis on Tuesday, Tuesday and Tuesday schedule. (3) Gastroparesis due to DM Current Visit: Yes Status: Acute Plan to address problem: Anti-emetic medications. Pain management (4) Anemia in chronic kidney disease Current Visit: No Status: Acute Plan to address problem: Erythropoietin on dialysis. 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 reports nausea, and abdominal pain still persistent Objective - Exam Narrative Exam: Young -Gambian female lying in bed NAD HEENT normocephalic atraumatic, pupils equal reactive to light, pink, clear oropharynx Neck supple, no thyromegaly no jugular venous distention CVS S1-S2 regular rate rhythm without murmur, rub or gallop Chest clear to auscultation Abdomen soft , obese, tenderness was in the epigastrium no organomegaly no bruit bowel sounds present Extremities mild edema no cyanosis or clubbing Neuro awake, alert oriented x3 no gross deficit - Vital Signs Vital signs: Vital Signs - 12hr 12/29/16 12/29/16 12/29/16 01:32 06:20 08:45 Temperature 98.5 F 98.2 F 98.4 F Pulse Rate Pulse Rate [ 85 84 Left Radial] Respiratory 20 18 20 Rate Blood Pressure Blood Pressure 185/89 160/79 174/90 [Left Arm] O2 Sat by Pulse 98 95 91 Oximetry 12/29/16 12/29/16 12/29/16 10:10 10:11 10:30 Temperature 98.4 F Pulse Rate 80 Pulse Rate [ Left Radial] Respiratory 16 Rate Blood Pressure 174/90 179/84 175/90 Blood Pressure [Left Arm] O2 Sat by Pulse Oximetry 12/29/16 12/29/16 12/29/16 10:45 11:00 11:15 Temperature Pulse Rate 80 80 80 Pulse Rate [ Left Radial] Respiratory Rate Blood Pressure 175/90 185/99 188/100 Blood Pressure [Left Arm] O2 Sat by Pulse Oximetry 12/29/16 12/29/16 12/29/16 11:30 11:45 12:00 Temperature Pulse Rate 80 79 79 Pulse Rate [ Left Radial] Respiratory Rate Blood Pressure 186/99 191/98 189/96 Blood Pressure [Left Arm] O2 Sat by Pulse Oximetry 12/29/16 12:33 Temperature Pulse Rate 80 Pulse Rate [ Left Radial] Respiratory Rate Blood Pressure 190/96 Blood Pressure [Left Arm] O2 Sat by Pulse Oximetry - Lab 12/27/16 06:45 12/29/16 09:00 Most recent lab results Calcium 8.6 mg/dL (8.4-10.2) 12/29/16 09:00
[2016-12-29] MEDS ORDERED: CATAPRES ONE (13:36)
--- NOTE | 2016-12-29 15:42 | Event Note ---
Patient seen and examined. I reviewed above [employer] notes which I agree with. Assessment and Plan discussed earlier. Patient seen on dialysis. Blood pressure 196/99 mmHg. Heart rate 81/m. Every 4 100/800. Ultrafiltration 4.7 L. Patient did not receive her blood pressure medicines before coming to dialysis. Actually tolerating oral medications. Asked nurse to give patient a clonidine. Follow-up blood pressure on these medications and with fluid removal on dialysis
[2016-12-29] MEDS ORDERED: APRESOLINE IV STA (16:53)
[2016-12-29] MEDS ORDERED: CATAPRES PO STA (17:02)
[2016-12-29 19:25] VITALS: BP 185/90
== END 2016-12-29 18:13 | disposition home or self-care (01) | DRG 291 ==
LOC: ED 06:48 → CC1 11:49 → 4A 22:59
PROVIDERS: ADMIT Internal Medicine; ATTEND Internal Medicine
PROC: 5A1D60Z (ICD-10-PCS; principal; 2016-12-27)
DX: I13.2 Hypertensive heart and chronic kidney disease with heart failure and with stage 5 chronic kidney disease, or end stage renal disease (principal); N18.6 End stage renal disease; I16.1 Hypertensive emergency; F11.20 Opioid dependence, uncomplicated; K27.3 Acute peptic ulcer, site unspecified, without hemorrhage or perforation; E11.43 Type 2 diabetes mellitus with diabetic autonomic (poly)neuropathy; K31.84 Gastroparesis; R79.89 Other specified abnormal findings of blood chemistry; I50.9 Heart failure, unspecified; J45.909 Unspecified asthma, uncomplicated; J44.9 Chronic obstructive pulmonary disease, unspecified; D63.1 Anemia in chronic kidney disease; E11.22 Type 2 diabetes mellitus with diabetic chronic kidney disease; M19.90 Unspecified osteoarthritis, unspecified site; E11.65 Type 2 diabetes mellitus with hyperglycemia; E78.5 Hyperlipidemia, unspecified; J20.9 Acute bronchitis, unspecified; E66.9 Obesity, unspecified; Z68.32 Body mass index [BMI] 32.0-32.9, adult; Z99.2 Dependence on renal dialysis; Z82.49 Family history of ischemic heart disease and other diseases of the circulatory system; Z98.51 Tubal ligation status; Z83.3 Family history of diabetes mellitus; Z91.14 Patient's other noncompliance with medication regimen; Z80.1 Family history of malignant neoplasm of trachea, bronchus and lung; Z90.49 Acquired absence of other specified parts of digestive tract; Z88.0 Allergy status to penicillin; Z88.6 Allergy status to analgesic agent; Z88.8 Allergy status to other drugs, medicaments and biological substances
CPT/HCPCS: 36415; 71010; 74020; 80048; 80053; 80061; 82550; 82553; 82962; 83690; 84484; 84703; 85025; 85027; 85610; 90686; 93005; 93010; 96374; 96375; 96376; C9113; J0360; J1170; J1200; J1644; J2060; J2405; J2765; J7030

== ENCOUNTER 2017-03-02 13:49 | Inpatient (IN) | payer MEDICARE ==
[2017-03-02] MEDS ORDERED: APRESOLINE IV ONE (14:53)
[2017-03-02] MEDS ORDERED: BENADRYL IV ONE (14:57)
[2017-03-02] MEDS ORDERED: DILAUDID IV ONE ×2 (14:58→16:44)
[2017-03-02] MEDS ORDERED: ZOFRAN IV ONE (15:10)
[2017-03-02 15:12] LABS: Basophils % (Auto) 0.4 % (0.0-1.8); Eosinophils % (Auto) 0.1 % (0.0-4.3); Hematocrit 29.9 % (30.3-42.9); Hemoglobin 9.7 gm/dl (10.1-14.3); Mean Corpuscular HGB Conc 33 % (30-34); Mean Corpuscular Hemoglobin 28 pg (28-32); Mean Corpuscular Volume 86 fl (79-97); Platelet Count 359 K/mm3 (140-440); Red Blood Count 3.48 M/mm3 (3.65-5.03); Red Cell Distribution Width 16.5 % (13.2-15.2); White Blood Count 6.5 K/mm3 (4.5-11.0)
[2017-03-02] MEDS ORDERED: NORMODYNE IV ONE (15:24)
[2017-03-02 15:41] LABS: INR 1.15 (0.87-1.13)
[2017-03-02 15:42] LABS: Partial Thromboplastin Time 29.1 Sec. (24.2-36.6)
[2017-03-02 15:53] LABS: Creatine Kinase MB 2.7 ng/mL (0.0-4.0)
[2017-03-02 15:56] LABS: Total Protein 7.8 g/dL (6.3-8.2)
[2017-03-02 15:59] LABS: Alanine Aminotransferase < 5 units/L (7-56); Bilirubin,Direct < 0.2 mg/dL (0-0.2)
[2017-03-02] MEDS ORDERED: CARDENE DRIP 40 MG/200 ML 40 MG/200 ML BAG IV SCH (16:00)
[2017-03-02 16:01] LABS: Alkaline Phosphatase < 5 units/L (35-129)
[2017-03-02 16:05] LABS: BUN/Creatinine Ratio 4.45; Calcium 9.5 mg/dL (8.4-10.2); Potassium 4.4 mmol/L (3.6-5.0)
--- NOTE | 2017-03-02 16:25 | XRay Report ---
Portable chest: Hypertension As in size to positioning. There is mild vascular congestion. No perivascular edema. The lungs are otherwise clear. A port is present entering the right jugular vein. Compared to the prior examination of February 22 there no significant changes. Impression: Mild congestion.
[2017-03-02 16:43] LABS: Albumin 3.9 g/dL (3.9-5)
--- NOTE | 2017-03-02 16:52 | Emergency Department Report ---
ED General Adult HPI - General Chief complaint: Abdominal Pain Stated complaint: ABD PAIN Time Seen by Provider: 03/02/17 15:05 Source: patient, EMS Mode of arrival: Stretcher Limitations: No Limitations - History of Present Illness Initial comments: This is a 36-year-old insulin-dependent diabetic end-stage renal patient with history of gastroparesis who is previously known to this hospital and not infrequent visitor of the emergency department. She states that she was in too much pain to go to dialysis today. Therefore she went to her pain management clinic instead. The pain management doctor refused to see her and told her that she needed to go to the emergency department because she was "too sick". She complains of her chronic and recurrent abdominal pain. She states she's been vomiting and unable to keep her usual medicines down. She denies any recent fever or chills. She denies any indication of GI bleeding. She is not complaining of any respiratory symptoms at this time. -: hour(s) Location: abdomen Radiation: non-radiation Quality: aching Consistency: constant Improves with: none Worsens with: none Associated Symptoms: nausea/vomiting Treatments Prior to Arrival: none - Related Data Previous Rx's Medication Instructions Recorded Last Taken Type hydrALAZINE [Apresoline TAB] 100 mg PO TID #90 tab 12/21/16 1 Day Ago Rx Losartan [Cozaar] 100 mg PO QDAY #30 tablet 12/29/16 Unknown Rx Metoclopramide [Reglan TAB] 10 mg PO ACHS PRN #30 tablet 12/29/16 Unknown Rx Promethazine [Phenergan TAB] 25 mg PO Q6HR PRN #20 tab 02/20/17 Unknown Rx Dicyclomine [Bentyl] 20 mg PO QID PRN #30 tablet 02/22/17 Unknown Rx NIFEdipine XL [Procardia Xl] 90 mg PO QDAY #30 tablet 02/22/17 Unknown Rx Nortriptyline [Pamelor] 25 mg PO BID #60 capsule 02/22/17 Unknown Rx cloNIDine-TTS PATCH [Catapres-Tts 0.3 mg TD QWEEK #7 patch 02/22/17 Unknown Rx Patch] Cefuroxime [Ceftin] 250 mg PO Q24HR@1800 #7 tablet 02/23/17 Unknown Rx Metoprolol [Lopressor TAB] 100 mg PO TID #90 tablet 02/23/17 Unknown Rx Allergies Allergy/AdvReac Type Severity Reaction Status Date / Time acetaminophen [From Percocet] Allergy Itching Verified 02/22/17 07:01 lisinopril Allergy Shortness Verified 09/07/16 11:27 of Breath oxycodone HCl [From Percocet] Allergy Itching Verified 02/22/17 07:01 Penicillins Allergy Hives Verified 09/07/16 11:27 ED Review of Systems ROS: Stated complaint: ABD PAIN Other details as noted in HPI Constitutional: denies: chills, fever Eyes: denies: eye pain, eye discharge, vision change ENT: denies: ear pain, throat pain Respiratory: denies: cough, shortness of breath, wheezing Cardiovascular: chest pain (also states she has some chest pain as she usually does with her gastroparesis). denies: palpitations Endocrine: no symptoms reported Gastrointestinal: abdominal pain, nausea, vomiting. denies: diarrhea Genitourinary: denies: urgency, dysuria, discharge Musculoskeletal: denies: back pain, joint swelling, arthralgia Skin: denies: rash, lesions Neurological: denies: headache, weakness, paresthesias Psychiatric: denies: anxiety, depression Hematological/Lymphatic: denies: easy bleeding, easy bruising ED Past Medical Hx - Past Medical History Hx Hypertension: Yes Hx Congestive Heart Failure: Yes Hx Diabetes: Yes Hx Renal Disease: Yes Hx Arthritis: Yes Hx Seizures: No Hx Asthma: Yes Hx COPD: Yes Hx HIV: No Additional medical history: gastroporesis - Surgical History Hx Cholecystectomy: Yes (18 years ago) Additional Surgical History: c section, tubal ligation. fistula right arm - Social History Smoking Status: Never Smoker Substance Use Type: Prescribed - Medications Home Medications: Home Medications Medication Instructions Recorded Confirmed Last Taken Type hydrALAZINE [Apresoline TAB] 100 mg PO TID #90 tab 12/21/16 03/02/17 1 Day Ago Rx Losartan [Cozaar] 100 mg PO QDAY #30 tablet 12/29/16 03/02/17 Unknown Rx Metoclopramide [Reglan TAB] 10 mg PO ACHS PRN #30 tablet 12/29/16 03/02/17 Unknown Rx Promethazine [Phenergan TAB] 25 mg PO Q6HR PRN #20 tab 02/20/17 03/02/17 Unknown Rx Dicyclomine [Bentyl] 20 mg PO QID PRN #30 tablet 02/22/17 03/02/17 Unknown Rx NIFEdipine XL [Procardia Xl] 90 mg PO QDAY #30 tablet 02/22/17 03/02/17 Unknown Rx Nortriptyline [Pamelor] 25 mg PO BID #60 capsule 02/22/17 03/02/17 Unknown Rx cloNIDine-TTS PATCH [Catapres-Tts 0.3 mg TD QWEEK #7 patch 02/22/17 03/02/17 Unknown Rx Patch] Cefuroxime [Ceftin] 250 mg PO Q24HR@1800 #7 tablet 02/23/17 03/02/17 Unknown Rx Metoprolol [Lopressor TAB] 100 mg PO TID #90 tablet 02/23/17 03/02/17 Unknown Rx ED Physical Exam - General General appearance: alert, other (somewhat agitated) - Head Head exam: Present: atraumatic, normocephalic - Eye Eye exam: Present: normal appearance. Absent: scleral icterus - ENT ENT exam: Present: mucous membranes moist - Neck Neck exam: Present: normal inspection - Respiratory Respiratory exam: Present: normal lung sounds bilaterally. Absent: respiratory distress - Cardiovascular Cardiovascular Exam: Present: regular rate, normal rhythm. Absent: systolic murmur, diastolic murmur, rubs, gallop - GI/Abdominal GI/Abdominal exam: Present: soft, tenderness (somewhat diffusely no peritoneal signs), normal bowel sounds. Absent: rebound, rigid - Extremities Exam Extremities exam: Present: normal inspection - Back Exam Back exam: Present: normal inspection - Neurological Exam Neurological exam: Present: alert, oriented X3, CN II-XII intact. Absent: motor sensory deficit - Psychiatric Psychiatric exam: Present: agitated, anxious - Skin Skin exam: Present: warm, dry, intact, normal color. Absent: rash ED Course Vital Signs 03/02/17 03/02/17 03/02/17 14:09 15:20 15:30 Temperature 98.1 F Pulse Rate 110 H Respiratory 30 H Rate Blood Pressure 230/118 231/128 Blood Pressure [Left] O2 Sat by Pulse 100 100 100 Oximetry 03/02/17 03/02/17 03/02/17 15:40 15:50 16:00 Temperature Pulse Rate Respiratory Rate Blood Pressure 231/128 214/112 225/118 Blood Pressure [Left] O2 Sat by Pulse 100 100 98 Oximetry 03/02/17 03/02/17 03/02/17 16:10 16:19 16:20 Temperature Pulse Rate 115 H Respiratory Rate Blood Pressure 225/118 225/118 210/108 Blood Pressure [Left] O2 Sat by Pulse 100 97 Oximetry 03/02/17 03/02/17 03/02/17 16:30 16:40 16:50 Temperature Pulse Rate Respiratory Rate Blood Pressure 210/112 228/121 228/122 Blood Pressure [Left] O2 Sat by Pulse 98 99 100 Oximetry 03/02/17 03/02/17 03/02/17 17:00 17:10 17:20 Temperature Pulse Rate Respiratory Rate Blood Pressure 209/101 236/119 233/120 Blood Pressure [Left] O2 Sat by Pulse 100 100 100 Oximetry 03/02/17 03/02/17 03/02/17 17:30 17:40 17:50 Temperature Pulse Rate Respiratory Rate Blood Pressure 233/119 221/110 215/108 Blood Pressure [Left] O2 Sat by Pulse 100 100 100 Oximetry 03/02/17 03/02/17 03/02/17 18:00 18:10 18:20 Temperature Pulse Rate 105 H 106 H Respiratory 34 H 18 Rate Blood Pressure 211/109 193/89 189/82 Blood Pressure [Left] O2 Sat by Pulse 100 100 100 Oximetry 03/02/17 03/02/17 18:30 18:39 Temperature Pulse Rate 106 H 100 H Respiratory 14 Rate Blood Pressure 180/87 Blood Pressure 197/104 [Left] O2 Sat by Pulse 100 Oximetry - Reevaluation(s) Reevaluation #1: The patient tells the nursing staff "you'll never my blood pressure down unless you give me enough Dilaudid". She is treated with analgesics and antiemetics, IV hydralazine and labetalol. She required Cardene drip. She will be admitted to the intensive care unit. 03/02/17 19:08 ED Medical Decision Making - Lab Data Result diagrams: 03/02/17 14:43 03/02/17 14:43 Laboratory Results - last 24 hr 03/02/17 03/02/17 03/02/17 14:43 14:43 14:43 WBC 6.5 RBC 3.48 L Hgb 9.7 L Hct 29.9 L MCV 86 MCH 28 MCHC 33 RDW 16.5 H Plt Count 359 Lymph % (Auto) 8.4 L [place] % (Auto) 3.8 Eos % (Auto) 0.1 Baso % (Auto) 0.4 Lymph # 0.5 L [place] # 0.2 Eos # 0.0 Baso # 0.0 Seg Neutrophils % 87.3 H Seg Neutrophils # 5.7 PT INR APTT Sodium 134 L Potassium 4.4 Chloride 89.0 L Carbon Dioxide 27 Anion Gap 22 BUN 33 H Creatinine 7.4 H Estimated GFR 8 BUN/Creatinine Ratio 4.45 Glucose 157 H Calcium 9.5 Phosphorus Magnesium Total Bilirubin 0.20 Direct Bilirubin < 0.2 Indirect Bilirubin 0.0 AST 16 ALT < 5 L Alkaline Phosphatase < 5 L Total Creatine Kinase CK-MB (CK-2) CK-MB (CK-2) Rel Index Troponin T Total Protein 7.8 Albumin 3.9 Albumin/Globulin Ratio 1.0 Triglycerides Cholesterol LDL Cholesterol Direct HDL Cholesterol Cholesterol/HDL Ratio Amylase 79 Lipase 27 HCG, Qual 03/02/17 03/02/17 03/02/17 14:43 14:43 14:43 WBC RBC Hgb Hct MCV MCH MCHC RDW Plt Count Lymph % (Auto) [place] % (Auto) Eos % (Auto) Baso % (Auto) Lymph # [place] # Eos # Baso # Seg Neutrophils % Seg Neutrophils # PT INR APTT Sodium Potassium Chloride Carbon Dioxide Anion Gap BUN Creatinine Estimated GFR BUN/Creatinine Ratio Glucose Calcium Phosphorus 4.20 Magnesium 1.60 L Total Bilirubin Direct Bilirubin Indirect Bilirubin AST ALT Alkaline Phosphatase Total Creatine Kinase 147 H CK-MB (CK-2) 2.7 CK-MB (CK-2) Rel Index 1.8 Troponin T 0.214 H* Total Protein Albumin Albumin/Globulin Ratio Triglycerides 66 Cholesterol 158 LDL Cholesterol Direct 74 HDL Cholesterol 71 H Cholesterol/HDL Ratio 2.22 Amylase Lipase HCG, Qual 03/02/17 03/02/17 15:14 15:14 WBC RBC Hgb Hct MCV MCH MCHC RDW Plt Count Lymph % (Auto) [place] % (Auto) Eos % (Auto) Baso % (Auto) Lymph # [place] # Eos # Baso # Seg Neutrophils % Seg Neutrophils # PT 14.6 INR 1.15 H APTT 29.1 Sodium Potassium Chloride Carbon Dioxide Anion Gap BUN Creatinine Estimated GFR BUN/Creatinine Ratio Glucose Calcium Phosphorus Magnesium Total Bilirubin Direct Bilirubin Indirect Bilirubin AST ALT Alkaline Phosphatase Total Creatine Kinase CK-MB (CK-2) CK-MB (CK-2) Rel Index Troponin T Total Protein Albumin Albumin/Globulin Ratio Triglycerides Cholesterol LDL Cholesterol Direct HDL Cholesterol Cholesterol/HDL Ratio Amylase Lipase HCG, Qual Negative - EKG Data -: EKG Interpreted by Me EKG shows normal: sinus rhythm, intervals, QRS complexes Rate: normal - EKG Data Patient does have prominent T waves in the precordial leads with urination. Somewhat rightward axis. 03/02/17 19:10 - Radiology Data interpreted by me: Chest x-ray shows mild congestive changes. Critical Care Time: Yes Critical care time in (mins) excluding proc time.: 50 Critical care attestation.: If time is entered above; I have spent that time in minutes in the direct care of this critically ill patient, excluding procedure time. ED Disposition Clinical Impression: Anemia in chronic kidney disease, Accelerated hypertension, End stage renal disease on dialysis, Diabetes mellitus type 2 in obese Congestive heart failure Qualifiers: Congestive heart failure type: combined Congestive heart failure chronicity: acute on chronic Qualified Code(s): I50.43 - Acute on chronic combined systolic (congestive) and diastolic (congestive) heart failure Disposition: OP ADMITTED IP TO THIS HOSP Is pt being admited?: Yes Does the pt Need Aspirin: Yes Condition: Stable Instructions: Abdominal Pain (ED), Hypertension (ED), Diabetes Mellitus Type 2 in Adults (ED) Referrals: PRIMARY CARE, [Primary Care Provider] - 3-5 Days
[2017-03-02] MEDS: CARDENE 50 MG in NACL 0.9% 250ML 230 ML IV SCH ×2 (17:43→22:23)
--- NOTE | 2017-03-02 19:03 | Admit Criteria Form ---
Admission Criteria Documentation: ABDOMINAL PAIN Clinical Indications for Admission to Inpatient Care (Place 'X' for any and all applicable criteria): Admission is indicated for ANY ONE of the following(1)(2)(3)(4)(5): [X ]I. Inpatient admission required rather than observation care (Also use Abdominal Pain: Observation Care, as appropriate) because of ANY ONE of the following: [ X]a) Severe pain requiring acute inpatient management [ ]b) Identification of etiology/finding that requires inpatient care (eg, aortic dissection, free air) [ ]c) Absent bowel sounds with complete ileus(6) [ ]d) Suspected toxic megacolon [ ]e) Severe electrolyte abnormalities requiring inpatient care [ ]f) High fever or infection requiring inpatient admission as indicated by ANY ONE of following(7)(8): [ ] i) Appropriate outpatient or observational care antimicrobial treatment unavailable, not effective, or not feasible [ ] ii) Documented bacteremia [ ] iii) Temperature > 104.9 degrees F (oral) [ ] iv) T >103.1 F (oral) or < 96.8 F(rectal) that does not respond to all emergency treatment measures [ ]g) Signs of intestinal obstruction [B] [ ]h) Hemodynamic instability [ ]i) IV fluid to replace significant ongoing losses (greater than 3 L/m2 per day) (12)(13) [ ]j) Percutaneous or open drainage (eg, abscess, biliary tract ) procedures [ ]k) Parenteral nutrition regimen that must be implemented on inpatient basis [X ]l) Other condition,treatment or monitoring requiring inpatient admission. [ ]II. Peritoneal signs present [ ]III. Surgery needed that cannot be performed on an ambulatory basis. [ ]IV. Evaluation requires patient to not eat or drink for extended period ( eg, more than 24 hours). [ ]V. Contraindications and/or Inappropriate clinical situations for Observational Care in patients with abdominal pain, when ANY ONE of the following is required: [ ]a) Thorough evaluation is required to prevent catastrophic events due to delays in diagnosing (e.g.Mesenteric ischemia) 1,3 [ ]b) Patient with severe pathology or with chronic symptoms unlikely to improve in the ED stay (3) [ ]. General contraindications and/or Inappropriate clinical situations for Observational Care in patients with abdominal pain, when ANY ONE of the following is required: [ ]a) Prediction of prolongation of LOS based on ANY ONE of the following may be considered as a contraindication for observational care 2, 3, 4, 5, 6, 7, 8, 9, 10, 11 [ ]i) Age > 65 yrs. [ ]ii) Patient arriving by ambulance [ ]iii) Patient with high acuity [ ]iv) Patient requiring vital sign monitoring [ ]v) Patient on IV medication [ ]b) Systolic blood pressures 180mmHg 3,12 [ ]c) Patient with altered mental status including delirium and other alteration of consciousness, (3) [ ]d) Patient whose discharge disposition will be to a nursing home home or rehabilitation home should not be managed in Emergency Department Observation Unit. CMS rule requires 3 days hospital stay before such placement.3,13 [ ]e) Patient with failure to thrive due to broad array of etiologies 3,16,17 [ ]f) Inability to ambulate 3,14 Extended stay beyond goal length of stay may be needed for(2)(3): [ ]a) Persistent abdominal pain with suspected intra-abdominal process [ ]b) Diagnosed condition requiring continued stay (e.g., pancreatitis, complicated diverticulitis) [ ]c) Surgery (e.g., colectomy) The original [facility] content created by [employer] has been revised. The portions of the content which have been revised are identified through the use of italic text or in bold, and [facility] has neither reviewed nor approved the modified material.All other unmodified content is copyright [facility]. Please see references footnoted in the original [facility] edition 2016 Admission Criteria Met: Yes
[2017-03-02] MEDS ORDERED: BABY ASPIRIN PO ONE (19:14)
[2017-03-02] MEDS: BENADRYL IV PRN (21:37)
[2017-03-02] MEDS ORDERED: BABY ASPIRIN ONE (21:38)
[2017-03-02] MEDS: DILAUDID IV PRN (21:42)
[2017-03-02] MEDS ORDERED: REGLAN PO PRN (22:21)
[2017-03-02] MEDS ORDERED: PHENERGAN PO PRN (22:21)
--- NOTE | 2017-03-02 22:21 | Event Note ---
Date: 03/02/17 See H/p in reports HTN emergency Gastroparesis ESRD on HD Volume overload T2DM Troponin elevated sec to ESRD
[2017-03-02] MEDS ORDERED: CATAPRES-TTS PATCH TD SCH (23:00)
[2017-03-02] MEDS: ZOFRAN IV PRN (23:52)
[2017-03-02] MEDS: ATIVAN IV PRN (23:55)
[2017-03-03] MEDS: CARDENE 50 MG in NACL 0.9% 250ML 230 ML IV SCH (01:30)
[2017-03-03] MEDS: ZOFRAN IV PRN ×5 (04:53→19:50)
[2017-03-03] MEDS: DILAUDID IV PRN ×5 (04:53→19:50)
[2017-03-03] MEDS: BENADRYL IV PRN ×3 (04:54→19:49)
[2017-03-03] MEDS: APRESOLINE PO SCH ×4 (09:28→19:50)
[2017-03-03] MEDS: LOPRESSOR PO SCH ×4 (09:28→19:51)
[2017-03-03] MEDS: COZAAR PO SCH (09:33)
[2017-03-03] MEDS: PAMELOR PO SCH ×2 (09:33→22:37)
[2017-03-03] MEDS: PROCARDIA XL PO SCH (09:35)
[2017-03-03] MEDS: LOVENOX SUB-Q SCH (09:35)
[2017-03-03] MEDS: ATIVAN IV PRN ×2 (09:39→22:40)
--- NOTE | 2017-03-03 10:16 | Consultation ---
History of Present Illness - Reason for Consult Consult date: 03/03/17 end stage renal disease Requesting physician: BART MCLAUGHLIN - History of Present Illness 86-year-old lady who is well known to me with a history of diabetes mellitus, hypertension, complicated by end-stage renal disease on hemodialysis on a Tuesday schedule at [facility] dialysis. She also has a history of diabetic gastroparesis and has had numerous hospitalizations on account of exacerbations which are usually associated with accelerated hypertension and volume overload. Patient recently developed gastro-intestinal bleeding during last couple of hospitalizations and received multiple packed red blood cell transfusions. She was found to have bleeding peptic ulcer disease. She's done well for a few weeks now but she said yesterday she was in too much pain to go to dialysis. She woke up at about 5 AM with severe abdominal pain located in epigastric area describes that as squeezing pain radiating to the back with no known aggravating or relieving factors. Rates the pain as a 10 over 10. It is associated nausea and vomiting and she wasn't able to keep foods or medications down. No fever. No hematemesis, melena or hematochezia. She admits to occasional cough productive of yellow sputum no hemoptysis or wheezing. Patient also admits to chest pain on vomiting but this is usually transient. She admits to lower extremity swelling but no palpitations. I'm consulted to assist in managing the renal failure. Blood pressure was also quite high at 231/1 20 mmHg. Past History Past Medical History: diabetes, heart failure, hypertension, hyperlipidemia, renal failure Past Surgical History: cholecystectomy, , Other (right arm AV fistula, bilateral tubal ligation, retinal laser photocoagulation therapy, permacath placement) Social history: lives with family (3 children. 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 denies: smoking, alcohol abuse, prescription drug abuse, IV drug use Family history: CAD (Father of myocardial infarction age 56), cancer ( mother had lung cancer but is still alive.), diabetes (both parents), hypertension (Both parents) Medications and Allergies Allergies Allergy/AdvReac Type Severity Reaction Status Date / Time acetaminophen [From Percocet] Allergy Itching Verified 02/22/17 07:01 lisinopril Allergy Shortness Verified 09/07/16 11:27 of Breath oxycodone HCl [From Percocet] Allergy Itching Verified 02/22/17 07:01 Penicillins Allergy Hives Verified 09/07/16 11:27 Home Medications Medication Instructions Recorded Confirmed Last Taken Type hydrALAZINE [Apresoline TAB] 100 mg PO TID #90 tab 12/21/16 03/02/17 1 Day Ago Rx Losartan [Cozaar] 100 mg PO QDAY #30 tablet 12/29/16 03/02/17 Unknown Rx Metoclopramide [Reglan TAB] 10 mg PO ACHS PRN #30 tablet 12/29/16 03/02/17 Unknown Rx Promethazine [Phenergan TAB] 25 mg PO Q6HR PRN #20 tab 02/20/17 03/02/17 Unknown Rx Dicyclomine [Bentyl] 20 mg PO QID PRN #30 tablet 02/22/17 03/02/17 Unknown Rx NIFEdipine XL [Procardia Xl] 90 mg PO QDAY #30 tablet 02/22/17 03/02/17 Unknown Rx Nortriptyline [Pamelor] 25 mg PO BID #60 capsule 02/22/17 03/02/17 Unknown Rx cloNIDine-TTS PATCH [Catapres-Tts 0.3 mg TD QWEEK #7 patch 02/22/17 03/02/17 Unknown Rx Patch] Cefuroxime [Ceftin] 250 mg PO Q24HR@1800 #7 tablet 02/23/17 03/02/17 Unknown Rx Metoprolol [Lopressor TAB] 100 mg PO TID #90 tablet 02/23/17 03/02/17 Unknown Rx Active Meds: Active Medications Clonidine HCl (Catapres-Tts Patch) 0.3 mg TD We [facility] Last Admin: 03/02/17 23:44 Dose: 0.3 mg Dicyclomine HCl (Bentyl) 20 mg PO QID PRN PRN Reason: ABDOMINAL PAIN Diphenhydramine HCl (Benadryl) 50 mg IV Q6H PRN PRN Reason: Itching Last Admin: 03/03/17 04:54 Dose: 50 mg Enoxaparin Sodium (Lovenox) 30 mg SUB-Q QDAY GABRIELLA Last Admin: 05/18/17 09:35 Dose: 30 mg Epoetin Armando (Epogen) 20,000 unit IV CELENA PRN PRN Reason: hemodialysis Hydralazine HCl (Apresoline) 100 mg PO TID [facility] Last Admin: 03/03/17 09:28 Dose: Not Given Hydromorphone HCl (Dilaudid) 2 mg IV Q3H PRN PRN Reason: Pain , Severe (7-10) Last Admin: 03/03/17 07:45 Dose: 2 mg Nicardipine HCl 50 mg/ Sodium (Chloride) 250 mls @ 25 mls/hr IV TITR GABRIELLA; 5 MG/ HR PRN Reason: Protocol Last Titration: 03/03/17 09:25 Dose: 0 mg/hr, 0 mls/hr Sodium Chloride (Nacl 0.9%) 100 mls @ 999 mls/hr IV CELENA PRN PRN Reason: Hypotension Lorazepam (Ativan) 1 mg IV Q4H PRN PRN Reason: Agitation Last Admin: 03/03/17 09:39 Dose: 1 mg Losartan Potassium (Cozaar) 100 mg PO QDAY [facility] Last Admin: 03/03/17 09:33 Dose: 100 mg Metoclopramide HCl (Reglan) 5 mg PO ACHS PRN PRN Reason: nausea or vomiting Metoprolol Tartrate (Lopressor) 100 mg PO TID [facility] Last Admin: 03/03/17 09:28 Dose: Not Given Nifedipine (Procardia Xl) 90 mg PO QDAY [facility] Last Admin: 03/03/17 09:35 Dose: 90 mg Nortriptyline HCl (Pamelor) 25 mg PO BID [facility] Last Admin: 03/03/17 09:33 Dose: 25 mg Ondansetron HCl (Zofran) 4 mg IV Q3H PRN PRN Reason: Nausea And Vomiting Last Admin: 03/03/17 07:45 Dose: 4 mg Promethazine HCl (Phenergan) 25 mg PO Q6HR PRN PRN Reason: Nausea Review of Systems All systems: negative (Constitutional: no fever has chills. No anorexia or weight loss. HEENT: No sore throat or sinus drainage no hearing or vision impairment . Cardiovascular: See history of present illness Respiratory: See history of present illness. No, hemoptysis or wheezing. Gastrointestinal: See history of present illness. No hematemesis or melena. Genitourinary: No frequency urgency dysuria or hematuria. hematologic: No abnormal bleeding or bruising. Integumentary: Admits to pruritus no rash. Neurological: Admits to headache feels right-side is a bit weaker. No numbness, no syncope or seizures. Musculoskeletal: No joint pains no stiffness. Psychiatry: Admits to both anxiety and depression) Exam - Vital Signs Vital signs: Vital Signs Temp Pulse Resp BP Pulse Ox 98.1 F 110 H 30 H 230/118 100 03/02/17 14:09 03/02/17 14:09 03/02/17 14:09 03/02/17 14:09 03/02/17 14:09 - Physical Exam Narrative exam: Young -Iraqi female lying in bed in no acute distress HEENT normocephalic atraumatic, pupils equal reactive to light, pink, clear oropharynx Neck supple, no thyromegaly no jugular venous distention CVS S1-S2 regular rate rhythm without murmur, rub or gallop Chest clear to auscultation Abdomen soft nondistended nontender no organomegaly no bruit bowel sounds present Extremities trace edema, no cyanosis or clubbing Genitourinary deferred Neuro awake, alert oriented x3 no gross deficit Results - Lab Results 03/02/17 14:43 03/02/17 14:43 Most recent lab results Calcium 9.5 mg/dL (8.4-10.2) 03/02/17 14:43 Phosphorus 4.20 mg/dL (2.5-4.5) 03/02/17 14:43 Magnesium 1.60 mg/dL (1.7-2.3) L 03/02/17 14:43 Assessment and Plan - Patient Problems (1) End stage renal disease on dialysis Current Visit: Yes Status: Chronic Plan to address problem: Dialysis stat this morning. We'll dialysis again tomorrow (2) Accelerated hypertension Current Visit: No Status: Acute Plan to address problem: Accelerated hypertension secondary to intolerance of oral medications fluid overload. Chest x-ray shows pulmonary edema.. Continue Cardene drip. Oral medications started. Follow up blood pressure after fluid removal on dialysis Wean off Cardene as blood pressure improves (3) Anemia in chronic kidney disease Current Visit: Yes Status: Acute Plan to address problem: Give erythropoietin on dialysis once blood pressure improves (4) Gastroparesis due to DM Current Visit: No Status: Acute Plan to address problem: Antiemetics. Continue management by primary attending (5) Hyponatremia Current Visit: Yes Status: Acute Plan to address problem: Hypervolemic. We will follow-up sodium following fluid removal with dialysis.
--- NOTE | 2017-03-03 11:08 | History and Physical Report ---
CHIEF COMPLAINT: Abdominal pain and vomiting. HISTORY OF PRESENT ILLNESS: A 36-year-old with insulin-dependent diabetes, gastroparesis, who comes to the ER frequently, comes in for severe abdominal pain and vomiting. She did not go to her dialysis today. The pain management doctor refuses to see her. She complains of chronic and recurrent abdominal pain and she has been vomiting about 3-4 times since the morning. No hematemesis. No blood per rectum. PAST MEDICAL HISTORY: Significant for hypertension, gastroparesis, end-stage renal disease on dialysis, diabetes and COPD. PAST SURGICAL HISTORY: , tubal ligation, right arm fistula. SOCIAL HISTORY: Does not smoke. No alcohol, no recreational drugs. FAMILY HISTORY: Significant for hypertension. CURRENT MEDICATIONS: Hydralazine 100 mg 3 times a day, losartan 100 mg once a day, Reglan 10 mg a.c. and at bedtime, promethazine 25 mg q. 6 p.r.n., Bentyl 20 mg p.o. q.i.d., nifedipine XL 90 mg p.o. daily, nortriptyline, Pamelor 25 mg p.o. b.i.d., clonidine TTS patch 3 q. weekly, metoprolol 100 mg 3 times a day. REVIEW OF SYSTEMS: CONSTITUTIONAL: No weight loss, no weight gain, no fever, no chills. HEENT: No sore throat, no postnasal drip. CVS AND RESPIRATORY SYSTEM: No shortness of breath. No chest pain. No cough, no wheezing. GASTROINTESTINAL: Severe abdominal pain 10 on 10 present. Also, has a history of vomiting and nausea. GENITOURINARY: No dysuria, no flank pain. EXTREMITIES: No joint pains. No muscle pains. CENTRAL NERVOUS SYSTEM: No syncope, no seizures. SKIN: No rash. HEMATOLOGY/LYMPHATIC SYSTEM: No easy bruising. PSYCHIATRIC: No depression. No anxiety. PHYSICAL EXAMINATION: GENERAL: Young female in pain. VITAL SIGNS: Temperature 98.1, pulse is 110, respiratory rate is 30, blood pressure is 230/118. HEENT: Unremarkable. Pupils equal and reactive. NECK: Supple, no lymphadenopathy, no thyromegaly. LUNGS: Clear to auscultation and percussion. Good air entry. CARDIOVASCULAR: S1, S2 heard. No gallop, no murmur, no rub. Apical impulse in left fifth intercostal space and midclavicular line. ABDOMEN: Soft, tender in the epigastric region. Bowel sounds are normal. EXTREMITIES: Good pedal pulses. Right arm fistula present. CENTRAL NERVOUS SYSTEM: Alert and oriented x 4. Nonfocal exam. SKIN: Normal. LABORATORY DATA: Significant for white count of 6500, H and H is 9.7 and 29.9, platelet count is 359,000. Sodium is 134, potassium is 4.4, chloride is 89, BUN and creatinine 33 and 7.4, troponin 0.214. BNP 35,000. ASSESSMENT AND PLAN: 1. Hypertensive emergency. The patient on Cardene drip, continue the Cardizem drip. In the meantime, I resume her blood pressure medications including the Catapres-TTS 3 patch. 2. End-stage renal disease. Continue dialysis. 3. Gastroparesis: IV Zofran, Reglan and Dilaudid. The patient may have some pain-seeking behavior. The patient may be inducing her symptoms for the sake of pain medications. 4. Depression. Continue Pamelor. 5. Congestive heart failure. The patient has volume overload. The patient needs ultrafiltration and removal of fluid. BNP is 35,000. 6. Type 2 diabetes. The patient is not on any medications. We will do coverage. We will initiate long-acting insulin if necessary. 6. Deep venous thrombosis prophylaxis, heparin 5000 q.12. JOB# [id number] NEGAR/NTS
--- NOTE | 2017-03-03 11:28 | Consultation ---
History of Present Illness Consult date: 03/03/17 Requesting physician: BUBBA PAEZ Reason for consult: other (Hypertensive Crises; ESRD on dialysis) History of present illness: PULMONARY/CCM CONSULT NOTE (Full dictation # [id number]) Please see dictated notes for full details Past History Past Medical History: diabetes, heart failure, hypertension, hyperlipidemia, renal failure Past Surgical History: cholecystectomy, , Other (right arm AV fistula, bilateral tubal ligation, retinal laser photocoagulation therapy, permacath placement) Social history: lives with family (3 children. 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 denies: smoking, alcohol abuse, prescription drug abuse, IV drug use Family history: CAD (Father of myocardial infarction age 56), cancer ( mother had lung cancer but is still alive.), diabetes (both parents), hypertension (Both parents) Medications and Allergies Allergies Allergy/AdvReac Type Severity Reaction Status Date / Time acetaminophen [From Percocet] Allergy Itching Verified 02/22/17 07:01 lisinopril Allergy Shortness Verified 09/07/16 11:27 of Breath oxycodone HCl [From Percocet] Allergy Itching Verified 02/22/17 07:01 Penicillins Allergy Hives Verified 09/07/16 11:27 Home Medications Medication Instructions Recorded Confirmed Last Taken Type hydrALAZINE [Apresoline TAB] 100 mg PO TID #90 tab 12/21/16 03/02/17 1 Day Ago Rx Losartan [Cozaar] 100 mg PO QDAY #30 tablet 12/29/16 03/02/17 Unknown Rx Metoclopramide [Reglan TAB] 10 mg PO ACHS PRN #30 tablet 12/29/16 03/02/17 Unknown Rx Promethazine [Phenergan TAB] 25 mg PO Q6HR PRN #20 tab 02/20/17 03/02/17 Unknown Rx Dicyclomine [Bentyl] 20 mg PO QID PRN #30 tablet 02/22/17 03/02/17 Unknown Rx NIFEdipine XL [Procardia Xl] 90 mg PO QDAY #30 tablet 02/22/17 03/02/17 Unknown Rx Nortriptyline [Pamelor] 25 mg PO BID #60 capsule 02/22/17 03/02/17 Unknown Rx cloNIDine-TTS PATCH [Catapres-Tts 0.3 mg TD QWEEK #7 patch 02/22/17 03/02/17 Unknown Rx Patch] Cefuroxime [Ceftin] 250 mg PO Q24HR@1800 #7 tablet 02/23/17 03/02/17 Unknown Rx Metoprolol [Lopressor TAB] 100 mg PO TID #90 tablet 02/23/17 03/02/17 Unknown Rx Active Meds: Active Medications Clonidine HCl (Catapres-Tts Patch) 0.3 mg TD [facility] Last Admin: 03/02/17 23:44 Dose: 0.3 mg Dicyclomine HCl (Bentyl) 20 mg PO QID PRN PRN Reason: ABDOMINAL PAIN Diphenhydramine HCl (Benadryl) 50 mg IV Q6H PRN PRN Reason: Itching Last Admin: 03/03/17 04:54 Dose: 50 mg Enoxaparin Sodium (Lovenox) 30 mg SUB-Q QDAY [facility] Last Admin: 03/03/17 09:35 Dose: 30 mg Epoetin Armando (Epogen) 20,000 unit IV CELENA PRN PRN Reason: hemodialysis Hydralazine HCl (Apresoline) 100 mg PO TID [facility] Last Admin: 03/03/17 09:28 Dose: Not Given Hydromorphone HCl (Dilaudid) 2 mg IV Q3H PRN PRN Reason: Pain , Severe (7-10) Last Admin: 03/03/17 07:45 Dose: 2 mg Nicardipine HCl 50 mg/ Sodium (Chloride) 250 mls @ 25 mls/hr IV TITR GABRIELLA; 5 MG/ HR PRN Reason: Protocol Last Titration: 03/03/17 09:25 Dose: 0 mg/hr, 0 mls/hr Sodium Chloride (Nacl 0.9%) 100 mls @ 999 mls/hr IV CELENA PRN PRN Reason: Hypotension Lorazepam (Ativan) 1 mg IV Q4H PRN PRN Reason: Agitation Last Admin: 03/03/17 09:39 Dose: 1 mg Losartan Potassium (Cozaar) 100 mg PO QDAY [facility] Last Admin: 03/03/17 09:33 Dose: 100 mg Metoclopramide HCl (Reglan) 5 mg PO ACHS PRN PRN Reason: nausea or vomiting Metoprolol Tartrate (Lopressor) 100 mg PO TID [facility] Last Admin: 03/03/17 09:28 Dose: Not Given Nifedipine (Procardia Xl) 90 mg PO QDAY [facility] Last Admin: 03/03/17 09:35 Dose: 90 mg Nortriptyline HCl (Pamelor) 25 mg PO BID [facility] Last Admin: 03/03/17 09:33 Dose: 25 mg Ondansetron HCl (Zofran) 4 mg IV Q3H PRN PRN Reason: Nausea And Vomiting Last Admin: 03/03/17 07:45 Dose: 4 mg Promethazine HCl (Phenergan) 25 mg PO Q6HR PRN PRN Reason: Nausea Physical Examination Vital signs: Vital Signs Temp Pulse Resp BP Pulse Ox 98.1 F 110 H 30 H 230/118 100 03/02/17 14:09 03/02/17 14:09 03/02/17 14:09 03/02/17 14:09 03/02/17 14:09 Results - Laboratory Findings CBC and BMP: 03/02/17 14:43 03/02/17 14:43 PT/INR, D-dimer PT 14.6 Sec. (12.2-14.9) 03/02/17 15:14 INR 1.15 (0.87-1.13) H 03/02/17 15:14
--- NOTE | 2017-03-03 11:59 | Progress Note ---
Assessment and Plan Assessment and plan: Accelerated hypertension. When Cardizem drip and resume home antihypertensive medications labetalol, hydralazine, nifedipine and clonidine. Diabetic gastroparesis. Continue antiemetics and Reglan. IV fluid hydration. Supportive care. Diabetes mellitus type 2. Continue Accu-Cheks and sliding scale as. ESRD. Continue scheduled hemodialysis per nephrology. Hyperlipidemia. Chronic diastolic heart failure. Echocardiogram August 2016 reveals severe concentric left ventricle hypertrophy with left ventricle systolic function that is normal at 50-60%. Moderate pulmonary hypertension. History Interval history: No new issues overnight. Hospitalist Physical - Constitutional Vitals: Temp Pulse Resp BP Pulse Ox 97.6 F 94 H 16 174/96 93 03/03/17 09:55 03/03/17 11:30 03/03/17 09:55 03/03/17 11:30 03/03/17 09:55 General appearance: Present: no acute distress, well-nourished - EENT Eyes: Present: PERRL, EOM intact ENT: hearing intact, clear oral mucosa, dentition normal - Neck Neck: Present: supple, normal ROM - Respiratory Respiratory effort: normal Respiratory: bilateral: CTA - Cardiovascular Rhythm: regular Heart Sounds: Present: S1 & S2. Absent: gallop, rub - Extremities Extremities: no ischemia, No edema, Full ROM - Abdominal General gastrointestinal: soft, non-tender, non-distended, normal bowel sounds - Integumentary Integumentary: Present: clear, warm, dry - Neurologic Neurologic: CNII-XII intact, moves all extremities Results - Labs CBC & Chem 7: 03/02/17 14:43 03/02/17 14:43 Labs: Laboratory Last Values WBC 6.5 K/mm3 (4.5-11.0) 03/02/17 14:43 RBC 3.48 M/mm3 (3.65-5.03) L 03/02/17 14:43 Hgb 9.7 gm/dl (10.1-14.3) L 03/02/17 14:43 Hct 29.9 % (30.3-42.9) L 03/02/17 14:43 MCV 86 fl (79-97) 03/02/17 14:43 MCH 28 pg (28-32) 03/02/17 14:43 MCHC 33 % (30-34) 03/02/17 14:43 RDW 16.5 % (13.2-15.2) H 03/02/17 14:43 Plt Count 359 K/mm3 (140-440) 03/02/17 14:43 Lymph % (Auto) 8.4 % (13.4-35.0) L 03/02/17 14:43 [place] % (Auto) 3.8 % (0.0-7.3) 03/02/17 14:43 Eos % (Auto) 0.1 % (0.0-4.3) 03/02/17 14:43 Baso % (Auto) 0.4 % (0.0-1.8) 03/02/17 14:43 Lymph # 0.5 K/mm3 (1.2-5.4) L 03/02/17 14:43 [place] # 0.2 K/mm3 (0.0-0.8) 03/02/17 14:43 Eos # 0.0 K/mm3 (0.0-0.4) 03/02/17 14:43 Baso # 0.0 K/mm3 (0.0-0.1) 03/02/17 14:43 Seg Neutrophils % 87.3 % (40.0-70.0) H 03/02/17 14:43 Seg Neutrophils # 5.7 K/mm3 (1.8-7.7) 03/02/17 14:43 PT 14.6 Sec. (12.2-14.9) 03/02/17 15:14 INR 1.15 (0.87-1.13) H 03/02/17 15:14 APTT 29.1 Sec. (24.2-36.6) 03/02/17 15:14 Sodium 134 mmol/L (137-145) L 03/02/17 14:43 Potassium 4.4 mmol/L (3.6-5.0) 03/02/17 14:43 Chloride 89.0 mmol/L (98-107) L 03/02/17 14:43 Carbon Dioxide 27 mmol/L (22-30) 03/02/17 14:43 Anion Gap 22 mmol/L 03/02/17 14:43 BUN 33 mg/dL (7-17) H 03/02/17 14:43 Creatinine 7.4 mg/dL (0.7-1.2) H 03/02/17 14:43 Estimated GFR 8 ml/min 03/02/17 14:43 BUN/Creatinine Ratio 4.45 % 03/02/17 14:43 Glucose 157 mg/dL (65-100) H 03/02/17 14:43 Calcium 9.5 mg/dL (8.4-10.2) 03/02/17 14:43 Phosphorus 4.20 mg/dL (2.5-4.5) 03/02/17 14:43 Magnesium 1.60 mg/dL (1.7-2.3) L 03/02/17 14:43 Total Bilirubin 0.20 mg/dL (0.1-1.2) 03/02/17 14:43 Direct Bilirubin < 0.2 mg/dL (0-0.2) 03/02/17 14:43 Indirect Bilirubin 0.0 mg/dL 03/02/17 14:43 AST 16 units/L (5-40) 03/02/17 14:43 ALT < 5 units/L (7-56) L 03/02/17 14:43 Alkaline Phosphatase < 5 units/L (35-129) L 03/02/17 14:43 Total Creatine Kinase 147 units/L (30-135) H 03/02/17 14:43 CK-MB (CK-2) 2.7 ng/mL (0.0-4.0) 03/02/17 14:43 CK-MB (CK-2) Rel Index 1.8 (0-4) 03/02/17 14:43 Troponin T 0.214 ng/mL (0.00-0.029) H* 03/02/17 14:43 NT-Pro-B Natriuret Pep > 27801 pg/mL (0-450) H 03/02/17 14:43 Total Protein 7.8 g/dL (6.3-8.2) 03/02/17 14:43 Albumin 3.9 g/dL (3.9-5) 03/02/17 14:43 Albumin/Globulin Ratio 1.0 % 03/02/17 14:43 Triglycerides 66 mg/dL (2-149) 03/02/17 14:43 Cholesterol 158 mg/dL (50-199) 03/02/17 14:43 LDL Cholesterol Direct 74 mg/dL (50-130) 03/02/17 14:43 HDL Cholesterol 71 mg/dL (40-59) H 03/02/17 14:43 Cholesterol/HDL Ratio 2.22 % 03/02/17 14:43 Amylase 79 units/L (27-131) 03/02/17 14:43 Lipase 27 units/L (13-60) 03/02/17 14:43 HCG, Qual Negative (Negative) 03/02/17 15:14
[2017-03-03] MEDS ORDERED: NACL 0.9% 100 ML IV PRN (12:00)
[2017-03-04] MEDS: BENADRYL IV PRN ×2 (02:44→10:30)
[2017-03-04] MEDS: DILAUDID IV PRN ×5 (02:45→20:31)
[2017-03-04] MEDS: ZOFRAN IV PRN ×3 (02:46→10:30)
[2017-03-04] MEDS: ATIVAN IV PRN (04:15)
--- NOTE | 2017-03-04 05:31 | Consultation ---
PULMONARY CRITICAL CARE EVALUATION CONSULTING PHYSICIAN: . REASON FOR CONSULTATION: Hypertensive crisis. CHIEF COMPLAINT AND HISTORY OF PRESENT ILLNESS: The patient is a 36-year-old -Citizen Of [place] female with past medical history significant in this context both for a diagnosis of insulin-dependent diabetes, but also end-stage renal disease, on dialysis, came into the Emergency Room complaining of abdominal pain, stated that she was in too much pain to go to the dialysis on the day of presentation. She denied any nausea, vomiting, or overt aspiration. Denied any bright red blood per rectum. Denied any trauma. She went to a pain management clinic for the pain treatment; however, she was told to going into the Emergency Room. She then started vomiting and had been unable to keep her usual medicines down. Upon evaluation, she was found to have a significantly elevated high blood pressure. She required a Cardene drip, hence the requirement of ICU admission. When I stopped by to see her, dialysis was ongoing. She was feeling a little bit better. She was itching a whole lot, but had refused to receive Benadryl at that time. She denied fevers, chills, other constitutional symptoms. With regards to her tobacco use/abuse history, she describes herself as a never smoker. That really is as much of the history of presentation as I have. PAST MEDICAL HISTORY: Again, hypertension, congestive heart failure, diabetes, end-stage renal disease, on dialysis; history of arthritis, a history of COPD, history of gastroparesis as well as being obese and history of nonrestorative sleep. PAST SURGICAL HISTORY: She has had a cholecystectomy. She has had a . She has had tubal ligations and she has an AV fistula to the right upper extremity. MEDICATIONS: She was on at the time I stopped by to see her, according to the medication administration record included the following: Clonidine patch 0.3 mg transdermal q. Tuesday, Bentyl 20 mg p.o. q.i.d. p.r.n. abdominal pain, Benadryl 50 mg IV q. 6 h. p.r.n. itching, Lovenox 30 mg subQ daily, Epogen p.r.n. with dialysis, hydralazine 100 mg p.o. t.i.d., Dilaudid 2 mg IV q.3 hours p.r.n. severe pain. Ativan 1 mg IV 4 hours p.r.n. agitation. Losartan 100 mg p.o. daily, Reglan 5 mg p.o. q.a.c. and at bedtime, p.r.n. nausea and vomiting, Lopressor 100 mg p.o. t.i.d., nicardipine drip had been going at 2.5 mg per hour. Nifedipine 90 mg p.o. daily, nortriptyline 25 mg p.o. b.i.d., Zofran 4 mg IV q. 3 hours p.r.n. nausea and vomiting well as p.r.n. Phenergan. ALLERGIES: TYLENOL, LISINOPRIL, PENICILLINS. Nature of this allergy is unknown. DIET: Obese lady. She denies acute weight loss or gain preceding few weeks to months. FAMILY AND SOCIAL HISTORY: Lives in the community, I believe with her mother. Denies alcohol or illicit drug use or abuse or tobacco. Family history otherwise noncontributory. REVIEW OF SYSTEMS: No loss of consciousness. No new onset seizures. No new onset focal weakness. No gross hematochezia or melena. No gross hematuria or dysuria. No hematemesis. She did have some emesis. She admits to nonrestorative sleep. She admits to snoring. She has not been told of witnessed apneas. Complete review of systems obtained. Pertinent positives and/or negatives as in body of history above, otherwise noncontributory. PHYSICAL EXAMINATION: VITAL SIGNS: At presentation, she was afebrile, temperature 98.1, pulse 110, respiratory rate 30, blood pressure 230/118. Oxygen sats were 100%, inspired oxygen concentration was not recorded. HEAD, EYES, EARS, NOSE AND THROAT: Pupils are equal, round, about 4 mm, reactive to light. Extraocular muscle movements are intact. Oropharynx is a Mallampati #3 oropharynx with mild oropharyngeal pallor, grossly no palpable lymph nodes in the supraclavicular or submandibular lymph node chains. She has a right upper anterior chest wall Port-A-Cath for IV access. LUNGS: Auscultation of both lung mcintosh, bibasilar inspiratory crackles, no wheezing. HEART: Heart sounds 1 and 2 are heard. They were regular in rate and rhythm at time of my evaluation. ABDOMEN: Soft. Bowel sounds are positive, mildly tender in the epigastric region. EXTREMITIES: Without overt digital clubbing, cyanosis, or pedal edema. She has chronic healed excoriations to her skin mostly from itching. NEUROLOGIC: The exam was grossly nonfocal. LABORATORY DATA: From my review are as follows: White cell count 6500, hemoglobin 9.7, hematocrit 29.9 and platelets 359. INR 1.15. Serum sodium 134, potassium 4.4, chloride 89, bicarbonate 27, BUN 33, creatinine 7.4 and glucose of 157. Magnesium was 1.6. Troponin was 0.214. CK, CK-MB within normal limits. Liver function test within normal limits. Lipase and amylase within normal limits. Urine test was negative. No microbiology studies. Radiographic studies have been reviewed. I have also reviewed the radiologist's interpretation. Chest x-ray was done. It shows slight increased interstitial markings as well as gross cardiomegaly consistent with mild interstitial edema and a Port-A-Cath catheter tip is in the right atrium. No gross pneumothorax, no gross bony fracture. ASSESSMENT AND PLAN: We have a young lady really in with hypertensive emergency and doing relatively better. Respiratory ulna, she is fine. She is on 2 liters nasal cannula. We will wean oxygen to keep her sats greater than 92%. I have advised her to get a sleep study done. BiPAP will be offered on a p.r.n. basis. Bronchodilators will be on a p.r.n. basis. Aspiration precautions will be maintained. From a cardiovascular standpoint, she is now being weaned off the Cardene drip with the institution of p.o. meds. She is now able to keep them down. We will hopefully get her off the Cardene drip as soon as possible. I note the slightly elevated troponin that may well be a stress release related to the hypertensive emergency. Cardiology evaluation will be at the behest of the attending physician. EKG was unremarkable. From a GI and nutritional standpoint, oral nutrition will be the feeding modality of choice. She will be placed on GI prophylaxis and aspiration precautions will be maintained. From an infectious disease standpoint, no signs or symptoms of overwhelming sepsis. No acute indication for anti-infective therapy. We will follow clinically. From a renal standpoint, she is on dialysis right now. Visitor Use Assistant has seen her. She was feeling better. I will defer to them. Electrolytes will be followed and corrected as necessary. From a RADAR OPERATOR standpoint, the exam is grossly nonfocal. No acute indication for neuro imaging. We will follow her clinically. From a hematologic standpoint, she is on DVT prophylaxis. Anemia is probably related to chronic disease. We will follow her clinically. From a general and hospital healthcare maintenance standpoint, she will be started on GI prophylaxis. She is on DVT prophylaxis. Flu and pneumonia vaccination will be per protocol. Thank you very much for the consult, Dr. Coto, and . will follow along and make further recommendations as picture progresses/becomes as becomes clearer. She is critically ill on life sustaining interventions including vasopressor medications at risk for further deterioration. I have spent about 30-35 minutes of critical care time without overlap and excluding any procedural time that may be necessary. JOB# [id number] ZANE/CHIN
[2017-03-04] MEDS: PROCARDIA XL PO SCH (10:31)
[2017-03-04] MEDS: COZAAR PO SCH (10:31)
[2017-03-04] MEDS: PEPCID PO SCH (10:31)
[2017-03-04] MEDS: LOVENOX SUB-Q SCH (10:33)
[2017-03-04] MEDS: PAMELOR PO SCH ×2 (10:36→22:02)
[2017-03-04] MEDS: LOPRESSOR PO SCH ×3 (10:40→20:30)
[2017-03-04] MEDS: APRESOLINE PO SCH ×3 (10:40→20:30)
[2017-03-04] MEDS ORDERED: DILAUDID PO PRN (12:53)
--- NOTE | 2017-03-04 13:03 | Progress Note ---
Subjective Date of service: 03/04/17 Interval history: Assessment and plan: Accelerated hypertension. Fairly well controlled. Continue antihypertensive medications including labetalol, hydralazine, nifedipine and clonidine. Monitor blood pressure Diabetic gastroparesis. Continue antiemetics and Reglan. Supportive care. Diabetes mellitus type 2. Continue Accu-Cheks and sliding scale coverage ESRD. Continue scheduled hemodialysis per nephrology. Hyperlipidemia.: Continue statin Chronic diastolic heart failure. Echocardiogram August 2016 reveals severe concentric left ventricle hypertrophy with left ventricle systolic function that is normal at 50-60%. Moderate pulmonary hypertension. Chronic pain syndrome: At a long discussion with the patient. She says she takes the oxycodone 30 mg 4 times a day for several years and apparently sees M.D. at the pain clinic. She says she hurts all over. Decreased the Dilaudid 1 mg and increases the frequency to every 4 hours. Add oxycodone 10 mg 3 times daily. Anemia of chronic renal: The new Epogen during dialysis per nephrology recommendations Objective - Constitutional Vitals: Vital Signs - 12hr 03/04/17 03/04/17 03/04/17 02:45 07:00 07:32 Temperature 98.6 F Pulse Rate [ 85 Right Radial] Respiratory 20 20 24 Rate Blood Pressure Blood Pressure 169/81 [Left Arm] O2 Sat by Pulse 71 L Oximetry 03/04/17 10:31 Temperature Pulse Rate [ Right Radial] Respiratory Rate Blood Pressure 169/81 Blood Pressure [Left Arm] O2 Sat by Pulse Oximetry General appearance: Present: no acute distress - EENT Eyes: PERRL, EOM intact ENT: hearing intact, clear oral mucosa - Neck Neck: supple, normal ROM, no masses or JVD - Respiratory Respiratory effort: normal Respiratory: bilateral: CTA - Breasts Breasts: deferred - Cardiovascular Rhythm: regular Heart Sounds: Present: S1 & S2 Extremities: No edema - Gastrointestinal General gastrointestinal: Present: soft, non-tender. Absent: hepatomegaly, splenomegaly Rectal Exam: deferred - Integumentary Integumentary: clear - Musculoskeletal Musculoskeletal: strength equal bilaterally - Neurologic Neurologic: CNII-XII intact, moves all extremities - Psychiatric Psychiatric: appropriate mood/affect - Labs CBC & Chem 7: 03/02/17 14:43 03/02/17 14:43 Labs: Abnormal lab results 05/18/17 05/19/17 Range/Units 23:21 12:21 POC Glucose 147 H 129 H (70-105)
--- NOTE | 2017-03-04 13:31 | Progress Note ---
Assessment and Plan - Patient Problems (1) ESRD on hemodialysis Current Visit: Yes Status: Chronic Plan to address problem: cont HD on // schedule (2) Accelerated hypertension Current Visit: Yes Status: Acute Plan to address problem: pt still not able to tolerate po BP meds. cont clonidine patch. will target UF of 3kg today with HD (3) Diabetes mellitus type 2 in obese Current Visit: Yes Status: Acute Plan to address problem: glucose control as per primary attending (4) Gastroparesis due to DM Current Visit: Yes Status: Acute Plan to address problem: Antiemetics. Continue management by primary attending Subjective Date of service: 03/04/17 Interval history: pt still c/o epigastric pain, nausea. Objective - Vital Signs Vital signs: Vital Signs - 12hr 03/04/17 03/04/17 03/04/17 02:45 07:00 07:32 Temperature 98.6 F Pulse Rate [ 85 Right Radial] Respiratory 20 20 24 Rate Blood Pressure Blood Pressure 169/81 [Left Arm] O2 Sat by Pulse 71 L Oximetry 03/04/17 10:31 Temperature Pulse Rate [ Right Radial] Respiratory Rate Blood Pressure 169/81 Blood Pressure [Left Arm] O2 Sat by Pulse Oximetry - General Appearance General appearance: obese, chronically ill, fatigue EENT: ATNC, PERRL, mucous membranes moist Neck: no JVD Respiratory: Present: Clear to Ascultation Cardiology: regular, S1S2 Gastrointestinal: tenderness Integumentary: no rash, other (no edema ) Neurologic: no focal deficit, alert and oriented x3, strength 5/5, CN 3-12 intact Psychiatric: depressed - Lab 03/02/17 14:43 03/02/17 14:43 Most recent lab results Calcium 9.5 mg/dL (8.4-10.2) 03/02/17 14:43 Phosphorus 4.20 mg/dL (2.5-4.5) 03/02/17 14:43 Magnesium 1.60 mg/dL (1.7-2.3) L 03/02/17 14:43
[2017-03-04] MEDS: ROXICODONE PO SCH ×2 (13:36→22:02)
[2017-03-04] MEDS: BENADRYL PO SCH ×2 (13:36→20:30)
[2017-03-04] MEDS: REGLAN PO PRN (13:37)
--- NOTE | 2017-03-04 16:27 | Progress Note ---
Assessment and Plan - Patient Problems (1) Accelerated hypertension Current Visit: Yes Status: Acute Plan to address problem: - resolved - continue p.o. 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 (4) Acute hypoxemic respiratory failure Current Visit: No Status: Acute Plan to address problem: - wean of oxygen for sats > 92% - HD/UF for volume control - prn bronchodilators and pulmonary toilet Subjective Date of service: 03/04/17 Principal diagnosis: Hypertensive Crises Interval history: Seen and examined at bedside; 24 hour events reviewed; nursing and respiratory care staff consulted; no adverse overnight events reported to me; resting peacefully in bed; denies acute chest pains or increased SOB; itching is better Objective Vital Signs - 12hr 03/04/17 03/04/17 03/04/17 07:00 07:32 10:31 Temperature 98.6 F Pulse Rate [ 85 Right Radial] Respiratory 20 24 Rate Blood Pressure 169/81 Blood Pressure 169/81 [Left Arm] O2 Sat by Pulse 71 L Oximetry Constitutional: no acute distress, other (somnolent) Eyes: non-icteric ENT: oropharynx moist Neck: supple, no lymphadenopathy Effort: mildly labored Ascultation: Bilateral: rales (bases) Cardiovascular: regular rate and rhythm Gastrointestinal: normoactive bowel sounds, soft, non-tender, non-distended Integumentary: rash Extremities: no cyanosis, no edema, pulses normal, no ischemia or petechiae Neurologic: normal mental status, non-focal exam, pupils equal and round, motor strength normal and Psychiatric: mood appropriate, affect normal CBC and BMP: 03/02/17 14:43 03/02/17 14:43 ABG, PT/INR, D-dimer: PT/INR, D-dimer PT 14.6 Sec. (12.2-14.9) 03/02/17 15:14 INR 1.15 (0.87-1.13) H 03/02/17 15:14 Abnormal lab findings: Abnormal Labs 03/03/17 03/04/17 23:21 12:21 POC Glucose 147 H 129 H
[2017-03-05] MEDS: DILAUDID IV PRN ×6 (00:13→22:21)
[2017-03-05] MEDS: ATIVAN IV PRN ×3 (01:43→22:23)
[2017-03-05] MEDS: APRESOLINE IV PRN ×2 (06:10→12:05)
[2017-03-05] MEDS: ROXICODONE PO SCH ×3 (06:11→21:33)
[2017-03-05] MEDS: BENADRYL PO SCH ×3 (06:11→21:34)
[2017-03-05] MEDS: APRESOLINE PO SCH ×4 (06:56→20:55)
[2017-03-05] MEDS: LOPRESSOR PO SCH ×4 (06:56→20:55)
[2017-03-05] MEDS: PAMELOR PO SCH ×2 (09:25→22:21)
[2017-03-05] MEDS: PROCARDIA XL PO SCH ×2 (09:25→22:21)
[2017-03-05] MEDS: COZAAR PO SCH (09:25)
--- NOTE | 2017-03-05 09:25 | Progress Note ---
Assessment and Plan (1) Accelerated hypertension Current Visit: Yes Status: Acute Plan to address problem: - resolved - continue p.o. 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 (4) Acute hypoxemic respiratory failure Current Visit: No Status: Acute Plan to address problem: - wean of oxygen for sats > 92% - HD/UF for volume control - prn bronchodilators and pulmonary toilet Subjective Date of service: 03/05/17 Principal diagnosis: Hypertensive Crises Interval history: Seen and examined at bedside; 24 hour events reviewed; nursing and respiratory care staff consulted; no adverse overnight events reported to me; no new issues respiratory luna; denies acute chest pains or increased SOB Objective Vital Signs - 12hr 03/04/17 03/04/17 03/05/17 22:00 23:49 06:10 Temperature 98.9 F Pulse Rate 80 Pulse Rate [ 80 Left Radial] Pulse Rate [ 80 Right Radial] Respiratory 16 Rate Blood Pressure 202/107 Blood Pressure 139/72 149/71 [Left Arm] O2 Sat by Pulse 98 Oximetry 03/05/17 03/05/17 06:35 06:56 Temperature 98.2 F Pulse Rate 82 Pulse Rate [ Left Radial] Pulse Rate [ 80 Right Radial] Respiratory 16 Rate Blood Pressure 188/96 Blood Pressure 204/107 [Left Arm] O2 Sat by Pulse Oximetry Constitutional: no acute distress, alert Eyes: non-icteric ENT: oropharynx moist Neck: supple, no lymphadenopathy Effort: normal Ascultation: Bilateral: clear, diminished breath sounds Cardiovascular: regular rate and rhythm Gastrointestinal: normoactive bowel sounds, soft, non-tender, non-distended Integumentary: rash Extremities: no cyanosis, no edema, pulses normal, no ischemia or petechiae Neurologic: normal mental status, non-focal exam, pupils equal and round, motor strength normal and Psychiatric: depressed CBC and BMP: 03/02/17 14:43 03/02/17 14:43 ABG, PT/INR, D-dimer: PT/INR, D-dimer PT 14.6 Sec. (12.2-14.9) 03/02/17 15:14 INR 1.15 (0.87-1.13) H 03/02/17 15:14 Abnormal lab findings: Abnormal Labs 03/03/17 03/04/17 03/05/17 23:21 12:21 06:00 POC Glucose 147 H 129 H 107 H
[2017-03-05] MEDS: PEPCID PO SCH (09:26)
[2017-03-05] MEDS: LOVENOX SUB-Q SCH (09:27)
--- NOTE | 2017-03-05 12:37 | Progress Note ---
Assessment and Plan Assessment and plan: Accelerated hypertension. Continue antihypertensive medications labetalol, hydralazine, nifedipine and clonidine. Increased nifedipine to BID. Diabetic gastroparesis. Continue antiemetics and Reglan. IV fluid hydration. Supportive care. Advance diet as tolerated. Diabetes mellitus type 2. Continue Accu-Cheks and sliding scale as. ESRD. Continue scheduled hemodialysis per nephrology. Hyperlipidemia. Chronic diastolic heart failure. Echocardiogram August 2016 reveals severe concentric left ventricle hypertrophy with left ventricle systolic function that is normal at 50-60%. Moderate pulmonary hypertension. History Interval history: No new issues overnight. Hospitalist Physical - Constitutional Vitals: Temp Pulse Resp BP Pulse Ox 99 F 85 18 180/90 100 03/05/17 07:10 03/05/17 07:10 03/05/17 07:10 03/05/17 12:05 03/05/17 07:10 General appearance: Present: no acute distress - EENT Eyes: Present: PERRL, EOM intact ENT: hearing intact, clear oral mucosa, dentition normal - Neck Neck: Present: supple, normal ROM - Respiratory Respiratory effort: normal Respiratory: bilateral: CTA - Cardiovascular Rhythm: regular Heart Sounds: Present: S1 & S2. Absent: gallop, rub - Extremities Extremities: no ischemia, No edema, Full ROM - Abdominal General gastrointestinal: soft, non-tender, non-distended, normal bowel sounds - Integumentary Integumentary: Present: clear, warm, dry - Neurologic Neurologic: CNII-XII intact, moves all extremities Results - Labs CBC & Chem 7: 03/02/17 14:43 03/02/17 14:43 Labs: Laboratory Last Values WBC 6.5 K/mm3 (4.5-11.0) 03/02/17 14:43 RBC 3.48 M/mm3 (3.65-5.03) L 03/02/17 14:43 Hgb 9.7 gm/dl (10.1-14.3) L 03/02/17 14:43 Hct 29.9 % (30.3-42.9) L 03/02/17 14:43 MCV 86 fl (79-97) 03/02/17 14:43 MCH 28 pg (28-32) 03/02/17 14:43 MCHC 33 % (30-34) 03/02/17 14:43 RDW 16.5 % (13.2-15.2) H 03/02/17 14:43 Plt Count 359 K/mm3 (140-440) 03/02/17 14:43 Lymph % (Auto) 8.4 % (13.4-35.0) L 03/02/17 14:43 [place] % (Auto) 3.8 % (0.0-7.3) 03/02/17 14:43 Eos % (Auto) 0.1 % (0.0-4.3) 03/02/17 14:43 Baso % (Auto) 0.4 % (0.0-1.8) 03/02/17 14:43 Lymph # 0.5 K/mm3 (1.2-5.4) L 03/02/17 14:43 [place] # 0.2 K/mm3 (0.0-0.8) 03/02/17 14:43 Eos # 0.0 K/mm3 (0.0-0.4) 03/02/17 14:43 Baso # 0.0 K/mm3 (0.0-0.1) 03/02/17 14:43 Seg Neutrophils % 87.3 % (40.0-70.0) H 03/02/17 14:43 Seg Neutrophils # 5.7 K/mm3 (1.8-7.7) 03/02/17 14:43 PT 14.6 Sec. (12.2-14.9) 03/02/17 15:14 INR 1.15 (0.87-1.13) H 03/02/17 15:14 APTT 29.1 Sec. (24.2-36.6) 03/02/17 15:14 Sodium 134 mmol/L (137-145) L 03/02/17 14:43 Potassium 4.4 mmol/L (3.6-5.0) 03/02/17 14:43 Chloride 89.0 mmol/L (98-107) L 03/02/17 14:43 Carbon Dioxide 27 mmol/L (22-30) 03/02/17 14:43 Anion Gap 22 mmol/L 03/02/17 14:43 BUN 33 mg/dL (7-17) H 03/02/17 14:43 Creatinine 7.4 mg/dL (0.7-1.2) H 03/02/17 14:43 Estimated GFR 8 ml/min 03/02/17 14:43 BUN/Creatinine Ratio 4.45 % 03/02/17 14:43 Glucose 157 mg/dL (65-100) H 03/02/17 14:43 POC Glucose 107 (70-105) H 03/05/17 06:00 Calcium 9.5 mg/dL (8.4-10.2) 03/02/17 14:43 Phosphorus 4.20 mg/dL (2.5-4.5) 03/02/17 14:43 Magnesium 1.60 mg/dL (1.7-2.3) L 03/02/17 14:43 Total Bilirubin 0.20 mg/dL (0.1-1.2) 03/02/17 14:43 Direct Bilirubin < 0.2 mg/dL (0-0.2) 03/02/17 14:43 Indirect Bilirubin 0.0 mg/dL 03/02/17 14:43 AST 16 units/L (5-40) 03/02/17 14:43 ALT < 5 units/L (7-56) L 03/02/17 14:43 Alkaline Phosphatase < 5 units/L (35-129) L 03/02/17 14:43 Total Creatine Kinase 147 units/L (30-135) H 03/02/17 14:43 CK-MB (CK-2) 2.7 ng/mL (0.0-4.0) 03/02/17 14:43 CK-MB (CK-2) Rel Index 1.8 (0-4) 03/02/17 14:43 Troponin T 0.214 ng/mL (0.00-0.029) H* 03/02/17 14:43 NT-Pro-B Natriuret Pep > 27410 pg/mL (0-450) H 03/02/17 14:43 Total Protein 7.8 g/dL (6.3-8.2) 03/02/17 14:43 Albumin 3.9 g/dL (3.9-5) 03/02/17 14:43 Albumin/Globulin Ratio 1.0 % 03/02/17 14:43 Triglycerides 66 mg/dL (2-149) 03/02/17 14:43 Cholesterol 158 mg/dL (50-199) 03/02/17 14:43 LDL Cholesterol Direct 74 mg/dL (50-130) 03/02/17 14:43 HDL Cholesterol 71 mg/dL (40-59) H 03/02/17 14:43 Cholesterol/HDL Ratio 2.22 % 03/02/17 14:43 Amylase 79 units/L (27-131) 03/02/17 14:43 Lipase 27 units/L (13-60) 03/02/17 14:43 HCG, Qual Negative (Negative) 03/02/17 15:14
--- NOTE | 2017-03-05 12:52 | Progress Note ---
Assessment and Plan - Patient Problems (1) ESRD on hemodialysis Current Visit: Yes Status: Chronic Plan to address problem: cont HD on // schedule (2) Accelerated hypertension Current Visit: Yes Status: Acute Plan to address problem: resume po BP meds as tolerate. cont clonidine patch. will increase UF with HD as tolerated. (3) Diabetes mellitus type 2 in obese Current Visit: Yes Status: Acute Plan to address problem: glucose control as per primary attending (4) Gastroparesis due to DM Current Visit: Yes Status: Acute Plan to address problem: Antiemetics. Continue management by primary attending Subjective Date of service: 03/05/17 Principal diagnosis: Hypertensive Crises Interval history: pt still c/o epigastric pain, nausea, not able to tolerate po BP meds. BP remains uncontrolled Objective - Vital Signs Vital signs: Vital Signs - 12hr 03/05/17 03/05/17 03/05/17 06:10 06:35 06:56 Temperature 98.2 F Pulse Rate 80 82 Pulse Rate [ Left Radial] Pulse Rate [ 80 Right Radial] Respiratory 16 Rate Blood Pressure 202/107 188/96 Blood Pressure 204/107 [Left Arm] O2 Sat by Pulse Oximetry 03/05/17 03/05/17 03/05/17 07:10 09:25 12:05 Temperature 99 F Pulse Rate Pulse Rate [ 85 Left Radial] Pulse Rate [ Right Radial] Respiratory 18 Rate Blood Pressure 206/95 180/90 Blood Pressure 216/95 [Left Arm] O2 Sat by Pulse 100 Oximetry - General Appearance General appearance: appears stated age, chronically ill EENT: ATNC, PERRL, mucous membranes moist Neck: no JVD Respiratory: Present: Clear to Ascultation Cardiology: regular, S1S2 Gastrointestinal: tenderness, obese Integumentary: no rash, other (no edema ) Neurologic: no focal deficit, alert and oriented x3, strength 5/5, CN 3-12 intact Psychiatric: depressed, cooperative - Lab 03/02/17 14:43 03/02/17 14:43 Most recent lab results Calcium 9.5 mg/dL (8.4-10.2) 03/02/17 14:43 Phosphorus 4.20 mg/dL (2.5-4.5) 03/02/17 14:43 Magnesium 1.60 mg/dL (1.7-2.3) L 03/02/17 14:43
[2017-03-05] MEDS: ZOFRAN IV PRN (14:16)
[2017-03-05] MEDS: REGLAN PO PRN (15:07)
[2017-03-06] MEDS: ATIVAN IV PRN ×6 (03:04→22:06)
[2017-03-06] MEDS: DILAUDID IV PRN ×5 (03:05→22:06)
[2017-03-06] MEDS: ZOFRAN IV PRN ×4 (03:32→23:24)
[2017-03-06] MEDS: ROXICODONE PO SCH ×3 (05:00→21:23)
--- NOTE | 2017-03-06 08:00 | Discharge Summary ---
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 She has a history of diabetic gastroparesis and has had numerous hospitalizations on account of exacerbations which are usually associated with accelerated hypertension and volume overload. Patient again presents with a similar episode of intractable nausea and vomiting associated with her gastroparesis. She awakened at 5 AM prior to admission with severe abdominal pain located in epigastric area described as squeezing pain radiating to the back with no known aggravating or relieving factors. She Rated the pain as a 10 over 10. It was associated nausea and vomiting and she wasn't able to keep foods or medications down. As a result, patient was noted to have accelerated hypertension with a blood pressure of 230/ 118 on admission. Patient was admitted to the ICU and started on a Cardene drip. Patient was later transitioned to her home medications and her blood pressure eventually done hospital stay stabilized. Patient was transferred to the floor. Patient received her schedule hemodialysis on Tuesday and was seen by nephrology consultation. The nausea and vomiting resolved with antiemetics. Patient was able to tolerate a regular diet. Therefore, patient is felt to have received maximal hospital benefit. Patient will be discharged home. Dedicated discharge time 32 minutes. Disposition: DISCHARGED TO HOME OR SELFCARE Time spent for discharge: 32 - Discharge Diagnoses (1) Accelerated hypertension Status: Acute (2) Anemia in chronic kidney disease Status: Acute (3) Diabetes mellitus type 2 in obese Status: Acute (4) Gastroparesis due to DM Status: Acute (5) ESRD on hemodialysis Status: Chronic (6) End stage renal disease on dialysis Status: Chronic (7) Accelerated hypertension Status: Acute Core Measure Documentation - Palliative Care Palliative Care/ Comfort Measures: Not Applicable - Core Measures Any of the following diagnoses?: none Exam - Constitutional Vitals: Temp Pulse Resp BP Pulse Ox 98.9 F 82 18 161/82 96 03/06/17 00:00 03/06/17 00:00 03/06/17 00:00 03/06/17 00:00 03/06/17 00:00 General appearance: Present: no acute distress, well-nourished - EENT Eyes: Present: PERRL ENT: hearing intact, clear oral mucosa - Neck Neck: Present: supple, normal ROM - Respiratory Respiratory effort: normal Respiratory: bilateral: CTA - Cardiovascular Heart Sounds: Present: S1 & S2. Absent: rub, click - Extremities Extremities: pulses symmetrical, No edema Peripheral Pulses: within normal limits - Abdominal General gastrointestinal: Present: soft, non-tender, non-distended, normal bowel sounds Female genitourinary: Present: normal - Integumentary Integumentary: Present: clear, warm, dry - Musculoskeletal Musculoskeletal: gait normal, strength equal bilaterally - Psychiatric Psychiatric: appropriate mood/affect, intact judgment & insight - Neurologic Neurologic: CNII-XII intact, moves all extremities Plan Activity: no restrictions Weight Bearing Status: Full Weight Bearing Diet: diabetic, renal Follow up with: PRIMARY CAREMD [Primary Care Provider] - 3-5 Days TERRI MORAN MD [Staff Physician] - 7 Days Prescriptions: cloNIDine-TTS PATCH [Catapres-Tts Patch] 0.3 mg TD QWEEK #7 patch Dicyclomine [Bentyl] 20 mg PO QID PRN #30 tablet PRN Reason: ABDOMINAL PAIN Famotidine [Pepcid] 20 mg PO QDAY #30 tablet hydrALAZINE [Apresoline TAB] 100 mg PO TID #90 tab Losartan [Cozaar] 100 mg PO QDAY #30 tablet Metoclopramide [Reglan TAB] 10 mg PO ACHS PRN #30 tablet PRN Reason: nausea or vomiting Metoprolol [Lopressor TAB] 100 mg PO TID #90 tablet NIFEdipine XL [Procardia Xl] 90 mg PO Q12HR #60 tablet Nortriptyline [Pamelor] 25 mg PO BID #60 capsule oxyCODONE [Roxicodone TAB] 10 mg PO Q8H #12 tablet
[2017-03-06] MEDS: BENADRYL PO SCH ×3 (08:17→21:22)
[2017-03-06] MEDS: LOPRESSOR PO SCH ×3 (08:18→21:24)
[2017-03-06] MEDS: APRESOLINE PO SCH ×3 (08:18→21:22)
[2017-03-06] MEDS: LOVENOX SUB-Q SCH (09:53)
[2017-03-06] MEDS: COZAAR PO SCH (10:09)
[2017-03-06] MEDS: PAMELOR PO SCH ×2 (10:10→21:24)
[2017-03-06] MEDS: PROCARDIA XL PO SCH ×2 (10:10→21:25)
[2017-03-06] MEDS: PEPCID PO SCH (10:10)
[2017-03-06] MEDS ORDERED: FLUSH HEPARIN IV ONE (12:00)
--- NOTE | 2017-03-06 12:05 | Progress Note ---
Assessment and Plan - Patient Problems (1) ESRD on hemodialysis Current Visit: Yes Status: Chronic Plan to address problem: cont HD on // schedule. stable for discharge from renal stand point. (2) Accelerated hypertension Current Visit: Yes Status: Acute Plan to address problem: resume po BP meds as tolerated. cont clonidine patch. will increase UF with HD as tolerated. (3) Diabetes mellitus type 2 in obese Current Visit: Yes Status: Acute Plan to address problem: glucose control as per primary attending (4) Gastroparesis due to DM Current Visit: Yes Status: Acute Plan to address problem: Antiemetics. Continue management by primary attending Subjective Date of service: 03/06/17 Principal diagnosis: Hypertensive Crises Interval history: pt with improved BP, improved epigastric pain. Objective - Vital Signs Vital signs: Vital Signs - 12hr 03/06/17 03/06/17 03/06/17 07:05 08:18 10:09 Temperature 97.7 F Pulse Rate 87 Pulse Rate [ 85 Left Radial] Respiratory 16 Rate Blood Pressure 130/80 169/81 Blood Pressure 132/63 [Left Arm] - General Appearance General appearance: appears stated age, chronically ill, fatigue EENT: ATNC, PERRL, mucous membranes moist Neck: no JVD Respiratory: Present: Clear to Ascultation Cardiology: regular, S1S2 Gastrointestinal: normal, obese Integumentary: no rash, other (no edema ) Neurologic: no focal deficit, alert and oriented x3, CN 3-12 intact Psychiatric: depressed - Lab 03/02/17 14:43 03/02/17 14:43 Most recent lab results Calcium 9.5 mg/dL (8.4-10.2) 03/02/17 14:43 Phosphorus 4.20 mg/dL (2.5-4.5) 03/02/17 14:43 Magnesium 1.60 mg/dL (1.7-2.3) L 03/02/17 14:43
[2017-03-06] MEDS: BENTYL PO PRN (12:59)
--- NOTE | 2017-03-06 13:42 | Progress Note ---
Assessment and Plan (1) Accelerated hypertension Current Visit: Yes Status: Acute Plan to address problem: - resolved - continue p.o. 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 (4) Acute hypoxemic respiratory failure Current Visit: No Status: Acute Plan to address problem: - wean of oxygen for sats > 92% - continue HD/UF for volume control - prn bronchodilators and pulmonary toilet Subjective Date of service: 03/06/17 Principal diagnosis: Hypertensive Crises Interval history: Seen and examined at bedside; 24 hour events reviewed; nursing and respiratory care staff consulted; no adverse overnight events reported to me; resting peacefully in bed; denies acute chest pains or increased SOB Objective Vital Signs - 12hr 03/06/17 03/06/17 03/06/17 07:05 08:18 10:09 Temperature 97.7 F Pulse Rate 87 Pulse Rate [ 85 Left Radial] Respiratory 16 Rate Blood Pressure 130/80 169/81 Blood Pressure 132/63 [Left Arm] Constitutional: no acute distress, other (somnolent) Eyes: non-icteric ENT: oropharynx moist Neck: supple, no lymphadenopathy Effort: normal Ascultation: Bilateral: diminished breath sounds, rales Cardiovascular: regular rate and rhythm Gastrointestinal: normoactive bowel sounds, soft, non-tender, non-distended Integumentary: rash Extremities: no cyanosis, no edema, pulses normal, no ischemia or petechiae Neurologic: normal mental status, non-focal exam, pupils equal and round, motor strength normal and Psychiatric: mood appropriate, affect normal CBC and BMP: 03/02/17 14:43 03/02/17 14:43 ABG, PT/INR, D-dimer: PT/INR, D-dimer PT 14.6 Sec. (12.2-14.9) 03/02/17 15:14 INR 1.15 (0.87-1.13) H 03/02/17 15:14 Abnormal lab findings: Abnormal Labs 03/03/17 03/04/17 03/05/17 23:21 12:21 06:00 POC Glucose 147 H 129 H 107 H 03/05/17 03/05/17 03/05/17 11:56 17:00 21:26 POC Glucose 142 H 164 H 160 H 03/06/17 03/06/17 05:53 12:16 POC Glucose 138 H 162 H
[2017-03-07] MEDS: DILAUDID IV PRN ×2 (02:59→07:58)
[2017-03-07] MEDS: ROXICODONE PO SCH (05:00)
[2017-03-07] MEDS: ATIVAN IV PRN ×2 (05:38→09:19)
[2017-03-07] MEDS: BENADRYL PO SCH ×3 (05:47→21:31)
--- NOTE | 2017-03-07 07:30 | XRay Report ---
ABDOMEN RADIOGRAPH INDICATION: Abdominal pain. COMPARISON: 12/26/2016 FINDINGS: Portable, single, frontal abdominal radiograph again demonstrates nonobstructive bowel gas pattern with mild increased ascending colon stool. No focal suspicious calcifications, pneumatosis or pneumoperitoneum, though lung bases incompletely imaged. Hepatic tip approaches the iliac crest. Stable cholecystectomy clips, adjacent stef hepatis embolization coil-like material, bilateral ESSURE devices and right hip hardware. Intact bones. CONCLUSION: No acute abdominal radiographic abnormality with mild increased colonic stool with various stable iatrogenic changes and hepatomegaly, as described. Please correlate. Thank you for the opportunity to participate in this patient's care.
--- NOTE | 2017-03-07 08:57 | Progress Note ---
Assessment and Plan Accelerated hypertension. Continue antihypertensive medications labetalol, hydralazine, nifedipine and clonidine. Increased nifedipine to BID. Diabetic gastroparesis. Continue antiemetics and Reglan. IV fluid hydration. Supportive care. Advance diet as tolerated. Diabetes mellitus type 2. Continue Accu-Cheks and sliding scale as. ESRD. Continue scheduled hemodialysis per nephrology. Hyperlipidemia. Chronic diastolic heart failure. Echocardiogram August 2016 reveals severe concentric left ventricle hypertrophy with left ventricle systolic function that is normal at 50-60%. Moderate pulmonary hypertension. - Patient Problems (1) Accelerated hypertension Current Visit: Yes Status: Acute (2) Anemia in chronic kidney disease Current Visit: Yes Status: Acute (3) Diabetes mellitus type 2 in obese Current Visit: Yes Status: Acute (4) Gastroparesis due to DM Current Visit: Yes Status: Acute (5) ESRD on hemodialysis Current Visit: Yes Status: Chronic (6) End stage renal disease on dialysis Current Visit: Yes Status: Chronic (7) Accelerated hypertension Current Visit: No Status: Acute Subjective Date of service: 03/06/17 Principal diagnosis: Hypertensive Crises Interval history: No new issues overnight. Patient still complains of nausea and vomiting. Patient states that she is unable to keep her breakfast and lunch down. Objective - Constitutional Vitals: Vital Signs - 12hr 03/06/17 03/07/17 03/07/17 21:24 00:00 06:03 Temperature 99.5 F Pulse Rate 80 Pulse Rate [ 81 81 Right Radial] Respiratory 18 20 Rate Blood Pressure 160/80 Blood Pressure 136/75 [Left Arm] O2 Sat by Pulse 96 Oximetry General appearance: Present: no acute distress, well-nourished - EENT Eyes: PERRL, EOM intact ENT: hearing intact, clear oral mucosa Ears: bilateral: normal - Neck Neck: supple, normal ROM - Respiratory Respiratory effort: normal Respiratory: bilateral: CTA - Breasts Breasts: normal - Cardiovascular Rhythm: regular Heart Sounds: Present: S1 & S2. Absent: gallop, rub Extremities: pulses intact, No edema, normal color, Full ROM - Gastrointestinal General gastrointestinal: Present: soft, non-tender, non-distended, normal bowel sounds - Genitourinary Female genitourinary: normal - Integumentary Integumentary: clear, warm, dry - Musculoskeletal Musculoskeletal: 1, strength equal bilaterally - Neurologic Neurologic: moves all extremities - Psychiatric Psychiatric: memory intact, appropriate mood/affect, intact judgment & insight - Labs CBC & Chem 7: 03/02/17 14:43 03/02/17 14:43 Labs: Abnormal lab results 03/06/17 03/06/17 03/06/17 Range/Units 12:16 16:42 22:28 POC Glucose 162 H 114 H 216 H (70-105) 03/07/17 Range/Units 07:52 POC Glucose 137 H (70-105)
[2017-03-07] MEDS: PEPCID PO SCH (09:19)
[2017-03-07] MEDS: PAMELOR PO SCH ×2 (09:19→21:29)
[2017-03-07] MEDS: ZOFRAN IV PRN (09:25)
[2017-03-07] MEDS: TRIPLE ANTIBIOTIC TP SCH ×4 (09:37→21:29)
[2017-03-07] MEDS: APRESOLINE PO SCH ×3 (09:38→21:28)
[2017-03-07] MEDS: LOPRESSOR PO SCH ×3 (09:38→21:28)
[2017-03-07] MEDS: COZAAR PO SCH (09:38)
[2017-03-07] MEDS: LOVENOX SUB-Q SCH (09:39)
[2017-03-07] MEDS: PROCARDIA XL PO SCH ×2 (09:39→21:29)
--- NOTE | 2017-03-07 20:01 | XRay Report ---
FINAL REPORT EXAM: XR ABDOMEN 1V AP HISTORY: abd. pain TECHNIQUE: Supine views of the abdomen PRIORS: Abdomen x-ray 10/14/2016 FINDINGS: The bowel gas pattern is nonspecific. No free air is identified. Moderate stool is present throughout the colon. Soft tissues have no evidence for calcifications. There is a Charity's lobe of the right lobe of the liver again noted. Calcifications in the right upper quadrant are likely from a prior cholecystectomy, stable. However, in the interim, there is and anastomotic suture line now seen to the right of L2. Bilateral fallopian tube coils are present in the pelvis, unchanged. The bony structures demonstrate multiple orthopedic screws in the proximal right femur, unchanged. IMPRESSION: Nonspecific, nonobstructive bowel gas pattern with no acute process noted.
[2017-03-08] MEDS: REGLAN PO PRN (02:20)
--- NOTE | 2017-03-08 03:15 | XRay Report ---
FINAL REPORT PROCEDURE: XR ABDOMEN 2V TECHNIQUE: Abdominal series, including supine and upright AP views. HISTORY: possible proferation COMPARISON: 03/07/2017 FINDINGS: Bowel gas pattern:Nonobstructive . Masses or calcifications:Prior cholecystectomy. Bony structures:There has been orthopedic stabilization of the proximal right femur. Hardware has not changed.. Pneumoperitoneum:None . Other:No significant findings . IMPRESSION: No acute abnormality.
[2017-03-08] MEDS: BENADRYL PO SCH (07:23)
[2017-03-08] MEDS: ZOFRAN IV PRN (08:08)
[2017-03-08] MEDS: BENTYL PO PRN (08:13)
[2017-03-08] MEDS: APRESOLINE PO SCH (08:52)
[2017-03-08] MEDS: LOPRESSOR PO SCH (08:52)
[2017-03-08] MEDS: APRESOLINE IV PRN (08:52)
--- NOTE | 2017-03-08 10:16 | Event Note ---
Date: 03/08/17 Patient seen and examined. Patient complains of abdominal pain but appears to be comfortable. Patient with no acute abdomen. No rebound or guarding. Patient very disruptive yelling at nurses for pain medication. Patient appears to be exhibiting drug-seeking behavior. Patient states that she only wants pain medication and has no desire for eating or any kind of discharge planning. KUB was obtained yesterday which was found to be negative for any obstruction. Patient refused to attempt to tolerate diet. Patient will be discharged and is to follow-up with her pain clinic.
[2017-03-08] MEDS: COZAAR PO SCH (10:46)
[2017-03-08] MEDS: PAMELOR PO SCH (10:46)
[2017-03-08] MEDS: PROCARDIA XL PO SCH (10:46)
[2017-03-08] MEDS: PEPCID PO SCH (10:46)
[2017-03-08 10:47] VITALS: BP 197/97
[2017-03-08] MEDS: LOVENOX SUB-Q SCH (10:47)
[2017-03-08] MEDS: TRIPLE ANTIBIOTIC TP SCH (10:47)
[2017-03-08] MEDS ORDERED: FLUSH HEPARIN IV ONE (11:41)
== END 2017-03-08 12:00 | disposition home or self-care (01) | DRG 291 ==
LOC: ED 13:49 → CC1 16:40 → 3A 03-03 16:49
PROVIDERS: ADMIT Internal Medicine; ATTEND Hospitalist
PROC: 5A1D60Z (ICD-10-PCS; principal; 2017-03-03)
DX: I13.2 Hypertensive heart and chronic kidney disease with heart failure and with stage 5 chronic kidney disease, or end stage renal disease (principal); N18.6 End stage renal disease; J96.01 Acute respiratory failure with hypoxia; I16.1 Hypertensive emergency; I50.32 Chronic diastolic (congestive) heart failure; E87.1 Hypo-osmolality and hyponatremia; E11.43 Type 2 diabetes mellitus with diabetic autonomic (poly)neuropathy; K31.84 Gastroparesis; E11.65 Type 2 diabetes mellitus with hyperglycemia; E11.22 Type 2 diabetes mellitus with diabetic chronic kidney disease; J44.9 Chronic obstructive pulmonary disease, unspecified; M19.90 Unspecified osteoarthritis, unspecified site; D63.1 Anemia in chronic kidney disease; I27.2 Other secondary pulmonary hypertension; G89.4 Chronic pain syndrome; E66.9 Obesity, unspecified; F32.9 Major depressive disorder, single episode, unspecified; E78.5 Hyperlipidemia, unspecified; Z90.49 Acquired absence of other specified parts of digestive tract; Z82.49 Family history of ischemic heart disease and other diseases of the circulatory system; Z83.3 Family history of diabetes mellitus; Z99.2 Dependence on renal dialysis; Z88.8 Allergy status to other drugs, medicaments and biological substances; Z88.0 Allergy status to penicillin; Z98.51 Tubal ligation status; Z68.31 Body mass index [BMI] 31.0-31.9, adult; Z80.1 Family history of malignant neoplasm of trachea, bronchus and lung
CPT/HCPCS: 36415; 71010; 74000; 74020; 80048; 80061; 80074; 82150; 82550; 82553; 82962; 83690; 83735; 83880; 84100; 84484; 84703; 85025; 85610; 85730; 93005; 93010; 96374; 96375; 96376; 99291; A6250; J0360; J0885; J1170; J1200; J1642; J1650; J2060; J2405; J7050

== ENCOUNTER 2017-03-23 11:57 | Emergency (ER) | payer MEDICARE ==
[2017-03-23] MEDS ORDERED: MORPHINE IV ONE (12:55)
[2017-03-23] MEDS ORDERED: APRESOLINE IV ONE ×2 (12:55→16:46)
--- NOTE | 2017-03-23 13:00 | Emergency Department Report ---
HPI - General Time Seen by Provider: 03/23/17 12:48 - HPI HPI: This is a 36 year-old female presents to the emergency department by EMS from dialysis with complaint of abdominal pain, nausea and vomiting that she believes is exacerbation of her gastroparesis. The patient says that she got some dialysis but did not get it completed because of her symptoms. She has a past medical history of asthma, COPD, CHF, diabetes, gastroparesis and end-stage renal disease on dialysis Tuesday/Tuesday/Tuesday. Her primary care doctor is a Dr. Hernandez", and her group cio is Dr. Trevino. No recent travel or sick contacts at home. She did not take anything and was not given anything for her symptoms prior to presentation. She has a right arm AV graft and a left-sided chest port. ED Past Medical Hx - Past Medical History Hx Hypertension: Yes Hx Congestive Heart Failure: Yes Hx Diabetes: Yes Hx Renal Disease: Yes Hx Arthritis: Yes Hx Seizures: No Hx Asthma: Yes Hx COPD: Yes (3.5L/NC at home) Hx HIV: No Additional medical history: gastroporesis - Surgical History Hx Cholecystectomy: Yes (18 years ago) Additional Surgical History: c section, tubal ligation. fistula right arm - Social History Smoking Status: Never Smoker - Medications Home Medications: Home Medications Medication Instructions Recorded Confirmed Last Taken Type Dicyclomine [Bentyl] 20 mg PO QID PRN #30 tablet 03/06/17 Unknown Rx Famotidine [Pepcid] 20 mg PO QDAY #30 tablet 03/06/17 Unknown Rx Losartan [Cozaar] 100 mg PO QDAY #30 tablet 03/06/17 Unknown Rx Metoclopramide [Reglan TAB] 10 mg PO ACHS PRN #30 tablet 03/06/17 Unknown Rx Metoprolol [Lopressor TAB] 100 mg PO TID #90 tablet 03/06/17 Unknown Rx NIFEdipine XL [Procardia Xl] 90 mg PO Q12HR #60 tablet 03/06/17 Unknown Rx Nortriptyline [Pamelor] 25 mg PO BID #60 capsule 03/06/17 Unknown Rx cloNIDine-TTS PATCH [Catapres-Tts 0.3 mg TD QWEEK #7 patch 03/06/17 Unknown Rx Patch] hydrALAZINE [Apresoline TAB] 100 mg PO TID #90 tab 03/06/17 Unknown Rx oxyCODONE [Roxicodone TAB] 10 mg PO Q8H #12 tablet 03/06/17 Unknown Rx Promethazine [Phenergan TAB] 25 mg PO Q8H PRN #10 tab 03/23/17 Unknown Rx ED Review of Systems ROS: Stated complaint: TOBIAS/ABD PAIN Other details as noted in HPI Comment: All other systems reviewed and negative Constitutional: denies: chills, fever Eyes: denies: eye pain, eye discharge, vision change ENT: denies: ear pain, throat pain Respiratory: denies: cough, shortness of breath, wheezing Cardiovascular: denies: chest pain, palpitations Gastrointestinal: abdominal pain, nausea, vomiting Genitourinary: denies: urgency, dysuria, discharge Musculoskeletal: denies: back pain, joint swelling, arthralgia Skin: denies: rash, lesions Neurological: denies: headache, weakness, paresthesias Physical Exam - Physical Exam Physical Exam: GENERAL: The patient is well-developed well-nourished. HEENT: Normocephalic. Atraumatic. Extraocular motions are intact. Patient has moist mucous membranes. Pupils equal reactive to light bilaterally. NECK: Supple. Trachea is midline. CHEST/LUNGS: Clear to auscultation. There is no respiratory distress noted. HEART/CARDIOVASCULAR: Regular. There is no tachycardia. There is no gallop rub or murmur. ABDOMEN: Abdomen is soft. There is some generalized tenderness to palpation of the abdomen. No guarding or rebound tenderness. No peritoneal signs. Patient has normal bowel sounds. There is no abdominal distention. Obese habitus. SKIN: There is no rash. There is no edema. There is no diaphoresis. NEURO: The patient is awake, alert, and oriented. The patient is cooperative. The patient has no focal neurologic deficits. The patient has normal speech. MUSCULOSKELETAL: There is no tenderness or deformity. There is no limitation range of motion. There is no evidence of acute injury. Patient has dialysis needles and tubing in the right upper arm. ED Medical Decision Making - Lab Data Result diagrams: 03/23/17 14:16 03/23/17 14:16 - Radiology Data Radiology results: image reviewed interpreted by me: Bowel x-ray does not show any acute process. There is a moderate amount of stool seen in the intestines. - Medical Decision Making 36-year-old female presents to the emergency department with a complaint of abdominal pain, nausea, vomiting she presents with elevated blood pressures well. She has a history of diabetic gastroparesis and is well-known to this department. Patient was given a dose of pain medication and hydralazine and her blood pressure came down to a reasonable level. Labs are mostly unremarkable. There is no signs of DKA or HHNK. She does have renal insufficiency but she is end-stage renal disease. The potassium is at the high level of normal at 5. An abdominal x-ray was done that shows some stool throughout the intestines but otherwise no acute process. The patient has had multiple CT scans of the abdomen and pelvis over the past few months and years and has well-known gastroparesis. The patient presented with the dialysis needles and tubing still in her right upper extremity. We pulled the out and placed a pressure dressing. After a few doses of pain medication the patient is feeling improved. She did require 1 more dose of 10 mg of hydralazine for blood pressure control. I spoke with her group cio, Dr. Cote, who says that the patient appears safe for discharge home from the nephrology standpoint and that she should call the dialysis center to make an appointment for tomorrow. Patient was given some nausea medication for home, the instructions to call for dialysis, and encouragement to return with any worsening of her symptoms or any acute distress. - Differential Diagnosis gastroparesis, colitis, diverticulitis Critical Care Time: No Critical care attestation.: If time is entered above; I have spent that time in minutes in the direct care of this critically ill patient, excluding procedure time. ED Disposition Clinical Impression: Gastroparesis due to DM, End-stage renal disease Hypertension Qualifiers: Hypertension type: renovascular hypertension Qualified Code(s): I15.0 - Renovascular hypertension Nausea & vomiting Qualifiers: Vomiting type: unspecified Vomiting Intractability: non-intractable Qualified Code(s): R11.2 - Nausea with vomiting, unspecified Disposition: DC-01 TO HOME OR SELFCARE Is pt being admited?: No Condition: Stable Instructions: Chronic Kidney Disease (ED), Abdominal Pain (ED), Hypertension ( ED) Additional Instructions: Please follow-up with your primary care doctor in the next few days. You need to call the dialysis center today and make an appointment to see if he get dialysis done tomorrow. I have given you a referral for [place] [facility] in case you would like to follow up regarding her recurrent abdominal pains gastroparesis. Return to the emergency Department with any worsening of her symptoms or any acute distress. Prescriptions: Promethazine [Phenergan TAB] 25 mg PO Q8H PRN #10 tab PRN Reason: Nausea Referrals: ANNIE PRATT MD [Staff Physician] - 3-5 Days MAURI JOSHI DO [Staff Physician] - [facility] GAURAV TREVINO MD [Staff Physician] - [facility]
[2017-03-23] MEDS ORDERED: DILAUDID IV ONE ×3 (13:32→16:08)
--- NOTE | 2017-03-23 13:58 | Admit Criteria Form ---
Admission Criteria Documentation: SICKLE CELL DISEASE Clinical Indications for Admission to Inpatient Care (Place 'X' for any and all applicable criteria): Admission is indicated for ANY ONE of the following(1)(2)(3)(4)(5): [ ]I. Inpatient admission required rather than observation care because of ANY ONE of the following: [ ]a) Altered mental status [ ]b) High fever or infection requiring inpatient admission as indicated by ANY ONE of the following: [ ]A. Appropriate outpatient observation care antimicrobial treatment unavailable, not effective, or not appropriate for infection [ ]B. Documented bacteremia [ ]C. Temp >104.9F (40.5C) (oral) [ ]D. Temp >103.1F (oral) or <96.8F(rectal) that does not respond to all emergency treatment measures [ ]c) Supplemental O2 or respiratory therapy for over 24 h that are performable only in acute inpatient setting [ ]d) Continuous parenteral narcoticsother major pain intervention for >24 h performable only in acute inpatient setting. [ ]e) Exchange transfusion [ ]f) Other condition, treatment or monitoring requiring inpatient admission [ ]II. Acute chest syndrome indicated by ALL of the following (10): [ ]a) New alveolar infiltrate involving at least one lung segment [ ]b) Associated pulmonary symptoms or findings as indicated by ANY ONE of the following: [ ]i) Chest pain [ ]ii) Hypoxemia [ ]iii) Tachypnea/dyspnea [ ]iv) Wheezing [ ]v) Cough [ ]vi) Sputum production [ ]III. Significant hypoxemia or acidosis (more severe than baseline) [ ]IV. Emergent surgery needed (eg, acute cholecystitis) [ ]V. -related complication(11) [ ]. Splenic or hepatic sequestration(12) [ ]VII. Aplastic crisis [ ]VIII. Priapism or other vascular complication(13) [ ]IX. Traumatic hyphema [A](14) [ ]X. Underlying condition requiring hospitalization (eg, osteomyelitis) [ ]XI. Signs or symptoms of central nervous system injury indicated by ANY ONE of the following: [ ]a) Stroke(9) [ ]b) Seizure [ ]c) Other significant central nervous system symptom or event [ ]XII. Acute renal failure Extended stay beyond goal length of stay may be needed for: [ ]a) Inadequate pain control [ ]b) Acute chest syndrome [ ]c) Sequestration or aplastic crisis (12) [ ]d) Pneumonia and asthma exacerbation [ ]e) Neurologic or vascular complications (25) [ ]f) Infection (eg, osteomyelitis) that requires ongoing treatment) The original [facility] [employer] content created by [facility] has been revised. The portions of the content which have been revised are identified through the use of italic text or in bold, and [facility] has neither reviewed nor approved the modified material. All other unmodified content is copyright [facility]. Please see references footnoted in the original [facility] [employer] edition 2016
[2017-03-23] MEDS ORDERED: BENADRYL ONE (14:14)
[2017-03-23 14:20] LABS: Basophils % (Auto) 0.6 % (0.0-1.8); Eosinophils % (Auto) 0.4 % (0.0-4.3); Hematocrit 29.6 % (30.3-42.9); Hemoglobin 9.6 gm/dl (10.1-14.3); Mean Corpuscular HGB Conc 33 % (30-34); Mean Corpuscular Hemoglobin 28 pg (28-32); Mean Corpuscular Volume 85 fl (79-97); Platelet Count 240 K/mm3 (140-440); Red Blood Count 3.49 M/mm3 (3.65-5.03); Red Cell Distribution Width 17.5 % (13.2-15.2)
[2017-03-23 14:33] LABS: BUN/Creatinine Ratio 3.6; Calcium 9.5 mg/dL (8.4-10.2); Chloride 91.2 mmol/L (98-107)
[2017-03-23 14:47] LABS: Alanine Aminotransferase 6 units/L (7-56); Alkaline Phosphatase 114 units/L (35-129); Total Protein 7.9 g/dL (6.3-8.2)
[2017-03-23 14:55] LABS: Bilirubin,Direct < 0.2 mg/dL (0-0.2); Bilirubin,Indirect 0.1 mg/dL
[2017-03-23] MEDS ORDERED: BENADRYL IV ONE (15:27)
[2017-03-23 17:28] VITALS: BP 160/85
[2017-03-23] MEDS ORDERED: FLUSH HEPARIN IV ONE (17:42)
[2017-03-23] MEDS ORDERED: HEPARIN ONE (17:44)
--- NOTE | 2017-03-24 07:23 | XRay Report ---
ABDOMEN, 2 views: History: Abdominal pain. There is no evidence of free air beneath the diaphragms. The gas pattern within the abdomen is unremarkable. There is no evidence of bowel dilatation, significant air-fluid levels, or pathologic calcifications. Organ shadows are unremarkable. Cholecystectomy changes are noted. There is also coiling material in the epigastric region suggesting previous arterial embolization. Please correlate with the patient's history. IMPRESSION: Unremarkable abdomen.
== END 2017-03-23 18:00 | disposition home or self-care (01) ==
LOC: ED 11:57
DX: E11.43 Type 2 diabetes mellitus with diabetic autonomic (poly)neuropathy (principal); K31.84 Gastroparesis; I12.0 Hypertensive chronic kidney disease with stage 5 chronic kidney disease or end stage renal disease; N18.6 End stage renal disease; R11.2 Nausea with vomiting, unspecified; I15.0 Renovascular hypertension; M19.90 Unspecified osteoarthritis, unspecified site; J44.9 Chronic obstructive pulmonary disease, unspecified; I50.9 Heart failure, unspecified; Z88.6 Allergy status to analgesic agent; Z88.2 Allergy status to sulfonamides; Z88.5 Allergy status to narcotic agent
CPT/HCPCS: 36415; 74020; 80048; 80074; 83690; 84702; 84703; 85025; 96374; 96375; 96376; 99284; J0360; J1170; J1200; J1642; J1644; J2270

== ENCOUNTER 2017-04-01 13:28 | Observation (INO) | payer MEDICARE ==
[2017-04-01] MEDS ORDERED: REGLAN IV ONE (14:47)
[2017-04-01] MEDS ORDERED: HALDOL IV ONE (14:47)
[2017-04-01] MEDS ORDERED: BENADRYL IV ONE (15:18)
[2017-04-01] MEDS ORDERED: DILAUDID IV ONE (15:18)
[2017-04-01] MEDS ORDERED: ZOFRAN IV ONE (15:18)
[2017-04-01] MEDS ORDERED: ATIVAN IV ONE (15:18)
[2017-04-01 15:35] LABS: Basophils % (Auto) 0.4 % (0.0-1.8); Hemoglobin 8.2 gm/dl (10.1-14.3); Mean Corpuscular HGB Conc 33 % (30-34); Mean Corpuscular Hemoglobin 28 pg (28-32); Mean Corpuscular Volume 85 fl (79-97); Platelet Count 248 K/mm3 (140-440); Red Blood Count 2.95 M/mm3 (3.65-5.03); White Blood Count 5.7 K/mm3 (4.5-11.0)
--- NOTE | 2017-04-01 15:37 | XRay Report ---
AP CHEST :04/01/17 15:22 CLINICAL: Difficulty breathing. Endstage renal disease on hemodialysis. COMPARISON:03/02/17 FINDINGS: Stable cardiomegaly and central vascular congestion. No pulmonary consolidation or pleural effusion. A right [id number]-o-Yyxw tip is in the right atrium. The bones and soft tissues are normal. IMPRESSION: Cardiomegaly and pulmonary venous hypertension. No pulmonary edema.
[2017-04-01 15:53] LABS: Albumin 4.1 g/dL (3.9-5); Albumin/Globulin Ratio 1.1 %; BUN/Creatinine Ratio 4.26; Bilirubin,Total 0.4 mg/dL (0.1-1.2); Calcium 9.3 mg/dL (8.4-10.2); Chloride 89.2 mmol/L (98-107); Total Protein 7.7 g/dL (6.3-8.2)
[2017-04-01] MEDS ORDERED: NACL 0.9% 100 ML IV PRN (16:22)
--- NOTE | 2017-04-01 16:24 | Emergency Department Report ---
ED Abdominal Pain HPI - General Chief Complaint: Abdominal Pain Stated Complaint: MISSED DIALYSIS Time Seen by Provider: 04/01/17 15:13 Source: patient, EMS Mode of arrival: Stretcher Limitations: No Limitations - History of Present Illness Initial Comments: 36-year-old female presents to the emergency department complaining of abdominal pain, nausea, and vomiting. Patient reports sharp upper abdominal pain for the past 2 days. Pain does not radiate. Patient states that she went to [facility] this morning for this. She states that they told her she had gastritis and discharged her home. Patient missed her regularly scheduled dialysis. She continues to complain of upper abdominal pain and also states that her legs are swollen. There are no other complaints. MD Complaint: abdominal pain -: Gradual, days(s) (2) Location: epigastric Radiation: none Migration to: no migration Severity: severe Severity scale (0 -10): 10 Quality: sharp Consistency: constant Improves With: nothing Worsens With: nothing Associated Symptoms: nausea, vomiting - Related Data Previous Rx's Medication Instructions Recorded Last Taken Type Dicyclomine [Bentyl] 20 mg PO QID PRN #30 tablet 03/06/17 Unknown Rx Famotidine [Pepcid] 20 mg PO QDAY #30 tablet 03/06/17 Unknown Rx Losartan [Cozaar] 100 mg PO QDAY #30 tablet 03/06/17 Unknown Rx Metoclopramide [Reglan TAB] 10 mg PO ACHS PRN #30 tablet 03/06/17 Unknown Rx Metoprolol [Lopressor TAB] 100 mg PO TID #90 tablet 03/06/17 Unknown Rx NIFEdipine XL [Procardia Xl] 90 mg PO Q12HR #60 tablet 03/06/17 Unknown Rx Nortriptyline [Pamelor] 25 mg PO BID #60 capsule 03/06/17 Unknown Rx cloNIDine-TTS PATCH [Catapres-Tts 0.3 mg TD QWEEK #7 patch 03/06/17 Unknown Rx Patch] hydrALAZINE [Apresoline TAB] 100 mg PO TID #90 tab 03/06/17 Unknown Rx oxyCODONE [Roxicodone TAB] 10 mg PO Q8H #12 tablet 03/06/17 Unknown Rx Promethazine [Phenergan TAB] 25 mg PO Q8H PRN #10 tab 03/23/17 Unknown Rx Allergies Allergy/AdvReac Type Severity Reaction Status Date / Time acetaminophen [From Percocet] Allergy Itching Verified 04/01/17 14:43 lisinopril Allergy Shortness Verified 04/01/17 14:43 of Breath oxycodone HCl [From Percocet] Allergy Itching Verified 04/01/17 14:43 Penicillins Allergy Hives Verified 04/01/17 14:43 morphine AdvReac Anaphylaxis Verified 04/01/17 14:43 ED Review of Systems ROS: Stated complaint: MISSED DIALYSIS Other details as noted in HPI Comment: All other systems reviewed and negative Cardiovascular: edema Gastrointestinal: abdominal pain, nausea, vomiting ED Past Medical Hx - Past Medical History Previous Medical History?: Yes Hx Hypertension: Yes Hx Heart Attack/AMI: No Hx Congestive Heart Failure: Yes Hx Diabetes: Yes Hx Pulmonary Embolism: No Hx Liver Disease: No Hx Renal Disease: Yes Hx Arthritis: Yes Hx Headaches / Migraines: No Hx Seizures: No Hx Kidney Stones: No Hx Psychiatric Treatment: No Hx Asthma: Yes Hx COPD: Yes (3.5L/NC at home) Hx HIV: No Additional medical history: gastroparesis - Surgical History Past Surgical History?: Yes Hx Cholecystectomy: Yes (18 years ago) Additional Surgical History: c section, tubal ligation. fistula right arm - Family History Family history: no significant - Social History Smoking Status: Never Smoker Substance Use Type: None - Medications Home Medications: Home Medications Medication Instructions Recorded Confirmed Last Taken Type Dicyclomine [Bentyl] 20 mg PO QID PRN #30 tablet 03/06/17 Unknown Rx Famotidine [Pepcid] 20 mg PO QDAY #30 tablet 03/06/17 Unknown Rx Losartan [Cozaar] 100 mg PO QDAY #30 tablet 03/06/17 Unknown Rx Metoclopramide [Reglan TAB] 10 mg PO ACHS PRN #30 tablet 03/06/17 Unknown Rx Metoprolol [Lopressor TAB] 100 mg PO TID #90 tablet 03/06/17 Unknown Rx NIFEdipine XL [Procardia Xl] 90 mg PO Q12HR #60 tablet 03/06/17 Unknown Rx Nortriptyline [Pamelor] 25 mg PO BID #60 capsule 03/06/17 Unknown Rx cloNIDine-TTS PATCH [Catapres-Tts 0.3 mg TD QWEEK #7 patch 03/06/17 Unknown Rx Patch] hydrALAZINE [Apresoline TAB] 100 mg PO TID #90 tab 03/06/17 Unknown Rx oxyCODONE [Roxicodone TAB] 10 mg PO Q8H #12 tablet 03/06/17 Unknown Rx Promethazine [Phenergan TAB] 25 mg PO Q8H PRN #10 tab 03/23/17 Unknown Rx ED Physical Exam - General Limitations: No Limitations General appearance: alert, in distress (moderate distress secondary to pain) - Head Head exam: Present: atraumatic, normocephalic - Eye Eye exam: Present: normal appearance, PERRL, EOMI - ENT ENT exam: Present: normal exam, normal orophraynx, mucous membranes moist - Neck Neck exam: Present: normal inspection, full ROM. Absent: tenderness - Respiratory Respiratory exam: Present: normal lung sounds bilaterally. Absent: respiratory distress - Cardiovascular Cardiovascular Exam: Present: normal rhythm, tachycardia, normal heart sounds - GI/Abdominal GI/Abdominal exam: Present: soft, tenderness (moderate epigastric tenderness to palpation), normal bowel sounds. Absent: distended, guarding, rebound - Extremities Exam Extremities exam: Present: normal inspection, full ROM. Absent: tenderness - Back Exam Back exam: Present: normal inspection, full ROM. Absent: tenderness - Neurological Exam Neurological exam: Present: alert, oriented X3. Absent: motor sensory deficit - Skin Skin exam: Present: warm, dry, intact ED Course Vital Signs 04/01/17 04/01/17 04/01/17 14:36 15:14 15:38 Temperature 98.1 F 98.2 F Pulse Rate 102 H 105 H 94 H Respiratory 16 16 16 Rate Blood Pressure 188/95 Blood Pressure 176/95 164/82 [Left] O2 Sat by Pulse 100 100 100 Oximetry ED Medical Decision Making - Lab Data Result diagrams: 04/01/17 14:48 04/01/17 14:48 - Radiology Data Radiology results: report reviewed, image reviewed Chest x-ray shows no acute cardiopulmonary abnormality. - Medical Decision Making Lab and imaging results reviewed and discussed with the patient. I spoke with Dr. Dubon, nephrology. He is arranging for the patient to receive dialysis. Patient is to be admitted by the hospitalist. - Differential Diagnosis gastroparesis, volume overload, hyperkalemia, ESRD Critical care attestation.: If time is entered above; I have spent that time in minutes in the direct care of this critically ill patient, excluding procedure time. ED Disposition Clinical Impression: Gastroparesis due to DM, ESRD on hemodialysis Disposition: -09 OP ADMIT IP TO THIS HOSP Is pt being admited?: Yes Condition: Stable Instructions: Diabetes Mellitus Type 2 in Adults (ED), Abdominal Pain (ED) Referrals: PRIMARY CARE, [Primary Care Provider] - 3-5 Days Time of Disposition: 16:24
--- NOTE | 2017-04-01 16:30 | Admit Criteria Form ---
Admission Criteria Documentation: GASTROENTEROLOGY GRG Clinical Indications for Admission to Inpatient Care (Place 'X' for any and all applicable criteria): Hospital admission is needed for appropriate care of the patient because of ANY ONE of the following: [ ]I. Hemoperitoneum(7) [ ]II. Ascites requiring acute treatment indicated by ANY ONE of the following( 8)(9): [ ]a) Hemodynamic instability remaining after emergency or observation level care (as appropriate) [ ]b) Peritoneal signs present (eg, abdominal rigidity, rebound tenderness, absent bowel sounds) [ ]c) Tachypnea, Hypoxemia, or other respiratory symptoms remain after emergency or observation level care (as appropriate) [ ]d) Suspected infected ascites as indicated by ANY ONE of the following: [ ]i) Temperature greater than 100 degrees F (37.8 degrees C) [ ]ii) Abdominal pain or tenderness not relieved by paracentesis [ ]iii) Systemic signs of infection (eg, elevated WBC count, fever) [ ]iv) Ascitic fluid analysis consistent with infection ( eg, elevated WBC count): [ ]v) Vital sign abnormality [ ]III. Suspected acute intra-abdominal process indicated by ANY ONE of the following(1)(2)(3)(4)(5): [ ]a) Hemodynamic instability [ ]b) Peritoneal signs present (eg, abdominal rigidity, rebound tenderness, absent bowel sounds) [ ]c) Bowel obstruction suspected (eg, severe vomiting, abdominal distension) [ ]d) Suspected mesenteric ischemia or ischemic colitis(6) [ ]e) Other signs or symptoms of acute abdominal disease (eg, severe pain, free air): [ ]IV. Severe liver disease indicated by ANY ONE of the following(8)(9)(10)(11)( 12)(13)(14): [ ]a) Acute hepatitis (eg, transaminase level greater than 1000 IU/L) [ ]b) Acute elevation of prothrombin time to more than 50% above normal or INR greater than 1.5 [ ]c) Bilirubin greater than 20 mg/dL (342 micromoles/L) (15) [ ]d) New-onset or worsening hepatic encephalopathy [ ]e) Acute liver necrosis [ ]f) Vomiting or dehydration that is severe of persistent [ ]g) Hemodynamic instability due to liver disease [ ]h) Acute renal failure [ ]i) Hepatic abscess [ ]j) Dehydration that is severe or persistent [ ]k) Hepatic hydrothorax(21) [ ]l) Other indications of severe liver disease (eg, persistent fever , ingestion of hepatotoxin) [ ]V. Severe diarrhea indicated by ANY ONE of the following(17)(18)(19)(20)(21)( 22)(23): [ ]a) High fever or other high-risk infection situation [ ]b) Intractable bloody diarrhea (eg, more than 6 bloody stools per day) [ ]c) Suspected Clostridium difficile-associated diarrhea(24) [ ]d) Change in mental status that persists after emergency or observation level care (as appropriate) [ ]e) Severe dehydration (eg, greater than 9% loss of body weight in children) [ ]f) Inability to maintain hydration [ ]g) Peritoneal signs present (eg, abdominal rigidity, rebound tenderness, absent bowel sounds) [ ]h) Abdominal ischemia suspected(6) [ ]i) Hemodynamic instability that persists after emergency or observation level care (as appropriate) [ ]j) Severe electrolyte abnormalities requiring inpatient care [ ]k) Acute renal failure [ ]. Suspected toxic megacolon(5)(6) [ ]VII.Severe dysphagia indicated by ANY ONE of the following(25)(26): [ ]a) Suspected esophageal perforation or fistula(27) [ ]b) Suspected cause that requires inpatient care (eg, caustic ingestion, severe esophagitis) (28) [ ]c) Severe dehydration (eg, greater than 9% loss of body weight in children) [ ]d) Inability to manage secretions or maintain hydration [ ]e) Hemodynamic instability that persists after emergency or observation level care (as appropriate) [ ]f) Severe electrolyte abnormalities requiring inpatient care [ ]g) Acute renal failure [ ]VIII.Vomiting and ANY ONE of the following (29)(30)(31)(32): [ ]a) High fever or other high-risk infection situation [ ]b) Change in mental status that persists after emergency or observation level care (as appropriate) [ ]c) Severe dehydration (e.g., greater than 9% loss of body weight in children) [ ]d) Peritoneal signs present (e.g., abdominal rigidity, rebound tenderness, absent bowel sounds) [ ]e) Hemodynamic instability that persists after emergency or observation level care (as appropriate) [ ]f) Severe electrolyte abnormalities requiring inpatient care [ ]g) Acute renal failure [ ]h) Bowel obstruction suspected (e.g., severe vomiting, abdominal distension) [ ]i) Vomiting that is severe or persistent after medical treatment [ ]IX. Significant dehydration indicated by ANY ONE of the following(23)(24)(25) [ ]a) Clinical findings of severe dehydration indicated by ANY ONE of the following: [ ]i) Acute loss of weight from baseline (5% of body weight in adults, 9% in pediatric patients) [ ]ii) Hemodynamic instability [ ]iii) Acute renal failure [ ]iv) Serum sodium greater than 150 mEq/L (mmol/L) [ ]b) Dehydration that is persistent indicated by ALL of the following: [ ]i) Oral rehydration therapy not tolerated or insufficient to adequately correct dehydration [ ]ii) Appropriate intravenous treatment (eg, fluids) does not readily correct dehydration hours of (ie, after 12 to 24 of treatment) [ X]X. Gastroparesis and ANY ONE of the following(37)(38)(39): [ ]a) Dehydration that is severe or persistent [ ]b) Severe electrolyte abnormalities requiring inpatient care [X]c) Acute renal failure [ ]d) Vomiting that is severe or persistent [ ]XI. Complications of transplanted liver indicated by ANY ONE of the following (40)(41): [ ]a) Acute graft rejection requiring inpatient management (eg, intravenous immunosuppression)(42) [ ]b) Failure of transplanted liver as indicated by ANY ONE of the following: [ ]i) Acute hepatitis (eg, transaminase level greater than 1000 International Units per liter (IU/L)) [ ]ii) Acute elevation of prothrombin time to more than 50% above baseline or INR greater than 1.5 [ ]iii) Bilirubin greater than 20 mg/dL (342 micromoles/L) [ ]iv) New-onset or worsening hepatic encephalopathy [ ]v) Acute elevation of serum ammonia level (eg, greater than 210 mcg/dL (150 micromoles/L)) [ ]vi) Acute liver necrosis [ ]c) Infection requiring inpatient management (eg, Hemodynamic instability, need for intravenous antimicrobial treatment)(43)(44)(45)(46)(47)(48)(49)(50) [ ]d) Other complication of transplanted liver (eg, thrombosis, autoimmune hepatitis, variceal bleeding) requiring inpatient management(51)(52) [ ]XII Complications of transplanted pancreas indicated by ANY ONE of the following(53): [ ]a) Acute graft rejection requiring inpatient management (eg, intravenous immunosuppression)(42)(54) [ ]b) Failure of transplanted pancreas as indicated by ANY ONE of the following: [ ]i) Serum amylase greater than 3 times the upper limit of normal or baseline [ ]ii) Serum lipase greater than 3 times the upper limit of normal or baseline [ ]iii) Imaging findings consistent with pancreatic inflammation or necrosis [ ]c) Infection requiring inpatient management (eg, Hemodynamic instability, need for intravenous antimicrobial treatment)(43)(44)(45)(46)(47)(48)(49)(50) [ ]d) Other complication of transplanted liver (eg, thrombosis, autoimmune hepatitis, variceal bleeding) requiring inpatient management(51)(52) [ ]X. Gastroenterology condition and ALL of the following: [ ]a) Symptom or finding for which emergency and observation care have failed or are not considered appropriate (Also use General Criteria: Observation Care as appropriate) [ ]b) Presence of ANY ONE of the following: [ ]i) A General Admission Criteria [ ]ii) A Pediatric General Admission Criteria. The original [facility] [employer] content created by [facility] [employer] has been revised. The portions of the content which have been revised are identified through the use of italic text or in bold,and [facility] has neither reviewed nor approved the modified material. All other unmodified content is copyright [facility] [employer]. Please see references footnoted in the original [facility] edition 2016 Admission Criteria Met: Yes
[2017-04-01] MEDS ORDERED: DULCOLAX PR PRN (21:27)
[2017-04-01] MEDS ORDERED: MILK OF MAGNESIA PO PRN (21:27)
[2017-04-01] MEDS ORDERED: DILAUDID IV PRN (21:27)
[2017-04-01] MEDS ORDERED: REGLAN IV PRN (21:27)
[2017-04-01] MEDS ORDERED: TYLENOL PO PRN (21:27)
--- NOTE | 2017-04-01 21:30 | History and Physical Report ---
History of Present Illness Date of examination: 04/01/17 Date of admission: 04/01/17 16:24 Chief complaint: Abd pain for 2 days assoc with N?V x 3 Missed HD today History of present illness: COOKIE: 36-year-old female presents to the emergency department complaining of abdominal pain, nausea, and vomiting. Patient reports sharp upper abdominal pain for the past 2 days. Pain does not radiate. Patient states that she went to [facility] this morning for this. She states that they told her she had gastritis and discharged her home. Patient missed her regularly scheduled dialysis. She continues to complain of upper abdominal pain and also states that her legs are swollen. There are no other complaints. MD Complaint: abdominal pain -: Gradual, days(s) (2) Location: epigastric Radiation: none Migration to: no migration Severity: severe Severity scale (0 -10): 10 Quality: sharp Consistency: constant Improves With: nothing Worsens With: nothing Associated Symptoms: nausea, vomiting - Related Data Previous Rx's Medication Instructions Recorded Last Taken Type Dicyclomine [Bentyl] 20 mg PO QID PRN #30 tablet 03/06/17 Unknown Rx Famotidine [Pepcid] 20 mg PO QDAY #30 tablet 03/06/17 Unknown Rx Losartan [Cozaar] 100 mg PO QDAY #30 tablet 03/06/17 Unknown Rx Metoclopramide [Reglan TAB] 10 mg PO ACHS PRN #30 tablet 03/06/17 Unknown Rx Metoprolol [Lopressor TAB] 100 mg PO TID #90 tablet 03/06/17 Unknown Rx NIFEdipine XL [Procardia Xl] 90 mg PO Q12HR #60 tablet 03/06/17 Unknown Rx Nortriptyline [Pamelor] 25 mg PO BID #60 capsule 03/06/17 Unknown Rx cloNIDine-TTS PATCH [Catapres-Tts 0.3 mg TD QWEEK #7 patch 03/06/17 Unknown Rx Patch] hydrALAZINE [Apresoline TAB] 100 mg PO TID #90 tab 03/06/17 Unknown Rx oxyCODONE [Roxicodone TAB] 10 mg PO Q8H #12 tablet 03/06/17 Unknown Rx Promethazine [Phenergan TAB] 25 mg PO Q8H PRN #10 tab 03/23/17 Unknown Rx Allergies Allergy/AdvReac Type Severity Reaction Status Date / Time acetaminophen [From Percocet] Allergy Itching Verified 04/01/17 14:43 lisinopril Allergy Shortness Verified 04/01/17 14:43 of Breath oxycodone HCl [From Percocet] Allergy Itching Verified 04/01/17 14:43 Penicillins Allergy Hives Verified 04/01/17 14:43 morphine AdvReac Anaphylaxis Verified 04/01/17 14:43 ED Review of Systems ROS: Stated complaint: MISSED DIALYSIS Other details as noted in HPI Comment: All other systems reviewed and negative Cardiovascular: edema Gastrointestinal: abdominal pain, nausea, vomiting ED Past Medical Hx - Past Medical History Previous Medical History?: Yes Hx Hypertension: Yes Hx Heart Attack/AMI: No Hx Congestive Heart Failure: Yes Hx Diabetes: Yes Hx Pulmonary Embolism: No Hx Liver Disease: No Hx Renal Disease: Yes Hx Arthritis: Yes Hx Headaches / Migraines: No Hx Seizures: No Hx Kidney Stones: No Hx Psychiatric Treatment: No Hx Asthma: Yes Hx COPD: Yes (3.5L/NC at home) Hx HIV: No Additional medical history: gastroparesis - Surgical History Past Surgical History?: Yes Hx Cholecystectomy: Yes (18 years ago) Additional Surgical History: c section, tubal ligation. fistula right arm - Family History Family history: no significant - Social History Smoking Status: Never Smoker Substance Use Type: None - Medications Home Medications: Home Medications Medication Instructions Recorded Confirmed Last Taken Type Dicyclomine [Bentyl] 20 mg PO QID PRN #30 tablet 03/06/17 Unknown Rx Famotidine [Pepcid] 20 mg PO QDAY #30 tablet 03/06/17 Unknown Rx Losartan [Cozaar] 100 mg PO QDAY #30 tablet 03/06/17 Unknown Rx Metoclopramide [Reglan TAB] 10 mg PO ACHS PRN #30 tablet 03/06/17 Unknown Rx Metoprolol [Lopressor TAB] 100 mg PO TID #90 tablet 03/06/17 Unknown Rx NIFEdipine XL [Procardia Xl] 90 mg PO Q12HR #60 tablet 03/06/17 Unknown Rx Nortriptyline [Pamelor] 25 mg PO BID #60 capsule 03/06/17 Unknown Rx cloNIDine-TTS PATCH [Catapres-Tts 0.3 mg TD QWEEK #7 patch 03/06/17 Unknown Rx Patch] hydrALAZINE [Apresoline TAB] 100 mg PO TID #90 tab 03/06/17 Unknown Rx oxyCODONE [Roxicodone TAB] 10 mg PO Q8H #12 tablet 03/06/17 Unknown Rx Promethazine [Phenergan TAB] 25 mg PO Q8H PRN #10 tab 03/23/17 Unknown Rx Past History Past Medical History: ESRD, hypertension, other (Gastroparesis) Medications and Allergies Allergies Allergy/AdvReac Type Severity Reaction Status Date / Time acetaminophen [From Percocet] Allergy Itching Verified 04/01/17 14:43 lisinopril Allergy Shortness Verified 04/01/17 14:43 of Breath oxycodone HCl [From Percocet] Allergy Itching Verified 04/01/17 14:43 Penicillins Allergy Hives Verified 04/01/17 14:43 morphine AdvReac Anaphylaxis Verified 04/01/17 14:43 Home Medications Medication Instructions Recorded Confirmed Last Taken Type Dicyclomine [Bentyl] 20 mg PO QID PRN #30 tablet 03/06/17 Unknown Rx Famotidine [Pepcid] 20 mg PO QDAY #30 tablet 03/06/17 Unknown Rx Losartan [Cozaar] 100 mg PO QDAY #30 tablet 03/06/17 Unknown Rx Metoclopramide [Reglan TAB] 10 mg PO ACHS PRN #30 tablet 03/06/17 Unknown Rx Metoprolol [Lopressor TAB] 100 mg PO TID #90 tablet 03/06/17 Unknown Rx NIFEdipine XL [Procardia Xl] 90 mg PO Q12HR #60 tablet 03/06/17 Unknown Rx Nortriptyline [Pamelor] 25 mg PO BID #60 capsule 03/06/17 Unknown Rx cloNIDine-TTS PATCH [Catapres-Tts 0.3 mg TD QWEEK #7 patch 03/06/17 Unknown Rx Patch] hydrALAZINE [Apresoline TAB] 100 mg PO TID #90 tab 03/06/17 Unknown Rx oxyCODONE [Roxicodone TAB] 10 mg PO Q8H #12 tablet 03/06/17 Unknown Rx Promethazine [Phenergan TAB] 25 mg PO Q8H PRN #10 tab 03/23/17 Unknown Rx Active Meds: Active Medications Acetaminophen (Tylenol) 650 mg PO Q4H PRN PRN Reason: Pain MILD(1-3)/Fever >100.5/CRUZ Bisacodyl (Dulcolax) 10 mg DC QDAY PRN PRN Reason: Constipation unrelieved by MOM Hydromorphone HCl (Dilaudid) 0.5 mg IV Q3H PRN PRN Reason: Pain , Severe (7-10) Sodium Chloride (Nacl 0.9%) 100 mls @ 999 mls/hr IV CELENA PRN PRN Reason: Hypotension Magnesium Hydroxide (Milk Of Magnesia) 30 ml PO Q4H PRN PRN Reason: Constipation Metoclopramide HCl (Reglan) 10 mg IV Q6H PRN PRN Reason: Nausea And Vomiting Ondansetron HCl (Zofran) 4 mg IV Q3H PRN PRN Reason: N/V unrelieved by Reglan Oxycodone/Acetaminophen (Percocet 5/325) 1 tab PO Q6H PRN PRN Reason: Pain, Moderate (4-6) Review of Systems All systems: negative Constitutional: no weight loss, no weight gain, no fever, no chills, no sweats, no night sweats Ears, nose, mouth and throat: no nasal congestion, no nasal discharge, no sinus pressure, no sinus pain, no dysphagia, no hoarseness, no sore throat Breasts: deferred Cardiovascular: no chest pain, no orthopnea, no palpitations, no rapid/ irregular heart beat, no edema, no syncope, no lightheadedness, no shortness of breath Respiratory: no cough, no cough with sputum, no excessive sputum, no shortness of breath, no dyspnea on exertion Gastrointestinal: abdominal pain, nausea, vomiting, no diarrhea, no constipation , no change in bowel habits, no hematemesis, no coffee ground emesis Genitourinary Female: no dysuria, no urinary frequency, no urgency Menstruation: currently menstrual Rectal: pain Musculoskeletal: no neck stiffness, no neck pain, no shooting arm pain, no arm numbness/tingling, no low back pain Integumentary: no rash, no pruritis, no redness, no sores, no wounds, no jaundice Neurological: no head injury, no transient paralysis, no seizures, no syncope, no aphasia, no change in speech, no change in mentation Psychiatric: no anxiety, no memory loss, no change in sleep habits, no sleep disturbances Endocrine: no cold intolerance, no heat intolerance, no polyphagia, no excessive thirst, no polydipsia, no polyuria, no nocturia, no excessive sweating , no flushing, no weight change Hematologic/Lymphatic: no easy bruising, no easy bleeding Allergic/Immunologic: no urticaria, no allergic rhinitis, no wheezing Exam - Physical Exam Narrative exam: In slight distress sec to pain in abdomen - Constitutional Vitals: Temp Pulse Resp BP Pulse Ox 98.2 F 87 16 157/79 100 04/01/17 18:27 04/01/17 18:27 04/01/17 18:27 04/01/17 18:27 04/01/17 18:27 General appearance: Present: no acute distress, well-nourished - EENT Eyes: Present: PERRL ENT: hearing intact, clear oral mucosa - Neck Neck: Present: supple, normal ROM - Respiratory Respiratory effort: normal Respiratory: bilateral: CTA - Cardiovascular Heart rate: 76 Rhythm: regular Heart Sounds: Present: S1 & S2. Absent: rub, click - Extremities Extremities: pulses symmetrical, No edema Peripheral Pulses: within normal limits - Abdominal General gastrointestinal: Present: soft, non-tender, non-distended, normal bowel sounds Female genitourinary: Present: normal - Integumentary Integumentary: Present: clear, warm, dry - Musculoskeletal Musculoskeletal: gait normal, strength equal bilaterally - Psychiatric Psychiatric: appropriate mood/affect, intact judgment & insight - Neurologic Neurologic: CNII-XII intact, moves all extremities, gait normal - Allied Health Allied health notes reviewed: nursing Results - Labs CBC & Chem 7: 04/01/17 14:48 04/01/17 14:48 Labs: Laboratory Last Values WBC 5.7 K/mm3 (4.5-11.0) 04/01/17 14:48 RBC 2.95 M/mm3 (3.65-5.03) L 04/01/17 14:48 Hgb 8.2 gm/dl (10.1-14.3) L 04/01/17 14:48 Hct 25.0 % (30.3-42.9) L 04/01/17 14:48 MCV 85 fl (79-97) 04/01/17 14:48 MCH 28 pg (28-32) 04/01/17 14:48 MCHC 33 % (30-34) 04/01/17 14:48 RDW 18.0 % (13.2-15.2) H 04/01/17 14:48 Plt Count 248 K/mm3 (140-440) 04/01/17 14:48 Lymph % (Auto) 11.8 % (13.4-35.0) L 04/01/17 14:48 Lander % (Auto) 9.5 % (0.0-7.3) H 04/01/17 14:48 Eos % (Auto) 0.0 % (0.0-4.3) 04/01/17 14:48 Baso % (Auto) 0.4 % (0.0-1.8) 04/01/17 14:48 Lymph # 0.7 K/mm3 (1.2-5.4) L 04/01/17 14:48 Lander # 0.5 K/mm3 (0.0-0.8) 04/01/17 14:48 Eos # 0.0 K/mm3 (0.0-0.4) 04/01/17 14:48 Baso # 0.0 K/mm3 (0.0-0.1) 04/01/17 14:48 Seg Neutrophils % 78.3 % (40.0-70.0) H 04/01/17 14:48 Seg Neutrophils # 4.4 K/mm3 (1.8-7.7) 04/01/17 14:48 Sodium 133 mmol/L (137-145) L 04/01/17 14:48 Potassium 4.0 mmol/L (3.6-5.0) 04/01/17 14:48 Chloride 89.2 mmol/L (98-107) L 04/01/17 14:48 Carbon Dioxide 27 mmol/L (22-30) 04/01/17 14:48 Anion Gap 21 mmol/L 04/01/17 14:48 BUN 32 mg/dL (7-17) H 04/01/17 14:48 Creatinine 7.5 mg/dL (0.7-1.2) H 04/01/17 14:48 Estimated GFR 7 ml/min 04/01/17 14:48 BUN/Creatinine Ratio 4.26 % 04/01/17 14:48 Glucose 144 mg/dL (65-100) H 04/01/17 14:48 Calcium 9.3 mg/dL (8.4-10.2) 04/01/17 14:48 Total Bilirubin 0.40 mg/dL (0.1-1.2) 04/01/17 14:48 AST 17 units/L (5-40) 04/01/17 14:48 ALT 9 units/L (7-56) 04/01/17 14:48 Alkaline Phosphatase 114 units/L (35-129) 04/01/17 14:48 Total Protein 7.7 g/dL (6.3-8.2) 04/01/17 14:48 Albumin 4.1 g/dL (3.9-5) 04/01/17 14:48 Albumin/Globulin Ratio 1.1 % 04/01/17 14:48 Lipase 110 units/L (13-60) H 04/01/17 14:48 Short CBC 04/01/17 Range/Units 14:48 WBC 5.7 (4.5-11.0) K/mm3 Hgb 8.2 L (10.1-14.3) gm/dl Hct 25.0 L (30.3-42.9) % Plt Count 248 (140-440) K/mm3 BMP 04/01/17 14:48 Sodium 133 L Potassium 4.0 Chloride 89.2 L Carbon Dioxide 27 BUN 32 H Creatinine 7.5 H Glucose 144 H Calcium 9.3 Liver Function 04/01/17 Range/Units 14:48 Total Bilirubin 0.40 (0.1-1.2) mg/dL AST 17 (5-40) units/L ALT 9 (7-56) units/L Alkaline Phosphatase 114 (35-129) units/L Albumin 4.1 (3.9-5) g/dL Assessment and Plan Advance Directives: Yes (Full code) VTE prophylaxis?: Chemical Plan of care discussed with patient/family: Yes - Patient Problems (1) Gastroparesis Current Visit: Yes Status: Acute Plan to address problem: Patient initiated on Reglan and Zofran Gastric emptying study not ordered. Cont HD Cont PPI's (2) Accelerated hypertension Current Visit: No Status: Acute Plan to address problem: Cont Losartan Metoprolol Nifedipine clonidine and Hydralazine.Hydrazine 10 mg IVP q3 prn if DBP more than 100 mm Hg. (3) ESRD on hemodialysis Current Visit: Yes Status: Chronic Plan to address problem: Comt HD on reg basis. Nephrology consulted (4) Acute abdominal pain Current Visit: No Status: Acute Plan to address problem: Symptomatic Treatment (5) Anemia Current Visit: Yes Status: Chronic Qualifiers: Anemia type: A Iron deficiency anemia type: I Vitamin B12 deficiency anemia type: V Folate deficiency anemia type: F Bone marrow failure anemia type: B Hemolytic anemia type: H Chronic kidney disease stage: on chronic dialysis Qualified Code(s): N18.6 - End stage renal disease; D63.1 - Anemia in chronic kidney disease; Z99.2 - Dependence on renal dialysis Plan to address problem: Transfuse if below 7.5 Hb Cont Epogen (6) DVT prophylaxis Current Visit: No Status: Acute Plan to address problem: on sq Heparin (7) T2DM (type 2 diabetes mellitus) Current Visit: Yes Status: Acute Qualifiers: Diabetes mellitus complication status: D Diabetes mellitus complication detail: D Diabetic retinopathy severity: D Proliferative retinopathy type: P Diabetes mellitus macular edema: D Diabetes mellitus penitentiary insulin use : D Laterality: L Chronic kidney disease stage: C (8) T2DM (type 2 diabetes mellitus) Current Visit: Yes Status: Chronic Qualifiers: Diabetes mellitus complication status: without complication Diabetes mellitus complication detail: D Diabetic retinopathy severity: D Proliferative retinopathy type: P Diabetes mellitus macular edema: D Diabetes mellitus keno terminal operator insulin use: without keno terminal operator use Laterality: L Chronic kidney disease stage: C Qualified Code(s): E11.9 - Type 2 diabetes mellitus without complications Plan to address problem: Not on any medicines. Initiate insulin/oral hypoglycemics depending on her BG readings. Will defer to Team 1.
[2017-04-01] MEDS ORDERED: NACL 0.9 (PRIMING MACHINE ONLY DIALYSIS) MC ONE (22:27)
[2017-04-01] MEDS: ZOFRAN IV PRN (23:00)
[2017-04-02] MEDS ORDERED: ATIVAN IV ONE (00:36)
[2017-04-02] MEDS ORDERED: BENADRYL PO PRN (00:37)
[2017-04-02] MEDS ORDERED: BENTYL PO PRN (06:36)
[2017-04-02] MEDS ORDERED: PHENERGAN PO PRN (06:36)
[2017-04-02] MEDS ORDERED: REGLAN PO PRN (06:36)
[2017-04-02] MEDS: LOPRESSOR PO SCH ×2 (07:00→20:41)
[2017-04-02] MEDS: ROXICODONE PO SCH ×2 (07:00→16:36)
[2017-04-02] MEDS: PROCARDIA XL PO SCH (07:00)
[2017-04-02 07:26] LABS: Albumin/Globulin Ratio 1.2 %; BUN/Creatinine Ratio 3.21; Bilirubin,Total 0.3 mg/dL (0.1-1.2); Calcium 8.9 mg/dL (8.4-10.2); Chloride 94.8 mmol/L (98-107); Total Protein 7.4 g/dL (6.3-8.2)
[2017-04-02 07:34] LABS: Basophils % (Auto) 0.7 % (0.0-1.8); Eosinophils % (Auto) 0.6 % (0.0-4.3); Hematocrit 30.3 % (30.3-42.9); Hemoglobin 9.8 gm/dl (10.1-14.3); Mean Corpuscular HGB Conc 32 % (30-34); Mean Corpuscular Hemoglobin 28 pg (28-32); Mean Corpuscular Volume 86 fl (79-97); Platelet Count 232 K/mm3 (140-440); Red Blood Count 3.53 M/mm3 (3.65-5.03); Red Cell Distribution Width 17.8 % (13.2-15.2); White Blood Count 5.3 K/mm3 (4.5-11.0)
[2017-04-02] MEDS ORDERED: LOPRESSOR PO SCH (08:00)
[2017-04-02] MEDS: NOVOLOG SUB-Q SCH ×4 (08:30→22:05)
--- NOTE | 2017-04-02 09:12 | Progress Note ---
Assessment and Plan Assessment and plan: 36-year-old female presents to the emergency department complaining of abdominal pain, nausea, and vomiting. Patient reports sharp upper abdominal pain for the past 2 days. Pain does not radiate. Patient states that she went to [facility] this morning for this. She states that they told her she had gastritis and discharged her home. Patient missed her regularly scheduled dialysis. She continues to complain of upper abdominal pain and also states that her legs are swollen. There are no other complaints. - Patient Problems (1) Gastroparesis Current Visit: Yes Status: Acute Plan to address problem: Patient initiated on Reglan and Zofran Gastric emptying study not ordered. Cont HD Cont PPI's (2) Accelerated hypertension Current Visit: No Status: Acute Plan to address problem: Cont Losartan Metoprolol Nifedipine clonidine and Hydralazine.Hydrazine 10 mg IVP q3 prn if DBP more than 100 mm Hg. (3) ESRD on hemodialysis Current Visit: Yes Status: Chronic Plan to address problem: Comt HD on reg basis. Nephrology consulted (4) Acute abdominal pain Current Visit: No Status: Acute Plan to address problem: Symptomatic Treatment Recurrent and chronic. Multiple admission for the same. Discontinue opioids. Repeat lipase-normal obtain xray abdomen r/O pancreatitis (5) Anemia Current Visit: Yes Status: Chronic Qualifiers: Anemia type: A Iron deficiency anemia type: I Vitamin B12 deficiency anemia type: V Folate deficiency anemia type: F Bone marrow failure anemia type: B Hemolytic anemia type: H Chronic kidney disease stage: on chronic dialysis Qualified Code(s): N18.6 - End stage renal disease; D63.1 - Anemia in chronic kidney disease; Z99.2 - Dependence on renal dialysis Plan to address problem: Transfuse if below 7.5 Hb Cont Epogen (6) DVT prophylaxis Current Visit: No Status: Acute Plan to address problem: on sq Heparin (7) T2DM (type 2 diabetes mellitus) Current Visit: Yes Status: Chronic Qualifiers: Diabetes mellitus complication status: without complication Diabetes mellitus complication detail: D Diabetic retinopathy severity: D Proliferative retinopathy type: P Diabetes mellitus macular edema: D Diabetes mellitus retirement insulin use: without retirement use Laterality: L Chronic kidney disease stage: C Qualified Code(s): E11.9 - Type 2 diabetes mellitus without complications Plan to address problem: Not on any medicines. Initiate insulin/oral hypoglycemics depending on her BG readings. LAST NOTED A1C 6.0- Pre-diabetic. Considering recurrent abdominal pain and non compliance, will not initiate any metoformin or glipized at this time. recommend close follow up with PCP. Anticipate discharge in am. Patient needs to follow with outpatient pain managment and should consider Pain pump if no other management is attainable. History Interval history: Patient seen and examined this morning continues to complain of abdominal pain and recurrent not changed from previous admissions. She reports periods of relief. She is demanded her pain medications with Ativan and Benadryl. No other adverse event reported. Hospitalist Physical - Physical exam Narrative exam: VITAL SIGNS: Reviewed. GENERAL: The patient appeared well nourished and normally developed. Vital signs as documented. HEAD: No signs of head trauma. EYES: Pupils are equal. Extraocular motions intact. EARS: Hearing grossly intact. MOUTH: Oropharynx is normal. NECK: No adenopathy, no JVD. CHEST: Chest with clear breath sounds bilaterally. No wheezes, rales, or rhonchi. CARDIAC: Regular rate and rhythm. S1 and S2, without murmurs, gallops, or rubs. VASCULAR: No Edema. Peripheral pulses normal and equal in all extremities. ABDOMEN: Soft, tender. No sign of distention. No rebound or guarding, and no masses palpated. Bowel Sounds normal. MUSCULOSKELETAL: Good range of motion of all major joints. Extremities without clubbing, cyanosis or edema. NEUROLOGIC EXAM: Alert and oriented x 3. No focal sensory or strength deficits. Speech normal. Follows commands. PSYCHIATRIC: Mood emotional and anxious SKIN: No rash or lesions. - Constitutional Vitals: Temp Pulse Resp BP Pulse Ox 98.7 F 76 20 191/91 95 04/02/17 08:00 04/02/17 08:00 04/02/17 08:00 04/02/17 08:00 04/01/17 23:00 General appearance: Present: no acute distress, well-nourished Results - Labs CBC & Chem 7: 04/02/17 06:54 04/02/17 06:54 Labs: Laboratory Last Values WBC 5.3 K/mm3 (4.5-11.0) 04/02/17 06:54 RBC 3.53 M/mm3 (3.65-5.03) L 04/02/17 06:54 Hgb 9.8 gm/dl (10.1-14.3) L 04/02/17 06:54 Hct 30.3 % (30.3-42.9) 04/02/17 06:54 MCV 86 fl (79-97) 04/02/17 06:54 MCH 28 pg (28-32) 04/02/17 06:54 MCHC 32 % (30-34) 04/02/17 06:54 RDW 17.8 % (13.2-15.2) H 04/02/17 06:54 Plt Count 232 K/mm3 (140-440) 04/02/17 06:54 Lymph % (Auto) 14.4 % (13.4-35.0) 04/02/17 06:54 [place] % (Auto) 9.3 % (0.0-7.3) H 04/02/17 06:54 Eos % (Auto) 0.6 % (0.0-4.3) 04/02/17 06:54 Baso % (Auto) 0.7 % (0.0-1.8) 04/02/17 06:54 Lymph # 0.8 K/mm3 (1.2-5.4) L 04/02/17 06:54 [place] # 0.5 K/mm3 (0.0-0.8) 04/02/17 06:54 Eos # 0.0 K/mm3 (0.0-0.4) 04/02/17 06:54 Baso # 0.0 K/mm3 (0.0-0.1) 04/02/17 06:54 Seg Neutrophils % 75.0 % (40.0-70.0) H 04/02/17 06:54 Seg Neutrophils # 4.0 K/mm3 (1.8-7.7) 04/02/17 06:54 Sodium 136 mmol/L (137-145) L 04/02/17 06:54 Potassium 4.0 mmol/L (3.6-5.0) 04/02/17 06:54 Chloride 94.8 mmol/L (98-107) L 04/02/17 06:54 Carbon Dioxide 28 mmol/L (22-30) 04/02/17 06:54 Anion Gap 17 mmol/L 04/02/17 06:54 BUN 18 mg/dL (7-17) H 04/02/17 06:54 Creatinine 5.6 mg/dL (0.7-1.2) H 04/02/17 06:54 Estimated GFR 10 ml/min 04/02/17 06:54 BUN/Creatinine Ratio 3.21 % 04/02/17 06:54 Glucose 118 mg/dL (65-100) H 04/02/17 06:54 Calcium 8.9 mg/dL (8.4-10.2) 04/02/17 06:54 Total Bilirubin 0.30 mg/dL (0.1-1.2) 04/02/17 06:54 AST 12 units/L (5-40) 04/02/17 06:54 ALT 9 units/L (7-56) 04/02/17 06:54 Alkaline Phosphatase 108 units/L (35-129) 04/02/17 06:54 Total Protein 7.4 g/dL (6.3-8.2) 04/02/17 06:54 Albumin 4.0 g/dL (3.9-5) 04/02/17 06:54 Albumin/Globulin Ratio 1.2 % 04/02/17 06:54 Lipase 110 units/L (13-60) H 04/01/17 14:48 - Imaging and Cardiology Abdominal x-ray: pending
[2017-04-02] MEDS ORDERED: PROCARDIA XL PO SCH (10:00)
--- NOTE | 2017-04-02 10:03 | XRay Report ---
KUB: 04/02/17 09:10:00 CLINICAL: Abdominal pain. Chronic pancreatitis. COMPARISON: 03/23/17 FINDINGS: Normal bowel gas pattern with moderate time of stool throughout the colon. Haziness of the abdomen suggests possible ascites. Surgical clips and sutures in the right upper quadrant. Status post bilateral tubal blood ration. Right pelvic phlebolith. No mass or suspicious calcifications. No pancreatic calcifications are identified. Right hip nails. IMPRESSION: Possible ascites. No signs of chronic calcific pancreatitis.
[2017-04-02] MEDS: APRESOLINE PO SCH ×3 (11:20→20:42)
[2017-04-02] MEDS: COZAAR PO SCH (11:20)
[2017-04-02] MEDS: PERCOCET 5/325 PO PRN (11:21)
[2017-04-02] MEDS: PAMELOR PO SCH ×2 (11:21→21:49)
[2017-04-02] MEDS: PEPCID PO SCH (11:21)
[2017-04-02] MEDS: CATAPRES-TTS PATCH TD SCH ×2 (11:23→16:37)
[2017-04-02] MEDS ORDERED: NACL 0.9 (PRIMING MACHINE ONLY DIALYSIS) MC ONE (11:49)
--- NOTE | 2017-04-02 12:04 | Consultation ---
History of Present Illness - Reason for Consult Consult date: 04/02/17 end stage renal disease, accelerated hypertension Requesting physician: HEYDI SAVAGE - History of Present Illness 86-year-old lady who is well known to me with a history of diabetes mellitus, hypertension, complicated by end-stage renal disease on hemodialysis on a Tuesday schedule at [facility] dialysis. She also has a history of diabetic gastroparesis and has had numerous hospitalizations on account of exacerbations which are usually associated with accelerated hypertension and volume overload. She was just d/charli from [facility] 2-3 days back. She now presents with generalized abdominal pain with no known aggravating factors and relieved by pain medications. Pain is 10 over 10 and is associated with nausea and vomiting. We are consulted to assist in managing her ESRD and hypertension. She has AVF for dialysis. Pt received dialysis overnight in the hospital. Past History Past Medical History: diabetes, heart failure, hypertension, hyperlipidemia, renal failure Past Surgical History: cholecystectomy, , Other (right arm AV fistula, bilateral tubal ligation, retinal laser photocoagulation therapy, permacath placement) Social history: lives with family (3 children. 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 denies: smoking, alcohol abuse, prescription drug abuse, IV drug use Family history: CAD (Father of myocardial infarction age 56), cancer ( mother had lung cancer but is still alive.), diabetes (both parents), hypertension (Both parents) Medications and Allergies Allergies Allergy/AdvReac Type Severity Reaction Status Date / Time acetaminophen [From Percocet] Allergy Itching Verified 04/01/17 14:43 lisinopril Allergy Shortness Verified 04/01/17 14:43 of Breath oxycodone HCl [From Percocet] Allergy Itching Verified 04/01/17 14:43 Penicillins Allergy Hives Verified 04/01/17 14:43 morphine AdvReac Anaphylaxis Verified 04/01/17 14:43 Home Medications Medication Instructions Recorded Confirmed Last Taken Type Dicyclomine [Bentyl] 20 mg PO QID PRN #30 tablet 03/06/17 Unknown Rx Famotidine [Pepcid] 20 mg PO QDAY #30 tablet 03/06/17 Unknown Rx Losartan [Cozaar] 100 mg PO QDAY #30 tablet 03/06/17 Unknown Rx Metoclopramide [Reglan TAB] 10 mg PO ACHS PRN #30 tablet 03/06/17 Unknown Rx Metoprolol [Lopressor TAB] 100 mg PO TID #90 tablet 03/06/17 Unknown Rx NIFEdipine XL [Procardia Xl] 90 mg PO Q12HR #60 tablet 03/06/17 Unknown Rx Nortriptyline [Pamelor] 25 mg PO BID #60 capsule 03/06/17 Unknown Rx cloNIDine-TTS PATCH [Catapres-Tts 0.3 mg TD QWEEK #7 patch 03/06/17 Unknown Rx Patch] hydrALAZINE [Apresoline TAB] 100 mg PO TID #90 tab 03/06/17 Unknown Rx oxyCODONE [Roxicodone TAB] 10 mg PO Q8H #12 tablet 03/06/17 Unknown Rx Promethazine [Phenergan TAB] 25 mg PO Q8H PRN #10 tab 03/23/17 Unknown Rx Active Meds: Active Medications Acetaminophen (Tylenol) 650 mg PO Q4H PRN PRN Reason: Pain MILD(1-3)/Fever >100.5/CRUZ Last Admin: 04/02/17 00:01 Dose: 650 mg Bisacodyl (Dulcolax) 10 mg WA QDAY PRN PRN Reason: Constipation unrelieved by MOM Clonidine HCl (Catapres-Tts Patch) 0.3 mg TD Sa [facility] Dicyclomine HCl (Bentyl) 20 mg PO QID PRN PRN Reason: ABDOMINAL PAIN Diphenhydramine HCl (Benadryl) 25 mg PO QHS PRN PRN Reason: Sleep Last Admin: 04/02/17 00:25 Dose: 25 mg Diphenhydramine HCl (Benadryl) 25 mg IV Q6H PRN PRN Reason: Itching Famotidine (Pepcid) 20 mg PO QDAY [facility] Last Admin: 04/02/17 11:21 Dose: 20 mg Hydralazine HCl (Apresoline) 100 mg PO TID [facility] Last Admin: 04/02/17 11:20 Dose: 100 mg Hydralazine HCl (Apresoline) 20 mg IV Q4H PRN PRN Reason: Hypertension,sbp >160 Hydromorphone HCl (Dilaudid) 0.25 mg IV Q4H PRN PRN Reason: Pain, Moderate (4-6) Sodium Chloride (Nacl 0.9%) 100 mls @ 999 mls/hr IV CELENA PRN PRN Reason: Hypotension Insulin Aspart (Novolog) 0 units SUB-Q ACHS GABRIELLA PRN Reason: Protocol Last Admin: 04/02/17 08:30 Dose: Not Given Losartan Potassium (Cozaar) 100 mg PO QDAY [facility] Last Admin: 04/02/17 11:20 Dose: 100 mg Magnesium Hydroxide (Milk Of Magnesia) 30 ml PO Q4H PRN PRN Reason: Constipation Metoclopramide HCl (Reglan) 5 mg IV Q6H PRN PRN Reason: Nausea And Vomiting Metoclopramide HCl (Reglan) 2.5 mg PO ACHS PRN PRN Reason: nausea or vomiting Metoprolol Tartrate (Lopressor) 100 mg PO Q12H [facility] Last Admin: 04/02/17 07:00 Dose: 100 mg Nifedipine (Procardia Xl) 90 mg PO Q24H [facility] Last Admin: 04/02/17 07:00 Dose: 90 mg Nortriptyline HCl (Pamelor) 25 mg PO BID [facility] Last Admin: 04/02/17 11:21 Dose: 25 mg Ondansetron HCl (Zofran) 4 mg IV Q3H PRN PRN Reason: N/V unrelieved by Reglan Last Admin: 04/01/17 23:00 Dose: 4 mg Oxycodone HCl (Roxicodone) 10 mg PO Q8H [facility] Last Admin: 04/02/17 07:00 Dose: 10 mg Oxycodone/Acetaminophen (Percocet 5/325) 1 tab PO Q6H PRN PRN Reason: Pain, Moderate (4-6) Last Admin: 04/02/17 11:21 Dose: 1 tab Promethazine HCl (Phenergan) 25 mg PO Q8H PRN PRN Reason: Nausea Review of Systems All systems: negative Constitutional: anorexia, fatigue Ears, nose, mouth and throat: no decreased hearing, no nose pain, no nasal congestion Cardiovascular: no chest pain, no orthopnea, no palpitations Respiratory: no hemoptysis, no shortness of breath Gastrointestinal: abdominal pain, nausea, vomiting Genitourinary Female: no dysmenorrhea, no flank pain Musculoskeletal: no neck pain, no low back pain Integumentary: no rash, no pruritis Neurological: no paralysis, no weakness, no parathesias, no seizures Psychiatric: no anxiety, no memory loss Endocrine: no cold intolerance, no heat intolerance Hematologic/Lymphatic: no easy bruising, no easy bleeding Exam - Vital Signs Vital signs: Vital Signs Temp Pulse Resp BP Pulse Ox 98.1 F 102 H 16 188/95 100 04/01/17 14:36 04/01/17 14:36 04/01/17 14:36 04/01/17 14:36 04/01/17 14:36 - Physical Exam Narrative exam: Young -Serbian female lying in bed in no acute distress HEENT normocephalic atraumatic, pupils equal reactive to light, pink, clear oropharynx Neck supple, no thyromegaly no jugular venous distention CVS: S1-S2 regular rate rhythm without murmur, rub or gallop Chest: Clear to auscultation, no wheezing Abdomen: Soft nondistended, diffuse tenderness, no organomegaly no bruit bowel sounds present Extremities trace edema, no cyanosis or clubbing, AVF LUE with +thrill Genitourinary deferred Neuro awake, alert oriented x3 no gross deficit Results - Lab Results 04/02/17 06:54 04/02/17 06:54 Most recent lab results Calcium 8.9 mg/dL (8.4-10.2) 04/02/17 06:54 Assessment and Plan (1) End stage renal disease on dialysis Current Visit: Yes Status: Chronic Plan to address problem: HD on MWF schedule (2) Accelerated hypertension Current Visit: No Status: Acute Plan to address problem: Accelerated hypertension secondary to intolerance of oral medications fluid overload. Resumed her oral antihypertensive, clonidine path. May use hydralazine PRN for SBP>160 (3) Anemia in chronic kidney disease Current Visit: Yes Status: Acute Plan to address problem: Give erythropoietin on dialysis (4) Gastroparesis due to DM Current Visit: No Status: Acute Plan to address problem: Antiemetics. Continue management by primary attending
[2017-04-02] MEDS: DILAUDID IV PRN ×2 (13:02→21:49)
[2017-04-02] MEDS: BENADRYL IV PRN ×2 (13:06→20:40)
[2017-04-02] MEDS: ATIVAN IV PRN (23:47)
[2017-04-02] MEDS: ZOFRAN IV PRN (23:47)
[2017-04-03] MEDS: APRESOLINE IV PRN ×2 (01:41→05:06)
[2017-04-03] MEDS: DILAUDID IV PRN ×2 (01:41→06:44)
[2017-04-03] MEDS ORDERED: APRESOLINE IV ONE (02:36)
[2017-04-03] MEDS ORDERED: NITRO-BID 2% TP ONE (02:37)
[2017-04-03] MEDS: ZOFRAN IV PRN ×3 (02:44→13:30)
[2017-04-03] MEDS: ROXICODONE PO SCH ×2 (03:43→08:01)
[2017-04-03] MEDS: BENADRYL IV PRN (06:44)
--- NOTE | 2017-04-03 06:46 | Discharge Summary ---
Providers - Providers Date of Admission: 04/01/17 16:24 Date of discharge: 04/03/17 Attending physician: HEYDI SAVAGE MD Primary care physician: FISHER SCALLOP Hospitalization Reason for admission: ABDOMINAL PAIN Condition: Stable Hospital course: 36-year-old female presents to the emergency department complaining of abdominal pain, nausea, and vomiting. Patient reports sharp upper abdominal pain for the past 2 days. Pain does not radiate. Patient states that she went to [facility] this morning for this. She states that they told her she had gastritis and discharged her home. Patient missed her regularly scheduled dialysis. She continues to complain of upper abdominal pain and also states that her legs are swollen. There are no other complaints. Unfortunately patient has had multiple admissions due to the same reason. As evidenced by her noncompliance of medication even the hospital she refused the clonidine patch for no apparent reason. This resulted in her blood pressure being very agitated. She is very focused on IV pain medication asking for 1 mg of Dilaudid instead of the 0.50 0.05 she's been getting. She states that she has discussed with her pain specialist who states that she will be getting a pain pump. Again she has not followed up with all the plans that we've discussed during the past admission. On applying the clonidine patch for blood pressure was better controlled. She is clinically stable for discharge again strongly recommended a follow-up with her primary care doctor her primary GI doctor and also evaluation at a tertiary institution. She refused her clonidin patch, leading to rebound hypertension. she tolerates PO. she understands that she may also have absorption problem hence the patch. I have advised on multiple occasion for this patient to follow with pain specialist and also obtain a pain pump if needed. I have also advised further evalation at the [facility] and have given recommendations but she has not followed and states she is unsure as to why. Refilled Pain med during this admission. Patient must follow with pain specialist. she states she has one, for further eval and pain control, Discharge diagnosis (1) Gastroparesis (2) Hypertensive urgency (3) ESRD on hemodialysis (4) Acute abdominal pain (5) Anemia of chronic disease due to renal disease (6) chronic opioid dependence syndrome (7) T2DM (type 2 diabetes mellitus) Disposition: DC-01 TO HOME OR SELFCARE Time spent for discharge: 35 MINS Core Measure Documentation - Palliative Care Palliative Care/ Comfort Measures: Not Applicable - Core Measures Any of the following diagnoses?: none - VTE Discharge Requirements Deep Vein Thrombosis/Pulmonary Embolism Present on Admission: No Exam - Physical Exam Narrative exam: VITAL SIGNS: Reviewed. GENERAL: The patient appeared well nourished and normally developed. Vital signs as documented. HEAD: No signs of head trauma. EYES: Pupils are equal. Extraocular motions intact. EARS: Hearing grossly intact. MOUTH: Oropharynx is normal. NECK: No adenopathy, no JVD. CHEST: Chest with clear breath sounds bilaterally. No wheezes, rales, or rhonchi. CARDIAC: Regular rate and rhythm. S1 and S2, without murmurs, gallops, or rubs. VASCULAR: No Edema. Peripheral pulses normal and equal in all extremities. ABDOMEN: Soft, tender. No sign of distention. No rebound or guarding, and no masses palpated. Bowel Sounds normal. MUSCULOSKELETAL: Good range of motion of all major joints. Extremities without clubbing, cyanosis or edema. NEUROLOGIC EXAM: Alert and oriented x 3. No focal sensory or strength deficits. Speech normal. Follows commands. PSYCHIATRIC: Mood normal SKIN: No rash or lesions. - Constitutional Vitals: Temp Pulse Resp BP Pulse Ox 97.6 F 80 20 187/85 100 04/02/17 22:00 04/03/17 05:02 04/02/17 22:00 04/03/17 05:02 04/02/17 22:00 Plan Activity: advance as tolerated, fall precautions Diet: diabetic, renal Special Instructions: record daily weights, record daily BP diary, record blood sugar diary Additional Instructions: must follow with your pain specialist. Highly recommend you follow at the [facility] for further evaluation to this gastroparesis and recurrent abdominal pain. Follow up with: PRIMARY MD YARITZA [Primary Care Provider] - 3-5 Days RACHAEL HARRISON MD [Staff Physician] - 7 Days Prescriptions: Nortriptyline [Pamelor] 25 mg PO BID #60 capsule oxyCODONE [Roxicodone TAB] 10 mg PO Q8H #12 tablet
[2017-04-03] MEDS: CATAPRES-TTS PATCH TD SCH (07:19)
[2017-04-03] MEDS: LOPRESSOR PO SCH (07:25)
[2017-04-03] MEDS: PROCARDIA XL PO SCH (07:25)
[2017-04-03] MEDS: NOVOLOG SUB-Q SCH ×3 (07:49→17:35)
[2017-04-03] MEDS: APRESOLINE PO SCH ×2 (08:01→13:30)
[2017-04-03] MEDS: ATIVAN IV PRN (08:02)
[2017-04-03] MEDS ORDERED: DILAUDID IV ONE (08:23)
[2017-04-03] MEDS: COZAAR PO SCH (09:09)
[2017-04-03] MEDS: PAMELOR PO SCH (09:09)
[2017-04-03] MEDS: PEPCID PO SCH (09:10)
[2017-04-03 10:08] LABS: BUN/Creatinine Ratio 3.54; Calcium 8.6 mg/dL (8.4-10.2); Chloride 95.6 mmol/L (98-107); Potassium 4.5 mmol/L (3.6-5.0)
[2017-04-03 10:13] LABS: Hematocrit 28.4 % (30.3-42.9); Hemoglobin 9.3 gm/dl (10.1-14.3); Mean Corpuscular HGB Conc 33 % (30-34); Mean Corpuscular Hemoglobin 28 pg (28-32); Mean Corpuscular Volume 86 fl (79-97); Platelet Count 225 K/mm3 (140-440); Red Cell Distribution Width 18.5 % (13.2-15.2); White Blood Count 7.6 K/mm3 (4.5-11.0)
[2017-04-03 12:26] VITALS: BP 179/86
--- NOTE | 2017-04-03 12:48 | Progress Note ---
Assessment and Plan (1) End stage renal disease on dialysis Current Visit: Yes Status: Chronic Plan to address problem: HD on MWF schedule (2) Accelerated hypertension Current Visit: No Status: Acute Plan to address problem: Accelerated hypertension secondary to intolerance of oral medications fluid overload. BP fluctuates. She was able to keep her BP meds down today. Will continue to monitor. (3) Anemia in chronic kidney disease Current Visit: Yes Status: Acute Plan to address problem: Give erythropoietin on dialysis (4) Gastroparesis due to DM Current Visit: No Status: Acute Plan to address problem: Antiemetics. Continue management by primary attending Subjective Date of service: 04/03/17 Interval history: C/o abdominal pain. Per RN pt has received pain meds recently. Sleepy Objective - Exam Narrative Exam: Young -Irish female lying in bed in no acute distress HEENT normocephalic atraumatic, pupils equal reactive to light, pink, clear oropharynx Neck supple, no thyromegaly no jugular venous distention CVS: S1-S2 regular rate rhythm without murmur, rub or gallop Chest: Clear to auscultation, no wheezing Abdomen: Soft nondistended, diffuse tenderness, no organomegaly no bruit bowel sounds present Extremities trace edema, no cyanosis or clubbing, AVF LUE with +thrill Genitourinary deferred Neuro awake, alert oriented x3 no gross deficit - Vital Signs Vital signs: Vital Signs - 12hr 04/03/17 04/03/17 04/03/17 01:39 02:38 04:05 Temperature Pulse Rate [ 85 87 88 Radial] Respiratory Rate Blood Pressure 208/98 208/104 214/98 [Left Arm] O2 Sat by Pulse Oximetry 04/03/17 04/03/17 04/03/17 05:02 06:00 08:26 Temperature 99.0 F Pulse Rate [ 80 85 88 Radial] Respiratory 20 Rate Blood Pressure 187/85 174/76 206/98 [Left Arm] O2 Sat by Pulse 98 Oximetry 04/03/17 12:25 Temperature 98.7 F Pulse Rate [ 82 Radial] Respiratory 20 Rate Blood Pressure 179/86 [Left Arm] O2 Sat by Pulse Oximetry - Lab 04/03/17 04:00 04/03/17 04:00 Most recent lab results Calcium 8.6 mg/dL (8.4-10.2) 04/03/17 04:00
[2017-04-03] MEDS: PERCOCET 5/325 PO PRN (13:30)
[2017-04-03] MEDS ORDERED: FLUSH HEPARIN IV ONE (13:48)
== END 2017-04-03 17:42 | disposition home or self-care (01) ==
LOC: ED 13:28 → 3A 16:24
PROVIDERS: ADMIT Internal Medicine; ATTEND Internal Medicine
DX: E11.43 Type 2 diabetes mellitus with diabetic autonomic (poly)neuropathy (principal); K31.84 Gastroparesis; E11.22 Type 2 diabetes mellitus with diabetic chronic kidney disease; I13.2 Hypertensive heart and chronic kidney disease with heart failure and with stage 5 chronic kidney disease, or end stage renal disease; I50.9 Heart failure, unspecified; N18.6 End stage renal disease; Z99.2 Dependence on renal dialysis; D63.1 Anemia in chronic kidney disease; J44.9 Chronic obstructive pulmonary disease, unspecified; Z87.19 Personal history of other diseases of the digestive system
CPT/HCPCS: 36415; 71010; 74000; 80048; 80053; 82962; 83036; 83690; 85025; 85027; 96374; 96375; 96376; 99285; G0378; J0360; J1170; J1200; J1630; J1642; J2060; J2405; J2765; J7030

== ENCOUNTER 2017-04-04 02:39 | Emergency (ER) | payer MEDICARE ==
[2017-04-04] MEDS ORDERED: CATAPRES PO ONE (03:58)
[2017-04-04] MEDS ORDERED: DILAUDID IV ONE (04:04)
[2017-04-04] MEDS ORDERED: ZOFRAN IV ONE (04:04)
[2017-04-04] MEDS ORDERED: APRESOLINE IV ONE (04:04)
[2017-04-04] MEDS ORDERED: HALDOL IM ONE (04:04)
--- NOTE | 2017-04-04 04:05 | Emergency Department Report ---
ED General Adult HPI - General Chief complaint: Abdominal Pain Stated complaint: ABDOMINAL PAIN Time Seen by Provider: 04/04/17 03:54 Source: patient, family, RN notes reviewed, old records reviewed Mode of arrival: Stretcher Limitations: No Limitations - History of Present Illness Initial comments: This is a 36-year-old female. The patient has a medical history of hypertension , chronic opioid dependence syndrome, end-stage renal disease on dialysis, chronic abdominal pain, gastroparesis, hypertension. Patient recently admitted to the hospital for hypertension and abdominal pain. As per review of her old discharge summary, patient has refused a clonidine patch, she is noted to be tolerating oral feeds, the patient had been advised on multiple occasions that she would need to follow up with a pain specialist and obtain a possible pain pump. In addition, the patient was advised to follow -up at the [facility]. Her recent discharge summary indicates that she does not follow-up. Recent discharge summary also indicates that the patient is quite interested in getting hydromorphone. The patient presents to the ER today complaining of abdominal pain. The abdominal pain is supraumbilical and epigastric. It is constant and sharp. It increases with palpation and range of motion. It decreases with hydromorphone, Ativan, Benadryl, as per the patient's recollection. The patient admits to nausea and vomiting, however she has not vomited since she's been here in the ER. The patient denies fevers and chills. The patient reports that she makes very scant urine, and that she is not having any irritative or obstructive urinary symptoms. Patient just discharged from the hospital for similar symptoms, had a negative x-ray, and has presented to this hospital multiple times for similar symptoms. -: Gradual Location: abdomen Consistency: constant Improves with: medication Associated Symptoms: loss of appetite, nausea/vomiting - Related Data Previous Rx's Medication Instructions Recorded Last Taken Type Dicyclomine [Bentyl] 20 mg PO QID PRN #30 tablet 03/06/17 Unknown Rx Famotidine [Pepcid] 20 mg PO QDAY #30 tablet 03/06/17 Unknown Rx Losartan [Cozaar] 100 mg PO QDAY #30 tablet 03/06/17 Unknown Rx Metoclopramide [Reglan TAB] 10 mg PO ACHS PRN #30 tablet 03/06/17 Unknown Rx Metoprolol [Lopressor TAB] 100 mg PO TID #90 tablet 03/06/17 Unknown Rx NIFEdipine XL [Procardia Xl] 90 mg PO Q12HR #60 tablet 03/06/17 Unknown Rx cloNIDine-TTS PATCH [Catapres-Tts 0.3 mg TD QWEEK #7 patch 03/06/17 Unknown Rx Patch] hydrALAZINE [Apresoline TAB] 100 mg PO TID #90 tab 03/06/17 Unknown Rx Promethazine [Phenergan TAB] 25 mg PO Q8H PRN #10 tab 03/23/17 Unknown Rx Nortriptyline [Pamelor] 25 mg PO BID #60 capsule 04/03/17 Unknown Rx oxyCODONE [Roxicodone TAB] 10 mg PO Q8H #12 tablet 04/03/17 Unknown Rx Dicyclomine [Bentyl] 10 mg PO QID PRN #20 capsule 04/04/17 Unknown Rx Famotidine [Pepcid] 20 mg PO QDAY #30 tablet 04/04/17 Unknown Rx Ondansetron [Zofran Odt] 4 mg PO QID PRN #20 tab.rapdis 04/04/17 Unknown Rx Promethazine [Phenergan SUPPOS] 50 mg NE Q6H PRN #20 supp.rect 04/04/17 Unknown Rx Allergies Allergy/AdvReac Type Severity Reaction Status Date / Time acetaminophen [From Percocet] Allergy Itching Verified 04/04/17 03:32 lisinopril Allergy Shortness Verified 04/04/17 03:32 of Breath oxycodone HCl [From Percocet] Allergy Itching Verified 04/04/17 03:32 Penicillins Allergy Hives Verified 04/04/17 03:32 morphine AdvReac Anaphylaxis Verified 04/04/17 03:32 ED Review of Systems ROS: Stated complaint: ABDOMINAL PAIN Other details as noted in HPI Constitutional: denies: fever Eyes: denies: vision change ENT: denies: epistaxis Respiratory: denies: cough Cardiovascular: denies: chest pain Gastrointestinal: abdominal pain, nausea, vomiting Genitourinary: denies: urgency, dysuria Musculoskeletal: back pain Skin: denies: lesions Neurological: weakness Psychiatric: anxiety ED Past Medical Hx - Past Medical History Previous Medical History?: Yes Hx Hypertension: Yes Hx Heart Attack/AMI: No Hx Congestive Heart Failure: Yes Hx Diabetes: Yes Hx Pulmonary Embolism: No Hx Liver Disease: No Hx Renal Disease: Yes Hx Arthritis: Yes Hx Headaches / Migraines: No Hx Seizures: No Hx Kidney Stones: No Hx Psychiatric Treatment: No Hx Asthma: Yes Hx COPD: Yes (3.5L/NC at home) Hx HIV: No Additional medical history: gastroparesis - Surgical History Past Surgical History?: Yes Hx Cholecystectomy: Yes (18 years ago) Additional Surgical History: c section, tubal ligation. fistula right arm - Social History Smoking Status: Never Smoker Substance Use Type: None - Medications Home Medications: Home Medications Medication Instructions Recorded Confirmed Last Taken Type Dicyclomine [Bentyl] 20 mg PO QID PRN #30 tablet 03/06/17 04/03/17 Unknown Rx Famotidine [Pepcid] 20 mg PO QDAY #30 tablet 03/06/17 04/03/17 Unknown Rx Losartan [Cozaar] 100 mg PO QDAY #30 tablet 03/06/17 04/03/17 Unknown Rx Metoclopramide [Reglan TAB] 10 mg PO ACHS PRN #30 tablet 03/06/17 04/03/17 Unknown Rx Metoprolol [Lopressor TAB] 100 mg PO TID #90 tablet 03/06/17 04/03/17 Unknown Rx NIFEdipine XL [Procardia Xl] 90 mg PO Q12HR #60 tablet 03/06/17 04/03/17 Unknown Rx cloNIDine-TTS PATCH [Catapres-Tts 0.3 mg TD QWEEK #7 patch 03/06/17 04/03/17 Unknown Rx Patch] hydrALAZINE [Apresoline TAB] 100 mg PO TID #90 tab 03/06/17 04/03/17 Unknown Rx Promethazine [Phenergan TAB] 25 mg PO Q8H PRN #10 tab 03/23/17 04/03/17 Unknown Rx Nortriptyline [Pamelor] 25 mg PO BID #60 capsule 04/03/17 Unknown Rx oxyCODONE [Roxicodone TAB] 10 mg PO Q8H #12 tablet 04/03/17 Unknown Rx Dicyclomine [Bentyl] 10 mg PO QID PRN #20 capsule 04/04/17 Unknown Rx Famotidine [Pepcid] 20 mg PO QDAY #30 tablet 04/04/17 Unknown Rx Ondansetron [Zofran Odt] 4 mg PO QID PRN #20 tab.rapdis 04/04/17 Unknown Rx Promethazine [Phenergan SUPPOS] 50 mg NE Q6H PRN #20 supp.rect 04/04/17 Unknown Rx ED Physical Exam - General Limitations: No Limitations General appearance: alert, in distress, obese - Head Head exam: Present: atraumatic, normocephalic - Eye Eye exam: Present: normal appearance, EOMI. Absent: nystagmus - ENT ENT exam: Present: normal exam, normal orophraynx, mucous membranes moist, normal external ear exam - Neck Neck exam: Present: normal inspection, full ROM. Absent: tenderness, meningismus - Respiratory Respiratory exam: Present: normal lung sounds bilaterally. Absent: respiratory distress, wheezes, rales, rhonchi, stridor, chest wall tenderness, accessory muscle use - Cardiovascular Cardiovascular Exam: Present: regular rate, normal rhythm, normal heart sounds. Absent: bradycardia, tachycardia, irregular rhythm, systolic murmur, diastolic murmur, rubs, gallop - GI/Abdominal GI/Abdominal exam: Present: soft, tenderness, normal bowel sounds, other (there is minimal epigastric tenderness. There is no rebound, guarding or peritoneal signs). Absent: distended, guarding, rebound, rigid, pulsatile mass - Extremities Exam Extremities exam: Present: normal inspection, full ROM, normal capillary refill , other (there is a right upper extremity AV fistula with an appropriate thrill) . Absent: pedal edema, joint swelling, calf tenderness - Back Exam Back exam: Present: normal inspection - Neurological Exam Neurological exam: Present: alert, oriented X3, other (Extraocular movements intact. Tongue midline. No facial droop. Facial sensation intact to light touch in the V1, V2, V3 distribution bilaterally. 5 and 5 strength in 4 extremities.. Sensation is intact to light touch in 4 extremities.). Absent: motor sensory deficit - Psychiatric Psychiatric exam: Present: anxious - Skin Skin exam: Present: warm, dry, intact, normal color. Absent: rash ED Course Vital Signs 04/04/17 04/04/17 04/04/17 03:32 04:24 04:47 Temperature 99.0 F Pulse Rate 86 100 H Respiratory 22 18 18 Rate Blood Pressure 215/152 202/111 Blood Pressure [Left] O2 Sat by Pulse 93 97 Oximetry 04/04/17 04:57 Temperature Pulse Rate 102 H Respiratory 19 Rate Blood Pressure Blood Pressure 197/104 [Left] O2 Sat by Pulse 100 Oximetry - Reevaluation(s) Reevaluation #1: 04/04/17 04:41 Differential diagnosis: Gastroparesis, narcotic bowel syndrome, hypertension secondary to medication noncompliance, drug-seeking tendencies, cyclic vomiting syndrome, Electrolyte derangement Assessment and plan: 36-year-old female who presents with her typical constellation of hypertension and abdominal pain and reported nausea and vomiting. I have not seen her vomit. The patient may have a component of drug- seeking behavior, but she certainly is somewhat tender, and appears to be in some distress, and may have a component of narcotic bowel syndrome, cyclic vomiting syndrome, or gastroparesis. She will be treated empirically with hydralazine, hydromorphone, and Haldol for presumed gastroparesis. I appreciate the patient's hypertension/elevated blood pressure, this is chronic, she has been counseled multiple times about this. We will check basic laboratory studies, EKG, and reassess. Reevaluation #2: 04/04/17 05:00 blood pressure improved. Patient able to tolerate liquid feeds. Laboratory studies reviewed. Potassium within normal limits. Patient will be discharged. Reevaluation #3: 04/04/17 05:05 patient feeling improved. No active vomiting. Able to tolerate liquid feeds. ED Medical Decision Making - Lab Data Result diagrams: 04/04/17 04:20 04/04/17 04:20 Vital Signs 04/04/17 04/04/17 03:32 04:24 Temperature 99.0 F Pulse Rate 86 100 H Respiratory 22 18 Rate Blood Pressure 215/152 202/111 O2 Sat by Pulse 93 Oximetry - EKG Data -: EKG Interpreted by Nm EKG shows normal: sinus rhythm Rate: normal - EKG Data 04/04/17 04:52 normal sinus, 100 bpm, normal intervals, right axis, hyperacute T waves noted in the anteroseptal leads, appears unchanged compared to prior from 03/02/2017, this is not morphologically consistent with STEMI, there is a rightward axis. Critical care attestation.: If time is entered above; I have spent that time in minutes in the direct care of this critically ill patient, excluding procedure time. ED Disposition Clinical Impression: End stage renal disease on dialysis, Hypertension, Abdominal pain Disposition: DC- TO HOME OR SELFCARE Is pt being admited?: No Does the pt Need Aspirin: No Condition: Stable Instructions: Abdominal Pain (ED), Hypertension (ED) Additional Instructions: Take the pain medication, nausea medication as directed. For intractable nausea and vomiting, use the Phenergan suppository. Follow up at the primary pain clinic/gastroenterology clinic as you were just instructed to. 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 Long-term complications of hypertension/elevated blood pressure includes stroke, heart attack, disability, , paralysis, loss of quality of life. Return to the ER right away with new pain, worsening pain, migration of pain, fevers, chills, confusion, intractable nausea or vomiting, inability to tolerate liquid feeds. Prescriptions: Dicyclomine [Bentyl] 10 mg PO QID PRN #20 capsule PRN Reason: Pain Famotidine [Pepcid] 20 mg PO QDAY #30 tablet Ondansetron [Zofran Odt] 4 mg PO QID PRN #20 tab.rapdis PRN Reason: Nausea Promethazine [Phenergan SUPPOS] 50 mg NE Q6H PRN #20 supp.rect PRN Reason: Nausea Referrals: PRIMARY CARE, [Primary Care Provider] - 3-5 Days RACHAEL HARRISON MD [Staff Physician] - 3-5 Days SHERYL ROB MD [Staff Physician] - 3-5 Days ANNIE PRATT MD [Staff Physician] - 3-5 Days
[2017-04-04 04:50] LABS: Hematocrit 29.9 % (30.3-42.9); Hemoglobin 9.6 gm/dl (10.1-14.3); Mean Corpuscular HGB Conc 32 % (30-34); Mean Corpuscular Hemoglobin 28 pg (28-32); Mean Corpuscular Volume 86 fl (79-97); Platelet Count 218 K/mm3 (140-440); Red Blood Count 3.47 M/mm3 (3.65-5.03); Red Cell Distribution Width 18.5 % (13.2-15.2); White Blood Count 7.1 K/mm3 (4.5-11.0)
[2017-04-04] MEDS ORDERED: BENADRYL PO ONE (04:50)
[2017-04-04 04:52] LABS: Albumin 4.1 g/dL (3.9-5); Albumin/Globulin Ratio 1.2 %; BUN/Creatinine Ratio 3.7; Bilirubin,Total 0.5 mg/dL (0.1-1.2); Calcium 9.4 mg/dL (8.4-10.2); Total Protein 7.6 g/dL (6.3-8.2)
[2017-04-04 04:53] LABS: Chloride 91.6 mmol/L (98-107); Potassium 4.5 mmol/L (3.6-5.0)
[2017-04-04] MEDS ORDERED: FLUSH HEPARIN IV ONE ×2 (08:36→08:40)
[2017-04-04 08:48] VITALS: BP 180/98
== END 2017-04-04 08:56 | disposition home or self-care (01) ==
LOC: ED 02:39
DX: E11.22 Type 2 diabetes mellitus with diabetic chronic kidney disease (principal); I12.0 Hypertensive chronic kidney disease with stage 5 chronic kidney disease or end stage renal disease; N18.6 End stage renal disease; Z99.2 Dependence on renal dialysis; R10.13 Epigastric pain; I50.9 Heart failure, unspecified; M19.90 Unspecified osteoarthritis, unspecified site; J44.9 Chronic obstructive pulmonary disease, unspecified; K31.84 Gastroparesis; J45.909 Unspecified asthma, uncomplicated; Z90.49 Acquired absence of other specified parts of digestive tract; Z88.0 Allergy status to penicillin; Z88.6 Allergy status to analgesic agent; Z88.8 Allergy status to other drugs, medicaments and biological substances
CPT/HCPCS: 36415; 80053; 83690; 84702; 85027; 93005; 93010; 96372; 96374; 96375; 99284; J0360; J1170; J1630; J1642; J2405

== ENCOUNTER 2017-05-24 14:31 | Inpatient (IN) | payer MEDICARE ==
[2017-05-24] MEDS ORDERED: ZOFRAN IV ONE ×2 (16:19→17:38)
[2017-05-24] MEDS ORDERED: TORADOL IV ONE (16:19)
[2017-05-24] MEDS ORDERED: ZOFRAN ONE (16:24)
[2017-05-24] MEDS ORDERED: TORADOL ONE (16:24)
[2017-05-24 16:27] LABS: Basophils % (Auto) 0.2 % (0.0-1.8); Eosinophils % (Auto) 0.1 % (0.0-4.3); Hematocrit 27.5 % (30.3-42.9); Hemoglobin 9.1 gm/dl (10.1-14.3); Mean Corpuscular HGB Conc 33 % (30-34); Mean Corpuscular Hemoglobin 28 pg (28-32); Mean Corpuscular Volume 86 fl (79-97); Platelet Count 289 K/mm3 (140-440); Red Blood Count 3.19 M/mm3 (3.65-5.03); Red Cell Distribution Width 17.4 % (13.2-15.2); White Blood Count 8.5 K/mm3 (4.5-11.0)
[2017-05-24 16:41] LABS: BUN/Creatinine Ratio 4.38; Chloride 89.6 mmol/L (98-107); Potassium 3.6 mmol/L (3.6-5.0)
[2017-05-24 17:12] LABS: Calcium 8.5 mg/dL (8.4-10.2)
[2017-05-24] MEDS ORDERED: DILAUDID IV ONE (17:38)
--- NOTE | 2017-05-24 17:54 | Emergency Department Report ---
HPI - General Chief Complaint: Chest Pain Time Seen by Provider: 05/24/17 16:55 - HPI HPI: Mid chest pain, with severe nausea vomiting. Patient with history of end-stage renal disease on dialysis has been compliant with dialysis schedules. She describes the pain as 10 out of 10 mid chest with radiation to bilateral arms. Patient also complaint of redness around dialysis access in the right arm. No fever no chills no night sweat. Patient states she vomited at least 10 times today, has taken medicine by mouth, which did not help her vomiting. Patient also taking pain medicine at home by mouth which didn't help also. ED Past Medical Hx - Past Medical History Previous Medical History?: Yes Hx Hypertension: Yes Hx Heart Attack/AMI: No Hx Congestive Heart Failure: Yes Hx Diabetes: Yes Hx Pulmonary Embolism: No Hx Liver Disease: No Hx Renal Disease: Yes (Dialysis MWF) Hx Arthritis: Yes Hx Headaches / Migraines: No Hx Seizures: Yes Hx Kidney Stones: No Hx Psychiatric Treatment: No Hx Asthma: Yes Hx COPD: Yes Hx HIV: No Additional medical history: gastroparesis - Surgical History Past Surgical History?: Yes Hx Cholecystectomy: Yes (18 years ago) Additional Surgical History: c section, tubal ligation. fistula right arm - Social History Smoking Status: Never Smoker Substance Use Type: None - Medications Home Medications: Home Medications Medication Instructions Recorded Confirmed Last Taken Type Metoprolol [Lopressor TAB] 100 mg PO TID #90 tablet 03/06/17 05/24/17 05/24/17 Rx hydrALAZINE [Apresoline TAB] 100 mg PO TID #90 tab 03/06/17 05/24/17 05/24/17 Rx Pantoprazole [Protonix TAB] 40 mg PO BID #20 tablet 04/12/17 05/24/17 05/05/17 07:00 Rx Cefuroxime [Ceftin] 250 mg PO QPM 05/24/17 05/24/17 Unknown History Cyclobenzaprine HCl [Flexeril 5 MG 10 mg PO BID PRN 05/24/17 05/24/17 Unknown History TAB] Dicyclomine [Bentyl] 20 mg PO QID PRN 05/24/17 05/24/17 Unknown History Gabapentin [Neurontin] 100 mg PO TID 05/24/17 05/24/17 05/24/17 History Labetalol HCl [Labetalol HCl] 300 mg PO TID 05/24/17 05/24/17 05/24/17 History Losartan [Cozaar] 100 mg PO BID 05/24/17 05/24/17 05/24/17 History Metoclopramide [Reglan TAB] 10 mg PO TID 05/24/17 05/24/17 05/24/17 History NIFEdipine XL [Procardia Xl] 90 mg PO QDAY 05/24/17 05/24/17 Unknown History Oxycodone HCl [Roxicodone TAB] 30 mg PO QID 05/24/17 05/24/17 Unknown History Promethazine [Phenergan TAB] 25 mg PO Q6H PRN 05/24/17 05/24/17 Unknown History Sucralfate [Carafate] 1 gm PO TID 05/24/17 05/24/17 05/24/17 History ED Review of Systems ROS: Stated complaint: N/V Other details as noted in HPI Comment: All other systems reviewed and negative Constitutional: no symptoms reported Cardiovascular: chest pain Endocrine: no symptoms reported, increased hunger Gastrointestinal: vomiting Physical Exam - Physical Exam Vital Signs: Vital Signs 05/24/17 05/24/17 05/24/17 14:38 14:45 14:56 Temperature 98.5 F Pulse Rate 113 H 113 H 112 H Respiratory 14 11 L 22 Rate Blood Pressure 197/106 180/91 O2 Sat by Pulse 100 100 99 Oximetry 05/24/17 05/24/17 05/24/17 15:00 15:15 15:27 Temperature Pulse Rate 110 H 110 H Respiratory 22 9 L 24 Rate Blood Pressure 197/103 199/110 O2 Sat by Pulse 100 100 100 Oximetry 05/24/17 05/24/17 05/24/17 15:30 15:45 16:00 Temperature Pulse Rate 113 H Respiratory 11 L Rate Blood Pressure 191/105 193/106 199/106 O2 Sat by Pulse 99 100 99 Oximetry 05/24/17 05/24/17 05/24/17 16:15 16:30 16:45 Temperature Pulse Rate 115 H 107 H 99 H Respiratory 12 20 10 L Rate Blood Pressure 182/95 193/98 158/82 O2 Sat by Pulse 100 100 100 Oximetry Physical Exam: Gen. alert and oriented 3 in no distress Head atraumatic normocephalic Eyes PERR LA EOMI Chest regular rate and rhythm normal S1-S2 lungs clear bilaterally Abdomen soft nondistended Back no point tenderness paravertebral tenderness Neuro no focal deficit. Psych normal mood. Extremities: Right arm, fistula area or redness. ED Course Vital Signs 05/24/17 05/24/17 05/24/17 14:38 14:45 14:56 Temperature 98.5 F Pulse Rate 113 H 113 H 112 H Respiratory 14 11 L 22 Rate Blood Pressure 197/106 180/91 O2 Sat by Pulse 100 100 99 Oximetry 05/24/17 05/24/17 05/24/17 15:00 15:15 15:27 Temperature Pulse Rate 110 H 110 H Respiratory 22 9 L 24 Rate Blood Pressure 197/103 199/110 O2 Sat by Pulse 100 100 100 Oximetry 05/24/17 05/24/17 05/24/17 15:30 15:45 16:00 Temperature Pulse Rate 113 H Respiratory 11 L Rate Blood Pressure 191/105 193/106 199/106 O2 Sat by Pulse 99 100 99 Oximetry 05/24/17 05/24/17 05/24/17 16:15 16:30 16:45 Temperature Pulse Rate 115 H 107 H 99 H Respiratory 12 20 10 L Rate Blood Pressure 182/95 193/98 158/82 O2 Sat by Pulse 100 100 100 Oximetry ED Medical Decision Making - Lab Data Result diagrams: 05/24/17 16:00 05/24/17 16:00 Critical care attestation.: If time is entered above; I have spent that time in minutes in the direct care of this critically ill patient, excluding procedure time. ED Disposition Clinical Impression: Chest pain, End stage renal disease, Right arm cellulitis Disposition: OP ADMIT IP TO THIS HOSP Is pt being admited?: Yes Does the pt Need Aspirin: No Condition: Stable Instructions: Chest Pain (ED) Referrals: PRIMARY CARE, [Primary Care Provider] - 3-5 Days
[2017-05-24] MEDS ORDERED: BENADRYL IV ONE (17:59)
[2017-05-24] MEDS ORDERED: BENADRYL ONE (17:59)
--- NOTE | 2017-05-24 18:07 | Admit Criteria Form ---
Admission Criteria Documentation: CHEST PAIN Clinical Indications for Admission to Inpatient Care (Place 'X' for any and all applicable criteria): Admission is indicated for chest pain and ANY ONE of the following(1)(2)(3)(4)(5 ): [ ]I. Angina with acute coronary syndrome (Also use Myocardial Infarction or Angina guideline) [ ]II. Hemodynamic instability [ X]III. Angina needing acute intervention as indicated by ALL of the following (11)(12): [X ]a) Unstable angina is present as indicated by angina that is ANY ONE of the following: [ ]i) New onset [ ]ii) Nocturnal [X ]iii) Prolonged at rest [ ]iv) Progressive [ X]b) Angina warrants acute intervention as indicated by ANY ONE of the following: [ ]i) Recurrent angina (e.g, not responding as previously to treatment) [ ]ii) Angina at rest or with low-level activities despite initial medical therapy [ ]iii) New or presumably new ST-segment depression on ECG [ ]iv) Signs or symptoms of heart failure (eg, dyspnea, pulmonary edema) [ ]v) New or worsening mitral regurgitation [ ]vi) Hemodynamic instability [ ]vii) Dangerous arrhythmia (eg, sustained ventricular tachycardia) [ ]viii) History of percutaneous coronary intervention within 6 months [ ]ix) History of coronary artery bypass graft surgery [ ]x) JANET risk score of 2 or greater[A] [X ]xi) History of Diabetes(14) [ ]xii) High-risk cardiac ischemia findings on noninvasive testing (e.g, echocardiogram, treadmill testing, nuclear scan) [ ]xiii) Chronic renal insufficiency (ie, estimated GFR less than 60 mL/min/1.732m) [ ]xiv) Left ventricular ejection fraction less than 40% [ ]IV. Evidence of IA (eg, cardiac biomarkers positive, ST-segment elevation on ECG) also use Myocardial Infarction Criteria Form. [ ]V. Pulmonary edema [ ]. Respiratory distress [ ]VII. Chest pain indicative of serious diagnosis other than coronary artery disease (eg, aortic dissection) [ ]VIII. Contraindications and/or Inappropriate clinical situations for Observational Care in patients with Chest Pain, when ANY ONE of the following is required: [ ]a) Patient with risk factor for pulmonary embolism, acute coronary syndrome and myocardial infarction (18) [ ]b) Patient with Pulmonary embolism require an average LOS of 4.3 days, therefore emergency department observation management is inappropriate 18,23 [ ]c) Painful condition/s in the elderly, have the highest rate of recidivism after emergency department observation management (10.8%) 20,21,22 [ ]d) Elevated cardiac biomarker requires intensive and exhaustive care (19) [X ]IX. General contraindications and/or Inappropriate clinical situations for Observational Care in patients with Chest Pain, when ANY ONE of the following is required: [X ]a) Prediction of prolongation of LOS based on ANY ONE of the following may be considered as a contraindication for observational care 2, 3, 4, 5, 6, 7, 8, 9, 10, 11 [ ]i) Age > 65 yrs. [ X]ii) Patient arriving by ambulance [ ]iii) Patient with high acuity [ ]iv) Patient requiring vital sign monitoring [ ]v) Patient on IV medication [ ]b) Systolic blood pressures 180mmHg 3,12 [ ]c) Patient with altered mental status including delirium and other alteration of consciousness, (3) [ ]d) Patient whose discharge disposition will be to a penitentiary home or rehabilitation home should not be managed in Emergency Department Observation Unit. CMS rule requires 3 days hospital stay before such placement. 3,13 [ ]e) Patient with failure to thrive due to broad array of etiologies 3,16,17 [ ]f) Inability to ambulate 3,14 Extended stay beyond goal length of stay may be needed for (1)(28): [ ]a) Specific condition diagnosed after evaluation (eg, pulmonary embolism, aortic dissection) [ ]b) Unstable angina [ ]c) Continued suspicion of acute coronary syndrome with inability to complete needed cardiac evaluation (eg, patient clinically unable to undergo stress testing) [ ]d) Myocardial infarction (Contents from ANGINA and CHEST PAIN clinical indications for admission to inpatient care have been integrated in this form) The original [employer] content created by [employer] has been revised. The portions of the content which have been revised are identified through the use of italic text or in bold, and [facility] [employer] has neither reviewed nor approved the modified material. All other unmodified content is copyright [facility]. Please see references footnoted in the original [facility] edition 2016 Admission Criteria Met: Yes
[2017-05-24] MEDS ORDERED: PHENERGAN PO PRN (18:23)
[2017-05-24] MEDS ORDERED: CYCLOBENZAPRINE HCL 10 MG PO PRN (18:23)
[2017-05-24] MEDS ORDERED: BENTYL PO PRN ×2 (18:23→18:45)
--- NOTE | 2017-05-24 18:23 | History and Physical Report ---
History of Present Illness Date of examination: 05/24/17 Date of admission: 05/817 Chief complaint: N/V for one day Redness at AV fistula site History of present illness: HPI Mid chest pain, with severe nausea vomiting. Patient with history of end-stage renal disease on dialysis has been compliant with dialysis schedules. She describes the pain as 10 out of 10 mid chest with radiation to bilateral arms. Patient also complaint of redness around dialysis access in the right arm. No fever no chills no night sweat. Patient states she vomited at least 10 times today, has taken medicine by mouth, which did not help her vomiting. Patient also taking pain medicine at home by mouth which didn't help also. - Past Medical History Previous Medical History?: Yes Hx Hypertension: Yes Hx Heart Attack/AMI: No Hx Congestive Heart Failure: Yes Hx Diabetes: Yes Hx Pulmonary Embolism: No Hx Liver Disease: No Hx Renal Disease: Yes (Dialysis MWF) Hx Arthritis: Yes Hx Headaches / Migraines: No Hx Seizures: Yes Hx Kidney Stones: No Hx Psychiatric Treatment: No Hx Asthma: Yes Hx COPD: Yes Hx HIV: No Additional medical history: gastroparesis - Surgical History Past Surgical History?: Yes Hx Cholecystectomy: Yes (18 years ago) Additional Surgical History: c section, tubal ligation. fistula right arm - Social History Smoking Status: Never Smoker Substance Use Type: None - Medications Home Medications: Home Medications Medication Instructions Recorded Confirmed Last Taken Type Metoprolol [Lopressor TAB] 100 mg PO TID #90 tablet 03/06/17 05/24/17 05/24/17 Rx hydrALAZINE [Apresoline TAB] 100 mg PO TID #90 tab 03/06/17 05/24/17 05/24/17 Rx Pantoprazole [Protonix TAB] 40 mg PO BID #20 tablet 04/12/17 05/24/17 05/05/17 07:00 Rx Cefuroxime [Ceftin] 250 mg PO QPM 05/24/17 05/24/17 Unknown History Cyclobenzaprine HCl [Flexeril 5 MG 10 mg PO BID PRN 05/24/17 05/24/17 Unknown History TAB] Dicyclomine [Bentyl] 20 mg PO QID PRN 05/24/17 05/24/17 Unknown History Gabapentin [Neurontin] 100 mg PO TID 05/24/17 05/24/1717 History Labetalol HCl [Labetalol HCl] 300 mg PO TID 05/24/17 05/24/17 05/24/17 History Losartan [Cozaar] 100 mg PO BID 05/24/17 05/24/17 05/24/17 History Metoclopramide [Reglan TAB] 10 mg PO TID 05/24/17 05/24/17 05/24/17 History NIFEdipine XL [Procardia Xl] 90 mg PO QDAY 05/24/17 05/24/17 Unknown History Oxycodone HCl [Roxicodone TAB] 30 mg PO QID 05/24/17 05/24/17 Unknown History Promethazine [Phenergan TAB] 25 mg PO Q6H PRN 05/24/17 05/24/17 Unknown History Sucralfate [Carafate] 1 gm PO TID 05/24/17 05/24/17 05/24/17 History ROS: Stated complaint: N/V Other details as noted in HPI Comment: All other systems reviewed and negative Constitutional: no symptoms reported Cardiovascular: chest pain Endocrine: no symptoms reported, increased hunger Gastrointestinal: vomiting Medications and Allergies Allergies Allergy/AdvReac Type Severity Reaction Status Date / Time acetaminophen [From Percocet] Allergy Itching Verified 04/04/17 03:32 lisinopril Allergy Shortness Verified 04/04/17 03:32 of Breath oxycodone HCl [From Percocet] Allergy Itching Verified 04/04/17 03:32 Penicillins Allergy Hives Verified 04/04/17 03:32 morphine AdvReac Anaphylaxis Verified 04/04/17 03:32 Home Medications Medication Instructions Recorded Confirmed Last Taken Type Metoprolol [Lopressor TAB] 100 mg PO TID #90 tablet 03/06/17 05/24/17 05/24/17 Rx hydrALAZINE [Apresoline TAB] 100 mg PO TID #90 tab 03/06/17 05/24/17 05/24/17 Rx Pantoprazole [Protonix TAB] 40 mg PO BID #20 tablet 04/12/17 05/24/17 05/05/17 07:00 Rx Cefuroxime [Ceftin] 250 mg PO QPM 05/24/17 05/24/17 Unknown History Cyclobenzaprine HCl [Flexeril 5 MG 10 mg PO BID PRN 05/24/17 05/24/17 Unknown History TAB] Dicyclomine [Bentyl] 20 mg PO QID PRN 05/24/17 05/24/17 Unknown History Gabapentin [Neurontin] 100 mg PO TID 05/24/17 05/24/17 05/24/17 History Labetalol HCl [Labetalol HCl] 300 mg PO TID 05/24/17 05/24/17 05/24/17 History Losartan [Cozaar] 100 mg PO BID 05/24/17 05/24/17 05/24/17 History Metoclopramide [Reglan TAB] 10 mg PO TID 05/24/17 05/24/17 05/24/17 History NIFEdipine XL [Procardia Xl] 90 mg PO QDAY 05/24/17 05/24/17 Unknown History Oxycodone HCl [Roxicodone TAB] 30 mg PO QID 05/24/17 05/24/17 Unknown History Promethazine [Phenergan TAB] 25 mg PO Q6H PRN 05/24/17 05/24/17 Unknown History Sucralfate [Carafate] 1 gm PO TID 05/24/17 05/24/17 05/24/17 History Exam - Constitutional Vitals: Temp Pulse Resp BP Pulse Ox 98.5 F 101 H 15 156/84 100 05/24/17 14:56 05/24/17 17:45 05/24/17 17:45 05/24/17 17:45 05/24/17 17:45 General appearance: Present: no acute distress, well-nourished - EENT Eyes: Present: PERRL ENT: hearing intact, clear oral mucosa - Neck Neck: Present: supple, normal ROM - Respiratory Respiratory effort: normal Respiratory: bilateral: CTA - Cardiovascular Heart rate: 80 Rhythm: regular Heart Sounds: Present: S1 & S2. Absent: rub, click - Extremities Extremities: pulses symmetrical, No edema Extremity abnormal: tenderness (at Av fistula site and redness) Peripheral Pulses: within normal limits - Abdominal General gastrointestinal: Present: soft, non-tender, non-distended, normal bowel sounds Female genitourinary: Present: normal - Integumentary Integumentary: Present: clear, warm, dry - Musculoskeletal Musculoskeletal: gait normal, strength equal bilaterally - Psychiatric Psychiatric: appropriate mood/affect, intact judgment & insight - Neurologic Neurologic: CNII-XII intact, moves all extremities Results - Labs CBC & Chem 7: 05/25/17 05:43 05/25/17 05:43 Labs: Laboratory Last Values WBC 8.5 K/mm3 (4.5-11.0) 05/24/17 16:00 RBC 3.19 M/mm3 (3.65-5.03) L 05/24/17 16:00 Hgb 9.1 gm/dl (10.1-14.3) L 05/24/17 16:00 Hct 27.5 % (30.3-42.9) L 05/24/17 16:00 MCV 86 fl (79-97) 05/24/17 16:00 MCH 28 pg (28-32) 05/24/17 16:00 MCHC 33 % (30-34) 05/24/17 16:00 RDW 17.4 % (13.2-15.2) H 05/24/17 16:00 Plt Count 289 K/mm3 (140-440) 05/24/17 16:00 Lymph % (Auto) 7.7 % (13.4-35.0) L 05/24/17 16:00 Bent % (Auto) 11.9 % (0.0-7.3) H 05/24/17 16:00 Eos % (Auto) 0.1 % (0.0-4.3) 05/24/17 16:00 Baso % (Auto) 0.2 % (0.0-1.8) 05/24/17 16:00 Lymph # 0.7 K/mm3 (1.2-5.4) L 05/24/17 16:00 Bent # 1.0 K/mm3 (0.0-0.8) H 05/24/17 16:00 Eos # 0.0 K/mm3 (0.0-0.4) 05/24/17 16:00 Baso # 0.0 K/mm3 (0.0-0.1) 05/24/17 16:00 Seg Neutrophils % 80.1 % (40.0-70.0) H 05/24/17 16:00 Seg Neutrophils # 6.8 K/mm3 (1.8-7.7) 05/24/17 16:00 Sodium 135 mmol/L (137-145) L 05/24/17 16:00 Potassium 3.6 mmol/L (3.6-5.0) 05/24/17 16:00 Chloride 89.6 mmol/L (98-107) L 05/24/17 16:00 Carbon Dioxide 30 mmol/L (22-30) 05/24/17 16:00 Anion Gap 19 mmol/L 05/24/17 16:00 BUN 25 mg/dL (7-17) H 05/24/17 16:00 Creatinine 5.7 mg/dL (0.7-1.2) H 05/24/17 16:00 Estimated GFR 10 ml/min 05/24/17 16:00 BUN/Creatinine Ratio 4.38 % 05/24/17 16:00 Glucose 127 mg/dL (65-100) H 05/24/17 16:00 Calcium 8.5 mg/dL (8.4-10.2) 05/24/17 16:00 Troponin T 0.429 ng/mL (0.00-0.029) H* 05/24/17 16:00 Triglycerides 102 mg/dL (2-149) 05/24/17 16:00 Cholesterol 143 mg/dL (50-199) 05/24/17 16:00 LDL Cholesterol Direct 74 mg/dL (50-130) 05/24/17 16:00 HDL Cholesterol 49 mg/dL (40-59) 05/24/17 16:00 Cholesterol/HDL Ratio 2.91 % 05/24/17 16:00 Lipase 27 units/L (13-60) 05/24/17 16:00 Short CBC 05/24/17 05/25/17 Range/Units 16:00 05:43 WBC 8.5 7.1 (4.5-11.0) K/mm3 Hgb 9.1 L 8.5 L (10.1-14.3) gm/dl Hct 27.5 L 25.3 L (30.3-42.9) % Plt Count 289 275 (140-440) K/mm3 BMP 05/24/17 05/25/17 16:00 05:43 Sodium 135 L 136 L Potassium 3.6 3.8 Chloride 89.6 L 90.9 L Carbon Dioxide 30 30 BUN 25 H 30 H Creatinine 5.7 H 6.1 H Glucose 127 H 119 H Calcium 8.5 8.4 Cardiac Enzymes 05/24/17 05/24/17 Range/Units 16:00 23:00 Troponin T 0.429 H* 0.410 H* (0.00-0.029) ng/mL Liver Function 05/25/17 Range/Units 05:43 Total Bilirubin 0.20 (0.1-1.2) mg/dL AST 11 (5-40) units/L ALT 10 (7-56) units/L Alkaline Phosphatase 92 (35-129) units/L Albumin 3.0 L (3.9-5) g/dL Assessment and Plan Advance Directives: Yes (Full code) - Patient Problems (1) Cellulitis of right upper extremity Current Visit: Yes Status: Acute Plan to address problem: Iv Unasyn and vancomycin initiated (2) Intractable nausea and vomiting Current Visit: No Status: Acute Qualifiers: Vomiting type: cyclical vomiting Qualified Code(s): G43.A1 - Cyclical vomiting, intractable Plan to address problem: Iv zofran and iv dilaudid Severe Gastroparesis (3) End stage renal disease Current Visit: Yes Status: Chronic Plan to address problem: Cont HD Nephrology consulted (4) Diabetes mellitus type 2 in obese Current Visit: No Status: Acute (5) Accelerated hypertension Current Visit: No Status: Acute Plan to address problem: Resume Antihypertensives and IV Hydralazine prn (6) DVT prophylaxis Current Visit: No Status: Acute Plan to address problem: Heparin SQ (7) Discharge planning issues Current Visit: No Status: Acute Plan to address problem: Recurrent admissions to Hospital.Pain med seeking behavior.???Needs counselling consult
[2017-05-24] MEDS ORDERED: MILK OF MAGNESIA PO PRN (18:25)
[2017-05-24] MEDS ORDERED: DULCOLAX PR PRN (18:25)
[2017-05-24] MEDS ORDERED: TYLENOL PO PRN (18:25)
[2017-05-24] MEDS ORDERED: OXYCODONE HCL 30 MG PO SCH (18:30)
[2017-05-24] MEDS ORDERED: FLEXERIL PO PRN (18:45)
[2017-05-24] MEDS: CARAFATE PO SCH (19:37)
[2017-05-24] MEDS: PROCARDIA XL PO SCH (19:37)
[2017-05-24] MEDS: LOPRESSOR PO SCH (19:37)
[2017-05-24] MEDS ORDERED: UNASYN/NS 3 GM/100 ML 3 GM/100 ML BAG IV ONE (19:40)
[2017-05-24] MEDS ORDERED: REGLAN ONE (19:40)
[2017-05-24] MEDS ORDERED: NEURONTIN ONE (19:41)
[2017-05-24] MEDS: REGLAN PO SCH (19:43)
[2017-05-24] MEDS: UNASYN/NS 3 GM/100 ML 3 GM/100 ML BAG IV SCH (19:43)
[2017-05-24] MEDS: NEURONTIN PO SCH (19:43)
[2017-05-24] MEDS: NORMODYNE PO SCH (19:51)
[2017-05-24] MEDS ORDERED: NON-FORMULARY (Labetalol Hcl [Labetalol Hcl] 300 MG) PO SCH (20:00)
[2017-05-24] MEDS ORDERED: ROXICODONE ONE (20:02)
[2017-05-24] MEDS: ROXICODONE PO SCH (20:04)
[2017-05-24] MEDS ORDERED: APRESOLINE ONE (20:30)
[2017-05-24] MEDS: APRESOLINE PO SCH (20:32)
[2017-05-24] MEDS ORDERED: NACL 0.9% 100 ML IV PRN (22:06)
[2017-05-25] MEDS: HEPARIN SUB-Q SCH ×4 (01:16→21:51)
[2017-05-25] MEDS: COZAAR PO SCH ×3 (01:17→21:42)
[2017-05-25] MEDS: PROTONIX PO SCH ×3 (01:19→21:44)
[2017-05-25] MEDS: DILAUDID IV PRN ×6 (01:24→22:03)
[2017-05-25] MEDS: UNASYN/NS 3 GM/100 ML 3 GM/100 ML BAG IV SCH ×3 (01:59→15:08)
[2017-05-25] MEDS: ZOFRAN IV PRN ×2 (02:22→15:25)
[2017-05-25] MEDS: BENADRYL IV PRN ×4 (02:23→21:44)
[2017-05-25] MEDS: ROXICODONE PO SCH ×3 (03:04→18:13)
[2017-05-25 06:35] LABS: Basophils % (Auto) 0.6 % (0.0-1.8); Eosinophils % (Auto) 0.8 % (0.0-4.3); Hematocrit 25.3 % (30.3-42.9); Hemoglobin 8.5 gm/dl (10.1-14.3); Mean Corpuscular HGB Conc 34 % (30-34); Mean Corpuscular Hemoglobin 29 pg (28-32); Mean Corpuscular Volume 86 fl (79-97); Platelet Count 275 K/mm3 (140-440); Red Blood Count 2.94 M/mm3 (3.65-5.03); Red Cell Distribution Width 17.7 % (13.2-15.2); White Blood Count 7.1 K/mm3 (4.5-11.0)
[2017-05-25 06:54] LABS: Albumin/Globulin Ratio 0.8 %; BUN/Creatinine Ratio 4.91; Bilirubin,Total 0.2 mg/dL (0.1-1.2); Calcium 8.4 mg/dL (8.4-10.2); Chloride 90.9 mmol/L (98-107); Potassium 3.8 mmol/L (3.6-5.0); Total Protein 6.9 g/dL (6.3-8.2)
--- NOTE | 2017-05-25 07:24 | XRay Report ---
AP CHEST: HISTORY: chest pain Borderline to mild cardiomegaly and central pulmonary venous congestion have resolved since 05/06/17. The lungs are clear. No evidence for pneumonia, CHF or pneumothorax. Right [id number] is unchanged terminating in the right atrium. The bony structures are unremarkable. IMPRESSION: Unremarkable AP chest.
[2017-05-25] MEDS: REGLAN PO SCH ×3 (09:00→21:43)
[2017-05-25] MEDS: NEURONTIN PO SCH ×3 (09:00→21:44)
[2017-05-25] MEDS: CARAFATE PO SCH ×3 (09:00→21:45)
[2017-05-25] MEDS: NORMODYNE PO SCH ×4 (09:02→22:07)
[2017-05-25] MEDS: LOPRESSOR PO SCH ×2 (09:02→15:05)
[2017-05-25] MEDS: PROCARDIA XL PO SCH (09:02)
[2017-05-25] MEDS: APRESOLINE PO SCH ×3 (09:02→22:06)
[2017-05-25] MEDS ORDERED: NACL 0.9% 100 ML IV PRN (13:08)
[2017-05-25] MEDS ORDERED: NACL 0.9 (PRIMING MACHINE ONLY DIALYSIS) MC ONE (13:31)
--- NOTE | 2017-05-25 15:14 | Consultation ---
History of Present Illness - Reason for Consult Consult date: 05/25/17 end stage renal disease, accelerated hypertension - History of Present Illness 37 yo AAF with multiple medical history listed below, multiple hospitalization with gastroparesis exacerbation, She complains of epigastic pain, 10/10 in severity and in association with persistent N/V. No relieving factors. Renal consult requested for management of ESRD/HD. Past History Past Medical History: HTN, CHF, ESRD on HD MWF schedule, chronic abdominal pain secondary to gastroparesis, COPD oxygen dependent at home @ 2LNC, pulmonary HTN Past Surgical History: foot surgery, AVF, permcaths Social history: lives with her kids and mother, no smoking, alcohol or illicit drug use Family history: No kidney disease Medications and Allergies Allergies Allergy/AdvReac Type Severity Reaction Status Date / Time acetaminophen [From Percocet] Allergy Itching Verified 04/04/17 03:32 lisinopril Allergy Shortness Verified 04/04/17 03:32 of Breath oxycodone HCl [From Percocet] Allergy Itching Verified 04/04/17 03:32 Penicillins Allergy Hives Verified 04/04/17 03:32 morphine AdvReac Anaphylaxis Verified 04/04/17 03:32 Home Medications Medication Instructions Recorded Confirmed Last Taken Type Metoprolol [Lopressor TAB] 100 mg PO TID #90 tablet 03/06/17 05/24/17 05/24/17 Rx hydrALAZINE [Apresoline TAB] 100 mg PO TID #90 tab 03/06/17 05/24/17 05/24/17 Rx Pantoprazole [Protonix TAB] 40 mg PO BID #20 tablet 04/12/17 05/24/17 05/05/17 07:00 Rx Cefuroxime [Ceftin] 250 mg PO QPM 05/24/17 05/24/17 Unknown History Cyclobenzaprine HCl [Flexeril 5 MG 10 mg PO BID PRN 05/24/17 05/24/17 Unknown History TAB] Dicyclomine [Bentyl] 20 mg PO QID PRN 05/24/17 05/24/17 Unknown History Gabapentin [Neurontin] 100 mg PO TID 05/24/17 05/24/17 05/24/17 History Labetalol HCl [Labetalol HCl] 300 mg PO TID 05/24/17 05/24/17 05/24/17 History Losartan [Cozaar] 100 mg PO BID 05/24/17 05/24/17 05/24/17 History Metoclopramide [Reglan TAB] 10 mg PO TID 05/24/17 05/24/17 05/24/17 History NIFEdipine XL [Procardia Xl] 90 mg PO QDAY 05/24/17 05/24/17 Unknown History Oxycodone HCl [Roxicodone TAB] 30 mg PO QID 05/24/17 05/24/17 Unknown History Promethazine [Phenergan TAB] 25 mg PO Q6H PRN 05/24/17 05/24/17 Unknown History Sucralfate [Carafate] 1 gm PO TID 05/24/17 05/24/17 05/24/17 History Active Meds: Active Medications Acetaminophen (Tylenol) 650 mg PO Q4H PRN PRN Reason: Pain MILD(1-3)/Fever >100.5/CRUZ Bisacodyl (Dulcolax) [address] QDAY PRN PRN Reason: Constipation unrelieved by MOM Cyclobenzaprine HCl (Flexeril) 10 mg PO BID PRN PRN Reason: Muscle Spasm Dicyclomine HCl (Bentyl) 20 mg PO QID PRN PRN Reason: Pain Diphenhydramine HCl (Benadryl) 25 mg IV Q6H PRN PRN Reason: Itching Last Admin: 05/25/17 08:49 Dose: 25 mg Epoetin Armando (Epogen) 20,000 unit IV CELENA PRN PRN Reason: hemodialysis Gabapentin (Neurontin) 100 mg PO TID [facility] Last Admin: 05/25/17 15:05 Dose: Not Given Heparin Sodium (Porcine) (Heparin) 5,000 unit SUB-Q Q12HR [facility] Last Admin: 05/25/17 09:02 Dose: Not Given Hydralazine HCl (Apresoline) 100 mg PO TID [facility] Last Admin: 05/25/17 15:05 Dose: Not Given Hydromorphone HCl (Dilaudid) 1 mg IV Q3H PRN PRN Reason: Pain , Severe (7-10) Last Admin: 05/25/17 08:50 Dose: 1 mg Sodium Chloride (Nacl 0.9%) 100 mls @ 999 mls/hr IV CELENA PRN PRN Reason: Hypotension Sodium Chloride (Nacl 0.9%) 100 mls @ 999 mls/hr IV CELENA PRN PRN Reason: Hypotension Ampicillin Sodium/Sulbactam Sodium (Unasyn/Ns 3 Gm/100 Ml) 3 gm in 100 mls @ 100 mls/hr IV Q24HR [facility] PRN Reason: Protocol Labetalol HCl (Normodyne) 300 mg PO TID [facility] Last Admin: 05/25/17 15:06 Dose: Not Given Losartan Potassium (Cozaar) 100 mg PO BID [facility] Last Admin: 05/25/17 09:02 Dose: Not Given Magnesium Hydroxide (Milk Of Magnesia) 30 ml PO Q4H PRN PRN Reason: Constipation Metoclopramide HCl (Reglan) 10 mg PO TID [facility] Last Admin: 05/25/17 15:06 Dose: Not Given Metoprolol Tartrate (Lopressor) 100 mg PO TID [facility] Last Admin: 05/25/17 15:05 Dose: Not Given Nifedipine (Procardia Xl) 90 mg PO QDAY [facility] Last Admin: 05/25/17 09:02 Dose: Not Given Ondansetron HCl (Zofran) 4 mg IV Q8H PRN PRN Reason: N/V unrelieved by Reglan Last Admin: 05/25/17 02:22 Dose: 4 mg Oxycodone HCl (Roxicodone) 30 mg PO Q8H [facility] Last Admin: 05/25/17 11:27 Dose: Not Given Pantoprazole Sodium (Protonix) 40 mg PO BID [facility] Last Admin: 05/25/17 09:00 Dose: 40 mg Promethazine HCl (Phenergan) 25 mg PO Q6H PRN PRN Reason: Nausea Sucralfate (Carafate) 1 gm PO TID [facility] Last Admin: 05/25/17 15:05 Dose: Not Given Review of Systems Constitutional: weight loss, fatigue, weakness, malaise Ears, nose, mouth and throat: no decreased hearing, no nose pain Breasts: deferred Cardiovascular: no chest pain, no orthopnea, no palpitations Respiratory: no cough, no hemoptysis Gastrointestinal: abdominal pain, nausea, vomiting, no diarrhea Genitourinary Female: no pelvic pain, no flank pain, no urinary frequency, no urgency Rectal: no pain, no incontinence Musculoskeletal: no neck stiffness, no neck pain, no low back pain Integumentary: no rash, no pruritis Neurological: no head injury, no paralysis Psychiatric: no anxiety, no memory loss Endocrine: no cold intolerance, no heat intolerance Hematologic/Lymphatic: no easy bruising, no easy bleeding Exam - Vital Signs Vital signs: Vital Signs Pulse Resp Pulse Ox 113 H 14 100 05/24/17 14:38 05/24/17 14:38 05/24/17 14:38 - General Appearance General appearance: well-developed, well-nourished, appears stated age EENT: PERRL, mucous membranes moist Neck: Present: neck supple, trachea midline. Absent: JVD/HJR, Masses Respiratory: Decreased Breath Sounds, Other (no wheezing ) Heart: regular, normal heart rate, S1S2, no murmurs Gastrointestinal: Present: normoactive bowel sounds, other (no tenderness ). Absent: tenderness, distended, masses, guarding Integumentary: no rash, warm and dry, other (erythema RUE Slight ) Neurologic: no focal deficit, alert and oriented x3, gait normal, strength 5/5 Musculoskeletal: Present: other. Absent: deformities, joint swelling Psychiatric: mood/affect appropriate, cooperative Results - Lab Results 05/25/17 05:43 05/25/17 05:43 Most recent lab results Calcium 8.4 mg/dL (8.4-10.2) 05/25/17 05:43 Assessment and Plan (1) ESRD on hemodialysis Current Visit: Yes Status: Chronic Plan to address problem: Cont MWF schedule, will adjust UF as tolerated (2)Accelerated hypertension Current Visit: Yes Status: Acute Plan to address problem: Resume her oral antihypertensives IV hydrazine for SBP> 160 (3) Gastroparesis due to DM with exacerbation Current Visit: Yes Status: Acute Plan to address problem: Continues to have abdominal pain N and V Reglan prn Consider GI consult for further eval and management (4) Anemia in chronic kidney disease Current Visit: No Status: Acute Qualifiers: Chronic kidney disease stage: C Plan to address problem: Epogen on dialysis (5) 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
--- NOTE | 2017-05-25 17:03 | Progress Note ---
Assessment and Plan Assessment and plan: -- right upper extremity cellulitis IV antibiotics, follow cultures, elevate the limb --End Stage renal disease on hemodialysis As per schedule, nephrology following --Malignant hypertension, Continue current antihypertensives and when necessary medication --Type 2 diabetes mellitus Accu-Chek sliding scale coverage ADA diet and insulin --Anemia of chronic kidney disease Closely monitor H&H, Epogen during dialysis, transfuse as needed --Gastroparesis secondary to diabetes mellitus Supportive care --[id number] protein calorie malnutrition/hypoalbuminemia Supportive care nutritional supplements --DVT prophylaxis; heparin and renal dose Hospitalist Physical - Constitutional Vitals: Temp Pulse Resp BP Pulse Ox 99.5 F 100 H 20 198/98 97 05/25/17 14:19 05/25/17 14:19 05/25/17 14:19 05/25/17 14:19 05/25/17 10:00 General appearance: Present: no acute distress, well-nourished Results - Labs CBC & Chem 7: 05/25/17 05:43 05/25/17 05:43 Labs: Laboratory Last Values WBC 7.1 K/mm3 (4.5-11.0) 05/25/17 05:43 RBC 2.94 M/mm3 (3.65-5.03) L 05/25/17 05:43 Hgb 8.5 gm/dl (10.1-14.3) L 05/25/17 05:43 Hct 25.3 % (30.3-42.9) L 05/25/17 05:43 MCV 86 fl (79-97) 05/25/17 05:43 MCH 29 pg (28-32) 05/25/17 05:43 MCHC 34 % (30-34) 05/25/17 05:43 RDW 17.7 % (13.2-15.2) H 05/25/17 05:43 Plt Count 275 K/mm3 (140-440) 05/25/17 05:43 Lymph % (Auto) 9.1 % (13.4-35.0) L 05/25/17 05:43 [place] % (Auto) 10.5 % (0.0-7.3) H 05/25/17 05:43 Eos % (Auto) 0.8 % (0.0-4.3) 05/25/17 05:43 Baso % (Auto) 0.6 % (0.0-1.8) 05/25/17 05:43 Lymph # 0.6 K/mm3 (1.2-5.4) L 05/25/17 05:43 [place] # 0.7 K/mm3 (0.0-0.8) 05/25/17 05:43 Eos # 0.1 K/mm3 (0.0-0.4) 05/25/17 05:43 Baso # 0.0 K/mm3 (0.0-0.1) 05/25/17 05:43 Seg Neutrophils % 79.0 % (40.0-70.0) H 05/25/17 05:43 Seg Neutrophils # 5.6 K/mm3 (1.8-7.7) 05/25/17 05:43 Sodium 136 mmol/L (137-145) L 05/25/17 05:43 Potassium 3.8 mmol/L (3.6-5.0) 05/25/17 05:43 Chloride 90.9 mmol/L (98-107) L 05/25/17 05:43 Carbon Dioxide 30 mmol/L (22-30) 05/25/17 05:43 Anion Gap 19 mmol/L 05/25/17 05:43 BUN 30 mg/dL (7-17) H 05/25/17 05:43 Creatinine 6.1 mg/dL (0.7-1.2) H 05/25/17 05:43 Estimated GFR 9 ml/min 05/25/17 05:43 BUN/Creatinine Ratio 4.91 % 05/25/17 05:43 Glucose 119 mg/dL (65-100) H 05/25/17 05:43 Calcium 8.4 mg/dL (8.4-10.2) 05/25/17 05:43 Total Bilirubin 0.20 mg/dL (0.1-1.2) 05/25/17 05:43 AST 11 units/L (5-40) 05/25/17 05:43 ALT 10 units/L (7-56) 05/25/17 05:43 Alkaline Phosphatase 92 units/L (35-129) 05/25/17 05:43 Troponin T 0.410 ng/mL (0.00-0.029) H* 05/24/17 23:00 Total Protein 6.9 g/dL (6.3-8.2) 05/25/17 05:43 Albumin 3.0 g/dL (3.9-5) L 05/25/17 05:43 Albumin/Globulin Ratio 0.8 % 05/25/17 05:43 Triglycerides 102 mg/dL (2-149) 05/24/17 16:00 Cholesterol 143 mg/dL (50-199) 05/24/17 16:00 LDL Cholesterol Direct 74 mg/dL (50-130) 05/24/17 16:00 HDL Cholesterol 49 mg/dL (40-59) 05/24/17 16:00 Cholesterol/HDL Ratio 2.91 % 05/24/17 16:00 Lipase 27 units/L (13-60) 05/24/17 16:00
[2017-05-25] MEDS: CATAPRES PO SCH (17:09)
--- NOTE | 2017-05-25 17:53 | Progress Note ---
Assessment and Plan Assessment and plan: -- Right upper extremity cellulitis IV antibiotics, vancomycin , Unasyn ,follow cultures, elevate the limb --End Stage renal disease on hemodialysis As per schedule, nephrology following --Malignant hypertension, Continue current antihypertensives and when necessary medication --Type 2 diabetes mellitus Accu-Chek sliding scale coverage ADA diet and insulin --Anemia of chronic kidney disease Closely monitor H&H, Epogen during dialysis, transfuse as needed --Gastroparesis secondary to diabetes mellitus Supportive care --Mwgn-ia-quvxinvd protein calorie malnutrition/hypoalbuminemia Supportive care nutritional supplements --DVT prophylaxis; heparin and renal dose History Interval history: Patient seen and evaluated medical records reviewed No new events reported by the nursing staff Febrile, MAXIMUM TEMPERATURE 102 degrees AAO x 3 not in acute distress Hospitalist Physical - Constitutional Vitals: Temp Pulse Resp BP Pulse Ox 102.2 F H 115 H 20 186/99 97 05/25/17 17:15 05/25/17 17:15 05/25/17 17:15 05/25/17 17:15 05/25/17 10:00 General appearance: Present: no acute distress, well-nourished - EENT Eyes: Present: PERRL, EOM intact - Neck Neck: Present: supple, normal ROM - Respiratory Respiratory effort: normal Respiratory: bilateral: diminished, rales, negative: rhonchi, wheezing - Cardiovascular Rhythm: regular Heart Sounds: Present: S1 & S2 (tachycardia) - Extremities Extremities: no ischemia, abnormal (right upper extremity cellulitis) - Abdominal General gastrointestinal: soft, non-tender, non-distended, normal bowel sounds - Integumentary Integumentary: Present: clear, warm - Psychiatric Psychiatric: appropriate mood/affect, cooperative - Neurologic Neurologic: CNII-XII intact, moves all extremities Results - Labs CBC & Chem 7: 05/25/17 05:43 05/25/17 05:43 Labs: Laboratory Last Values WBC 7.1 K/mm3 (4.5-11.0) 05/25/17 05:43 RBC 2.94 M/mm3 (3.65-5.03) L 05/25/17 05:43 Hgb 8.5 gm/dl (10.1-14.3) L 05/25/17 05:43 Hct 25.3 % (30.3-42.9) L 05/25/17 05:43 MCV 86 fl (79-97) 05/25/17 05:43 MCH 29 pg (28-32) 05/25/17 05:43 MCHC 34 % (30-34) 05/25/17 05:43 RDW 17.7 % (13.2-15.2) H 05/25/17 05:43 Plt Count 275 K/mm3 (140-440) 05/25/17 05:43 Lymph % (Auto) 9.1 % (13.4-35.0) L 05/25/17 05:43 [place] % (Auto) 10.5 % (0.0-7.3) H 05/25/17 05:43 Eos % (Auto) 0.8 % (0.0-4.3) 05/25/17 05:43 Baso % (Auto) 0.6 % (0.0-1.8) 05/25/17 05:43 Lymph # 0.6 K/mm3 (1.2-5.4) L 05/25/17 05:43 [place] # 0.7 K/mm3 (0.0-0.8) 05/25/17 05:43 Eos # 0.1 K/mm3 (0.0-0.4) 05/25/17 05:43 Baso # 0.0 K/mm3 (0.0-0.1) 05/25/17 05:43 Seg Neutrophils % 79.0 % (40.0-70.0) H 05/25/17 05:43 Seg Neutrophils # 5.6 K/mm3 (1.8-7.7) 05/25/17 05:43 Sodium 136 mmol/L (137-145) L 05/25/17 05:43 Potassium 3.8 mmol/L (3.6-5.0) 05/25/17 05:43 Chloride 90.9 mmol/L (98-107) L 05/25/17 05:43 Carbon Dioxide 30 mmol/L (22-30) 05/25/17 05:43 Anion Gap 19 mmol/L 05/25/17 05:43 BUN 30 mg/dL (7-17) H 05/25/17 05:43 Creatinine 6.1 mg/dL (0.7-1.2) H 05/25/17 05:43 Estimated GFR 9 ml/min 05/25/17 05:43 BUN/Creatinine Ratio 4.91 % 05/25/17 05:43 Glucose 119 mg/dL (65-100) H 05/25/17 05:43 Calcium 8.4 mg/dL (8.4-10.2) 05/25/17 05:43 Total Bilirubin 0.20 mg/dL (0.1-1.2) 05/25/17 05:43 AST 11 units/L (5-40) 05/25/17 05:43 ALT 10 units/L (7-56) 05/25/17 05:43 Alkaline Phosphatase 92 units/L (35-129) 05/25/17 05:43 Troponin T 0.410 ng/mL (0.00-0.029) H* 05/24/17 23:00 Total Protein 6.9 g/dL (6.3-8.2) 05/25/17 05:43 Albumin 3.0 g/dL (3.9-5) L 05/25/17 05:43 Albumin/Globulin Ratio 0.8 % 05/25/17 05:43 Triglycerides 102 mg/dL (2-149) 05/24/17 16:00 Cholesterol 143 mg/dL (50-199) 05/24/17 16:00 LDL Cholesterol Direct 74 mg/dL (50-130) 05/24/17 16:00 HDL Cholesterol 49 mg/dL (40-59) 05/24/17 16:00 Cholesterol/HDL Ratio 2.91 % 05/24/17 16:00 Lipase 27 units/L (13-60) 05/24/17 16:00
[2017-05-25] MEDS ORDERED: VANCOMYCIN 2,000 MG in NACL 0.9% 500 ML 500 ML IV ONE (18:00)
[2017-05-25] MEDS ORDERED: VANCOMYCIN/NS 1 GM/250 ML 1 GM/250 ML BAG IV SCH (18:00)
[2017-05-25] MEDS ORDERED: VANCOMYCIN PHARMACY TO DOSE IV SCH (18:00)
[2017-05-26] MEDS: APRESOLINE PO SCH ×4 (00:08→22:54)
[2017-05-26] MEDS: DILAUDID IV PRN ×6 (01:08→22:47)
[2017-05-26] MEDS: ZOFRAN IV PRN ×2 (01:08→12:26)
[2017-05-26] MEDS: ROXICODONE PO SCH ×3 (03:45→22:40)
[2017-05-26] MEDS: CATAPRES PO SCH ×4 (04:03→22:44)
[2017-05-26] MEDS: BENADRYL IV PRN ×3 (04:04→19:51)
[2017-05-26 05:17] LABS: Basophils % (Auto) 0.5 % (0.0-1.8); Eosinophils % (Auto) 1.4 % (0.0-4.3); Hemoglobin 7.5 gm/dl (10.1-14.3); Mean Corpuscular HGB Conc 33 % (30-34); Mean Corpuscular Hemoglobin 29 pg (28-32); Mean Corpuscular Volume 88 fl (79-97); Platelet Count 256 K/mm3 (140-440); Red Blood Count 2.63 M/mm3 (3.65-5.03); Red Cell Distribution Width 17.4 % (13.2-15.2)
[2017-05-26 05:40] LABS: BUN/Creatinine Ratio 4.09; Calcium 7.8 mg/dL (8.4-10.2); Chloride 91.5 mmol/L (98-107); Potassium 3.7 mmol/L (3.6-5.0)
--- NOTE | 2017-05-26 10:43 | Progress Note ---
Assessment and Plan Assessment and plan: -- Right upper extremity cellulitis IV antibiotics, vancomycin , Unasyn ,follow cultures, elevate the limb, ID evaluation --End Stage renal disease on hemodialysis, As per schedule, nephrology following --Malignant hypertension,, Continue current antihypertensives and when necessary medication --Type 2 diabetes mellitus, Accu-Chek sliding scale coverage ADA diet and insulin --Anemia of chronic kidney disease, Closely monitor H&H, Epogen during dialysis , transfuse as needed --Gastroparesis secondary to diabetes mellitus, Supportive care --[id number] protein calorie malnutrition/hypoalbuminemia, Supportive care nutritional supplements --DVT prophylaxis; heparin and renal dose Consults noted appreciated History Interval history: Patient seen and evaluated medical records reviewed No new events reported, patient feels better now complains Hospitalist Physical - Constitutional Vitals: Temp Pulse Resp BP Pulse Ox 98.9 F 92 H 20 180/84 95 05/26/17 07:55 05/26/17 07:55 05/26/17 07:55 05/26/17 07:55 05/26/17 00:00 General appearance: Present: no acute distress, well-nourished - EENT Eyes: Present: PERRL, EOM intact - Neck Neck: Present: supple, normal ROM - Respiratory Respiratory effort: normal Respiratory: negative: rales, rhonchi, wheezing - Cardiovascular Rhythm: regular Heart Sounds: Present: S1 & S2 - Extremities Extremities: abnormal (Cellulitis right upper extremity) - Abdominal General gastrointestinal: soft, non-tender, non-distended, normal bowel sounds - Integumentary Integumentary: Present: clear, warm - Psychiatric Psychiatric: appropriate mood/affect, cooperative - Neurologic Neurologic: CNII-XII intact, moves all extremities Results - Labs CBC & Chem 7: 05/26/17 04:00 05/26/17 04:00 Labs: Laboratory Last Values WBC 7.0 K/mm3 (4.5-11.0) 05/26/17 04:00 RBC 2.63 M/mm3 (3.65-5.03) L 05/26/17 04:00 Hgb 7.5 gm/dl (10.1-14.3) L 05/26/17 04:00 Hct 23.0 % (30.3-42.9) L 05/26/17 04:00 MCV 88 fl (79-97) 05/26/17 04:00 MCH 29 pg (28-32) 05/26/17 04:00 MCHC 33 % (30-34) 05/26/17 04:00 RDW 17.4 % (13.2-15.2) H 05/26/17 04:00 Plt Count 256 K/mm3 (140-440) 05/26/17 04:00 Lymph % (Auto) 9.2 % (13.4-35.0) L 05/26/17 04:00 [place] % (Auto) 8.0 % (0.0-7.3) H 05/26/17 04:00 Eos % (Auto) 1.4 % (0.0-4.3) 05/26/17 04:00 Baso % (Auto) 0.5 % (0.0-1.8) 05/26/17 04:00 Lymph # 0.7 K/mm3 (1.2-5.4) L 05/26/17 04:00 [place] # 0.6 K/mm3 (0.0-0.8) 05/26/17 04:00 Eos # 0.1 K/mm3 (0.0-0.4) 05/26/17 04:00 Baso # 0.0 K/mm3 (0.0-0.1) 05/26/17 04:00 Seg Neutrophils % 80.9 % (40.0-70.0) H 05/26/17 04:00 Seg Neutrophils # 5.7 K/mm3 (1.8-7.7) 05/26/17 04:00 Sodium 132 mmol/L (137-145) L 05/26/17 04:00 Potassium 3.7 mmol/L (3.6-5.0) 05/26/17 04:00 Chloride 91.5 mmol/L (98-107) L 05/26/17 04:00 Carbon Dioxide 26 mmol/L (22-30) 05/26/17 04:00 Anion Gap 18 mmol/L 05/26/17 04:00 BUN 18 mg/dL (7-17) H 05/26/17 04:00 Creatinine 4.4 mg/dL (0.7-1.2) H 05/26/17 04:00 Estimated GFR 14 ml/min 05/26/17 04:00 BUN/Creatinine Ratio 4.09 % 05/26/17 04:00 Glucose 99 mg/dL (65-100) 05/26/17 04:00 POC Glucose 131 (70-105) H 05/26/17 08:38 Calcium 7.8 mg/dL (8.4-10.2) L 05/26/17 04:00 Total Bilirubin 0.20 mg/dL (0.1-1.2) 05/25/17 05:43 AST 11 units/L (5-40) 05/25/17 05:43 ALT 10 units/L (7-56) 05/25/17 05:43 Alkaline Phosphatase 92 units/L (35-129) 05/25/17 05:43 Troponin T 0.410 ng/mL (0.00-0.029) H* 05/24/17 23:00 Total Protein 6.9 g/dL (6.3-8.2) 05/25/17 05:43 Albumin 3.0 g/dL (3.9-5) L 05/25/17 05:43 Albumin/Globulin Ratio 0.8 % 05/25/17 05:43 Triglycerides 102 mg/dL (2-149) 05/24/17 16:00 Cholesterol 143 mg/dL (50-199) 05/24/17 16:00 LDL Cholesterol Direct 74 mg/dL (50-130) 05/24/17 16:00 HDL Cholesterol 49 mg/dL (40-59) 05/24/17 16:00 Cholesterol/HDL Ratio 2.91 % 05/24/17 16:00 Lipase 27 units/L (13-60) 05/24/17 16:00
[2017-05-26] MEDS: UNASYN/NS 3 GM/100 ML 3 GM/100 ML BAG IV SCH (10:57)
[2017-05-26] MEDS: PROTONIX PO SCH ×2 (10:59→22:47)
[2017-05-26] MEDS: NORMODYNE PO SCH ×3 (10:59→22:54)
[2017-05-26] MEDS: NEURONTIN PO SCH ×3 (11:00→22:45)
[2017-05-26] MEDS: PROCARDIA XL PO SCH (11:00)
[2017-05-26] MEDS: CARAFATE PO SCH ×3 (11:00→22:53)
[2017-05-26] MEDS: REGLAN PO SCH ×3 (11:00→22:53)
[2017-05-26] MEDS: COZAAR PO SCH ×2 (11:00→22:45)
[2017-05-26] MEDS: HEPARIN SUB-Q SCH ×2 (11:01→22:40)
--- NOTE | 2017-05-26 11:59 | Query-Infection ---
Sherlyn Rey____Brandon Date:__05/26/17 Flooring Machine Feeder/CDS:____Stuartsara Rey Phone#:___[phone] Exercise your independent professional judgment when responding to this query. Questions asked do not imply a particular answer is desired or expected. We greatly appreciate your clarification on this issue. Clinical Documentation States: 37 year old female was admitted on 05/24/17. The Progress note (05/25/17) states " Assessment and plan: -- Right upper extremity cellulitis IV antibiotics, vancomycin , Unasyn ,follow cultures, elevate the limb " Temperature: 102.2 (05/25/17) Pulse: 106 (05/25/17) Respiratory rate: 22 (05/25/17) Clinical findings show: (please check applicable parameters) Infection, known /suspected, with some of the following indicators; Specify the infection: 3 General parameters [x] Fever (core temp >38.30C or 100.40F) [ ] Hypothermia (core temp <36C) [x] Heart rate >90 bpm [x] Tachypnea: >20 bpm or pCO2 < 32 mmHg [ ] Altered mental status [ ] Significant edema / +ve fluid balance (>20 ml/kg 24 h) [ ] Hyperglycemia (Bl. glucose >110 mg/dl) w/o diabetes Inflammatory parameters [ ] Leukocytosis (white blood cell count >12,000/l) [ ] Leukopenia (white blood cell count <4,000/l) [ ] Bandemia (immature WBC > 10%) [ ] Leucocyte Left Shift [ ] Plasma procalcitonin>2 SD above the normal value Hemodynamic and tissue perfusion parameters [ ] Arterial hypotension(SBP <90 mmHg, MAP <70 mmHg,or a SBP drop >40 mmHg in adults) [ ] Hyperlactatemia (>3 mmol/l) [ ] Anion Gap (> 11mEG/l) [ ] Decreased capillary refill or mottling Organ dysfunction parameters [ ] Arterial hypoxemia (PaO2/FIO2 <300) [ ] Creatinine increase =0.5 mg/dl [ ] Acute oliguria (urine output <0.5 ml | kg |h or 45 mM/l for at least 2 hrs) [ ] Coagulation abnormalities (INR >1.5 or activated partial thromboplastin time >60 s) [ ] Ileus (absent hansa wel sounds) [ ] Thrombocytopenia (platelet count <100,000/l) [ ] Hyperbilirubinemia (plasma total bilirubin >4 mg/dl) According to the clinical indications above, can Bacteremia be further specified? If so, please indicate below and in your Progress Notes and/ or Discharge Summary. Indicate if the condition was present on admission. PHYSICIAN RESPONSE: [ x] Sepsis [ ] Severe Sepsis [ ] Septic Shock [ ] Septicemia [ ] Sepsis now resolved [ ] SIRS due to non-infectious cause with organ dysfunction [ ] SIRS due to non-infectious cause without organ dysfunction [ ] Other: [ ] Comment/Explanation: Present on Admission: [x ] Yes (Y) [ ] Clinically undeterminable (W) [ ] No (N) [ ] Ruled Out Please also document response in your Progress Notes and/or Discharge Summary and indicate if the condition was present on admission Notes: SIRS/ SIRS WITH ORGAN DYSFUNCTION Systemic inflammatory response syndrome (SIRS) generally refers to the systemic response to trauma/bey or other insult such as Acute Myocardial Infarction, Acute Pancreatitis, and Major Surgery with symptoms including fever, tachycardia , tachypnea, and leukocytosis (1). BACTEREMIA Presence of viable bacteria in the circulating blood (2). This term is reserved for patients that do not manifest above SIRS response. SEPTICEMIA Generally refers to a systemic disease associated with the presence of pathological microorganisms or toxins in the blood, which can include bacteria, viruses, fungi or other organisms (1). SEPSIS Generally refers to SIRS due infection (1). SEVERE SEPSIS Generally refers to sepsis associated with acute organ dysfunction (1). SEPTIC SHOCK Generally refers to circulatory failure associated with severe sepsis (2), and defined as hypotension or hypoperfusion despite adequate fluid resuscitation (1 hour) (3). REFERENCES: 1. [employer]/Society of Critical Care Medicine Consensus Conference. Definitions for sepsis and organ failure and guidelines for the use of innovative therapies in sepsis. Critical Care Med 1992;20:864 - 74. 2. Byron gutierrez MM, Beltran MP, Anibal RAJAT, Nato Hoffman, Miguel A D, Saad D, John J, Hatch SM , Rock JL, Sanjiv G; International Sepsis Definitions Conference. 2001 SCCM/ESICM/ACCP/ATS/SIS International Sepsis Definitions Conference. Intensive Care Med. 2002;29(4):530-8. Epub 2002Jan 11. Review. PubMed PMID:[id number] 3. ICD-9-CM Official Guidelines for Coding and Reporting 4. Medscape Drugs, Diseases and Procedures references 5. [employer] Textbook of Internal Medicine. 18th Edition MTDD
--- NOTE | 2017-05-26 13:47 | Progress Note ---
Assessment and Plan (1) ESRD on hemodialysis Current Visit: Yes Status: Chronic Plan to address problem: Next HD on Tuesday (2)Accelerated hypertension Current Visit: Yes Status: Acute Plan to address problem: Resumed her oral antihypertensives, increased her clonidine to 0.2 TID IV hydrazine for SBP> 160 (3) Gastroparesis due to DM with exacerbation Current Visit: Yes Status: Acute Plan to address problem: Continues to have abdominal pain N and V Reglan prn Consider GI consult for further eval and management (4) Anemia in chronic kidney disease Current Visit: No Status: Acute Qualifiers: Chronic kidney disease stage: C Plan to address problem: Epogen on dialysis (5) 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 Objective - Vital Signs Vital signs: Vital Signs - 12hr 05/26/17 05/26/17 05/26/17 03:45 04:01 04:03 Temperature 99.3 F Pulse Rate 95 H 95 H Respiratory 20 19 19 Rate Blood Pressure 177/93 177/93 O2 Sat by Pulse Oximetry 05/26/17 05/26/17 05/26/17 04:33 07:55 11:11 Temperature 98.9 F Pulse Rate 92 H Respiratory 20 20 Rate Blood Pressure 180/84 O2 Sat by Pulse 99 Oximetry 05/26/17 11:15 Temperature 99.4 F Pulse Rate 101 H Respiratory 18 Rate Blood Pressure 186/88 O2 Sat by Pulse Oximetry - General Appearance General appearance: well-developed, well-nourished, appears stated age EENT: PERRL, mucous membranes moist Neck: no JVD, no thyromegaly, no carotid bruit, supple Respiratory: Present: Clear to Ascultation. Absent: Normal Exam Cardiology: regular, normal heart rate, S1S2, no murmurs Gastrointestinal: normoactive bowel sounds, no tenderness Integumentary: no rash, warm and dry Neurologic: no focal deficit, alert and oriented x3, reflexes 2+ and symmetric, gait normal, strength 5/5 Musculoskeletal: no deformities, no erythema, no cyanosis, no clubbing Psychiatric: mood/affect appropriate, cooperative - Lab 05/26/17 04:00 05/26/17 04:00 Most recent lab results Calcium 7.8 mg/dL (8.4-10.2) L 05/26/17 04:00
[2017-05-27] MEDS: BENADRYL IV PRN ×3 (02:12→21:11)
[2017-05-27] MEDS: DILAUDID IV PRN ×6 (02:12→21:11)
[2017-05-27] MEDS: ROXICODONE PO SCH ×3 (05:24→20:47)
[2017-05-27] MEDS: CATAPRES PO SCH ×2 (07:10→17:52)
[2017-05-27] MEDS: NORMODYNE PO SCH ×3 (09:08→20:48)
[2017-05-27] MEDS: REGLAN PO SCH ×3 (09:08→20:48)
[2017-05-27] MEDS: CARAFATE PO SCH ×3 (09:09→20:48)
[2017-05-27] MEDS: NEURONTIN PO SCH ×3 (09:09→20:48)
[2017-05-27] MEDS: APRESOLINE PO SCH ×3 (09:09→20:48)
[2017-05-27] MEDS ORDERED: NACL 0.9% 100 ML IV PRN (09:13)
--- NOTE | 2017-05-27 09:13 | Progress Note ---
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 She feels better. No fever, chills. She c/o pain at the distal end of her AVF Objective - Vital Signs Vital signs: Vital Signs - 12hr 05/26/17 05/26/17 05/26/17 22:00 22:40 22:47 Temperature Pulse Rate Pulse Rate [ 80 Left Radial] Respiratory 18 18 18 Rate Respiratory 18 Rate [ epigastric] Blood Pressure O2 Sat by Pulse Oximetry 05/26/17 05/26/17 05/27/17 22:54 23:17 00:00 Temperature 99.2 F Pulse Rate 82 89 Pulse Rate [ Left Radial] Respiratory 18 20 Rate Respiratory Rate [ epigastric] Blood Pressure 139/79 145/91 O2 Sat by Pulse 98 Oximetry 05/27/17 05/27/17 05/27/17 02:12 02:42 05:01 Temperature 99.5 F Pulse Rate 69 Pulse Rate [ Left Radial] Respiratory 18 18 20 Rate Respiratory Rate [ epigastric] Blood Pressure 143/76 O2 Sat by Pulse 95 Oximetry 05/27/17 05/27/17 05/27/17 05:24 05:54 07:10 Temperature Pulse Rate 69 Pulse Rate [ Left Radial] Respiratory 18 18 Rate Respiratory Rate [ epigastric] Blood Pressure 143/76 O2 Sat by Pulse Oximetry 05/27/17 08:00 Temperature 98.2 F Pulse Rate 81 Pulse Rate [ Left Radial] Respiratory 20 Rate Respiratory Rate [ epigastric] Blood Pressure 150/84 O2 Sat by Pulse 98 Oximetry - General Appearance General appearance: well-developed, well-nourished, appears stated age EENT: PERRL, mucous membranes moist Neck: no JVD, no thyromegaly, no carotid bruit, supple Respiratory: Present: Clear to Ascultation, Other (no wheezing ) Cardiology: regular, normal heart rate, S1S2, no murmurs Gastrointestinal: normoactive bowel sounds, no tenderness Integumentary: no rash, warm and dry Neurologic: no focal deficit, alert and oriented x3, reflexes 2+ and symmetric, gait normal, strength 5/5 Musculoskeletal: no deformities, no erythema, no cyanosis, no clubbing Psychiatric: mood/affect appropriate, cooperative - Lab 05/26/17 04:00 05/26/17 04:00 Most recent lab results Calcium 7.8 mg/dL (8.4-10.2) L 05/26/17 04:00
--- NOTE | 2017-05-27 11:00 | Consultation ---
History of Present Illness - Reason for Consult Consult date: 05/27/17 Cellulitis/ Infected Vascath Requesting physician: FORD CHAVEZ - History of Present Illness Ms. Brownlee is a 37-year-old woman with ESRD on HD via a right arm AV fistula. She also has a right subclavian port. She is noted to have pain and edema around the AV fistula site. She was febrile to > 102 deg F earlier during this admission. There have been no issues accessing or using the fistula. She is prescribed Vancomycin and Unasyn empirically. ID consultation is requested for treatment recommendations. Past History Past Medical History: ESRD, hypertension Past Surgical History: Other (port; AV fistula) Family history: hypertension Medications and Allergies Allergies Allergy/AdvReac Type Severity Reaction Status Date / Time acetaminophen [From Percocet] Allergy Itching Verified 04/04/17 03:32 lisinopril Allergy Shortness Verified 04/04/17 03:32 of Breath oxycodone HCl [From Percocet] Allergy Itching Verified 04/04/17 03:32 Penicillins Allergy Hives Verified 04/04/17 03:32 morphine AdvReac Anaphylaxis Verified 04/04/17 03:32 Home Medications Medication Instructions Recorded Confirmed Last Taken Type Metoprolol [Lopressor TAB] 100 mg PO TID #90 tablet 03/06/17 05/24/17 05/24/17 Rx hydrALAZINE [Apresoline TAB] 100 mg PO TID #90 tab 03/06/17 05/24/17 05/24/17 Rx Pantoprazole [Protonix TAB] 40 mg PO BID #20 tablet 04/12/17 05/24/17 05/05/17 07:00 Rx Cefuroxime [Ceftin] 250 mg PO QPM 05/24/17 05/24/17 Unknown History Cyclobenzaprine HCl [Flexeril 5 MG 10 mg PO BID PRN 05/24/17 05/24/17 Unknown History TAB] Dicyclomine [Bentyl] 20 mg PO QID PRN 05/24/17 05/24/17 Unknown History Gabapentin [Neurontin] 100 mg PO TID 05/24/17 05/24/17 05/24/17 History Labetalol HCl [Labetalol HCl] 300 mg PO TID 05/24/17 05/24/17 05/24/17 History Losartan [Cozaar] 100 mg PO BID 05/24/17 05/24/17 05/24/17 History Metoclopramide [Reglan TAB] 10 mg PO TID 05/24/17 05/24/17 05/24/17 History NIFEdipine XL [Procardia Xl] 90 mg PO QDAY 05/24/17 05/24/17 Unknown History Oxycodone HCl [Roxicodone TAB] 30 mg PO QID 05/24/17 05/24/17 Unknown History Promethazine [Phenergan TAB] 25 mg PO Q6H PRN 05/24/17 05/24/17 Unknown History Sucralfate [Carafate] 1 gm PO TID 05/24/17 05/24/17 05/24/17 History SUMAtriptan SUCCINATE [Imitrex] 50 mg PO PRN PRN 05/26/17 05/26/17 Unknown History Active Meds: Active Medications Acetaminophen (Tylenol) 650 mg PO Q4H PRN PRN Reason: Pain MILD(1-3)/Fever >100.5/CRUZ Last Admin: 05/25/17 17:08 Dose: 650 mg Bisacodyl (Dulcolax) 10 mg MT QDAY PRN PRN Reason: Constipation unrelieved by MOM Clonidine HCl (Catapres) 0.2 mg PO Q8H [facility] Last Admin: 05/27/17 07:10 Dose: 0.2 mg Cyclobenzaprine HCl (Flexeril) 10 mg PO BID PRN PRN Reason: Muscle Spasm Dicyclomine HCl (Bentyl) 20 mg PO QID PRN PRN Reason: Pain Diphenhydramine HCl (Benadryl) 25 mg IV Q6H PRN PRN Reason: Itching Last Admin: 05/27/17 09:08 Dose: 25 mg Epoetin Armando (Epogen) 20,000 unit IV CELENA PRN PRN Reason: hemodialysis Last Admin: 05/25/17 15:31 Dose: 20,000 unit Gabapentin (Neurontin) 100 mg PO TID [facility] Last Admin: 05/27/17 09:09 Dose: 100 mg Heparin Sodium (Porcine) (Heparin) 5,000 unit SUB-Q Q12HR [facility] Last Admin: 05/26/17 22:40 Dose: Not Given Hydralazine HCl (Apresoline) 100 mg PO TID [facility] Last Admin: 05/27/17 09:09 Dose: 100 mg Hydromorphone HCl (Dilaudid) 1 mg IV Q3H PRN PRN Reason: Pain , Severe (7-10) Last Admin: 05/27/17 09:09 Dose: 1 mg Sodium Chloride (Nacl 0.9%) 100 mls @ 999 mls/hr IV CELENA PRN PRN Reason: Hypotension Sodium Chloride (Nacl 0.9%) 100 mls @ 999 mls/hr IV CELENA PRN PRN Reason: Hypotension Ampicillin Sodium/Sulbactam Sodium (Unasyn/Ns 3 Gm/100 Ml) 3 gm in 100 mls @ 100 mls/hr IV Q24HR GABRIELLA PRN Reason: Protocol Last Admin: 05/26/17 10:57 Dose: 100 mls/hr Sodium Chloride (Nacl 0.9%) 100 mls @ 999 mls/hr IV CELENA PRN PRN Reason: Hypotension Labetalol HCl (Normodyne) 300 mg PO TID [facility] Last Admin: 05/27/17 09:08 Dose: 300 mg Losartan Potassium (Cozaar) 100 mg PO BID [facility] Last Admin: 05/26/17 22:45 Dose: Not Given Magnesium Hydroxide (Milk Of Magnesia) 30 ml PO Q4H PRN PRN Reason: Constipation Metoclopramide HCl (Reglan) 10 mg PO TID [facility] Last Admin: 05/27/17 09:08 Dose: 10 mg Nifedipine (Procardia Xl) 90 mg PO QDAY [facility] Last Admin: 05/26/17 11:00 Dose: 90 mg Ondansetron HCl (Zofran) 4 mg IV Q8H PRN PRN Reason: N/V unrelieved by Reglan Last Admin: 05/26/17 12:26 Dose: 4 mg Oxycodone HCl (Roxicodone) 30 mg PO Q8H [facility] Last Admin: 05/27/17 05:24 Dose: Not Given Pantoprazole Sodium (Protonix) 40 mg PO BID [facility] Last Admin: 05/26/17 22:47 Dose: 40 mg Promethazine HCl (Phenergan) 25 mg PO Q6H PRN PRN Reason: Nausea Sucralfate (Carafate) 1 gm PO TID [facility] Last Admin: 05/27/17 09:09 Dose: 1 gm Vancomycin HCl (Vancomycin Pharmacy To Dose) 1 each IV PKCONSULT GABRIELLA PRN Reason: Protocol Review of Systems All systems: negative Constitutional: fever, no chills, no sweats, no weakness Cardiovascular: no chest pain, no shortness of breath Respiratory: no cough, no shortness of breath Gastrointestinal: no abdominal pain, no nausea, no vomiting, no diarrhea Musculoskeletal: other (right arm pain/ swelling) Integumentary: no rash, no pruritis Physical Examination - Constitutional Vitals: Vital Signs Temp Pulse Resp BP Pulse Ox 98.8 F 77 20 160/85 98 05/27/17 09:45 05/27/17 10:30 05/27/17 09:45 05/27/17 10:30 05/27/17 08:00 Temperature -Last 24 Hours Temperature 98.8 F Temperature 98.2 F Temperature 99.5 F Temperature 99.2 F Temperature 98.3 F Temperature 99.4 F Temperature 99.4 F General appearance: Present: no acute distress, other (non-toxic appearance) - Neck Neck: Present: supple - Respiratory Respiratory: bilateral: CTA, negative: rales - Cardiovascular Rhythm: regular Heart Sounds: Present: S1 & S2 - Extremities Extremities: No edema (there is an area of fullness distal to the AV fistula, otherwise there is no significant edema of the right arm, the AV fistula is presently in use) - Abdominal General gastrointestinal: Present: soft, non-distended - Integumentary Integumentary: Present: clear. Absent: rash - Additional findings Additional findings: port at right subclavian area without signs of infection Results - Labs CBC & Chem 7: 05/26/17 04:00 05/26/17 04:00 Labs: Abnormal lab results 05/26/17 05/26/17 05/26/17 Range/Units 11:58 17:09 21:23 POC Glucose 133 H 129 H 115 H (70-105) 05/27/17 Range/Units 08:37 POC Glucose 162 H (70-105) Microbiology 05/25/17 18:43 Peripheral/Venous Blood Culture - Preliminary NO GROWTH AFTER 24 HOURS 05/25/17 18:15 Peripheral/Venous Blood Culture - Preliminary NO GROWTH AFTER 24 HOURS - Imaging and Cardiology Chest x-ray: report reviewed (unremarkable AP chest) Assessment and Plan - Patient Problems (1) Cellulitis of right upper extremity Current Visit: Yes Status: Acute Plan to address problem: 1. No clinical evidence of an infectious process at the AV fistula or port. 2. Given patient's history of AV thrombus, will obtain a CT right arm to determine if an abscess or clot is present. 3. Blood culture remains negative.
[2017-05-27] MEDS ORDERED: NACL 0.9 (PRIMING MACHINE ONLY DIALYSIS) MC ONE (12:04)
--- NOTE | 2017-05-27 17:01 | Consultation ---
History of Present Illness - Reason for Consult Consult date: 05/27/17 - History of Present Illness This is a 37-year-old female with end-stage renal disease, she is seen in consult for pain in the region of her AV fistula. She had a right brachial basilic AV fistula created approximately 2-1/[address] Charlton[address] She has had one intervention upon the fistula in the last year, at which time balloon angioplasty was performed for several regions of stenosis. More recently, she has been experiencing continuous tenderness along the distal aspect of the fistula, regardless of whether it is cannulated or not. She also reports a fever of up to 102 2 days ago. She is dialyzed Tuesday, her last dialysis session was today, which was successful. Past History Past Medical History: ESRD, hypertension Past Surgical History: Other (port; AV fistula) Family history: hypertension Medications and Allergies Allergies Allergy/AdvReac Type Severity Reaction Status Date / Time acetaminophen [From Percocet] Allergy Itching Verified 04/04/17 03:32 lisinopril Allergy Shortness Verified 04/04/17 03:32 of Breath oxycodone HCl [From Percocet] Allergy Itching Verified 04/04/17 03:32 Penicillins Allergy Hives Verified 04/04/17 03:32 morphine AdvReac Anaphylaxis Verified 04/04/17 03:32 Home Medications Medication Instructions Recorded Confirmed Last Taken Type Metoprolol [Lopressor TAB] 100 mg PO TID #90 tablet 03/06/17 05/24/17 05/24/17 Rx hydrALAZINE [Apresoline TAB] 100 mg PO TID #90 tab 03/06/17 05/24/17 05/24/17 Rx Pantoprazole [Protonix TAB] 40 mg PO BID #20 tablet 04/12/17 05/24/17 05/05/17 07:00 Rx Cefuroxime [Ceftin] 250 mg PO QPM 05/24/17 05/24/17 Unknown History Cyclobenzaprine HCl [Flexeril 5 MG 10 mg PO BID PRN 05/24/17 05/24/17 Unknown History TAB] Dicyclomine [Bentyl] 20 mg PO QID PRN 05/24/17 05/24/17 Unknown History Gabapentin [Neurontin] 100 mg PO TID 05/24/17 05/24/17 05/24/17 History Labetalol HCl [Labetalol HCl] 300 mg PO TID 05/24/17 05/24/17 05/24/17 History Losartan [Cozaar] 100 mg PO BID 05/24/17 05/24/17 05/24/17 History Metoclopramide [Reglan TAB] 10 mg PO TID 05/24/17 05/24/17 05/24/17 History NIFEdipine XL [Procardia Xl] 90 mg PO QDAY 05/24/17 05/24/17 Unknown History Oxycodone HCl [Roxicodone TAB] 30 mg PO QID 05/24/17 05/24/17 Unknown History Promethazine [Phenergan TAB] 25 mg PO Q6H PRN 05/24/17 05/24/17 Unknown History Sucralfate [Carafate] 1 gm PO TID 05/24/17 05/24/17 05/24/17 History SUMAtriptan SUCCINATE [Imitrex] 50 mg PO PRN PRN 05/26/17 05/26/17 Unknown History Active Meds: Active Medications Acetaminophen (Tylenol) 650 mg PO Q4H PRN PRN Reason: Pain MILD(1-3)/Fever >100.5/CRUZ Last Admin: 05/25/17 17:08 Dose: 650 mg Bisacodyl (Dulcolax) 10 mg [place] QDAY PRN PRN Reason: Constipation unrelieved by MOM Clonidine HCl (Catapres) 0.2 mg PO Q8H [facility] Last Admin: 05/27/17 07:10 Dose: 0.2 mg Cyclobenzaprine HCl (Flexeril) 10 mg PO BID PRN PRN Reason: Muscle Spasm Dicyclomine HCl (Bentyl) 20 mg PO QID PRN PRN Reason: Pain Diphenhydramine HCl (Benadryl) 25 mg IV Q6H PRN PRN Reason: Itching Last Admin: 05/27/17 09:08 Dose: 25 mg Epoetin Armando (Epogen) 20,000 unit IV CELENA PRN PRN Reason: hemodialysis Last Admin: 05/27/17 12:12 Dose: 20,000 unit Gabapentin (Neurontin) 100 mg PO TID [facility] Last Admin: 05/27/17 14:40 Dose: 100 mg Heparin Sodium (Porcine) (Heparin) 5,000 unit SUB-Q Q12HR [facility] Last Admin: 05/26/17 22:40 Dose: Not Given Hydralazine HCl (Apresoline) 100 mg PO TID [facility] Last Admin: 05/27/17 14:40 Dose: 100 mg Hydromorphone HCl (Dilaudid) 1 mg IV Q3H PRN PRN Reason: Pain , Severe (7-10) Last Admin: 05/27/17 14:39 Dose: 1 mg Sodium Chloride (Nacl 0.9%) 100 mls @ 999 mls/hr IV CELENA PRN PRN Reason: Hypotension Sodium Chloride (Nacl 0.9%) 100 mls @ 999 mls/hr IV CELENA PRN PRN Reason: Hypotension Ampicillin Sodium/Sulbactam Sodium (Unasyn/Ns 3 Gm/100 Ml) 3 gm in 100 mls @ 100 mls/hr IV Q24HR GABRIELLA PRN Reason: Protocol Last Admin: 05/26/17 10:57 Dose: 100 mls/hr Sodium Chloride (Nacl 0.9%) 100 mls @ 999 mls/hr IV CELENA PRN PRN Reason: Hypotension Labetalol HCl (Normodyne) 300 mg PO TID [facility] Last Admin: 05/27/17 14:40 Dose: 300 mg Losartan Potassium (Cozaar) 100 mg PO BID [facility] Last Admin: 05/26/17 22:45 Dose: Not Given Magnesium Hydroxide (Milk Of Magnesia) 30 ml PO Q4H PRN PRN Reason: Constipation Metoclopramide HCl (Reglan) 10 mg PO TID [facility] Last Admin: 05/27/17 14:41 Dose: 10 mg Nifedipine (Procardia Xl) 90 mg PO QDAY [facility] Last Admin: 05/26/17 11:00 Dose: 90 mg Ondansetron HCl (Zofran) 4 mg IV Q8H PRN PRN Reason: N/V unrelieved by Reglan Last Admin: 05/26/17 12:26 Dose: 4 mg Oxycodone HCl (Roxicodone) 30 mg PO Q8H [facility] Last Admin: 05/27/17 05:24 Dose: Not Given Pantoprazole Sodium (Protonix) 40 mg PO BID [facility] Last Admin: 05/26/17 22:47 Dose: 40 mg Promethazine HCl (Phenergan) 25 mg PO Q6H PRN PRN Reason: Nausea Sucralfate (Carafate) 1 gm PO TID [facility] Last Admin: 05/27/17 14:40 Dose: 1 gm Vancomycin HCl (Vancomycin Pharmacy To Dose) 1 each IV PKCONSULT [facility] PRN Reason: Protocol Exam - Constitutional Vitals: Temp Pulse Resp BP Pulse Ox 99.0 F 83 20 180/87 96 05/27/17 13:41 05/27/17 13:41 05/27/17 13:41 05/27/17 13:41 05/27/17 10:00 General appearance: Present: no acute distress, well-nourished - EENT Eyes: Present: PERRL ENT: hearing intact, clear oral mucosa - Respiratory Respiratory effort: normal - Extremities Extremity abnormal: other (there is a brisk thrill along the entire fistula. The peripheral aspect of the fistula is somewhat dilated and tender to palpation. There is no evidence of erythema or induration in this area. There is a palpable right radial pulse.) Results - Labs CBC & Chem 7: 05/26/17 04:00 05/26/17 04:00 Labs: Abnormal lab results 05/26/17 05/26/17 05/27/17 Range/Units 17:09 21:23 08:37 POC Glucose 129 H 115 H 162 H (70-105) Assessment and Plan Based on her exam, and the fact that she had successful dialysis today, no acute intervention is required at this time. She has likely developed recurrent stenosis in the central veins or in the more central aspect of the basilic vein. We will set her up for a fistulogram on Tuesday in order to evaluate flow and perform possible angioplasty.
[2017-05-27] MEDS: COZAAR PO SCH ×2 (17:11→23:50)
[2017-05-27] MEDS: PROCARDIA XL PO SCH (17:12)
[2017-05-27] MEDS: UNASYN/NS 3 GM/100 ML 3 GM/100 ML BAG IV SCH (17:12)
[2017-05-27] MEDS: PROTONIX PO SCH ×2 (17:12→23:49)
[2017-05-27] MEDS: HEPARIN SUB-Q SCH ×2 (17:12→23:49)
--- NOTE | 2017-05-27 18:24 | Progress Note ---
Assessment and Plan Assessment and plan: --Cellulitis right upper extremity; Able to tolerate hemodialysis through the AV fistula Continue current antibiotics, CT right arm to evaluate for abscess versus thrombus ID, vascular, nephrology following, follow cultures --Sepsis; secondary to cellulitis right upper extremity, continue IV antibiotics follow cultures --End Stage renal disease on hemodialysis, As per schedule, nephrology following --Malignant hypertension,, Continue current antihypertensives and when necessary medication --Type 2 diabetes mellitus, Accu-Chek sliding scale coverage ADA diet and insulin --Anemia of chronic kidney disease, Closely monitor H&H, Epogen during dialysis , transfuse as needed --Gastroparesis secondary to diabetes mellitus, Supportive care --[id number] protein calorie malnutrition/hypoalbuminemia, Supportive care nutritional supplements --DVT prophylaxis; heparin and renal dose Consults noted appreciated Plan of care discussed with the patient and her nurse History Interval history: Patient seen and evaluated medical records reviewed No new events reported by the nursing staff No new complaints Hospitalist Physical - Constitutional Vitals: Temp Pulse Resp BP Pulse Ox 98.4 F 87 20 142/81 90 05/27/17 16:30 05/27/17 16:30 05/27/17 16:30 05/27/17 16:30 05/27/17 16:30 General appearance: Present: no acute distress, well-nourished - EENT Eyes: Present: PERRL, EOM intact - Neck Neck: Present: supple, normal ROM - Respiratory Respiratory effort: normal Respiratory: negative: rales, rhonchi, wheezing - Cardiovascular Rhythm: regular Heart Sounds: Present: S1 & S2 - Extremities Extremities: no ischemia, No edema, abnormal (cellulitis right upper extremity) Peripheral Pulses: within normal limits - Abdominal General gastrointestinal: soft, non-tender, non-distended, normal bowel sounds - Integumentary Integumentary: Present: clear, warm - Psychiatric Psychiatric: appropriate mood/affect, cooperative - Neurologic Neurologic: CNII-XII intact, moves all extremities Results - Labs CBC & Chem 7: 05/26/17 04:00 05/26/17 04:00 Labs: Laboratory Last Values WBC 7.0 K/mm3 (4.5-11.0) 05/26/17 04:00 RBC 2.63 M/mm3 (3.65-5.03) L 05/26/17 04:00 Hgb 7.5 gm/dl (10.1-14.3) L 05/26/17 04:00 Hct 23.0 % (30.3-42.9) L 05/26/17 04:00 MCV 88 fl (79-97) 05/26/17 04:00 MCH 29 pg (28-32) 05/26/17 04:00 MCHC 33 % (30-34) 05/26/17 04:00 RDW 17.4 % (13.2-15.2) H 05/26/17 04:00 Plt Count 256 K/mm3 (140-440) 05/26/17 04:00 Lymph % (Auto) 9.2 % (13.4-35.0) L 05/26/17 04:00 [place] % (Auto) 8.0 % (0.0-7.3) H 05/26/17 04:00 Eos % (Auto) 1.4 % (0.0-4.3) 05/26/17 04:00 Baso % (Auto) 0.5 % (0.0-1.8) 05/26/17 04:00 Lymph # 0.7 K/mm3 (1.2-5.4) L 05/26/17 04:00 [place] # 0.6 K/mm3 (0.0-0.8) 05/26/17 04:00 Eos # 0.1 K/mm3 (0.0-0.4) 05/26/17 04:00 Baso # 0.0 K/mm3 (0.0-0.1) 05/26/17 04:00 Seg Neutrophils % 80.9 % (40.0-70.0) H 05/26/17 04:00 Seg Neutrophils # 5.7 K/mm3 (1.8-7.7) 05/26/17 04:00 Sodium 132 mmol/L (137-145) L 05/26/17 04:00 Potassium 3.7 mmol/L (3.6-5.0) 05/26/17 04:00 Chloride 91.5 mmol/L (98-107) L 05/26/17 04:00 Carbon Dioxide 26 mmol/L (22-30) 05/26/17 04:00 Anion Gap 18 mmol/L 05/26/17 04:00 BUN 18 mg/dL (7-17) H 05/26/17 04:00 Creatinine 4.4 mg/dL (0.7-1.2) H 05/26/17 04:00 Estimated GFR 14 ml/min 05/26/17 04:00 BUN/Creatinine Ratio 4.09 % 05/26/17 04:00 Glucose 99 mg/dL (65-100) 05/26/17 04:00 POC Glucose 162 (70-105) H 05/27/17 08:37 Calcium 7.8 mg/dL (8.4-10.2) L 05/26/17 04:00 Total Bilirubin 0.20 mg/dL (0.1-1.2) 05/25/17 05:43 AST 11 units/L (5-40) 05/25/17 05:43 ALT 10 units/L (7-56) 05/25/17 05:43 Alkaline Phosphatase 92 units/L (35-129) 05/25/17 05:43 Troponin T 0.410 ng/mL (0.00-0.029) H* 05/24/17 23:00 Total Protein 6.9 g/dL (6.3-8.2) 05/25/17 05:43 Albumin 3.0 g/dL (3.9-5) L 05/25/17 05:43 Albumin/Globulin Ratio 0.8 % 05/25/17 05:43 Triglycerides 102 mg/dL (2-149) 05/24/17 16:00 Cholesterol 143 mg/dL (50-199) 05/24/17 16:00 LDL Cholesterol Direct 74 mg/dL (50-130) 05/24/17 16:00 HDL Cholesterol 49 mg/dL (40-59) 05/24/17 16:00 Cholesterol/HDL Ratio 2.91 % 05/24/17 16:00 Lipase 27 units/L (13-60) 05/24/17 16:00 Random Vancomycin 24.0 ug/mL (0-40.0) 05/27/17 05:00
[2017-05-28] MEDS: DILAUDID IV PRN ×8 (00:17→23:49)
[2017-05-28] MEDS: ZOFRAN IV PRN ×2 (00:25→09:36)
[2017-05-28] MEDS: CATAPRES PO SCH ×3 (02:16→14:42)
[2017-05-28] MEDS: ROXICODONE PO SCH ×3 (03:00→19:37)
[2017-05-28] MEDS: BENADRYL IV PRN ×4 (04:50→23:49)
[2017-05-28] MEDS: REGLAN PO SCH ×3 (09:21→20:44)
[2017-05-28] MEDS: COZAAR PO SCH ×2 (09:22→23:50)
[2017-05-28] MEDS: PROTONIX PO SCH ×2 (09:23→23:51)
[2017-05-28] MEDS: NEURONTIN PO SCH ×3 (09:23→20:45)
[2017-05-28] MEDS: CARAFATE PO SCH ×3 (09:23→20:44)
[2017-05-28] MEDS: NORMODYNE PO SCH ×3 (09:23→20:44)
[2017-05-28] MEDS: APRESOLINE PO SCH ×3 (09:24→20:44)
[2017-05-28] MEDS: PROCARDIA XL PO SCH (09:24)
[2017-05-28] MEDS: HEPARIN SUB-Q SCH ×2 (09:47→23:00)
[2017-05-28] MEDS: UNASYN/NS 3 GM/100 ML 3 GM/100 ML BAG IV SCH (09:47)
--- NOTE | 2017-05-28 10:05 | Cat Scan Report ---
FINAL REPORT EXAM: CT UPPER EXTREM RT W CON HISTORY: Right Arm Swelling; Fever TECHNIQUE: CT of the right upper extremity performed. PRIORS: None. FINDINGS: There is an AV fistula in the right upper extremity subcutaneously. Its caliber is large measuring up to 2.5cm diameter at the level of mid upper arm. Its wall is thickened and somewhat irregular. There is some stranding in the surrounding fat. There is no focal vascular thrombus seen. There is, however, a focal area of relative narrowing in the region just below its largest diameter. Specifically, lumen focally decreases to 7 mm and this is area. Anastomosis above the elbow is patent. Central anastomosis also patent. IMPRESSION: Large caliber AV fistula graft demonstrating irregular wall thickening. There is some mild stranding in the fat surrounding the fistula at the level of the mid to distal upper arm. This suggest inflammation. Suspect focal area of stenosis in the mid to distal upper arm. Diameter of the lumen in this location measures about 7 mm as compared to largest diameter of 2.5 cm.
--- NOTE | 2017-05-28 10:50 | Ultrasound Report ---
Sonogram right upper extremity: History: AV fistula right upper extremity, possible abscess. Findings: There is subcutaneous AV fistula noted. There is edema noted around fistula however no abscess formation is seen. No vascular thrombus identified. Impression: Findings as detailed above
--- NOTE | 2017-05-28 13:31 | Progress Note ---
Assessment and Plan - Patient Problems (1) End stage renal disease Current Visit: Yes Status: Chronic Plan to address problem: cont HD on MWF schedule (2) Accelerated hypertension Current Visit: No Status: Acute Plan to address problem: Transitioned to oral antihypertensives, BP improved after clonidine increased to 0.2 TID (3) Gastroparesis due to DM Current Visit: No Status: Chronic Plan to address problem: Reglan prn (4) Anemia in chronic kidney disease Current Visit: No Status: Chronic Qualifiers: Chronic kidney disease stage: C Plan to address problem: Epogen on dialysis (5) T2DM (type 2 diabetes mellitus) Current Visit: No Status: Chronic Qualifiers: Diabetes mellitus complication status: with kidney complications Diabetes mellitus complication detail: D Diabetic retinopathy severity: D Proliferative retinopathy type: P Diabetes mellitus macular edema: D 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 Pt likely developed recurrent stenosis in the central veins or in the more central aspect of the basilic vein. Awaiting fistulogram on Tuesday Subjective Date of service: 05/28/17 Principal diagnosis: ESRD Interval history: Pt awake, alert, in NAD Objective - Vital Signs Vital signs: Vital Signs - 12hr 05/28/17 05/28/17 05/28/17 02:16 03:00 03:38 Temperature Pulse Rate 82 82 Respiratory 18 Rate Respiratory Rate [ epigastric] Blood Pressure 140/78 O2 Sat by Pulse Oximetry 05/28/17 05/28/17 05/28/17 04:50 04:51 05:21 Temperature 97.6 F Pulse Rate 84 Respiratory 18 20 1 L Rate Respiratory Rate [ epigastric] Blood Pressure 138/77 O2 Sat by Pulse 94 Oximetry 05/28/17 05/28/17 05/28/17 06:43 07:30 09:22 Temperature 98.4 F Pulse Rate 81 78 78 Respiratory 20 Rate Respiratory Rate [ epigastric] Blood Pressure 175/89 168/84 168/84 O2 Sat by Pulse 90 Oximetry 05/28/17 05/28/17 10:00 12:00 Temperature 98.0 F Pulse Rate 79 Respiratory 20 Rate Respiratory 18 Rate [ epigastric] Blood Pressure 161/85 O2 Sat by Pulse 94 98 Oximetry - General Appearance General appearance: well-developed, well-nourished, appears stated age EENT: ATNC, PERRL, mucous membranes moist Neck: no JVD Respiratory: Present: Clear to Ascultation Cardiology: regular, S1S2 Gastrointestinal: normoactive bowel sounds Integumentary: no rash, other (no edema ) Neurologic: no focal deficit, alert and oriented x3, strength 5/5, CN 3-12 intact Psychiatric: mood/affect appropriate, cooperative - Lab 05/26/17 04:00 05/26/17 04:00 Most recent lab results Calcium 7.8 mg/dL (8.4-10.2) L 05/26/17 04:00
--- NOTE | 2017-05-28 17:15 | Progress Note ---
Assessment and Plan Assessment and plan: --Sepsis; secondary to cellulitis right upper extremity, continue IV antibiotics follow cultures --Cellulitis right upper extremity; Able to tolerate hemodialysis through the AV fistula Continue current antibiotics, CT right arm to evaluate for abscess versus thrombus ID, vascular, nephrology following, follow cultures --End Stage renal disease on hemodialysis, As per schedule, nephrology following --Malignant hypertension,, Continue current antihypertensives and when necessary medication --Type 2 diabetes mellitus, Accu-Chek sliding scale coverage ADA diet and insulin --Anemia of chronic kidney disease, Closely monitor H&H, Epogen during dialysis , transfuse as needed --Gastroparesis secondary to diabetes mellitus, Supportive care --[id number] protein calorie malnutrition/hypoalbuminemia, Supportive care nutritional supplements --DVT prophylaxis; heparin and renal dose Consults noted appreciated Plan of care discussed with the patient and her nurse History Interval history: Patient seen and evaluated in medical records reviewed Patient feels slightly better no new complaints Vital signs stable Hospitalist Physical - Constitutional Vitals: Temp Pulse Resp BP Pulse Ox 98.0 F 79 20 161/85 98 05/28/17 12:00 05/28/17 12:00 05/28/17 12:07 05/28/17 12:00 05/28/17 12:00 General appearance: Present: no acute distress, well-nourished - EENT Eyes: Present: PERRL, EOM intact - Neck Neck: Present: supple, normal ROM - Respiratory Respiratory effort: normal Respiratory: negative: rales, rhonchi, wheezing - Cardiovascular Rhythm: regular Heart Sounds: Present: S1 & S2 - Extremities Extremities: no ischemia, No edema - Abdominal General gastrointestinal: soft, non-tender, non-distended, normal bowel sounds - Integumentary Integumentary: Present: clear, warm - Psychiatric Psychiatric: appropriate mood/affect, cooperative - Neurologic Neurologic: CNII-XII intact, moves all extremities Results - Labs CBC & Chem 7: 05/26/17 04:00 05/26/17 04:00 Labs: Laboratory Last Values WBC 7.0 K/mm3 (4.5-11.0) 05/26/17 04:00 RBC 2.63 M/mm3 (3.65-5.03) L 05/26/17 04:00 Hgb 7.5 gm/dl (10.1-14.3) L 05/26/17 04:00 Hct 23.0 % (30.3-42.9) L 05/26/17 04:00 MCV 88 fl (79-97) 05/26/17 04:00 MCH 29 pg (28-32) 05/26/17 04:00 MCHC 33 % (30-34) 05/26/17 04:00 RDW 17.4 % (13.2-15.2) H 05/26/17 04:00 Plt Count 256 K/mm3 (140-440) 05/26/17 04:00 Lymph % (Auto) 9.2 % (13.4-35.0) L 05/26/17 04:00 [place] % (Auto) 8.0 % (0.0-7.3) H 05/26/17 04:00 Eos % (Auto) 1.4 % (0.0-4.3) 05/26/17 04:00 Baso % (Auto) 0.5 % (0.0-1.8) 05/26/17 04:00 Lymph # 0.7 K/mm3 (1.2-5.4) L 05/26/17 04:00 [place] # 0.6 K/mm3 (0.0-0.8) 05/26/17 04:00 Eos # 0.1 K/mm3 (0.0-0.4) 05/26/17 04:00 Baso # 0.0 K/mm3 (0.0-0.1) 05/26/17 04:00 Seg Neutrophils % 80.9 % (40.0-70.0) H 05/26/17 04:00 Seg Neutrophils # 5.7 K/mm3 (1.8-7.7) 05/26/17 04:00 Sodium 132 mmol/L (137-145) L 05/26/17 04:00 Potassium 3.7 mmol/L (3.6-5.0) 05/26/17 04:00 Chloride 91.5 mmol/L (98-107) L 05/26/17 04:00 Carbon Dioxide 26 mmol/L (22-30) 05/26/17 04:00 Anion Gap 18 mmol/L 05/26/17 04:00 BUN 18 mg/dL (7-17) H 05/26/17 04:00 Creatinine 4.4 mg/dL (0.7-1.2) H 05/26/17 04:00 Estimated GFR 14 ml/min 05/26/17 04:00 BUN/Creatinine Ratio 4.09 % 05/26/17 04:00 Glucose 99 mg/dL (65-100) 05/26/17 04:00 POC Glucose 140 (70-105) H 05/28/17 08:16 Calcium 7.8 mg/dL (8.4-10.2) L 05/26/17 04:00 Total Bilirubin 0.20 mg/dL (0.1-1.2) 05/25/17 05:43 AST 11 units/L (5-40) 05/25/17 05:43 ALT 10 units/L (7-56) 05/25/17 05:43 Alkaline Phosphatase 92 units/L (35-129) 05/25/17 05:43 Troponin T 0.410 ng/mL (0.00-0.029) H* 05/24/17 23:00 Total Protein 6.9 g/dL (6.3-8.2) 05/25/17 05:43 Albumin 3.0 g/dL (3.9-5) L 05/25/17 05:43 Albumin/Globulin Ratio 0.8 % 05/25/17 05:43 Triglycerides 102 mg/dL (2-149) 05/24/17 16:00 Cholesterol 143 mg/dL (50-199) 05/24/17 16:00 LDL Cholesterol Direct 74 mg/dL (50-130) 05/24/17 16:00 HDL Cholesterol 49 mg/dL (40-59) 05/24/17 16:00 Cholesterol/HDL Ratio 2.91 % 05/24/17 16:00 Lipase 27 units/L (13-60) 05/24/17 16:00 Random Vancomycin 24.0 ug/mL (0-40.0) 05/27/17 05:00
--- NOTE | 2017-05-28 17:59 | Progress Note ---
Assessment and Plan - Patient Problems (1) Cellulitis of right upper extremity Current Visit: Yes Status: Acute Plan to address problem: 1. No apparent cellulitis of right arm and no intra-vascular thrombus is seen on imaging. 2. Patient has already received 2 days of Vancomycin and Unasyn empirically. 3. There is no evidence of right arm infection, however, okay to continue Vancomycin with HD and oral Clindamycin to complete 7-10 days of therapy. 4. Vascular assessment is recommended for right foot. 5. Continue to monitor clinically at site of AV fistula and port. Subjective Date of service: 05/28/17 Principal diagnosis: ESRD Interval history: Patient remains afebrile. CT right arm completed yesterday. Patient has questions regarding treatment of toe infection. She says she has had malodorour drainage from the toe. Objective - Constitutional Vitals: Vital Signs Temp Pulse Resp BP Pulse Ox 98.0 F 79 20 161/85 98 05/28/17 12:00 05/28/17 12:00 05/28/17 12:07 05/28/17 12:00 05/28/17 12:00 Temperature -Last 24 Hours Temperature 98.0 F Temperature 98.4 F Temperature 97.6 F Temperature 99.3 F Temperature 99.7 F General appearance: Present: no acute distress, well-nourished - EENT ENT: edentulous - Respiratory Respiratory: bilateral: CTA - Cardiovascular Rhythm: regular Heart Sounds: Present: S1 & S2 Extremity abnormal: ulceration (at base of right 1st toe, packed with ischemic changes on lateral aspect of toe, no increased warmth, nontender) - Gastrointestinal General gastrointestinal: Present: soft, non-distended - Integumentary Integumentary: clear, no rash - Neurologic Neurologic: no focal deficits - Additional findings Additional findings: AV fistula at right arm is without overlying erythema or increased warmth; port at right chest is also without surrounding inflammation - Labs CBC & Chem 7: 05/26/17 04:00 05/26/17 04:00 Labs: Abnormal lab results 05/27/17 05/27/17 05/28/17 Range/Units 16:57 21:34 08:16 POC Glucose 182 H 112 H 140 H (70-105) Microbiology 05/25/17 18:43 Peripheral/Venous Blood Culture - Preliminary NO GROWTH AFTER 48 HOURS 05/25/17 18:15 Peripheral/Venous Blood Culture - Preliminary NO GROWTH AFTER 48 HOURS - Imaging and cardiology Other: report reviewed (CT right arm with contrast - no thrombus is seen; focal area of stenosis to 7mm present)
[2017-05-28] MEDS: CLEOCIN PO SCH (22:00)
[2017-05-29] MEDS: ZOFRAN IV PRN (00:22)
[2017-05-29] MEDS: CATAPRES PO SCH ×4 (00:28→23:54)
[2017-05-29] MEDS: ROXICODONE PO SCH ×3 (03:07→18:04)
[2017-05-29] MEDS: DILAUDID IV PRN ×7 (03:28→23:52)
[2017-05-29] MEDS: BENADRYL IV PRN ×3 (07:08→20:14)
[2017-05-29] MEDS: CLEOCIN PO SCH ×3 (08:41→20:13)
[2017-05-29] MEDS: APRESOLINE PO SCH ×3 (08:42→20:14)
[2017-05-29] MEDS: CARAFATE PO SCH ×3 (08:42→20:14)
[2017-05-29] MEDS: REGLAN PO SCH ×3 (08:42→20:14)
[2017-05-29] MEDS: NEURONTIN PO SCH ×3 (08:42→20:14)
[2017-05-29] MEDS: NORMODYNE PO SCH ×3 (08:48→20:14)
--- NOTE | 2017-05-29 10:12 | XRay Report ---
Left hip 2 views: History: Fall, pain left hip. Findings: No definite bony or articular abnormality. No fracture or dislocation. Impression: No evidence of acute fracture.
--- NOTE | 2017-05-29 10:15 | XRay Report ---
Right foot 3 views: History: Fall, pain. Findings: No bony or articular abnormality. No fracture dislocation or soft tissue calcification. Impression: Essentially negative right shoulder.
--- NOTE | 2017-05-29 10:16 | Progress Note ---
Assessment and Plan - Patient Problems (1) End stage renal disease Current Visit: Yes Status: Chronic Plan to address problem: cont HD on MWF schedule (2) Accelerated hypertension Current Visit: No Status: Acute Plan to address problem: Transitioned to oral antihypertensives, BP improved. (3) Gastroparesis due to DM Current Visit: No Status: Chronic Plan to address problem: Reglan prn (4) Anemia in chronic kidney disease Current Visit: No Status: Chronic Qualifiers: Chronic kidney disease stage: C Plan to address problem: Epogen on dialysis (5) T2DM (type 2 diabetes mellitus) Current Visit: No Status: Chronic Qualifiers: Diabetes mellitus complication status: with kidney complications Diabetes mellitus complication detail: D Diabetic retinopathy severity: D Proliferative retinopathy type: P Diabetes mellitus macular edema: D Diabetes mellitus press tender long goods insulin use: D Laterality: L Chronic kidney disease stage: on chronic dialysis Plan to address problem: glucose control as per primary attending (6) Cellulitis of right upper extremity Current Visit: Yes Status: Acute Plan to address problem: Cont Antibiotics (7) Pain from arteriovenous fistula Current Visit: Yes Status: Acute Plan to address problem: appreciated vascular surgery consult. Pt likely developed recurrent stenosis in the central veins or in the more central aspect of the basilic vein. Awaiting fistulogram on Tuesday Subjective Date of service: 05/29/17 Principal diagnosis: ESRD Interval history: Pt awake, alert, in NAD Objective - Vital Signs Vital signs: Vital Signs - 12hr 05/29/17 05/29/17 05/29/17 00:18 04:46 07:30 Temperature 98.0 F 98.2 F 98.0 F Pulse Rate 81 80 83 Respiratory 16 18 20 Rate Blood Pressure 136/78 124/67 130/71 O2 Sat by Pulse 98 92 90 Oximetry 05/29/17 08:48 Temperature Pulse Rate 83 Respiratory Rate Blood Pressure 130/71 O2 Sat by Pulse Oximetry - General Appearance General appearance: well-developed, well-nourished, appears stated age EENT: ATNC, PERRL, mucous membranes moist Neck: no JVD Respiratory: Present: Clear to Ascultation Cardiology: regular, S1S2 Gastrointestinal: normal, normoactive bowel sounds Integumentary: no rash, other (no edema ) Neurologic: no focal deficit, alert and oriented x3, strength 5/5, CN 3-12 intact Psychiatric: mood/affect appropriate, cooperative - Lab 05/26/17 04:00 05/26/17 04:00 Most recent lab results Calcium 7.8 mg/dL (8.4-10.2) L 05/26/17 04:00
[2017-05-29] MEDS: PROCARDIA XL PO SCH (10:39)
[2017-05-29] MEDS: PROTONIX PO SCH ×2 (10:39→23:54)
[2017-05-29] MEDS: HEPARIN SUB-Q SCH ×2 (10:39→23:00)
[2017-05-29] MEDS: COZAAR PO SCH ×2 (10:39→23:54)
--- NOTE | 2017-05-29 11:10 | Progress Note ---
Assessment and Plan Assessment and plan: --Status post fall this morning; reports she suddenly became weak in the knees No external injuries noted Right shoulder x-ray no acute abnormality noted Left hip x-ray no abnormality noted --Sepsis; secondary to cellulitis right upper extremity, continue IV antibiotics follow cultures --Cellulitis right upper extremity; Able to tolerate hemodialysis through the AV fistula Continue current antibiotics, CT right arm to evaluate for abscess versus thrombus ID, vascular, nephrology following, follow cultures --End Stage renal disease on hemodialysis, As per schedule, nephrology following --Malignant hypertension,, Continue current antihypertensives and when necessary medication --Type 2 diabetes mellitus, Accu-Chek sliding scale coverage ADA diet and insulin --Anemia of chronic kidney disease, Closely monitor H&H, Epogen during dialysis , transfuse as needed --Gastroparesis secondary to diabetes mellitus, Supportive care --Bdbe-la-wvdxhmil protein calorie malnutrition/hypoalbuminemia, Supportive care nutritional supplements --DVT prophylaxis; heparin and renal dose Consults noted appreciated, plan of care discussed with the patient History Interval history: Since seen and evaluated medical records reviewed Patient became weak in the knees and she got up from the bed and fell on the floor No obvious injuries, complaints of right shoulder and left hip pain X-rays negative Hospitalist Physical - Constitutional Vitals: Temp Pulse Resp BP Pulse Ox 98.0 F 83 20 130/71 90 05/29/17 07:30 05/29/17 10:39 05/29/17 07:30 05/29/17 10:39 05/29/17 07:30 General appearance: Present: no acute distress, well-nourished - EENT Eyes: Present: PERRL, EOM intact - Neck Neck: Present: supple, normal ROM - Respiratory Respiratory effort: normal Respiratory: bilateral: diminished, negative: rales, rhonchi, wheezing - Cardiovascular Rhythm: regular Heart Sounds: Present: S1 & S2 - Extremities Extremities: no ischemia, No edema - Abdominal General gastrointestinal: soft, non-tender, non-distended, normal bowel sounds - Integumentary Integumentary: Present: clear, warm - Psychiatric Psychiatric: appropriate mood/affect, cooperative - Neurologic Neurologic: CNII-XII intact, moves all extremities Results - Labs CBC & Chem 7: 05/26/17 04:00 05/26/17 04:00 Labs: Laboratory Last Values WBC 7.0 K/mm3 (4.5-11.0) 05/26/17 04:00 RBC 2.63 M/mm3 (3.65-5.03) L 05/26/17 04:00 Hgb 7.5 gm/dl (10.1-14.3) L 05/26/17 04:00 Hct 23.0 % (30.3-42.9) L 05/26/17 04:00 MCV 88 fl (79-97) 05/26/17 04:00 MCH 29 pg (28-32) 05/26/17 04:00 MCHC 33 % (30-34) 05/26/17 04:00 RDW 17.4 % (13.2-15.2) H 05/26/17 04:00 Plt Count 256 K/mm3 (140-440) 05/26/17 04:00 Lymph % (Auto) 9.2 % (13.4-35.0) L 05/26/17 04:00 [place] % (Auto) 8.0 % (0.0-7.3) H 05/26/17 04:00 Eos % (Auto) 1.4 % (0.0-4.3) 05/26/17 04:00 Baso % (Auto) 0.5 % (0.0-1.8) 05/26/17 04:00 Lymph # 0.7 K/mm3 (1.2-5.4) L 05/26/17 04:00 [place] # 0.6 K/mm3 (0.0-0.8) 05/26/17 04:00 Eos # 0.1 K/mm3 (0.0-0.4) 05/26/17 04:00 Baso # 0.0 K/mm3 (0.0-0.1) 05/26/17 04:00 Seg Neutrophils % 80.9 % (40.0-70.0) H 05/26/17 04:00 Seg Neutrophils # 5.7 K/mm3 (1.8-7.7) 05/26/17 04:00 Sodium 132 mmol/L (137-145) L 05/26/17 04:00 Potassium 3.7 mmol/L (3.6-5.0) 05/26/17 04:00 Chloride 91.5 mmol/L (98-107) L 05/26/17 04:00 Carbon Dioxide 26 mmol/L (22-30) 05/26/17 04:00 Anion Gap 18 mmol/L 05/26/17 04:00 BUN 18 mg/dL (7-17) H 05/26/17 04:00 Creatinine 4.4 mg/dL (0.7-1.2) H 05/26/17 04:00 Estimated GFR 14 ml/min 05/26/17 04:00 BUN/Creatinine Ratio 4.09 % 05/26/17 04:00 Glucose 99 mg/dL (65-100) 05/26/17 04:00 POC Glucose 116 (70-105) H 05/29/17 08:30 Calcium 7.8 mg/dL (8.4-10.2) L 05/26/17 04:00 Total Bilirubin 0.20 mg/dL (0.1-1.2) 05/25/17 05:43 AST 11 units/L (5-40) 05/25/17 05:43 ALT 10 units/L (7-56) 05/25/17 05:43 Alkaline Phosphatase 92 units/L (35-129) 05/25/17 05:43 Troponin T 0.410 ng/mL (0.00-0.029) H* 05/24/17 23:00 Total Protein 6.9 g/dL (6.3-8.2) 05/25/17 05:43 Albumin 3.0 g/dL (3.9-5) L 05/25/17 05:43 Albumin/Globulin Ratio 0.8 % 05/25/17 05:43 Triglycerides 102 mg/dL (2-149) 05/24/17 16:00 Cholesterol 143 mg/dL (50-199) 05/24/17 16:00 LDL Cholesterol Direct 74 mg/dL (50-130) 05/24/17 16:00 HDL Cholesterol 49 mg/dL (40-59) 05/24/17 16:00 Cholesterol/HDL Ratio 2.91 % 05/24/17 16:00 Lipase 27 units/L (13-60) 05/24/17 16:00 Random Vancomycin 24.0 ug/mL (0-40.0) 05/27/17 05:00
[2017-05-30] MEDS: DILAUDID IV PRN ×4 (03:34→15:35)
[2017-05-30] MEDS: BENADRYL IV PRN ×3 (03:34→15:35)
[2017-05-30] MEDS: ROXICODONE PO SCH ×2 (03:35→16:00)
[2017-05-30] MEDS: CATAPRES PO SCH ×2 (06:18→15:59)
--- NOTE | 2017-05-30 10:02 | Progress Note ---
Assessment and Plan - Patient Problems (1) Cellulitis of right upper extremity Current Visit: Yes Status: Acute Plan to address problem: Continue antibiotics. Discharge planning by primary attending. I spoke to patient's mother Liliana and expressed my concern about patient's condition I called her on the phone at [phone]. She had discussed with Dr. Cote during last hospitalization and and had told him that she would live with the patient to be able to provide her some support and monitor her medications and diet. Patient still lives alone with her children. I spoke to the mother and she said her home is too small to put patient and her 3 children in so she has to look for a bigger house. I expressed the importance of giving her support now. I'm concerned that she could have a stroke or other cardiovascular catastrophe which could be disabling or potentially life-threatening. She expressed surprise at this. She promised to do what she could as soon as possible to expedite the move. (2) End stage renal disease Current Visit: Yes Status: Chronic Plan to address problem: Continue dialysis on a Tuesday, Tuesday and Tuesday schedule. (3) Accelerated hypertension Current Visit: No Status: Acute Plan to address problem: Blood pressure has improved. (4) Anemia in chronic kidney disease Current Visit: No Status: Acute Qualifiers: Chronic kidney disease stage: unspecified stage Qualified Code(s): N18.9 - Chronic kidney disease, unspecified; D63.1 - Anemia in chronic kidney disease (5) Gastroparesis due to DM Current Visit: No Status: Acute Plan to address problem: Continue medications (6) T2DM (type 2 diabetes mellitus) Current Visit: No Status: Chronic Qualifiers: Diabetes mellitus complication status: without complication Diabetes mellitus complication detail: D Diabetic retinopathy severity: D Proliferative retinopathy type: P Diabetes mellitus macular edema: D Diabetes mellitus terminal clerk insulin use: without terminal clerk use Laterality: L Chronic kidney disease stage: C Qualified Code(s): E11.9 - Type 2 diabetes mellitus without complications Plan to address problem: Blood sugar management by primary attending Subjective Date of service: 05/30/17 Principal diagnosis: ESRD Interval history: Patient seen lying in bed. She has no complaints today. No nausea or vomiting. She feels better Objective - Exam Narrative Exam: [Young -[place] female lying in bed] in no acute distress HEENT [normocephalic atraumatic, pupils equal reactive to light, pink, clear oropharynx] Neck [supple, no thyromegaly no jugular venous distention] CVS [S1-S2 regular rate rhythm without murmur, rub or gallop] Chest [clear to auscultation] Abdomen [soft nondistended nontender no organomegaly no bruit bowel sounds present] Extremities [no edema no cyanosis or clubbing] Neuro [awake, alert oriented x3 no gross deficit] - Vital Signs Vital signs: Vital Signs - 12hr 05/30/17 05/30/17 05/30/17 03:07 08:13 09:48 Temperature 98.6 F 98.0 F 98.5 F Pulse Rate 86 82 78 Respiratory 18 20 18 Rate Blood Pressure 154/76 142/75 138/75 O2 Sat by Pulse 97 95 94 Oximetry - Lab 05/26/17 04:00 05/26/17 04:00 Most recent lab results Calcium 7.8 mg/dL (8.4-10.2) L 05/26/17 04:00
[2017-05-30] MEDS: APRESOLINE PO SCH ×2 (10:03→15:43)
[2017-05-30] MEDS: CARAFATE PO SCH ×2 (10:04→15:44)
[2017-05-30] MEDS: CLEOCIN PO SCH ×2 (10:04→15:46)
[2017-05-30] MEDS: NEURONTIN PO SCH ×2 (10:05→15:43)
[2017-05-30] MEDS: NORMODYNE PO SCH ×2 (10:05→15:42)
[2017-05-30] MEDS: COZAAR PO SCH ×2 (10:06→15:44)
[2017-05-30] MEDS: REGLAN PO SCH ×2 (10:06→15:42)
[2017-05-30] MEDS: PROCARDIA XL PO SCH (10:07)
[2017-05-30] MEDS: PROTONIX PO SCH (10:07)
[2017-05-30] MEDS: HEPARIN SUB-Q SCH (10:07)
--- NOTE | 2017-05-30 10:12 | Progress Note ---
Assessment and Plan Patient will need a fistulogram the patient with evaluation of her central veins. Additionally, the smaller areas of stenosis within the body of the fistula can be treated at this time. The patient states that she has new onset seizures for which she has an outpatient appointment with a neurologist tomorrow. Her fistulogram may be scheduled as an outpatient if she is to be discharged today. If she remains in the hospital, we will plan on a fistulogram tomorrow. Subjective Date of service: 05/30/17 Principal diagnosis: ESRD Interval history: Patient with a history of right upper arm AV fistula who complains of pain. She is noted to have cellulitis. Her pain is primarily at the inferior aspect of the fistula. Additionally, she describes fistula swelling. A CT of her arm was performed which demonstrated a minimal amount of inflammation around the fistula. The veins are per dominantly dilated and the visualized field. The central veins are not evaluated. Additionally, the patient has a right chest wall port. A small area of stenosis was noted however, it is 7 mm in diameter. Objective - Constitutional Vitals: Vital Signs - 12hr 05/30/17 05/30/17 05/30/17 03:07 08:13 09:48 Temperature 98.6 F 98.0 F 98.5 F Pulse Rate 86 82 78 Respiratory 18 20 18 Rate Blood Pressure 154/76 142/75 138/75 O2 Sat by Pulse 97 95 94 Oximetry 05/30/17 05/30/17 10:05 10:06 Temperature Pulse Rate Respiratory Rate Blood Pressure 142/68 142/68 O2 Sat by Pulse Oximetry General appearance: Present: no acute distress - EENT Eyes: PERRL, EOM intact ENT: hearing intact - Neck Neck: supple, normal ROM - Respiratory Respiratory effort: normal - Breasts Breasts: deferred Extremities: no ischemia Extremity abnormal: edema - Gastrointestinal General gastrointestinal: Present: deferred Rectal Exam: deferred - Genitourinary Female genitourinary: deferred - Integumentary Integumentary: clear, warm - Neurologic Neurologic: CNII-XII intact, no focal deficits - Psychiatric Psychiatric: appropriate mood/affect, cooperative - Labs CBC & Chem 7: 05/26/17 04:00 05/26/17 04:00 Labs: Abnormal lab results 05/29/17 05/29/17 05/29/17 Range/Units 12:04 16:46 22:38 POC Glucose 127 H 133 H 132 H (70-105) - Imaging and cardiology CT scan - pelvis: image reviewed (CT arm)
--- NOTE | 2017-05-30 11:44 | Progress Note ---
Assessment and Plan - Patient Problems (1) Cellulitis of right upper extremity Current Visit: Yes Status: Acute Plan to address problem: Continue to monitor area clinically. There are no present signs of infection. (2) Foot ulcer, left Current Visit: Yes Status: Acute Qualifiers: Non-pressure ulcer stage: N Plan to address problem: Continue empiric Vancomycin with HD and oral Clindamycin to complete a 7-10- day course. Continue vascular assessment. I will sign off. Please call again if there are additional questions or concerns. Subjective Date of service: 05/30/17 Principal diagnosis: ESRD Interval history: No new complaints. Undergoing vascular assessment of left lower extremity. Objective - Constitutional Vitals: Vital Signs Temp Pulse Resp BP Pulse Ox 98.1 F 79 18 146/84 94 05/30/17 11:28 05/30/17 11:28 05/30/17 11:28 05/30/17 11:28 05/30/17 09:48 Temperature -Last 24 Hours Temperature 98.1 F Temperature 98.5 F Temperature 98.0 F Temperature 98.6 F Temperature 98.9 F Temperature 98.5 F General appearance: Present: no acute distress, other (undergoing HD) - Respiratory Respiratory effort: normal Respiratory: bilateral: CTA - Cardiovascular Rhythm: regular Heart Sounds: Present: S1 & S2 Extremity abnormal: other (left 1st toe wrapped) - Gastrointestinal General gastrointestinal: Present: soft, non-distended - Integumentary Integumentary: clear, no rash - Additional findings Additional findings: AV fistula right arm without signs of infection; right subclavian port with surrounding inflammation - Labs CBC & Chem 7: 05/26/17 04:00 05/26/17 04:00 Labs: Abnormal lab results 05/29/17 05/29/17 05/29/17 Range/Units 12:04 16:46 22:38 POC Glucose 127 H 133 H 132 H (70-105) Microbiology 05/25/17 18:43 Peripheral/Venous Blood Culture - Preliminary NO GROWTH AFTER 4 DAYS 05/25/17 18:15 Peripheral/Venous Blood Culture - Preliminary NO GROWTH AFTER 4 DAYS
[2017-05-30] MEDS ORDERED: NACL 0.9 (PRIMING MACHINE ONLY DIALYSIS) MC ONE (11:58)
--- NOTE | 2017-05-30 16:19 | Discharge Summary ---
Providers - Providers Date of Admission: 05/24/17 18:50 Date of discharge: 05/30/17 Attending physician: FORD CHAVEZ 05/26/17 10:41 Consult to Physician [CONS] Routine Consulting Provider: SHAYLEE PECK Reason For Exam: cellulitis/inf vas cath Place consult to:: education and development manager Notified:: PUT ON LIST 05/27/17 08:00 Consult to Wound/ET Nurse [CONS] Routine Reason For Exam: wound eval 05/27/17 14:03 Consult to Physician [CONS] Routine Consulting Provider: ACSSIUS MURPHY Reason For Exam: pain on her AVF Place consult to:: VASCULAR Notified:: YES Was contact made?: Yes Time called:: 06:00 Primary care physician: MEAT CURER Hospitalization Reason for admission: Nausea/vomiting/cellulitis Rt upper extremity Condition: Stable Pertinent studies: Xray Shoulder rt Xray Hip lt CT rt upper extremity US rt upper extremity CXR Procedures: HD per schedule Hospital course: 37 ye old female patient is admitted with chest pain, Rt upper extremity cellulitis and ESRD on HD.admitted to the hospital,evaluated by nephrology, received HD per schedule,seen by ID managed with IV antibiotics and evaluated by vascular. ID recommended Vanco during HD and oral clindamycin for 10 days upon discharge. Patients symptoms improved and is stable at discharge. Diagnosis and management: --Status post fall this morning; Right shoulder x-ray no acute abnormality noted Left hip x-ray no abnormality noted --Sepsis; secondary to cellulitis right upper extremity, continue IV antibiotics --Cellulitis right upper extremity; continue antibiotics per ID,vancomycin and clindamycin --End Stage renal disease on hemodialysis, As per schedule, --Malignant hypertension,, Continue current antihypertensives and when necessary medication --Type 2 diabetes mellitus, Accu-Chek sliding scale coverage ADA diet and insulin --Anemia of chronic kidney disease, Closely monitor H&H, Epogen during dialysis , transfuse as needed --Gastroparesis secondary to diabetes mellitus, Supportive care --[id number] protein calorie malnutrition/hypoalbuminemia, Supportive care nutritional supplements Patient will f/u PMD,Renal.ID and vascular upon discharge. Disposition: TO HOME OR SELFCARE Time spent for discharge: 32 min Core Measure Documentation - Palliative Care Palliative Care/ Comfort Measures: Not Applicable - Core Measures Any of the following diagnoses?: none Exam - Constitutional Vitals: Temp Pulse Resp BP Pulse Ox 97.2 F L 87 18 192/88 94 05/30/17 14:09 05/30/17 14:09 05/30/17 14:09 05/30/17 15:59 05/30/17 09:48 General appearance: Present: no acute distress, well-nourished - EENT Eyes: Present: PERRL, EOM intact - Neck Neck: Present: supple, normal ROM - Respiratory Respiratory effort: normal Respiratory: negative: rales, rhonchi, wheezing - Cardiovascular Rhythm: regular Heart Sounds: Present: S1 & S2 - Extremities Extremities: no ischemia, No edema Peripheral Pulses: within normal limits - Abdominal General gastrointestinal: Present: soft, non-tender, non-distended, normal bowel sounds - Integumentary Integumentary: Present: clear, warm - Musculoskeletal Musculoskeletal: strength equal bilaterally - Psychiatric Psychiatric: appropriate mood/affect, cooperative - Neurologic Neurologic: CNII-XII intact, moves all extremities Plan Activity: advance as tolerated Diet: renal Additional Instructions: Follow HD and renal per schedule. Advised vancomycin during hemodialysis Follow up with: PRIMARY CAREMD [Primary Care Provider] - 3-5 Days GAURAV DURBIN MD [Staff Physician] - 7 Days SHAYLEE PECK MD [Staff Physician] - 7 Days ALIX ESTEVEZ MD [Staff Physician] - 7 Days Prescriptions: Clindamycin [Clindamycin CAP] 150 mg PO TID #21 capsule cloNIDine [Catapres] 0.2 mg PO Q8H #30 tablet Vancomycin HCl in Dextrose 5 % [Vancomycin 1.5 Gram/250 ml-D5w] 1.5 gm IV 3XW # 5 plast..bag
[2017-05-30] MEDS ORDERED: FLUSH HEPARIN IV ONE (17:17)
[2017-05-30 18:27] VITALS: BP 173/88
[2017-05-30] MEDS ORDERED: VANCOMYCIN/NS 1 GM/250 ML 1 GM/250 ML BAG IV ONE (20:00)
== END 2017-05-30 19:35 | disposition home or self-care (01) | DRG 314 ==
LOC: ED 14:31 → 4A 18:50
PROVIDERS: ADMIT Internal Medicine; ATTEND Internal Medicine
PROC: 5A1D60Z (ICD-10-PCS; principal; 2017-05-24)
DX: T82.848A Pain due to vascular prosthetic devices, implants and grafts, initial encounter (principal); A41.9 Sepsis, unspecified organism; N18.6 End stage renal disease; L03.113 Cellulitis of right upper limb; I13.2 Hypertensive heart and chronic kidney disease with heart failure and with stage 5 chronic kidney disease, or end stage renal disease; E44.0 Moderate protein-calorie malnutrition; I50.9 Heart failure, unspecified; E11.22 Type 2 diabetes mellitus with diabetic chronic kidney disease; M19.90 Unspecified osteoarthritis, unspecified site; J44.9 Chronic obstructive pulmonary disease, unspecified; G43.909 Migraine, unspecified, not intractable, without status migrainosus; G43.A1 Cyclical vomiting, in migraine, intractable; I27.2 Other secondary pulmonary hypertension; E11.43 Type 2 diabetes mellitus with diabetic autonomic (poly)neuropathy; K31.84 Gastroparesis; D63.1 Anemia in chronic kidney disease; E11.621 Type 2 diabetes mellitus with foot ulcer; Z88.6 Allergy status to analgesic agent; Z88.8 Allergy status to other drugs, medicaments and biological substances; Z90.49 Acquired absence of other specified parts of digestive tract; Z98.891 History of uterine scar from previous surgery; Z98.51 Tubal ligation status; Z99.2 Dependence on renal dialysis; Z68.31 Body mass index [BMI] 31.0-31.9, adult; Z82.49 Family history of ischemic heart disease and other diseases of the circulatory system; L97.529 Non-pressure chronic ulcer of other part of left foot with unspecified severity; W19.XXXA Unspecified fall, initial encounter; Y93.9 Activity, unspecified; Y92.239 Unspecified place in hospital as the place of occurrence of the external cause; Y83.2 Surgical operation with anastomosis, bypass or graft as the cause of abnormal reaction of the patient, or of later complication, without mention of misadventure at the time of the procedure
CPT/HCPCS: 36415; 71010; 80048; 80053; 80061; 80202; 82962; 83690; 84484; 85025; 87040; 93005; 93010; 94760; 96374; 96375; 99285; J0295; J0885; J1170; J1200; J1642; J1644; J1885; J2405; J3370; J7030; J7040; Q0169; Q9967

== ENCOUNTER 2017-06-04 04:07 | Inpatient (IN) | payer MEDICARE ==
[2017-06-04] MEDS ORDERED: MORPHINE IV ONE (05:08)
[2017-06-04] MEDS ORDERED: ZOFRAN IV ONE ×2 (05:09→06:44)
[2017-06-04] MEDS ORDERED: ULTRAM PO ONE (05:34)
[2017-06-04] MEDS ORDERED: SUBLIMAZE IV ONE (06:44)
[2017-06-04] MEDS ORDERED: XOPENEX IH ONE (06:48)
--- NOTE | 2017-06-04 06:49 | Emergency Department Report ---
HPI - General Chief Complaint: Pain General Time Seen by Provider: 06/04/17 06:32 - HPI HPI: Room 7 The patient is a 37-year-old female presenting with a chief complaint of body aches, lower extremity swelling abdominal pain and shortness of breath. The patient has a history of end-stage renal disease usually received dialysis every Tuesday was Tuesday. The patient states she missed dialysis Tuesday () but didn't receive dialysis yesterday. The patient states yesterday while at dialysis she continued to have shortness of breath and body aches: Bilateral lower extremities and abdominal pain. The patient states she informed staff and they asked her if she wanted to go to the hospital. The patient states she declined and just wanted to receive dialysis. The patient states after dialysis she felt slightly better however throughout the night her symptoms returned. Location: All over, lungs Duration: [see above] Quality: Soreness, shortness of breath Severity: Moderate Modifying factors: [see above] Context: [see above] Mode of transportation: [not driving] ED Past Medical Hx - Past Medical History Previous Medical History?: Yes Hx Hypertension: Yes Hx Congestive Heart Failure: Yes Hx Diabetes: Yes Hx Renal Disease: Yes (Dialysis MWF) Hx Arthritis: Yes Hx Seizures: Yes Hx Asthma: Yes (PATIENT IS ASTHMATIC) Hx COPD: Yes Additional medical history: gastroparesis - Surgical History Hx Cholecystectomy: Yes (18 years ago) Additional Surgical History: c section, tubal ligation. fistula right arm - Family History Family history: no significant - Social History Smoking Status: Never Smoker Substance Use Type: None - Medications Home Medications: Home Medications Medication Instructions Recorded Confirmed Last Taken Type hydrALAZINE [Apresoline TAB] 100 mg PO TID #90 tab 03/06/17 05/24/17 05/24/17 Rx Pantoprazole [Protonix TAB] 40 mg PO BID #20 tablet 04/12/17 05/24/17 05/05/17 07:00 Rx Cyclobenzaprine HCl [Flexeril 5 MG 10 mg PO BID PRN 05/24/17 05/24/17 Unknown History TAB] Dicyclomine [Bentyl] 20 mg PO QID PRN 05/24/17 05/24/17 Unknown History Gabapentin [Neurontin] 100 mg PO TID 05/24/17 05/24/17 05/24/17 History Labetalol HCl 300 mg PO TID 05/24/17 05/24/17 05/24/17 History Losartan [Cozaar] 100 mg PO BID 05/24/17 05/24/17 05/24/17 History NIFEdipine XL [Procardia Xl] 90 mg PO QDAY 05/24/17 05/24/17 Unknown History Oxycodone HCl [Roxicodone TAB] 30 mg PO QID 05/24/17 05/24/17 Unknown History Promethazine [Phenergan TAB] 25 mg PO Q6H PRN 05/24/17 05/24/17 Unknown History Sucralfate [Carafate] 1 gm PO TID 05/24/17 05/24/17 05/24/17 History SUMAtriptan SUCCINATE [Imitrex] 50 mg PO PRN PRN 05/26/17 05/26/17 Unknown History Clindamycin [Clindamycin CAP] 150 mg PO TID #21 capsule 05/30/17 Unknown Rx Vancomycin HCl in Dextrose 5 % 1.5 gm IV 3XW #5 plast..bag 05/30/17 Unknown Rx [Vancomycin 1.5 Gram/250 ml-D5w] cloNIDine [Catapres] 0.2 mg PO Q8H #30 tablet 05/30/17 Unknown Rx ED Review of Systems ROS: Stated complaint: TOBIAS Other details as noted in HPI Comment: All other systems reviewed and negative Constitutional: denies: chills, fever Eyes: denies: eye pain, eye discharge, vision change ENT: denies: ear pain, throat pain Respiratory: shortness of breath Cardiovascular: denies: chest pain, palpitations Endocrine: no symptoms reported Gastrointestinal: abdominal pain, nausea, vomiting Genitourinary: denies: urgency, dysuria, discharge Musculoskeletal: myalgia Skin: denies: rash, lesions Neurological: denies: headache, weakness, paresthesias Psychiatric: denies: anxiety, depression Hematological/Lymphatic: denies: easy bleeding, easy bruising Physical Exam - Physical Exam Vital Signs: Vital Signs 06/04/17 06/04/17 04:40 04:58 Temperature 100.2 F H Pulse Rate 94 H Respiratory 18 Rate Blood Pressure 153/87 O2 Sat by Pulse 99 Oximetry Physical Exam: GENERAL: The patient is well-developed well-nourished female lying on stretcher receiving nebulizer. [] HEENT: Normocephalic. Atraumatic. Extraocular motions are intact. Patient has moist mucous membranes. NECK: Supple. Trachea midline CHEST/LUNGS: Rhonchi throughout. There is no respiratory distress noted. HEART/CARDIOVASCULAR: Regular. There is no tachycardia. There is no gallop rub or murmur. ABDOMEN: Abdomen is soft, nontender. Patient has normal bowel sounds. There is no abdominal distention. SKIN: There is no rash. There is trace to 1+ bilateral lower extremity pitting edema. There is no diaphoresis. NEURO: The patient is awake, alert, and oriented. The patient is cooperative. The patient has normal speech MUSCULOSKELETAL: There is no evidence of acute injury. ED Course Vital Signs 06/04/17 06/04/17 04:40 04:58 Temperature 100.2 F H Pulse Rate 94 H Respiratory 18 Rate Blood Pressure 153/87 O2 Sat by Pulse 99 Oximetry ED Medical Decision Making - Lab Data Result diagrams: 06/04/17 07:00 06/04/17 07:00 Laboratory Tests 06/04/17 06/04/17 07:00 07:00 WBC 7.4 RBC 2.63 L Hgb 7.5 L Hct 23.5 L MCV 90 MCH 29 MCHC 32 RDW 19.5 H Plt Count 256 Sodium 138 Potassium 4.3 Chloride 93.6 L Carbon Dioxide 29 Anion Gap 20 BUN 21 H Creatinine 5.1 H Estimated GFR 12 BUN/Creatinine Ratio 4.11 Glucose 117 H Calcium 8.7 - EKG Data -: EKG Interpreted by Me EKG shows normal: sinus rhythm Rate: normal - EKG Data When compared to previous EKG there are: no significant change Interpretation: unchanged when compared t (05/24/2017) - Radiology Data Radiology results: image reviewed (chest x-ray) Chest [id number] edema/volume overload. - Differential Diagnosis end-stage renal disease, pneumonia, CHF Critical care attestation.: If time is entered above; I have spent that time in minutes in the direct care of this critically ill patient, excluding procedure time. ED Disposition Clinical Impression: End stage renal disease on dialysis, Shortness of breath, Pulmonary edema Disposition: OP ADMIT IP TO THIS HOSP Is pt being admited?: Yes Does the pt Need Aspirin: Yes Condition: Fair Instructions: Pulmonary Edema (ED) Referrals: PRIMARY CARE, [Primary Care Provider] - 3-5 Days Time of Disposition: 07:30 (hospitalist and Dr. Trevino paged)
[2017-06-04 07:16] LABS: Hematocrit 23.5 % (30.3-42.9); Hemoglobin 7.5 gm/dl (10.1-14.3); Mean Corpuscular HGB Conc 32 % (30-34); Mean Corpuscular Hemoglobin 29 pg (28-32); Mean Corpuscular Volume 90 fl (79-97); Platelet Count 256 K/mm3 (140-440); Red Blood Count 2.63 M/mm3 (3.65-5.03); Red Cell Distribution Width 19.5 % (13.2-15.2); White Blood Count 7.4 K/mm3 (4.5-11.0)
[2017-06-04 07:26] LABS: BUN/Creatinine Ratio 4.11; Calcium 8.7 mg/dL (8.4-10.2); Chloride 93.6 mmol/L (98-107); Potassium 4.3 mmol/L (3.6-5.0)
[2017-06-04] MEDS ORDERED: ASPIRIN PO ONE (07:30)
[2017-06-04] MEDS ORDERED: CYCLOBENZAPRINE HCL 10 MG PO PRN (07:50)
[2017-06-04] MEDS ORDERED: BENTYL PO PRN (07:50)
[2017-06-04] MEDS ORDERED: IMITREX PO PRN (07:50)
[2017-06-04] MEDS: APRESOLINE PO SCH ×3 (08:00→21:56)
[2017-06-04] MEDS ORDERED: NON-FORMULARY (Labetalol Hcl [Labetalol Hcl] 300 MG) PO SCH (08:00)
[2017-06-04] MEDS: NORMODYNE PO SCH ×3 (08:00→21:55)
[2017-06-04] MEDS: CATAPRES PO SCH ×2 (08:00→18:38)
[2017-06-04] MEDS ORDERED: DILAUDID IV ONE (08:22)
[2017-06-04] MEDS ORDERED: BENADRYL IV ONE ×2 (08:22→19:00)
[2017-06-04] MEDS ORDERED: FLEXERIL PO PRN (08:23)
--- NOTE | 2017-06-04 09:21 | XRay Report ---
AP CHEST :06/04/17 04:07:00 CLINICAL: Shortness of breath and leg swelling. COMPARISON:05/24/17 FINDINGS: Mild cardiomegaly with cardiac enlargement and new central vascular congestion.The pulmonary vessels are indistinct. New bibasal lung opacities, greater on the right than the left. A right Eqrlvy-w-[id number] tip remains in the right atrium. The bones and soft tissues are normal. IMPRESSION: Normal development of CHF with mild pulmonary edema.
[2017-06-04] MEDS: COZAAR PO SCH ×2 (10:00→21:56)
[2017-06-04] MEDS ORDERED: OXYCODONE HCL 30 MG PO SCH (10:00)
--- NOTE | 2017-06-04 10:33 | History and Physical Report ---
History of Present Illness Date of examination: 06/04/17 Date of admission: 06/04/17 09:43 Chief complaint: Abdominal pain, leg swelling History of present illness: 37-year-old -[place]i female with past medical history significant for hypertension, diabetes mellitus, CHF, asthma, end-stage renal disease on hemodialysis, gastroparesis, COPD on home oxygen presented to the emergency department complaining of shortness of breath, abdominal pain, bilateral leg swelling. The patient missed dialysis on Tuesday due to transportation issue but had dialysis yesterday and the plan was to repeat hemodialysis today. The patient has shortness of breath, cough since Tuesday. While she was in dialysis yesterday the dialysis staff advised her to go to the hospital but patient preferred to go home. Patient presented today complaining of abdominal pain, shortness of breath and leg swelling getting worse. Abdominal pain, mid abdomen, sharp pain, 10 out of 10 in intensity, with no radiation, associated with nausea and vomiting, aggravated with eating, relieved with Dilaudid. She said the pain is no different from the usual pain from gastroparesis. Patient denied fever, chills, chest pain, palpitation. Patient was admitted to the hospital for sepsis, cellulitis and was discharged on 05/24/17 with IV vancomycin and clindamycin, she finished her medications. She has also on the right foot and scheduled to see Dr. Weston as an outpatient. REVIEW OF SYSTEMS: GENERAL: no weight change, no fatigue, no fever HEAD: no head ache EYES: no blurry vision, no acute visual loss EARS: no hearing loss, no discharge, no earache NOSE: no stuffiness, no sneezing, no discharge MOUTH, THROAT AND NECK: no bleeding gums, no sore throat, no swollen neck CARDIAC: no palpitations, + dyspnea on exertion, no orthopnea, no PND, + edema, no chest pain RESPIRATORY: + shortness of breath, no wheeze, + cough, no sputum, no hemoptysis , + asthma GI: no decreased appetite, + nausea, + vomiting, no dysphagia, no diarrhea, no constipation, + abdominal pain URINARY: patient is on HD. MUSCULOSKELETAL: bilateral lower extremity selling and pain. NEUROLOGIC: no loss of sensation/numbness, no tingling, no tremors, no weakness/ paralysis HEMATOLOGIC: + anemia, no easy bruising SKIN: no rashes ENDOCRINE: no heat/cold intolerance, no polyuria, no polydipsia, no thyroid problems, + diabetes PSYCHIATRIC: no anxiety, no depression, no suicidal ideations Past History Past Medical History: diabetes, ESRD, hypertension, other (gastroparesis) Past Surgical History: Other (port cath, AV fistula) Social history: single, Lives alone, full code. denies: smoking, alcohol abuse , prescription drug abuse, IV drug use Family history: CAD, diabetes, hypertension Medications and Allergies Allergies Allergy/AdvReac Type Severity Reaction Status Date / Time lisinopril Allergy Shortness Verified 06/04/17 07:41 of Breath oxycodone HCl [From Percocet] Allergy Itching Verified 06/04/17 07:41 morphine AdvReac Anaphylaxis Verified 06/04/17 07:41 Home Medications Medication Instructions Recorded Confirmed Last Taken Type hydrALAZINE [Apresoline TAB] 100 mg PO TID #90 tab 03/06/17 06/04/17 06/03/17 Rx Pantoprazole [Protonix TAB] 40 mg PO BID #20 tablet 04/12/17 06/04/17 06/03/17 Rx Cyclobenzaprine HCl [Flexeril 5 MG 10 mg PO BID PRN 05/24/17 06/04/17 06/03/17 History TAB] Dicyclomine [Bentyl] 20 mg PO QID PRN 05/24/17 06/04/17 06/03/17 History Gabapentin [Neurontin] 100 mg PO TID 05/24/17 06/04/17 06/03/17 History Labetalol HCl 300 mg PO TID 05/24/17 06/04/17 06/03/17 History Losartan [Cozaar] 100 mg PO BID 05/24/17 06/04/17 06/03/17 History NIFEdipine XL [Procardia Xl] 90 mg PO QDAY 05/24/17 06/04/17 06/03/17 History Oxycodone HCl [Roxicodone TAB] 30 mg PO QID 05/24/17 06/04/17 06/03/17 History Promethazine [Phenergan TAB] 25 mg PO Q6H PRN 05/24/17 06/04/17 06/03/17 History Sucralfate [Carafate] 1 gm PO TID 08/06/0206/04/17 06/03/17 History SUMAtriptan SUCCINATE [Imitrex] 50 mg PO PRN PRN 05/26/17 06/04/17 06/03/17 History Clindamycin [Clindamycin CAP] 150 mg PO TID #21 capsule 05/30/17 06/04/17 Rx Vancomycin HCl in Dextrose 5 % 1.5 gm IV 3XW #5 plast..bag 05/30/17 06/04/17 Rx [Vancomycin 1.5 Gram/250 ml-D5w] cloNIDine [Catapres] 0.2 mg PO Q8H #30 tablet 05/30/17 06/04/17 06/03/17 Rx Active Meds: Active Medications Clonidine HCl (Catapres) 0.2 mg PO Q8H [facility] Cyclobenzaprine HCl (Flexeril) 10 mg PO BID PRN PRN Reason: Muscle Spasm Dicyclomine HCl (Bentyl) 20 mg PO QID PRN PRN Reason: Pain Gabapentin (Neurontin) 100 mg PO TID [facility] Heparin Sodium (Porcine) (Heparin) 5,000 unit SUB-Q Q8HR [facility] Hydralazine HCl (Apresoline) 100 mg PO TID [facility] Labetalol HCl (Normodyne) 300 mg PO TID [facility] Losartan Potassium (Cozaar) 100 mg PO BID [facility] Nifedipine (Procardia Xl) 90 mg PO QDAY [facility] Oxycodone HCl (Roxicodone) 30 mg PO QID [facility] Pantoprazole Sodium (Protonix) 40 mg PO BID [facility] Promethazine HCl (Phenergan) 25 mg PO Q6H PRN PRN Reason: Nausea Sucralfate (Carafate) 1 gm PO TID [facility] Sumatriptan Succinate (Imitrex) 50 mg PO PRN PRN PRN Reason: Migraine Headache Exam - Physical Exam Narrative exam: Not in cardiopulmonary distress. The patient appeared well nourished and normally developed. Vital signs as documented. Head exam is unremarkable. No scleral icterus . Neck is without jugular venous distension, thyromegaly, or carotid bruits. Lungs are clear to auscultation. Cardiac exam reveals regular rate and Rhythm. First and second heart sounds normal. No murmurs, rubs or gallops. Abdominal exam reveals normal bowel sounds, no masses, no organomegaly and no aortic enlargement. Extremities +2 pedal and pretibial edema, clean dressing on the right foot. [employer]: Alert and oriented 3. No focal weakness. - Constitutional Vitals: Temp Pulse Resp BP Pulse Ox 99 F 88 16 167/88 94 06/04/17 07:03 06/04/17 10:10 06/04/17 10:10 06/04/17 10:10 06/04/17 10:10 Results - Labs CBC & Chem 7: 06/04/17 07:00 06/04/17 07:00 Labs: Laboratory Last Values WBC 7.4 K/mm3 (4.5-11.0) 06/04/17 07:00 RBC 2.63 M/mm3 (3.65-5.03) L 06/04/17 07:00 Hgb 7.5 gm/dl (10.1-14.3) L 06/04/17 07:00 Hct 23.5 % (30.3-42.9) L 06/04/17 07:00 MCV 90 fl (79-97) 06/04/17 07:00 MCH 29 pg (28-32) 06/04/17 07:00 MCHC 32 % (30-34) 06/04/17 07:00 RDW 19.5 % (13.2-15.2) H 06/04/17 07:00 Plt Count 256 K/mm3 (140-440) 06/04/17 07:00 Sodium 138 mmol/L (137-145) 06/04/17 07:00 Potassium 4.3 mmol/L (3.6-5.0) 06/04/17 07:00 Chloride 93.6 mmol/L (98-107) L 06/04/17 07:00 Carbon Dioxide 29 mmol/L (22-30) 06/04/17 07:00 Anion Gap 20 mmol/L 06/04/17 07:00 BUN 21 mg/dL (7-17) H 06/04/17 07:00 Creatinine 5.1 mg/dL (0.7-1.2) H 06/04/17 07:00 Estimated GFR 12 ml/min 06/04/17 07:00 BUN/Creatinine Ratio 4.11 % 06/04/17 07:00 Glucose 117 mg/dL (65-100) H 06/04/17 07:00 Calcium 8.7 mg/dL (8.4-10.2) 06/04/17 07:00 - Imaging and Cardiology Chest x-ray: image reviewed (mild vascular congestion, no infiltrates) Assessment and Plan Assessment and plan: Fluid overload secondary to missed dialysis Gastroparesis Hypertension End-stage renal disease on hemodialysis Foot ulcer COPD -Nephrology is consulted for hemodialysis -Pain control for gastroparesis -Continue appropriate home medications -Wound care consult DVT prophylaxis -Heparin Disposition -Admit to telemetry. Advance Directives: Yes VTE prophylaxis?: Chemical Plan of care discussed with patient/family: Yes
[2017-06-04] MEDS: CARAFATE PO SCH ×3 (11:29→21:56)
[2017-06-04] MEDS: ROXICODONE PO SCH ×4 (11:29→22:04)
[2017-06-04] MEDS: PHENERGAN PO PRN ×2 (11:29→18:07)
[2017-06-04] MEDS: NEURONTIN PO SCH ×3 (11:29→21:56)
[2017-06-04] MEDS: PROTONIX PO SCH ×2 (11:30→21:56)
[2017-06-04] MEDS ORDERED: NACL 0.9% 100 ML IV PRN (11:36)
[2017-06-04] MEDS ORDERED: BENADRYL IV STA (12:46)
[2017-06-04] MEDS: HEPARIN SUB-Q SCH ×2 (14:00→21:55)
[2017-06-04] MEDS ORDERED: NACL 0.9 (PRIMING MACHINE ONLY DIALYSIS) MC ONE (14:16)
--- NOTE | 2017-06-04 15:13 | Consultation ---
History of Present Illness - Reason for Consult Consult date: 06/04/17 end stage renal disease Requesting physician: BRYON MOSCOSO - History of Present Illness 37-year-old lady with a history of type 2 Diabetes mellitus, hypertension complicated by end-stage renal disease on hemodialysis on a Tuesday, Tuesday and Tuesday schedule at [facility] dialysis. Patient was recently discharged from this hospital on June 03 after treatment with vancomycin and clindamycin for lower extremity cellulitis. She missed dialysis on June 01. Patient went to dialysis yesterday and noted shortness of breath and lower extremity swelling. Also complained of abdominal pain and body aches. Her symptoms improved with hemodialysis but worsened overnight and so she came to the hospital for further evaluation. Was called by the ER physician earlier about her worsening respiratory status and gave orders for dialysis. I saw the patient on dialysis. Patient however is drowsy and not able to give a history and so the history is obtained from review of the records. She received pain medications and Benadryl earlier. Past History Past Medical History: diabetes, ESRD, hypertension, renal failure, other ( gastroparesis) Past Surgical History: cholecystectomy, Other (port cath, AV left upper extremity AV fistula, right upper extremity AV graft, permacath placements, bilateral tubal ligation, laser photocoagulation of the retina) Social history: single, lives with family (with her 3 children. 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 denies: smoking, alcohol abuse, prescription drug abuse, IV drug use Family history: CAD (father of myocardial infarction at age 56), cancer ( Mother had lung cancer but is alive), diabetes (parents have diabetes mellitus) , hypertension (both parents have hypertension) Medications and Allergies Allergies Allergy/AdvReac Type Severity Reaction Status Date / Time lisinopril Allergy Shortness Verified 06/04/17 07:41 of Breath oxycodone HCl [From Percocet] Allergy Itching Verified 06/04/17 07:41 morphine AdvReac Anaphylaxis Verified 06/04/17 07:41 Home Medications Medication Instructions Recorded Confirmed Last Taken Type hydrALAZINE [Apresoline TAB] 100 mg PO TID #90 tab 03/06/17 06/04/17 06/03/17 Rx Pantoprazole [Protonix TAB] 40 mg PO BID #20 tablet 04/12/17 06/04/17 06/03/17 Rx Cyclobenzaprine HCl [Flexeril 5 MG 10 mg PO BID PRN 05/24/17 06/04/17 06/03/17 History TAB] Dicyclomine [Bentyl] 20 mg PO QID PRN 05/24/17 06/04/17 06/03/17 History Gabapentin [Neurontin] 100 mg PO TID 05/24/17 06/04/17 06/03/17 History Labetalol HCl 300 mg PO TID 05/24/17 06/04/17 06/03/17 History Losartan [Cozaar] 100 mg PO BID 05/24/17 06/04/17 06/03/17 History NIFEdipine XL [Procardia Xl] 90 mg PO QDAY 05/24/17 06/04/17 06/03/17 History Oxycodone HCl [Roxicodone TAB] 30 mg PO QID 05/24/17 06/04/17 06/03/17 History Promethazine [Phenergan TAB] 25 mg PO Q6H PRN 05/24/17 06/04/17 06/03/17 History Sucralfate [Carafate] 1 gm PO TID 05/24/17 06/04/17 06/03/17 History SUMAtriptan SUCCINATE [Imitrex] 50 mg PO PRN PRN 05/26/17 06/04/17 06/03/17 History Clindamycin [Clindamycin CAP] 150 mg PO TID #21 capsule 05/30/17 06/04/17 Rx Vancomycin HCl in Dextrose 5 % 1.5 gm IV 3XW #5 plast..bag 05/30/17 06/04/17 Rx [Vancomycin 1.5 Gram/250 ml-D5w] cloNIDine [Catapres] 0.2 mg PO Q8H #30 tablet 05/30/17 06/04/17 06/03/17 Rx Active Meds: Active Medications Clonidine HCl (Catapres) 0.2 mg PO Q8H [facility] Cyclobenzaprine HCl (Flexeril) 10 mg PO BID PRN PRN Reason: Muscle Spasm Dicyclomine HCl (Bentyl) 20 mg PO QID PRN PRN Reason: Pain Gabapentin (Neurontin) 100 mg PO TID [facility] Last Admin: 06/04/17 11:29 Dose: 100 mg Heparin Sodium (Porcine) (Heparin) 5,000 unit SUB-Q Q8HR [facility] Hydralazine HCl (Apresoline) 100 mg PO TID [facility] Sodium Chloride (Nacl 0.9%) 100 mls @ 999 mls/hr IV CELENA PRN PRN Reason: Hypotension Labetalol HCl (Normodyne) 300 mg PO TID [facility] Losartan Potassium (Cozaar) 100 mg PO BID [facility] Nifedipine (Procardia Xl) 90 mg PO QDAY [facility] Oxycodone HCl (Roxicodone) 30 mg PO QID [facility] Last Admin: 06/04/17 11:29 Dose: 30 mg Pantoprazole Sodium (Protonix) 40 mg PO BID [facility] Last Admin: 06/04/17 11:30 Dose: 40 mg Promethazine HCl (Phenergan) 25 mg PO Q6H PRN PRN Reason: Nausea Last Admin: 06/04/17 11:29 Dose: 25 mg Sucralfate (Carafate) 1 gm PO TID [facility] Last Admin: 06/04/17 11:29 Dose: 1 gm Sumatriptan Succinate (Imitrex) 50 mg PO PRN PRN PRN Reason: Migraine Headache Review of Systems ROS unobtainable: due to mental status Exam - Vital Signs Vital signs: Vital Signs Temp Pulse BP Pulse Ox 100.2 F H 94 H 153/87 99 06/04/17 04:40 06/04/17 04:40 06/04/17 04:40 06/04/17 04:40 - Physical Exam Narrative exam: Blood pressure 185/104 pulse 83 ultrafiltration goal 4.5 L Qb 400 Qd 800 Young -[place] female lying in bed in no acute distress HEENT normocephalic atraumatic, pupils equal reactive to light, pink, clear oropharynx Neck supple, no thyromegaly no jugular venous distention CVS S1-S2 regular rate rhythm without murmur, rub or gallop Chest Diminished breath sounds in lower zones Abdomen soft nondistended nontender no organomegaly no bruit bowel sounds present Extremities no edema no cyanosis or clubbing Genitourinary deferred Neuro awake, alert oriented x3 no gross deficit Results - Lab Results 06/04/17 07:00 06/04/17 07:00 Most recent lab results Calcium 8.7 mg/dL (8.4-10.2) 06/04/17 07:00 Assessment and Plan - Patient Problems (1) Acute pulmonary edema Current Visit: Yes Status: Acute Plan to address problem: Acute respiratory failure secondary to pulmonary edema secondary to fluid overload. Urgent hemodialysis ongoing. Reevaluate respiratory status after dialysis (2) Uncontrolled type 2 diabetes mellitus with gastroparesis Current Visit: Yes Status: Acute Plan to address problem: Antiemetics. Consider GI consultation if not improving (3) Fluid overload Current Visit: Yes Status: Acute Qualifiers: Hypervolemia type: H Plan to address problem: Fluid removal with dialysis (4) Hypertensive chronic kidney disease with stage 5 chronic kidney disease or end stage renal disease Current Visit: Yes Status: Acute Plan to address problem: Resume antihypertensives medications. Follow-up blood pressure after fluid removal on dialysis (5) Diabetic foot ulcer associated with type 2 diabetes mellitus Current Visit: Yes Status: Acute Qualifiers: Diabetic foot ulcer location: D Laterality: L Non-pressure ulcer stage: N Plan to address problem: Wound care consult
[2017-06-04] MEDS ORDERED: BENADRYL ONE (16:35)
[2017-06-04] MEDS: PROCARDIA XL PO SCH (18:39)
--- NOTE | 2017-06-05 01:01 | Cat Scan Report ---
FINAL REPORT PROCEDURE: CT ABDOMEN PELVIS WO CON TECHNIQUE: Computerized axial tomography of the abdomen and pelvis was performed without intravenous contrast. This study is performed without intravascular contrast material and its sensitivity for abdominal and pelvic pathology, including neoplasms, inflammation, abscess, free fluid, thrombosis, arterial dissection and infarction, is reduced compared with a contrast enhanced study. HISTORY: abdominal pain 07/26 COMPARISON: 04/04/2017 FINDINGS: Visualized lower thorax: There is moderate atelectasis, vascular congestion and effusions lower lungs. The heart size is enlarged.. Liver: The liver is enlarged.. Spleen: Spleen has a normal size attenuation.. Gallbladder and biliary system: Gallbladder is absent. No dilatation of the biliary ductal system. Pancreas: Normal. Adrenals: Normal. Kidneys: Both kidneys have a normal size. No hydronephrosis. No renal stones or masses. GI tract: The stomach is normal. A small hiatal hernia is identified. Small bowel has a normal caliber. No obstruction, ileus or enteritis. There is significant fecal debris throughout the colon. Findings consistent with constipation. The appendix is not visualized on this study.. Lymph nodes and mesentery: Normal. Vasculature: Normal. Bladder: Normal. Reproductive organs: Normal. Peritoneum: There is minimal fluid identified in the lower pelvis.. Musculoskeletal structures: There is mild degenerative changes in the spine. There is been previous pinning of the femoral neck on the right, the hardware causes some artifact in the pelvis.. Other: There is diffuse soft tissue anasarca.. IMPRESSION: There is no evidence of intestinal or urinary tract obstruction. No ileus or enteritis. Significant fecal debris throughout the colon consistent with constipation. Hepatomegaly is again identified and unchanged. Vascular congestion with bilateral lower lung atelectasis and moderate effusions. The heart size is enlarged but stable. Diffuse soft tissue anasarca. Minimal fluid identified in the lower pelvis. No pelvic masses..
[2017-06-05] MEDS: CATAPRES PO SCH ×3 (01:02→16:25)
[2017-06-05] MEDS: BENADRYL IV PRN ×3 (01:15→16:21)
[2017-06-05] MEDS: HEPARIN SUB-Q SCH ×3 (05:17→21:22)
[2017-06-05 06:19] LABS: Basophils % (Auto) 0.5 % (0.0-1.8); Eosinophils % (Auto) 1.7 % (0.0-4.3); Hematocrit 20.7 % (30.3-42.9); Hemoglobin 6.8 gm/dl (10.1-14.3); Mean Corpuscular HGB Conc 33 % (30-34); Mean Corpuscular Hemoglobin 29 pg (28-32); Mean Corpuscular Volume 90 fl (79-97); Platelet Count 220 K/mm3 (140-440); Red Blood Count 2.31 M/mm3 (3.65-5.03); Red Cell Distribution Width 18.6 % (13.2-15.2); White Blood Count 6.3 K/mm3 (4.5-11.0)
[2017-06-05 06:30] LABS: BUN/Creatinine Ratio 3.24; Calcium 8.3 mg/dL (8.4-10.2); Chloride 94.8 mmol/L (98-107); Potassium 4.4 mmol/L (3.6-5.0)
[2017-06-05] MEDS ORDERED: NACL 0.9% 500 ML 500 ML IV ONE ×2 (07:49→15:46)
[2017-06-05] MEDS: CARAFATE PO SCH ×3 (08:59→21:22)
[2017-06-05] MEDS: NORMODYNE PO SCH ×3 (09:01→21:22)
[2017-06-05] MEDS: NEURONTIN PO SCH ×3 (09:01→21:22)
[2017-06-05] MEDS: APRESOLINE PO SCH ×3 (09:02→21:22)
[2017-06-05] MEDS: PROTONIX PO SCH ×2 (09:14→21:21)
[2017-06-05] MEDS: PROCARDIA XL PO SCH (09:14)
[2017-06-05] MEDS: COZAAR PO SCH ×2 (09:15→21:21)
[2017-06-05] MEDS: ROXICODONE PO SCH ×4 (10:16→21:21)
--- NOTE | 2017-06-05 11:59 | Progress Note ---
Assessment and Plan Assessment and plan: Fluid overload secondary to missed dialysis Gastroparesis Hypertension End-stage renal disease on hemodialysis Foot ulcer COPD Severe anemia - patient has 2 episodes of fever - Will put her on emperic antibiotics - Will consult ID -Transfuse1 unit of blood -Nephrology consult appreciated -Patient finished recently IV vancomycin and clindamycin recently -Pain control for gastroparesis -Continue appropriate home medications -Wound care consult, has an appointment with Dr Lopez as an outpatient DVT prophylaxis -Heparin Disposition -Continue inpatient care History Interval history: Patient was seen and evaluated this morning, patient is not in pain or distress Hospitalist Physical - Physical exam Narrative exam: Not in cardiopulmonary distress. The patient appeared well nourished and normally developed. Vital signs as documented. Head exam is unremarkable. No scleral icterus . Neck is without jugular venous distension, thyromegaly, or carotid bruits. Lungs are clear to auscultation. Cardiac exam reveals regular rate and Rhythm. First and second heart sounds normal. No murmurs, rubs or gallops. Abdominal exam reveals normal bowel sounds, no masses, no organomegaly and no aortic enlargement. Extremities +2 pedal and pretibial edema, clean dressing on the right foot. 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 No focal weakness. - Constitutional Vitals: Temp Pulse Resp BP Pulse Ox 100.8 F H 83 18 136/67 100 06/05/17 11:09 06/05/17 11:09 06/05/17 11:09 06/05/17 11:09 06/05/17 11:09 Results - Labs CBC & Chem 7: 06/05/17 04:00 06/05/17 04:00 Labs: Laboratory Last Values WBC 6.3 K/mm3 (4.5-11.0) 06/05/17 04:00 RBC 2.31 M/mm3 (3.65-5.03) L 06/05/17 04:00 Hgb 6.8 gm/dl (10.1-14.3) L 06/05/17 04:00 Hct 20.7 % (30.3-42.9) L 06/05/17 04:00 MCV 90 fl (79-97) 06/05/17 04:00 MCH 29 pg (28-32) 06/05/17 04:00 MCHC 33 % (30-34) 06/05/17 04:00 RDW 18.6 % (13.2-15.2) H 06/05/17 04:00 Plt Count 220 K/mm3 (140-440) 06/05/17 04:00 Lymph % (Auto) 11.2 % (13.4-35.0) L 06/05/17 04:00 Gaston % (Auto) 6.8 % (0.0-7.3) 06/05/17 04:00 Eos % (Auto) 1.7 % (0.0-4.3) 06/05/17 04:00 Baso % (Auto) 0.5 % (0.0-1.8) 06/05/17 04:00 Lymph # 0.7 K/mm3 (1.2-5.4) L 06/05/17 04:00 Gaston # 0.4 K/mm3 (0.0-0.8) 06/05/17 04:00 Eos # 0.1 K/mm3 (0.0-0.4) 06/05/17 04:00 Baso # 0.0 K/mm3 (0.0-0.1) 06/05/17 04:00 Seg Neutrophils % 79.8 % (40.0-70.0) H 06/05/17 04:00 Seg Neutrophils # 5.0 K/mm3 (1.8-7.7) 06/05/17 04:00 Sodium 137 mmol/L (137-145) 06/05/17 04:00 Potassium 4.4 mmol/L (3.6-5.0) 06/05/17 04:00 Chloride 94.8 mmol/L (98-107) L 06/05/17 04:00 Carbon Dioxide 29 mmol/L (22-30) 06/05/17 04:00 Anion Gap 18 mmol/L 06/05/17 04:00 BUN 12 mg/dL (7-17) 06/05/17 04:00 Creatinine 3.7 mg/dL (0.7-1.2) H 06/05/17 04:00 Estimated GFR 17 ml/min 06/05/17 04:00 BUN/Creatinine Ratio 3.24 % 06/05/17 04:00 Glucose 103 mg/dL (65-100) H 06/05/17 04:00 POC Glucose 137 (70-105) H 06/04/17 21:14 Calcium 8.3 mg/dL (8.4-10.2) L 06/05/17 04:00 Blood Type B POSITIVE 06/05/17 08:45 Antibody Screen Positive 06/05/17 08:45 Antibody Identification Anti-E 06/05/17 08:45 Direct Antiglob Test Negative 06/05/17 08:45 SUSANNAH, Poly Interpret Negative 06/05/17 08:45 Crossmatch See Detail 06/05/17 08:45
[2017-06-05] MEDS: ZOSYN/NS 2.25 GM/50ML 2.25 GM/50 ML BAG IV SCH ×2 (12:57→22:00)
[2017-06-05] MEDS ORDERED: VANCOMYCIN PHARMACY TO DOSE IV SCH (13:00)
[2017-06-05] MEDS ORDERED: NACL 0.9% 500 ML 500 ML ONE (13:55)
[2017-06-05] MEDS ORDERED: VANCOMYCIN VIAL 750 MG in NACL 0.9% 250ML 250 ML IV SCH (14:00)
--- NOTE | 2017-06-05 16:11 | Progress Note ---
Assessment and Plan - Patient Problems (1) Acute pulmonary edema Current Visit: Yes Status: Acute Plan to address problem: Acute respiratory failure secondary to pulmonary edema secondary to fluid overload. Improved with dialysis (2) Uncontrolled type 2 diabetes mellitus with gastroparesis Current Visit: Yes Status: Acute Plan to address problem: Antiemetics. (3) Fluid overload Current Visit: Yes Status: Acute Qualifiers: Hypervolemia type: H Plan to address problem: Improved with Fluid removal on dialysis (4) Hypertensive chronic kidney disease with stage 5 chronic kidney disease or end stage renal disease Current Visit: Yes Status: Acute Plan to address problem: Resume antihypertensives medications. Follow-up blood pressure after fluid removal on dialysis (5) Diabetic foot ulcer associated with type 2 diabetes mellitus Current Visit: Yes Status: Acute Qualifiers: Diabetic foot ulcer location: D Laterality: L Non-pressure ulcer stage: N Plan to address problem: Wound care consult patient had episodes of fever and so cultures have been obtained and empiric antibiotics started. Infectious diseases also consulted by primary attending. Follow-up (6) End stage renal disease on dialysis Current Visit: Yes Status: Chronic Plan to address problem: Hemodialysis on a Tuesday, Tuesday and Tuesday schedule. Next dialysis in the morning Subjective Date of service: 06/05/17 Principal diagnosis: end-stage renal disease Interval history: Patient seen lying in bed. Complains of abdominal pain. No nausea or vomiting now Objective - Exam Narrative Exam: Young -[place] female lying in bed in no acute distress HEENT normocephalic atraumatic, pupils equal reactive to light, pink, clear oropharynx Neck supple, no thyromegaly no jugular venous distention CVS S1-S2 regular rate rhythm without murmur, rub or gallop Chest Diminished breath sounds in lower zones Abdomen soft nondistended nontender no organomegaly no bruit bowel sounds present Extremities no edema no cyanosis or clubbing Neuro awake, alert oriented x3 no gross deficit - Vital Signs Vital signs: Vital Signs - 12hr 06/05/17 06/05/17 06/05/17 04:51 09:00 09:01 Temperature 99.4 F Pulse Rate 88 94 H 94 H Respiratory 18 Rate Blood Pressure 142/75 132/69 132/69 O2 Sat by Pulse 94 Oximetry 06/05/17 06/05/17 06/05/17 09:15 10:00 11:09 Temperature 100.8 F H Pulse Rate 94 H 83 Respiratory 18 Rate Blood Pressure 132/69 136/67 O2 Sat by Pulse 97 100 Oximetry 06/05/17 06/05/17 13:29 16:00 Temperature 98.7 F Pulse Rate 82 79 Respiratory 18 Rate Blood Pressure 138/77 160/74 O2 Sat by Pulse 95 Oximetry - Lab 06/05/17 04:00 06/05/17 04:00 Most recent lab results Calcium 8.3 mg/dL (8.4-10.2) L 06/05/17 04:00
[2017-06-05] MEDS ORDERED: NACL 0.9% 100 ML IV PRN (16:12)
[2017-06-05] MEDS: PHENERGAN PO PRN (16:28)
[2017-06-05] MEDS ORDERED: ZOSYN/NS 4.5GM/100ML 4.5 GM/100 ML VIAL IV SCH (18:00)
--- NOTE | 2017-06-05 19:44 | Consultation ---
History of Present Illness - Reason for Consult Consult date: 06/05/17 right great toe diabetic ulcer Requesting physician: MARQUEZ BARFIELD - History of Present Illness This is a 37 year-old female with history of diabetes, gastroparesis, COPD, astham, CHF, and ESRD on HD via AVF, admitted on 06/04/2017 due to 2-day history of nausea, vomiting, abdominal pain, SOB and legs edema. Patient reports she was having on/off abdominal pain which became 10/10, diffuse. She missed her HD due to transportation issues. She reports she developed a right great toe ulcer draining foul-smelling secretion for 4 weeks. Of note, she was recently admitted 05/24-05/30/17 due to RUE cellulitis at the AVF site. She had an arm US and AVF had inflammation but no abscess or thrombus seen. She received vancomycin and unasyn IV and was discharged home on PO clindamycin for 7 days. She was referred to see outpatient wound care. She also was evaluated by IR and was recommeded to have a fistulogram as outpatient. In the ED, temperature was 100.2, HR 94, WBC 7.4, CXR + mild pulmonary edema. Microbiology: Blood cultures: 06/04 ngtd Urine cultures: Respiratory cultures: Wound cultures: Stool cultures: Current Antimicrobials: Zosyn 06/05 Vancomycin 06/05 Past History Past Medical History: diabetes, ESRD, hypertension, renal failure, other ( gastroparesis) Past Surgical History: cholecystectomy, Other (port cath, AV left upper extremity AV fistula, right upper extremity AV graft, permacath placements, bilateral tubal ligation, laser photocoagulation of the retina) Social history: single, lives with family (with her 3 children. 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 denies: smoking, alcohol abuse, prescription drug abuse, IV drug use Family history: CAD (father of myocardial infarction at age 56), cancer ( Mother had lung cancer but is alive), diabetes (parents have diabetes mellitus) , hypertension (both parents have hypertension) Medications and Allergies Allergies Allergy/AdvReac Type Severity Reaction Status Date / Time lisinopril Allergy Shortness Verified 06/04/17 07:41 of Breath oxycodone HCl [From Percocet] Allergy Itching Verified 06/04/17 07:41 morphine AdvReac Anaphylaxis Verified 06/04/17 07:41 Home Medications Medication Instructions Recorded Confirmed Last Taken Type hydrALAZINE [Apresoline TAB] 100 mg PO TID #90 tab 03/06/17 06/04/17 06/03/17 Rx Pantoprazole [Protonix TAB] 40 mg PO BID #20 tablet 04/12/17 06/04/17 06/03/17 Rx Cyclobenzaprine HCl [Flexeril 5 MG 10 mg PO BID PRN 05/24/17 06/04/17 06/03/17 History TAB] Dicyclomine [Bentyl] 20 mg PO QID PRN 05/24/17 06/04/17 06/03/17 History Gabapentin [Neurontin] 100 mg PO TID 05/24/17 06/04/17 06/03/17 History Labetalol HCl 300 mg PO TID 05/24/17 06/04/17 06/03/17 History Losartan [Cozaar] 100 mg PO BID 05/24/17 06/04/17 06/03/17 History NIFEdipine XL [Procardia Xl] 90 mg PO QDAY 05/24/17 06/04/17 06/03/17 History Oxycodone HCl [Roxicodone TAB] 30 mg PO QID 05/24/17 06/04/17 06/03/17 History Promethazine [Phenergan TAB] 25 mg PO Q6H PRN 05/24/17 06/04/17 06/03/17 History Sucralfate [Carafate] 1 gm PO TID 05/24/17 06/04/17 06/03/17 History SUMAtriptan SUCCINATE [Imitrex] 50 mg PO PRN PRN 05/26/17 06/04/17 06/03/17 History Clindamycin [Clindamycin CAP] 150 mg PO TID #21 capsule 05/30/17 06/04/17 Rx Vancomycin HCl in Dextrose 5 % 1.5 gm IV 3XW #5 plast..bag 05/30/17 06/04/17 Rx [Vancomycin 1.5 Gram/250 ml-D5w] cloNIDine [Catapres] 0.2 mg PO Q8H #30 tablet 05/30/17 06/04/17 06/03/17 Rx Active Meds: Active Medications Clonidine HCl (Catapres) 0.2 mg PO Q8H [facility] Last Admin: 06/05/17 16:25 Dose: 0.2 mg Cyclobenzaprine HCl (Flexeril) 10 mg PO BID PRN PRN Reason: Muscle Spasm Dicyclomine HCl (Bentyl) 20 mg PO QID PRN PRN Reason: Pain Diphenhydramine HCl (Benadryl) 25 mg IV Q8H PRN PRN Reason: Itching Last Admin: 06/05/17 16:21 Dose: 25 mg Epoetin Armando (Epogen) 20,000 unit IV CELENA PRN PRN Reason: hemodialysis Gabapentin (Neurontin) 100 mg PO TID [facility] Last Admin: 06/05/17 13:28 Dose: 100 mg Heparin Sodium (Porcine) (Heparin) 5,000 unit SUB-Q Q8HR [facility] Last Admin: 06/05/17 14:00 Dose: Not Given Hydralazine HCl (Apresoline) 100 mg PO TID [facility] Last Admin: 06/05/17 13:29 Dose: 100 mg Piperacillin Sod/Tazobactam Sod (Zosyn/Ns 2.25 Gm/50ml) 2.25 gm in 50 mls @ 100 mls/hr IV Q8HR [facility] Last Admin: 06/05/17 12:57 Dose: 100 mls/hr Vancomycin HCl 750 mg/ Sodium (Chloride) 250 mls @ 166.667 mls/hr IV Q24H [facility] Last Admin: 06/05/17 13:23 Dose: 166.667 mls/hr Sodium Chloride (Nacl 0.9% 500 Ml) 500 mls @ 50 mls/hr IV ONCE ONE Stop: 06/06/17 01:45 Sodium Chloride (Nacl 0.9%) 100 mls @ 999 mls/hr IV CELENA PRN PRN Reason: Hypotension Labetalol HCl (Normodyne) 300 mg PO TID [facility] Last Admin: 06/05/17 13:29 Dose: 300 mg Losartan Potassium (Cozaar) 100 mg PO BID [facility] Last Admin: 06/05/17 09:15 Dose: 100 mg Nifedipine (Procardia Xl) 90 mg PO QDAY [facility] Last Admin: 06/05/17 09:14 Dose: 90 mg Oxycodone HCl (Roxicodone) 30 mg PO QID [facility] Last Admin: 06/05/17 18:02 Dose: 30 mg Pantoprazole Sodium (Protonix) 40 mg PO BID [facility] Last Admin: 06/05/17 09:14 Dose: 40 mg Promethazine HCl (Phenergan) 25 mg PO Q6H PRN PRN Reason: Nausea Last Admin: 06/05/17 16:28 Dose: 25 mg Sucralfate (Carafate) 1 gm PO TID [facility] Last Admin: 06/05/17 13:28 Dose: 1 gm Sumatriptan Succinate (Imitrex) 50 mg PO PRN PRN PRN Reason: Migraine Headache Vancomycin HCl (Vancomycin Pharmacy To Dose) 1 each IV PKCONSULT [facility] PRN Reason: Protocol Review of Systems Constitutional: chills Ears, nose, mouth and throat: no nasal congestion, no nasal discharge, no sinus pressure Cardiovascular: edema, shortness of breath, no chest pain, no orthopnea Respiratory: cough, no hemoptysis Gastrointestinal: abdominal pain, nausea, vomiting Genitourinary Female: no pelvic pain, no dysuria, no urinary frequency Menstruation: no currently menstrual Rectal: no pain Musculoskeletal: no low back pain Integumentary: wounds Neurological: no head injury, no seizures Psychiatric: no anxiety Physical Examination - Physical Exam Narrative exam: General appearance: Alert in NAD, conversant Eyes: PERRLA non icteric conjunctivae HENT: Atraumatic; oropharynx clear with moist mucous membranes and no mucosal ulcerations/no oral thrush; normal hard and soft palate. Normal external ears. Neck: Trachea midline; supple, no thyromegaly or lymphadenopathy Lungs: CTA, with normal respiratory effort and no intercostal retractions CV: RRR, no murmur Abdomen: Soft, non-tender; no masses or hepatosplenomegaly Extremities: + peripheral edema + right AVF looks ok. +right great toe ulcer surrounding by callus, non drainage Skin: Normal temperature, turgor and texture; no rash, ulcers or subcutaneous nodules Psych: Appropriate affect, alert and oriented to person, place and time. Neuro: alert and oriented x 3. Moving all extermities Lines: No CVL / PICC - Constitutional Vitals: Vital Signs Temp Pulse Resp BP Pulse Ox 98.5 F 75 20 125/68 96 08/20/17 17:55 06/05/17 19:17 06/05/17 17:55 06/05/17 17:55 06/05/17 17:55 Temperature -Last 24 Hours Temperature 98.5 F Temperature 98.1 F Temperature 98.8 F Temperature 98.2 F Temperature 98.7 F Temperature 98.4 F Temperature 100.8 F Temperature 99.4 F Temperature 100.8 F Temperature 99.8 F Results - Labs CBC & Chem 7: 06/05/17 04:00 06/05/17 04:00 Labs: Abnormal lab results 06/04/17 06/05/17 06/05/17 Range/Units 21:14 04:00 04:00 RBC 2.31 L (3.65-5.03) M/mm3 Hgb 6.8 L (10.1-14.3) gm/dl Hct 20.7 L (30.3-42.9) % RDW 18.6 H (13.2-15.2) % Lymph % (Auto) 11.2 L (13.4-35.0) % Lymph # 0.7 L (1.2-5.4) K/mm3 Seg Neutrophils % 79.8 H (40.0-70.0) % Chloride 94.8 L (98-107) mmol/L Creatinine 3.7 H (0.7-1.2) mg/dL Glucose 103 H (65-100) mg/dL POC Glucose 137 H (70-105) Calcium 8.3 L (8.4-10.2) mg/dL Crossmatch 06/05/17 06/05/17 06/05/17 Range/Units 07:28 08:45 11:05 RBC (3.65-5.03) M/mm3 Hgb (10.1-14.3) gm/dl Hct (30.3-42.9) % RDW (13.2-15.2) % Lymph % (Auto) (13.4-35.0) % Lymph # (1.2-5.4) K/mm3 Seg Neutrophils % (40.0-70.0) % Chloride (98-107) mmol/L Creatinine (0.7-1.2) mg/dL Glucose (65-100) mg/dL POC Glucose 120 H 168 H (70-105) Calcium (8.4-10.2) mg/dL Crossmatch See Detail 06/05/17 Range/Units 15:43 RBC (3.65-5.03) M/mm3 Hgb (10.1-14.3) gm/dl Hct (30.3-42.9) % RDW (13.2-15.2) % Lymph % (Auto) (13.4-35.0) % Lymph # (1.2-5.4) K/mm3 Seg Neutrophils % (40.0-70.0) % Chloride (98-107) mmol/L Creatinine (0.7-1.2) mg/dL Glucose (65-100) mg/dL POC Glucose 151 H (70-105) Calcium (8.4-10.2) mg/dL Crossmatch - Imaging and Cardiology Chest x-ray: report reviewed (mild pulmonary edema ) Assessment and Plan Assessment: 1) SIRS: Present on admission, manifested by fever and tachycardia. Unclear etiology ? infected right great toe diabetic ulcer +/- occult source. 2) Right foot diabetic ulcer at great toe ? r/o osteomyelitis 3) Recent right arm AVF cellulitis - US negative for abscess / thrombus 4) Diabetes 5) Gastroparesis 6) ESRD on HD via AVF Plan: -follow-up blood cultures -check UA and urine culture -obtain C-reactive protein (CRP) -obtain MRI right foot w/o gadolinium -continue vancomycin and zosyn renally dosed Thank you Dr Rodríguez for your consultation, will follow up with you. Cat Marin MD Infectious Diseases Specialist [facility] M [phone] O [phone]
[2017-06-06] MEDS: BENADRYL IV PRN ×3 (00:24→18:34)
[2017-06-06] MEDS: CATAPRES PO SCH ×3 (00:27→18:18)
[2017-06-06] MEDS: ZOSYN/NS 2.25 GM/50ML 2.25 GM/50 ML BAG IV SCH ×3 (05:58→22:23)
[2017-06-06] MEDS: HEPARIN SUB-Q SCH ×4 (05:59→22:22)
--- NOTE | 2017-06-06 06:27 | Admit Criteria Form ---
Admission Criteria Documentation: RENAL FAILURE, CHRONIC Clinical Indications for Admission to Inpatient Care (Place 'X' for any and all applicable criteria): Admission is indicated for 1 or more of the following(1)(2)(3)(4)(5)(6)(7)(8) [X ]I. Inpatient admission required[B] rather than observation care (see Renal Failure, Chronic: Observation Care) because of 1 or more of the following: [ ]a. Hemodynamic instability [ ]b) Uremic symptoms (eg, pericarditis, pleural effusion, nausea, vomiting) too severe for, or not responsive (eg, for over 24 hours) to, emergency department or observation care dialysis or treatment regimen [ ]c) Significant respiratory findings (eg, pulmonary edema) that are severe (eg, Hypoxemia) or persist despite observation care treatment (eg, Tachypnea) [ ]d) Clinically significant metabolic abnormality (eg, acidosis) that is severe or persists despite observation care treatment [ ]e) Clinically significant electrolyte abnormality that requires inpatient care (eg, hyperkalemia with severe ECG findings)[C](14)(15) [ ]f) Hypertension requiring inpatient care (eg, SBP > 220 mm Hg or DBP > 120 mm Hg despite observation care treatment) [ ]g) Urgent treatment of renal failure (eg, dialysis) necessary on inpatient basis (eg, not feasible or appropriate in outpatient or observational care setting) as indicated by 1 or more of the followin) Vascular access not previously established or not useable (eg, treatment-resistant blockage) such that new temporary access is needed that is not appropriate for other than short-term inpatient usage (eg, femoral access until other access established or repaired) 2) Patient new to dialysis and timing of subsequent dialysis (eg, beyond that provided in observation care) unclear such that inpatient monitoring is necessary as patient may need repeat dialysis sooner than is routine [ ]h) Continuous intravenous infusion of anticoagulation, platelet inhibitor, vasoactive, or antiarrhythmic medication [ ] i) Pulmonary artery catheter monitoring [ ]j) Temporary pacemaker placement [ ]k) Emergent pericardiocentesis [ X]l) Other condition, treatment, or monitoring requiring inpatient admission [ ]II. Unexplained syncope [A] [ ]III. Recurrent seizures [ ]IV. Severe infections not treatable in outpatient setting (eg, peritonitis)(9 ) [ ]V. Cardiac arrhythmias of immediate concern [ ]. Encephalopathy (eg. altered mental status that is severe or persistent) [ ]VII.Bleeding abnormalities (eg, platelet dysfunction) with active (eg, gastrointestinal) bleeding Extended stay beyond goal length of stay may be needed for (3)(4)(35)(36): [ ]a) Continuing uremic complications [ ]b) Comorbidities or complications The original [facility] [place] content created by [email or web address] has been revised. The portions of the content which have been revised are identified through the use of italic text or in bold, and [facility] [employer] has neither reviewed nor approved the modified material. All other unmodified content is copyright [facility]. Please see references footnoted in the original [facility] [employer] edition 2017 Admission Criteria Met: Yes
[2017-06-06] MEDS: NORMODYNE PO SCH ×3 (08:37→20:35)
[2017-06-06] MEDS: CARAFATE PO SCH ×3 (08:37→20:37)
[2017-06-06] MEDS: NEURONTIN PO SCH ×3 (08:37→20:37)
[2017-06-06] MEDS: APRESOLINE PO SCH ×3 (08:37→20:37)
--- NOTE | 2017-06-06 10:05 | Progress Note ---
Assessment and Plan Assessment: 1) SIRS: fever and tachycardia resolved. Unclear etiology ? infected right great toe diabetic ulcer +/- AVF site infection. 2) Right foot diabetic ulcer at great toe ? r/o osteomyelitis. CRP 7. 3) Recent right arm AVF cellulitis - US negative for abscess / thrombus - still c/o tenderness and edema 4) Diabetes 5) Gastroparesis 6) ESRD on HD via AVF 7) Port in place Plan: -IR eval AVF site -follow-up blood culture -obtain MRI right foot w/o gadolinium -continue vancomycin and zosyn renally dosed -Discussed with patient, Dr Rodríguez and Dr Luna IR Thank you Dr Rodríguez for your consultation, will follow up with you. Cat Marin MD Infectious Diseases Specialist [facility] M [phone] O [phone] Subjective Date of service: 06/06/17 Principal diagnosis: end-stage renal disease Interval history: Patient feels better, afebrile, no new spikes last 24h. She is complaining of edema and tenderness at the right arm at AVF site. Microbiology: Blood cultures: 06/04 ngtd Urine cultures: Respiratory cultures: Wound cultures: Stool cultures: Current Antimicrobials: Zosyn 06/05 Vancomycin 06/05 Objective - Exam Narrative Exam: General appearance: Alert in NAD, conversant Eyes: PERRLA non icteric conjunctivae HENT: Atraumatic; oropharynx clear with moist mucous membranes and no mucosal ulcerations/no oral thrush; normal hard and soft palate. Normal external ears. Neck: Trachea midline; supple, no thyromegaly or lymphadenopathy Lungs: CTA, with normal respiratory effort and no intercostal retractions CV: RRR, no murmur Abdomen: Soft, non-tender; no masses or hepatosplenomegaly Extremities: + peripheral edema +right great toe ulcer surrounding by callus, non drainage Skin: + right arm AVF site with tenderness and edema no erythema Psych: Appropriate affect, alert and oriented to person, place and time. Neuro: alert and oriented x 3. Moving all extermities Lines: No CVL / PICC - Constitutional Vitals: Vital Signs Temp Pulse Resp BP Pulse Ox 98.2 F 73 20 161/78 98 06/06/17 08:10 06/06/17 08:37 06/06/17 08:10 06/06/17 08:37 06/06/17 08:10 Temperature -Last 24 Hours Temperature 98.2 F Temperature 98.6 F Temperature 98.7 F Temperature 98.3 F Temperature 98.5 F Temperature 98.1 F Temperature 98.8 F Temperature 98.2 F Temperature 98.7 F Temperature 98.4 F Temperature 100.8 F - Labs CBC & Chem 7: 06/05/17 04:00 06/05/17 04:00 Labs: Abnormal lab results 06/05/17 06/05/17 06/05/17 Range/Units 07:28 08:45 11:05 POC Glucose 120 H 168 H (70-105) C-Reactive Protein (0.00-1.30) mg/dL Crossmatch See Detail 06/05/17 06/05/17 06/05/17 Range/Units 15:43 21:40 21:54 POC Glucose 151 H 156 H (70-105) C-Reactive Protein 7.00 H (0.00-1.30) mg/dL Crossmatch 06/06/17 Range/Units 08:12 POC Glucose 123 H (70-105) C-Reactive Protein (0.00-1.30) mg/dL Crossmatch
[2017-06-06] MEDS ORDERED: DILAUDID IV NR (10:13)
[2017-06-06] MEDS: PROTONIX PO SCH ×2 (10:40→22:21)
--- NOTE | 2017-06-06 11:27 | Consultation ---
History of Present Illness - Reason for Consult Consult date: 06/06/17 [place] fistula - History of Present Illness Patient with history of end-stage renal disease on hemodialysis and gastroparesis who presented on morning with abdominal pain. The patient had previously been hospitalized and during that hospitalization was noted to have cellulitis and stenosis involving her right upper extremity fistula. She was scheduled to have this treated however, she will return to the hospital before this could be performed. Additionally, the patient has a right chest wall Port-A-Cath. The patient has dialyzed a twice since her admission without significant difficulty however, she still has pain at the inferior aspect of her fistula. Past History Past Medical History: diabetes, ESRD, hypertension, renal failure, other ( gastroparesis) Past Surgical History: cholecystectomy, Other (port cath, AV left upper extremity AV fistula, right upper extremity AV graft, permacath placements, bilateral tubal ligation, laser photocoagulation of the retina) Social history: single, lives with family (with her 3 children. 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 denies: smoking, alcohol abuse, prescription drug abuse, IV drug use Family history: CAD (father of myocardial infarction at age 56), cancer ( Mother had lung cancer but is alive), diabetes (parents have diabetes mellitus) , hypertension (both parents have hypertension) Medications and Allergies Allergies Allergy/AdvReac Type Severity Reaction Status Date / Time lisinopril Allergy Shortness Verified 06/04/17 07:41 of Breath oxycodone HCl [From Percocet] Allergy Itching Verified 06/04/17 07:41 morphine AdvReac Anaphylaxis Verified 06/04/17 07:41 Home Medications Medication Instructions Recorded Confirmed Last Taken Type hydrALAZINE [Apresoline TAB] 100 mg PO TID #90 tab 03/06/17 06/04/17 06/03/17 Rx Pantoprazole [Protonix TAB] 40 mg PO BID #20 tablet 04/12/17 06/04/17 06/03/17 Rx Cyclobenzaprine HCl [Flexeril 5 MG 10 mg PO BID PRN 05/24/17 06/04/17 06/03/17 History TAB] Dicyclomine [Bentyl] 20 mg PO QID PRN 05/24/17 06/04/17 06/03/17 History Gabapentin [Neurontin] 100 mg PO TID 05/24/17 06/04/17 06/03/17 History Labetalol HCl 300 mg PO TID 05/24/17 06/04/17 06/03/17 History Losartan [Cozaar] 100 mg PO BID 05/24/17 06/04/17 06/03/17 History NIFEdipine XL [Procardia Xl] 90 mg PO QDAY 05/24/17 06/04/17 06/03/17 History Oxycodone HCl [Roxicodone TAB] 30 mg PO QID 05/24/17 06/04/17 06/03/17 History Promethazine [Phenergan TAB] 25 mg PO Q6H PRN 05/24/17 06/04/17 06/03/17 History Sucralfate [Carafate] 1 gm PO TID 05/24/17 06/04/17 06/03/17 History SUMAtriptan SUCCINATE [Imitrex] 50 mg PO PRN PRN 05/26/17 06/04/17 06/03/17 History Clindamycin [Clindamycin CAP] 150 mg PO TID #21 capsule 05/30/17 06/04/17 Rx Vancomycin HCl in Dextrose 5 % 1.5 gm IV 3XW #5 plast..bag 05/30/17 06/04/17 Rx [Vancomycin 1.5 Gram/250 ml-D5w] cloNIDine [Catapres] 0.2 mg PO Q8H #30 tablet 05/30/17 06/04/17 06/03/17 Rx Active Meds: Active Medications Clonidine HCl (Catapres) 0.2 mg PO Q8H [facility] Last Admin: 06/06/17 08:37 Dose: 0.2 mg Cyclobenzaprine HCl (Flexeril) 10 mg PO BID PRN PRN Reason: Muscle Spasm Dicyclomine HCl (Bentyl) 20 mg PO QID PRN PRN Reason: Pain Diphenhydramine HCl (Benadryl) 25 mg IV Q8H PRN PRN Reason: Itching Last Admin: 06/06/17 08:50 Dose: 25 mg Epoetin Armando (Epogen) 20,000 unit IV CELENA PRN PRN Reason: hemodialysis Gabapentin (Neurontin) 100 mg PO TID [facility] Last Admin: 06/06/17 08:37 Dose: 100 mg Heparin Sodium (Porcine) (Heparin) 5,000 unit SUB-Q Q8HR [facility] Last Admin: 06/06/17 05:59 Dose: Not Given Hydralazine HCl (Apresoline) 100 mg PO TID [facility] Last Admin: 06/06/17 08:37 Dose: 100 mg Piperacillin Sod/Tazobactam Sod (Zosyn/Ns 2.25 Gm/50ml) 2.25 gm in 50 mls @ 100 mls/hr IV Q8HR [facility] Last Admin: 06/06/17 05:58 Dose: 100 mls/hr Vancomycin HCl 750 mg/ Sodium (Chloride) 250 mls @ 166.667 mls/hr IV Q24H [facility] Last Admin: 06/05/17 13:23 Dose: 166.667 mls/hr Sodium Chloride (Nacl 0.9%) 100 mls @ 999 mls/hr IV CELENA PRN PRN Reason: Hypotension Labetalol HCl (Normodyne) 300 mg PO TID [facility] Last Admin: 06/06/17 08:37 Dose: 300 mg Losartan Potassium (Cozaar) 100 mg PO BID [facility] Last Admin: 06/05/17 21:21 Dose: 100 mg Nifedipine (Procardia Xl) 90 mg PO QDAY [facility] Last Admin: 06/05/17 09:14 Dose: 90 mg Oxycodone HCl (Roxicodone) 30 mg PO QID [facility] Last Admin: 06/05/17 21:21 Dose: 30 mg Pantoprazole Sodium (Protonix) 40 mg PO BID [facility] Last Admin: 06/06/17 10:40 Dose: 40 mg Promethazine HCl (Phenergan) 25 mg PO Q6H PRN PRN Reason: Nausea Last Admin: 06/05/17 16:28 Dose: 25 mg Sucralfate (Carafate) 1 gm PO TID [facility] Last Admin: 06/06/17 08:37 Dose: 1 gm Sumatriptan Succinate (Imitrex) 50 mg PO PRN PRN PRN Reason: Migraine Headache Vancomycin HCl (Vancomycin Pharmacy To Dose) 1 each IV PKCONSULT [facility] PRN Reason: Protocol Review of Systems All systems: negative Exam - Constitutional Vitals: Temp Pulse Resp BP Pulse Ox 98.2 F 73 20 161/78 99 06/06/17 08:10 06/06/17 08:37 06/06/17 08:10 06/06/17 08:37 06/06/17 09:59 General appearance: Present: no acute distress - EENT Eyes: Present: PERRL, EOM intact ENT: hearing intact - Neck Neck: Present: supple, normal ROM - Respiratory Respiratory effort: normal - Extremities Extremities: no ischemia - Abdominal General gastrointestinal: Present: deferred Female genitourinary: Present: deferred - Rectal Rectal Exam: deferred - Psychiatric Psychiatric: appropriate mood/affect, cooperative Results - Labs CBC & Chem 7: 06/05/17 04:00 06/05/17 04:00 Labs: Abnormal lab results 06/05/17 06/05/17 06/05/17 Range/Units 07:28 08:45 11:05 POC Glucose 120 H 168 H (70-105) C-Reactive Protein (0.00-1.30) mg/dL Crossmatch See Detail 06/05/17 06/05/17 06/05/17 Range/Units 15:43 21:40 21:54 POC Glucose 151 H 156 H (70-105) C-Reactive Protein 7.00 H (0.00-1.30) mg/dL Crossmatch 06/06/17 Range/Units 08:12 POC Glucose 123 H (70-105) C-Reactive Protein (0.00-1.30) mg/dL Crossmatch - Imaging and Cardiology CT scan - abdomen: report reviewed, image reviewed Assessment and Plan The patient needs a fistulogram of her right upper extremity fistula. She was noted to have some stenosis within the body of the fistula and given the presence of poor tubing, the patient likely has some central venous stenosis as well. This will be scheduled for tomorrow.
[2017-06-06] MEDS ORDERED: NACL 0.9% 1000 ML 1,000 ML ONE (12:04)
[2017-06-06] MEDS ORDERED: BENADRYL IV ONE (12:30)
--- NOTE | 2017-06-06 12:56 | Progress Note ---
Assessment and Plan Assessment: 1. ESRD on HD 2. Uncontrolled type 2DM 3. Hypertension 4. Fluid overload 5. Gastroparesis 6. Diabetic foot ulcer Plan: - cont. HD on MWF schedule - improved fluid status on HD - Resume antihypertensives medications. Follow-up blood pressure after fluid removal on dialysis - Wound care consult, ABXs as per ID Subjective Date of service: 06/06/17 Principal diagnosis: end-stage renal disease Interval history: Pt awake, alert, in NAD Objective - Vital Signs Vital signs: Vital Signs - 12hr 06/06/17 06/06/17 06/06/17 04:00 08:10 08:37 Temperature 98.6 F 98.2 F Pulse Rate 73 78 73 Respiratory 20 20 Rate Blood Pressure 161/78 131/66 161/78 O2 Sat by Pulse 100 98 Oximetry 06/06/17 09:59 Temperature Pulse Rate Respiratory Rate Blood Pressure O2 Sat by Pulse 99 Oximetry - General Appearance General appearance: well-developed, well-nourished, appears stated age EENT: ATNC, PERRL, mucous membranes moist Neck: no JVD Respiratory: Present: Clear to Ascultation Cardiology: regular, S1S2 Gastrointestinal: normal, normoactive bowel sounds Integumentary: no rash, other (no edema ) Neurologic: no focal deficit, alert and oriented x3, strength 5/5, CN 3-12 intact Psychiatric: mood/affect appropriate, cooperative - Lab 06/05/17 04:00 06/05/17 04:00 Most recent lab results Calcium 8.3 mg/dL (8.4-10.2) L 06/05/17 04:00
--- NOTE | 2017-06-06 13:25 | Progress Note ---
Assessment and Plan Assessment and plan: Sepsis Pain from the AV fistula site Fluid overload secondary to missed dialysis Gastroparesis Hypertension End-stage renal disease on hemodialysis Foot ulcer COPD Severe anemia - patient has episodes of fever -ID consult appreciated -Transfused 1 unit of blood -Nephrology consult appreciated -Patient is on IV vanc and Zosyn -Pain control for gastroparesis -Continue appropriate home medications -Wound care consult, has an appointment with Dr Lopez as an outpatient DVT prophylaxis -Heparin Disposition -Continue inpatient care History Interval history: Patient was seen and evaluated this morning, patient is complaining abdominal pain Hospitalist Physical - Physical exam Narrative exam: Not in cardiopulmonary distress. The patient appeared well nourished and normally developed. Vital signs as documented. Head exam is unremarkable. No scleral icterus . Neck is without jugular venous distension, thyromegaly, or carotid bruits. Lungs are clear to auscultation. Cardiac exam reveals regular rate and Rhythm. First and second heart sounds normal. No murmurs, rubs or gallops. Abdominal exam reveals normal bowel sounds, no masses, no organomegaly and no aortic enlargement. Extremities +2 pedal and pretibial edema, clean dressing on the right foot. 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 No focal weakness. - Constitutional Vitals: Temp Pulse Resp BP Pulse Ox 98.2 F 73 20 161/78 99 06/06/17 08:10 06/06/17 08:37 06/06/17 08:10 06/06/17 08:37 06/06/17 09:59 General appearance: Present: no acute distress Results - Labs CBC & Chem 7: 06/05/17 04:00 06/05/17 04:00 Labs: Laboratory Last Values WBC 6.3 K/mm3 (4.5-11.0) 06/05/17 04:00 RBC 2.31 M/mm3 (3.65-5.03) L 06/05/17 04:00 Hgb 6.8 gm/dl (10.1-14.3) L 06/05/17 04:00 Hct 20.7 % (30.3-42.9) L 06/05/17 04:00 MCV 90 fl (79-97) 06/05/17 04:00 MCH 29 pg (28-32) 06/05/17 04:00 MCHC 33 % (30-34) 06/05/17 04:00 RDW 18.6 % (13.2-15.2) H 06/05/17 04:00 Plt Count 220 K/mm3 (140-440) 06/05/17 04:00 Lymph % (Auto) 11.2 % (13.4-35.0) L 06/05/17 04:00 [place] % (Auto) 6.8 % (0.0-7.3) 06/05/17 04:00 Eos % (Auto) 1.7 % (0.0-4.3) 06/05/17 04:00 Baso % (Auto) 0.5 % (0.0-1.8) 06/05/17 04:00 Lymph # 0.7 K/mm3 (1.2-5.4) L 06/05/17 04:00 [place] # 0.4 K/mm3 (0.0-0.8) 06/05/17 04:00 Eos # 0.1 K/mm3 (0.0-0.4) 06/05/17 04:00 Baso # 0.0 K/mm3 (0.0-0.1) 06/05/17 04:00 Seg Neutrophils % 79.8 % (40.0-70.0) H 06/05/17 04:00 Seg Neutrophils # 5.0 K/mm3 (1.8-7.7) 06/05/17 04:00 Sodium 137 mmol/L (137-145) 06/05/17 04:00 Potassium 4.4 mmol/L (3.6-5.0) 06/05/17 04:00 Chloride 94.8 mmol/L (98-107) L 06/05/17 04:00 Carbon Dioxide 29 mmol/L (22-30) 06/05/17 04:00 Anion Gap 18 mmol/L 06/05/17 04:00 BUN 12 mg/dL (7-17) 06/05/17 04:00 Creatinine 3.7 mg/dL (0.7-1.2) H 06/05/17 04:00 Estimated GFR 17 ml/min 06/05/17 04:00 BUN/Creatinine Ratio 3.24 % 06/05/17 04:00 Glucose 103 mg/dL (65-100) H 06/05/17 04:00 POC Glucose 123 (70-105) H 06/06/17 08:12 Calcium 8.3 mg/dL (8.4-10.2) L 06/05/17 04:00 C-Reactive Protein 7.00 mg/dL (0.00-1.30) H 06/05/17 21:40 Blood Type B POSITIVE 06/05/17 08:45 Antibody Screen Positive 06/05/17 08:45 Antibody Identification Anti-E 06/05/17 08:45 Direct Antiglob Test Negative 06/05/17 08:45 SUSANNAH, Poly Interpret Negative 06/05/17 08:45 Crossmatch See Detail 06/05/17 08:45
[2017-06-06] MEDS: PROCARDIA XL PO SCH (18:17)
[2017-06-06] MEDS: COZAAR PO SCH ×2 (18:18→22:18)
[2017-06-06] MEDS: ROXICODONE PO SCH ×3 (18:19→22:20)
[2017-06-06] MEDS ORDERED: VANCOMYCIN/NS 1 GM/250 ML 1 GM/250 ML BAG IV ONE (20:00)
[2017-06-07] MEDS: CATAPRES PO SCH ×3 (00:20→15:37)
[2017-06-07] MEDS: BENADRYL IV PRN ×4 (01:19→23:20)
[2017-06-07] MEDS: ZOSYN/NS 2.25 GM/50ML 2.25 GM/50 ML BAG IV SCH ×3 (05:24→22:01)
--- NOTE | 2017-06-07 07:57 | Magnetic Resonance Report ---
FINAL REPORT PROCEDURE: MR LE NONJOINT RT WO CON TECHNIQUE: Magnetic resonance imaging of the RIGHT foot joint was performed using standard pulse sequences. CPT 07872-VP HISTORY: rihgt foot ulcer COMPARISON: No prior studies are available for comparison. FINDINGS: The tibia and fibula are intact. The talus and calcaneus are intact. The tarsal bones, metatarsal bones and phalanges are intact. There are no fractures. There is no dislocation. There is no bone marrow edema. There is edema in the plantar soft tissues suggesting cellulitis and possibly myositis and fasciitis. However, there is no mass or loculated fluid collection to suggest abscess. The Achilles tendon is intact. The anterior and posterior tibial tendons and the peroneus longus and brevis tendons are intact. IMPRESSION: There is edema in the plantar soft tissues suggesting cellulitis and possibly myositis and fasciitis. However, there is no mass or loculated fluid collection to suggest abscess. There is no acute bony abnormality.
[2017-06-07] MEDS: NEURONTIN PO SCH ×3 (08:58→22:02)
[2017-06-07] MEDS: NORMODYNE PO SCH ×3 (08:59→23:17)
[2017-06-07] MEDS: APRESOLINE PO SCH ×3 (08:59→21:52)
[2017-06-07] MEDS: CARAFATE PO SCH ×3 (08:59→21:52)
[2017-06-07] MEDS: HEPARIN SUB-Q SCH ×3 (09:00→22:02)
[2017-06-07] MEDS: COZAAR PO SCH ×2 (09:00→23:18)
[2017-06-07] MEDS: PROCARDIA XL PO SCH (09:01)
[2017-06-07] MEDS: ROXICODONE PO SCH ×4 (09:03→21:50)
[2017-06-07] MEDS: PROTONIX PO SCH ×2 (09:10→21:51)
[2017-06-07] MEDS: PHENERGAN PO PRN (09:17)
[2017-06-07 12:33] LABS: Hemoglobin 7.5 gm/dl (10.1-14.3)
[2017-06-07] MEDS ORDERED: VANCOMYCIN/NS 1 GM/250 ML 1 GM/250 ML BAG IV ONE (12:50)
[2017-06-07] MEDS ORDERED: NACL 0.9% 250ML 0 ML ONE (12:50)
[2017-06-07] MEDS ORDERED: HEPARIN/NS 5000 UNIT/500ML(CATH LAB) 500 ML IR ONE ×2 (12:51→13:27)
--- NOTE | 2017-06-07 13:21 | Progress Note ---
Assessment and Plan Assessment: 1) SIRS: improving. Unclear etiology ? infected right great toe diabetic ulcer + /- AVF site infection. 2) Right foot diabetic ulcer at great toe: -CRP 7 -MRI showed edema of plantar area c/o cellulitis and presumed myositis/ fascitis. No evidence of osteomyelitis. 3) Recent right arm AVF cellulitis - US negative for abscess / thrombus - still c/o tenderness and edema ? fistula stenosis 4) Diabetes 5) Gastroparesis 6) ESRD on HD via AVF 7) Port in place Plan: -fistulogram today -appreciate Dr Lopez's eval. Patient is going for wound debridement. Please send deep tissue for cultures and Gram stain -continue vancomycin and zosyn renally dosed -Discussed with patient Thank you Dr Cisneros for your consultation, will follow up with you. Cat Marin MD Infectious Diseases Specialist [facility], [place], [facility] ([facility]) M [phone] O [phone] Subjective Date of service: 06/07/17 Principal diagnosis: end-stage renal disease Interval history: Patient sick c/o severe diffuse abdominal pain and nausea, afebrile, tmax 99. Microbiology: Blood cultures: 06/04 neg Urine cultures: Respiratory cultures: Wound cultures: Stool cultures: Current Antimicrobials: Zosyn 06/05 Vancomycin 06/05 Objective - Exam Narrative Exam: General appearance: Alert in NAD, conversant Eyes: PERRLA non icteric conjunctivae HENT: Atraumatic; oropharynx clear with moist mucous membranes and no mucosal ulcerations/no oral thrush; normal hard and soft palate. Normal external ears. Neck: Trachea midline; supple, no thyromegaly or lymphadenopathy Lungs: CTA, with normal respiratory effort and no intercostal retractions CV: RRR, no murmur Abdomen: Soft, non-tender; no masses or hepatosplenomegaly Extremities: + peripheral edema +right great toe ulcer surrounding by callus, non drainage Skin: + right arm AVF site with tenderness and edema no erythema Psych: Appropriate affect, alert and oriented to person, place and time. Neuro: alert and oriented x 3. Moving all extermities Lines: No CVL / PICC - Constitutional Vitals: Vital Signs Temp Pulse Resp BP Pulse Ox 97.4 F L 84 20 156/75 99 06/07/17 11:35 06/07/17 11:35 06/07/17 11:35 06/07/17 11:35 06/07/17 11:35 Temperature -Last 24 Hours Temperature 97.4 F Temperature 99.6 F Temperature 99.4 F Temperature 99.8 F Temperature 99.0 F Temperature 98.2 F Temperature 98.6 F - Labs CBC & Chem 7: 06/07/17 12:11 06/05/17 04:00 Labs: Abnormal lab results 06/06/17 06/06/17 06/07/17 Range/Units 17:18 21:46 08:20 Hgb (10.1-14.3) gm/dl Hct (30.3-42.9) % POC Glucose 111 H 156 H 142 H (70-105) 06/07/17 06/07/17 Range/Units 11:42 12:11 Hgb 7.5 L (10.1-14.3) gm/dl Hct 23.0 L (30.3-42.9) % POC Glucose 136 H (70-105)
[2017-06-07] MEDS ORDERED: XYLOCAINE 2% INFILTRATI ONE (13:28)
[2017-06-07] MEDS ORDERED: HEPARIN 10,000 UNITS/10 ML ONE (13:28)
[2017-06-07] MEDS ORDERED: BENADRYL ONE (13:39)
[2017-06-07] MEDS: SUBLIMAZE ONE ×3 (13:40→13:53)
[2017-06-07] MEDS: VERSED ONE ×3 (13:40→13:54)
[2017-06-07] MEDS ORDERED: VERSED ONE (13:50)
[2017-06-07] MEDS ORDERED: SUBLIMAZE ONE (13:50)
--- NOTE | 2017-06-07 14:04 | Consultation ---
History of Present Illness Consult date: 06/07/17 Reason for consult: wound care Chief complaint: Right great toe ulcer - History of present illness History of present illness: Pt with a recent h/o an ulcer of her right great toe. She denies any h/o trauma. She is diabetic. Past History Past Medical History: diabetes, ESRD, hypertension, renal failure, other ( gastroparesis) Past Surgical History: cholecystectomy, Other (port cath, AV left upper extremity AV fistula, right upper extremity AV graft, permacath placements, bilateral tubal ligation, laser photocoagulation of the retina) Social history: single, lives with family (with her 3 children. 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 denies: smoking, alcohol abuse, prescription drug abuse, IV drug use Family history: CAD (father of myocardial infarction at age 56), cancer ( Mother had lung cancer but is alive), diabetes (parents have diabetes mellitus) , hypertension (both parents have hypertension) Medications and Allergies Allergies Allergy/AdvReac Type Severity Reaction Status Date / Time lisinopril Allergy Shortness Verified 06/04/17 07:41 of Breath oxycodone HCl [From Percocet] Allergy Itching Verified 06/04/17 07:41 morphine AdvReac Anaphylaxis Verified 06/04/17 07:41 Home Medications Medication Instructions Recorded Confirmed Last Taken Type hydrALAZINE [Apresoline TAB] 100 mg PO TID #90 tab 03/06/17 06/04/17 06/03/17 Rx Pantoprazole [Protonix TAB] 40 mg PO BID #20 tablet 04/12/17 06/04/17 06/03/17 Rx Cyclobenzaprine HCl [Flexeril 5 MG 10 mg PO BID PRN 05/24/17 06/04/17 06/03/17 History TAB] Dicyclomine [Bentyl] 20 mg PO QID PRN 05/24/17 06/04/17 06/03/17 History Gabapentin [Neurontin] 100 mg PO TID 05/24/17 06/04/17 06/03/17 History Labetalol HCl 300 mg PO TID 05/24/17 06/04/17 06/03/17 History Losartan [Cozaar] 100 mg PO BID 05/24/17 06/04/17 06/03/17 History NIFEdipine XL [Procardia Xl] 90 mg PO QDAY 05/24/17 06/04/17 06/03/17 History Oxycodone HCl [Roxicodone TAB] 30 mg PO QID 05/24/17 06/04/17 06/03/17 History Promethazine [Phenergan TAB] 25 mg PO Q6H PRN 05/24/17 06/04/17 06/03/17 History Sucralfate [Carafate] 1 gm PO TID 05/24/17 06/04/17 06/03/17 History SUMAtriptan SUCCINATE [Imitrex] 50 mg PO PRN PRN 05/26/17 06/04/17 06/03/17 History Clindamycin [Clindamycin CAP] 150 mg PO TID #21 capsule 05/30/17 06/04/17 Rx Vancomycin HCl in Dextrose 5 % 1.5 gm IV 3XW #5 plast..bag 05/30/17 06/04/17 Rx [Vancomycin 1.5 Gram/250 ml-D5w] cloNIDine [Catapres] 0.2 mg PO Q8H #30 tablet 05/30/17 06/04/17 06/03/17 Rx Active Meds: Active Medications Clonidine HCl (Catapres) 0.2 mg PO Q8H [facility] Last Admin: 06/07/17 09:10 Dose: 0.2 mg Cyclobenzaprine HCl (Flexeril) 10 mg PO BID PRN PRN Reason: Muscle Spasm Dicyclomine HCl (Bentyl) 20 mg PO QID PRN PRN Reason: Pain Diphenhydramine HCl (Benadryl) 25 mg IV Q8H PRN PRN Reason: Itching Last Admin: 06/07/17 09:20 Dose: 25 mg Epoetin Armando (Epogen) 20,000 unit IV CELENA PRN PRN Reason: hemodialysis Last Admin: 06/06/17 13:52 Dose: 20,000 unit Gabapentin (Neurontin) 100 mg PO TID [facility] Last Admin: 06/07/17 08:58 Dose: 100 mg Heparin Sodium (Porcine) (Heparin) 5,000 unit SUB-Q Q8HR [facility] Last Admin: 06/07/17 09:00 Dose: Not Given Hydralazine HCl (Apresoline) 100 mg PO TID [facility] Last Admin: 06/07/17 08:59 Dose: 100 mg Piperacillin Sod/Tazobactam Sod (Zosyn/Ns 2.25 Gm/50ml) 2.25 gm in 50 mls @ 100 mls/hr IV Q8HR [facility] Last Admin: 06/07/17 05:24 Dose: 100 mls/hr Sodium Chloride (Nacl 0.9%) 100 mls @ 999 mls/hr IV CELENA PRN PRN Reason: Hypotension Labetalol HCl (Normodyne) 300 mg PO TID [facility] Last Admin: 06/07/17 08:59 Dose: 300 mg Losartan Potassium (Cozaar) 100 mg PO BID [facility] Last Admin: 06/07/17 09:00 Dose: 100 mg Nifedipine (Procardia Xl) 90 mg PO QDAY [facility] Last Admin: 06/07/17 09:01 Dose: 90 mg Oxycodone HCl (Roxicodone) 30 mg PO QID [facility] Last Admin: 06/07/17 09:03 Dose: 30 mg Pantoprazole Sodium (Protonix) 40 mg PO BID [facility] Last Admin: 06/07/17 09:10 Dose: 40 mg Promethazine HCl (Phenergan) 25 mg PO Q6H PRN PRN Reason: Nausea Last Admin: 06/07/17 09:17 Dose: 25 mg Sucralfate (Carafate) 1 gm PO TID [facility] Last Admin: 06/07/17 08:59 Dose: 1 gm Sumatriptan Succinate (Imitrex) 50 mg PO PRN PRN PRN Reason: Migraine Headache Vancomycin HCl (Vancomycin Pharmacy To Dose) 1 each IV PKCONSULT [facility] PRN Reason: Protocol Review of Systems All systems: negative Exam Vital Signs Temp Pulse BP Pulse Ox 100.2 F H 94 H 153/87 99 06/04/17 04:40 06/04/17 04:40 06/04/17 04:40 06/04/17 04:40 - General physical appearance Positive: well developed, well nourished, no distress - Eyes Positive: PERRL, normal occular movement - ENT Positive: normal pinna, normal nares, normal mucosa, no hearing loss, no congestion - Neck Positive: no masses, no bruits, trachea midline, no venous distension - Respiratory Positive: normal expansion, normal respiratory effort, clear to auscultation - Cardiovascular Rhythm: regular Heart Sounds: Present: S1 & S2. Absent: rub, click - Extremities Extremities: no ischemia, pulses symmetrical, No edema - Peripheral pulses dorsalis pedis Pulse Strength: 2+ posterial tibial Pulse Strength: 2+ - Breasts Breasts: deferred - Abdomen Abdomen: Present: soft, bowel sounds normal. Absent: tender, distended Hernia: none - Genitourinary Female Genitourinary: deferred - Integumentary other (There is a ulcer along the plantar aspect of her right great toe. This is surrounded by hyperkeratotic tissue. There are no signs of associated infection.) - Neurologic Neurologic: alert and oriented to time, place and person, motor strength and sensation are grossly intact - Musculoskeletal normal gait, normal posture - Psychiatric Psychiatric: appropriate mood/affect, intact judgment & insight Results - Labs 06/07/17 12:11 06/05/17 04:00 Abnormal lab results 06/06/17 06/06/17 06/07/17 Range/Units 17:18 21:46 08:20 Hgb (10.1-14.3) gm/dl Hct (30.3-42.9) % POC Glucose 111 H 156 H 142 H (70-105) 06/07/17 06/07/17 Range/Units 11:42 12:11 Hgb 7.5 L (10.1-14.3) gm/dl Hct 23.0 L (30.3-42.9) % POC Glucose 136 H (70-105) - Imaging Additional studies: MRI of her right foot yesterday revealed no abscess or evidence of osteomyelitis. Assessment and Plan 1) Arterial dopplers 2) Will debride the hyperkeratotic tissue about her right great toe ulcer tomorrow. 3) Strict DM control - Patient Problems (1) Diabetic foot ulcer associated with type 2 diabetes mellitus Current Visit: Yes Status: Acute Qualifiers: Diabetic foot ulcer location: toe Laterality: right Non-pressure ulcer stage: unspecified non-pressure ulcer stage Qualified Code(s): E11.621 - Type 2 diabetes mellitus with foot ulcer; L97.519 - Non-pressure chronic ulcer of other part of right foot with unspecified severity
--- NOTE | 2017-06-07 15:23 | Progress Note ---
Assessment and Plan Assessment and plan: 37-year-old -[place] female with past medical history significant for hypertension, diabetes mellitus, CHF, asthma, end-stage renal disease on hemodialysis, gastroparesis, COPD on home oxygen presented to the emergency department complaining of shortness of breath, abdominal pain, bilateral leg swelling. The patient missed dialysis on Tuesday due to transportation issue but had dialysis yesterday and the plan was to repeat hemodialysis today. The patient has shortness of breath, cough since Tuesday. While she was in dialysis yesterday the dialysis staff advised her to go to the hospital but patient preferred to go home. Patient presented today complaining of abdominal pain, shortness of breath and leg swelling getting worse. Abdominal pain, mid abdomen, sharp pain, 10 out of 10 in intensity, with no radiation, associated with nausea and vomiting, aggravated with eating, relieved with Dilaudid. She said the pain is no different from the usual pain from gastroparesis. Patient denied fever, chills, chest pain, palpitation. Patient was admitted to the hospital for sepsis, cellulitis and was discharged on 05/24/17 with IV vancomycin and clindamycin, she finished her medications. She has also on the right foot and scheduled to see Dr. Weston as an outpatient. Chronic Recurrent abdominal pain Opioid dependent sydnrom Cellulitis of the Right great toe ulcer-Diabetic ulcer Sepsis Unknown etiology AV fistula pain with swelling Gastroparesis Hypertension Acute respiratory failure improving COPD Severe Anemia Plan: * supportive care, continue abx per ID * MRI Reviewed no evidence of osteomyelitis, patient with recent AVF celluliits , also plantar area concerning for cellulitis with possible presumed myositis/ fascitis * s/p 1 PRBC, recheck h.h * Continue vancomycin and Zosyn renally dosed * Vascular, surgical, ID consult noted * Continue with care * Planned for fistulogram * called pharmacy and patient last filled Nov 2015 for ativan 1mg * Planned for atrial Dopplers and also debridement of hyperkeratotic tissue on the right great toe * Continue pain control per home dose. * Patient for fistulogram History Interval history: Patient seen and examined today complaints of recurrent abdominal pain. Rates it a 10 over 10 in intensity. States that this is the current state that he has been for 8 years. She reports following up with pain specialist but has not followed at [facility] as I had previously recommended to her. He nausea or vomiting at this time. She denies any fever. She states that this is the reason she came to the hospital and not her legs. She reports noncompliance with weightbearing shoes she has at home in relation to her legs. She would like nursing staff to give her IV Dilaudid in addition to IV Benadryl and also to start her Ativan which she takes at home by mouth. Hospitalist Physical - Physical exam Narrative exam: VITAL SIGNS: Reviewed. GENERAL: The patient appeared well nourished and normally developed. Vital signs as documented. HEAD: No signs of head trauma. EYES: Pupils are equal. Extraocular motions intact. EARS: Hearing grossly intact. MOUTH: Oropharynx is normal. NECK: No adenopathy, no JVD. CHEST: Chest with clear breath sounds bilaterally. No wheezes, rales, or rhonchi. CARDIAC: Regular rate and rhythm. S1 and S2, without murmurs, gallops, or rubs. VASCULAR: Right upper extremity AV fistula, No Edema. Peripheral pulses normal and equal in all extremities. ABDOMEN: Soft, without detectable tenderness. No sign of distention. No rebound or guarding, and no masses palpated. Bowel Sounds normal. MUSCULOSKELETAL: Good range of motion of all major joints. Extremities without clubbing, cyanosis or edema. NEUROLOGIC EXAM: Alert and oriented x 3. No focal sensory or strength deficits. Speech normal. Follows commands. PSYCHIATRIC: Mood normal. SKIN: Crusted ulcer base of the right foot and also a scar because of left foot - Constitutional Vitals: Temp Pulse Resp BP Pulse Ox 97.4 F L 84 20 156/75 99 06/07/17 11:35 06/07/17 11:35 06/07/17 11:35 06/07/17 11:35 06/07/17 11:35 General appearance: Present: no acute distress Results - Labs CBC & Chem 7: 06/07/17 12:11 06/05/17 04:00 Labs: Laboratory Last Values WBC 6.3 K/mm3 (4.5-11.0) 06/05/17 04:00 RBC 2.31 M/mm3 (3.65-5.03) L 06/05/17 04:00 Hgb 7.5 gm/dl (10.1-14.3) L 06/07/17 12:11 Hct 23.0 % (30.3-42.9) L 06/07/17 12:11 MCV 90 fl (79-97) 06/05/17 04:00 MCH 29 pg (28-32) 06/05/17 04:00 MCHC 33 % (30-34) 06/05/17 04:00 RDW 18.6 % (13.2-15.2) H 06/05/17 04:00 Plt Count 220 K/mm3 (140-440) 06/05/17 04:00 Lymph % (Auto) 11.2 % (13.4-35.0) L 06/05/17 04:00 Hernando % (Auto) 6.8 % (0.0-7.3) 06/05/17 04:00 Eos % (Auto) 1.7 % (0.0-4.3) 06/05/17 04:00 Baso % (Auto) 0.5 % (0.0-1.8) 06/05/17 04:00 Lymph # 0.7 K/mm3 (1.2-5.4) L 06/05/17 04:00 Hernando # 0.4 K/mm3 (0.0-0.8) 06/05/17 04:00 Eos # 0.1 K/mm3 (0.0-0.4) 06/05/17 04:00 Baso # 0.0 K/mm3 (0.0-0.1) 06/05/17 04:00 Seg Neutrophils % 79.8 % (40.0-70.0) H 06/05/17 04:00 Seg Neutrophils # 5.0 K/mm3 (1.8-7.7) 06/05/17 04:00 Sodium 137 mmol/L (137-145) 06/05/17 04:00 Potassium 4.4 mmol/L (3.6-5.0) 06/05/17 04:00 Chloride 94.8 mmol/L (98-107) L 06/05/17 04:00 Carbon Dioxide 29 mmol/L (22-30) 06/05/17 04:00 Anion Gap 18 mmol/L 06/05/17 04:00 BUN 12 mg/dL (7-17) 06/05/17 04:00 Creatinine 3.7 mg/dL (0.7-1.2) H 06/05/17 04:00 Estimated GFR 17 ml/min 06/05/17 04:00 BUN/Creatinine Ratio 3.24 % 06/05/17 04:00 Glucose 103 mg/dL (65-100) H 06/05/17 04:00 POC Glucose 136 (70-105) H 06/07/17 11:42 Calcium 8.3 mg/dL (8.4-10.2) L 06/05/17 04:00 C-Reactive Protein 7.00 mg/dL (0.00-1.30) H 06/05/17 21:40 Blood Type B POSITIVE 06/05/17 08:45 Antibody Screen Positive 06/05/17 08:45 Antibody Identification Anti-E 06/05/17 08:45 Direct Antiglob Test Negative 06/05/17 08:45 SUSANNAH, Poly Interpret Negative 06/05/17 08:45 Crossmatch See Detail 06/05/17 08:45
--- NOTE | 2017-06-07 17:23 | Progress Note ---
Assessment and Plan Assessment: 1. ESRD on HD 2. Uncontrolled type 2DM 3. Hypertension 4. Fluid overload 5. Gastroparesis 6. Diabetic foot ulcer Plan: - cont. HD on MWF schedule - improved fluid status on HD - monitor BP on current medications - Wound care consult, ABXs as per ID Subjective Date of service: 06/07/17 Principal diagnosis: end-stage renal disease Interval history: Pt awake, alert, in NAD Objective - Vital Signs Vital signs: Vital Signs - 12hr 06/07/17 06/07/17 06/07/17 08:10 08:59 09:00 Temperature 99.6 F Pulse Rate 90 86 86 Pulse Rate [ Right Radial] Respiratory 20 Rate Blood Pressure 126/59 126/59 126/59 O2 Sat by Pulse 95 Oximetry 06/07/17 06/07/17 06/07/17 09:10 09:25 10:30 Temperature Pulse Rate 86 Pulse Rate [ 86 Right Radial] Respiratory Rate Blood Pressure 126/59 O2 Sat by Pulse 96 Oximetry 06/07/17 06/07/17 06/07/17 11:12 11:35 15:24 Temperature 97.4 F L Pulse Rate 84 82 Pulse Rate [ Right Radial] Respiratory 20 Rate Blood Pressure 156/75 140/79 O2 Sat by Pulse 96 99 Oximetry 06/07/17 06/07/17 15:37 15:53 Temperature Pulse Rate 86 87 Pulse Rate [ Right Radial] Respiratory Rate Blood Pressure 140/79 O2 Sat by Pulse Oximetry - General Appearance General appearance: well-developed, well-nourished, appears stated age EENT: ATNC, PERRL, mucous membranes moist Neck: no JVD Respiratory: Present: Clear to Ascultation Cardiology: regular, S1S2 Gastrointestinal: normal, normoactive bowel sounds Integumentary: no rash, other (no edema ) Neurologic: no focal deficit, alert and oriented x3, strength 5/5, CN 3-12 intact Psychiatric: mood/affect appropriate, cooperative - Lab 06/07/17 12:11 06/05/17 04:00 Most recent lab results Calcium 8.3 mg/dL (8.4-10.2) L 06/05/17 04:00
[2017-06-07] MEDS: ATIVAN PO SCH (21:51)
[2017-06-08] MEDS: PHENERGAN PO PRN ×2 (02:18→23:07)
[2017-06-08] MEDS: BENADRYL IV PRN ×2 (07:17→17:56)
[2017-06-08] MEDS: ZOSYN/NS 2.25 GM/50ML 2.25 GM/50 ML BAG IV SCH ×3 (07:20→23:07)
[2017-06-08] MEDS: HEPARIN SUB-Q SCH ×3 (07:21→23:08)
--- NOTE | 2017-06-08 07:46 | Vascular Lab Report ---
LOWER EXTREMITY ARTERIAL DUPLEX: REASON FOR EXAM: Right toe ulcer. COMMENTS ON THE RIGHT: Triphasic waveforms are seen proximally. Triphasic waveforms are seen distally. No significant velocity gradients are identified. No focal significant plaque is identified. Findings are consistent with normal perfusion. Findings are consistent with the ability to heal distal wounds. COMMENTS ON THE LEFT: Triphasic waveforms are seen proximally. Triphasic waveforms are seen distally. No significant velocity gradients are identified. No focal significant plaque is identified. Findings are consistent with normal perfusion. Findings are consistent with the ability to heal distal wounds. IMPRESSION: RIGHT: Essentially normal arterial flow. LEFT:Essentially normal arterial flow.
--- NOTE | 2017-06-08 07:47 | Vascular Lab Report ---
LOWER EXTREMITY ARTERIAL PHYSIOLOGIC STUDY: REASON FOR EXAM: Peripheral arterial disease. COMMENTS ON THE RIGHT: Ankle brachial index is 1.28. This value is normal. Toe brachial index is 1.61. This value is elevated. Wound healing is likely. Pulse volume recording at the level of the ankle is normal. Exercise testing was not done. COMMENTS ON THE LEFT: Ankle brachial index is 1.33. This value is normal. Toe brachial index is 1.61. This value is elevated. Wound healing is likely. Pulse volume recording at the level of the ankle is normal. Exercise testing was not done. IMPRESSION: RIGHT: No hemodynamically significant arterial disease. LEFT:No hemodynamically significant arterial disease.
[2017-06-08] MEDS: NEURONTIN PO SCH ×3 (08:23→21:08)
[2017-06-08] MEDS: CARAFATE PO SCH ×3 (08:23→21:06)
[2017-06-08] MEDS: NORMODYNE PO SCH ×3 (08:26→21:05)
[2017-06-08] MEDS: CATAPRES PO SCH ×3 (08:27→16:04)
[2017-06-08] MEDS: APRESOLINE PO SCH ×3 (08:27→21:07)
[2017-06-08] MEDS: ROXICODONE PO SCH ×5 (09:40→23:02)
[2017-06-08] MEDS: PROTONIX PO SCH ×2 (10:06→23:06)
[2017-06-08] MEDS: COZAAR PO SCH ×2 (10:06→23:01)
[2017-06-08] MEDS: PROCARDIA XL PO SCH (10:06)
--- NOTE | 2017-06-08 10:41 | Progress Note ---
Assessment and Plan Assessment: 1. ESRD on HD 2. Uncontrolled type 2DM 3. Hypertension 4. Fluid overload 5. Gastroparesis 6. Diabetic foot ulcer Plan: - cont. HD on MWF schedule - improved BP/fluid status on HD - monitor BP on current medications - s/p angiopasty on 06/07 - Wound care consult, ABXs as per ID Subjective Date of service: 06/08/17 Principal diagnosis: end-stage renal disease Interval history: Pt awake, alert, in NAD, seen during HD BP 151/81 P 86, UF 4.5L. Pt s/p angioplasty on 06/07, denies pain at the site of AVF Objective - Vital Signs Vital signs: Vital Signs - 12hr 06/07/17 06/07/17 06/07/17 23:17 23:18 23:33 Temperature Pulse Rate 80 80 78 Respiratory 17 Rate Blood Pressure 134/79 134/79 O2 Sat by Pulse 98 Oximetry 06/07/17 06/08/17 06/08/17 23:51 04:26 08:26 Temperature 98.3 F 98.4 F Pulse Rate 78 73 87 Respiratory 18 18 Rate Blood Pressure 134/79 130/70 174/83 O2 Sat by Pulse 96 95 Oximetry 06/08/17 06/08/17 06/08/17 08:35 08:49 10:06 Temperature 99.1 F Pulse Rate 88 87 Respiratory 20 Rate Blood Pressure 175/85 174/83 O2 Sat by Pulse 87 94 Oximetry - General Appearance General appearance: well-developed, well-nourished, appears stated age EENT: ATNC, PERRL, mucous membranes moist Neck: no JVD Respiratory: Present: Clear to Ascultation Cardiology: regular, S1S2 Gastrointestinal: normal, normoactive bowel sounds Integumentary: no rash, other (no edema ) Neurologic: no focal deficit, alert and oriented x3, strength 5/5, CN 3-12 intact Psychiatric: mood/affect appropriate, cooperative - Lab 06/07/17 12:11 06/05/17 04:00 Most recent lab results Calcium 8.3 mg/dL (8.4-10.2) L 06/05/17 04:00
[2017-06-08] MEDS ORDERED: BENADRYL IV STA (11:07)
[2017-06-08] MEDS ORDERED: NACL 0.9 (PRIMING MACHINE ONLY DIALYSIS) MC ONE (11:11)
--- NOTE | 2017-06-08 12:36 | Progress Note ---
Assessment and Plan Assessment: 1) SIRS: improving. Unclear etiology ? infected right great toe diabetic ulcer + /- AVF site infection. 2) Right foot diabetic ulcer at great toe with cellulitis and myositis -CRP 7 -MRI showed edema of plantar area c/o cellulitis and presumed myositis/ fascitis. No evidence of osteomyelitis. -Arterial US leg neg -HUGO normal 3) Recent right arm AVF cellulitis - US negative for abscess / thrombus - still c/o tenderness and edema ? fistula stenosis -S/P fistulogram yesterday-report pending 4) Diabetes 5) Gastroparesis - still symptomatic 6) ESRD on HD via AVF 7) Port in place Plan: -fistulogram report pending -Patient is going for wound debridement. Please send deep tissue for cultures and Gram stain -continue vancomycin and zosyn renally dosed- day 4 of 14 -Discussed with patient -upon discharge will do levaquin 750 mg PO q 48 hour and clindamycin 300 mg po q 8 hours total 14 days from 06/05 to 06/18. [address] Cisneros for your consultation, will follow up with you. Cat Marin MD Infectious Diseases Specialist [facility] M [phone] O [phone] Subjective Date of service: 06/08/17 Principal diagnosis: end-stage renal disease Interval history: Patient remains sick c/o severe diffuse abdominal pain and nausea, afebrile. Had fistulogram done yesterday and now c/o AVF site edema and tenderness. Microbiology: Blood cultures: 06/04 neg Urine cultures: Respiratory cultures: Wound cultures: Stool cultures: Current Antimicrobials: Zosyn 06/05 Vancomycin 06/05 Objective - Exam Narrative Exam: General appearance: Alert in NAD, conversant Eyes: PERRLA non icteric conjunctivae HENT: Atraumatic; oropharynx clear with moist mucous membranes and no mucosal ulcerations/no oral thrush; normal hard and soft palate. Normal external ears. Neck: Trachea midline; supple, no thyromegaly or lymphadenopathy Lungs: CTA, with normal respiratory effort and no intercostal retractions CV: RRR, no murmur Abdomen: Soft, non-tender; no masses or hepatosplenomegaly Extremities: + peripheral edema +right great toe ulcer surrounding by callus, non drainage Skin: + right arm AVF site with tenderness and edema no erythema Psych: Appropriate affect, alert and oriented to person, place and time. Neuro: alert and oriented x 3. Moving all extermities Lines: No CVL / PICC - Constitutional Vitals: Vital Signs Temp Pulse Resp BP Pulse Ox 99.1 F 87 20 174/83 94 06/08/17 08:35 06/08/17 10:06 06/08/17 08:35 06/08/17 10:06 06/08/17 08:49 Temperature -Last 24 Hours Temperature 99.1 F Temperature 98.4 F Temperature 98.3 F Temperature 98.3 F Temperature 98.5 F - Labs CBC & Chem 7: 06/07/17 12:11 06/05/17 04:00 Labs: Abnormal lab results 06/07/17 06/07/17 06/07/17 Range/Units 11:42 12:11 16:59 Hgb 7.5 L (10.1-14.3) gm/dl Hct 23.0 L (30.3-42.9) % POC Glucose 136 H 106 H (70-105) 06/08/17 Range/Units 08:37 Hgb (10.1-14.3) gm/dl Hct (30.3-42.9) % POC Glucose 128 H (70-105)
--- NOTE | 2017-06-08 13:36 | Operative Report ---
Operative Report Operative Report: Date of procedure: 06/07/2017 Pre-operative diagnosis: Complications of Dialysis Access Post-operative diagnosis: Same Procedure(s): 1. Access Right AV Fistula with 6 [place] Sheath Venous 2. Fistulagram with Central Venogram 3. Angioplasty of Right AVF with 8 x 80 Balloon 4. Radiologic Supervision with Interpretation Surgeon: Mike Murry MD Clerk Funeral Detail: None Anesthesia: Local & IV Sedation EBL: Minimal Findings: 50% narrowing in the AV fistula towards the venous outflow reduced to less than 10% after angioplasty. Specimen: None Counts: Correct Complications: None Condition: Stable Indication: The patient is a 37-year-old female with a history of end-stage renal disease on hemodialysis to a right arm AV fistula. She's been having pain at the site of access with prolonged bleeding and is in need of a fistulogram with possible intervention. She was given the risks, benefits, and alternative procedures and consented to procedure. Description of Procedure: The patient was brought to the Central Office Repairer related supine position. After she was adequately sedated her right arm was prepped and draped in normal sterile fashion. After anesthetizing the skin micropuncture technique was used to access the fistula towards the venous outflow. A 6 [place] sheath was placed by Seldinger technique. A fistulogram was performed included the central venous system which demonstrated 50% narrowing over a long segment of the proximal portion of the fistula near the venous outflow. The remainder of the fistula including the arterial inflow and the central venous system widely patent. A 0.035 J-wire was advanced through the area of stenosis and angioplasty was performed with an 8 x 80 balloon. The follow-up result was less than 10% residual stenosis. At this point all bubbles and wires were removed and a 4-0 chromic in pursestring fashion was used to close entry site. The wound was dressed with Dermabond. The patient tolerated the procedure well. All sponge, needle, and instrument counts were correct. The patient was taken to the recovery area in stable condition.
--- NOTE | 2017-06-08 17:05 | Progress Note ---
Assessment and Plan 1) Continue wound care per the Wound Care nurse protocol. 2) Strict DM control 3) F/u in the Wound Care Clinic after discharge. 4) I will round on the pt weekly while she is in house. - Patient Problems (1) Diabetic foot ulcer associated with type 2 diabetes mellitus Current Visit: Yes Status: Acute Qualifiers: Diabetic foot ulcer location: toe Laterality: right Non-pressure ulcer stage: unspecified non-pressure ulcer stage Qualified Code(s): E11.621 - Type 2 diabetes mellitus with foot ulcer; L97.519 - Non-pressure chronic ulcer of other part of right foot with unspecified severity Subjective Date of service: 06/08/17 Patient Reports: Positive: no new complaints Objective Vital Signs - 12hr 06/08/17 06/08/17 06/08/17 08:26 08:35 08:49 Temperature 99.1 F Pulse Rate 87 88 Pulse Rate [ Apical] Pulse Rate [ Left Dorsalis Pedis] Pulse Rate [ Left Radial] Pulse Rate [ Right Dorsalis Pedis] Pulse Rate [ Right Radial] Respiratory 20 Rate Blood Pressure 174/83 175/85 O2 Sat by Pulse 87 94 Oximetry 06/08/17 06/08/17 06/08/17 10:06 10:35 10:45 Temperature 99.2 F Pulse Rate 87 86 87 Pulse Rate [ Apical] Pulse Rate [ Left Dorsalis Pedis] Pulse Rate [ Left Radial] Pulse Rate [ Right Dorsalis Pedis] Pulse Rate [ Right Radial] Respiratory 18 Rate Blood Pressure 174/83 151/81 141/74 O2 Sat by Pulse Oximetry 06/08/17 06/08/17 06/08/17 11:00 11:15 11:30 Temperature Pulse Rate 87 87 84 Pulse Rate [ Apical] Pulse Rate [ Left Dorsalis Pedis] Pulse Rate [ Left Radial] Pulse Rate [ Right Dorsalis Pedis] Pulse Rate [ Right Radial] Respiratory Rate Blood Pressure 163/86 170/87 162/89 O2 Sat by Pulse Oximetry 06/08/17 06/08/17 06/08/17 11:45 12:00 12:15 Temperature Pulse Rate 82 82 81 Pulse Rate [ Apical] Pulse Rate [ Left Dorsalis Pedis] Pulse Rate [ Left Radial] Pulse Rate [ Right Dorsalis Pedis] Pulse Rate [ Right Radial] Respiratory Rate Blood Pressure 171/90 161/80 159/71 O2 Sat by Pulse Oximetry 06/08/17 06/08/17 06/08/17 12:30 12:45 13:00 Temperature Pulse Rate 81 80 79 Pulse Rate [ Apical] Pulse Rate [ Left Dorsalis Pedis] Pulse Rate [ Left Radial] Pulse Rate [ Right Dorsalis Pedis] Pulse Rate [ Right Radial] Respiratory Rate Blood Pressure 162/87 154/77 165/81 O2 Sat by Pulse Oximetry 06/08/17 06/08/17 06/08/17 13:15 13:30 13:45 Temperature Pulse Rate 79 79 78 Pulse Rate [ Apical] Pulse Rate [ Left Dorsalis Pedis] Pulse Rate [ Left Radial] Pulse Rate [ Right Dorsalis Pedis] Pulse Rate [ Right Radial] Respiratory Rate Blood Pressure 158/81 166/82 167/80 O2 Sat by Pulse Oximetry 06/08/17 06/08/17 06/08/17 14:00 14:15 14:26 Temperature Pulse Rate 78 78 Pulse Rate [ 76 Apical] Pulse Rate [ 84 Left Dorsalis Pedis] Pulse Rate [ 72 Left Radial] Pulse Rate [ 84 Right Dorsalis Pedis] Pulse Rate [ 84 Right Radial] Respiratory Rate Blood Pressure 162/83 169/83 O2 Sat by Pulse Oximetry 06/08/17 06/08/17 06/08/17 14:35 14:50 15:29 Temperature 98.8 F Pulse Rate 78 90 79 Pulse Rate [ Apical] Pulse Rate [ Left Dorsalis Pedis] Pulse Rate [ Left Radial] Pulse Rate [ Right Dorsalis Pedis] Pulse Rate [ Right Radial] Respiratory 18 Rate Blood Pressure 171/85 176/86 166/83 O2 Sat by Pulse Oximetry 06/08/17 15:32 Temperature 98.6 F Pulse Rate 79 Pulse Rate [ Apical] Pulse Rate [ Left Dorsalis Pedis] Pulse Rate [ Left Radial] Pulse Rate [ Right Dorsalis Pedis] Pulse Rate [ Right Radial] Respiratory 18 Rate Blood Pressure 166/83 O2 Sat by Pulse Oximetry - Integumentary other (Right great toe plantar ulcer was sharply debrided down to its base. Cultures of the base were obtained.) - Labs 06/07/17 12:11 06/05/17 04:00 - Imaging Additional Studies: Arterial dopplers of the LE's were unremarkable.
--- NOTE | 2017-06-08 17:28 | Progress Note ---
Assessment and Plan Assessment and plan: 37-year-old -Citizen Of [place] female with past medical history significant for hypertension, diabetes mellitus, CHF, asthma, end-stage renal disease on hemodialysis, gastroparesis, COPD on home oxygen presented to the emergency department complaining of shortness of breath, abdominal pain, bilateral leg swelling. The patient missed dialysis on Tuesday due to transportation issue but had dialysis yesterday and the plan was to repeat hemodialysis today. The patient has shortness of breath, cough since Tuesday. While she was in dialysis yesterday the dialysis staff advised her to go to the hospital but patient preferred to go home. Patient presented today complaining of abdominal pain, shortness of breath and leg swelling getting worse. Abdominal pain, mid abdomen, sharp pain, 10 out of 10 in intensity, with no radiation, associated with nausea and vomiting, aggravated with eating, relieved with Dilaudid. She said the pain is no different from the usual pain from gastroparesis. Patient denied fever, chills, chest pain, palpitation. Patient was admitted to the hospital for sepsis, cellulitis and was discharged on 05/24/17 with IV vancomycin and clindamycin, she finished her medications. She has also on the right foot and scheduled to see Dr. Weston as an outpatient. Chronic Recurrent abdominal pain Opioid dependent sydnrom Cellulitis of the Right great toe ulcer-Diabetic ulcer Sepsis Unknown etiology AV fistula pain with swelling Gastroparesis Hypertension Acute respiratory failure improving COPD Severe Anemia Plan: * supportive care, continue abx per ID * S/P Callus debridement. * MRI Reviewed no evidence of osteomyelitis, patient with recent AVF cellulits, also plantar area concerning for cellulitis with possible presumed myositis/ fascitis * s/p 1 PRBC, recheck h.h * Continue vancomycin and Zosyn renally dosed * Vascular, surgical, ID consult noted. Recommendation on discharge Levaquin 750 MG PO q48 HR Clindamycin 300mg PO q8hr for total of 14 06/05 TO 06/18 * Continue with care * Planned for fistulogram today * called pharmacy and patient last filled Nov 2015 for ativan 1mg * Planned for atrial Dopplers normal * Continue pain control per home dose. * DVT/GI prophy * Plan of care discussed with Surgery and Patient * Anticipate discharge History Interval history: Patient seen and examined today complaints of recurrent abdominal pain. she had a successful I/D today. No fever reported Hospitalist Physical - Physical exam Narrative exam: VITAL SIGNS: Reviewed. GENERAL: The patient appeared well nourished and normally developed. Vital signs as documented. HEAD: No signs of head trauma. EYES: Pupils are equal. Extraocular motions intact. EARS: Hearing grossly intact. MOUTH: Oropharynx is normal. NECK: No adenopathy, no JVD. CHEST: Chest with clear breath sounds bilaterally. No wheezes, rales, or rhonchi. CARDIAC: Regular rate and rhythm. S1 and S2, without murmurs, gallops, or rubs. VASCULAR: Right upper extremity AV fistula, No Edema. Peripheral pulses normal and equal in all extremities. ABDOMEN: Soft, without detectable tenderness. No sign of distention. No rebound or guarding, and no masses palpated. Bowel Sounds normal. MUSCULOSKELETAL: Good range of motion of all major joints. Extremities without clubbing, cyanosis or edema. NEUROLOGIC EXAM: Alert and oriented x 3. No focal sensory or strength deficits. Speech normal. Follows commands. PSYCHIATRIC: Mood normal. SKIN: dressing in place at the planter surface of right foot and also a scar because of left foot - Constitutional Vitals: Temp Pulse Resp BP Pulse Ox 98.6 F 79 18 166/83 94 06/08/17 15:32 06/08/17 15:32 06/08/17 15:32 06/08/17 15:32 06/08/17 08:49 General appearance: Present: no acute distress Results - Labs CBC & Chem 7: 06/07/17 12:11 06/05/17 04:00 Labs: Laboratory Last Values WBC 6.3 K/mm3 (4.5-11.0) 06/05/17 04:00 RBC 2.31 M/mm3 (3.65-5.03) L 06/05/17 04:00 Hgb 7.5 gm/dl (10.1-14.3) L 06/07/17 12:11 Hct 23.0 % (30.3-42.9) L 06/07/17 12:11 MCV 90 fl (79-97) 06/05/17 04:00 MCH 29 pg (28-32) 06/05/17 04:00 MCHC 33 % (30-34) 06/05/17 04:00 RDW 18.6 % (13.2-15.2) H 06/05/17 04:00 Plt Count 220 K/mm3 (140-440) 06/05/17 04:00 Lymph % (Auto) 11.2 % (13.4-35.0) L 06/05/17 04:00 King % (Auto) 6.8 % (0.0-7.3) 06/05/17 04:00 Eos % (Auto) 1.7 % (0.0-4.3) 06/05/17 04:00 Baso % (Auto) 0.5 % (0.0-1.8) 06/05/17 04:00 Lymph # 0.7 K/mm3 (1.2-5.4) L 06/05/17 04:00 King # 0.4 K/mm3 (0.0-0.8) 06/05/17 04:00 Eos # 0.1 K/mm3 (0.0-0.4) 06/05/17 04:00 Baso # 0.0 K/mm3 (0.0-0.1) 06/05/17 04:00 Seg Neutrophils % 79.8 % (40.0-70.0) H 06/05/17 04:00 Seg Neutrophils # 5.0 K/mm3 (1.8-7.7) 06/05/17 04:00 Sodium 137 mmol/L (137-145) 06/05/17 04:00 Potassium 4.4 mmol/L (3.6-5.0) 06/05/17 04:00 Chloride 94.8 mmol/L (98-107) L 06/05/17 04:00 Carbon Dioxide 29 mmol/L (22-30) 06/05/17 04:00 Anion Gap 18 mmol/L 06/05/17 04:00 BUN 12 mg/dL (7-17) 06/05/17 04:00 Creatinine 3.7 mg/dL (0.7-1.2) H 06/05/17 04:00 Estimated GFR 17 ml/min 06/05/17 04:00 BUN/Creatinine Ratio 3.24 % 06/05/17 04:00 Glucose 103 mg/dL (65-100) H 06/05/17 04:00 POC Glucose 129 (70-105) H 06/08/17 17:10 Calcium 8.3 mg/dL (8.4-10.2) L 06/05/17 04:00 C-Reactive Protein 7.00 mg/dL (0.00-1.30) H 06/05/17 21:40 Blood Type B POSITIVE 06/05/17 08:45 Antibody Screen Positive 06/05/17 08:45 Antibody Identification Anti-E 06/05/17 08:45 Direct Antiglob Test Negative 06/05/17 08:45 SUSANNAH, Poly Interpret Negative 06/05/17 08:45 Crossmatch See Detail 06/05/17 08:45
[2017-06-08 22:59] LABS: ISTAT DEVICE 0
[2017-06-08] MEDS: ATIVAN PO SCH (23:06)
[2017-06-09] MEDS: BENADRYL IV PRN ×2 (02:36→11:29)
[2017-06-09] MEDS: ZOSYN/NS 2.25 GM/50ML 2.25 GM/50 ML BAG IV SCH ×2 (06:14→13:35)
[2017-06-09] MEDS: HEPARIN SUB-Q SCH ×2 (06:15→13:34)
[2017-06-09] MEDS: CARAFATE PO SCH ×2 (08:30→13:35)
[2017-06-09] MEDS: NEURONTIN PO SCH ×2 (08:30→13:34)
[2017-06-09] MEDS: APRESOLINE PO SCH ×2 (08:30→13:35)
[2017-06-09] MEDS: NORMODYNE PO SCH ×2 (08:30→13:34)
[2017-06-09] MEDS: CATAPRES PO SCH ×2 (08:30→16:07)
[2017-06-09 09:14] VITALS: BP 165/87
[2017-06-09 09:59] LABS: ISTAT Base Excess TNR
[2017-06-09 10:00] LABS: ISTAT HCO3 TNR; ISTAT PCO2 TNR (35-45); ISTAT PH TNR (7.35-7.45)
[2017-06-09 10:01] LABS: ISTAT PO2 TNR (80-105); ISTAT SO2 TNR; ISTAT TCO2 TNR
[2017-06-09] MEDS: ROXICODONE PO SCH ×2 (10:07→13:36)
[2017-06-09] MEDS: PROCARDIA XL PO SCH (10:07)
[2017-06-09] MEDS: COZAAR PO SCH (10:07)
[2017-06-09] MEDS: PROTONIX PO SCH (10:07)
--- NOTE | 2017-06-09 10:20 | Discharge Summary ---
Providers - Providers Date of Admission: 06/04/17 09:43 Date of discharge: 06/09/17 Attending physician: HEYDI SAVAGE MD 06/04/17 10:40 Consult to Wound/ET Nurse [CONS] Routine Reason For Exam: wound eval 06/05/17 12:05 Consult to Physician [CONS] Routine Consulting Provider: SURESH RUIZ Reason For Exam: fever, right foot ulcer Place consult to:: ID Notified:: YES Was contact made?: Yes If yes, spoke with:: DR SMITH Time called:: 12:54 06/06/17 18:31 Consult to Physician [CONS] Routine Consulting Provider: AZAEL LOPEZ Reason For Exam: Right foot ulcer Place consult to:: Dr. Lopez Notified:: Michael ACKERMAN Phone number called:: Was contact made?: Yes If yes, spoke with:: Radha-Office Time called:: 09:07 Comment:: Patient has O/P appointment Primary care physician: CHEMICAL OPERATOR Hospitalization Reason for admission: GASTROPARESIS Condition: Stable Hospital course: 37-year-old -[place] female with past medical history significant for hypertension, diabetes mellitus, CHF, asthma, end-stage renal disease on hemodialysis, gastroparesis, COPD on home oxygen presented to the emergency department complaining of shortness of breath, abdominal pain, bilateral leg swelling. The patient missed dialysis on Tuesday due to transportation issue but had dialysis yesterday and the plan was to repeat hemodialysis today. The patient has shortness of breath, cough since Tuesday. While she was in dialysis yesterday the dialysis staff advised her to go to the hospital but patient preferred to go home. Patient presented today complaining of abdominal pain, shortness of breath and leg swelling getting worse. Abdominal pain, mid abdomen, sharp pain, 10 out of 10 in intensity, with no radiation, associated with nausea and vomiting, aggravated with eating, relieved with Dilaudid. She said the pain is no different from the usual pain from gastroparesis. Patient denied fever, chills, chest pain, palpitation. Patient was admitted to the hospital for sepsis, cellulitis and was discharged on 05/24/17 with IV vancomycin and clindamycin, she finished her medications. She has also on the right foot and scheduled to see Dr. Weston as an outpatient. She during this hospitalization had excision of caluous in the right foot by surgery and will follow with Podiatry outaptient. she states that she has appointment with them. she continued on dialysis and was also seen by vascular for fistulogram and angioplasty. she was seen by ID for SIRS and considering imgaing finding of cellulitis and presumed myosistis and fascitis, she was treated with abx. we did recommend due to symptomatic gastroparessis an evaluation at the [facility] for possible evaluation for Pacemaker. the patient verbalized understanding. she was hypoxic on ambulation and at night and although has oxygen as needed at home, she is now requiring it with ambulation. I have also recommended a noctornal o2 study. Symptomatic Gastroparesis Chronic Recurrent abdominal pain Opioid dependent syndrome Hypoxia Cellulitis of the Right great toe ulcer-Diabetic foot ulcer Sepsis Unknown etiology AV fistula pain with swelling- S/P Fistulogram AND ANGIOPLASTY Myostitis/Fascitis right hallux Hypertension Acute respiratory failure improving COPD Severe Anemia Disposition: TO HOME OR SELFCARE Time spent for discharge: 35 MINS Core Measure Documentation - Palliative Care Palliative Care/ Comfort Measures: Not Applicable - Core Measures Any of the following diagnoses?: none - VTE Discharge Requirements Deep Vein Thrombosis/Pulmonary Embolism Present on Admission: No Exam - Physical Exam Narrative exam: VITAL SIGNS: Reviewed. GENERAL: The patient appeared well nourished and normally developed. Vital signs as documented. HEAD: No signs of head trauma. EYES: Pupils are equal. Extraocular motions intact. EARS: Hearing grossly intact. MOUTH: Oropharynx is normal. NECK: No adenopathy, no JVD. CHEST: Chest with clear breath sounds bilaterally. No wheezes, rales, or rhonchi. CARDIAC: Regular rate and rhythm. S1 and S2, without murmurs, gallops, or rubs. VASCULAR: Right upper extremity AV fistula, No Edema. Peripheral pulses normal and equal in all extremities. ABDOMEN: Soft, without detectable tenderness. No sign of distention. No rebound or guarding, and no masses palpated. Bowel Sounds normal. MUSCULOSKELETAL: Good range of motion of all major joints. Extremities without clubbing, cyanosis or edema. NEUROLOGIC EXAM: Alert and oriented x 3. No focal sensory or strength deficits. Speech normal. Follows commands. PSYCHIATRIC: Mood normal. SKIN: dressing in place at the planter surface of right foot and also a scar because of left foot - Constitutional Vitals: Temp Pulse Resp BP Pulse Ox 98.4 F 80 20 165/87 97 06/09/17 07:00 06/09/17 08:30 06/09/17 07:00 06/09/17 08:30 06/09/17 09:33 Plan Activity: advance as tolerated, fall precautions Diet: diabetic, renal Special Instructions: record daily BP diary, record blood sugar diary, other ( FOLLOW UP WITH WOUND CARE.) Durable Medical Equipment Needed Upon Discharge: other (o2 2lpm at night) Additional Instructions: MUST FOLLOW WITH PULMONARY FOR NOCTURNAL O2 SLEEP STUDY. MUST FOLLOW WITH PODIATRY IN 1-2 WEEKS Follow up with: PRIMARY MD YARITZA [Primary Care Provider] - 3-5 Days EMIL BOWENS MD [Staff Physician] - 7 Days TERRI MORAN MD [Staff Physician] - 7 Days Prescriptions: Clindamycin [Clindamycin CAP] 300 mg PO Q8H 10 Days Levofloxacin [Levaquin] 750 mg PO Q48H 10 Days
[2017-06-09] MEDS: PHENERGAN PO PRN (11:29)
--- NOTE | 2017-06-09 11:37 | Progress Note ---
Assessment and Plan Assessment: 1. ESRD on HD 2. Uncontrolled type 2DM 3. Hypertension 4. Fluid overload 5. Gastroparesis 6. Diabetic foot ulcer Plan: - cont. HD on MWF schedule - improved BP/fluid status on HD - monitor BP on current medications - s/p angiopasty on 06/07 - Wound care consult, ABXs as per ID Subjective Date of service: 06/09/17 Principal diagnosis: end-stage renal disease Interval history: Pt awake, alert, in NAD, reports that she had pain at the site of AVF towards the end of HD Objective - Vital Signs Vital signs: Vital Signs - 12hr 06/08/17 06/09/17 06/09/17 23:40 00:02 00:50 Temperature 99.6 F Pulse Rate 80 Respiratory 17 20 Rate Respiratory 20 Rate [Left Chest] Blood Pressure 173/84 O2 Sat by Pulse 95 Oximetry 06/09/17 06/09/17 06/09/17 07:00 08:30 09:33 Temperature 98.4 F Pulse Rate 81 80 Respiratory 20 Rate Respiratory Rate [Left Chest] Blood Pressure 151/75 165/87 O2 Sat by Pulse 99 97 Oximetry 06/09/17 10:00 Temperature Pulse Rate Respiratory Rate Respiratory 20 Rate [Left Chest] Blood Pressure O2 Sat by Pulse Oximetry - General Appearance General appearance: well-developed, well-nourished, appears stated age EENT: ATNC, PERRL, mucous membranes moist Neck: no JVD Respiratory: Present: Clear to Ascultation Cardiology: regular, S1S2 Gastrointestinal: normal, normoactive bowel sounds Integumentary: no rash, other (no edema ) Neurologic: no focal deficit, alert and oriented x3, strength 5/5, CN 3-12 intact Psychiatric: mood/affect appropriate, cooperative - Lab 06/07/17 12:11 06/05/17 04:00 Most recent lab results Calcium 8.3 mg/dL (8.4-10.2) L 06/05/17 04:00
[2017-06-09] MEDS ORDERED: FLUSH HEPARIN IV ONE (15:45)
--- NOTE | 2017-06-09 15:53 | Progress Note ---
Assessment and Plan Assessment: 1) SIRS: resolved. Unclear etiology ? infected right great toe diabetic ulcer +/ - AVF site infection. 2) Right foot diabetic ulcer at great toe with cellulitis and myositis -CRP 7 -MRI showed edema of plantar area c/o cellulitis and presumed myositis/ fascitis. No evidence of osteomyelitis. -Arterial US leg neg -HUGO normal -S/P bedside debridement on 06/08 - cultures pending 3) Recent right arm AVF cellulitis - US negative for abscess / thrombus - still c/o tenderness and edema ? fistula stenosis -S/P fistulogram yesterday-s/p angioplasty 4) Diabetes 5) Gastroparesis - better 6) ESRD on HD via AVF 7) Port in place Plan: -Patient is going for wound debridement. Please send deep tissue for cultures and Gram stain -continue vancomycin and zosyn renally dosed- day 5 of 14 -Discussed with patient -upon discharge will do levaquin 750 mg PO q 48 hour and clindamycin 300 mg po q 8 hours total 14 days from 06/05 to 06/18. -f/u wound care I will sign off Thank you Dr Cisneros for your consultation, will follow up with you. Cat Marin MD Infectious Diseases Specialist [facility] M [phone] O [phone] Subjective Date of service: 06/09/17 Principal diagnosis: end-stage renal disease Interval history: Patient feels better abdominal pain and nausea - better, afebrile. Microbiology: Blood cultures: 06/04 neg Urine cultures: Respiratory cultures: Wound cultures: 06/08 great toe pending Stool cultures: Current Antimicrobials: Zosyn 06/05 Vancomycin 06/05 Objective - Exam Narrative Exam: General appearance: Alert in NAD, conversant Eyes: PERRLA non icteric conjunctivae HENT: Atraumatic; oropharynx clear with moist mucous membranes and no mucosal ulcerations/no oral thrush; normal hard and soft palate. Normal external ears. Neck: Trachea midline; supple, no thyromegaly or lymphadenopathy Lungs: CTA, with normal respiratory effort and no intercostal retractions CV: RRR, no murmur Abdomen: Soft, non-tender; no masses or hepatosplenomegaly Extremities: + peripheral edema +right great toe ulcer surrounding by callus, non drainage Skin: + right arm AVF site with tenderness and edema no erythema Psych: Appropriate affect, alert and oriented to person, place and time. Neuro: alert and oriented x 3. Moving all extermities Lines: No CVL / PICC - Constitutional Vitals: Vital Signs Temp Pulse Resp BP Pulse Ox 98.4 F 80 20 165/87 97 06/09/17 07:00 06/09/17 08:30 06/09/17 10:00 06/09/17 08:30 06/09/17 09:33 Temperature -Last 24 Hours Temperature 98.4 F Temperature 99.6 F - Labs CBC & Chem 7: 06/07/17 12:11 06/05/17 04:00 Labs: Abnormal lab results 06/08/17 06/08/17 06/09/17 Range/Units 17:10 21:07 11:49 POC Glucose 129 H 111 H 110 H (70-105)
== END 2017-06-09 17:25 | disposition home or self-care (01) | DRG 853 ==
LOC: ED 04:07 → 4A 09:43 → 3A 06-08 16:47
PROVIDERS: ADMIT Internal Medicine; ATTEND Internal Medicine
PROC: 30233N1 Transfusion of Nonautologous Red Blood Cells into Peripheral Vein, Percutaneous Approach (ICD-10-PCS; 2017-06-04)
PROC: 5A09457 Assistance with Respiratory Ventilation, 24-96 Consecutive Hours, Continuous Positive Airway Pressure (ICD-10-PCS; 2017-06-04)
PROC: 5A1D60Z (ICD-10-PCS; 2017-06-04)
PROC: 0JDQ0ZZ Extraction of Right Foot Subcutaneous Tissue and Fascia, Open Approach (ICD-10-PCS; 2017-06-04)
PROC: 4A033R1 Measurement of Arterial Saturation, Peripheral, Percutaneous Approach (ICD-10-PCS; 2017-06-04)
PROC: 057Y3ZZ Dilation of Upper Vein, Percutaneous Approach (ICD-10-PCS; principal; 2017-06-07)
PROC: B51W1ZZ Fluoroscopy of Dialysis Shunt/Fistula using Low Osmolar Contrast (ICD-10-PCS; 2017-06-07)
DX: A41.9 Sepsis, unspecified organism (principal); N18.6 End stage renal disease; J96.01 Acute respiratory failure with hypoxia; T82.898A Other specified complication of vascular prosthetic devices, implants and grafts, initial encounter; L03.113 Cellulitis of right upper limb; I13.2 Hypertensive heart and chronic kidney disease with heart failure and with stage 5 chronic kidney disease, or end stage renal disease; F11.20 Opioid dependence, uncomplicated; E11.43 Type 2 diabetes mellitus with diabetic autonomic (poly)neuropathy; E87.70 Fluid overload, unspecified; K31.84 Gastroparesis; L97.519 Non-pressure chronic ulcer of other part of right foot with unspecified severity; Z60.2 Problems related to living alone; E11.621 Type 2 diabetes mellitus with foot ulcer; M60.9 Myositis, unspecified; J44.9 Chronic obstructive pulmonary disease, unspecified; I50.9 Heart failure, unspecified; E11.22 Type 2 diabetes mellitus with diabetic chronic kidney disease; M19.90 Unspecified osteoarthritis, unspecified site; Z90.49 Acquired absence of other specified parts of digestive tract; Z98.51 Tubal ligation status; Z83.3 Family history of diabetes mellitus; Z82.49 Family history of ischemic heart disease and other diseases of the circulatory system; Z88.6 Allergy status to analgesic agent; Z99.2 Dependence on renal dialysis; Z88.8 Allergy status to other drugs, medicaments and biological substances; Z80.1 Family history of malignant neoplasm of trachea, bronchus and lung
CPT/HCPCS: 36415; 36430; 36902; 71010; 74176; 80048; 82803; 82962; 85014; 85018; 85025; 85027; 86140; 86850; 86870; 86880; 86900; 86901; 86902; 86922; 87040; 87076; 87116; 87186; 93005; 93010; 93922; 94660; 94760; C1725; C1769; C1894; J0885; J1170; J1200; J1642; J1644; J2250; J2270; J2405; J2543; J3010; J3370; J7030; J7040; J7050; P9016; Q0169; Q9967

== ENCOUNTER 2017-06-21 10:22 | Emergency (ER) | payer MEDICARE ==
[2017-06-21] MEDS ORDERED: NACL 0.9% 500 ML 500 ML IV ONE (10:44)
[2017-06-21] MEDS ORDERED: NACL 0.9% 1000 ML 1,000 ML IV ONE (11:04)
[2017-06-21] MEDS ORDERED: ZOFRAN IV ONE (11:04)
[2017-06-21] MEDS ORDERED: MORPHINE IV ONE ×2 (11:04→12:35)
[2017-06-21] MEDS ORDERED: BENADRYL IV ONE (11:04)
--- NOTE | 2017-06-21 11:11 | Emergency Department Report ---
ED Abdominal Pain HPI - General Chief Complaint: Abdominal Pain Stated Complaint: DIFFICULTY BREATHING/ABDOMINAL PAIN Time Seen by Provider: 06/21/17 11:01 Source: patient Mode of arrival: Stretcher Limitations: No Limitations - History of Present Illness Initial Comments: 37-year-old female well-known to me with end-stage renal disease here with complaint of abdominal pain nausea vomiting. Patient also complains of arm pain around her dialysis access. Patient states she received dialysis on Tuesday and consider traditional Tuesday due to increased edema last week. No chest pain shortness of breath. MD Complaint: abdominal pain -: Sudden Location: diffuse Radiation: none Consistency: constant Worsens With: nothing Associated Symptoms: nausea, vomiting. denies: chills, constipation - Related Data Home Medications Medication Instructions Recorded Confirmed Last Taken Cyclobenzaprine HCl [Flexeril 5 MG 10 mg PO BID PRN 05/24/17 06/04/17 06/03/17 TAB] Dicyclomine [Bentyl] 20 mg PO QID PRN 05/24/17 06/04/17 06/03/17 Gabapentin [Neurontin] 100 mg PO TID 05/24/17 06/04/17 06/03/17 Labetalol HCl 300 mg PO TID 05/24/17 06/04/17 06/03/17 Losartan [Cozaar] 100 mg PO BID 05/24/17 06/04/17 06/03/17 NIFEdipine XL [Procardia Xl] 90 mg PO QDAY 05/24/17 06/04/17 06/03/17 Oxycodone HCl [Roxicodone TAB] 30 mg PO QID 05/24/17 06/04/17 06/03/17 Promethazine [Phenergan TAB] 25 mg PO Q6H PRN 05/24/17 06/04/17 06/03/17 Sucralfate [Carafate] 1 gm PO TID 05/24/17 06/04/17 06/03/17 SUMAtriptan SUCCINATE [Imitrex] 50 mg PO PRN PRN 05/26/17 06/04/17 06/03/17 Previous Rx's Medication Instructions Recorded Last Taken Type hydrALAZINE [Apresoline TAB] 100 mg PO TID #90 tab 03/06/17 06/03/17 Rx Pantoprazole [Protonix TAB] 40 mg PO BID #20 tablet 04/12/17 06/03/17 Rx cloNIDine [Catapres] 0.2 mg PO Q8H #30 tablet 05/30/17 06/03/17 Rx Clindamycin [Clindamycin CAP] 300 mg PO Q8H 10 Days 06/09/17 Unknown Rx Levofloxacin [Levaquin] 750 mg PO Q48H 10 Days 06/09/17 Unknown Rx Allergies Allergy/AdvReac Type Severity Reaction Status Date / Time lisinopril Allergy Shortness Verified 06/04/17 07:41 of Breath oxycodone HCl [From Percocet] Allergy Itching Verified 06/04/17 07:41 morphine AdvReac Anaphylaxis Verified 06/04/17 07:41 ED Review of Systems ROS: Stated complaint: DIFFICULTY BREATHING/ABDOMINAL PAIN Other details as noted in HPI Constitutional: weakness Eyes: denies: eye pain, eye discharge, vision change ENT: denies: ear pain, throat pain Respiratory: denies: cough, shortness of breath, wheezing Cardiovascular: denies: chest pain, palpitations Endocrine: no symptoms reported Gastrointestinal: abdominal pain, nausea, vomiting. denies: diarrhea Genitourinary: as per HPI. denies: urgency, dysuria, discharge Musculoskeletal: denies: back pain, joint swelling, arthralgia Skin: denies: rash, lesions Neurological: denies: headache, weakness, paresthesias Psychiatric: denies: anxiety, depression Hematological/Lymphatic: denies: easy bleeding, easy bruising ED Past Medical Hx - Past Medical History Hx Hypertension: Yes Hx Heart Attack/AMI: No Hx Congestive Heart Failure: Yes Hx Diabetes: Yes Hx Pulmonary Embolism: No Hx Liver Disease: No Hx Renal Disease: Yes (Dialysis MWF) Hx Arthritis: Yes Hx Headaches / Migraines: No Hx Seizures: Yes Hx Kidney Stones: No Hx Psychiatric Treatment: No Hx Asthma: Yes (PATIENT IS ASTHMATIC) Hx COPD: Yes Hx HIV: No Additional medical history: gastroparesis. Recent infection to right great toe , hospitalized at [facility]. - Surgical History Past Surgical History?: Yes Hx Cholecystectomy: Yes (18 years ago) Additional Surgical History: c section, tubal ligation. fistula right arm - Family History Family history: diabetes - Social History Smoking Status: Never Smoker Substance Use Type: None - Medications Home Medications: Home Medications Medication Instructions Recorded Confirmed Last Taken Type hydrALAZINE [Apresoline TAB] 100 mg PO TID #90 tab 03/06/17 06/04/17 06/03/17 Rx Pantoprazole [Protonix TAB] 40 mg PO BID #20 tablet 04/12/17 06/04/17 06/03/17 Rx Cyclobenzaprine HCl [Flexeril 5 MG 10 mg PO BID PRN 05/24/17 06/04/17 06/03/17 History TAB] Dicyclomine [Bentyl] 20 mg PO QID PRN 05/24/17 06/04/17 06/03/17 History Gabapentin [Neurontin] 100 mg PO TID 05/24/17 06/04/17 06/03/17 History Labetalol HCl 300 mg PO TID 05/24/17 06/04/17 06/03/17 History Losartan [Cozaar] 100 mg PO BID 05/24/17 06/04/17 06/03/17 History NIFEdipine XL [Procardia Xl] 90 mg PO QDAY 05/24/17 06/04/17 06/03/17 History Oxycodone HCl [Roxicodone TAB] 30 mg PO QID 05/24/17 06/04/17 06/03/17 History Promethazine [Phenergan TAB] 25 mg PO Q6H PRN 05/24/17 06/04/17 06/03/17 History Sucralfate [Carafate] 1 gm PO TID 05/24/17 06/04/17 06/03/17 History SUMAtriptan SUCCINATE [Imitrex] 50 mg PO PRN PRN 05/26/17 06/04/17 06/03/17 History cloNIDine [Catapres] 0.2 mg PO Q8H #30 tablet 05/30/17 06/04/17 06/03/17 Rx Clindamycin [Clindamycin CAP] 300 mg PO Q8H 10 Days 06/09/17 Unknown Rx Levofloxacin [Levaquin] 750 mg PO Q48H 10 Days 06/09/17 Unknown Rx ED Physical Exam - General Limitations: No Limitations General appearance: alert, in no apparent distress - Head Head exam: Present: atraumatic, normocephalic - Eye Eye exam: Present: normal appearance. Absent: scleral icterus, conjunctival injection - ENT ENT exam: Present: mucous membranes moist - Neck Neck exam: Present: normal inspection - Respiratory Respiratory exam: Present: normal lung sounds bilaterally. Absent: respiratory distress, wheezes, rales - Cardiovascular Cardiovascular Exam: Present: normal rhythm, tachycardia, normal heart sounds. Absent: systolic murmur, diastolic murmur, rubs, gallop - GI/Abdominal GI/Abdominal exam: Present: soft, tenderness (mild diffuse), normal bowel sounds. Absent: distended - Extremities Exam Extremities exam: Present: normal inspection, other (fistula right upper arm, ulcer without drainage to the plantar surface of the right great toe) - Back Exam Back exam: Present: normal inspection - Neurological Exam Neurological exam: Present: alert, oriented X3 - Psychiatric Psychiatric exam: Present: normal affect, normal mood - Skin Skin exam: Present: warm, dry, intact, normal color. Absent: rash ED Course Vital Signs 06/21/17 06/21/17 06/21/17 10:38 12:44 13:59 Temperature 98.6 F Pulse Rate 104 H 99 H 97 H Respiratory 18 18 Rate Blood Pressure 204/104 Blood Pressure 198/94 165/81 [Left] O2 Sat by Pulse 94 94 94 Oximetry 06/21/17 06/21/17 06/21/17 14:54 14:56 15:20 Temperature Pulse Rate 98 H 97 H 103 H Respiratory 18 18 16 Rate Blood Pressure Blood Pressure 198/87 170/85 206/106 [Left] O2 Sat by Pulse 98 96 90 Oximetry ED Medical Decision Making - Lab Data Result diagrams: 06/21/17 11:30 06/21/17 11:30 Laboratory Results - last 24 hr 06/21/17 06/21/17 06/21/17 11:30 11:30 11:30 WBC 9.2 RBC 2.98 L Hgb 8.3 L Hct 26.0 L MCV 87 MCH 28 MCHC 32 RDW 17.5 H Plt Count 261 Lymph % (Auto) 4.7 L [place] % (Auto) 7.9 H Eos % (Auto) 0.0 Baso % (Auto) 0.4 Lymph # 0.4 L [place] # 0.7 Eos # 0.0 Baso # 0.0 Seg Neutrophils % 87.0 H Seg Neutrophils # 8.0 H PT 15.6 H INR 1.18 H VBG pH Sodium 140 Potassium 4.3 Chloride 93.8 L Carbon Dioxide 26 Anion Gap 25 BUN 45 H Creatinine 7.2 H Estimated GFR 8 BUN/Creatinine Ratio 6.25 Glucose 141 H Lactic Acid Calcium 9.0 Total Bilirubin 0.50 AST 16 ALT 19 Alkaline Phosphatase 116 Total Protein 8.2 Albumin 3.9 Albumin/Globulin Ratio 0.9 06/21/17 06/21/17 11:40 11:40 WBC RBC Hgb Hct MCV MCH MCHC RDW Plt Count Lymph % (Auto) [place] % (Auto) Eos % (Auto) Baso % (Auto) Lymph # [place] # Eos # Baso # Seg Neutrophils % Seg Neutrophils # PT INR VBG pH 7.418 Sodium Potassium Chloride Carbon Dioxide Anion Gap BUN Creatinine Estimated GFR BUN/Creatinine Ratio Glucose Lactic Acid 0.90 Calcium Total Bilirubin AST ALT Alkaline Phosphatase Total Protein Albumin Albumin/Globulin Ratio - Medical Decision Making 37-year-old female well-known to me with end-stage renal disease and multiple other medical problems here with complaint of abdominal pain nausea vomiting. Patient also complains of arm pain and right foot pain. Plan treat with IV fluids we'll check labs. Clinically I do not suspect that she needs emergent dialysis. Clinically she has some mild volume overload on chest x-ray. Discussed case with Dr. Coto and initial plan was to potentially admit patient. Dr. Coto evaluated patient and feels comfortable discharging the patient home. Portions of this chart were dictated with dictation software. There may be dictation errors contained within this note. Critical care attestation.: If time is entered above; I have spent that time in minutes in the direct care of this critically ill patient, excluding procedure time. ED Disposition Clinical Impression: Shortness of breath, Vomiting Disposition: - TO HOME OR SELFCARE Is pt being admited?: No Condition: Stable Instructions: Abdominal Pain (ED) Referrals: PRIMARY CARE, [Primary Care Provider] - 3-5 Days
--- NOTE | 2017-06-21 11:37 | XRay Report ---
AP chest x-ray. History: Dyspnea sepsis. Findings: The heart is enlarged with prominent central pulmonary vessels. Mild hazy opacity in the right lower lobe is present. The findings are not changed substantially since June 04, 2017. A right central line is unchanged in position. Impression: Persistent CHF.
[2017-06-21 11:51] LABS: Basophils % (Auto) 0.4 % (0.0-1.8); Hemoglobin 8.3 gm/dl (10.1-14.3); Mean Corpuscular HGB Conc 32 % (30-34); Mean Corpuscular Hemoglobin 28 pg (28-32); Mean Corpuscular Volume 87 fl (79-97); Platelet Count 261 K/mm3 (140-440); Red Blood Count 2.98 M/mm3 (3.65-5.03); Red Cell Distribution Width 17.5 % (13.2-15.2); White Blood Count 9.2 K/mm3 (4.5-11.0)
[2017-06-21 11:59] LABS: INR 1.18 (0.87-1.13)
[2017-06-21 12:09] LABS: Albumin 3.9 g/dL (3.9-5); Albumin/Globulin Ratio 0.9 %; BUN/Creatinine Ratio 6.25; Bilirubin,Total 0.5 mg/dL (0.1-1.2); Chloride 93.8 mmol/L (98-107); Potassium 4.3 mmol/L (3.6-5.0); Total Protein 8.2 g/dL (6.3-8.2)
[2017-06-21] MEDS ORDERED: MORPHINE ONE (12:33)
[2017-06-21] MEDS ORDERED: DILAUDID IV ONE (15:02)
--- NOTE | 2017-06-21 15:27 | Event Note ---
Date: 06/21/17 Patient evaluated in Er Frequent visits to ER for same complaint of Abdominal pain and vomiting. Patient lying comfortably. A/p Volume overload- minimal.Should be fine with her regular HD tomorrow and volume removal/Ultrafiltration. Gastroparesis-Advised small meals frequently. {Percocet 7.5/325 po tid prn Reglan 10 mg po qid prn
[2017-06-21] MEDS ORDERED: FLUSH HEPARIN IV ONE ×2 (16:06→16:17)
[2017-06-21 16:53] VITALS: BP 186/92
== END 2017-06-21 16:54 | disposition home or self-care (01) ==
LOC: ED 10:22
DX: I13.2 Hypertensive heart and chronic kidney disease with heart failure and with stage 5 chronic kidney disease, or end stage renal disease (principal); E11.22 Type 2 diabetes mellitus with diabetic chronic kidney disease; N18.6 End stage renal disease; I50.9 Heart failure, unspecified; M19.90 Unspecified osteoarthritis, unspecified site; J44.9 Chronic obstructive pulmonary disease, unspecified; Z99.2 Dependence on renal dialysis; Z88.6 Allergy status to analgesic agent; Z88.8 Allergy status to other drugs, medicaments and biological substances
CPT/HCPCS: 36415; 71010; 80053; 82140; 82805; 85025; 85610; 87040; 96374; 96375; 96376; 99285; J1170; J1200; J1642; J2270; J2405; J7030

== ENCOUNTER 2017-07-14 10:39 | Inpatient (IN) | payer MEDICARE ==
[2017-07-14] MEDS ORDERED: NITROSTAT SL ONE ×2 (11:01→14:24)
[2017-07-14] MEDS ORDERED: SUBLIMAZE IV ONE ×2 (11:34→14:29)
[2017-07-14] MEDS ORDERED: REGLAN IV ONE (11:34)
[2017-07-14] MEDS ORDERED: PEPCID IV ONE (11:35)
[2017-07-14] MEDS ORDERED: PHENERGAN PO ONE (11:36)
[2017-07-14] MEDS ORDERED: SUBLIMAZE ONE (11:37)
--- NOTE | 2017-07-14 11:37 | Emergency Department Report ---
ED General Adult HPI - General Chief complaint: Chest Pain Stated complaint: ABDOMINAL PAIN, CHEST PAIN Time Seen by Provider: 07/14/17 11:33 Source: patient Mode of arrival: Stretcher Limitations: No Limitations - History of Present Illness Initial comments: Pt is a 37-year-old female past medical history of dialysis Tuesday once a Tuesday , hypertension who presents with chest pain that has been going on since this morning. Patient states that chest pain is severe it as a 10 out of 10 as located in the epigastric area radiates to her chest. She says nothing makes it better or worse. She states that she also has a metallic taste in her mouth. Patient is nauseated. Patient states the pain is burning and achy type of pain. Patient denies any vomiting or having any diarrhea. - Related Data Home Medications Medication Instructions Recorded Confirmed Last Taken Promethazine [Phenergan TAB] 25 mg PO Q6H PRN 05/24/17 06/25/17 06/03/17 Sucralfate [Carafate] 1 gm PO TID 05/24/17 06/25/17 06/03/17 SUMAtriptan SUCCINATE [Imitrex] 50 mg PO PRN PRN 05/26/17 06/25/17 06/03/17 Previous Rx's Medication Instructions Recorded Last Taken Type Levofloxacin [Levaquin TAB] 750 mg PO Q48H 10 Days 06/09/17 Unknown Rx Metoclopramide [Reglan TAB] 10 mg PO ACHS #40 tablet 06/21/17 Unknown Rx Oxycodone HCl/Acetaminophen 1 each PO Q6HR PRN #20 tablet 06/21/17 Unknown Rx [Percocet 7.5/325 mg] Cyclobenzaprine HCl [Flexeril 5 MG 10 mg PO BID PRN #20 tablet 06/27/17 Unknown Rx TAB] Dicyclomine [Bentyl] 20 mg PO QID PRN #60 capsule 06/27/17 Unknown Rx Gabapentin [Neurontin] 100 mg PO TID #90 capsule 06/27/17 Unknown Rx Labetalol HCl 300 mg PO TID #90 tablet 06/27/17 Unknown Rx Losartan [Cozaar] 100 mg PO BID #60 tablet 06/27/17 Unknown Rx NIFEdipine XL [Procardia Xl] 90 mg PO QDAY #30 tablet 06/27/17 Unknown Rx Oxycodone HCl [Roxicodone TAB] 30 mg PO QID #20 tablet 06/27/17 Unknown Rx Pantoprazole [Protonix TAB] 40 mg PO BID #20 tablet 06/27/17 Unknown Rx cloNIDine [Catapres] 0.2 mg PO Q8H #30 tablet 06/27/17 Unknown Rx hydrALAZINE [Apresoline TAB] 100 mg PO TID #90 tab 06/27/17 Unknown Rx Allergies Allergy/AdvReac Type Severity Reaction Status Date / Time lisinopril Allergy Shortness Verified 06/04/17 07:41 of Breath oxycodone HCl [From Percocet] Allergy Itching Verified 06/04/17 07:41 morphine AdvReac Anaphylaxis Verified 06/04/17 07:41 ED Review of Systems ROS: Stated complaint: ABDOMINAL PAIN, CHEST PAIN Other details as noted in HPI Constitutional: denies: chills, fever Eyes: denies: eye pain, eye discharge, vision change ENT: denies: ear pain, throat pain Respiratory: denies: cough, shortness of breath, wheezing Cardiovascular: chest pain. denies: palpitations Endocrine: no symptoms reported Gastrointestinal: nausea. denies: abdominal pain, diarrhea Genitourinary: denies: urgency, dysuria, discharge Musculoskeletal: denies: back pain, joint swelling, arthralgia Skin: denies: rash, lesions Neurological: denies: headache, weakness, paresthesias Psychiatric: denies: anxiety, depression Hematological/Lymphatic: denies: easy bleeding, easy bruising ED Past Medical Hx - Past Medical History Previous Medical History?: Yes Hx Hypertension: Yes Hx Heart Attack/AMI: No Hx Congestive Heart Failure: Yes Hx Diabetes: Yes Hx Pulmonary Embolism: No Hx Liver Disease: No Hx Renal Disease: Yes (Dialysis MWF) Hx Arthritis: Yes Hx Headaches / Migraines: No Hx Seizures: Yes Hx Kidney Stones: No Hx Psychiatric Treatment: No Hx Asthma: Yes (PATIENT IS ASTHMATIC) Hx COPD: Yes Hx HIV: No Additional medical history: gastroparesis. Recent infection to right great toe , hospitalized at [facility]. - Surgical History Past Surgical History?: Yes Hx Cholecystectomy: Yes (18 years ago) Additional Surgical History: c section, tubal ligation. fistula right arm - Social History Smoking Status: Never Smoker Substance Use Type: None - Medications Home Medications: Home Medications Medication Instructions Recorded Confirmed Last Taken Type Promethazine [Phenergan TAB] 25 mg PO Q6H PRN 05/24/17 06/25/17 06/03/17 History Sucralfate [Carafate] 1 gm PO TID 05/24/17 06/25/17 06/03/17 History SUMAtriptan SUCCINATE [Imitrex] 50 mg PO PRN PRN 05/26/17 06/25/17 06/03/17 History Levofloxacin [Levaquin TAB] 750 mg PO Q48H 10 Days 06/09/17 Unknown Rx Metoclopramide [Reglan TAB] 10 mg PO ACHS #40 tablet 06/21/17 06/25/17 Unknown Rx Oxycodone HCl/Acetaminophen 1 each PO Q6HR PRN #20 tablet 06/21/17 06/25/17 Unknown Rx [Percocet 7.5/325 mg] Cyclobenzaprine HCl [Flexeril 5 MG 10 mg PO BID PRN #20 tablet 06/27/17 Unknown Rx TAB] Dicyclomine [Bentyl] 20 mg PO QID PRN #60 capsule 06/27/17 Unknown Rx Gabapentin [Neurontin] 100 mg PO TID #90 capsule 06/27/17 Unknown Rx Labetalol HCl 300 mg PO TID #90 tablet 06/27/17 Unknown Rx Losartan [Cozaar] 100 mg PO BID #60 tablet 06/27/17 Unknown Rx NIFEdipine XL [Procardia Xl] 90 mg PO QDAY #30 tablet 06/27/17 Unknown Rx Oxycodone HCl [Roxicodone TAB] 30 mg PO QID #20 tablet 06/27/17 Unknown Rx Pantoprazole [Protonix TAB] 40 mg PO BID #20 tablet 06/27/17 Unknown Rx cloNIDine [Catapres] 0.2 mg PO Q8H #30 tablet 06/27/17 Unknown Rx hydrALAZINE [Apresoline TAB] 100 mg PO TID #90 tab 06/27/17 Unknown Rx ED Physical Exam - General Limitations: No Limitations General appearance: alert, in no apparent distress - Head Head exam: Present: atraumatic, normocephalic, other - Eye Eye exam: Present: other (blind in one eye ) - ENT ENT exam: Present: mucous membranes moist - Neck Neck exam: Present: normal inspection - Respiratory Respiratory exam: Present: normal lung sounds bilaterally. Absent: respiratory distress - Cardiovascular Cardiovascular Exam: Present: regular rate, normal rhythm. Absent: systolic murmur, diastolic murmur, rubs, gallop - GI/Abdominal GI/Abdominal exam: Present: soft, normal bowel sounds - Extremities Exam Extremities exam: Present: other (Right AV fistula with thrill ) - Back Exam Back exam: Present: normal inspection - Neurological Exam Neurological exam: Present: alert, oriented X3 - Psychiatric Psychiatric exam: Present: normal affect, normal mood - Skin Skin exam: Present: warm, dry, intact, normal color. Absent: rash ED Course Vital Signs 07/14/17 07/14/17 07/14/17 10:45 11:56 11:58 Temperature 98.1 F 98.4 F Pulse Rate 90 90 Respiratory 24 18 20 Rate Blood Pressure 216/99 Blood Pressure 216/99 [Right] O2 Sat by Pulse 84 99 100 Oximetry 07/14/17 07/14/17 11:59 12:29 Temperature Pulse Rate Respiratory 20 20 Rate Blood Pressure 216/99 Blood Pressure [Right] O2 Sat by Pulse Oximetry ED Medical Decision Making - Lab Data Result diagrams: 07/14/17 11:30 07/14/17 11:30 Lab Results 07/14/17 07/14/17 07/14/17 Range/Units 10:56 11:30 11:30 WBC 6.5 (4.5-11.0) K/mm3 RBC 2.91 L (3.65-5.03) M/mm3 Hgb 8.1 L (10.1-14.3) gm/dl Hct 25.3 L (30.3-42.9) % MCV 87 (79-97) fl MCH 28 (28-32) pg MCHC 32 (30-34) % RDW 17.8 H (13.2-15.2) % Plt Count 245 (140-440) K/mm3 Lymph % (Auto) 7.1 L (13.4-35.0) % [place] % (Auto) 5.9 (0.0-7.3) % Eos % (Auto) 0.3 (0.0-4.3) % Baso % (Auto) 0.6 (0.0-1.8) % Lymph # 0.5 L (1.2-5.4) K/mm3 [place] # 0.4 (0.0-0.8) K/mm3 Eos # 0.0 (0.0-0.4) K/mm3 Baso # 0.0 (0.0-0.1) K/mm3 Seg Neutrophils % 86.1 H (40.0-70.0) % Seg Neutrophils # 5.6 (1.8-7.7) K/mm3 Sodium 137 (137-145) mmol/L Potassium 4.0 (3.6-5.0) mmol/L Chloride 95.4 L (98-107) mmol/L Carbon Dioxide 30 (22-30) mmol/L Anion Gap 16 mmol/L BUN 17 (7-17) mg/dL Creatinine 4.4 H (0.7-1.2) mg/dL Estimated GFR 14 ml/min BUN/Creatinine Ratio 3.86 % Glucose 150 H (65-100) mg/dL POC Glucose 155 H (70-105) Calcium 9.1 (8.4-10.2) mg/dL Total Bilirubin (0.1-1.2) mg/dL Direct Bilirubin (0-0.2) mg/dL AST (5-40) units/L ALT (7-56) units/L Alkaline Phosphatase (35-129) units/L Troponin T 0.285 H* (0.00-0.029) ng/mL Total Protein (6.3-8.2) g/dL Albumin (3.9-5) g/dL Albumin/Globulin Ratio % Triglycerides 95 (2-149) mg/dL Cholesterol 137 (50-199) mg/dL LDL Cholesterol Direct 57 (50-130) mg/dL HDL Cholesterol 61 H (40-59) mg/dL Cholesterol/HDL Ratio 2.24 % 07/14/17 Range/Units 11:33 WBC (4.5-11.0) K/mm3 RBC (3.65-5.03) M/mm3 Hgb (10.1-14.3) gm/dl Hct (30.3-42.9) % MCV (79-97) fl MCH (28-32) pg MCHC (30-34) % RDW (13.2-15.2) % Plt Count (140-440) K/mm3 Lymph % (Auto) (13.4-35.0) % [place] % (Auto) (0.0-7.3) % Eos % (Auto) (0.0-4.3) % Baso % (Auto) (0.0-1.8) % Lymph # (1.2-5.4) K/mm3 [place] # (0.0-0.8) K/mm3 Eos # (0.0-0.4) K/mm3 Baso # (0.0-0.1) K/mm3 Seg Neutrophils % (40.0-70.0) % Seg Neutrophils # (1.8-7.7) K/mm3 Sodium (137-145) mmol/L Potassium (3.6-5.0) mmol/L Chloride (98-107) mmol/L Carbon Dioxide (22-30) mmol/L Anion Gap mmol/L BUN (7-17) mg/dL Creatinine (0.7-1.2) mg/dL Estimated GFR ml/min BUN/Creatinine Ratio % Glucose (65-100) mg/dL POC Glucose (70-105) Calcium (8.4-10.2) mg/dL Total Bilirubin 0.50 (0.1-1.2) mg/dL Direct Bilirubin < 0.2 (0-0.2) mg/dL AST 18 (5-40) units/L ALT 12 (7-56) units/L Alkaline Phosphatase 120 (35-129) units/L Troponin T (0.00-0.029) ng/mL Total Protein 7.8 (6.3-8.2) g/dL Albumin 3.8 L (3.9-5) g/dL Albumin/Globulin Ratio 1.0 % Triglycerides (2-149) mg/dL Cholesterol (50-199) mg/dL LDL Cholesterol Direct (50-130) mg/dL HDL Cholesterol (40-59) mg/dL Cholesterol/HDL Ratio % - EKG Data -: EKG Interpreted by Id - EKG Data 07/14/17 14:47 EKG shows sinus rhythm left atrial enlargement LVH and nonspecific T-wave abnormalities in V5 and V6. No ST segment elevation. - Medical Decision Making Medical diagnosis: Non-STEMI Differential diagnosis: Gastroparesis, GERD, pancreatitis, electrolyte abnormality, pneumonia CHEST x-ray, EKG, troponin, CBC, CMP, IV pain medication, IV antibiotics Patient has an elevated troponin and has end-stage renal disease due to patient having risk factors: The patient to the hospital. Discussed with patient and she agrees with plan. Critical care attestation.: If time is entered above; I have spent that time in minutes in the direct care of this critically ill patient, excluding procedure time. ED Disposition Clinical Impression: ESRD (end stage renal disease), ACS (acute coronary syndrome), Gastroparesis due to DM, Nausea, Hypertensive emergency Chest pain Qualifiers: Chest pain type: unspecified Qualified Code(s): R07.9 - Chest pain, unspecified Disposition: OP ADMIT IP TO THIS HOSP Is pt being admited?: Yes Does the pt Need Aspirin: No Condition: Stable Instructions: Diabetes Mellitus Type 2 in Adults (ED), Chest Pain (ED), Hypertension (ED) Referrals: PRIMARY CARE,MD [Primary Care Provider] - 3-5 Days
[2017-07-14] MEDS ORDERED: REGLAN ONE (11:38)
[2017-07-14 12:04] LABS: Basophils % (Auto) 0.6 % (0.0-1.8); Eosinophils % (Auto) 0.3 % (0.0-4.3); Hematocrit 25.3 % (30.3-42.9); Hemoglobin 8.1 gm/dl (10.1-14.3); Mean Corpuscular HGB Conc 32 % (30-34); Mean Corpuscular Hemoglobin 28 pg (28-32); Mean Corpuscular Volume 87 fl (79-97); Platelet Count 245 K/mm3 (140-440); Red Blood Count 2.91 M/mm3 (3.65-5.03); Red Cell Distribution Width 17.8 % (13.2-15.2); White Blood Count 6.5 K/mm3 (4.5-11.0)
[2017-07-14 12:06] LABS: BUN/Creatinine Ratio 3.86; Calcium 9.1 mg/dL (8.4-10.2); Chloride 95.4 mmol/L (98-107)
[2017-07-14 12:20] LABS: Alanine Aminotransferase 12 units/L (7-56); Albumin 3.8 g/dL (3.9-5); Alkaline Phosphatase 120 units/L (35-129); Total Protein 7.8 g/dL (6.3-8.2)
[2017-07-14 12:32] LABS: Bilirubin,Direct < 0.2 mg/dL (0-0.2)
[2017-07-14] MEDS ORDERED: BENADRYL PO ONE ×2 (12:58→14:24)
[2017-07-14] MEDS ORDERED: BABY ASPIRIN PO ONE (14:56)
[2017-07-14] MEDS ORDERED: VERSED IV NR (15:00)
--- NOTE | 2017-07-14 15:09 | History and Physical Report ---
History of Present Illness Chief complaint: My chest hurts History of present illness: 37 YO Female with ESRD on HD(M,W,F), COPD, Seizure DO, OA, DM, CHF, HTN presents to ED for evaluation. Pt states that she has experienced pain in her chest that began this morning. Pain is 10/10, constant, awoke her from sleep, substernal, nonradiating, not worsened with exertion, or relieved with rest. Pt denies fever, chills, palpitations, NVD, productive cough, unintentional weight loss, night sweats, noncompliance with dialysis. Pt pain symptoms out of proportion to exam findings and interview. Pt requests dilaudid and benadryl. Past History Past Medical History: arthritis, COPD, diabetes, ESRD, heart failure, hypertension, seizures Past Surgical History: cholecystectomy, Other (c section, tubal ligation. fistula right arm) Social history: single. denies: smoking, alcohol abuse, prescription drug abuse Family history: diabetes, hypertension Medications and Allergies Allergies Allergy/AdvReac Type Severity Reaction Status Date / Time lisinopril Allergy Shortness Verified 06/04/17 07:41 of Breath oxycodone HCl [From Percocet] Allergy Itching Verified 06/04/17 07:41 morphine AdvReac Anaphylaxis Verified 06/04/17 07:41 Home Medications Medication Instructions Recorded Confirmed Last Taken Type Promethazine [Phenergan TAB] 25 mg PO Q6H PRN 05/24/17 07/14/17 06/03/17 History SUMAtriptan SUCCINATE [Imitrex] 50 mg PO PRN PRN 05/26/17 07/14/17 06/03/17 History Metoclopramide [Reglan TAB] 10 mg PO ACHS #40 tablet 06/21/17 07/14/17 Unknown Rx Oxycodone HCl/Acetaminophen 1 each PO Q6HR PRN #20 tablet 06/21/17 07/14/17 Unknown Rx [Percocet 7.5/325 mg] Cyclobenzaprine HCl [Flexeril 5 MG 10 mg PO BID PRN #20 tablet 06/27/17 Unknown Rx TAB] Dicyclomine [Bentyl] 20 mg PO QID PRN #60 capsule 06/27/17 07/14/17 Unknown Rx Gabapentin [Neurontin] 100 mg PO TID #90 capsule 06/27/17 07/14/17 Unknown Rx Labetalol HCl 300 mg PO TID #90 tablet 06/27/17 07/14/17 Unknown Rx Losartan [Cozaar] 100 mg PO BID #60 tablet 06/27/17 07/14/17 Unknown Rx NIFEdipine XL [Procardia Xl] 90 mg PO QDAY #30 tablet 06/27/17 07/14/17 Unknown Rx Oxycodone HCl [Roxicodone TAB] 30 mg PO QID #20 tablet 06/27/17 07/14/17 Unknown Rx Pantoprazole [Protonix TAB] 40 mg PO BID #20 tablet 06/27/17 07/14/17 Unknown Rx cloNIDine [Catapres] 0.2 mg PO Q8H #30 tablet 06/27/17 07/14/17 Unknown Rx hydrALAZINE [Apresoline TAB] 100 mg PO TID #90 tab 06/27/17 07/14/17 Unknown Rx Active Meds: Active Medications Midazolam HCl (Versed) 1 mg IV ONCE NR Stop: 07/14/17 23:59 Review of Systems Constitutional: no weight loss, no weight gain, no fever, no chills, no sweats, no night sweats Ears, nose, mouth and throat: no ear pain, no ear discharge, no tinnitis, no decreased hearing, no nose pain, no nasal congestion, no nasal discharge Breasts: no change in shape, no swelling, no mass Cardiovascular: chest pain, edema, no orthopnea, no palpitations, no rapid/ irregular heart beat, no shortness of breath, no dyspnea on exertion, no paroxysmal nocturnal dyspnea Respiratory: no cough, no cough with sputum, no excessive sputum, no hemoptysis Gastrointestinal: no nausea, no vomiting, no diarrhea Genitourinary Female: no pelvic pain, no flank pain, no menorrhagia, no dysuria Rectal: no pain, no incontinence, no bleeding Musculoskeletal: no neck stiffness, no neck pain, no shooting arm pain, no arm numbness/tingling, no low back pain, no shooting leg pain Integumentary: no rash, no pruritis, no redness, no sores, no wounds, no jaundice Neurological: no transient paralysis, no paralysis, no weakness, no parathesias , no numbness, no tingling Psychiatric: no anxiety, no memory loss, no change in sleep habits, no sleep disturbances, no insomnia, no hypersomnia, no change in appetite Endocrine: no cold intolerance, no heat intolerance, no polyphagia, no excessive thirst, no polydipsia, no polyuria, no nocturia Hematologic/Lymphatic: no easy bruising, no easy bleeding Allergic/Immunologic: no urticaria, no allergic rhinitis, no wheezing Exam - Constitutional Vitals: Temp Pulse Resp BP Pulse Ox 98.4 F 90 20 132/86 100 07/14/17 11:58 07/14/17 14:58 07/14/17 14:59 07/14/17 14:58 07/14/17 11:58 General appearance: Present: mild distress, obese - EENT Eyes: Present: PERRL ENT: hearing intact, clear oral mucosa - Neck Neck: Present: supple, normal ROM - Respiratory Respiratory effort: normal Respiratory: bilateral: CTA - Cardiovascular Heart Sounds: Present: S1 & S2. Absent: rub, click - Extremities Extremities: pulses symmetrical, No edema Extremity abnormal: edema Peripheral Pulses: within normal limits - Abdominal General gastrointestinal: Present: soft, non-tender, non-distended, normal bowel sounds Female genitourinary: Present: normal - Integumentary Integumentary: Present: clear, warm, dry - Musculoskeletal Musculoskeletal: gait normal, strength equal bilaterally - Psychiatric Psychiatric: appropriate mood/affect, intact judgment & insight - Neurologic Neurologic: CNII-XII intact, moves all extremities Results - Labs CBC & Chem 7: 07/14/17 11:30 07/14/17 11:30 Labs: Abnormal lab results 07/14/17 07/14/17 07/14/17 Range/Units 10:56 11:30 11:30 RBC 2.91 L (3.65-5.03) M/mm3 Hgb 8.1 L (10.1-14.3) gm/dl Hct 25.3 L (30.3-42.9) % RDW 17.8 H (13.2-15.2) % Lymph % (Auto) 7.1 L (13.4-35.0) % Lymph # 0.5 L (1.2-5.4) K/mm3 Seg Neutrophils % 86.1 H (40.0-70.0) % Chloride 95.4 L (98-107) mmol/L Creatinine 4.4 H (0.7-1.2) mg/dL Glucose 150 H (65-100) mg/dL POC Glucose 155 H (70-105) Troponin T 0.285 H* (0.00-0.029) ng/mL Albumin (3.9-5) g/dL HDL Cholesterol 61 H (40-59) mg/dL 07/14/17 Range/Units 11:33 RBC (3.65-5.03) M/mm3 Hgb (10.1-14.3) gm/dl Hct (30.3-42.9) % RDW (13.2-15.2) % Lymph % (Auto) (13.4-35.0) % Lymph # (1.2-5.4) K/mm3 Seg Neutrophils % (40.0-70.0) % Chloride (98-107) mmol/L Creatinine (0.7-1.2) mg/dL Glucose (65-100) mg/dL POC Glucose (70-105) Troponin T (0.00-0.029) ng/mL Albumin 3.8 L (3.9-5) g/dL HDL Cholesterol (40-59) mg/dL Assessment and Plan - Patient Problems (1) Congestive heart failure Current Visit: No Status: Acute Qualifiers: Congestive heart failure type: combined Congestive heart failure chronicity : acute on chronic Qualified Code(s): I50.43 - Acute on chronic combined systolic (congestive) and diastolic (congestive) heart failure Plan to address problem: Acute on Chronic Systolic: fluid restriction, afterload reduction, remote telemetry, monitor uop q shift, dialysis as per renal service, continue medical management. (2) Accelerated hypertension Current Visit: No Status: Acute Plan to address problem: monitor bp q shift, resume current therapy, dialysis as per renal team (3) ESRD (end stage renal disease) Current Visit: Yes Status: Acute Plan to address problem: Nephrology consulted, dialysis as per renal team. (4) Atypical chest pain Current Visit: Yes Status: Acute Plan to address problem: CT chest, abdomen, serial physical exam. (5) DVT prophylaxis Current Visit: No Status: Acute
--- NOTE | 2017-07-14 15:53 | XRay Report ---
AP CHEST: HISTORY: chest pain Mild cardiomegaly and pulmonary venous congestion appear stable since 06/21/17. The lungs are clear. No evidence for pneumonia, CHF or pneumothorax. Left [id number] is in good position. IMPRESSION: Stable cardiomegaly and pulmonary venous congestion.
[2017-07-14] MEDS ORDERED: MILK OF MAGNESIA PO PRN (16:50)
[2017-07-14] MEDS ORDERED: ZOFRAN IV PRN (16:50)
[2017-07-14] MEDS ORDERED: DULCOLAX PR PRN (16:50)
[2017-07-14] MEDS ORDERED: TYLENOL PO PRN (16:50)
[2017-07-14] MEDS ORDERED: PROVENTIL IH PRN (16:50)
[2017-07-14] MEDS ORDERED: NACL ONE (17:52)
[2017-07-14] MEDS ORDERED: NON-FORMULARY (Oxycodone Hcl/Acetaminophen [Percocet 7.5/325 Mg] 1 EACH) PO PRN (18:33)
[2017-07-14] MEDS ORDERED: IMITREX PO PRN (18:33)
[2017-07-14] MEDS ORDERED: CYCLOBENZAPRINE HCL 10 MG PO PRN (18:33)
[2017-07-14] MEDS ORDERED: PHENERGAN PO PRN (18:33)
[2017-07-14] MEDS: CATAPRES PO SCH (18:48)
[2017-07-14] MEDS ORDERED: PERCOCET 5/325 PO PRN (18:49)
[2017-07-14] MEDS: PERCOCET 5/325 PO PRN (19:49)
[2017-07-14] MEDS: NORMODYNE PO SCH (19:50)
[2017-07-14] MEDS: NEURONTIN PO SCH (19:51)
[2017-07-14] MEDS: APRESOLINE PO SCH (19:51)
[2017-07-14] MEDS ORDERED: NON-FORMULARY (Labetalol Hcl [Labetalol Hcl] 300 MG) PO SCH (20:00)
[2017-07-14] MEDS: PROTONIX PO SCH (21:44)
[2017-07-14] MEDS: REGLAN PO SCH (21:44)
[2017-07-14] MEDS: COZAAR PO SCH (21:44)
[2017-07-14] MEDS: FLEXERIL PO PRN (23:59)
[2017-07-14] MEDS: BENTYL PO PRN (23:59)
[2017-07-15] MEDS: PERCOCET 5/325 PO PRN ×2 (05:17→20:41)
[2017-07-15] MEDS: CATAPRES PO SCH ×2 (05:19→15:10)
[2017-07-15] MEDS: PROCARDIA XL PO SCH ×2 (08:09→10:00)
[2017-07-15] MEDS: REGLAN PO SCH ×4 (08:09→21:46)
[2017-07-15] MEDS: COZAAR PO SCH ×3 (08:10→21:46)
[2017-07-15] MEDS: NORMODYNE PO SCH ×3 (08:10→20:40)
[2017-07-15] MEDS: APRESOLINE PO SCH ×3 (08:12→20:41)
[2017-07-15] MEDS: PROTONIX PO SCH ×3 (08:13→21:46)
[2017-07-15] MEDS: NEURONTIN PO SCH ×3 (08:13→20:41)
--- NOTE | 2017-07-15 10:37 | Cat Scan Report ---
CT scan of abdomen and pelvis without IV contrast: Compared to 06/25/17. Findings: Minimal bilateral pleural thickening/pleural effusion. Small pericardial effusion. Basilar atelectasis bilaterally. Enlarged liver measures 23 cm craniocaudad. Patient status post cholecystectomy. Normal pancreas and spleen. Normal adrenals. Bilateral small kidneys. Right kidney measures 8.2 cm and the left kidney measures 8.3 cm vertically. This timing 1 mm nonobstructing calculus noted right and left kidney. Normal bladder. No free intraperitoneal fluid or air or adenopathy. Normal bladder. Gaseous colon with moderate volume stool in colon. No bowel distention or obstruction. Impression: Enlarged liver. Tiny nonobstructing calculus right and left kidney. Small kidneys.
--- NOTE | 2017-07-15 10:49 | Cat Scan Report ---
CT scan of chest without IV contrast: History: Abdominal pain. Findings: No endobronchial or mediastinal mass. No mediastinal, hilar or axillary adenopathy. Pericardial effusion with thickness of the effusion at 1.03 cm. Bilateral pleural effusions/pleural thickening. Faint scattered groundglass alveolar densities bilaterally. Predominantly right lung. Right basilar atelectasis/pneumonitis. Left basilar atelectasis. Impression: Pericardial effusion. Groundglass lung bilaterally probably from early interstitial fibrosis are pneumonitis among other causes. Right basilar atelectasis or pneumonitis.
[2017-07-15] MEDS ORDERED: NACL 0.9% 100 ML IV PRN (11:02)
--- NOTE | 2017-07-15 11:20 | Consultation ---
History of Present Illness - Reason for Consult Consult date: 07/15/17 end stage renal disease, accelerated hypertension Requesting physician: ANDREY ANDUJAR - History of Present Illness 37 years old female with ESRD on HD(M,W,F) at [facility] [place], Seizure disorder, DM I, HTN, pulmonary hypertension, gastroparesis with frequent hospitalization with gastroparesis exacerbation presents to ED for evaluation with a compliant of chest pain x 1 day duration. Pain is 10/10, constant, not worsened with exertion, or relieved with rest. Her last dialysis was on Tuesday. Has AVF for dialysis. Past History Past Medical History: arthritis, COPD, diabetes, ESRD, heart failure, hypertension, seizures Past Surgical History: cholecystectomy, Other (c section, tubal ligation. fistula right arm) Social history: single. denies: smoking, alcohol abuse, prescription drug abuse Family history: diabetes, hypertension Medications and Allergies Allergies Allergy/AdvReac Type Severity Reaction Status Date / Time lisinopril Allergy Shortness Verified 06/04/17 07:41 of Breath oxycodone HCl [From Percocet] Allergy Itching Verified 06/04/17 07:41 morphine AdvReac Anaphylaxis Verified 06/04/17 07:41 Home Medications Medication Instructions Recorded Confirmed Last Taken Type Promethazine [Phenergan TAB] 25 mg PO Q6H PRN 05/24/17 07/14/17 06/03/17 History SUMAtriptan SUCCINATE [Imitrex] 50 mg PO PRN PRN 05/26/17 07/14/17 06/03/17 History Metoclopramide [Reglan TAB] 10 mg PO ACHS #40 tablet 06/21/17 07/14/17 Unknown Rx Oxycodone HCl/Acetaminophen 1 each PO Q6HR PRN #20 tablet 06/21/17 07/14/17 Unknown Rx [Percocet 7.5/325 mg] Cyclobenzaprine HCl [Flexeril 5 MG 10 mg PO BID PRN #20 tablet 06/27/17 Unknown Rx TAB] Dicyclomine [Bentyl] 20 mg PO QID PRN #60 capsule 06/27/17 07/14/17 Unknown Rx Gabapentin [Neurontin] 100 mg PO TID #90 capsule 06/27/17 07/14/17 Unknown Rx Labetalol HCl 300 mg PO TID #90 tablet 06/27/17 07/14/17 Unknown Rx Losartan [Cozaar] 100 mg PO BID #60 tablet 06/27/17 07/14/17 Unknown Rx NIFEdipine XL [Procardia Xl] 90 mg PO QDAY #30 tablet 06/27/17 07/14/17 Unknown Rx Oxycodone HCl [Roxicodone TAB] 30 mg PO QID #20 tablet 06/27/17 07/14/17 Unknown Rx Pantoprazole [Protonix TAB] 40 mg PO BID #20 tablet 06/27/17 07/14/17 Unknown Rx cloNIDine [Catapres] 0.2 mg PO Q8H #30 tablet 06/27/17 07/14/17 Unknown Rx hydrALAZINE [Apresoline TAB] 100 mg PO TID #90 tab 06/27/17 07/14/17 Unknown Rx Active Meds: Active Medications Acetaminophen (Tylenol) 650 mg PO Q4H PRN PRN Reason: Pain MILD(1-3)/Fever >100.5/CRUZ Albuterol (Proventil) 2.5 mg IH Q4HRT PRN PRN Reason: Shortness Of Breath Bisacodyl (Dulcolax) 10 mg AK QDAY PRN PRN Reason: Constipation unrelieved by MOM Clonidine HCl (Catapres) 0.2 mg PO Q8HR [facility] Last Admin: 07/15/17 05:19 Dose: 0.2 mg Cyclobenzaprine HCl (Flexeril) 10 mg PO BID PRN PRN Reason: Muscle Spasm Last Admin: 07/14/17 23:59 Dose: 10 mg Dicyclomine HCl (Bentyl) 20 mg PO QID PRN PRN Reason: Stomach Pain Last Admin: 07/14/17 23:59 Dose: 20 mg Gabapentin (Neurontin) 100 mg PO TID [facility] Last Admin: 07/15/17 08:13 Dose: 100 mg Hydralazine HCl (Apresoline) 100 mg PO TID [facility] Last Admin: 07/15/17 08:12 Dose: 100 mg Sodium Chloride (Nacl 0.9%) 100 mls @ 999 mls/hr IV CELENA PRN PRN Reason: Hypotension Labetalol HCl (Normodyne) 300 mg PO TID [facility] Last Admin: 07/15/17 08:10 Dose: 300 mg Losartan Potassium (Cozaar) 100 mg PO BID [facility] Last Admin: 07/15/17 08:10 Dose: 100 mg Magnesium Hydroxide (Milk Of Magnesia) 30 ml PO Q4H PRN PRN Reason: Constipation Metoclopramide HCl (Reglan) 5 mg PO ACHS [facility] Nifedipine (Procardia Xl) 90 mg PO QDAY [facility] Last Admin: 07/15/17 08:09 Dose: 90 mg Ondansetron HCl (Zofran) 4 mg IV Q8H PRN PRN Reason: N/V unrelieved by Reglan Last Admin: 07/15/17 08:12 Dose: 4 mg Oxycodone/Acetaminophen (Percocet 5/325) 1.5 tab PO Q6H PRN PRN Reason: Pain Last Admin: 07/15/17 05:17 Dose: 1.5 tab Pantoprazole Sodium (Protonix) 40 mg PO BID [facility] Last Admin: 07/15/17 08:13 Dose: 40 mg Promethazine HCl (Phenergan) 25 mg PO Q6H PRN PRN Reason: Nausea Sumatriptan Succinate (Imitrex) 50 mg PO PRN PRN PRN Reason: Migraine Headache Review of Systems All systems: negative Constitutional: weight loss, fatigue, poor appetite, chronic pain, no weight gain, no fever, no chills Ears, nose, mouth and throat: no nasal congestion, no nasal discharge, no sinus pressure Breasts: deferred Cardiovascular: chest pain, palpitations, shortness of breath, no orthopnea Respiratory: cough, shortness of breath, no snoring Gastrointestinal: nausea, vomiting, no diarrhea, no constipation Genitourinary Female: no pelvic pain, no flank pain Rectal: no pain, no incontinence Musculoskeletal: no neck stiffness, no neck pain Integumentary: no rash, no pruritis Neurological: no paralysis, no weakness Psychiatric: no memory loss, no change in sleep habits, no sleep disturbances Endocrine: no polyuria, no nocturia Hematologic/Lymphatic: no easy bruising, no easy bleeding Exam - Vital Signs Vital signs: Vital Signs Temp Pulse Resp BP Pulse Ox 98.1 F 90 24 216/99 84 07/14/17 10:45 07/14/17 10:45 07/14/17 10:45 07/14/17 10:45 07/14/17 10:45 - General Appearance General appearance: well-developed, well-nourished, appears stated age, chronically ill, fatigue EENT: ATNC, PERRL, mucous membranes moist Neck: Present: neck supple, trachea midline. Absent: JVD/HJR, Masses Respiratory: Decreased Breath Sounds, Other (no wheezing ) Heart: regular, normal heart rate, S1S2, no murmurs Gastrointestinal: Present: normoactive bowel sounds. Absent: tenderness Integumentary: no rash, warm and dry Neurologic: no focal deficit, alert and oriented x3, gait normal, strength 5/5 Musculoskeletal: Absent: deformities, joint swelling Psychiatric: mood/affect appropriate, cooperative Results - Lab Results 07/14/17 11:30 07/14/17 11:30 Most recent lab results Calcium 9.1 mg/dL (8.4-10.2) 07/14/17 11:30 Assessment and Plan (1) End stage renal disease/ dialysis dependence Current Visit: Yes Status: Chronic Plan to address problem: HD scheduled for today Will plan on 4-5 L fluid removal as hemodynamics allow (2) Chest pain Current Visit: Yes Status: Acute Plan to address problem: Follow up on cardio recommendations Serial Kristi/EKG (3) Fluid overload Current Visit: Yes Status: Acute Plan to address problem: WIll do HD today and re evaluate in am for more UF (4) Malignant hypertension Current Visit: Yes Status: Acute Plan to address problem: Resume home BP medications Fluid removal with her dialysis also should help with her BP (5) Anemia of ESRD Current Visit: Yes Status: Acute Plan to address problem: Epogen on dialysis
--- NOTE | 2017-07-15 21:30 | Progress Note ---
Assessment and Plan Assessment and plan: ESRD on HD HTN CHF Fluid overload Diabetes/gastroparesis Seizure disorder DVT prophylaxis Hospitalist Physical - Constitutional Vitals: Temp Pulse Resp BP Pulse Ox 98.7 F 82 18 143/66 96 07/15/17 20:32 07/15/17 20:32 07/15/17 20:32 07/15/17 20:32 07/15/17 20:32 General appearance: Present: mild distress, obese Results - Labs CBC & Chem 7: 07/14/17 11:30 07/14/17 11:30 Labs: Laboratory Last Values WBC 6.5 K/mm3 (4.5-11.0) 07/14/17 11:30 RBC 2.91 M/mm3 (3.65-5.03) L 07/14/17 11:30 Hgb 8.1 gm/dl (10.1-14.3) L 07/14/17 11:30 Hct 25.3 % (30.3-42.9) L 07/14/17 11:30 MCV 87 fl (79-97) 07/14/17 11:30 MCH 28 pg (28-32) 07/14/17 11:30 MCHC 32 % (30-34) 07/14/17 11:30 RDW 17.8 % (13.2-15.2) H 07/14/17 11:30 Plt Count 245 K/mm3 (140-440) 07/14/17 11:30 Lymph % (Auto) 7.1 % (13.4-35.0) L 07/14/17 11:30 Real % (Auto) 5.9 % (0.0-7.3) 07/14/17 11:30 Eos % (Auto) 0.3 % (0.0-4.3) 07/14/17 11:30 Baso % (Auto) 0.6 % (0.0-1.8) 07/14/17 11:30 Lymph # 0.5 K/mm3 (1.2-5.4) L 07/14/17 11:30 Real # 0.4 K/mm3 (0.0-0.8) 07/14/17 11:30 Eos # 0.0 K/mm3 (0.0-0.4) 07/14/17 11:30 Baso # 0.0 K/mm3 (0.0-0.1) 07/14/17 11:30 Seg Neutrophils % 86.1 % (40.0-70.0) H 07/14/17 11:30 Seg Neutrophils # 5.6 K/mm3 (1.8-7.7) 07/14/17 11:30 Sodium 137 mmol/L (137-145) 07/14/17 11:30 Potassium 4.0 mmol/L (3.6-5.0) 07/14/17 11:30 Chloride 95.4 mmol/L (98-107) L 07/14/17 11:30 Carbon Dioxide 30 mmol/L (22-30) 07/14/17 11:30 Anion Gap 16 mmol/L 07/14/17 11:30 BUN 17 mg/dL (7-17) 07/14/17 11:30 Creatinine 4.4 mg/dL (0.7-1.2) H 07/14/17 11:30 Estimated GFR 14 ml/min 07/14/17 11:30 BUN/Creatinine Ratio 3.86 % 07/14/17 11:30 Glucose 150 mg/dL (65-100) H 07/14/17 11:30 POC Glucose 155 (70-105) H 07/14/17 10:56 Calcium 9.1 mg/dL (8.4-10.2) 07/14/17 11:30 Total Bilirubin 0.50 mg/dL (0.1-1.2) 07/14/17 11:33 Direct Bilirubin < 0.2 mg/dL (0-0.2) 07/14/17 11:33 AST 18 units/L (5-40) 07/14/17 11:33 ALT 12 units/L (7-56) 07/14/17 11:33 Alkaline Phosphatase 120 units/L (35-129) 07/14/17 11:33 Troponin T 0.258 ng/mL (0.00-0.029) H* 07/14/17 14:45 Total Protein 7.8 g/dL (6.3-8.2) 07/14/17 11:33 Albumin 3.8 g/dL (3.9-5) L 07/14/17 11:33 Albumin/Globulin Ratio 1.0 % 07/14/17 11:33 Triglycerides 95 mg/dL (2-149) 07/14/17 11:30 Cholesterol 137 mg/dL (50-199) 07/14/17 11:30 LDL Cholesterol Direct 57 mg/dL (50-130) 07/14/17 11:30 HDL Cholesterol 61 mg/dL (40-59) H 07/14/17 11:30 Cholesterol/HDL Ratio 2.24 % 07/14/17 11:30
[2017-07-16] MEDS: FLEXERIL PO PRN (01:28)
[2017-07-16] MEDS: BENTYL PO PRN (01:28)
[2017-07-16] MEDS: REGLAN PO SCH ×3 (08:06→16:56)
[2017-07-16] MEDS: NEURONTIN PO SCH ×2 (08:30→14:23)
[2017-07-16] MEDS: NORMODYNE PO SCH ×2 (08:30→14:22)
[2017-07-16] MEDS: APRESOLINE PO SCH ×2 (08:35→14:23)
[2017-07-16] MEDS: PROTONIX PO SCH (10:53)
[2017-07-16] MEDS: COZAAR PO SCH (10:54)
[2017-07-16] MEDS: PROCARDIA XL PO SCH (10:55)
--- NOTE | 2017-07-16 13:34 | Progress Note ---
Assessment and Plan - Patient Problems (1) ESRD (end stage renal disease) Current Visit: Yes Status: Acute Plan to address problem: cont HD on MWF schedule (2) Chest pain Current Visit: Yes Status: Acute Qualifiers: Chest pain type: unspecified Ischemic chest pain type: I Qualified Code(s ): R07.9 - Chest pain, unspecified Plan to address problem: Follow up on cardio recommendations Serial Kristi/EKG (3) Fluid overload Current Visit: No Status: Acute Qualifiers: Hypervolemia type: H Plan to address problem: improved with HD (4) Accelerated hypertension Current Visit: No Status: Acute Plan to address problem: Resume home BP medications will increase fluid removal with HD as tolerated (5) Anemia in chronic kidney disease Current Visit: No Status: Acute Qualifiers: Chronic kidney disease stage: unspecified stage Qualified Code(s): N18.9 - Chronic kidney disease, unspecified; D63.1 - Anemia in chronic kidney disease Plan to address problem: Epogen on dialysis Subjective Date of service: 07/16/17 Principal diagnosis: ESRD Interval history: Patient awake, alert, in NAD Objective - Vital Signs Vital signs: Vital Signs - 12hr 07/16/17 07/16/17 07/16/17 07:40 08:30 10:00 Temperature 98.3 F Pulse Rate 73 73 Pulse Rate [ 73 From Monitor] Pulse Rate [ 72 Right Radial] Respiratory 18 18 Rate Blood Pressure 175/78 175/78 O2 Sat by Pulse 95 100 Oximetry 07/16/17 10:54 Temperature Pulse Rate 74 Pulse Rate [ From Monitor] Pulse Rate [ Right Radial] Respiratory Rate Blood Pressure 175/78 O2 Sat by Pulse Oximetry - General Appearance General appearance: well-developed, well-nourished, appears stated age EENT: ATNC, PERRL, mucous membranes moist Neck: no JVD Respiratory: Present: Clear to Ascultation Cardiology: regular, S1S2 Gastrointestinal: normal, normoactive bowel sounds Integumentary: no rash, other (no edema ) Neurologic: no focal deficit, alert and oriented x3, strength 5/5, CN 3-12 intact Psychiatric: mood/affect appropriate, cooperative - Lab 07/14/17 11:30 07/14/17 11:30 Most recent lab results Calcium 9.1 mg/dL (8.4-10.2) 07/14/17 11:30
[2017-07-16] MEDS ORDERED: FLUSH HEPARIN IV ONE (15:27)
[2017-07-16] MEDS ORDERED: TRIPLE ANTIBIOTIC TP ONE (15:28)
[2017-07-16 16:03] VITALS: BP 128/60
--- NOTE | 2017-07-16 16:08 | Discharge Summary ---
Providers - Providers Date of Admission: 07/14/17 16:50 Date of discharge: 07/16/17 Attending physician: KIA CERDA 07/14/17 18:33 Consult to Physician [CONS] Routine Consulting Provider: TERRI MORAN Reason For Exam: esrd Place consult to:: dr. moran Notified:: answering service Phone number called:: . Was contact made?: Yes If yes, spoke with:: anatoliy Time called:: 09:28 Primary care physician: MARIBEL VIGIL MD Hospitalization Condition: Stable Disposition: DC-01 TO HOME OR SELFCARE Time spent for discharge: 35 min Exam - Constitutional Vitals: Temp Pulse Resp BP Pulse Ox 98.3 F 74 18 175/78 100 07/16/17 07:40 07/16/17 10:54 07/16/17 10:00 07/16/17 10:54 07/16/17 10:00 Plan Activity: advance as tolerated Diet: low cholesterol, low salt, renal Additional Instructions: follow up with your speed operator and resume outpatient dialysis Follow up with: PRIMARY CAREMD [Primary Care Provider] - 3-5 Days
== END 2017-07-16 17:01 | disposition home health service (06) | DRG 291 ==
LOC: ED 10:39 → 3A 16:50
PROVIDERS: ADMIT Internal Medicine; ATTEND Internal Medicine
PROC: 5A1D00Z (ICD-10-PCS; principal; 2017-07-14)
DX: I13.2 Hypertensive heart and chronic kidney disease with heart failure and with stage 5 chronic kidney disease, or end stage renal disease (principal); N18.6 End stage renal disease; I50.23 Acute on chronic systolic (congestive) heart failure; J96.20 Acute and chronic respiratory failure, unspecified whether with hypoxia or hypercapnia; I24.9 Acute ischemic heart disease, unspecified; I16.1 Hypertensive emergency; R07.89 Other chest pain; E11.9 Type 2 diabetes mellitus without complications; M19.90 Unspecified osteoarthritis, unspecified site; J44.9 Chronic obstructive pulmonary disease, unspecified; E11.43 Type 2 diabetes mellitus with diabetic autonomic (poly)neuropathy; K31.84 Gastroparesis; E87.70 Fluid overload, unspecified; D63.1 Anemia in chronic kidney disease; G40.909 Epilepsy, unspecified, not intractable, without status epilepticus; I27.2 Other secondary pulmonary hypertension; Z79.899 Other long term (current) drug therapy; Z88.6 Allergy status to analgesic agent; Z88.8 Allergy status to other drugs, medicaments and biological substances; Z90.49 Acquired absence of other specified parts of digestive tract; Z98.51 Tubal ligation status; Z98.891 History of uterine scar from previous surgery; Z83.3 Family history of diabetes mellitus; Z82.49 Family history of ischemic heart disease and other diseases of the circulatory system; Z99.2 Dependence on renal dialysis
CPT/HCPCS: 36415; 71010; 71250; 74176; 80048; 80061; 80074; 82962; 84484; 85025; 93005; 93010; 94760; 96374; 96375; 96376; A6250; J1642; J2250; J2405; J2765; J3010; Q0169

== ENCOUNTER 2017-07-28 16:40 | Inpatient (IN) | payer MEDICARE ==
[2017-07-28] MEDS ORDERED: SUBLIMAZE IV ONE (18:39)
[2017-07-28 19:43] LABS: Basophils % (Auto) 0.6 % (0.0-1.8); Eosinophils % (Auto) 0.3 % (0.0-4.3); Hematocrit 26.5 % (30.3-42.9); Hemoglobin 8.6 gm/dl (10.1-14.3); Mean Corpuscular HGB Conc 33 % (30-34); Mean Corpuscular Hemoglobin 28 pg (28-32); Mean Corpuscular Volume 85 fl (79-97); Platelet Count 331 K/mm3 (140-440); Red Blood Count 3.12 M/mm3 (3.65-5.03); Red Cell Distribution Width 18.4 % (13.2-15.2); White Blood Count 8.9 K/mm3 (4.5-11.0)
[2017-07-28 19:59] LABS: Albumin 3.5 g/dL (3.9-5); Albumin/Globulin Ratio 0.9 %; Bilirubin,Total 0.4 mg/dL (0.1-1.2); Calcium 9.4 mg/dL (8.4-10.2); Total Protein 7.5 g/dL (6.3-8.2)
[2017-07-28 20:04] LABS: Potassium 6.1 mmol/L (3.6-5.0)
[2017-07-28] MEDS ORDERED: PROVENTIL IH ONE ×2 (20:28→23:30)
[2017-07-28] MEDS ORDERED: CALCIUM GLUCONATE 2,000 MG in NACL 0.9% 100 ML IV ONE (21:00)
[2017-07-28] MEDS ORDERED: D50W (25GM) Syringe IV ONE (21:32)
--- NOTE | 2017-07-28 21:39 | Emergency Department Report ---
ED General Adult HPI - General Chief complaint: Dyspnea/Respdistress Stated complaint: STOMACH/CHEST/BACK/PAIN Time Seen by Provider: 07/28/17 18:17 Source: patient, EMS Mode of arrival: Stretcher Limitations: No Limitations - History of Present Illness Initial comments: Patient is a 37-year-old female past medical history of end-stage renal disease who gets dialysis Tuesday who is presenting with shortness of breath and back pain. Patient states that she got dialysis on Tuesday but she only got a portion of the dialysis prescription she was hypotensive. Patient states that her pain is a 10 out of 10 located in her back. She says her back pain radiates to her stomach. It is an achy type of pain nothing makes it better or worse. It is constant. Patient's sat is 93% on 4 L of nasal cannula. Severity scale (0 -10): 10 - Related Data Home Medications Medication Instructions Recorded Confirmed Last Taken Promethazine [Phenergan TAB] 25 mg PO Q6H PRN 05/24/17 07/14/17 06/03/17 SUMAtriptan SUCCINATE [Imitrex] 50 mg PO PRN PRN 05/26/17 07/14/17 06/03/17 Previous Rx's Medication Instructions Recorded Last Taken Type Metoclopramide [Reglan TAB] 10 mg PO ACHS #40 tablet 06/21/17 Unknown Rx Oxycodone HCl/Acetaminophen 1 each PO Q6HR PRN #20 tablet 06/21/17 Unknown Rx [Percocet 7.5/325 mg] Cyclobenzaprine HCl [Flexeril 5 MG 10 mg PO BID PRN #20 tablet 06/27/17 Unknown Rx TAB] Dicyclomine [Bentyl] 20 mg PO QID PRN #60 capsule 06/27/17 Unknown Rx Gabapentin [Neurontin] 100 mg PO TID #90 capsule 06/27/17 Unknown Rx Labetalol HCl 300 mg PO TID #90 tablet 06/27/17 Unknown Rx Losartan [Cozaar] 100 mg PO BID #60 tablet 06/27/17 Unknown Rx NIFEdipine XL [Procardia Xl] 90 mg PO QDAY #30 tablet 06/27/17 Unknown Rx Pantoprazole [Protonix TAB] 40 mg PO BID #20 tablet 06/27/17 Unknown Rx hydrALAZINE [Apresoline TAB] 100 mg PO TID #90 tab 06/27/17 Unknown Rx Allergies Allergy/AdvReac Type Severity Reaction Status Date / Time lisinopril Allergy Shortness Verified 06/04/17 07:41 of Breath oxycodone HCl [From Percocet] Allergy Itching Verified 06/04/17 07:41 morphine AdvReac Anaphylaxis Verified 06/04/17 07:41 ED Review of Systems ROS: Stated complaint: STOMACH/CHEST/BACK/PAIN Other details as noted in HPI Constitutional: denies: chills, fever Eyes: denies: eye pain, eye discharge, vision change ENT: denies: ear pain, throat pain Respiratory: shortness of breath. denies: cough, wheezing Cardiovascular: chest pain. denies: palpitations Endocrine: no symptoms reported Gastrointestinal: abdominal pain. denies: nausea, diarrhea Genitourinary: denies: urgency, dysuria, discharge Musculoskeletal: back pain. denies: joint swelling, arthralgia Skin: denies: rash, lesions Neurological: denies: headache, weakness, paresthesias Psychiatric: denies: anxiety, depression Hematological/Lymphatic: denies: easy bleeding, easy bruising ED Past Medical Hx - Past Medical History Previous Medical History?: Yes Hx Hypertension: Yes Hx Heart Attack/AMI: No Hx Congestive Heart Failure: Yes Hx Diabetes: Yes Hx Pulmonary Embolism: No Hx Liver Disease: No Hx Renal Disease: Yes (Dialysis MWF) Hx Arthritis: Yes Hx Headaches / Migraines: No Hx Seizures: Yes Hx Kidney Stones: No Hx Psychiatric Treatment: No Hx Asthma: Yes (PATIENT IS ASTHMATIC) Hx COPD: Yes Hx HIV: No Additional medical history: gastroparesis. Recent infection to right great toe , hospitalized at [facility]. - Surgical History Past Surgical History?: Yes Hx Cholecystectomy: Yes (18 years ago) Additional Surgical History: c section, tubal ligation. fistula right arm - Social History Smoking Status: Never Smoker Substance Use Type: None - Medications Home Medications: Home Medications Medication Instructions Recorded Confirmed Last Taken Type Promethazine [Phenergan TAB] 25 mg PO Q6H PRN 05/24/17 07/14/17 06/03/17 History SUMAtriptan SUCCINATE [Imitrex] 50 mg PO PRN PRN 05/26/17 07/14/17 06/03/17 History Metoclopramide [Reglan TAB] 10 mg PO ACHS #40 tablet 06/21/17 07/14/17 Unknown Rx Oxycodone HCl/Acetaminophen 1 each PO Q6HR PRN #20 tablet 06/21/17 07/14/17 Unknown Rx [Percocet 7.5/325 mg] Cyclobenzaprine HCl [Flexeril 5 MG 10 mg PO BID PRN #20 tablet 06/27/17 Unknown Rx TAB] Dicyclomine [Bentyl] 20 mg PO QID PRN #60 capsule 06/27/17 07/14/17 Unknown Rx Gabapentin [Neurontin] 100 mg PO TID #90 capsule 06/27/17 07/14/17 Unknown Rx Labetalol HCl 300 mg PO TID #90 tablet 06/27/17 07/14/17 Unknown Rx Losartan [Cozaar] 100 mg PO BID #60 tablet 06/27/17 07/14/17 Unknown Rx NIFEdipine XL [Procardia Xl] 90 mg PO QDAY #30 tablet 06/27/17 07/14/17 Unknown Rx Pantoprazole [Protonix TAB] 40 mg PO BID #20 tablet 06/27/17 07/14/17 Unknown Rx hydrALAZINE [Apresoline TAB] 100 mg PO TID #90 tab 06/27/17 07/14/17 Unknown Rx ED Physical Exam - General Limitations: No Limitations General appearance: alert, in distress - Head Head exam: Present: atraumatic, normocephalic - Eye Eye exam: Present: normal appearance - ENT ENT exam: Present: mucous membranes moist - Neck Neck exam: Present: normal inspection - Respiratory Respiratory exam: Present: rhonchi. Absent: respiratory distress - Cardiovascular Cardiovascular Exam: Present: regular rate, normal rhythm. Absent: systolic murmur, diastolic murmur, rubs, gallop - GI/Abdominal GI/Abdominal exam: Present: soft, normal bowel sounds - Extremities Exam Extremities exam: Present: other (right AV fistula with thrill ) - Back Exam Back exam: Present: normal inspection - Neurological Exam Neurological exam: Present: alert, oriented X3 - Psychiatric Psychiatric exam: Present: normal affect, normal mood - Skin Skin exam: Present: warm, dry, intact, normal color. Absent: rash ED Course Vital Signs 07/28/17 07/28/17 07/28/17 17:15 17:25 17:42 Temperature Pulse Rate 84 84 Pulse Rate [ Bilateral] Respiratory 16 12 Rate Respiratory Rate [Bilateral ] Blood Pressure Blood Pressure [Left] O2 Sat by Pulse 86 Oximetry 07/28/17 07/28/17 07/28/17 17:51 18:00 19:00 Temperature 97.7 F 97.7 F 97.7 F Pulse Rate 84 83 82 Pulse Rate [ Bilateral] Respiratory 12 20 18 Rate Respiratory Rate [Bilateral ] Blood Pressure 182/85 149/59 Blood Pressure 182/85 167/82 [Left] O2 Sat by Pulse 86 95 93 Oximetry 07/28/17 07/28/17 07/28/17 19:09 20:00 21:00 Temperature Pulse Rate 80 77 Pulse Rate [ Bilateral] Respiratory 10 L 15 15 Rate Respiratory Rate [Bilateral ] Blood Pressure 149/59 173/83 181/86 Blood Pressure [Left] O2 Sat by Pulse 94 95 98 Oximetry 07/28/17 07/28/17 07/28/17 22:00 23:00 23:02 Temperature Pulse Rate 72 87 Pulse Rate [ 86 Bilateral] Respiratory 13 11 L Rate Respiratory 18 Rate [Bilateral ] Blood Pressure 157/79 159/65 Blood Pressure [Left] O2 Sat by Pulse 99 96 Oximetry - Consultations Consultation #1: 07/29/17 00:25 Consulted Systems Test Engineer cold reduction roller Dr. Cote. He says patient does not need emergent dialysis and will get dialysis tomorrow. I will give patient medical treatment for her hyperkalemia. ED Medical Decision Making - Lab Data Result diagrams: 07/28/17 19:25 07/28/17 19:25 Lab Results 07/28/17 07/28/17 Range/Units 19:25 19:25 WBC 8.9 (4.5-11.0) K/mm3 RBC 3.12 L (3.65-5.03) M/mm3 Hgb 8.6 L (10.1-14.3) gm/dl Hct 26.5 L (30.3-42.9) % MCV 85 (79-97) fl MCH 28 (28-32) pg MCHC 33 (30-34) % RDW 18.4 H (13.2-15.2) % Plt Count 331 (140-440) K/mm3 Lymph % (Auto) 9.7 L (13.4-35.0) % [place] % (Auto) 5.7 (0.0-7.3) % Eos % (Auto) 0.3 (0.0-4.3) % Baso % (Auto) 0.6 (0.0-1.8) % Lymph # 0.9 L (1.2-5.4) K/mm3 [place] # 0.5 (0.0-0.8) K/mm3 Eos # 0.0 (0.0-0.4) K/mm3 Baso # 0.1 (0.0-0.1) K/mm3 Seg Neutrophils % 83.7 H (40.0-70.0) % Seg Neutrophils # 7.5 (1.8-7.7) K/mm3 Sodium 135 L (137-145) mmol/L Potassium 6.1 H* (3.6-5.0) mmol/L Chloride 92.0 L (98-107) mmol/L Carbon Dioxide 28 (22-30) mmol/L Anion Gap 21 mmol/L BUN 56 H (7-17) mg/dL Creatinine 7.8 H (0.7-1.2) mg/dL Estimated GFR 7 ml/min BUN/Creatinine Ratio 7 % Glucose 100 (65-100) mg/dL Calcium 9.4 (8.4-10.2) mg/dL Total Bilirubin 0.40 (0.1-1.2) mg/dL AST 40 (5-40) units/L ALT 45 (7-56) units/L Alkaline Phosphatase 164 H (35-129) units/L Troponin T 0.257 H* (0.00-0.029) ng/mL Total Protein 7.5 (6.3-8.2) g/dL Albumin 3.5 L (3.9-5) g/dL Albumin/Globulin Ratio 0.9 % Triglycerides 102 (2-149) mg/dL Cholesterol 132 (50-199) mg/dL LDL Cholesterol Direct 61 (50-130) mg/dL HDL Cholesterol 51 (40-59) mg/dL Cholesterol/HDL Ratio 2.58 % Lipase 30 (13-60) units/L - EKG Data -: EKG Interpreted by Al - EKG Data 07/28/17 21:44 EKG shows normal sinus rhythm right axis deviation no ST segment elevation or T- wave inversion. - Radiology Data Radiology results: image reviewed Chest x-ray: Shows cardiomegaly - Medical Decision Making Chief medical diagnosis: Hyperkalemia Differential medical diagnosis: Fluid overload, pneumonia, acute coronary syndrome CBC, CMP, chest x-ray, albuterol, iv dextrose, iv insulin, Kayexalate and iv calcium gluconate Discussed with plant breeder on-call patient will need to be admitted to the hospital. Dialysis tomorrow. Patient given IV calcium, albuterol, insulin and dextrose and Kayexalate for a life-threatening hyperkalemia. Patient will be admitted to the hospitalist service. Agents O2 sat is 92% on 4 L. Critical Care Time: Yes (50) Critical care time in (mins) excluding proc time.: 50 Critical care attestation.: If time is entered above; I have spent that time in minutes in the direct care of this critically ill patient, excluding procedure time. Critical care spent at patient's bedside 20 minutes Critical care time spent with recruiting operations consultant 10 minutes Critical care time spent reviewing patient's laboratory findings 10 minutes Critical care time saw reviewing patient's old records 10 minutes Critical care time spent reviewing patient's imaging findings 0 minutes ED Disposition Clinical Impression: Hyperkalemia, SOB (shortness of breath), Acute coronary syndrome, End stage renal disease on dialysis Chest pain Qualifiers: Chest pain type: unspecified Qualified Code(s): R07.9 - Chest pain, unspecified Anemia in chronic kidney disease Qualifiers: Chronic kidney disease stage: unspecified stage Qualified Code(s): N18.9 - Chronic kidney disease, unspecified Disposition: OP ADMIT IP TO THIS HOSP Is pt being admited?: Yes Does the pt Need Aspirin: No Condition: Stable Instructions: Chest Pain (ED) Referrals: PRIMARY CARE, [Primary Care Provider] - 3-5 Days
[2017-07-28] MEDS ORDERED: KIONEX PO ONE (21:43)
[2017-07-28] MEDS ORDERED: D50W (25GM) Vial IV ONE (23:00)
--- NOTE | 2017-07-28 23:59 | History and Physical Report ---
History of Present Illness Date of examination: 07/28/17 History of present illness: This is a 37-year-old woman with a history of end-stage renal disease on dialysis, hypertension, gastroparesis, CHF, COPD comes emergency room with complaint of nausea and vomiting, unable to tolerate oral intake. Also complaining of abdominal pain in the epigastric area which she describes as sharp pain, constant, intensity 7/10, no radiation, started on Tuesday. Patient last had dialysis on Tuesday, the session was not completed because her blood pressure was too high. Review Of Systems: Constitutional: no weight loss Ears, eyes, nose, mouth and throat: no nasal congestion, no nasal discharge, no sinus pressure, blurry vision, diplopia Neck: No neck pain or rigidity. Cardiovascular: chest pain, orthopnea, palpitations Respiratory: No shortness of breath, cough Gastrointestinal: abdominal pain, hematochezia Genitourinary : no dysuria, frequency , hematuria Musculoskeletal: no muscle ache Integumentary: no rash, no pruritis Neurological: no parathesias, focal weakness Endocrine: no cold or heat intolerance, no polyuria or polydipsia Hematologic/Lymphatic: no easy bruising, no easy bleeding, no gland swelling Allergic/Immunologic: no urticaria, no angioedema. PAST MEDICAL HISTORY: end-stage renal disease on dialysis, hypertension, gastroparesis, CHF, COPD PAST SURGICAL HISTORY:AVF FAMILY HISTORY: Hypertension SOCIAL HISTORY: Denies alcohol, tobacco, drugs Medications and Allergies Allergies Allergy/AdvReac Type Severity Reaction Status Date / Time lisinopril Allergy Shortness Verified 06/04/17 07:41 of Breath oxycodone HCl [From Percocet] Allergy Itching Verified 06/04/17 07:41 morphine AdvReac Anaphylaxis Verified 06/04/17 07:41 Home Medications Medication Instructions Recorded Confirmed Last Taken Type Promethazine [Phenergan TAB] 25 mg PO Q6H PRN 05/24/17 07/29/17 06/03/17 History SUMAtriptan SUCCINATE [Imitrex] 50 mg PO PRN PRN 05/26/17 07/29/17 06/03/17 History Metoclopramide [Reglan TAB] 10 mg PO ACHS #40 tablet 06/21/17 07/29/17 Unknown Rx Oxycodone HCl/Acetaminophen 1 each PO Q6HR PRN #20 tablet 06/21/17 07/29/17 Unknown Rx [Percocet 7.5/325 mg] Cyclobenzaprine HCl [Flexeril 5 MG 10 mg PO BID PRN #20 tablet 06/27/17 Unknown Rx TAB] Dicyclomine [Bentyl] 20 mg PO QID PRN #60 capsule 06/27/17 07/29/17 Unknown Rx Gabapentin [Neurontin] 100 mg PO TID #90 capsule 06/27/17 07/29/17 Unknown Rx Labetalol HCl 300 mg PO TID #90 tablet 06/27/17 07/29/17 Unknown Rx Losartan [Cozaar] 100 mg PO BID #60 tablet 06/27/17 07/29/17 Unknown Rx NIFEdipine XL [Procardia Xl] 90 mg PO QDAY #30 tablet 06/27/17 07/29/17 Unknown Rx Pantoprazole [Protonix TAB] 40 mg PO BID #20 tablet 06/27/17 07/29/17 Unknown Rx hydrALAZINE [Apresoline TAB] 100 mg PO TID #90 tab 06/27/17 07/29/17 Unknown Rx Exam - Physical Exam Narrative exam: Gen. appearance: Patient lying in bed in no acute distress HEENT: Normocephalic/atraumatic, pupils equal round reactive to light, extra alkaline movement intact, no scleral icterus, no JVD or thyromegaly or nodule, neck is supple, mucous membrane moist, no erythema or exudate Heart: S1-S2, regular rate and rhythm Lungs: Clear to auscultation bilateral breathing comfortable Abdomen: Positive bowel sounds, tender in the epigastric area, nondistended, no organomegaly Extremities: No edema, cyanosis, clubbing Neuro:: Oriented 3 , cranial nerves II-12 intact, speech, motor intact Skin: No rash, nodules, warm dry - Constitutional Vitals: Temp Pulse Resp BP Pulse Ox 97.7 F 86 18 159/65 96 07/28/17 19:00 07/28/17 23:02 07/28/17 23:02 07/28/17 23:00 07/28/17 23:00 Results - Labs CBC & Chem 7: 07/30/17 16:20 07/30/17 16:20 Labs: Abnormal lab results 07/28/17 07/28/17 Range/Units 19:25 19:25 RBC 3.12 L (3.65-5.03) M/mm3 Hgb 8.6 L (10.1-14.3) gm/dl Hct 26.5 L (30.3-42.9) % RDW 18.4 H (13.2-15.2) % Lymph % (Auto) 9.7 L (13.4-35.0) % Lymph # 0.9 L (1.2-5.4) K/mm3 Seg Neutrophils % 83.7 H (40.0-70.0) % Sodium 135 L (137-145) mmol/L Potassium 6.1 H* (3.6-5.0) mmol/L Chloride 92.0 L (98-107) mmol/L BUN 56 H (7-17) mg/dL Creatinine 7.8 H (0.7-1.2) mg/dL Alkaline Phosphatase 164 H (35-129) units/L Troponin T 0.257 H* (0.00-0.029) ng/mL Albumin 3.5 L (3.9-5) g/dL - Imaging and Cardiology EKG: image reviewed Chest x-ray: image reviewed Assessment and Plan Assessment Abdominal pain, unclear etiology Gastroparesis flare End-stage renal disease on dialysis Hypertension Diabetes of 2 COPD Plan Admit to medicine Obtain CAT scan of the abdomen and pelvis, start anti-emetic, IV dilaudid Consult renal for dialysis Check fingersticks and initiate insulin sliding-scale Condition appropriate outpatient medications DVT prophylaxis
[2017-07-29] MEDS ORDERED: DILAUDID IV PRN (00:12)
[2017-07-29] MEDS ORDERED: DULCOLAX PR PRN (00:24)
[2017-07-29] MEDS: DILAUDID IV PRN ×2 (00:40→06:59)
--- NOTE | 2017-07-29 01:12 | Cat Scan Report ---
FINAL REPORT EXAM: CT ABDOMEN PELVIS WO CON HISTORY: abdominal pain COMPARISON: CT of the abdomen pelvis July 15, 2017. TECHNIQUE: Contiguous axial images were obtained. Additional sagittal and coronal reformatted images were obtained. FINDINGS: Mild edema at the lung bases. Trace left and small right-sided pleural effusions with septal thickening at the lung bases. Moderate cardiac enlargement. Diffuse body wall edema. Small amount of ascites in the abdomen and pelvis. No loculated collection. Gallbladder surgically absent. Mild nonspecific periportal edema. Liver and spleen are grossly unremarkable. The soft tissue fullness at the level the pancreatic head. This may reflect anatomic variant for the patient. Mild pancreatitis could have a similar appearance. Underlying pancreatic lesion is not excluded. There is adjacent fat stranding and fluid. Some this may relate to nonspecific edema within the abdomen and pelvis. Nodular thickening of adrenal glands. Stable atrophy of the bilateral kidneys with punctate nonobstructive calculi. Aorta and IVC normal in caliber. There is several prominent but technically not enlarged retroperitoneal mesenteric lymph nodes suspected to be reactive. Bilateral fallopian embolization coils are present. Otherwise, uterus and urinary bladder are unremarkable. Ovaries are not well visualized. Moderate wall thickening of the stomach. This is concerning for gastritis. Otherwise, large and small bowel loops normal in caliber. Moderate stool in the colon. The appendix is normal in caliber measuring 5 millimeters. Lumbar vertebral body heights are preserved. Screw fixation right femoral neck. IMPRESSION: Soft tissue fullness of the pancreatic head new from prior study with adjacent fat stranding concerning for possible focal pancreatitis. Underlying pancreatic lesion is not excluded. Correlation with amylase lipase suggested. Moderate wall thickening the stomach concerning for mild gastritis. Findings compatible with anasarca. There is [id number] edema at the lung bases and diffuse body wall edema as well as small to moderate amount of free fluid in the abdomen and pelvis with diffuse mesenteric stranding and edema. Stable atrophy of the bilateral kidneys with bilateral punctate nonobstructive calculi.
[2017-07-29 03:13] LABS: Creatine Kinase MB 2.8 ng/mL (0.0-4.0)
[2017-07-29] MEDS ORDERED: D50W (25GM) Syringe IV PRN (06:25)
[2017-07-29] MEDS ORDERED: APRESOLINE IV PRN (06:26)
[2017-07-29 07:26] LABS: Chloride 93.9 mmol/L (98-107); Potassium 5.4 mmol/L (3.6-5.0)
[2017-07-29 07:28] LABS: Creatine Kinase MB 2.3 ng/mL (0.0-4.0)
[2017-07-29] MEDS ORDERED: NON-FORMULARY (Labetalol Hcl [Labetalol Hcl] 300 MG) PO SCH (08:00)
--- NOTE | 2017-07-29 08:18 | XRay Report ---
Portable chest: SOB. The heart is big. There is mild vascular redistribution to the upper lobes. A left jugular central venous line is present with the tip near the right atrium. The lungs are generally clear of any infiltrate. Compared to prior study of April 04, 2017 the cardiovascular pattern is similar. Impression: Cardiomegaly with borderline failure pattern.
[2017-07-29] MEDS ORDERED: BENADRYL IV ONE ×2 (08:24→14:10)
[2017-07-29] MEDS: REGLAN PO SCH ×3 (08:57→23:09)
[2017-07-29] MEDS: APRESOLINE PO SCH ×2 (08:58→17:15)
[2017-07-29] MEDS: NEURONTIN PO SCH ×3 (08:58→23:07)
[2017-07-29] MEDS: NOVOLOG SUB-Q SCH ×3 (09:00→16:58)
[2017-07-29] MEDS ORDERED: NACL 0.9% 100 ML IV PRN (10:32)
[2017-07-29] MEDS: COZAAR PO SCH ×2 (10:47→23:08)
[2017-07-29] MEDS: LOVENOX SUB-Q SCH (10:47)
[2017-07-29] MEDS: NORMODYNE PO SCH ×3 (10:48→20:45)
[2017-07-29] MEDS: PROCARDIA XL PO SCH (10:48)
[2017-07-29] MEDS: PROTONIX PO SCH ×2 (10:49→23:07)
--- NOTE | 2017-07-29 12:07 | Progress Note ---
Assessment and Plan Assessment and plan: 37 years old female we ESRD on HD, hypertension, pulmonary hypertension, diabetes with gastroparesis, likely noncompliance and drug seeking behavior, with frequent hospitalizations, presented for abdominal pain 1. Abdominal pain CT abdomen/pelvis with no acute findings Lipase within normal limits Discontinue Dilaudid Monitor 2. ESRD on HD Per her report, no missed HD, but questionable as potassium level elevated and CT abdomen with small amount of ascites and abdominal wall edema Dr. Trevino, her respite worker, consulted to resume HD 3. Hyperkalemia Medically treated Most likely will undergo dialysis today Monitor closely 4. Uncontrolled hypertension Most likely secondary to noncompliance I adjusted her antihypertensive regimen during her previous admission about 10 days ago and BP was well-controlled; at that time I discontinued clonidine to avoid rebound hypertension PO antihypertensives resumed - hydralazine, nifedipine, labetalol and losartan Likely HD today possible with UF Monitor BP 5. Fluid overload HD with UF per nephrology 6. Diabetes/gastroparesis/neuropathy BS in 100s SSI based on Accu-Cheks/Gabapentin 7. Noncompliance Extensively counseled during each hospitalization Continues to have drug-seeking behavior 8. DVT prophylaxis History Interval history: Complaining of abdominal pain and asking for dilaudid Hospitalist Physical - Constitutional Vitals: Temp Pulse Resp BP Pulse Ox 97.9 F 81 15 164/79 86 07/29/17 11:00 07/29/17 11:00 07/29/17 11:00 07/29/17 11:00 07/29/17 11:00 General appearance: Present: no acute distress, obese - EENT Eyes: Present: PERRL, EOM intact ENT: clear oral mucosa, edentulous - Neck Neck: Present: supple, normal ROM. Absent: masses or JVD - Respiratory Respiratory effort: normal Respiratory: bilateral: diminished, negative: rhonchi, wheezing - Cardiovascular Rhythm: regular Heart Sounds: Present: S1 & S2. Absent: systolic murmur - Extremities Extremities: no ischemia Extremity abnormal: edema - Abdominal General gastrointestinal: soft, tender, non-distended, normal bowel sounds Localized gastrointestinal: tender: epigastric periumbilical - Psychiatric Psychiatric: no intact judgment & insight - Neurologic Neurologic: CNII-XII intact, no focal deficits Results - Labs CBC & Chem 7: 07/28/17 19:25 07/29/17 06:54 Labs: Laboratory Last Values WBC 8.9 K/mm3 (4.5-11.0) 07/28/17 19:25 RBC 3.12 M/mm3 (3.65-5.03) L 07/28/17 19:25 Hgb 8.6 gm/dl (10.1-14.3) L 07/28/17 19:25 Hct 26.5 % (30.3-42.9) L 07/28/17 19:25 MCV 85 fl (79-97) 07/28/17 19:25 MCH 28 pg (28-32) 07/28/17 19:25 MCHC 33 % (30-34) 07/28/17 19:25 RDW 18.4 % (13.2-15.2) H 07/28/17 19:25 Plt Count 331 K/mm3 (140-440) 07/28/17 19:25 Lymph % (Auto) 9.7 % (13.4-35.0) L 07/28/17 19:25 [place] % (Auto) 5.7 % (0.0-7.3) 07/28/17 19:25 Eos % (Auto) 0.3 % (0.0-4.3) 07/28/17 19:25 Baso % (Auto) 0.6 % (0.0-1.8) 07/28/17 19:25 Lymph # 0.9 K/mm3 (1.2-5.4) L 07/28/17 19:25 [place] # 0.5 K/mm3 (0.0-0.8) 07/28/17 19:25 Eos # 0.0 K/mm3 (0.0-0.4) 07/28/17 19:25 Baso # 0.1 K/mm3 (0.0-0.1) 07/28/17 19:25 Seg Neutrophils % 83.7 % (40.0-70.0) H 07/28/17 19:25 Seg Neutrophils # 7.5 K/mm3 (1.8-7.7) 07/28/17 19:25 Sodium 141 mmol/L (137-145) 07/29/17 06:54 Potassium 5.4 mmol/L (3.6-5.0) H 07/29/17 06:54 Chloride 93.9 mmol/L (98-107) L 07/29/17 06:54 Carbon Dioxide 26 mmol/L (22-30) 07/29/17 06:54 Anion Gap 27 mmol/L 07/29/17 06:54 BUN 57 mg/dL (7-17) H 07/29/17 06:54 Creatinine 8.3 mg/dL (0.7-1.2) H 07/29/17 06:54 Estimated GFR 7 ml/min 07/29/17 06:54 BUN/Creatinine Ratio 7 % 07/29/17 06:54 Glucose 81 mg/dL (65-100) 07/29/17 06:54 POC Glucose 168 (70-105) H 07/29/17 08:52 Calcium 9.0 mg/dL (8.4-10.2) 07/29/17 06:54 Total Bilirubin 0.40 mg/dL (0.1-1.2) 07/28/17 19:25 AST 40 units/L (5-40) 07/28/17 19:25 ALT 45 units/L (7-56) 07/28/17 19:25 Alkaline Phosphatase 164 units/L (35-129) H 07/28/17 19:25 Total Creatine Kinase 53 units/L (30-135) 07/29/17 06:54 CK-MB (CK-2) 2.3 ng/mL (0.0-4.0) 07/29/17 06:54 CK-MB (CK-2) Rel Index 4.3 (0-4) H 07/29/17 06:54 Troponin T 0.313 ng/mL (0.00-0.029) H* 07/29/17 06:54 Total Protein 7.5 g/dL (6.3-8.2) 07/28/17 19:25 Albumin 3.5 g/dL (3.9-5) L 07/28/17 19:25 Albumin/Globulin Ratio 0.9 % 07/28/17 19:25 Triglycerides 102 mg/dL (2-149) 07/28/17 19:25 Cholesterol 132 mg/dL (50-199) 07/28/17 19:25 LDL Cholesterol Direct 61 mg/dL (50-130) 07/28/17 19:25 HDL Cholesterol 51 mg/dL (40-59) 07/28/17 19:25 Cholesterol/HDL Ratio 2.58 % 07/28/17 19:25 Lipase 30 units/L (13-60) 07/28/17 19:25
[2017-07-29] MEDS: ZOFRAN IV PRN (13:22)
[2017-07-29] MEDS ORDERED: NACL 0.9 (PRIMING MACHINE ONLY DIALYSIS) MC ONE (13:54)
--- NOTE | 2017-07-29 14:02 | Consultation ---
History of Present Illness - Reason for Consult Consult date: 07/29/17 end stage renal disease, hyperkalemia Requesting physician: WASHINGTON SUNG - History of Present Illness This is a 37 yo AAF with PMHx of type 2 Diabetes mellitus, hypertension complicated by end-stage renal disease on hemodialysis on a Tuesday, Tuesday and Tuesday schedule at [facility] dialysis, with frequent hospitalizations for recurrent gastroparesis and uncontrolled hypertension in the past, who again presents to [facility] ER today complaining of abdominal pain, nausea and vomiting. Pain is described to be sharp with radiation to the back, no aggravating or relieving factors identified. Pt denies fever, CP, SOB, palpitations, dysuria, rash, dizziness. Renal consult is requested for management of ESRD. Past History Past Medical History: diabetes, dialysis, hypertension, other (gastroparesis ) Past Surgical History: Other (port cath, AV fistula) Social history: Lives alone, prescription drug abuse. denies: smoking, alcohol abuse, IV drug use Family history: CAD, diabetes, hypertension Medications and Allergies Allergies Allergy/AdvReac Type Severity Reaction Status Date / Time lisinopril Allergy Shortness Verified 06/04/17 07:41 of Breath oxycodone HCl [From Percocet] Allergy Itching Verified 06/04/17 07:41 morphine AdvReac Anaphylaxis Verified 06/04/17 07:41 Home Medications Medication Instructions Recorded Confirmed Last Taken Type Promethazine [Phenergan TAB] 25 mg PO Q6H PRN 05/24/17 07/14/17 06/03/17 History SUMAtriptan SUCCINATE [Imitrex] 50 mg PO PRN PRN 05/26/17 07/14/17 06/03/17 History Metoclopramide [Reglan TAB] 10 mg PO ACHS #40 tablet 06/21/17 07/14/17 Unknown Rx Oxycodone HCl/Acetaminophen 1 each PO Q6HR PRN #20 tablet 06/21/17 07/14/17 Unknown Rx [Percocet 7.5/325 mg] Cyclobenzaprine HCl [Flexeril 5 MG 10 mg PO BID PRN #20 tablet 06/27/17 Unknown Rx TAB] Dicyclomine [Bentyl] 20 mg PO QID PRN #60 capsule 06/27/17 07/14/17 Unknown Rx Gabapentin [Neurontin] 100 mg PO TID #90 capsule 06/27/17 07/14/17 Unknown Rx Labetalol HCl 300 mg PO TID #90 tablet 06/27/17 07/14/17 Unknown Rx Losartan [Cozaar] 100 mg PO BID #60 tablet 06/27/17 07/14/17 Unknown Rx NIFEdipine XL [Procardia Xl] 90 mg PO QDAY #30 tablet 06/27/17 07/14/17 Unknown Rx Pantoprazole [Protonix TAB] 40 mg PO BID #20 tablet 06/27/17 07/14/17 Unknown Rx hydrALAZINE [Apresoline TAB] 100 mg PO TID #90 tab 06/27/17 07/14/17 Unknown Rx Active Meds: Active Medications Acetaminophen (Tylenol) 650 mg PO Q4H PRN PRN Reason: Pain MILD(1-3)/Fever >100.5/CRUZ Bisacodyl (Dulcolax) 10 mg OK QDAY PRN PRN Reason: Constipation unrelieved by MOM Dextrose (D50w (25gm) Syringe) 50 ml IV PRN PRN PRN Reason: Hypoglycemia Enoxaparin Sodium (Lovenox) 30 mg SUB-Q QDAY [facility] Last Admin: 07/29/17 10:47 Dose: Not Given Gabapentin (Neurontin) 100 mg PO TID [facility] Last Admin: 07/29/17 08:58 Dose: 100 mg Hydralazine HCl (Apresoline) 5 mg IV Q6HR PRN PRN Reason: Hypertension Hydralazine HCl (Apresoline) 100 mg PO TID [facility] Last Admin: 07/29/17 08:58 Dose: 100 mg Sodium Chloride (Nacl 0.9%) 100 mls @ 999 mls/hr IV CELENA PRN PRN Reason: Hypotension Insulin Aspart (Novolog) 0 units SUB-Q ACHS [facility] PRN Reason: Protocol Last Admin: 07/29/17 09:00 Dose: 3 units Labetalol HCl (Normodyne) 300 mg PO TID [facility] Last Admin: 07/29/17 10:48 Dose: 300 mg Losartan Potassium (Cozaar) 100 mg PO BID [facility] Last Admin: 07/29/17 10:47 Dose: 100 mg Metoclopramide HCl (Reglan) 5 mg PO BID [facility] Last Admin: 07/29/17 10:57 Dose: Not Given Nifedipine (Procardia Xl) 90 mg PO QDAY [facility] Last Admin: 07/29/17 10:48 Dose: 90 mg Ondansetron HCl (Zofran) 4 mg IV Q8H PRN PRN Reason: N/V unrelieved by Reglan Last Admin: 07/29/17 13:22 Dose: 4 mg Pantoprazole Sodium (Protonix) 40 mg PO BID [facility] Last Admin: 07/29/17 10:49 Dose: 40 mg Review of Systems All systems: negative Constitutional: malaise, poor appetite, chronic pain Gastrointestinal: abdominal pain, nausea, vomiting Exam - Vital Signs Vital signs: Vital Signs Resp Pulse Ox 16 86 07/28/17 17:15 07/28/17 17:15 - General Appearance General appearance: well-developed, appears stated age EENT: ATNC, PERRL, mucous membranes moist Neck: Present: neck supple Respiratory: Clear to Ascultation Heart: regular, S1S2 Gastrointestinal: Present: tenderness Integumentary: no rash, other (no edema) Neurologic: no focal deficit, alert and oriented x3, strength 5/5, CN 3-12 intact Psychiatric: mood/affect appropriate, cooperative Results - Lab Results 07/28/17 19:25 07/29/17 06:54 Most recent lab results Calcium 9.0 mg/dL (8.4-10.2) 07/29/17 06:54 Assessment and Plan - Patient Problems (1) Hyperkalemia Current Visit: Yes Status: Acute Plan to address problem: will arrange HD today, using 2K bath. cont 2g K renal diet. (2) Gastroparesis Current Visit: No Status: Acute Plan to address problem: reglan prn, consider GI consult (3) Hypertensive chronic kidney disease with stage 5 chronic kidney disease or end stage renal disease Current Visit: No Status: Acute Plan to address problem: target UF 3kg as tolerated, will monitor BP and adjust meds accordingly (4) T2DM (type 2 diabetes mellitus) Current Visit: No Status: Chronic Qualifiers: Diabetes mellitus complication status: without complication Diabetes mellitus complication detail: D Diabetic retinopathy severity: D Proliferative retinopathy type: P Diabetes mellitus macular edema: D Diabetes mellitus termite exterminator helper insulin use: without termite exterminator helper use Laterality: L Chronic kidney disease stage: C Qualified Code(s): E11.9 - Type 2 diabetes mellitus without complications Plan to address problem: glucose control as per primary attending (5) End stage renal disease on dialysis Current Visit: Yes Status: Chronic Plan to address problem: cont HD on MWF schedule (6) Anemia in chronic kidney disease Current Visit: Yes Status: Acute Qualifiers: Chronic kidney disease stage: unspecified stage Qualified Code(s): N18.9 - Chronic kidney disease, unspecified; D63.1 - Anemia in chronic kidney disease Plan to address problem: cont EPO with HD
[2017-07-29] MEDS ORDERED: APRESOLINE ONE (17:07)
[2017-07-29] MEDS ORDERED: NEURONTIN ONE (17:07)
[2017-07-29] MEDS ORDERED: NORMODYNE ONE (17:08)
[2017-07-29] MEDS: TYLENOL PO PRN (20:00)
[2017-07-30] MEDS: TYLENOL PO PRN ×4 (04:30→22:00)
[2017-07-30] MEDS: NOVOLOG SUB-Q SCH ×5 (05:07→22:02)
[2017-07-30] MEDS: REGLAN PO SCH ×2 (10:41→22:02)
[2017-07-30] MEDS: ZOFRAN IV PRN ×3 (10:43→23:16)
[2017-07-30] MEDS: COZAAR PO SCH ×2 (10:46→21:59)
[2017-07-30] MEDS: PROTONIX PO SCH ×2 (10:47→22:02)
[2017-07-30] MEDS: PROCARDIA XL PO SCH (10:47)
[2017-07-30] MEDS: APRESOLINE PO SCH ×3 (10:48→22:03)
[2017-07-30] MEDS: NORMODYNE PO SCH ×3 (10:49→22:01)
[2017-07-30] MEDS: NEURONTIN PO SCH ×3 (10:50→22:01)
[2017-07-30] MEDS: LOVENOX SUB-Q SCH (10:51)
--- NOTE | 2017-07-30 16:30 | Progress Note ---
Assessment and Plan - Patient Problems (1) Hyperkalemia Current Visit: Yes Status: Acute Plan to address problem: cont 2g K renal diet. (2) Gastroparesis Current Visit: No Status: Acute Plan to address problem: reglan prn, consider GI consult (3) Hypertensive chronic kidney disease with stage 5 chronic kidney disease or end stage renal disease Current Visit: No Status: Chronic Plan to address problem: resume home BP meds. IV hydralazine for SBP >180mmHg. Will increased UF with HD as tolerated (4) T2DM (type 2 diabetes mellitus) Current Visit: No Status: Chronic Qualifiers: Diabetes mellitus complication status: without complication Diabetes mellitus complication detail: D Diabetic retinopathy severity: D Proliferative retinopathy type: P Diabetes mellitus macular edema: D Diabetes mellitus intermodal owner operator truck driver insulin use: without intermodal owner operator truck driver use Laterality: L Chronic kidney disease stage: C Qualified Code(s): E11.9 - Type 2 diabetes mellitus without complications Plan to address problem: glucose control as per primary attending (5) End stage renal disease on dialysis Current Visit: Yes Status: Chronic Plan to address problem: cont HD on MWF schedule (6) Anemia in chronic kidney disease Current Visit: Yes Status: Acute Qualifiers: Chronic kidney disease stage: unspecified stage Qualified Code(s): N18.9 - Chronic kidney disease, unspecified; D63.1 - Anemia in chronic kidney disease Plan to address problem: cont EPO with HD Subjective Date of service: 07/30/17 Principal diagnosis: ESRD Interval history: Pt awake, alert, c/o intermittent abd pain Objective - Vital Signs Vital signs: Vital Signs - 12hr 07/30/17 07/30/17 07/30/17 04:30 07:39 09:03 Temperature 98.9 F Pulse Rate 90 Respiratory 16 18 Rate Blood Pressure 204/86 O2 Sat by Pulse 99 100 Oximetry - General Appearance General appearance: well-developed, well-nourished, appears stated age EENT: ATNC, PERRL, mucous membranes moist Neck: no JVD Respiratory: Present: Clear to Ascultation Cardiology: regular, S1S2 Gastrointestinal: normoactive bowel sounds Integumentary: no rash, other (no edema ) Neurologic: no focal deficit, alert and oriented x3, strength 5/5, CN 3-12 intact Psychiatric: mood/affect appropriate, cooperative - Lab 07/28/17 19:25 07/29/17 06:54 Most recent lab results Calcium 9.0 mg/dL (8.4-10.2) 07/29/17 06:54
[2017-07-30 16:37] LABS: Basophils % (Auto) 0.6 % (0.0-1.8); Hemoglobin 8.3 gm/dl (10.1-14.3); Mean Corpuscular HGB Conc 33 % (30-34); Mean Corpuscular Hemoglobin 29 pg (28-32); Mean Corpuscular Volume 87 fl (79-97); Platelet Count 280 K/mm3 (140-440); Red Blood Count 2.89 M/mm3 (3.65-5.03); Red Cell Distribution Width 19.3 % (13.2-15.2); White Blood Count 5.1 K/mm3 (4.5-11.0)
[2017-07-30 16:55] LABS: Calcium 8.7 mg/dL (8.4-10.2); Chloride 94.5 mmol/L (98-107); Potassium 4.2 mmol/L (3.6-5.0)
[2017-07-30] MEDS: PERCOCET 5/325 PO PRN (18:15)
--- NOTE | 2017-07-30 21:37 | Progress Note ---
Assessment and Plan Assessment and plan: 37 years old female we ESRD on HD, hypertension, pulmonary hypertension, diabetes with gastroparesis, likely noncompliance and drug seeking behavior, with frequent hospitalizations, presented for abdominal pain 1. Abdominal pain CT abdomen/pelvis with no acute findings Lipase within normal limits Dilaudid discontinued Monitor 2. ESRD on HD Per her report, no missed HD, but questionable as potassium level elevated and CT abdomen with small amount of ascites and abdominal wall edema Dr. Trevino, her press tender short goods, consulted to resume HD 3. Hyperkalemia Medically treated, then under went dialysis Within normal limits now Continue to monitor 4. Uncontrolled hypertension Most likely secondary to noncompliance I adjusted her antihypertensive regimen during her previous admission about 10 days ago and BP was well-controlled; at that time I discontinued clonidine to avoid rebound hypertension PO antihypertensives resumed - hydralazine, nifedipine, labetalol and losartan HD with UF Monitor BP 5. Fluid overload HD with UF per nephrology 6. Diabetes/gastroparesis/neuropathy BS in 100s SSI based on Accu-Cheks/Gabapentin 7. Noncompliance Extensively counseled during each hospitalization Continues to have drug-seeking behavior 8. DVT prophylaxis History Interval history: Still complaining of abdominal pain and asking for IV pain medication Hospitalist Physical - Constitutional Vitals: Temp Pulse Resp BP Pulse Ox 97.7 F 78 16 127/60 67 L 07/30/17 19:52 07/30/17 20:00 07/30/17 19:52 07/30/17 19:52 07/30/17 19:52 General appearance: Present: no acute distress, obese - EENT ENT: clear oral mucosa, poor dentition - Neck Neck: Present: supple. Absent: enlarged thyroid, masses or JVD - Respiratory Respiratory effort: normal Respiratory: bilateral: CTA, negative: rhonchi, wheezing - Cardiovascular Rhythm: regular Heart Sounds: Present: S1 & S2. Absent: systolic murmur - Extremities Extremities: no ischemia - Abdominal General gastrointestinal: soft, non-tender (to palpation), non-distended, normal bowel sounds - Psychiatric Psychiatric: agitated, other (asking constantly for pain medications) - Neurologic Neurologic: no focal deficits Results - Labs CBC & Chem 7: 07/30/17 16:20 07/30/17 16:20 Labs: Laboratory Last Values WBC 5.1 K/mm3 (4.5-11.0) 07/30/17 16:20 RBC 2.89 M/mm3 (3.65-5.03) L 07/30/17 16:20 Hgb 8.3 gm/dl (10.1-14.3) L 07/30/17 16:20 Hct 25.0 % (30.3-42.9) L 07/30/17 16:20 MCV 87 fl (79-97) 07/30/17 16:20 MCH 29 pg (28-32) 07/30/17 16:20 MCHC 33 % (30-34) 07/30/17 16:20 RDW 19.3 % (13.2-15.2) H 07/30/17 16:20 Plt Count 280 K/mm3 (140-440) 07/30/17 16:20 Lymph % (Auto) 14.0 % (13.4-35.0) 07/30/17 16:20 [place] % (Auto) 7.9 % (0.0-7.3) H 07/30/17 16:20 Eos % (Auto) 1.0 % (0.0-4.3) 07/30/17 16:20 Baso % (Auto) 0.6 % (0.0-1.8) 07/30/17 16:20 Lymph # 0.7 K/mm3 (1.2-5.4) L 07/30/17 16:20 [place] # 0.4 K/mm3 (0.0-0.8) 07/30/17 16:20 Eos # 0.1 K/mm3 (0.0-0.4) 07/30/17 16:20 Baso # 0.0 K/mm3 (0.0-0.1) 07/30/17 16:20 Seg Neutrophils % 76.5 % (40.0-70.0) H 07/30/17 16:20 Seg Neutrophils # 3.9 K/mm3 (1.8-7.7) 07/30/17 16:20 Sodium 140 mmol/L (137-145) 07/30/17 16:20 Potassium 4.2 mmol/L (3.6-5.0) D 07/30/17 16:20 Chloride 94.5 mmol/L (98-107) L 07/30/17 16:20 Carbon Dioxide 28 mmol/L (22-30) 07/30/17 16:20 Anion Gap 22 mmol/L 07/30/17 16:20 BUN 29 mg/dL (7-17) H 07/30/17 16:20 Creatinine 6.4 mg/dL (0.7-1.2) H 07/30/17 16:20 Estimated GFR 9 ml/min 07/30/17 16:20 BUN/Creatinine Ratio 5 % 07/30/17 16:20 Glucose 138 mg/dL (65-100) H 07/30/17 16:20 POC Glucose 137 (70-105) H 07/30/17 16:20 Calcium 8.7 mg/dL (8.4-10.2) 07/30/17 16:20 Total Bilirubin 0.40 mg/dL (0.1-1.2) 07/28/17 19:25 AST 40 units/L (5-40) 07/28/17 19:25 ALT 45 units/L (7-56) 07/28/17 19:25 Alkaline Phosphatase 164 units/L (35-129) H 07/28/17 19:25 Total Creatine Kinase 53 units/L (30-135) 07/29/17 06:54 CK-MB (CK-2) 2.3 ng/mL (0.0-4.0) 07/29/17 06:54 CK-MB (CK-2) Rel Index 4.3 (0-4) H 07/29/17 06:54 Troponin T 0.313 ng/mL (0.00-0.029) H* 07/29/17 06:54 Total Protein 7.5 g/dL (6.3-8.2) 07/28/17 19:25 Albumin 3.5 g/dL (3.9-5) L 07/28/17 19:25 Albumin/Globulin Ratio 0.9 % 07/28/17 19:25 Triglycerides 102 mg/dL (2-149) 07/28/17 19:25 Cholesterol 132 mg/dL (50-199) 07/28/17 19:25 LDL Cholesterol Direct 61 mg/dL (50-130) 07/28/17 19:25 HDL Cholesterol 51 mg/dL (40-59) 07/28/17 19:25 Cholesterol/HDL Ratio 2.58 % 07/28/17 19:25 Lipase 30 units/L (13-60) 07/28/17 19:25
[2017-07-30] MEDS: XANAX PO SCH (22:00)
[2017-07-31] MEDS: PERCOCET 5/325 PO PRN ×3 (03:00→18:26)
[2017-07-31] MEDS: NOVOLOG SUB-Q SCH ×4 (06:30→22:40)
[2017-07-31] MEDS: NORMODYNE PO SCH ×4 (08:00→21:10)
[2017-07-31] MEDS: APRESOLINE PO SCH ×2 (09:32→21:11)
[2017-07-31] MEDS: PROCARDIA XL PO SCH (09:33)
[2017-07-31] MEDS: XANAX PO SCH ×2 (09:33→22:39)
[2017-07-31] MEDS: REGLAN PO SCH ×2 (09:34→22:38)
[2017-07-31] MEDS: ZOFRAN IV PRN ×2 (09:35→18:37)
[2017-07-31] MEDS: PROTONIX PO SCH ×2 (09:35→22:38)
[2017-07-31] MEDS: NEURONTIN PO SCH ×3 (09:36→21:10)
--- NOTE | 2017-07-31 10:03 | Progress Note ---
Assessment and Plan - Patient Problems (1) Hyperkalemia Current Visit: Yes Status: Acute Plan to address problem: resolved cont 2g K renal diet. (2) Gastroparesis Current Visit: No Status: Acute Plan to address problem: reglan prn, awaiting gastric emptying study (3) Hypertensive chronic kidney disease with stage 5 chronic kidney disease or end stage renal disease Current Visit: No Status: Chronic Plan to address problem: resume home BP meds. IV hydralazine for SBP >180mmHg. Will increased UF with HD as tolerated (4) T2DM (type 2 diabetes mellitus) Current Visit: No Status: Chronic Qualifiers: Diabetes mellitus complication status: without complication Diabetes mellitus complication detail: D Diabetic retinopathy severity: D Proliferative retinopathy type: P Diabetes mellitus macular edema: D Diabetes mellitus mcfp insulin use: without mcfp use Laterality: L Chronic kidney disease stage: C Qualified Code(s): E11.9 - Type 2 diabetes mellitus without complications Plan to address problem: glucose control as per primary attending (5) End stage renal disease on dialysis Current Visit: Yes Status: Chronic Plan to address problem: cont HD on MWF schedule (6) Anemia in chronic kidney disease Current Visit: Yes Status: Acute Qualifiers: Chronic kidney disease stage: unspecified stage Qualified Code(s): N18.9 - Chronic kidney disease, unspecified; D63.1 - Anemia in chronic kidney disease Plan to address problem: cont EPO with HD Subjective Date of service: 07/31/17 Principal diagnosis: ESRD Interval history: Pt awake, alert, c/o generalized itching Objective - Vital Signs Vital signs: Vital Signs - 12hr 07/30/17 07/30/17 07/31/17 22:10 23:00 03:00 Temperature Pulse Rate Respiratory 20 17 Rate Blood Pressure [Left] O2 Sat by Pulse 95 Oximetry 07/31/17 07/31/17 07/31/17 04:00 07:24 07:50 Temperature 99.8 F H Pulse Rate 86 85 85 Respiratory 20 18 Rate Blood Pressure 128/54 [Left] O2 Sat by Pulse 100 Oximetry - General Appearance General appearance: well-developed, well-nourished, appears stated age EENT: ATNC, PERRL, mucous membranes moist Neck: no JVD Respiratory: Present: Clear to Ascultation Cardiology: regular, S1S2 Gastrointestinal: normoactive bowel sounds Integumentary: no rash, other (no edema ) Neurologic: no focal deficit, alert and oriented x3, strength 5/5, CN 3-12 intact Psychiatric: mood/affect appropriate - Lab 07/30/17 16:20 07/30/17 16:20 Most recent lab results Calcium 8.7 mg/dL (8.4-10.2) 07/30/17 16:20
[2017-07-31] MEDS: LOVENOX SUB-Q SCH (10:32)
[2017-07-31] MEDS ORDERED: BENADRYL IV ONE (11:00)
[2017-07-31] MEDS: COZAAR PO SCH ×2 (13:19→22:39)
[2017-07-31] MEDS: TYLENOL PO PRN ×2 (13:23→22:37)
--- NOTE | 2017-07-31 17:43 | Progress Note ---
Assessment and Plan Assessment and plan: 37 years old female we ESRD on HD, hypertension, pulmonary hypertension, diabetes with gastroparesis, likely noncompliance and drug seeking behavior, with frequent hospitalizations, presented for abdominal pain 1. Abdominal pain CT abdomen/pelvis with no acute findings Lipase within normal limits Dilaudid discontinued Monitor 2. ESRD on HD Per her report, no missed HD, but questionable as potassium level elevated and CT abdomen with small amount of ascites and abdominal wall edema Dr. Trevino, her skin diver, consulted to resume HD 3. Hyperkalemia Medically treated, then under went dialysis Within normal limits now Continue to monitor 4. Uncontrolled hypertension Most likely secondary to noncompliance I adjusted her antihypertensive regimen during her previous admission about 10 days ago and BP was well-controlled; at that time I discontinued clonidine to avoid rebound hypertension PO antihypertensives resumed - hydralazine, nifedipine, labetalol and losartan HD with UF Monitor BP 5. Fluid overload HD with UF per nephrology 6. Diabetes/gastroparesis/neuropathy BS in 100s SSI based on Accu-Cheks/Gabapentin Obtain gastric emptying study 7. Noncompliance Extensively counseled during each hospitalization Continues to have drug-seeking behavior 8. DVT prophylaxis History Interval history: Continues to complains of severe abdominal pain every time when medical staff enters the room Hospitalist Physical - Constitutional Vitals: Temp Pulse Resp BP Pulse Ox 98.7 F 77 20 108/49 99 07/31/17 15:36 07/31/17 15:36 07/31/17 15:36 07/31/17 15:36 07/31/17 15:36 General appearance: Present: no acute distress, obese - EENT Eyes: Present: PERRL, EOM intact ENT: clear oral mucosa, poor dentition - Respiratory Respiratory effort: normal Respiratory: bilateral: CTA, negative: rhonchi, wheezing - Cardiovascular Rhythm: regular Heart Sounds: Present: S1 & S2. Absent: systolic murmur - Extremities Extremities: no ischemia - Abdominal General gastrointestinal: soft, non-tender (to palpation), non-distended, normal bowel sounds - Psychiatric Psychiatric: no appropriate mood/affect, no intact judgment & insight - Neurologic Neurologic: CNII-XII intact, no focal deficits Results - Labs CBC & Chem 7: 07/30/17 16:20 07/30/17 16:20 Labs: Laboratory Last Values WBC 5.1 K/mm3 (4.5-11.0) 07/30/17 16:20 RBC 2.89 M/mm3 (3.65-5.03) L 07/30/17 16:20 Hgb 8.3 gm/dl (10.1-14.3) L 07/30/17 16:20 Hct 25.0 % (30.3-42.9) L 07/30/17 16:20 MCV 87 fl (79-97) 07/30/17 16:20 MCH 29 pg (28-32) 07/30/17 16:20 MCHC 33 % (30-34) 07/30/17 16:20 RDW 19.3 % (13.2-15.2) H 07/30/17 16:20 Plt Count 280 K/mm3 (140-440) 07/30/17 16:20 Lymph % (Auto) 14.0 % (13.4-35.0) 07/30/17 16:20 [place] % (Auto) 7.9 % (0.0-7.3) H 07/30/17 16:20 Eos % (Auto) 1.0 % (0.0-4.3) 07/30/17 16:20 Baso % (Auto) 0.6 % (0.0-1.8) 07/30/17 16:20 Lymph # 0.7 K/mm3 (1.2-5.4) L 07/30/17 16:20 [place] # 0.4 K/mm3 (0.0-0.8) 07/30/17 16:20 Eos # 0.1 K/mm3 (0.0-0.4) 07/30/17 16:20 Baso # 0.0 K/mm3 (0.0-0.1) 07/30/17 16:20 Seg Neutrophils % 76.5 % (40.0-70.0) H 07/30/17 16:20 Seg Neutrophils # 3.9 K/mm3 (1.8-7.7) 07/30/17 16:20 Sodium 140 mmol/L (137-145) 07/30/17 16:20 Potassium 4.2 mmol/L (3.6-5.0) D 07/30/17 16:20 Chloride 94.5 mmol/L (98-107) L 07/30/17 16:20 Carbon Dioxide 28 mmol/L (22-30) 07/30/17 16:20 Anion Gap 22 mmol/L 07/30/17 16:20 BUN 29 mg/dL (7-17) H 07/30/17 16:20 Creatinine 6.4 mg/dL (0.7-1.2) H 07/30/17 16:20 Estimated GFR 9 ml/min 07/30/17 16:20 BUN/Creatinine Ratio 5 % 07/30/17 16:20 Glucose 138 mg/dL (65-100) H 07/30/17 16:20 POC Glucose 59 (70-105) L 07/31/17 11:33 Hemoglobin A1c 4.8 % (4-6) 07/31/17 Unknown Calcium 8.7 mg/dL (8.4-10.2) 07/30/17 16:20 Total Bilirubin 0.40 mg/dL (0.1-1.2) 07/28/17 19:25 AST 40 units/L (5-40) 07/28/17 19:25 ALT 45 units/L (7-56) 07/28/17 19:25 Alkaline Phosphatase 164 units/L (35-129) H 07/28/17 19:25 Total Creatine Kinase 53 units/L (30-135) 07/29/17 06:54 CK-MB (CK-2) 2.3 ng/mL (0.0-4.0) 07/29/17 06:54 CK-MB (CK-2) Rel Index 4.3 (0-4) H 07/29/17 06:54 Troponin T 0.313 ng/mL (0.00-0.029) H* 07/29/17 06:54 Total Protein 7.5 g/dL (6.3-8.2) 07/28/17 19:25 Albumin 3.5 g/dL (3.9-5) L 07/28/17 19:25 Albumin/Globulin Ratio 0.9 % 07/28/17 19:25 Triglycerides 102 mg/dL (2-149) 07/28/17 19:25 Cholesterol 132 mg/dL (50-199) 07/28/17 19:25 LDL Cholesterol Direct 61 mg/dL (50-130) 07/28/17 19:25 HDL Cholesterol 51 mg/dL (40-59) 07/28/17 19:25 Cholesterol/HDL Ratio 2.58 % 07/28/17 19:25 Lipase 30 units/L (13-60) 07/28/17 19:25
[2017-08-01] MEDS: PERCOCET 5/325 PO PRN ×3 (00:53→15:09)
[2017-08-01] MEDS: ZOFRAN IV PRN ×3 (02:26→18:03)
[2017-08-01] MEDS ORDERED: BENADRYL IV ONE ×2 (08:25→19:00)
--- NOTE | 2017-08-01 09:07 | Progress Note ---
Assessment and Plan - Patient Problems (1) Hyperkalemia Current Visit: Yes Status: Acute Plan to address problem: Resolved with dialysis. (2) Hypertensive chronic kidney disease with stage 5 chronic kidney disease or end stage renal disease Current Visit: No Status: Chronic Plan to address problem: Follow-up blood pressure on current medications (3) Gastroparesis due to DM Current Visit: No Status: Chronic Plan to address problem: Follow-up gastric emptying scan. Continue Reglan. Give a dose of Phenergan predialysis (4) End stage renal disease on dialysis Current Visit: Yes Status: Chronic Plan to address problem: Hemodialysis this morning and then continue on a Tuesday, Tuesday and Tuesday schedule. (5) Type 2 diabetes mellitus with diabetic chronic kidney disease Current Visit: Yes Status: Acute Qualifiers: Diabetes mellitus fpc insulin use: D Chronic kidney disease stage: C Plan to address problem: Blood sugar management by primary attending (6) Anemia in chronic kidney disease Current Visit: Yes Status: Acute Qualifiers: Chronic kidney disease stage: unspecified stage Qualified Code(s): N18.9 - Chronic kidney disease, unspecified; D63.1 - Anemia in chronic kidney disease Plan to address problem: Give Erythropoetin on dialysis and follow-up hemoglobin Subjective Date of service: 08/01/17 Principal diagnosis: ESRD Interval history: Patient seen lying in bed. She just got back from gastric emptying scan. She denies any chest pain or shortness of breath. She complains of epigastric pain and nausea. Objective - Exam Narrative Exam: Young -Nepalese female lying in bed in no acute distress HEENT: NCAT, pink oral mucous membrane Neck: Supple, no venous distention CVS: S1S2 RRR with no murmur, rub or gallop Chest: Clear to auscultation Abdomen: Protuberant, soft, mild epigastric tenderness, no organomegaly, bowel sounds are present Extremities: No edema, no clubbing Skin: No rash, warm and dry Neuro: Awake, alert no focal deficits - Vital Signs Vital signs: Vital Signs - 12hr 07/31/17 07/31/17 07/31/17 21:10 21:49 22:00 Temperature Pulse Rate 80 Respiratory Rate Respiratory 20 Rate [ epigastric] Blood Pressure 129/58 O2 Sat by Pulse 100 99 Oximetry 07/31/17 07/31/17 07/31/17 22:37 22:39 23:37 Temperature Pulse Rate 84 Respiratory 18 18 Rate Respiratory Rate [ epigastric] Blood Pressure 131/62 O2 Sat by Pulse Oximetry 07/31/17 08/01/17 08/01/17 23:51 00:53 01:53 Temperature 98.5 F Pulse Rate 87 Respiratory 16 20 20 Rate Respiratory Rate [ epigastric] Blood Pressure 142/65 O2 Sat by Pulse 70 L Oximetry 08/01/17 08/01/17 03:46 04:00 Temperature 98.7 F Pulse Rate 86 84 Respiratory 14 Rate Respiratory Rate [ epigastric] Blood Pressure 115/55 O2 Sat by Pulse 67 L Oximetry - Lab 07/30/17 16:20 07/30/17 16:20 Most recent lab results Calcium 8.7 mg/dL (8.4-10.2) 07/30/17 16:20
[2017-08-01] MEDS ORDERED: PHENERGAN PO PRN (09:11)
[2017-08-01] MEDS: NEURONTIN PO SCH ×3 (09:16→23:23)
[2017-08-01] MEDS: APRESOLINE PO SCH ×3 (09:17→23:25)
[2017-08-01] MEDS: NOVOLOG SUB-Q SCH ×4 (09:22→23:25)
[2017-08-01] MEDS: NORMODYNE PO SCH ×3 (09:23→23:22)
[2017-08-01] MEDS: XANAX PO SCH ×2 (09:24→23:16)
--- NOTE | 2017-08-01 10:09 | Nuclear Medicine Report ---
NUCLEAR MEDICINE GASTRIC EMPTYING SCAN History: Gastroparesis, diabetes Findings: Anterior scintigraphic images were obtained for 90 minutes following ingestion of 1.0 mCi of technetium 99m sulfur colloid. Half life for gastric emptying measures 25 minutes. Impression: Normal gastric emptying.
[2017-08-01] MEDS: LOVENOX SUB-Q SCH ×2 (10:57→11:19)
[2017-08-01] MEDS: PROCARDIA XL PO SCH (10:57)
[2017-08-01] MEDS: REGLAN PO SCH ×2 (10:57→23:15)
[2017-08-01] MEDS: PROTONIX PO SCH ×2 (10:57→23:15)
[2017-08-01] MEDS: COZAAR PO SCH ×2 (10:58→23:18)
--- NOTE | 2017-08-01 13:35 | Discharge Summary ---
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 Repeat CT abdomen/pelvis in ER negative, as well as lipase. Patient to have elevated blood pressure on admission secondary to noncompliance; during her previous admission 10 days ago I adjusted her antihypertensive regimen and BP was well-controlled; at that time I discontinued clonidine to avoid rebound hypertension and she was discharged on hydralazine, nifedipine, labetalol and losartan; this have been restarted during this admission and BP controlled; also she underwent HD with UF for fluid removal. She constantly complained of abdominal pains and was asking for IV pain medications. Gastric emptying study was obtained and was normal; also, A1c checked and within normal limits. Patient was extensively counseled, but nothing changes her mind. On discharge asking again for pain medications and I advised her to contact her pain management physician as she needs to be weaned off. Discharge diagnoses: 1. Chronic abdominal pain 2. ESRD on HD 3. Hyperkalemia 4. Anemia of renal failure 4. Uncontrolled hypertension 5. Fluid overload 6. Diabetes/gastroparesis/neuropathy suspected, but negative studies 7. Noncompliance 8. Drug-seeking behavior Disposition: DC-01 TO HOME OR SELFCARE Time spent for discharge: 35 min Core Measure Documentation - Palliative Care Palliative Care/ Comfort Measures: Not Applicable - Core Measures Any of the following diagnoses?: none Exam - Physical Exam Narrative exam: Seen and examined: - Constitutional Vitals: Temp Pulse Resp BP Pulse Ox 98.6 F 83 20 145/68 71 L 08/01/17 11:23 08/01/17 11:23 08/01/17 11:23 08/01/17 13:20 08/01/17 11:23 General appearance: Present: no acute distress - EENT Eyes: Present: PERRL, EOM intact ENT: clear oral mucosa, poor dentition - Respiratory Respiratory effort: normal Respiratory: bilateral: CTA, negative: rhonchi, wheezing - Cardiovascular Rhythm: regular Heart Sounds: Present: S1 & S2. Absent: systolic murmur - Extremities Extremities: no ischemia - Abdominal General gastrointestinal: Present: soft, non-tender, non-distended, normal bowel sounds - Psychiatric Psychiatric: no intact judgment & insight - Neurologic Neurologic: no focal deficits Plan Activity: advance as tolerated Diet: low cholesterol, low salt, renal Additional Instructions: Resume outpatient dyalisis Follow up with: PRIMARY MD YARITZA [Primary Care Provider] - 3-5 Days GAURAV DURBIN MD [Staff Physician] - 3 Days Pending Studies HD
[2017-08-01] MEDS ORDERED: NACL 0.9% 100 ML IV PRN (19:52)
[2017-08-01] MEDS ORDERED: BENADRYL IV PRN (19:52)
[2017-08-01] MEDS ORDERED: NACL 0.9 (PRIMING MACHINE ONLY DIALYSIS) MC ONE (23:10)
[2017-08-01 23:23] VITALS: BP 162/75
[2017-08-01] MEDS ORDERED: FLUSH HEPARIN IV ONE (23:55)
== END 2017-08-02 00:50 | disposition home or self-care (01) | DRG 291 ==
LOC: ED 16:40 → 4A 23:59 → 3A 07-29 15:35
PROVIDERS: ADMIT Internal Medicine; ATTEND Internal Medicine
PROC: 5A1D70Z Performance of Urinary Filtration, Intermittent, Less than 6 Hours Per Day (ICD-10-PCS; principal; 2017-07-29)
DX: I13.2 Hypertensive heart and chronic kidney disease with heart failure and with stage 5 chronic kidney disease, or end stage renal disease (principal); N18.6 End stage renal disease; R10.9 Unspecified abdominal pain; E11.43 Type 2 diabetes mellitus with diabetic autonomic (poly)neuropathy; Z99.2 Dependence on renal dialysis; E87.5 Hyperkalemia; E87.70 Fluid overload, unspecified; G62.9 Polyneuropathy, unspecified; D64.9 Anemia, unspecified; Z88.8 Allergy status to other drugs, medicaments and biological substances; E11.22 Type 2 diabetes mellitus with diabetic chronic kidney disease; I50.9 Heart failure, unspecified; J44.9 Chronic obstructive pulmonary disease, unspecified; Z98.51 Tubal ligation status; Z90.49 Acquired absence of other specified parts of digestive tract; D63.1 Anemia in chronic kidney disease; Z82.49 Family history of ischemic heart disease and other diseases of the circulatory system; I27.20 Pulmonary hypertension, unspecified; K31.84 Gastroparesis; Z91.19 Patient's noncompliance with other medical treatment and regimen; Z83.3 Family history of diabetes mellitus
CPT/HCPCS: 36415; 71020; 74176; 78264; 80048; 80053; 80061; 82550; 82553; 82962; 83036; 83690; 84484; 85025; 93005; 93010; 94760; 96365; 96375; 99291; A9541; J0360; J0610; J1170; J1200; J1642; J1650; J1815; J2405; J3010; J7030

== ENCOUNTER 2017-08-05 21:48 | Inpatient (IN) | payer MEDICARE ==
[2017-08-05 22:51] LABS: Basophils % (Auto) 0.3 % (0.0-1.8); Eosinophils % (Auto) 1.1 % (0.0-4.3); Hematocrit 25.2 % (30.3-42.9); Hemoglobin 8.3 gm/dl (10.1-14.3); Mean Corpuscular HGB Conc 33 % (30-34); Mean Corpuscular Hemoglobin 29 pg (28-32); Mean Corpuscular Volume 88 fl (79-97); Platelet Count 266 K/mm3 (140-440); Red Blood Count 2.85 M/mm3 (3.65-5.03); Red Cell Distribution Width 19.6 % (13.2-15.2); White Blood Count 6.8 K/mm3 (4.5-11.0)
[2017-08-05 23:03] LABS: Albumin 3.7 g/dL (3.9-5); Albumin/Globulin Ratio 0.9 %; Bilirubin,Total 0.4 mg/dL (0.1-1.2); Calcium 9.1 mg/dL (8.4-10.2); Chloride 97.5 mmol/L (98-107); Potassium 4.1 mmol/L (3.6-5.0); Total Protein 7.7 g/dL (6.3-8.2)
[2017-08-05] MEDS ORDERED: DILAUDID IV ONE (23:36)
[2017-08-05] MEDS ORDERED: ZOFRAN IV ONE (23:36)
[2017-08-05] MEDS ORDERED: BENADRYL IV ONE (23:36)
--- NOTE | 2017-08-05 23:38 | Emergency Department Report ---
ED Abdominal Pain HPI - General Chief Complaint: Abdominal Pain Stated Complaint: ABD PAIN Time Seen by Provider: 08/05/17 23:16 Source: EMS Mode of arrival: Ambulatory Limitations: No Limitations - History of Present Illness Initial Comments: 37YO FEMALE WITH H/O GASTROPERESIS HER WITH 5 HRS OF NAUSEA AND VOMITING. NO FECAL MATTER , NON BILIOUS VOMITUS Complaint: abdominal pain -: Gradual, hour(s) (5) Location: diffuse Severity scale (0 -10): 6 Quality: cramping Consistency: constant Improves With: medication Worsens With: nothing Associated Symptoms: nausea, vomiting. denies: diarrhea, fever - Related Data Home Medications Medication Instructions Recorded Confirmed Last Taken SUMAtriptan SUCCINATE [Imitrex] 50 mg PO PRN PRN 05/26/17 07/29/17 06/03/17 Previous Rx's Medication Instructions Recorded Last Taken Type Metoclopramide [Reglan TAB] 10 mg PO ACHS #40 tablet 06/21/17 Unknown Rx Cyclobenzaprine HCl [Flexeril 5 MG 10 mg PO BID PRN #20 tablet 06/27/17 Unknown Rx TAB] Dicyclomine [Bentyl] 20 mg PO QID PRN #60 capsule 06/27/17 Unknown Rx Gabapentin [Neurontin] 100 mg PO TID #90 capsule 06/27/17 Unknown Rx Labetalol HCl 300 mg PO TID #90 tablet 06/27/17 Unknown Rx Losartan [Cozaar] 100 mg PO BID #60 tablet 06/27/17 Unknown Rx NIFEdipine XL [Procardia Xl] 90 mg PO QDAY #30 tablet 06/27/17 Unknown Rx Pantoprazole [Protonix TAB] 40 mg PO BID #20 tablet 06/27/17 Unknown Rx hydrALAZINE [Apresoline TAB] 100 mg PO TID #90 tab 06/27/17 Unknown Rx Allergies Allergy/AdvReac Type Severity Reaction Status Date / Time lisinopril Allergy Shortness Verified 06/04/17 07:41 of Breath oxycodone HCl [From Percocet] Allergy Itching Verified 06/04/17 07:41 morphine AdvReac Anaphylaxis Verified 06/04/17 07:41 ED Review of Systems ROS: Stated complaint: ABD PAIN Other details as noted in HPI Constitutional: denies: chills, fever Eyes: denies: eye pain, eye discharge, vision change ENT: denies: ear pain, throat pain Respiratory: denies: cough, shortness of breath, wheezing Cardiovascular: denies: chest pain, palpitations Endocrine: no symptoms reported Gastrointestinal: abdominal pain, nausea, vomiting. denies: diarrhea Genitourinary: denies: urgency, dysuria, discharge Musculoskeletal: denies: back pain, joint swelling, arthralgia Skin: denies: rash, lesions Neurological: denies: headache, weakness, paresthesias Psychiatric: denies: anxiety, depression Hematological/Lymphatic: denies: easy bleeding, easy bruising ED Past Medical Hx - Past Medical History Previous Medical History?: No Hx Hypertension: Yes Hx CVA: No Hx Heart Attack/AMI: No Hx Congestive Heart Failure: Yes Hx Diabetes: Yes Hx Deep Vein Thrombosis: No Hx Pulmonary Embolism: No Hx GERD: No Hx Liver Disease: No Hx Renal Disease: Yes (Dialysis MWF) Hx of Cancer: No Hx Sickle Cell Disease: No Hx Arthritis: Yes Hx Headaches / Migraines: No Hx Seizures: Yes Hx Kidney Stones: No Hx Psychiatric Treatment: No Hx Asthma: Yes Hx COPD: Yes Hx Tuberculosis: No Hx Dementia: No Hx HIV: No Additional medical history: gastroparesis. Recent infection to right great toe , hospitalized at [facility]. - Surgical History Past Surgical History?: No Hx Coronary Stent: No Hx Open Heart Surgery: No Hx Pacemaker: No Hx Internal Defibrillator: No Hx Cholecystectomy: Yes (18 years ago) Hx Appendectomy: No Hx Breast Surgery: No Additional Surgical History: c section, tubal ligation. fistula right arm - Social History Smoking Status: Never Smoker Substance Use Type: None - Medications Home Medications: Home Medications Medication Instructions Recorded Confirmed Last Taken Type SUMAtriptan SUCCINATE [Imitrex] 50 mg PO PRN PRN 05/26/17 07/29/17 06/03/17 History Metoclopramide [Reglan TAB] 10 mg PO ACHS #40 tablet 06/21/17 07/29/17 Unknown Rx Cyclobenzaprine HCl [Flexeril 5 MG 10 mg PO BID PRN #20 tablet 06/27/17 Unknown Rx TAB] Dicyclomine [Bentyl] 20 mg PO QID PRN #60 capsule 06/27/17 07/29/17 Unknown Rx Gabapentin [Neurontin] 100 mg PO TID #90 capsule 06/27/17 07/29/17 Unknown Rx Labetalol HCl 300 mg PO TID #90 tablet 06/27/17 07/29/17 Unknown Rx Losartan [Cozaar] 100 mg PO BID #60 tablet 06/27/17 07/29/17 Unknown Rx NIFEdipine XL [Procardia Xl] 90 mg PO QDAY #30 tablet 06/27/17 07/29/17 Unknown Rx Pantoprazole [Protonix TAB] 40 mg PO BID #20 tablet 06/27/17 07/29/17 Unknown Rx hydrALAZINE [Apresoline TAB] 100 mg PO TID #90 tab 06/27/17 07/29/17 Unknown Rx ED Physical Exam - General Limitations: No Limitations General appearance: in distress - Head Head exam: Present: atraumatic, normocephalic - Eye Eye exam: Present: normal appearance - ENT ENT exam: Present: mucous membranes moist - Neck Neck exam: Present: normal inspection - Respiratory Respiratory exam: Present: normal lung sounds bilaterally. Absent: respiratory distress, wheezes, rales, rhonchi - Cardiovascular Cardiovascular Exam: Present: normal rhythm, tachycardia. Absent: systolic murmur, diastolic murmur, rubs, gallop - GI/Abdominal GI/Abdominal exam: Present: soft, tenderness (MINIMAL), diminished bowel sounds , hypoactive bowel sounds. Absent: guarding, rebound - Rectal Rectal exam: Present: deferred - Extremities Exam Extremities exam: Present: normal inspection - Back Exam Back exam: Present: normal inspection, full ROM - Neurological Exam Neurological exam: Present: alert, oriented X3 - Psychiatric Psychiatric exam: Present: agitated, other (YELLING AND SCREAMING TO STAFF) - Skin Skin exam: Present: warm, dry, intact, normal color. Absent: rash ED Course Vital Signs 08/05/17 22:03 Temperature 98.6 F Pulse Rate 89 Respiratory 18 Rate Blood Pressure 182/86 [Right] O2 Sat by Pulse 98 Oximetry ED Medical Decision Making - Lab Data Result diagrams: 08/05/17 22:17 08/05/17 22:17 - Radiology Data Radiology results: image reviewed (CHEST WITH FLUID CONSISTENT WITH CHF, AND LARGE AMOUNT OF STOOL IN BOWEL, NO BOWEL OBSTRUCTION, AIR PATTERN DOES NOT RESEMBLE GASTROPERESIS) Critical care attestation.: If time is entered above; I have spent that time in minutes in the direct care of this critically ill patient, excluding procedure time. ED Disposition Clinical Impression: Gastroparesis, Anemia of chronic disease Nausea & vomiting Qualifiers: Vomiting type: unspecified Vomiting Intractability: intractable Qualified Code( s): R11.2 - Nausea with vomiting, unspecified Abdominal pain Qualifiers: Abdominal location: generalized Qualified Code(s): R10.84 - Generalized abdominal pain Chronic renal failure Qualifiers: Chronic kidney disease stage: stage 5 Qualified Code(s): N18.5 - Chronic kidney disease, stage 5 Disposition: OP ADMIT IP TO THIS HOSP Is pt being admited?: Yes Does the pt Need Aspirin: No Condition: Stable Instructions: Abdominal Pain (ED) Referrals: PRIMARY CARE, [Primary Care Provider] - 3-5 Days Time of Disposition: 23:54 (SUZIE REVIEWED WITH DR BARFIELD)
[2017-08-06] MEDS ORDERED: APRESOLINE IV PRN (00:15)
[2017-08-06] MEDS ORDERED: IMITREX PO PRN (00:38)
[2017-08-06] MEDS: DILAUDID IV PRN ×2 (01:17→06:32)
[2017-08-06] MEDS ORDERED: APRESOLINE ONE (02:27)
--- NOTE | 2017-08-06 02:51 | History and Physical Report ---
History of Present Illness Date of examination: 08/06/17 Date of admission: 08/06/17 00:41 History of present illness: 37-year-old -Nepalese female with past medical history significant for hypertension, diabetes, CHF, asthma, end-stage renal disease on hemodialysis, gastroparesis, COPD on home oxygen presented to the emergency department complaining of severe abdominal pain that started yesterday after lunch. Pain is sharp, 10 out of 10 with no radiation, associated with nausea and vomiting. Patient has been admitted many times for diabetic gastroparesis. Patient noncompliant with her medications and her blood pressure was elevated. Patient said she had dialysis yesterday. On her previous discharge from the patient was told to have follow up with her Pain clinic. Patient is Complaining of generalized itching. Patient is asking for IV pain medications and benadryl. REVIEW OF SYSTEMS: GENERAL: no weight change, no fatigue, no fever HEAD: no head ache EYES: no blurry vision, no acute visual loss EARS: no hearing loss, no discharge, no earache NOSE: no stuffiness, no sneezing, no discharge MOUTH, THROAT AND NECK: no bleeding gums, no sore throat, no swollen neck CARDIAC: no palpitations, no dyspnea on exertion, no orthopnea, no PND, no edema , no chest pain RESPIRATORY: no shortness of breath, no wheeze, no cough, no sputum, no hemoptysis, no asthma GI: As stated in HPI. URINARY: no change in frequency, no urgency, no polyuria, no hematuria, no incontinence MUSCULOSKELETAL: no muscle weakness, no pain, no joint stiffness NEUROLOGIC: no loss of sensation/numbness, no tingling, no tremors, no weakness/ paralysis HEMATOLOGIC: no anemia, no easy bruising SKIN: no rashes ENDOCRINE: no heat/cold intolerance, no polyuria, no polydipsia, no thyroid problems PSYCHIATRIC: no anxiety, no depression, no suicidal ideations Past History Past Medical History: COPD, diabetes, heart failure, hypertension, renal failure Past Surgical History: Other (portcath, AVF) Social history: single, full code. denies: smoking, alcohol abuse, prescription drug abuse, IV drug use Family history: CAD, diabetes, hypertension Medications and Allergies Allergies Allergy/AdvReac Type Severity Reaction Status Date / Time lisinopril Allergy Shortness Verified 06/04/17 07:41 of Breath oxycodone HCl [From Percocet] Allergy Itching Verified 06/04/17 07:41 morphine AdvReac Anaphylaxis Verified 06/04/17 07:41 Home Medications Medication Instructions Recorded Confirmed Last Taken Type SUMAtriptan SUCCINATE [Imitrex] 50 mg PO PRN PRN 05/26/17 07/29/17 06/03/17 History Metoclopramide [Reglan TAB] 10 mg PO ACHS #40 tablet 06/21/17 07/29/17 Unknown Rx Cyclobenzaprine HCl [Flexeril 5 MG 10 mg PO BID PRN #20 tablet 06/27/17 Unknown Rx TAB] Dicyclomine [Bentyl] 20 mg PO QID PRN #60 capsule 06/27/17 07/29/17 Unknown Rx Gabapentin [Neurontin] 100 mg PO TID #90 capsule 06/27/17 07/29/17 Unknown Rx Labetalol HCl 300 mg PO TID #90 tablet 06/27/17 07/29/17 Unknown Rx Losartan [Cozaar] 100 mg PO BID #60 tablet 06/27/17 07/29/17 Unknown Rx NIFEdipine XL [Procardia Xl] 90 mg PO QDAY #30 tablet 06/27/17 07/29/17 Unknown Rx Pantoprazole [Protonix TAB] 40 mg PO BID #20 tablet 06/27/17 07/29/17 Unknown Rx hydrALAZINE [Apresoline TAB] 100 mg PO TID #90 tab 06/27/17 07/29/17 Unknown Rx Active Meds: Active Medications Cyclobenzaprine HCl (Flexeril) 10 mg PO BID PRN PRN Reason: Muscle Spasm Dicyclomine HCl (Bentyl) 20 mg PO QID PRN PRN Reason: Pain Diphenhydramine HCl (Benadryl) 50 mg IV Q6H PRN PRN Reason: Itching Gabapentin (Neurontin) 100 mg PO TID GABRIELLA Heparin Sodium (Porcine) (Heparin) 5,000 unit SUB-Q Q8HR GABRIELLA Hydralazine HCl (Apresoline) 20 mg IV Q4H PRN PRN Reason: Hypertension Last Admin: 08/06/17 02:20 Dose: 20 mg Hydralazine HCl (Apresoline) 100 mg PO TID GABRIELLA Hydromorphone HCl (Dilaudid) 2 mg IV Q4H PRN PRN Reason: Pain , Severe (7-10) Last Admin: 08/06/17 01:17 Dose: 2 mg Labetalol HCl (Normodyne) 300 mg PO TID GABRIELLA Losartan Potassium (Cozaar) 100 mg PO BID GABRIELLA Metoclopramide HCl (Reglan) 5 mg PO ACHS GABRIELLA Nifedipine (Procardia Xl) 90 mg PO QDAY GABRIELLA Pantoprazole Sodium (Protonix) 40 mg PO BID GABRIELLA Sumatriptan Succinate (Imitrex) 50 mg PO Q2H PRN PRN Reason: Migraine Headache Exam - Physical Exam Narrative exam: Not in cardiopulmonary distress. The patient appeared well nourished and normally developed. Vital signs as documented. Head exam is unremarkable. No scleral icterus . Neck is without jugular venous distension, thyromegaly, or carotid bruits. Lungs are clear to auscultation. Cardiac exam reveals regular rate and Rhythm. First and second heart sounds normal. No murmurs, rubs or gallops. Abdominal exam reveals normal bowel sounds, no masses, no organomegaly and no aortic enlargement. Extremities are nonedematous and both femoral and pedal pulses are normal. KETTLEMAN: Alert and oriented 3. No focal weakness. - Constitutional Vitals: Temp Pulse Resp BP Pulse Ox 98.7 F 104 H 20 194/89 84 08/05/17 22:03 08/06/17 02:20 08/06/17 01:47 08/06/17 02:27 08/06/17 02:27 Results - Labs CBC & Chem 7: 08/05/17 22:17 08/05/17 22:17 Labs: Laboratory Last Values WBC 6.8 K/mm3 (4.5-11.0) 08/05/17 22:17 RBC 2.85 M/mm3 (3.65-5.03) L 08/05/17 22:17 Hgb 8.3 gm/dl (10.1-14.3) L 08/05/17:17 Hct 25.2 % (30.3-42.9) L 08/05/17 22:17 MCV 88 fl (79-97) 08/05/17 22:17 MCH 29 pg (28-32) 08/05/17 22: MCHC 33 % (30-34) 08/05/17 22:17 RDW 19.6 % (13.2-15.2) H 08/05/17 22:17 Plt Count 266 K/mm3 (140-440) 08/05/17 22:17 Lymph % (Auto) 6.2 % (13.4-35.0) L 08/05/17 22:17 Osborne % (Auto) 8.6 % (0.0-7.3) H 08/05/17 22:17 Eos % (Auto) 1.1 % (0.0-4.3) 08/05/17 22:17 Baso % (Auto) 0.3 % (0.0-1.8) 08/05/17 22:17 Lymph # 0.4 K/mm3 (1.2-5.4) L 08/05/17:17 Osborne # 0.6 K/mm3 (0.0-0.8) 08/05/17 22:17 Eos # 0.1 K/mm3 (0.0-0.4) 08/05/17:17 Baso # 0.0 K/mm3 (0.0-0.1) 08/05/17 22:17 Seg Neutrophils % 83.8 % (40.0-70.0) H 08/05/17 22:17 Seg Neutrophils # 5.7 K/mm3 (1.8-7.7) 08/05/17 22:17 Sodium 139 mmol/L (137-145) 08/05/17 22:17 Potassium 4.1 mmol/L (3.6-5.0) 08/05/17 22:17 Chloride 97.5 mmol/L (98-107) L 08/05/17 22:17 Carbon Dioxide 27 mmol/L (22-30) 08/05/17 22:17 Anion Gap 19 mmol/L 08/05/17 22:17 BUN 18 mg/dL (7-17) H 08/05/17 22:17 Creatinine 3.7 mg/dL (0.7-1.2) H 08/05/17 22:17 Estimated GFR 17 ml/min 08/05/17 22:17 BUN/Creatinine Ratio 5 % 08/05/17 22:17 Glucose 145 mg/dL (65-100) H 08/05/17 22:17 Calcium 9.1 mg/dL (8.4-10.2) 08/05/17 22:17 Total Bilirubin 0.40 mg/dL (0.1-1.2) 08/05/17 22:17 AST 20 units/L (5-40) 08/05/17 22:17 ALT 16 units/L (7-56) 08/05/17 22: Alkaline Phosphatase 111 units/L (35-129) 08/05/17 22: Total Protein 7.7 g/dL (6.3-8.2) 08/05/17 22: Albumin 3.7 g/dL (3.9-5) L 08/05/17 22:17 Albumin/Globulin Ratio 0.9 % 08/05/17 22: Lipase 37 units/L (13-60) 08/05/17 22:17 HCG, Qual Negative (Negative) 08/05/17 00:02 Assessment and Plan Assessment and plan: Diabetic gastroparesis, unable to keep anything down Hypertensive urgency ESRD on HD COPD on home o2 Chronic hypoxic respiratory failure - Pain control - Resume home Medications - Nephrology consulted DVT prophylaxis - Heparin Disposition - Admit to medical floor Advance Directives: Yes VTE prophylaxis?: Chemical Plan of care discussed with patient/family: Yes
[2017-08-06] MEDS ORDERED: D50W (25GM) Vial IV PRN (02:58)
[2017-08-06] MEDS: HEPARIN SUB-Q SCH ×3 (06:04→21:53)
[2017-08-06] MEDS: BENADRYL IV PRN ×2 (06:32→18:51)
[2017-08-06] MEDS: NOVOLOG SUB-Q SCH ×3 (07:30→23:13)
[2017-08-06] MEDS: NORMODYNE PO SCH ×3 (08:00→20:29)
[2017-08-06 08:58] LABS: Basophils % (Auto) 0.2 % (0.0-1.8); Eosinophils % (Auto) 0.1 % (0.0-4.3); Hemoglobin 8.8 gm/dl (10.1-14.3); Mean Corpuscular HGB Conc 32 % (30-34); Mean Corpuscular Hemoglobin 29 pg (28-32); Mean Corpuscular Volume 91 fl (79-97); Platelet Count 275 K/mm3 (140-440); Red Blood Count 3.08 M/mm3 (3.65-5.03); White Blood Count 13.8 K/mm3 (4.5-11.0)
[2017-08-06 09:02] LABS: Red Cell Distribution Width 20.1 % (13.2-15.2)
[2017-08-06 09:08] LABS: Chloride 95.1 mmol/L (98-107); Potassium 5.5 mmol/L (3.6-5.0)
[2017-08-06] MEDS ORDERED: HEPARIN 10,000 UNITS/10 ML IV PRN (09:17)
[2017-08-06] MEDS ORDERED: NACL 0.9% 100 ML IV PRN (09:17)
[2017-08-06] MEDS ORDERED: PROCRIT IV PRN (09:17)
--- NOTE | 2017-08-06 09:18 | XRay Report ---
ABDOMINAL SERIES WITH CXR THREE VIEWS: 08/05/17 21:48:00 CLINICAL: Nausea and vomiting. FINDINGS: Supine upright views demonstrate a normal bowel gas pattern with a large volume of stool throughout the colon and in the rectum.. No distended bowel or air-fluid levels. No pneumoperitoneum. Surgical clips in the right upper quadrant and a suture line in the upper mid abdomen. Status post bilateral tubal obliteration. No mass or suspicious calcifications.Right hip fixation nails.The chest is significant for cardiac enlargement, central vascular congestion, bilateral reticular interstitial lung opacities and right basal patchy and confluent alveolar lung opacities.A right [id number] tip is in the right atrium. IMPRESSION: Negative abdomen with a large volume of stool. Probable congestive heart failure with multilobar interstitial pulmonary edema and right middle lobe alveolar pulmonary edema. Pneumonia cannot be excluded.
--- NOTE | 2017-08-06 09:41 | Consultation ---
History of Present Illness - Reason for Consult Consult date: 08/06/17 end stage renal disease Requesting physician: HEYDI SAVAGE - History of Present Illness 37-year-old lady with a history of type 2 diabetes mellitus, hypertension, complicated by end-stage renal disease on hemodialysis on a Tuesday, Tuesday and Tuesday [place] [facility] Patient has had numerous hospitalizations on account of gastroparesis exacerbations, Accelerated hypertension and fluid overload. Presents now because of refractory nausea or vomiting. Patient was not talking when I went to the room. She would not respond to my questions. She is otherwise awake and alert. She has an emesis bag by her. There is no vomitus in the bag. Past History Past Medical History: diabetes, heart failure, hypertension, renal failure, other (diabetic gastroparesis) Past Surgical History: cholecystectomy, Other (portcath, left upper extremity is the fistula, right upper extremity AV graft, permacath placements, bilateral tubal ligation, laser photocoagulation of the retina) Social history: single, lives with family (with Robertson 3 children. 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 denies: smoking, alcohol abuse, prescription drug abuse, IV drug use Family history: CAD (father of myocardial infarction at age 56), cancer ( mother had lung cancer but is alive), diabetes (Diabetes mellitus in both parents), hypertension (hypertension in both parents) Medications and Allergies Allergies Allergy/AdvReac Type Severity Reaction Status Date / Time lisinopril Allergy Shortness Verified 06/04/17 07:41 of Breath oxycodone HCl [From Percocet] Allergy Itching Verified 06/04/17 07:41 morphine AdvReac Anaphylaxis Verified 06/04/17 07:41 Home Medications Medication Instructions Recorded Confirmed Last Taken Type SUMAtriptan SUCCINATE [Imitrex] 50 mg PO PRN PRN 05/26/17 07/29/17 06/03/17 History Metoclopramide [Reglan TAB] 10 mg PO ACHS #40 tablet 06/21/17 07/29/17 Unknown Rx Cyclobenzaprine HCl [Flexeril 5 MG 10 mg PO BID PRN #20 tablet 06/27/17 Unknown Rx TAB] Dicyclomine [Bentyl] 20 mg PO QID PRN #60 capsule 06/27/17 07/29/17 Unknown Rx Gabapentin [Neurontin] 100 mg PO TID #90 capsule 06/27/17 07/29/17 Unknown Rx Labetalol HCl 300 mg PO TID #90 tablet 06/27/17 07/29/17 Unknown Rx Losartan [Cozaar] 100 mg PO BID #60 tablet 06/27/17 07/29/17 Unknown Rx NIFEdipine XL [Procardia Xl] 90 mg PO QDAY #30 tablet 06/27/17 07/29/17 Unknown Rx Pantoprazole [Protonix TAB] 40 mg PO BID #20 tablet 06/27/17 07/29/17 Unknown Rx hydrALAZINE [Apresoline TAB] 100 mg PO TID #90 tab 06/27/17 07/29/17 Unknown Rx Active Meds: Active Medications Acetaminophen (Tylenol) 650 mg PO Q6H PRN PRN Reason: Pain, Mild (1-3) Cyclobenzaprine HCl (Flexeril) 10 mg PO BID PRN PRN Reason: Muscle Spasm Dextrose (D50w (25gm) Vial) 50 gm IV PRN PRN PRN Reason: Hypoglycemia Dicyclomine HCl (Bentyl) 20 mg PO QID PRN PRN Reason: Pain Diphenhydramine HCl (Benadryl) 50 mg IV Q6H PRN PRN Reason: Itching Last Admin: 08/06/17 06:32 Dose: 50 mg Epoetin Armando (Procrit) 10,000 unit IV CELENA PRN PRN Reason: hemodialysis Gabapentin (Neurontin) 100 mg PO TID [facility] Heparin Sodium (Porcine) (Heparin) 5,000 unit SUB-Q Q8HR [facility] Last Admin: 08/06/17 06:04 Dose: 5,000 unit Heparin Sodium (Porcine) (Heparin 10,000 Units/10 Ml) 1,000 unit IV CELENA PRN PRN Reason: hemodialysis Hydralazine HCl (Apresoline) 20 mg IV Q4H PRN PRN Reason: Hypertension Last Admin: 08/06/17 02:20 Dose: 20 mg Hydralazine HCl (Apresoline) 100 mg PO TID [facility] Sodium Chloride (Nacl 0.9%) 100 mls @ 999 mls/hr IV CELENA PRN PRN Reason: Hypotension Insulin Aspart (Novolog) 0 units SUB-Q ACHS GABRIELLA PRN Reason: Protocol Labetalol HCl (Normodyne) 300 mg PO TID GABRIELLA Losartan Potassium (Cozaar) 100 mg PO BID GABRIELLA Metoclopramide HCl (Reglan) 5 mg PO ACHS GABRIELLA Nifedipine (Procardia Xl) 90 mg PO QDAY GABRIELLA Pantoprazole Sodium (Protonix) 40 mg PO BID GABRIELLA Sumatriptan Succinate (Imitrex) 50 mg PO Q2H PRN PRN Reason: Migraine Headache Review of Systems ROS unobtainable: due to mental status (patient refusing to answer questions) Exam - Vital Signs Vital signs: Vital Signs Temp Pulse Resp BP Pulse Ox 98.7 F 87 18 182/86 99 08/05/17 22:03 08/05/17 22:03 08/05/17 22:03 08/05/17 22:03 08/05/17 22:03 - Physical Exam Narrative exam: Younger -Malawian female lying in bed in no acute distress HEENT: NCAT, pink oral mucous membrane Neck: Supple, no venous distention CVS: S1S2 RRR with no murmur, rub or gallop Chest: Clear to auscultation, good chest expansion Abdomen: Protuberant, soft, mild epigastric tenderness, no organomegaly, bowel sounds are present Extremities: No edema, no clubbing Neuro: Awake, alert no focal deficits Results - Lab Results 08/06/17 08:35 08/06/17 08:35 Most recent lab results Calcium 9.0 mg/dL (8.4-10.2) 08/06/17 08:35 Assessment and Plan - Patient Problems (1) Nausea & vomiting Current Visit: Yes Status: Acute Qualifiers: Vomiting type: unspecified Vomiting Intractability: intractable Qualified Code(s): R11.2 - Nausea with vomiting, unspecified Plan to address problem: Presumably secondary to gastroparesis. Continue management (2) Anemia in chronic kidney disease Current Visit: No Status: Acute Qualifiers: Chronic kidney disease stage: unspecified stage Qualified Code(s): N18.9 - Chronic kidney disease, unspecified; D63.1 - Anemia in chronic kidney disease Plan to address problem: Give Erythropoetin known dialysis (3) End-stage renal disease Current Visit: No Status: Acute Plan to address problem: Hemodialysis this morning for surgical clearance and fluid removal. (4) Gastroparesis due to DM Current Visit: No Status: Acute Plan to address problem: Continue antiemetics and other treatment. (5) Hypertensive chronic kidney disease with stage 5 chronic kidney disease or end stage renal disease Current Visit: No Status: Chronic Plan to address problem: Blood pressure which was high on presentation has improved. Continue to monitor blood pressure (6) Type 2 diabetes mellitus with diabetic chronic kidney disease Current Visit: No Status: Acute Qualifiers: Diabetes mellitus prison insulin use: D Chronic kidney disease stage: C Plan to address problem: Blood sugar management by primary attending
[2017-08-06] MEDS ORDERED: NACL 0.9 (PRIMING MACHINE ONLY DIALYSIS) MC ONE (13:23)
[2017-08-06] MEDS ORDERED: PROCRIT ONE (13:44)
[2017-08-06] MEDS: REGLAN PO SCH ×3 (18:48→21:47)
[2017-08-06] MEDS: APRESOLINE PO SCH ×2 (18:49→20:30)
[2017-08-06] MEDS: NEURONTIN PO SCH ×2 (18:49→20:30)
[2017-08-06] MEDS: TYLENOL PO PRN (18:51)
[2017-08-06] MEDS: COZAAR PO SCH (21:49)
[2017-08-06] MEDS: PROTONIX PO SCH (21:52)
[2017-08-06] MEDS: BENTYL PO PRN (23:03)
[2017-08-07] MEDS: BENADRYL IV PRN ×4 (00:55→23:00)
[2017-08-07] MEDS: TYLENOL PO PRN ×4 (01:32→23:00)
[2017-08-07] MEDS: FLEXERIL PO PRN ×2 (03:08→17:06)
[2017-08-07] MEDS: HEPARIN SUB-Q SCH ×3 (06:14→22:30)
[2017-08-07] MEDS: REGLAN PO SCH ×4 (06:41→21:59)
[2017-08-07] MEDS: NOVOLOG SUB-Q SCH ×4 (07:30→22:00)
[2017-08-07] MEDS: NORMODYNE PO SCH ×3 (08:59→22:01)
[2017-08-07] MEDS: PROCARDIA XL PO SCH (09:00)
[2017-08-07] MEDS: PROTONIX PO SCH ×3 (09:01→22:30)
[2017-08-07] MEDS: COZAAR PO SCH ×3 (09:04→23:00)
[2017-08-07] MEDS: APRESOLINE PO SCH ×3 (09:05→23:00)
[2017-08-07] MEDS: NEURONTIN PO SCH ×3 (09:05→21:59)
[2017-08-07] MEDS: BENTYL PO PRN (11:06)
--- NOTE | 2017-08-07 15:51 | Progress Note ---
Assessment and Plan - Patient Problems (1) Nausea & vomiting Current Visit: Yes Status: Acute Qualifiers: Vomiting type: unspecified Vomiting Intractability: intractable Qualified Code(s): R11.2 - Nausea with vomiting, unspecified Plan to address problem: Presumably secondary to gastroparesis. Appears to be improving. Continue management (2) Anemia in chronic kidney disease Current Visit: No Status: Acute Qualifiers: Chronic kidney disease stage: unspecified stage Qualified Code(s): N18.9 - Chronic kidney disease, unspecified; D63.1 - Anemia in chronic kidney disease Plan to address problem: Give Erythropoetin on dialysis (3) End-stage renal disease Current Visit: No Status: Acute Plan to address problem: Hemodialysis in the morning. (4) Gastroparesis due to DM Current Visit: No Status: Acute Plan to address problem: Continue antiemetics and other treatment. (5) Hypertensive chronic kidney disease with stage 5 chronic kidney disease or end stage renal disease Current Visit: No Status: Chronic Plan to address problem: Blood pressure which was high on presentation has improved. Continue to monitor blood pressure (6) Type 2 diabetes mellitus with diabetic chronic kidney disease Current Visit: No Status: Acute Qualifiers: Diabetes mellitus [facility] insulin use: D Chronic kidney disease stage: C Plan to address problem: Blood sugar management by primary attending Subjective Date of service: 08/07/17 Principal diagnosis: End stage renal disease Interval history: Patient seen lying in bed. She has no complaints. She was sleeping when I walked in Objective - Exam Narrative Exam: Younger -Mozambican female lying in bed in no acute distress HEENT: NCAT, pink oral mucous membrane Neck: Supple, no venous distention CVS: S1S2 RRR with no murmur, rub or gallop Chest: Clear to auscultation, good chest expansion Abdomen: Protuberant, soft, mild epigastric tenderness, no organomegaly, bowel sounds are present Extremities: No edema, no clubbing Neuro: Awake, alert no focal deficits - Vital Signs Vital signs: Vital Signs - 12hr 08/07/17 08/07/17 08/07/17 08:00 08:59 09:04 Temperature 98.0 F Pulse Rate 95 H 95 H 95 H Respiratory 20 Rate Respiratory Rate [ epigastric] Blood Pressure 201/101 201/101 Blood Pressure 201/101 [Right] O2 Sat by Pulse 100 Oximetry 08/07/17 08/07/17 08/07/17 10:00 11:07 12:00 Temperature 98.0 F Pulse Rate 20 L Respiratory 16 16 20 Rate Respiratory 16 Rate [ epigastric] Blood Pressure Blood Pressure 142/65 [Right] O2 Sat by Pulse 100 Oximetry - Lab 08/06/17 08:35 08/06/17 08:35 Most recent lab results Calcium 9.0 mg/dL (8.4-10.2) 08/06/17 08:35
--- NOTE | 2017-08-07 16:29 | Progress Note ---
Assessment and Plan Assessment and plan: 37 years old female we ESRD on HD, hypertension, pulmonary hypertension, diabetes, noncompliance and drug seeking behavior, with frequent hospitalizations, presented for abdominal pain, 3rd time in the last 2 weeks. NM gastric empthying study was performed last week and was normal; antihypertensive regimen adjusted and BP well controlled while in hospital 1. Abdominal pain Recent multiple CT abdomen/pelvis with no acute findings Lipase within normal limits Dilaudid discontinued Monitor 2. ESRD on HD Dr. Trevino consulted and HD resumed 3. Hyperkalemia Medically treated, then under went dialysis Recheck 4. Anemia of ESRD Epogen with HD 5. Uncontrolled hypertension Most likely secondary to noncompliance I adjusted her antihypertensive regimen during her previous admission about 10 days ago and BP was well-controlled; at that time I discontinued clonidine to avoid rebound hypertension PO antihypertensives resumed - hydralazine, nifedipine, labetalol and losartan HD with UF Monitor BP 5. Fluid overload HD with UF per nephrology 6. Diabetes/neuropathy A1c 4.8, BS in 100s Gastric empty study normal SSI based on Accu-Cheks/Gabapentin 7. Noncompliance Extensively counseled during each hospitalization Continues to have drug-seeking behavior 8. DVT prophylaxis History Interval history: resting quietly, as soon as she realizes someone is in the room start c/o pain Hospitalist Physical - Constitutional Vitals: Temp Pulse Resp BP Pulse Ox 98.0 F 20 L 20 142/65 100 08/07/17 12:00 08/07/17 12:00 08/07/17 12:00 08/07/17 12:00 08/07/17 12:00 General appearance: Present: no acute distress - EENT ENT: clear oral mucosa, poor dentition - Neck Neck: Present: supple, normal ROM. Absent: masses or JVD - Respiratory Respiratory effort: normal Respiratory: bilateral: CTA, negative: rhonchi, wheezing - Cardiovascular Rhythm: regular Heart Sounds: Present: S1 & S2. Absent: systolic murmur - Extremities Extremities: no ischemia - Abdominal General gastrointestinal: soft, non-tender, non-distended, normal bowel sounds - Psychiatric Psychiatric: no intact judgment & insight - Neurologic Neurologic: no focal deficits Results - Labs CBC & Chem 7: 08/06/17 08:35 08/06/17 08:35 Labs: Laboratory Last Values WBC 13.8 K/mm3 (4.5-11.0) H 08/06/17 08:35 RBC 3.08 M/mm3 (3.65-5.03) L 08/06/17 08:35 Hgb 8.8 gm/dl (10.1-14.3) L 08/06/17 08:35 Hct 28.0 % (30.3-42.9) L 08/06/17 08:35 MCV 91 fl (79-97) 08/06/17 08:35 MCH 29 pg (28-32) 08/06/17 08:35 MCHC 32 % (30-34) 08/06/17 08:35 RDW 20.1 % (13.2-15.2) H 08/06/17 08:35 Plt Count 275 K/mm3 (140-440) 08/06/17 08:35 Lymph % (Auto) 3.2 % (13.4-35.0) L 08/06/17 08:35 [place] % (Auto) 8.6 % (0.0-7.3) H 08/06/17 08:35 Eos % (Auto) 0.1 % (0.0-4.3) 08/06/17 08:35 Baso % (Auto) 0.2 % (0.0-1.8) 08/06/17 08:35 Lymph # 0.4 K/mm3 (1.2-5.4) L 08/06/17 08:35 [place] # 1.2 K/mm3 (0.0-0.8) H 08/06/17 08:35 Eos # 0.0 K/mm3 (0.0-0.4) 08/06/17 08:35 Baso # 0.0 K/mm3 (0.0-0.1) 08/06/17 08:35 Seg Neutrophils % 87.9 % (40.0-70.0) H 08/06/17 08:35 Seg Neutrophils # 12.1 K/mm3 (1.8-7.7) H 08/06/17 08:35 Sodium 139 mmol/L (137-145) 08/06/17 08:35 Potassium 5.5 mmol/L (3.6-5.0) H D 08/06/17 08:35 Chloride 95.1 mmol/L (98-107) L 08/06/17 08:35 Carbon Dioxide 20 mmol/L (22-30) L D 08/06/17 08:35 Anion Gap 29 mmol/L 08/06/17 08:35 BUN 26 mg/dL (7-17) H 08/06/17 08:35 Creatinine 4.6 mg/dL (0.7-1.2) H 08/06/17 08:35 Estimated GFR 13 ml/min 08/06/17 08:35 BUN/Creatinine Ratio 6 % 08/06/17 08:35 Glucose 132 mg/dL (65-100) H 08/06/17 08:35 POC Glucose 110 (70-105) H 08/07/17 12:30 Calcium 9.0 mg/dL (8.4-10.2) 08/06/17 08:35 Total Bilirubin 0.40 mg/dL (0.1-1.2) 08/05/17 22:17 AST 20 units/L (5-40) 08/05/17 22:17 ALT 16 units/L (7-56) 08/05/17 22:17 Alkaline Phosphatase 111 units/L (35-129) 08/05/17 22:17 Total Protein 7.7 g/dL (6.3-8.2) 08/05/17 22:17 Albumin 3.7 g/dL (3.9-5) L 08/05/17 22:17 Albumin/Globulin Ratio 0.9 % 08/05/17 22:17 Lipase 37 units/L (13-60) 08/05/17 22:17 HCG, Qual Negative (Negative) 08/05/17 00:02
[2017-08-07 17:30] LABS: Calcium 8.9 mg/dL (8.4-10.2); Chloride 95.4 mmol/L (98-107); Potassium 4.5 mmol/L (3.6-5.0)
[2017-08-08] MEDS: TYLENOL PO PRN ×4 (05:00→22:01)
[2017-08-08] MEDS: BENADRYL IV PRN ×4 (05:00→22:02)
[2017-08-08] MEDS: HEPARIN SUB-Q SCH ×2 (06:09→18:06)
[2017-08-08] MEDS: FLEXERIL PO PRN ×3 (06:53→22:02)
--- NOTE | 2017-08-08 08:44 | Progress Note ---
Assessment and Plan - Patient Problems (1) Nausea & vomiting Current Visit: Yes Status: Acute Qualifiers: Vomiting type: unspecified Vomiting Intractability: intractable Qualified Code(s): R11.2 - Nausea with vomiting, unspecified Plan to address problem: Presumably secondary to gastroparesis. Appears to be improving. Continue management (2) Anemia in chronic kidney disease Current Visit: No Status: Acute Qualifiers: Chronic kidney disease stage: unspecified stage Qualified Code(s): N18.9 - Chronic kidney disease, unspecified; D63.1 - Anemia in chronic kidney disease Plan to address problem: Give Erythropoetin on dialysis (3) End-stage renal disease Current Visit: No Status: Acute Plan to address problem: Hemodialysis this morning. (4) Gastroparesis due to DM Current Visit: No Status: Acute Plan to address problem: Continue antiemetics and other treatment per Hospitalist. (5) Hypertensive chronic kidney disease with stage 5 chronic kidney disease or end stage renal disease Current Visit: No Status: Chronic Plan to address problem: Blood pressure which was high on presentation had improved this now high again probably secondary to pain. Continue to monitor blood pressure on current medications. Hopefully improves with pain control (6) Type 2 diabetes mellitus with diabetic chronic kidney disease Current Visit: No Status: Acute Qualifiers: Diabetes mellitus skilled nursing insulin use: D Chronic kidney disease stage: C Plan to address problem: Blood sugar management by primary attending Subjective Date of service: 08/08/17 Principal diagnosis: End stage renal disease Interval history: Patient seen lying in bed. Patient sitting up in bed. States she was in pain all night. Complains of nausea and vomiting through the night. I do not see any emesis bowl or bag at bedside Objective - Exam Narrative Exam: Younger -Swedish female lying in bed in no acute distress HEENT: NCAT, pink oral mucous membrane Neck: Supple, no venous distention CVS: S1S2 RRR with no murmur, rub or gallop Chest: Clear to auscultation, good chest expansion Abdomen: Protuberant, soft, mild epigastric tenderness, no organomegaly, bowel sounds are present Extremities: No edema, no clubbing Neuro: Awake, alert no focal deficits - Vital Signs Vital signs: Vital Signs - 12hr 08/07/17 08/07/17 08/07/17 21:53 22:00 22:01 Temperature 98.1 F Pulse Rate 85 85 85 Respiratory 20 Rate Blood Pressure 163/85 163/85 Blood Pressure 163/85 [Right] O2 Sat by Pulse Oximetry 08/07/17 08/08/17 23:00 01:18 Temperature 97.5 F L Pulse Rate 85 77 Respiratory 18 Rate Blood Pressure 163/85 Blood Pressure 151/76 [Right] O2 Sat by Pulse 100 Oximetry - Lab 08/06/17 08:35 08/07/17 17:00 Most recent lab results Calcium 8.9 mg/dL (8.4-10.2) 08/07/17 17:00
[2017-08-08] MEDS: NOVOLOG SUB-Q SCH ×4 (08:50→22:00)
[2017-08-08] MEDS: APRESOLINE PO SCH ×3 (09:35→20:42)
[2017-08-08] MEDS: PROCARDIA XL PO SCH ×2 (09:36→15:17)
[2017-08-08] MEDS: PROTONIX PO SCH ×2 (09:36→22:03)
[2017-08-08] MEDS: NORMODYNE PO SCH ×3 (09:36→20:42)
[2017-08-08] MEDS: NEURONTIN PO SCH ×3 (09:36→20:42)
[2017-08-08] MEDS: COZAAR PO SCH ×3 (09:36→22:02)
[2017-08-08] MEDS: REGLAN PO SCH ×4 (09:36→22:02)
[2017-08-08] MEDS ORDERED: NACL 0.9 (PRIMING MACHINE ONLY DIALYSIS) MC ONE (10:04)
--- NOTE | 2017-08-08 18:14 | Progress Note ---
Assessment and Plan Assessment and plan: 37 years old female we ESRD on HD, hypertension, pulmonary hypertension, diabetes, noncompliance and drug seeking behavior, with frequent hospitalizations, presented for abdominal pain, 3rd time in the last 2 weeks. NM gastric empthying study was performed last week and was normal; antihypertensive regimen adjusted and BP well controlled while in hospital 1. Abdominal pain Recent multiple CT abdomen/pelvis with no acute findings Lipase within normal limits Dilaudid discontinued Monitor 2. ESRD on HD Dr. Trevino consulted and HD resumed 3. Hyperkalemia Medically treated, then under went dialysis Recheck 4. Anemia of ESRD Epogen with HD 5. Uncontrolled hypertension Most likely secondary to noncompliance I adjusted her antihypertensive regimen during her previous admission about 10 days ago and BP was well-controlled; at that time I discontinued clonidine to avoid rebound hypertension PO antihypertensives resumed - hydralazine, nifedipine, labetalol and losartan HD with UF Monitor BP 5. Fluid overload HD with UF per nephrology 6. Diabetes/neuropathy A1c 4.8, BS in 100s Gastric empty study normal SSI based on Accu-Cheks/Gabapentin 7. Noncompliance Extensively counseled during each hospitalization Continues to have drug-seeking behavior 8. DVT prophylaxis Hospitalist Physical - Constitutional Vitals: Temp Pulse Resp BP Pulse Ox 98.3 F 84 18 182/82 97 08/08/17 16:30 08/08/17 16:30 08/08/17 16:30 08/08/17 17:29 08/08/17 08:00 General appearance: Present: no acute distress Results - Labs CBC & Chem 7: 08/06/17 08:35 08/07/17 17:00 Labs: Laboratory Last Values WBC 13.8 K/mm3 (4.5-11.0) H 08/06/17 08:35 RBC 3.08 M/mm3 (3.65-5.03) L 08/06/17 08:35 Hgb 8.8 gm/dl (10.1-14.3) L 08/06/17 08:35 Hct 28.0 % (30.3-42.9) L 08/06/17 08:35 MCV 91 fl (79-97) 08/06/17 08:35 MCH 29 pg (28-32) 08/06/17 08:35 MCHC 32 % (30-34) 08/06/17 08:35 RDW 20.1 % (13.2-15.2) H 08/06/17 08:35 Plt Count 275 K/mm3 (140-440) 08/06/17 08:35 Lymph % (Auto) 3.2 % (13.4-35.0) L 08/06/17 08:35 [place] % (Auto) 8.6 % (0.0-7.3) H 08/06/17 08:35 Eos % (Auto) 0.1 % (0.0-4.3) 08/06/17 08:35 Baso % (Auto) 0.2 % (0.0-1.8) 08/06/17 08:35 Lymph # 0.4 K/mm3 (1.2-5.4) L 08/06/17 08:35 [place] # 1.2 K/mm3 (0.0-0.8) H 08/06/17 08:35 Eos # 0.0 K/mm3 (0.0-0.4) 08/06/17 08:35 Baso # 0.0 K/mm3 (0.0-0.1) 08/06/17 08:35 Seg Neutrophils % 87.9 % (40.0-70.0) H 08/06/17 08:35 Seg Neutrophils # 12.1 K/mm3 (1.8-7.7) H 08/06/17 08:35 Sodium 140 mmol/L (137-145) 08/07/17 17:00 Potassium 4.5 mmol/L (3.6-5.0) 08/07/17 17:00 Chloride 95.4 mmol/L (98-107) L 08/07/17 17:00 Carbon Dioxide 27 mmol/L (22-30) D 08/07/17 17:00 Anion Gap 22 mmol/L 08/07/17 17:00 BUN 31 mg/dL (7-17) H 08/07/17 17:00 Creatinine 4.5 mg/dL (0.7-1.2) H 08/07/17 17:00 Estimated GFR 13 ml/min 08/07/17 17:00 BUN/Creatinine Ratio 7 % 08/07/17 17:00 Glucose 107 mg/dL (65-100) H 08/07/17 17:00 POC Glucose 152 (70-105) H 08/08/17 06:31 Calcium 8.9 mg/dL (8.4-10.2) 08/07/17 17:00 Total Bilirubin 0.40 mg/dL (0.1-1.2) 08/05/17 22:17 AST 20 units/L (5-40) 08/05/17 22:17 ALT 16 units/L (7-56) 08/05/17 22:17 Alkaline Phosphatase 111 units/L (35-129) 08/05/17 22:17 Total Protein 7.7 g/dL (6.3-8.2) 08/05/17 22:17 Albumin 3.7 g/dL (3.9-5) L 08/05/17 22:17 Albumin/Globulin Ratio 0.9 % 08/05/17 22:17 Lipase 37 units/L (13-60) 08/05/17 22:17 HCG, Qual Negative (Negative) 08/05/17 00:02
[2017-08-09] MEDS: TYLENOL PO PRN ×2 (04:31→11:04)
[2017-08-09] MEDS: BENADRYL IV PRN ×2 (04:33→11:04)
--- NOTE | 2017-08-09 09:40 | Discharge Summary ---
Providers - Providers Date of Admission: 08/06/17 00:41 Date of discharge: 08/09/17 Attending physician: KIA CERDA 08/06/17 00:44 Consult to Physician [CONS] Routine Consulting Provider: GAURAV DURBIN Reason For Exam: ESRD on HD Place consult to:: coral Notified:: yes If yes, spoke with:: [place] Time called:: 09:00 Primary care physician: [employer] Hospitalization Condition: Stable Disposition: DC-01 TO HOME OR SELFCARE Time spent for discharge: 35 min Exam - Constitutional Vitals: Temp Pulse Resp BP Pulse Ox 98.3 F 80 16 148/77 97 08/09/17 08:35 08/09/17 08:35 08/09/17 08:35 08/09/17 08:35 08/09/17 08:35 Plan Activity: advance as tolerated Diet: low cholesterol, low salt Additional Instructions: F/u with your shop assistant and resume outpatient dialysis Follow up with: PRIMARY CAREMD [Primary Care Provider] - 3-5 Days
[2017-08-09] MEDS: NOVOLOG SUB-Q SCH (10:29)
[2017-08-09] MEDS: PROCARDIA XL PO SCH (10:54)
[2017-08-09] MEDS: REGLAN PO SCH (10:54)
[2017-08-09] MEDS: COZAAR PO SCH (10:54)
[2017-08-09] MEDS: NEURONTIN PO SCH (10:55)
[2017-08-09] MEDS: NORMODYNE PO SCH (10:55)
[2017-08-09] MEDS: PROTONIX PO SCH (10:55)
[2017-08-09] MEDS: APRESOLINE PO SCH (10:55)
[2017-08-09] MEDS ORDERED: FLUSH HEPARIN IV ONE (12:08)
[2017-08-09] MEDS ORDERED: TRIPLE ANTIBIOTIC TP ONE (12:08)
[2017-08-09 12:32] VITALS: BP 160/73
== END 2017-08-09 14:00 | disposition home or self-care (01) | DRG 73 ==
LOC: ED 21:48 → 3A 08-06 00:41
PROVIDERS: ADMIT Internal Medicine; ATTEND Internal Medicine
PROC: 5A1D70Z Performance of Urinary Filtration, Intermittent, Less than 6 Hours Per Day (ICD-10-PCS; 2017-08-06)
PROC: 5A1D70Z Performance of Urinary Filtration, Intermittent, Less than 6 Hours Per Day (ICD-10-PCS; principal; 2017-08-08)
DX: E11.43 Type 2 diabetes mellitus with diabetic autonomic (poly)neuropathy (principal); N18.6 End stage renal disease; I13.2 Hypertensive heart and chronic kidney disease with heart failure and with stage 5 chronic kidney disease, or end stage renal disease; J96.11 Chronic respiratory failure with hypoxia; K31.84 Gastroparesis; J44.9 Chronic obstructive pulmonary disease, unspecified; I16.0 Hypertensive urgency; D63.1 Anemia in chronic kidney disease; E11.40 Type 2 diabetes mellitus with diabetic neuropathy, unspecified; E87.5 Hyperkalemia; I50.9 Heart failure, unspecified; E11.22 Type 2 diabetes mellitus with diabetic chronic kidney disease; M19.90 Unspecified osteoarthritis, unspecified site; Z98.51 Tubal ligation status; Z83.3 Family history of diabetes mellitus; Z88.6 Allergy status to analgesic agent; Z88.5 Allergy status to narcotic agent; Z88.8 Allergy status to other drugs, medicaments and biological substances; Z90.49 Acquired absence of other specified parts of digestive tract
CPT/HCPCS: 36415; 74022; 80048; 80053; 82962; 83690; 84703; 85025; 96374; 96375; A6250; J0360; J0885; J1170; J1200; J1642; J1644; J1815; J2405; J7030

== ENCOUNTER 2017-08-14 23:19 | Emergency (ER) | payer MEDICARE ==
[2017-08-15 01:18] LABS: Calcium 9.6 mg/dL (8.4-10.2); Chloride 91.4 mmol/L (98-107); Potassium 4.6 mmol/L (3.6-5.0)
[2017-08-15 01:33] LABS: Basophils % (Auto) 0.6 % (0.0-1.8); Hematocrit 30.8 % (30.3-42.9); Hemoglobin 10.4 gm/dl (10.1-14.3); Mean Corpuscular HGB Conc 34 % (30-34); Mean Corpuscular Hemoglobin 30 pg (28-32); Mean Corpuscular Volume 89 fl (79-97); Platelet Count 280 K/mm3 (140-440); Red Blood Count 3.48 M/mm3 (3.65-5.03); White Blood Count 7.7 K/mm3 (4.5-11.0)
[2017-08-15 01:38] LABS: Red Cell Distribution Width 21.4 % (13.2-15.2)
[2017-08-15] MEDS ORDERED: ZOFRAN IV ONE ×2 (03:00→05:02)
[2017-08-15] MEDS ORDERED: BENADRYL IV ONE ×2 (03:00→05:02)
[2017-08-15] MEDS ORDERED: DILAUDID IV ONE ×2 (03:00→05:02)
--- NOTE | 2017-08-15 03:00 | Emergency Department Report ---
ED Chest Pain HPI - General Chief Complaint: Chest Pain Stated Complaint: ABDOMINAL PAIN,CHEST PAIN,TOBIAS Time Seen by Provider: 08/15/17 02:56 Source: patient Mode of arrival: Ambulatory Limitations: No Limitations - History of Present Illness Initial Comments: 37 yo female her with complaints of abdominal pain ,nausea, vomiting. pt has h/ o Gastroperesis and renal failure, CHF,HTNand multiple other medical problems. she was seen about 1.5 weeks ago and admitted for the same. MD Complaint: other (denies chest pain) -: Gradual, hour(s) (few) Onset: during rest Severity scale (0 -10): 5 Quality: aching, sharp Improves With: medication-other Worsens With: nothing Context: other (chronic) re: nausea, vomting. denies: dyspnea Other Symptoms: denies: cough, fever, syncope Treatments Prior to Arrival: none - Related Data Home Medications Medication Instructions Recorded Confirmed Last Taken Pantoprazole [Protonix TAB] 40 mg PO QDAY 08/08/17 08/08/17 Unknown Sevelamer Carbonate [Renvela] 800 mg PO TID 08/08/17 08/08/17 Unknown levETIRAcetam [Keppra] 500 mg PO BID 08/08/17 08/08/17 Unknown Previous Rx's Medication Instructions Recorded Last Taken Type Dicyclomine [Bentyl] 20 mg PO QID PRN #60 capsule 06/27/17 Unknown Rx Gabapentin [Neurontin] 100 mg PO TID #90 capsule 06/27/17 Unknown Rx Labetalol HCl 300 mg PO TID #90 tablet 06/27/17 Unknown Rx Losartan [Cozaar] 100 mg PO BID #60 tablet 06/27/17 Unknown Rx NIFEdipine XL [Procardia Xl] 90 mg PO QDAY #30 tablet 06/27/17 Unknown Rx hydrALAZINE [Apresoline TAB] 100 mg PO TID #90 tab 06/27/17 Unknown Rx HYDROmorphone [Dilaudid] 2 mg PO ONCE #10 tablet 08/15/17 Unknown Rx Ondansetron [Zofran INJ] 8 mg PO ONCE #12 vial 08/15/17 Unknown Rx Allergies Allergy/AdvReac Type Severity Reaction Status Date / Time lisinopril Allergy Shortness Verified 06/04/17 07:41 of Breath oxycodone HCl [From Percocet] Allergy Itching Verified 06/04/17 07:41 morphine AdvReac Anaphylaxis Verified 06/04/17 07:41 Heart Score - HEART Score History: Slightly suspicious EKG: Normal Age: < 45 Risk factors: > 3 risk factors or hx of atherosclerotic disease Troponin: 1-3x normal limit HEART Score: 3 ED Review of Systems ROS: Stated complaint: ABDOMINAL PAIN,CHEST PAIN,TOBIAS Other details as noted in HPI Constitutional: denies: chills, fever Eyes: denies: eye pain, eye discharge, vision change ENT: denies: ear pain, throat pain Respiratory: denies: cough, shortness of breath, wheezing Cardiovascular: denies: chest pain, palpitations Endocrine: no symptoms reported Gastrointestinal: nausea, vomiting. denies: abdominal pain, diarrhea Genitourinary: denies: urgency, dysuria, discharge Musculoskeletal: denies: back pain, joint swelling, arthralgia Skin: denies: rash, lesions Neurological: denies: headache, weakness, paresthesias Psychiatric: denies: anxiety, depression Hematological/Lymphatic: denies: easy bleeding, easy bruising ED Past Medical Hx - Past Medical History Hx Hypertension: Yes Hx CVA: No Hx Heart Attack/AMI: No Hx Congestive Heart Failure: Yes Hx Diabetes: Yes Hx Deep Vein Thrombosis: No Hx Pulmonary Embolism: No Hx GERD: No Hx Liver Disease: No Hx Renal Disease: Yes (Dialysis MWF) Hx Sickle Cell Disease: No Hx Arthritis: Yes Hx Headaches / Migraines: No Hx Seizures: Yes Hx Kidney Stones: No Hx Psychiatric Treatment: No Hx Asthma: Yes Hx COPD: Yes Hx Tuberculosis: No Hx Dementia: No Hx HIV: No Additional medical history: gastroparesis. Recent infection to right great toe , hospitalized at [facility]. - Surgical History Hx Coronary Stent: No Hx Open Heart Surgery: No Hx Pacemaker: No Hx Internal Defibrillator: No Hx Cholecystectomy: Yes (18 years ago) Hx Appendectomy: No Hx Breast Surgery: No Additional Surgical History: c section, tubal ligation. fistula right arm - Social History Smoking Status: Light Tobacco Smoker - Medications Home Medications: Home Medications Medication Instructions Recorded Confirmed Last Taken Type Dicyclomine [Bentyl] 20 mg PO QID PRN #60 capsule 06/27/17 08/08/17 Unknown Rx Gabapentin [Neurontin] 100 mg PO TID #90 capsule 06/27/17 08/08/17 Unknown Rx Labetalol HCl 300 mg PO TID #90 tablet 06/27/17 08/08/17 Unknown Rx Losartan [Cozaar] 100 mg PO BID #60 tablet 06/27/17 08/08/17 Unknown Rx NIFEdipine XL [Procardia Xl] 90 mg PO QDAY #30 tablet 06/27/17 08/08/17 Unknown Rx hydrALAZINE [Apresoline TAB] 100 mg PO TID #90 tab 06/27/17 08/08/17 Unknown Rx Pantoprazole [Protonix TAB] 40 mg PO QDAY 08/08/17 08/08/17 Unknown History Sevelamer Carbonate [Renvela] 800 mg PO TID 08/08/17 08/08/17 Unknown History levETIRAcetam [Keppra] 500 mg PO BID 08/08/17 08/08/17 Unknown History HYDROmorphone [Dilaudid] 2 mg PO ONCE #10 tablet 08/15/17 Unknown Rx Ondansetron [Zofran INJ] 8 mg PO ONCE #12 vial 08/15/17 Unknown Rx ED Physical Exam - General Limitations: No Limitations General appearance: alert, in distress (useated) - Head Head exam: Present: atraumatic, normocephalic - Eye Eye exam: Present: normal appearance, EOMI. Absent: scleral icterus, conjunctival injection - ENT ENT exam: Present: mucous membranes moist, other (missing teeth) - Neck Neck exam: Present: normal inspection, full ROM - Respiratory Respiratory exam: Present: normal lung sounds bilaterally. Absent: respiratory distress - Cardiovascular Cardiovascular Exam: Present: regular rate, normal rhythm. Absent: systolic murmur, diastolic murmur, rubs, gallop - GI/Abdominal GI/Abdominal exam: Present: soft, normal bowel sounds. Absent: distended, tenderness, guarding, rebound - Extremities Exam Extremities exam: Present: normal inspection - Back Exam Back exam: Present: normal inspection - Neurological Exam Neurological exam: Present: alert, oriented X3 - Psychiatric Psychiatric exam: Present: normal affect, normal mood - Skin Skin exam: Present: warm, dry, intact, normal color. Absent: rash ED Course Vital Signs 08/14/17 08/15/17 08/15/17 23:48 00:00 00:29 Temperature 98.4 F 98.5 F 97.6 F Pulse Rate 210 H 96 H 97 H Respiratory 18 20 18 Rate Blood Pressure 226/100 205/95 Blood Pressure 185/102 [Left] O2 Sat by Pulse 82 L 100 Oximetry 08/15/17 03:18 Temperature 98 F Pulse Rate 99 H Respiratory Rate Blood Pressure Blood Pressure 239/108 [Left] O2 Sat by Pulse Oximetry ED Medical Decision Making - Lab Data Result diagrams: 08/15/17 00:32 08/15/17 00:32 - EKG Data EKG shows normal: sinus rhythm, axis, intervals, QRS complexes Rate: normal - Radiology Data Radiology results: report reviewed (normal) - Medical Decision Making Pt is better and has this as a chronic issue thus there is no need for admission. I will give her another dose of pain medication discharge her home. Critical care attestation.: If time is entered above; I have spent that time in minutes in the direct care of this critically ill patient, excluding procedure time. ED Disposition Clinical Impression: Chest pain Disposition: DC-01 TO HOME OR SELFCARE Is pt being admited?: No Does the pt Need Aspirin: No Condition: Stable Instructions: Chest Pain (ED) Prescriptions: HYDROmorphone [Dilaudid] 2 mg PO ONCE #10 tablet Ondansetron [Zofran INJ] 8 mg PO ONCE #12 vial Referrals: JOCELYN ESPINOZA MD [Primary Care Provider] - 3-5 Days
[2017-08-15 03:58] LABS: Alanine Aminotransferase 27 units/L (7-56); Albumin 4.3 g/dL (3.9-5); Albumin/Globulin Ratio 1.2 %; Alkaline Phosphatase 134 units/L (35-129); Total Protein 7.9 g/dL (6.3-8.2)
[2017-08-15 04:01] LABS: Bilirubin,Direct < 0.2 mg/dL (0-0.2)
--- NOTE | 2017-08-15 04:14 | XRay Report ---
FINAL REPORT EXAM: XR ABD SERIES W CXR 1V HISTORY: abd pain,n/v TECHNIQUE: PA chest radiograph, upright and supine views of the abdomen and pelvis PRIORS: 03/08/2017, CT 07/28/2017 FINDINGS: No mediastinal shift. Mild cardiomegaly. Left chest port is unchanged. Blunting of the right costophrenic angle. No pneumothorax or focal airspace disease. No pneumoperitoneum. Upper abdominal vascular coils and surgical clips are present. Fallopian contraceptive devices noted. Bowel gas pattern is nonobstructive. No pathologic calcification or fracture. Partially imaged right femoral hardware. IMPRESSION: No acute finding. Consider additional imaging including CT for worsening/persistent symptoms. Cardiomegaly with small right pleural effusion.
[2017-08-15 05:28] VITALS: BP 180/76
== END 2017-08-15 06:51 | disposition home or self-care (01) ==
LOC: ED 23:19
DX: R07.9 Chest pain, unspecified (principal); I13.2 Hypertensive heart and chronic kidney disease with heart failure and with stage 5 chronic kidney disease, or end stage renal disease; E11.22 Type 2 diabetes mellitus with diabetic chronic kidney disease; N18.6 End stage renal disease; I50.9 Heart failure, unspecified; M19.90 Unspecified osteoarthritis, unspecified site; J44.9 Chronic obstructive pulmonary disease, unspecified; F17.210 Nicotine dependence, cigarettes, uncomplicated; Z99.2 Dependence on renal dialysis; Z88.6 Allergy status to analgesic agent; Z88.8 Allergy status to other drugs, medicaments and biological substances
CPT/HCPCS: 36415; 74022; 80048; 80061; 80074; 84484; 85025; 93005; 93010; 96374; 96375; 96376; 99284; J1170; J1200; J2405